=== PATIENT | female | born 1950 | race Caucasian/White ===

== ENCOUNTER 2017-08-05 15:41 | Inpatient (IN) | payer MEDICARE ==
[~2017-08-05] VITALS: Ht 172.7 cm; Wt 85.9 kg
[2017-08-05] VITALS (14 sets, daily range): BP systolic 183–211; BP diastolic 84–102; PULSE 57–102; RESP 14–17; TEMP 95.6–98.7; O2SAT 98–100
[~2017-08-05 15:41] MED LIST: ALEN70TA39 PO; ASPI81TA82 PO; CEFU1TAB42 PO; DEPA500T PO; DITR15TA PO; FISH100020 PO; LEVO75TA3 PO; LUMI0.01 EACH EYE; TOPA100T8 PO; UNIV15TA PO; [UNRECOGNIZED DRUG - CODE] PO
[2017-08-05] MEDS ORDERED: TOPI1TAB36 PO (15:52)
[2017-08-05] MEDS ORDERED: LUMI0.01 EACH EYE (15:52)
[2017-08-05] MEDS ORDERED: ALEN1TAB48 PO (15:52)
[2017-08-05] MEDS ORDERED: DEPA500T3 PO (15:52)
[2017-08-05] MEDS ORDERED: LEVO75TA3 PO (15:52)
[2017-08-05] MEDS ORDERED: ASPI81TA81 PO (15:52)
[2017-08-05] MEDS ORDERED: OXYB15TA PO (15:52)
[2017-08-05] MEDS ORDERED: DITR15TA PO (15:52)
[2017-08-05] MEDS ORDERED: LORazepam 2 MG/ML VIAL ONE (15:53)
[2017-08-05] MEDS ORDERED: MOEX15TA PO (15:59)
[2017-08-05] MEDS ORDERED: LORazepam 2 MG/ML VIAL IV PUSH ONE (16:00)
--- NOTE | 2017-08-05 16:02 | PD ---
HPI Chief Complaint: Altered Mental Status Time Seen by Provider: 15:46 Travel History International Travel<30 days: No Contact w/Intl Traveler<30days: No Traveled to known affect area: No History of Present Illness HPI 67-year-old female that presents to the ED via ambulance for evaluation of altered mental status. Patient apparently has a significant history of seizures. was at bedside on presentation. Per patient had an episode of slurred speech and confusion where she was altered. Per she' s had similar episodes like this whenever she gets a grand mal seizure. Per she seemed to be okay to the point that were he to the dresser and was cannot bring her here but by the time he got her dressed she started having grand mal seizure. She completely became altered. Ambulance showed up and was brought here for evaluation. Per patient did not fell or hit her head. No history of CVA. History significant for seizure disorder taking Depakote and Topamax. Patient apparently is compliant with his medications. No drugs or alcohol per . Patient has a history of hypertension and high cholesterol. Patient follows with Dr. Headley as her neurologist. Has not had a seizure in the past 3 years. She has not been able to give any history or obey commands since episode about less than an hour ago. No history is obtainable from patient. PFSH Past Medical History Arthritis: Yes Asthma: Yes Cancer: No Cardiovascular Problems: Yes High Cholesterol: Yes Congestive Heart Failure: No COPD: No Cerebrovascular Accident: No Diabetes: No Endocrine: Yes Gastrointestinal Disorders: Yes GERD: No Genitourinary: No Hypertension: Yes Immune Disorder: No Implanted Vascular Access Dvce: Yes Musculoskeletal: Yes Neurologic: Yes Psychiatric: No Reproductive: No Respiratory: Yes Migraines: Yes Seizures: Yes (last seizure dec, ) Thyroid Disease: Yes (HYPOTHYROIDISM) Ulcer: Yes Menopausal: Yes Past Surgical History Abdominal Surgery: Yes (hyst and ) Body Medical Devices: bilateral knee replacements Cardiac Surgery: No Ear Surgery: No Endocrine Surgery: No Eye Surgery: Yes (cataract removal) Genitourinary Surgery: No Gynecologic Surgery: Yes (, HYSTERECTOMY) Joint Replacement: Yes (BILATERAL KNEE REPLACEMENT) Neurologic Surgery: Yes (seizures) Oral Surgery: No Thoracic Surgery: Yes Other Surgery: Yes Social History Alcohol Use: No Tobacco Use: No Substance Use: No Allergies-Medications (Allergen,Severity, Reaction): Coded Allergies: fluconazole (Unverified Allergy, Severe, 08/05/17) hydromorphone (Unverified Allergy, Severe, 08/05/17) levetiracetam (Unverified Allergy, Severe, Anaphylaxis, 08/05/17) rifampin (Unverified Allergy, Severe, 08/05/17) phenytoin (Unverified Allergy, Mild, Rash, 08/05/17) Reported Meds & Prescriptions Reported Meds & Active Scripts Active Reported Moexipril (Moexipril HCl) 15 Mg Tab 15 Mg PO DAILY Aspir-81 (Aspirin) 81 Mg Tabdr 81 Mg PO DAILY Depakote ER (Divalproex Sodium) 500 Mg Louann 1,000 Mg PO BID Ditropan XL 24 HR (Oxybutynin Chloride) 15 Mg Tab 15 Mg PO DAILY Levothyroxine (Levothyroxine Sodium) 75 Mcg Tab 75 Mcg PO DAILY Oxybutynin ER 24 HR (Oxybutynin Chloride) 15 Mg Tab 15 Mg PO DAILY Alendronate (Alendronate Sodium) 70 Mg Tab 70 Mg PO Q7D Lumigan Opth Drops (Bimatoprost) 0.01% Soln 1 Drop EACH EYE HS Topiramate 50 Mg Tab 100 Mg PO BID Review of Systems ROS Limitations: Altered Mental Status Except as stated in HPI: all other systems reviewed are Neg Physical Exam Exam Limitations: Altered Mental Status Narrative GENERAL: SKIN: Warm and dry. HEAD: Atraumatic. Normocephalic. EYES: Pupils equal and round 4 mm reactive and accommodation. No scleral icterus. No injection or drainage. Vision and gaze moves to the right side with horizontal nystagmus noted ENT: No nasal bleeding or discharge. Mucous membranes pink and moist. Tongue is midline. No uvula deviation. NECK: Trachea midline. No JVD. CARDIOVASCULAR: Regular rate and rhythm. No murmurs, S3, S4. RESPIRATORY: No accessory muscle use. Clear to auscultation. Breath sounds equal bilaterally. GASTROINTESTINAL: Abdomen soft, non-tender, nondistended. Hepatic and splenic margins not palpable. MUSCULOSKELETAL: Extremities without clubbing, cyanosis, or edema. No obvious deformities. Cannot assess strength. Patient does appear to have full strength on the left hand which is the only one that she seems to be able to hold but unclear this is done by command or secondary to possible seizure. NEUROLOGICAL: Altered. No obvious cranial nerve deficits. Motor grossly within normal limits. Cannot assess strength secondary to patient's status. No speech can be obtained from patient. PSYCHIATRIC: Altered mood and affect; insight and judgment cannot assess. Data Data Last Documented VS Vital Signs Date Time Temp Pulse Resp B/P (MAP) Pulse Ox O2 Delivery O2 Flow Rate FiO2 08/05/17 17:22 57 14 203/90 (127) 100 Ventilator 60 08/05/17 16:43 95.6 Orders Orders Electrocardiogram (08/05/17 15:51) Complete Blood Count With Diff (08/05/17 15:51) Comprehensive Metabolic Panel (08/05/17 15:51) Ckmb (Isoenzyme) Profile (08/05/17 15:51) Troponin I (08/05/17 15:51) Prothrombin Time / Inr (Pt) (08/05/17 15:51) Act Partial Throm Time (Ptt) (08/05/17 15:51) Blood Culture (08/05/17 15:51) Urinalysis - C+S If Indicated (08/05/17 15:51) Cath For Specimen (08/05/17 15:51) Magnesium (Mg) (08/05/17 15:51) Thyroid Stimulating Hormone (08/05/17 15:51) Chest, Single Ap (08/05/17 15:51) Ct Brain W/O Iv Contrast(Rout) (08/05/17 15:51) Iv Access Insert/Monitor (08/05/17 15:51) Ecg Monitoring (08/05/17 15:51) Oxygen Administration (08/05/17 15:51) Oximetry (08/05/17 15:51) Blood Glucose (08/05/17 15:51) Drug Screen, Random Urine (08/05/17 15:51) Alcohol (Ethanol) (08/05/17 15:51) Salicylates (Aspirin) (08/05/17 15:51) Tylenol (Acetaminophen) (08/05/17 15:51) Lorazepam Inj (Ativan Inj) (08/05/17 16:00) Valproic Acid (Depakene) (08/05/17 15:51) Topiramate (Topamax) (08/05/17 15:51) Lactic Acid (08/05/17 15:51) Lorazepam Inj (Ativan Inj) (08/05/17 15:53) Etomidate Inj (Amidate Inj) (08/05/17 16:20) Succinylcholine Inj (Quelicin Inj) (08/05/17 16:20) Propofol 1000 Mg/100 Ml Inj (Diprivan 10 (08/05/17 16:30) Chest, Single Ap (08/05/17 ) Urinary Catheter Insert/Apply (08/05/17 16:30) Restraints Non-Violent SUKHWINDER.Q3H (08/05/17 17:15) Sodium Chlor 0.9% 1000 Ml Inj (Ns 1000 M (08/05/17 17:19) Arterial Blood Gas (Abg) (08/05/17 ) Admit Order (Ed Use Only) (08/05/17 17:26) Labs Laboratory Tests Test 08/05/17 15:50 08/05/17 16:38 08/05/17 16:52 08/05/17 17:20 White Blood Count 11.0 TH/MM3 Red Blood Count 3.99 MIL/MM3 Hemoglobin 13.6 GM/DL Hematocrit 41.3 % Mean Corpuscular Volume 103.5 FL Mean Corpuscular Hemoglobin 34.2 PG Mean Corpuscular Hemoglobin Concent 33.0 % Red Cell Distribution Width 13.9 % Platelet Count 158 TH/MM3 Mean Platelet Volume 8.8 FL Neutrophils (%) (Auto) 41.0 % Lymphocytes (%) (Auto) 46.4 % Monocytes (%) (Auto) 9.3 % Eosinophils (%) (Auto) 2.8 % Basophils (%) (Auto) 0.5 % Neutrophils # (Auto) 4.5 TH/MM3 Lymphocytes # (Auto) 5.1 TH/MM3 Monocytes # (Auto) 1.0 TH/MM3 Eosinophils # (Auto) 0.3 TH/MM3 Basophils # (Auto) 0.1 TH/MM3 CBC Comment DIFF FINAL Differential Comment Prothrombin Time 10.6 SEC Prothromb Time International Ratio 1.0 RATIO Activated Partial Thromboplast Time 24.0 SEC Blood Urea Nitrogen 27 MG/DL Creatinine 1.16 MG/DL Random Glucose 123 MG/DL Total Protein 7.6 GM/DL Albumin 3.9 GM/DL Calcium Level 9.0 MG/DL Magnesium Level 2.1 MG/DL Alkaline Phosphatase 44 U/L Aspartate Amino Transf (AST/SGOT) 31 U/L Alanine Aminotransferase (ALT/SGPT) 19 U/L Total Bilirubin 0.3 MG/DL Sodium Level 140 MEQ/L Potassium Level 4.1 MEQ/L Chloride Level 105 MEQ/L Carbon Dioxide Level 28.4 MEQ/L Anion Gap 7 MEQ/L Estimat Glomerular Filtration Rate 46 ML/MIN Total Creatine Kinase 66 U/L Troponin I 0.02 NG/ML Thyroid Stimulating Hormone 3rd Gen 3.440 uIU/ML Salicylates Level 3.5 MG/DL Acetaminophen Level LESS THAN 2.0 MCG/ML Valproic Acid (Depakene) Level 132 MCG/ML Ethyl Alcohol Level LESS THAN 3 MG/DL Lactic Acid Level 0.8 mmol/L Urine Color YELLOW Urine Turbidity CLEAR Urine pH 6.0 Urine Specific [place] 1.021 Urine Protein 100 mg/dL Urine Glucose (UA) NEG mg/dL Urine Ketones NEG mg/dL Urine Occult Blood LARGE Urine Nitrite NEG Urine Bilirubin NEG Urine Urobilinogen LESS THAN 2.0 MG/DL Urine Leukocyte Esterase NEG Urine RBC 40 /hpf Urine WBC 6 /hpf Microscopic Urinalysis Comment CATH-CULT NOT IND Urine Opiates Screen NEG Urine Barbiturates Screen NEG Urine Amphetamines Screen NEG Urine Benzodiazepines Screen NEG Urine Cocaine Screen NEG Urine Cannabinoids Screen NEG Blood Gas Puncture Site RT RADIAL Blood Gas Patient Temperature 98.6 Blood Gas HCO3 22 mmol/L Blood Gas Base Excess -2.1 mmol/L Blood Gas Oxygen Saturation 98 % Arterial Blood pH 7.37 Arterial Blood Partial Pressure CO2 40 mmHg Arterial Blood Partial Pressure O2 179 mmHG Arterial Blood Oxygen Content 16.9 Vol % Arterial Blood Carboxyhemoglobin 0.9 % Arterial Blood Methemoglobin 0.8 % Blood Gas Hemoglobin 12.0 G/DL Oxygen Delivery Device VENTILATOR Blood Gas Ventilator Setting [facility]//500/R14/P5/1 Blood Gas Inspired Oxygen 60 % [facility] Medical Decision Making Medical Screen Exam Complete: Yes Emergency Medical Condition: Yes Medical Record Reviewed: Yes Interpretation(s) CBC & BMP Diagram 08/05/17 15:50 Total Protein 7.6, Albumin 3.9, Calcium Level 9.0, Magnesium Level 2.1, Alkaline Phosphatase 44 L, Aspartate Amino Transf (AST/SGOT) 31, Alanine Aminotransferase (ALT/SGPT) 19, Total Bilirubin 0.3 depakoet elevated in the 130s tox negative Last Impressions Head CT 08/05/17 1551 Signed Impressions: Service Date/Time: Saturday, August 05, 2017 15:55 - CONCLUSION: Negative noncontrast CT. Mustapha Grossman MD Chest X-Ray 08/05/17 1551 Signed Impressions: Service Date/Time: Saturday, August 05, 2017 16:08 - CONCLUSION: The study is more Midinspiratory with patchy opacity now present in both lungs with no focal consolidation. This could represent a viral pneumonitis. Mustapha Grossman MD Chest X-Ray 08/05/17 0000 Signed Impressions: Service Date/Time: Saturday, August 05, 2017 16:41 - CONCLUSION: 1. Middle intubation and placement of nasogastric tube. 2. The lungs are now clear. Mustapha Grossman MD EKG shows sinus rhythm with no sign of acute ischemia or arrhythmia noted by me and attending. Differential Diagnosis Seizure versus altered mental status versus CVA versus status epilepticus versus respiratory failure versus medication side effect Narrative Course 67-year-old female that presents to the ED for evaluation of altered mental status. Patient was properly examined and was found to have signs and symptoms of unclear etiology but definitely consistent with upper mental status possible seizure versus CVA. I had my attending Dr. Taylor immediately evaluated the patient after I evaluated the patient. She recommends stat CT and also believes that this likely might be more seizure related secondary to her gaze and her nystagmus. Patient was given Ativan IV. CT was negative for CVA. Patient is started having difficulty with her breathing having more labored breathing. Because of this the decision was made to intubate the patient. Please refer to my attendings note on the procedure. Labs were essentially unremarkable other than for elevated Depakote level. My attending spoke with Dr. Gill who admitted the patient to the ICU. This was discussed with the family who agrees with plan. Procedures EKG Prior to Arrival: No Diagnosis Primary Impression: Status epilepticus Additional Impressions: Valproic acid toxicity Qualified Codes: T42.6X1A - Poisoning by other antiepileptic and sedative- hypnotic drugs, accidental (unintentional), initial encounter Acute respiratory failure Qualified Codes: J96.00 - Acute respiratory failure, unspecified whether with hypoxia or hypercapnia Hypertension Qualified Codes: I10 - Essential (primary) hypertension Altered mental status Qualified Codes: R41.82 - Altered mental status, unspecified Admitting Information Admitting Physician Requests: Admit Paul Banks Aug 05, 2017 16:02
[2017-08-05] MEDS ORDERED: SUCCINYLCHOLINE CHLORIDE 200 MG/10 ML VIAL ONE (16:20)
[2017-08-05] MEDS ORDERED: ETOMIDATE 40 MG/20 ML VIAL ONE (16:20)
--- NOTE | 2017-08-05 16:20 | RADRPT ---
EXAM DATE/TIME: 08/05/2017 15:55 [facility] COMPARISON: CT BRAIN W/O CONTRAST, December 24, 2014, 22:34. INDICATIONS : Altered mental status. RADIATION DOSE: 56.35 CTDIvol (mGy) MEDICAL HISTORY : Seizures. Hypertension. SURGICAL HISTORY : Hysterectomy. ENCOUNTER: Initial ACUITY: 1 day PAIN SCALE: Non-responsive LOCATION: cranial TECHNIQUE: Multiple contiguous axial images were obtained of the head. Using automated exposure control and adj ustment of the mA and/or kV according to patient size, radiation dose was kept as low as reasonably a chievable to obtain optimal diagnostic quality images. DICOM format image data is available electro nically for review and comparison. FINDINGS: CEREBRUM: The ventricles are normal for age with moderate atrophic change. No evidence of midline shift, mass l esion, hemorrhage or acute infarction. No extra-axial fluid collections are seen. POSTERIOR FOSSA: The cerebellum and brainstem are intact. The 4th ventricle is midline. The cerebellopontine angle i s unremarkable. EXTRACRANIAL: The visualized portion of the orbits is intact. SKULL: The calvaria is intact. No evidence of skull fracture. CONCLUSION: Negative noncontrast CT. Mustapha Grossman MD on August 05, 2017 at 16:18 Board Certified Radiologist. This report was verified electronically.
[2017-08-05 16:21] LABS: AUTOMATED NEUTROPHIL # 4.5 TH/MM3 (1.8-7.7); BASOPHIL # 0.1 TH/MM3 (0-0.2); BASOPHIL % 0.5 % (0.0-2.0); EOSINOPHIL # 0.3 TH/MM3 (0-0.4); EOSINOPHIL % 2.8 % (0.0-4.0); HEMATOCRIT 41.3 % (35.0-46.0); HEMO FLAGS DIFF FINAL; LYMPH % 46.4 % (9.0-44.0); LYMPHOCYTE # 5.1 TH/MM3 (1.0-4.8); MEAN CELL VOLUME 103.5 FL (80.0-100.0); MEAN CORPUSCULAR HEMOGLOBIN 34.2 PG (27.0-34.0); MONO % 9.3 % (0.0-8.0); PLATELET COUNT 158 TH/MM3 (150-450); RED BLOOD COUNT 3.99 MIL/MM3 (4.00-5.30); RED CELL DISTRIBUTION WIDTH 13.9 % (11.6-17.2)
--- NOTE | 2017-08-05 16:29 | RADRPT ---
EXAM DATE/TIME: 08/05/2017 16:08 [facility] COMPARISON: CHEST SINGLE AP, July 15, 2015, 4:19. INDICATIONS : Short of Breath MEDICAL HISTORY : Hypertension. Seizures SURGICAL HISTORY : Hysterectomy. ENCOUNTER: Initial ACUITY: 1 day PAIN SCORE: Non-responsive. LOCATION: Bilateral chest FINDINGS: A single AP erect portable view of the chest was obtained and demonstrates new patchy opacity in both perihilar regions at lung bases with no focal consolidation or effusion. The heart size is at the up per limits of normal. Postsurgical changes again noted in the spine with posterior fixation rods. The bony thorax is otherwise unremarkable. There are overlying electrocardiogram leads. CONCLUSION: The study is more Midinspiratory with patchy opacity now present in both lungs with no focal consolid ation. This could represent a viral pneumonitis. Mustapha Grossman MD on August 05, 2017 at 16:26 Board Certified Radiologist. This report was verified electronically.
[2017-08-05 16:37] LABS: PROTHROMBIN TIME - PATIENT 10.6 SEC (9.8-11.6)
[2017-08-05] MEDS: PROPOFOL 1000 MG/100 ML INJ 100 ML IV PRN ×2 (16:42→21:49)
[2017-08-05 17:06] LABS: ACETAMINOPHEN LESS THAN 2.0 MCG/ML (10.0-30.0); ALKALINE PHOSPHATASE 44 U/L (45-117); ALT (GPT) 19 U/L (10-53); ANION GAP 7 MEQ/L (5-15); AST (GOT) 31 U/L (15-37); BICARBONATE 28.4 MEQ/L (21.0-32.0); BLOOD UREA NITROGEN 27 MG/DL (7-18); CHLORIDE 105 MEQ/L (98-107); GLOMERULAR FILTRATION RATE 46 ML/MIN (>89); MAGNESIUM 2.1 MG/DL (1.5-2.5); POTASSIUM 4.1 MEQ/L (3.5-5.1); SODIUM (NA) 140 MEQ/L (136-145); TOTAL BILIRUBIN ADULT 0.3 MG/DL (0.2-1.0)
--- NOTE | 2017-08-05 17:06 | RADRPT ---
EXAM DATE/TIME: 08/05/2017 16:41 [facility] COMPARISON: CHEST SINGLE AP, August 05, 2017, 16:08. INDICATIONS : Post intubation. MEDICAL HISTORY : Hypertension. Seizures. SURGICAL HISTORY : Hysterectomy. ENCOUNTER: Initial ACUITY: 1 day PAIN SCORE: Non-responsive. LOCATION: Bilateral chest FINDINGS: A single view of the chest demonstrates the lungs to be symmetrically aerated without evidence of mas s, infiltrate or effusion. The cardiomediastinal contours are unremarkable. Osseous structures are stable in appearance with postoperative changes. The patient is status post intubation with the endot rayray tube tip approximately 2 cm above the alfreda. Nasogastric tube has been placed and is seen co ursing through the esophagus to the stomach. CONCLUSION: 1. Middle intubation and placement of nasogastric tube. 2. The lungs are now clear. Mustapha Grossman MD on August 05, 2017 at 17:04 Board Certified Radiologist. This report was verified electronically.
[2017-08-05 17:07] LABS: ALCOHOL LESS THAN 3 MG/DL (0-5); CREATINE KINASE 66 U/L (26-192)
[2017-08-05] MEDS ORDERED: SODIUM CHLOR 0.9% 1000 ML INJ 1,000 ML IV SCH (17:19)
[2017-08-05 17:32] LABS: BLOOD GAS BASE EXCESS -2.1 mmol/L (-2-2); BLOOD GAS CARBOXYHEMOGLOBIN 0.9 % (0-4); BLOOD GAS HCO3 22 mmol/L (22-26); BLOOD GAS METHEMOGLOBIN 0.8 % (0-2); BLOOD GAS O2 HGB SATURATION 98 % (90-100); BLOOD GAS OXYGEN CONTENT 16.9 Vol % (12.0-20.0); BLOOD GAS PCO2 40 mmHg (38-42); BLOOD GAS PO2 179 mmHG (61-120); TEMP CORR TO 98.6
[2017-08-05 17:33] LABS: CRITICAL VALUE NO; DRAW SITE RT RADIAL; FIO2 60 %; NUMBER OF ARTERIAL PUNCTURES 1; OXYGEN DEVICE VENTILATOR; STAT YES; ULNAR PULSE Y; VENT SETTINGS PRVC/AC/500/R14/P5/1
[2017-08-05] MEDS ORDERED: MAGNESIUM HYDROXIDE SUSP 30 ML CUP PO PRN (17:45)
[2017-08-05] MEDS ORDERED: LACTULOSE SYRUP 20 GM/30 ML CUP PO PRN (17:45)
[2017-08-05] MEDS ORDERED: SODIUM CHLORIDE 0.9% FLUSH 10 ML FLUSH IV FLUSH PRN (17:45)
[2017-08-05] MEDS ORDERED: LORazepam 2 MG/ML VIAL IV PUSH PRN (17:45)
[2017-08-05] MEDS ORDERED: ONDANSETRON HCL 4 MG/2 ML VIAL IV PUSH PRN (17:45)
[2017-08-05] MEDS ORDERED: MISCELLANEOUS NURSING INFORMATION XX SCH (17:45)
[2017-08-05] MEDS ORDERED: RESP: ALBUTEROL 2.5 MG/3 ML NEB (PRN) INH (17:45)
[2017-08-05] MEDS ORDERED: MIDAZOLAM 100 MG/100 ML INJ 100 ML IV PRN (17:45)
[2017-08-05] MEDS ORDERED: BISACODYL 10 MG SUPP RECTAL PRN (17:45)
[2017-08-05] MEDS ORDERED: CHLORHEXIDINE GLUCONATE 2 % 1 PACK (2 CLOTHS) TOP PRN (17:45)
[2017-08-05] MEDS ORDERED: SENNOSIDES 8.6 MG TAB PO PRN (17:45)
[2017-08-05 17:52] LABS: BLOOD, URINE LARGE (NEG); GLUCOSE,URINE NEG (NEG); KETONE, URINE NEG (NEG); NITRITE,URINE NEG (NEG); URINE COLOR YELLOW (YELLW/STRAW)
--- NOTE | 2017-08-05 17:52 | HHI.HP ---
[facility] Service Critical Care Medicine Primary Care Physician Tye Wing MD Admission Diagnosis Seizure, VDRF Diagnosis: (1) Acute respiratory failure Diagnosis: Principal (2) Hypothyroidism Diagnosis: Secondary (3) Dyslipidemia Diagnosis: Secondary (4) Aspiration into airway Diagnosis: Principal (5) Status epilepticus Diagnosis: Principal (6) Low back pain Diagnosis: Principal (7) Hypertension Diagnosis: Principal (8) Elevated IOP Diagnosis: Secondary (9) Gastroesophageal reflux disease Diagnosis: Principal (10) Overactive bladder Diagnosis: Secondary Chief Complaint: Patient found at home actively seizing and unresponsive Travel History International Travel<30 Days: No Contact w/Intl Traveler <30 Da: No Traveled to Known Affected Are: No History of Present Illness 67-year-old female. Date of admission 08/05/2017. Past medical history includes known seizure disorder on divalproex sodium and recently discontinued topiramate who presents to the [facility] ED via ambulance for evaluation of altered mental status. According to the Fatuma, this patient had an episode of nonsensical speech and confusion where she was a little bit altered after eating out at a local restaurant around 2 PM. According to her she has had similar episodes like this whenever she gets a grand mal seizure. She was driven home and was given 1000 mg of divalproex sodium as he thought she might not have taken her medication today. At that point, completely became altered. EMS arrived and was brought here for evaluation. Per patient did not fell or hit her head. No history of CVA. Patient apparently is compliant with his medications. No drugs or alcohol per . Patient follows with Dr. Headley as her neurologist and was recently told to discontinue her topiramate secondary to tremors. She has not had a seizure since 2014. At this facility, patient was altered the point were Dr. Taylor/ED physician and her clinical judgment assessed she needed oral airway protection and was intubated using 40 mg etomidate and 200 mg succinylcholine. Follow-up laboratories revealed normal CBC with slight acute kidney injury. Head CT showed no acute intracranial findings. Valproic acid was 132. Topiramate level pending. Patient is currently on Diprivan at 30 mu./kg per minute in the ED and spontaneous movement involving bilateral upper and lower extremities. She is quite hypertensive. We are asked to admit. Review of Systems ROS Limitations: Intubated Past Family Social History Allergies: Coded Allergies: fluconazole (Unverified Allergy, Severe, 08/05/17) hydromorphone (Unverified Allergy, Severe, 08/05/17) levetiracetam (Unverified Allergy, Severe, Anaphylaxis, 08/05/17) rifampin (Unverified Allergy, Severe, 08/05/17) phenytoin (Unverified Allergy, Mild, Rash, 08/05/17) Past Medical History Seizure disorder Osteoarthritis Elevated IOC Overactive bladder Hypothyroidism Gastroesophageal reflux disease Back low back pain Hypertension Dyslipidemia Past Surgical History Rotator cuff repair Hysterectomy Bilateral knees 12 Low back surgery/lumbar 5 with bilateral Wells rods placed Reported Medications Moexipril (Moexipril HCl) 15 Mg Tab 15 Mg PO DAILY Aspir-81 (Aspirin) 81 Mg Tabdr 81 Mg PO DAILY Depakote ER (Divalproex Sodium) 500 Mg Louann 1,000 Mg PO BID Ditropan XL 24 HR (Oxybutynin Chloride) 15 Mg Tab 15 Mg PO DAILY Levothyroxine (Levothyroxine Sodium) 75 Mcg Tab 75 Mcg PO DAILY Oxybutynin ER 24 HR (Oxybutynin Chloride) 15 Mg Tab 15 Mg PO DAILY Alendronate (Alendronate Sodium) 70 Mg Tab 70 Mg PO Q7D Lumigan Opth Drops (Bimatoprost) 0.01% Soln 1 Drop EACH EYE HS Topiramate 50 Mg Tab 100 Mg PO BID Active Ordered Medications Reviewed in EMR Family History Mother with decompensated CHF. Father not known to . No other documentation in reviewing prior records. Social History Quit EtOH and tobacco 30 years ago. No current usage present. No IV drug use. Physical Exam Vital Signs Vital Signs Date Time Temp Pulse Resp B/P (MAP) Pulse Ox O2 Delivery O2 Flow Rate FiO2 08/05/17 17:30 60 14 189/84 (119) 100 Ventilator 60 08/05/17 17:22 57 14 203/90 (127) 100 Ventilator 60 08/05/17 17:20 60 08/05/17 17:12 61 14 199/91 (127) 100 Ventilator 60 08/05/17 17:08 Ventilator 60 08/05/17 17:08 100 Ventilator 60 08/05/17 16:43 95.6 08/05/17 16:22 98 100 08/05/17 15:42 102 16 183/102 (129) 98 Physical Exam GENERAL: 67-year-old female, critically ill currently orotracheally intubated SKIN: Warm and dry. No rash. HEAD: Atraumatic. Normocephalic. EYES: Pupils equal and round around 3-4 mm bilaterally and brisk. No scleral icterus. No injection or drainage. ENT: No nasal bleeding or discharge. Mucous membranes pink and moist. Orotracheally intubated NECK: Trachea midline. No JVD. Supple. CARDIOVASCULAR: Regular rate and rhythm. 2/6 systolic murmur left lower sternal border RESPIRATORY: Few fine crackles appreciated anteriorly and posteriorly to bases. No wheezing.. Breath sounds equal bilaterally. GASTROINTESTINAL: Abdomen soft, non-tender, nondistended. Hypoactive bowel sounds are appreciated MUSCULOSKELETAL: Extremities without significant peripheral edema. No obvious deformities. Band-Aids over right third and fifth toes NEUROLOGICAL: Laboratory Laboratory Tests Test 08/05/17 15:50 08/05/17 16:38 08/05/17 16:52 08/05/17 17:20 White Blood Count 11.0 Red Blood Count 3.99 Hemoglobin 13.6 Hematocrit 41.3 Mean Corpuscular Volume 103.5 Mean Corpuscular Hemoglobin 34.2 Mean Corpuscular Hemoglobin Concent 33.0 Red Cell Distribution Width 13.9 Platelet Count 158 Mean Platelet Volume 8.8 Neutrophils (%) (Auto) 41.0 Lymphocytes (%) (Auto) 46.4 Monocytes (%) (Auto) 9.3 Eosinophils (%) (Auto) 2.8 Basophils (%) (Auto) 0.5 Neutrophils # (Auto) 4.5 Lymphocytes # (Auto) 5.1 Monocytes # (Auto) 1.0 Eosinophils # (Auto) 0.3 Basophils # (Auto) 0.1 CBC Comment DIFF FINAL Differential Comment Prothrombin Time 10.6 Prothromb Time International Ratio 1.0 Activated Partial Thromboplast Time 24.0 Blood Urea Nitrogen 27 Creatinine 1.16 Random Glucose 123 Total Protein 7.6 Albumin 3.9 Calcium Level 9.0 Magnesium Level 2.1 Alkaline Phosphatase 44 Aspartate Amino Transf (AST/SGOT) 31 Alanine Aminotransferase (ALT/SGPT) 19 Total Bilirubin 0.3 Sodium Level 140 Potassium Level 4.1 Chloride Level 105 Carbon Dioxide Level 28.4 Anion Gap 7 Estimat Glomerular Filtration Rate 46 Total Creatine Kinase 66 Troponin I 0.02 Thyroid Stimulating Hormone 3rd Gen 3.440 Salicylates Level 3.5 Acetaminophen Level LESS THAN 2.0 Valproic Acid (Depakene) Level 132 Ethyl Alcohol Level LESS THAN 3 Lactic Acid Level 0.8 Blood Gas Puncture Site RT RADIAL Blood Gas Patient Temperature 98.6 Blood Gas HCO3 22 Blood Gas Base Excess -2.1 Blood Gas Oxygen Saturation 98 Arterial Blood pH 7.37 Arterial Blood Partial Pressure CO2 40 Arterial Blood Partial Pressure O2 179 Arterial Blood Oxygen Content 16.9 Arterial Blood Carboxyhemoglobin 0.9 Arterial Blood Methemoglobin 0.8 Blood Gas Hemoglobin 12.0 Oxygen Delivery Device VENTILATOR Blood Gas Ventilator Setting [facility]/AC/500/R14/P5/1 Blood Gas Inspired Oxygen 60 Test 08/05/17 17:30 Date/Time Source Procedure Growth Status 08/05/17 16:38 Blood Peripheral Aerobic Blood Culture Pending Received 08/05/17 16:38 Blood Peripheral Anaerobic Blood Culture Pending Received Result Diagram: 08/05/17 1550 08/05/17 1550 Imaging Last Impressions Head CT 08/05/17 1551 Signed Impressions: Service Date/Time: Saturday, August 05, 2017 15:55 - CONCLUSION: Negative noncontrast CT. Mustapha Grossman MD Chest X-Ray 08/05/17 1551 Signed Impressions: Service Date/Time: Saturday, August 05, 2017 16:08 - CONCLUSION: The study is more Midinspiratory with patchy opacity now present in both lungs with no focal consolidation. This could represent a viral pneumonitis. MD Nory Motai VTE Risk Assessment Caprini VTE Risk Assessment: Mod/High Risk (score >= 2) Caprini Risk Assessment Model Point Value = 1 Point Value = 2 Point Value = 3 Point Value = 5 Age 41-60 Minor surgery BMI > 25 kg/m2 Swollen legs Varicose veins or History of unexplained or recurrent spontaneous Oral contraceptives or hormone replacement Sepsis (< 1 month) Serious lung disease, including pneumonia (< 1 month) Abnormal pulmonary function Acute myocardial infarction Congestive heart failure (< 1 month) History of inflammatory bowel disease Medical patient at bed rest Age 61-74 Arthroscopic surgery Major open surgery (> 45 min) Laparoscopic surgery (> 45 min) Malignancy Confined to bed (> 72 hours) Immobilizing plaster cast Central venous access Age >= 75 History of VTE Family history of VTE Factor V Leiden Prothrombin [id number] Lupus anticoagulant Anticardiolipin antibodies Elevated serum homocysteine Heparin-induced thrombocytopenia Other congenital or acquired thrombophilia Stroke (< 1 month) Elective arthroplasty Hip, pelvis, or leg fracture Acute spinal cord injury (< 1 month) Prophylaxis Regimen Total Risk Factor Score Risk Level Prophylaxis Regimen 0-1 Low Early ambulation 2 Moderate Order ONE of the following: *Sequential Compression Device (SCD) *Heparin 5000 units SQ BID 3-4 Higher Order ONE of the following medications: *Heparin 5000 units SQ TID *Enoxaparin/Lovenox 40 mg SQ daily (WT < 150 kg, CrCl > 30 mL/min) *Enoxaparin/Lovenox 30 mg SQ daily (WT < 150 kg, CrCl > 10-29 mL/min) *Enoxaparin/Lovenox 30 mg SQ BID (WT < 150 kg, CrCl > 30 mL/min) AND/OR *Sequential Compression Device (SCD) 5 or more Highest Order ONE of the following medications: *Heparin 5000 units SQ TID (Preferred with Epidurals) *Enoxaparin/Lovenox 40 mg SQ daily (WT < 150 kg, CrCl > 30 mL/min) *Enoxaparin/Lovenox 30 mg SQ daily (WT < 150 kg, CrCl > 10-29 mL/min) *Enoxaparin/Lovenox 30 mg SQ BID (WT < 150 kg, CrCl > 30 mL/min) AND *Sequential Compression Device (SCD) Assessment and Plan Assessment and Plan Neuro/Psych: Seizure disorder NOS Elevated IOC Patient is currently on propofol drip in the ED at 30 mics grams per kilogram per minute. Transition to Midazolam drip light of seizure activity Depakote level 132 in ED recheck in a.m. Start on divalproex 500 mg IV 3 times a day in a.m. after recheck Depakote level restart topiramate 100 mg by mouth twice a day MRI brain/EEG ordered neurology consultation Home medications on divalproex sodium 1000 mg twice a day recently discontinued topiramate 100 mg by mouth twice a day Seizure precautions Urine toxicology screen pending Continue bimatoprost 0.01% 1 drop each eye at night CV: Hypertension Dyslipidemia Continue moexipril 15 mill grams by mouth daily. As needed hydralazine, labetalol and Nitropaste keep systolic blood pressure less than 170 Currently not on any lipid-lowering agents at home Continue normal saline at 84 cc an hour Resp: Acute respiratory failure secondary to altered mental status/seizure [facility] 16/500/11/17/39 Ventilator bundle Albuterol/hypertrophy results every 6 hours with albuterol aerosols every 2 hours. Dyspnea Spontaneous breathing trials daily Echocardiogram 2014 revealed EF 60-65%. Grade 1 diastolic dysfunction. Mild MR. TWILA 39 mmHg GI: Gastroesophageal reflux disease Patient is currently nothing by mouth OGT to LIWS Lansoprazole for GI prophylaxis Docusate sodium/senna 1 tablet twice a day for bowel regimen : Ardon catheter for accurate I's and O's in a critically ill patient Endo: Hypothyroidism Continue levothyroxine 75 g daily recheck TSH in a.m. Sliding-scale insulin if indicated to maintain euglycemia Renal: Acute kidney injury? Creatinine currently slightly elevated. Recheck creatinine in a.m. Monitor urine output Accurate I's and O's Heme: Macrocytosis Monitor CBC daily. Follow trends ID: Start empirically on piperacillin/tazobactam and azithromycin Blood cultures 2, sputum and urine all pending MSK: Arthritis Chronic low back pain PT evaluate and treat FEN: Replace electrolytes as clinically indicated Access - Utilize peripheral IV. Central line if indicated Prophylaxis - GI - lansoprazole - DVT - heparin/SCDs Critical Care: The total critical care time was 35 minutes. Time to perform other separately billable procedures was not included in the critical care time. Code Status Full code Discussed Condition With Dr. Chan. Burris/. Care plan discussed questions answered. Problem Qualifiers (1) Acute respiratory failure: Qualified Codes: J96.00 - Acute respiratory failure, unspecified whether with hypoxia or hypercapnia (2) Hypothyroidism: Qualified Codes: E03.9 - Hypothyroidism, unspecified (3) Aspiration into airway: Qualified Codes: T17.908A - Unspecified foreign body in respiratory tract, part unspecified causing other injury, initial encounter (4) Low back pain: Qualified Codes: M54.5 - Low back pain; G89.29 - Other chronic pain (5) Hypertension: Qualified Codes: I10 - Essential (primary) hypertension (6) Elevated IOP: Qualified Codes: H40.053 - Ocular hypertension, bilateral (7) Gastroesophageal reflux disease: Qualified Codes: K21.9 - Gastro-esophageal reflux disease without esophagitis Tonny Lomeli MD Aug 05, 2017 17:52
[2017-08-05 17:53] LABS: COMMENT (UR) CATH-CULT NOT IND; CULTURE IF INDICATED CATH CULTURE NOT IND
[2017-08-05] MEDS ORDERED: CLEVIDIPINE INJ 50 ML IV PRN (18:00)
[2017-08-05] MEDS ORDERED: NITROGLYCERIN 2% OINT 1 GM PACKET TOPICAL PRN (18:00)
[2017-08-05] MEDS: RESP: ALBUTEROL 2.5 MG/IPRATROPIUM 0.5 MG NEB (SCH) INH (20:18)
[2017-08-05] MEDS: LATANOPROST 0.005% OPHT SOLN 2.5 ML BTL EACH EYE SCH (21:00)
[2017-08-05] MEDS ORDERED: TOPIRAMATE 25 MG TAB PO SCH (21:00)
[2017-08-05] MEDS: SODIUM CHLOR 0.9% 1000 ML INJ 1,000 ML IV SCH (21:41)
[2017-08-05] MEDS: AZITHROMYCIN INJ 500 MG in SODIUM CHLOR 0.9% 250 ML INJ 250 ML IV SCH (21:42)
[2017-08-05] MEDS: TOPIRAMATE 100 MG TAB PO SCH (21:43)
[2017-08-05] MEDS: DOCUSATE SODIUM 50 MG/SENNA 8.6 MG TAB PO SCH (21:43)
[2017-08-05] MEDS: SODIUM CHLORIDE 0.9% FLUSH 10 ML FLUSH IV FLUSH SCH (21:43)
[2017-08-05] MEDS: HEPARIN SODIUM - SQ 10,000 UNITS/ML VIAL SQ SCH (21:43)
[2017-08-05] MEDS: PIPERACIL-TAZO 4.5 GM PREMIX 100 ML IV SCH (21:43)
[2017-08-05] MEDS: hydrALAZINE HCL 20 MG/ML VIAL IV PUSH PRN (21:48)
[2017-08-05] MEDS: CHLORHEXIDINE 0.12% (ORAL KIT) 15 ML CUP MT SCH (21:50)
[2017-08-06] VITALS (26 sets, daily range): BP systolic 87–223; BP diastolic 51–95; PULSE 66–92; RESP 16–19; TEMP 98–100.2; O2SAT 100
[2017-08-06] MEDS: hydrALAZINE HCL 20 MG/ML VIAL IV PUSH PRN (01:59)
[2017-08-06] MEDS: PIPERACIL-TAZO 4.5 GM PREMIX 100 ML IV SCH ×4 (01:59→21:12)
[2017-08-06] MEDS: RESP: ALBUTEROL 2.5 MG/IPRATROPIUM 0.5 MG NEB (SCH) INH ×4 (02:51→21:29)
[2017-08-06] MEDS: CHLORHEXIDINE GLUCONATE 2 % 1 PACK (2 CLOTHS) TOP SCH (03:07)
[2017-08-06] MEDS: PROPOFOL 1000 MG/100 ML INJ 100 ML IV PRN ×5 (03:07→21:15)
[2017-08-06] MEDS: HEPARIN SODIUM - SQ 10,000 UNITS/ML VIAL SQ SCH ×3 (03:07→21:12)
[2017-08-06 03:55] LABS: AUTOMATED NEUTROPHIL # 7.7 TH/MM3 (1.8-7.7); BASOPHIL # 0.1 TH/MM3 (0-0.2); BASOPHIL % 0.5 % (0.0-2.0); EOSINOPHIL # 0.1 TH/MM3 (0-0.4); EOSINOPHIL % 1.1 % (0.0-4.0); HEMATOCRIT 41.4 % (35.0-46.0); HEMO FLAGS DIFF FINAL; LYMPH % 20.1 % (9.0-44.0); LYMPHOCYTE # 2.2 TH/MM3 (1.0-4.8); MEAN CELL VOLUME 103.7 FL (80.0-100.0); MEAN CORPUSCULAR HEMOGLOBIN 34.5 PG (27.0-34.0); MEAN CORPUSCULAR HGB CONC 33.3 % (32.0-36.0); MONO % 9.8 % (0.0-8.0); NEUT % 68.5 % (16.0-70.0); PLATELET COUNT 102 TH/MM3 (150-450); RED BLOOD COUNT 3.99 MIL/MM3 (4.00-5.30); RED CELL DISTRIBUTION WIDTH 14.1 % (11.6-17.2); WHITE BLOOD COUNT 11.2 TH/MM3 (4.0-11.0)
[2017-08-06 04:09] LABS: ALT (GPT) 25 U/L (10-53); ANION GAP 10 MEQ/L (5-15); AST (GOT) 28 U/L (15-37); BICARBONATE 23.7 MEQ/L (21.0-32.0); BLOOD UREA NITROGEN 19 MG/DL (7-18); CHLORIDE 107 MEQ/L (98-107); GLOMERULAR FILTRATION RATE 63 ML/MIN (>89); MAGNESIUM 1.9 MG/DL (1.5-2.5); POTASSIUM 3.2 MEQ/L (3.5-5.1); SODIUM (NA) 141 MEQ/L (136-145)
[2017-08-06 04:10] LABS: ALKALINE PHOSPHATASE 39 U/L (45-117); TOTAL BILIRUBIN ADULT 0.5 MG/DL (0.2-1.0)
[2017-08-06] MEDS: LEVOTHYROXINE SODIUM 75 MCG TAB PO SCH (05:35)
[2017-08-06] MEDS: SODIUM CHLOR 0.9% 1000 ML INJ 1,000 ML IV SCH ×3 (05:39→17:34)
[2017-08-06] MEDS ORDERED: VALPROATE INJ 500 MG in SODIUM CHLORIDE 0.9% INJ 100 ML IV SCH (08:00)
--- NOTE | 2017-08-06 08:22 | HHI.CCPN ---
Subjective Remarks/Hospital Course 67-year-old female. Date of admission 08/05/2017. Past medical history includes known seizure disorder on divalproex sodium and recently discontinued topiramate who presents to the [place] ED via ambulance for evaluation of altered mental status. According to the Fatuma, this patient had an episode of nonsensical speech and confusion where she was a little bit altered after eating out at a local restaurant around 2 PM. According to her she has had similar episodes like this whenever she gets a grand mal seizure. She was driven home and was given 1000 mg of divalproex sodium as he thought she might not have taken her medication today. At that point, completely became altered. EMS arrived and was brought here for evaluation. Per patient did not fell or hit her head. No history of CVA. Patient apparently is compliant with his medications. No drugs or alcohol per . Patient follows with Dr. Headley as her neurologist and was recently told to discontinue her topiramate secondary to tremors. She has not had a seizure since 2014. At this facility, patient was altered the point were Dr. Taylor/ED physician and her clinical judgment assessed she needed oral airway protection and was intubated using 40 mg etomidate and 200 mg succinylcholine. Follow-up laboratories revealed normal CBC with slight acute kidney injury. Head CT showed no acute intracranial findings. Valproic acid was 132. Topiramate level pending. Patient is currently on Diprivan at 30 mu./kg per minute in the ED and spontaneous movement involving bilateral upper and lower extremities. She is quite hypertensive. We are asked to admit. Subjective 08/06: Afebrile. No active seizing. Awake and will follow commands. Plan for MRI brain prior to extubation. Right side appears somewhat weaker. Objective Vital Signs Date Time Temp Pulse Resp B/P (MAP) Pulse Ox O2 Delivery O2 Flow Rate FiO2 08/06/17 07:20 100 40 08/06/17 06:00 83 08/06/17 04:00 98.5 16 156/72 (100) 08/05/17 18:11 Ventilator Intake and Output 08/06/17 08/06/17 08/07/17 08:00 16:00 00:00 Intake Total 2099 ml Output Total 2001 ml Balance 98 ml Result Diagram: 08/06/17 0345 08/06/17 0345 Other Results Microbiology Date/Time Source Procedure Growth Status 08/05/17 16:38 Blood Peripheral Aerobic Blood Culture Pending Received 08/05/17 16:38 Blood Peripheral Anaerobic Blood Culture Pending Received Imaging Last Impressions Head CT 08/05/17 1551 Signed Impressions: Service Date/Time: Saturday, August 05, 2017 15:55 - CONCLUSION: Negative noncontrast CT. Mustapha Grossman MD Chest X-Ray 08/05/17 1551 Signed Impressions: Service Date/Time: Saturday, August 05, 2017 16:08 - CONCLUSION: The study is more Midinspiratory with patchy opacity now present in both lungs with no focal consolidation. This could represent a viral pneumonitis. Mustapha Grossman MD Objective Remarks GENERAL: 67-year-old female, critically ill currently orotracheally intubated SKIN: Warm and dry. No rash. HEAD: Atraumatic. Normocephalic. EYES: Pupils equal and round around 3-4 mm bilaterally and brisk. No scleral icterus. No injection or drainage. ENT: No nasal bleeding or discharge. Mucous membranes pink and moist. Orotracheally intubated NECK: Trachea midline. No JVD. Supple. CARDIOVASCULAR: Regular rate and rhythm. 2/6 systolic murmur left lower sternal border RESPIRATORY: Few fine crackles appreciated anteriorly and posteriorly to bases. No wheezing.. Breath sounds equal bilaterally. GASTROINTESTINAL: Abdomen soft, non-tender, nondistended. Hypoactive bowel sounds are appreciated MUSCULOSKELETAL: Extremities without significant peripheral edema. No obvious deformities. Band-Aids over right third and fifth toes NEUROLOGICAL: Cranial nerves II-12 grossly intact. No facial droop. Moving all 4 extremities spontaneous however right upper and lower extremity slightly weaker than left. Urinary Catheter: Yes Assessment to: Continue Vascular Central Line Catheter: No Assessment to: Continue A/P Assessment and Plan Neuro/Psych: Seizure disorder NOS Elevated IOC Patient is currently on propofol drip in the ED at 20 mics grams per kilogram per minute. Transition to Midazolam drip light of seizure activity not complete patient currently not actively seizing Depakote level 132 in ED recheck in a.m. was 101 Start on divalproex 500 mg IV 3 times a day in a.m. after discussion with Dr. Jiang/neurology restart topiramate 100 mg by mouth twice a day MRI brain/EEG ordered to be completed this AM 08/06 neurology consultation appreciated Home medications on divalproex sodium 1000 mg twice a day recently discontinued topiramate 100 mg by mouth twice a day Seizure precautions Urine toxicology screen negative Continue bimatoprost 0.01% 1 drop each eye at night are elevated IO CV: Hypertension Dyslipidemia Continue moexipril 15 mill grams by mouth daily. As needed hydralazine, labetalol and Nitropaste keep systolic blood pressure less than 170 Currently not on any lipid-lowering agents at home Continue normal saline at 84 cc an hour Resp: Acute respiratory failure secondary to altered mental status/seizure [facility] 16/500/11/17/39 Ventilator bundle Albuterol/hypertrophy results every 6 hours with albuterol aerosols every 2 hours. Dyspnea Spontaneous breathing trials daily Echocardiogram 2014 revealed EF 60-65%. Grade 1 diastolic dysfunction. Mild MR. TWILA 39 mmHg GI: Gastroesophageal reflux disease Patient is currently nothing by mouth OGT to LIWS Lansoprazole for GI prophylaxis Docusate sodium/senna 1 tablet twice a day for bowel regimen : Ardon catheter for accurate I's and O's in a critically ill patient Endo: Hypothyroidism Continue levothyroxine 75 g daily recheck TSH in a.m. Sliding-scale insulin if indicated to maintain euglycemia Renal: Acute kidney injury? Creatinine currently slightly elevated. Recheck creatinine in a.m. Monitor urine output Accurate I's and O's Heme: Macrocytosis Leukocytosis Thrombocytopenia Monitor CBC daily. Follow trends ID: Start empirically on piperacillin/tazobactam and azithromycin Blood cultures 2, sputum and urine all pending MSK: Arthritis Chronic low back pain PT evaluate and treat FEN: Hypokalemia 40 mEq KCl by tube, 30 mEq IV 1 now. Recheck in a.m. Replace electrolytes as clinically indicated Access - Utilize peripheral IV. Central line if indicated Prophylaxis - GI - lansoprazole - DVT - heparin/SCDs Critical Care: The total critical care time was 35 minutes. Time to perform other separately billable procedures was not included in the critical care time. Tonny Lomeli MD Aug 06, 2017 08:22
[2017-08-06] MEDS: DOCUSATE SODIUM 50 MG/SENNA 8.6 MG TAB PO SCH ×2 (08:26→21:14)
[2017-08-06] MEDS: SODIUM CHLORIDE 0.9% FLUSH 10 ML FLUSH IV FLUSH SCH ×2 (08:26→21:14)
[2017-08-06] MEDS: LANSOPRAZOLE SOLUTAB 30 MG TAB G-TUBE SCH (08:26)
[2017-08-06] MEDS: CHLORHEXIDINE 0.12% (ORAL KIT) 15 ML CUP MT SCH ×3 (08:26→21:26)
[2017-08-06] MEDS: LISINOPRIL 20 MG TAB PO SCH (08:27)
[2017-08-06] MEDS: TOPIRAMATE 100 MG TAB PO SCH ×2 (08:27→21:13)
[2017-08-06] MEDS: ASPIRIN EC 81 MG TABEC PO SCH (08:45)
[2017-08-06] MEDS: ARTIFICIAL TEARS OPTH SOLN 15 ML BTL EACH EYE SCH ×3 (08:46→18:00)
[2017-08-06] MEDS ORDERED: POTASSIUM CHLORIDE 20 MEQ PWD PACKET OG-TUBE ONE (09:00)
--- NOTE | 2017-08-06 09:29 | MB ---
cc: FRED SINGH M.D. DATE OF CONSULTATION: 08/06/2017 HISTORY OF PRESENT ILLNESS She is unable to provide history. The EMR records were reviewed. She is 67 and has a history of seizure disorder, apparently taking valproic acid 1000 mg twice a day. Recently her topiramate was discontinued because of tremors. Yesterday she had some confusion, nonsensical speech and her gave her 1000 mg of Depakote thinking she might not have taken her medication regularly. She was brought to the hospital. There was some respiratory change and she was intubated. There had been no seizure recurrence. She has been given midazolam and propofol. The subsequent valproic acid level was 132 yesterday and this morning is 101. She was restarted on the topiramate 100 mg twice a day and as discussed with Dr. Lomeli, we will restart valproic acid 500 mg three times a day. She is to have an EEG. She follows with Dr. Headley for neurological care. NEUROLOGIC EXAMINATION The exam showed that the patient is awakened to stimulation and actually she was following simple commands, moving the lower extremities and gripping. The head butler on request of the right upper extremity is equivocal. The pupils were about same size, reactive. Reflexes were 1+, plantar responses probably flexor bilaterally. LABORATORY DATA Laboratory data noted. Today WBC 11.2, hemoglobin 13.8, platelets 102 and platelets yesterday were 158. Chemistry with BUN 19, creatinine 0.89 and these numbers are a little bit better than yesterday. Glucose today 126. ASSESSMENT Presumed seizure recurrence. Recent discontinuation of topiramate may have been the precipitating factor. The valproic acid level was elevated yesterday, possibly reflecting the fact that the patient may have taken extra valproic acid yesterday. Resume valproic as discussed above and topiramate as well. Obtain an EEG and monitor her neurological course. Thank you for asking us to assist in her care. Fred Singh MD OFC/TLL /8:23 AM /9:10 AM
[2017-08-06] MEDS: POTASSIUM CHLOR 10 MEQ PREMIX 100 ML IV SCH ×2 (09:31→09:32)
--- NOTE | 2017-08-06 13:07 | RADRPT ---
EXAM DATE/TIME: 08/06/2017 11:27 [facility] COMPARISON: CT BRAIN W/O CONTRAST, August 05, 2017, 15:55. INDICATIONS : Seizures. MEDICAL HISTORY : Hypertension. Seizures. Arthritis. SURGICAL HISTORY : section. Fusion, lumbar. Orthopaedic. ENCOUNTER: Initial ACUITY: 1 day PAIN SCORE: 0/10 LOCATION: cranial TECHNIQUE: Multiplanar, multisequence MRI of the brain was performed without contrast. FINDINGS: There is severe motion artifact CEREBRUM: There is general atrophy. Ventricles are within normal limits given the degree of atrophy present. No evidence of midline shift, mass lesion, hemorrhage or acute infarction. No extraaxial fluid collect ions are seen. The pituitary gland and suprasellar cistern are normal in configuration. WHITE MATTER: There is mild periventricular white matter signal change. POSTERIOR FOSSA: The cerebellum and brainstem are intact. The 4th ventricle is midline. The cerebellopontine angle is unremarkable. The cerebellar tonsils are normal in position. DIFFUSION IMAGING: No focal areas of restricted diffusion are seen. No evidence of acute infarction. EXTRACRANIAL: The visualized portions of the orbits and paranasal sinuses are unremarkable. CONCLUSION: 1. Examination quality is significantly degraded by motion artifact. However, no acute finding is edwin ntified. 2. Chronic changes include generalized atrophy and mild white matter changes characteristic of chroni c microvascular ischemia. Bautista Mendez MD on August 06, 2017 at 13:01 Board Certified Radiologist. This report was verified electronically.
[2017-08-06] MEDS: VALPROATE INJ 500 MG in SODIUM CHLORIDE 0.9% INJ 100 ML IV SCH ×2 (13:33→21:13)
--- NOTE | 2017-08-06 13:44 | EKG ---
Date Performed: 08/05/2017 Time Performed: 15:50:23 PTAGE: 67 years EKG: SINUS TACHYCARDIA MODERATE ST DEPRESSION Compared to previous tracing, HR is faster and ST- T change is slightly more prominent ABNORMAL ECG PREVIOUS TRACING : 12/24/2014 21.45 DOCTOR: Anthony Flores Interpretating Date/Time 08/06/2017 13:43:18
[2017-08-06] MEDS ORDERED: MIDAZOLAM 100 MG/100 ML INJ 100 ML IV PRN (18:15)
[2017-08-06] MEDS: LATANOPROST 0.005% OPHT SOLN 2.5 ML BTL EACH EYE SCH (21:00)
[2017-08-06] MEDS: AZITHROMYCIN INJ 500 MG in SODIUM CHLOR 0.9% 250 ML INJ 250 ML IV SCH (21:12)
--- NOTE | 2017-08-06 21:12 | MG ---
cc: FRED SINGH M.D. Lab No: Date: 08/06/2017 Age: Sex: F Race: REQUESTING PHYSICIAN Dr. Lomeli. INTRODUCTION An EEG was obtained on this 67-year-old patient intubated, sedated on Diprivan. Diprivan was not turned off. There is a history of slurred speech, seizure, confusion. MEDICATIONS 1. Synthroid. 2. Apresoline. 3. Propofol. DESCRIPTION The EEG shows a mixture of rhythms. There are some alpha rhythms posteriorly, but there is also theta and delta activity bilaterally. There are beta rhythms centrally and frontally. The patient seems to be mostly asleep but there is some awakening and the tracing overall is fairly symmetrical. Photic stimulation was unremarkable. INTERPRETATION Abnormal EEG because of mild to moderate intermittent slowing bilaterally suggesting a diffuse disturbance of cerebral function. No epileptiform features present. MD TAO Ortiz/ALBINA /8:58 PM /9:04 PM MTDDonell
[2017-08-07] VITALS (20 sets, daily range): BP systolic 133–173; BP diastolic 63–78; PULSE 82–110; RESP 16–30; TEMP 98.4–100.2; O2SAT 98–100
[2017-08-07] MEDS: PIPERACIL-TAZO 4.5 GM PREMIX 100 ML IV SCH ×4 (02:23→20:00)
[2017-08-07] MEDS: CHLORHEXIDINE GLUCONATE 2 % 1 PACK (2 CLOTHS) TOP SCH (04:00)
[2017-08-07] MEDS: PROPOFOL 1000 MG/100 ML INJ 100 ML IV PRN (04:02)
[2017-08-07] MEDS: HEPARIN SODIUM - SQ 10,000 UNITS/ML VIAL SQ SCH ×3 (04:05→20:00)
[2017-08-07] MEDS: RESP: ALBUTEROL 2.5 MG/IPRATROPIUM 0.5 MG NEB (SCH) INH ×4 (04:39→21:20)
[2017-08-07] MEDS: SODIUM CHLOR 0.9% 1000 ML INJ 1,000 ML IV SCH ×2 (05:32→12:55)
[2017-08-07] MEDS: LEVOTHYROXINE SODIUM 75 MCG TAB PO SCH (05:32)
[2017-08-07] MEDS: VALPROATE INJ 500 MG in SODIUM CHLORIDE 0.9% INJ 100 ML IV SCH ×3 (05:32→22:09)
--- NOTE | 2017-08-07 07:35 | HHI.CCPN ---
Subjective Remarks/Hospital Course 67-year-old female. Date of admission 08/05/2017. Past medical history includes known seizure disorder on divalproex sodium and recently discontinued topiramate who presents to the [facility] ED via ambulance for evaluation of altered mental status. According to the Fatuma, this patient had an episode of nonsensical speech and confusion where she was a little bit altered after eating out at a local restaurant around 2 PM. According to her she has had similar episodes like this whenever she gets a grand mal seizure. She was driven home and was given 1000 mg of divalproex sodium as he thought she might not have taken her medication today. At that point, completely became altered. EMS arrived and was brought here for evaluation. Per patient did not fell or hit her head. No history of CVA. Patient apparently is compliant with his medications. No drugs or alcohol per . Patient follows with Dr. Headley as her neurologist and was recently told to discontinue her topiramate secondary to tremors. She has not had a seizure since 2014. At this facility, patient was altered the point were Dr. Taylor/ED physician and her clinical judgment assessed she needed oral airway protection and was intubated using 40 mg etomidate and 200 mg succinylcholine. Follow-up laboratories revealed normal CBC with slight acute kidney injury. Head CT showed no acute intracranial findings. Valproic acid was 132. Topiramate level pending. Patient is currently on Diprivan at 30 mu./kg per minute in the ED and spontaneous movement involving bilateral upper and lower extremities. She is quite hypertensive. We are asked to admit. Subjective 08/06: Afebrile. No active seizing. Awake and will follow commands. Plan for MRI brain prior to extubation. Right side appears somewhat weaker. 08/07 No events overnight. Sedated with Diprivan and intubated. Afebrile. Objective Vital Signs Date Time Temp Pulse Resp B/P (MAP) Pulse Ox O2 Delivery O2 Flow Rate FiO2 08/07/17 06:00 82 08/07/17 04:39 100 40 08/07/17 04:00 100.2 16 163/72 (102) 08/05/17 18:11 Ventilator Intake and Output 08/07/17 08/07/17 08/08/17 08:00 16:00 00:00 Intake Total 1582 ml Output Total 550 ml Balance 1032 ml Result Diagram: 08/06/17 0345 08/06/17 0345 Other Results Laboratory Tests Test 08/07/17 04:18 Imaging Last Impressions Brain MRI 08/06/17 0600 Signed Impressions: Service Date/Time: Sunday, August 06, 2017 11:27 - CONCLUSION: 1. Examination quality is significantly degraded by motion artifact. However, no acute finding is identified. 2. Chronic changes include generalized atrophy and mild white matter changes characteristic of chronic microvascular ischemia. Bautista Mendez MD Head CT 08/05/17 1551 Signed Impressions: Service Date/Time: Saturday, August 05, 2017 15:55 - CONCLUSION: Negative noncontrast CT. Mustapha Grossman MD Chest X-Ray 08/05/17 155 Signed Impressions: Service Date/Time: Saturday, August 05, 2017 16:08 - CONCLUSION: The study is more Midinspiratory with patchy opacity now present in both lungs with no focal consolidation. This could represent a viral pneumonitis. Mustapha Grossman MD Objective Remarks GENERAL: 67-year-old female, critically ill currently orotracheally intubated SKIN: Warm and dry. No rash. HEAD: Atraumatic. Normocephalic. EYES: Pupils equal and round around 3-4 mm bilaterally and brisk. No scleral icterus. No injection or drainage. ENT: No nasal bleeding or discharge. Mucous membranes pink and moist. Orotracheally intubated NECK: Trachea midline. No JVD. Supple. CARDIOVASCULAR: Regular rate and rhythm. 2/6 systolic murmur left lower sternal border RESPIRATORY: Few fine crackles appreciated anteriorly and posteriorly to bases. No wheezing.. Breath sounds equal bilaterally. GASTROINTESTINAL: Abdomen soft, non-tender, nondistended. Hypoactive bowel sounds are appreciated MUSCULOSKELETAL: Extremities without significant peripheral edema. No obvious deformities. Band-Aids over right third and fifth toes NEUROLOGICAL: Cranial nerves II-12 grossly intact. No facial droop. Moving all 4 extremities spontaneous however right upper and lower extremity slightly weaker than left. A/P Assessment and Plan Neuro/Psych: Seizure disorder NOS Elevated IOC On Diprivan infusion for sedation. Daily sedation vacation. Depakote level 132 in ED then 101, follow up on level today Topiramate 100 mg by mouth twice a day 9/24 MRI brain: no acute finding is identified. Chronic changes include generalized atrophy and mild white matter changes characteristic of chronic microvascular ischemia. neurology is following- Dr. Jiang Seizure precautions Urine toxicology screen negative Continue bimatoprost 0.01% 1 drop each eye at night for elevated IOC CV: Hypertension Dyslipidemia On Lisinopril 20mg daily, ASA 81mg daily As needed hydralazine, labetalol and Nitropaste keep systolic blood pressure less than 170 Continue normal saline at 84 cc an hour Resp: Acute respiratory failure secondary to altered mental status/seizure [facility] /11/17/39 Ventilator bundle Albuterol/hypertrophy results every 6 hours with albuterol aerosols every 2 hours. Dyspnea Spontaneous breathing trials daily Echocardiogram 2014 revealed EF 60-65%. Grade 1 diastolic dysfunction. Mild MR. PAP 39 mmHg GI: Gastroesophageal reflux disease Continue tube feeds- Vital 1.5@30ml/hr Lansoprazole for GI prophylaxis Docusate sodium/senna 1 tablet twice a day for bowel regimen : Monitor renal function, I/O's, electrolytes replacement per protocol. d/c IVF Endo: Hypothyroidism Continue levothyroxine 75 g daily, TSH:3.44 Sliding-scale insulin if indicated to maintain euglycemia Heme: Macrocytosis Leukocytosis Thrombocytopenia Monitor CBC daily. Follow trends ID: Continue with empiric abx( Zosyn and azithromycin)monitor for signs of infections ( Fever, WBC) Blood cultures 08/05: NGTD, check sputum cx. MSK: Arthritis Chronic low back pain PT evaluate and treat Access - Utilize peripheral IV. Central line if indicated Prophylaxis - GI - lansoprazole - DVT - heparin/SCDs Critical Care: The total critical care time was 30 minutes. Time to perform other separately billable procedures was not included in the critical care time. Frankie Mark MD Aug 07, 2017 07:35
[2017-08-07] MEDS: CHLORHEXIDINE 0.12% (ORAL KIT) 15 ML CUP MT SCH ×4 (08:00→20:00)
[2017-08-07] MEDS: ASPIRIN EC 81 MG TABEC PO SCH (08:10)
[2017-08-07] MEDS: LANSOPRAZOLE SOLUTAB 30 MG TAB G-TUBE SCH (08:10)
[2017-08-07] MEDS: DOCUSATE SODIUM 50 MG/SENNA 8.6 MG TAB PO SCH ×2 (08:10→20:46)
[2017-08-07] MEDS: LISINOPRIL 20 MG TAB PO SCH (08:10)
[2017-08-07] MEDS: TOPIRAMATE 100 MG TAB PO SCH ×2 (08:10→20:46)
[2017-08-07] MEDS: SODIUM CHLORIDE 0.9% FLUSH 10 ML FLUSH IV FLUSH SCH ×2 (08:11→20:47)
[2017-08-07] MEDS: ARTIFICIAL TEARS OPTH SOLN 15 ML BTL EACH EYE SCH ×3 (09:00→17:49)
[2017-08-07 09:06] LABS: AUTOMATED NEUTROPHIL # 9.7 TH/MM3 (1.8-7.7); BASOPHIL # 0.1 TH/MM3 (0-0.2); BASOPHIL % 0.5 % (0.0-2.0); EOSINOPHIL # 0.1 TH/MM3 (0-0.4); EOSINOPHIL % 0.6 % (0.0-4.0); HEMATOCRIT 38.5 % (35.0-46.0); HEMO FLAGS DIFF FINAL; LYMPH % 13.7 % (9.0-44.0); LYMPHOCYTE # 1.9 TH/MM3 (1.0-4.8); MEAN CELL VOLUME 104.8 FL (80.0-100.0); MEAN CORPUSCULAR HEMOGLOBIN 33.8 PG (27.0-34.0); MEAN CORPUSCULAR HGB CONC 32.2 % (32.0-36.0); MONO % 14.6 % (0.0-8.0); NEUT % 70.6 % (16.0-70.0); PLATELET COUNT 108 TH/MM3 (150-450); RED BLOOD COUNT 3.67 MIL/MM3 (4.00-5.30); RED CELL DISTRIBUTION WIDTH 14.9 % (11.6-17.2); WHITE BLOOD COUNT 13.7 TH/MM3 (4.0-11.0)
[2017-08-07 10:33] LABS: BICARBONATE 20.8 MEQ/L (21.0-32.0); MAGNESIUM 2.1 MG/DL (1.5-2.5); POTASSIUM 3.8 MEQ/L (3.5-5.1)
[2017-08-07] MEDS: hydrALAZINE HCL 20 MG/ML VIAL IV PUSH PRN (12:04)
[2017-08-07 13:40] LABS: BLOOD GAS BASE EXCESS -3.8 mmol/L (-2-2); BLOOD GAS CARBOXYHEMOGLOBIN 1.2 % (0-4); BLOOD GAS HCO3 21 mmol/L (22-26); BLOOD GAS METHEMOGLOBIN 1.3 % (0-2); BLOOD GAS O2 HGB SATURATION 96 % (90-100); BLOOD GAS OXYGEN CONTENT 24.9 Vol % (12.0-20.0); BLOOD GAS PCO2 36 mmHg (38-42); BLOOD GAS PO2 121 mmHg (61-120); BLOOD GAS TOTAL HGB 18.3 G/DL (12.0-16.0); CRITICAL VALUE NO; DRAW SITE RT RADIAL; FIO2 40 %; NUMBER OF ARTERIAL PUNCTURES 1; STAT NO; TEMP CORR TO 98.6; ULNAR PULSE PRESENT; VENT SETTINGS CPAP5/PS5
[2017-08-07 13:42] LABS: OXYGEN DEVICE VENTILATOR
[2017-08-07] MEDS: LATANOPROST 0.005% OPHT SOLN 2.5 ML BTL EACH EYE SCH (20:01)
[2017-08-07] MEDS: AZITHROMYCIN INJ 500 MG in SODIUM CHLOR 0.9% 250 ML INJ 250 ML IV SCH (20:47)
[2017-08-08] VITALS (14 sets, daily range): BP systolic 127–154; BP diastolic 58–68; PULSE 71–93; RESP 14–23; TEMP 97.7–99.5; O2SAT 96–100
[2017-08-08] MEDS: PIPERACIL-TAZO 4.5 GM PREMIX 100 ML IV SCH ×4 (02:48→20:21)
[2017-08-08] MEDS: RESP: ALBUTEROL 2.5 MG/IPRATROPIUM 0.5 MG NEB (SCH) INH ×4 (03:34→22:36)
[2017-08-08] MEDS: CHLORHEXIDINE GLUCONATE 2 % 1 PACK (2 CLOTHS) TOP SCH (04:00)
[2017-08-08] MEDS: LEVOTHYROXINE SODIUM 75 MCG TAB PO SCH (05:44)
[2017-08-08] MEDS: HEPARIN SODIUM - SQ 10,000 UNITS/ML VIAL SQ SCH ×3 (05:44→20:21)
[2017-08-08] MEDS: VALPROATE INJ 500 MG in SODIUM CHLORIDE 0.9% INJ 100 ML IV SCH ×3 (05:46→22:28)
[2017-08-08 06:03] LABS: AUTOMATED NEUTROPHIL # 8.3 TH/MM3 (1.8-7.7); BASOPHIL % 0.3 % (0.0-2.0); EOSINOPHIL # 0.3 TH/MM3 (0-0.4); HEMATOCRIT 37.2 % (35.0-46.0); HEMO FLAGS DIFF FINAL; LYMPH % 14.9 % (9.0-44.0); LYMPHOCYTE # 1.7 TH/MM3 (1.0-4.8); MEAN CELL VOLUME 104.5 FL (80.0-100.0); MEAN CORPUSCULAR HEMOGLOBIN 34.8 PG (27.0-34.0); MEAN CORPUSCULAR HGB CONC 33.3 % (32.0-36.0); MONO % 9.1 % (0.0-8.0); NEUT % 72.7 % (16.0-70.0); PLATELET COUNT 114 TH/MM3 (150-450); RED BLOOD COUNT 3.56 MIL/MM3 (4.00-5.30); RED CELL DISTRIBUTION WIDTH 14.5 % (11.6-17.2); WHITE BLOOD COUNT 11.4 TH/MM3 (4.0-11.0)
[2017-08-08 06:24] LABS: BICARBONATE 21.4 MEQ/L (21.0-32.0); POTASSIUM 3.7 MEQ/L (3.5-5.1)
--- NOTE | 2017-08-08 07:29 | HHI.CCPN ---
Subjective Remarks/Hospital Course 67-year-old female. Date of admission 08/05/2017. Past medical history includes known seizure disorder on divalproex sodium and recently discontinued topiramate who presents to the [place] ED via ambulance for evaluation of altered mental status. According to the Fatuma, this patient had an episode of nonsensical speech and confusion where she was a little bit altered after eating out at a local restaurant around 2 PM. According to her she has had similar episodes like this whenever she gets a grand mal seizure. She was driven home and was given 1000 mg of divalproex sodium as he thought she might not have taken her medication today. At that point, completely became altered. EMS arrived and was brought here for evaluation. Per patient did not fell or hit her head. No history of CVA. Patient apparently is compliant with his medications. No drugs or alcohol per . Patient follows with Dr. Headley as her neurologist and was recently told to discontinue her topiramate secondary to tremors. She has not had a seizure since 2014. At this facility, patient was altered the point were Dr. Taylor/ED physician and her clinical judgment assessed she needed oral airway protection and was intubated using 40 mg etomidate and 200 mg succinylcholine. Follow-up laboratories revealed normal CBC with slight acute kidney injury. Head CT showed no acute intracranial findings. Valproic acid was 132. Topiramate level pending. Patient is currently on Diprivan at 30 mu./kg per minute in the ED and spontaneous movement involving bilateral upper and lower extremities. She is quite hypertensive. We are asked to admit. Subjective 08/06: Afebrile. No active seizing. Awake and will follow commands. Plan for MRI brain prior to extubation. Right side appears somewhat weaker. 08/07 No events overnight. Sedated with Diprivan and intubated. Afebrile. 08/08: Patient s/p extubation yesterday on 2L oxygen with good sats. Awake and alert. Objective Vital Signs Date Time Temp Pulse Resp B/P (MAP) Pulse Ox O2 Delivery O2 Flow Rate FiO2 08/08/17 06:00 81 08/08/17 04:00 99.1 23 134/61 (85) 98 08/07/17 21:21 Nasal Cannula 2.00 08/07/17 12:17 40 Intake and Output 08/08/17 08/08/17 08/09/17 08:00 16:00 00:00 Intake Total 100 ml Output Total 0 ml Balance 100 ml Result Diagram: 08/08/17 0545 08/08/17 0545 Other Results Laboratory Tests Test 08/07/17 08:16 08/07/17 13:20 08/08/17 05:45 White Blood Count 13.7 TH/MM3 11.4 TH/MM3 Red Blood Count 3.67 MIL/MM3 3.56 MIL/MM3 Hemoglobin 12.4 GM/DL 12.4 GM/DL Hematocrit 38.5 % 37.2 % Mean Corpuscular Volume 104.8 FL 104.5 FL Mean Corpuscular Hemoglobin 33.8 PG 34.8 PG Mean Corpuscular Hemoglobin Concent 32.2 % 33.3 % Red Cell Distribution Width 14.9 % 14.5 % Platelet Count 108 TH/MM3 114 TH/MM3 Mean Platelet Volume 9.0 FL 9.2 FL Neutrophils (%) (Auto) 70.6 % 72.7 % Lymphocytes (%) (Auto) 13.7 % 14.9 % Monocytes (%) (Auto) 14.6 % 9.1 % Eosinophils (%) (Auto) 0.6 % 3.0 % Basophils (%) (Auto) 0.5 % 0.3 % Neutrophils # (Auto) 9.7 TH/MM3 8.3 TH/MM3 Lymphocytes # (Auto) 1.9 TH/MM3 1.7 TH/MM3 Monocytes # (Auto) 2.0 TH/MM3 1.0 TH/MM3 Eosinophils # (Auto) 0.1 TH/MM3 0.3 TH/MM3 Basophils # (Auto) 0.1 TH/MM3 0.0 TH/MM3 CBC Comment DIFF FINAL DIFF FINAL Differential Comment Blood Urea Nitrogen 12 MG/DL 14 MG/DL Creatinine 0.84 MG/DL 0.71 MG/DL Random Glucose 133 MG/DL 94 MG/DL Calcium Level 8.9 MG/DL 8.5 MG/DL Phosphorus Level 2.4 MG/DL Magnesium Level 2.1 MG/DL 2.0 MG/DL Sodium Level 145 MEQ/L 147 MEQ/L Potassium Level 3.8 MEQ/L 3.7 MEQ/L Chloride Level 113 MEQ/L 116 MEQ/L Carbon Dioxide Level 20.8 MEQ/L 21.4 MEQ/L Anion Gap 11 MEQ/L 10 MEQ/L Estimat Glomerular Filtration Rate 67 ML/MIN 82 ML/MIN Valproic Acid (Depakene) Level 92 MCG/ML 71 MCG/ML Blood Gas Puncture Site RT RADIAL Blood Gas Patient Temperature 98.6 Blood Gas HCO3 21 mmol/L Blood Gas Base Excess -3.8 mmol/L Blood Gas Oxygen Saturation 96 % Arterial Blood pH 7.37 Arterial Blood Partial Pressure CO2 36 mmHg Arterial Blood Partial Pressure O2 121 mmHg Arterial Blood Oxygen Content 24.9 Vol % Arterial Blood Carboxyhemoglobin 1.2 % Arterial Blood Methemoglobin 1.3 % Blood Gas Hemoglobin 18.3 G/DL Oxygen Delivery Device VENTILATOR Blood Gas Ventilator Setting CPAP5/PS5 Blood Gas Inspired Oxygen 40 % Imaging Last Impressions Brain MRI 08/06/17 0600 Signed Impressions: Service Date/Time: Sunday, August 06, 2017 11:27 - CONCLUSION: 1. Examination quality is significantly degraded by motion artifact. However, no acute finding is identified. 2. Chronic changes include generalized atrophy and mild white matter changes characteristic of chronic microvascular ischemia. Bautista Mendez MD Head CT 08/05/17 1551 Signed Impressions: Service Date/Time: Saturday, August 05, 2017 15:55 - CONCLUSION: Negative noncontrast CT. Mustapha Grossman MD Chest X-Ray 08/05/17 1551 Signed Impressions: Service Date/Time: Saturday, August 05, 2017 16:08 - CONCLUSION: The study is more Midinspiratory with patchy opacity now present in both lungs with no focal consolidation. This could represent a viral pneumonitis. Mustapha Grossman MD Objective Remarks GENERAL: 67-year-old female, critically ill currently orotracheally intubated SKIN: Warm and dry. No rash. HEAD: Atraumatic. Normocephalic. EYES: Pupils equal and round around 3-4 mm bilaterally and brisk. No scleral icterus. No injection or drainage. ENT: No nasal bleeding or discharge. Mucous membranes pink and moist. Orotracheally intubated NECK: Trachea midline. No JVD. Supple. CARDIOVASCULAR: Regular rate and rhythm. 2/6 systolic murmur left lower sternal border RESPIRATORY: Few fine crackles appreciated anteriorly and posteriorly to bases. No wheezing.. Breath sounds equal bilaterally. GASTROINTESTINAL: Abdomen soft, non-tender, nondistended. Hypoactive bowel sounds are appreciated MUSCULOSKELETAL: Extremities without significant peripheral edema. No obvious deformities. Band-Aids over right third and fifth toes NEUROLOGICAL: Cranial nerves II-12 grossly intact. No facial droop. Moving all 4 extremities spontaneous however right upper and lower extremity slightly weaker than left. A/P Assessment and Plan Neuro/Psych: Seizure disorder NOS Elevated IOC On Diprivan infusion for sedation. Daily sedation vacation. Depakote level 132 in ED trending down 71 this morning Topiramate 100 mg by mouth twice a day 08/06 MRI brain: no acute finding is identified. Chronic changes include generalized atrophy and mild white matter changes characteristic of chronic microvascular ischemia. neurology is following- Dr. Jiang Seizure precautions Urine toxicology screen negative Continue bimatoprost 0.01% 1 drop each eye at night for elevated IOC CV: Hypertension Dyslipidemia On Lisinopril 20mg daily, ASA 81mg daily As needed hydralazine, labetalol and Nitropaste keep systolic blood pressure less than 170 Continue normal saline at 84 cc an hour Resp: Acute respiratory failure secondary to altered mental status/seizure Continue with oxygen keep sat >92% Albuterol/hypertrophy results every 6 hours with albuterol aerosols every 2 hours. Dyspnea Echocardiogram 2014 revealed EF 60-65%. Grade 1 diastolic dysfunction. Mild MR. PAP 39 mmHg GI: Gastroesophageal reflux disease Speech eval, diet per speech Lansoprazole for GI prophylaxis Docusate sodium/senna 1 tablet twice a day for bowel regimen : Monitor renal function, I/O's, electrolytes replacement per protocol. Endo: Hypothyroidism Continue levothyroxine 75 g daily, TSH:3.44 Sliding-scale insulin if indicated to maintain euglycemia Heme: Macrocytosis Leukocytosis Thrombocytopenia Monitor CBC daily. Follow trends ID: Continue with empiric abx( Zosyn and azithromycin)monitor for signs of infections ( Fever, WBC) Blood cultures 08/05: NGTD, check sputum cx. MSK: Arthritis Chronic low back pain PT evaluate and treat Access - Utilize peripheral IV. Prophylaxis - GI - lansoprazole - DVT - heparin/SCDs Level 3 Frankie Mark MD Aug 08, 2017 07:29
[2017-08-08] MEDS: CHLORHEXIDINE 0.12% (ORAL KIT) 15 ML CUP MT SCH ×4 (08:00→20:00)
--- NOTE | 2017-08-08 08:47 | HHI.PR ---
Review/Management Daily Summary 08/08 discussed withrn and inyensivist no seizure obtunded post extubation but starts to follow commands moves 4 limbs continue anticonvulsants and general medical care Subjective Subjective Comments extubated and starting to converse Active Medications Current Medications Medications (Trade) Dose Ordered Sig/Tiera Route Start Time Stop Time Status Last Admin (NS Flush) 2 ml UNSCH PRN IV FLUSH 08/05/17 17:45 08/05/17 21:48 (NS Flush) 2 ml BID IV FLUSH 08/05/17 21:00 08/07/17 20:47 (Prevacid Odt) 30 mg DAILY G-TUBE 08/06/17 09:00 08/07/17 08:10 (Ativan Inj) 1 mg Q1H PRN IV PUSH 08/05/17 17:45 (Tears Naturale Opth Soln) 1 drop TID EACH EYE 08/05/17 18:00 08/07/17 17:49 (Zofran Inj) 4 mg Q6H PRN IV PUSH 08/05/17 17:45 (Duoneb Neb) 1 ampule Q6HR NEB INH 08/05/17 22:00 08/08/17 03:34 (Albuterol Neb) 2.5 mg Q2HR NEB PRN INH 08/05/17 17:45 (Heparin Inj) 5,000 units Q8H SQ 08/05/17 20:00 08/08/17 05:44 Miscellaneous Information 1 Q361D XX 08/05/17 17:45 (Chlorhexidine 2% Cloth) 3 pack Taper DAILY@04 TOP 08/06/17 04:00 08/02/18 03:59 08/08/17 04:00 (Chlorhexidine 2% Cloth) 3 pack UNSCH PRN TOP 08/05/17 17:45 (Anahi-Colace) 1 tab BID PO 08/05/17 21:00 08/07/17 20:46 (Milk Of Magnesia Liq) 30 ml Q12H PRN PO 08/05/17 17:45 (Senokot) 17.2 mg Q12H PRN PO 08/05/17 17:45 (Dulcolax Supp) 10 mg DAILY PRN RECTAL 08/05/17 17:45 (Lactulose Liq) 30 ml DAILY PRN PO 08/05/17 17:45 (Peridex 0.12% Liq) 15 ml BID@08,20 MT 08/05/17 20:00 08/07/17 08:11 (Topamax) 100 mg Q12HR PO 08/05/17 21:00 08/07/17 20:46 Clevidipine 50 ml @ 2 mls/hr TITRATE PRN IV 08/05/17 18:00 (Trandate Inj) 10 mg Q1HR PRN IV PUSH 08/05/17 18:00 (Apresoline Inj) 10 mg Q1HR PRN IV PUSH 08/05/17 18:00 08/07/17 12:04 (Nitroglycerin 2% Oint) 2 inch Q6HR PRN TOPICAL 08/05/17 18:00 Piperacillin Sod/ Tazobactam Sod 100 ml @ 200 mls/hr Q6H IV 08/05/17 20:00 08/08/17 02:48 Azithromycin 500 mg/Sodium Chloride 250 ml @ 250 mls/hr Q24H IV 08/05/17 21:00 08/07/17 20:47 (Ecotrin Ec) 81 mg DAILY PO 08/06/17 09:00 08/07/17 08:10 (Synthroid) 75 mcg DAILY@0600 PO 08/06/17 06:00 08/08/17 05:44 (Xalatan 0.005% Opth Soln) 1 drop HS EACH EYE 08/05/17 21:00 (Prinivil) 20 mg DAILY PO 08/06/17 09:00 08/07/17 08:10 Valproate Sodium 500 mg/Sodium Chloride 105 ml @ 105 mls/hr Q8HR IV 08/06/17 14:00 08/08/17 05:46 (Tylenol) 500 mg Q4H PRN PO 08/06/17 18:15 (Peridex 0.12% Liq) 15 ml BID@08,20 MT 08/06/17 20:00 Allergies Allergies Coded Allergies fluconazole (Unverified Allergy, Severe, 08/05/17) hydromorphone (Unverified Allergy, Severe, 08/05/17) levetiracetam (Unverified Allergy, Severe, Anaphylaxis, 08/05/17) rifampin (Unverified Allergy, Severe, 08/05/17) phenytoin (Unverified Allergy, Mild, Rash, 08/05/17) Exam I&O / VS 08/08/17 08/08/17 08/09/17 15:00 23:00 07:00 Bladder Scan Volume Amount 466 ml Vital Signs Date Time Temp Pulse Resp B/P (MAP) Pulse Ox O2 Delivery O2 Flow Rate FiO2 08/08/17 06:00 81 08/08/17 04:00 84 08/08/17 04:00 99.1 84 23 134/61 (85) 98 08/08/17 02:00 76 08/08/17 00:00 93 08/08/17 00:00 98.9 93 22 128/60 (82) 100 08/07/17 22:00 99 08/07/17 21:21 100 Nasal Cannula 2.00 08/07/17 20:00 102 08/07/17 20:00 99.7 102 30 142/66 (91) 99 08/07/17 19:40 99 Nasal Cannula 2.00 08/07/17 18:00 106 08/07/17 16:27 100 Nasal Cannula 2.00 08/07/17 16:00 108 08/07/17 16:00 98.7 108 20 133/63 (86) 98 08/07/17 15:23 98 Nasal Cannula 2 08/07/17 14:00 109 08/07/17 12:17 100 40 08/07/17 12:00 40 08/07/17 12:00 98.4 88 22 173/78 (109) 100 08/07/17 12:00 88 08/07/17 10:00 110 08/07/17 08:50 40 08/07/17 08:50 40 Objective Micro and Labs Laboratory Tests Test 08/07/17 13:20 08/08/17 05:45 Blood Gas Puncture Site RT RADIAL Blood Gas Patient Temperature 98.6 Blood Gas HCO3 21 Blood Gas Base Excess -3.8 Blood Gas Oxygen Saturation 96 Arterial Blood pH 7.37 Arterial Blood Partial Pressure CO2 36 Arterial Blood Partial Pressure O2 121 Arterial Blood Oxygen Content 24.9 Arterial Blood Carboxyhemoglobin 1.2 Arterial Blood Methemoglobin 1.3 Blood Gas Hemoglobin 18.3 Oxygen Delivery Device VENTILATOR Blood Gas Ventilator Setting CPAP5/PS5 Blood Gas Inspired Oxygen 40 White Blood Count 11.4 Red Blood Count 3.56 Hemoglobin 12.4 Hematocrit 37.2 Mean Corpuscular Volume 104.5 Mean Corpuscular Hemoglobin 34.8 Mean Corpuscular Hemoglobin Concent 33.3 Red Cell Distribution Width 14.5 Platelet Count 114 Mean Platelet Volume 9.2 Neutrophils (%) (Auto) 72.7 Lymphocytes (%) (Auto) 14.9 Monocytes (%) (Auto) 9.1 Eosinophils (%) (Auto) 3.0 Basophils (%) (Auto) 0.3 Neutrophils # (Auto) 8.3 Lymphocytes # (Auto) 1.7 Monocytes # (Auto) 1.0 Eosinophils # (Auto) 0.3 Basophils # (Auto) 0.0 CBC Comment DIFF FINAL Differential Comment Blood Urea Nitrogen 14 Creatinine 0.71 Random Glucose 94 Calcium Level 8.5 Magnesium Level 2.0 Sodium Level 147 Potassium Level 3.7 Chloride Level 116 Carbon Dioxide Level 21.4 Anion Gap 10 Estimat Glomerular Filtration Rate 82 Valproic Acid (Depakene) Level 71 Date/Time Source Procedure Growth Status 08/05/17 16:38 Blood Peripheral Aerobic Blood Culture - Preliminary NO GROWTH IN 2 DAYS Resulted 08/05/17 16:38 Blood Peripheral Anaerobic Blood Culture - Preliminary NO GROWTH IN 2 DAYS Resulted 08/07/17 12:35 Sputum Endotracheal Gram Stain Pending Received 08/07/17 12:35 Sputum Endotracheal Sputum Culture Pending Received Mari Jiang MD Aug 08, 2017 08:47
[2017-08-08] MEDS: DOCUSATE SODIUM 50 MG/SENNA 8.6 MG TAB PO SCH ×2 (08:52→20:22)
[2017-08-08] MEDS: TOPIRAMATE 100 MG TAB PO SCH ×2 (08:52→20:22)
[2017-08-08] MEDS: LISINOPRIL 20 MG TAB PO SCH (08:52)
[2017-08-08] MEDS: ARTIFICIAL TEARS OPTH SOLN 15 ML BTL EACH EYE SCH ×3 (08:52→18:00)
[2017-08-08] MEDS: ASPIRIN EC 81 MG TABEC PO SCH (08:52)
[2017-08-08] MEDS: LANSOPRAZOLE SOLUTAB 30 MG TAB G-TUBE SCH (08:52)
[2017-08-08] MEDS: SODIUM CHLORIDE 0.9% FLUSH 10 ML FLUSH IV FLUSH SCH ×2 (08:52→20:22)
[2017-08-08] MEDS: AZITHROMYCIN INJ 500 MG in SODIUM CHLOR 0.9% 250 ML INJ 250 ML IV SCH (20:22)
[2017-08-08] MEDS: LATANOPROST 0.005% OPHT SOLN 2.5 ML BTL EACH EYE SCH (20:22)
[2017-08-09] VITALS (13 sets, daily range): BP systolic 136–173; BP diastolic 63–72; PULSE 73–98; RESP 15–21; TEMP 98.5–99; O2SAT 96–99
[2017-08-09] MEDS: PIPERACIL-TAZO 4.5 GM PREMIX 100 ML IV SCH ×4 (02:18→20:24)
[2017-08-09] MEDS: RESP: ALBUTEROL 2.5 MG/IPRATROPIUM 0.5 MG NEB (SCH) INH ×4 (03:50→21:13)
[2017-08-09] MEDS: CHLORHEXIDINE GLUCONATE 2 % 1 PACK (2 CLOTHS) TOP SCH (04:00)
[2017-08-09] MEDS: HEPARIN SODIUM - SQ 10,000 UNITS/ML VIAL SQ SCH ×3 (05:02→20:24)
[2017-08-09] MEDS: LEVOTHYROXINE SODIUM 75 MCG TAB PO SCH (05:03)
[2017-08-09] MEDS: VALPROATE INJ 500 MG in SODIUM CHLORIDE 0.9% INJ 100 ML IV SCH ×3 (05:03→22:39)
[2017-08-09 06:20] LABS: BICARBONATE 19.6 MEQ/L (21.0-32.0); MAGNESIUM 2.2 MG/DL (1.5-2.5); POTASSIUM 4.8 MEQ/L (3.5-5.1)
[2017-08-09 06:33] LABS: HEMATOCRIT 36.4 % (35.0-46.0); MEAN CELL VOLUME 105.3 FL (80.0-100.0); MEAN CORPUSCULAR HEMOGLOBIN 34.4 PG (27.0-34.0); MEAN CORPUSCULAR HGB CONC 32.7 % (32.0-36.0); PLATELET COUNT 79 TH/MM3 (150-450); RED BLOOD COUNT 3.46 MIL/MM3 (4.00-5.30); RED CELL DISTRIBUTION WIDTH 14.5 % (11.6-17.2); WHITE BLOOD COUNT 11.2 TH/MM3 (4.0-11.0)
[2017-08-09 06:35] LABS: HEMO FLAGS AUTO DIFF
[2017-08-09 07:41] LABS: EOSINOPHILS 7 % (0-4); NEUTROPHIL # MANUAL DIFF 5.7 TH/MM3 (1.8-7.7); PLATELET ESTIMATE SMEAR LOW (NORMAL); PLATELET MORPHOLOGY NORMAL (NORMAL); POLYS (SEG NEUTROPHILS) 51 % (16-70); SCAN/DIFF FINAL DIFF MANUAL; WBC DIFF SAMPLE 100
[2017-08-09] MEDS: CHLORHEXIDINE 0.12% (ORAL KIT) 15 ML CUP MT SCH ×4 (08:00→20:00)
[2017-08-09] MEDS: LISINOPRIL 20 MG TAB PO SCH (08:12)
[2017-08-09] MEDS: TOPIRAMATE 100 MG TAB PO SCH ×2 (08:12→20:24)
[2017-08-09] MEDS: DOCUSATE SODIUM 50 MG/SENNA 8.6 MG TAB PO SCH ×2 (08:12→20:24)
[2017-08-09] MEDS: ASPIRIN EC 81 MG TABEC PO SCH (08:12)
[2017-08-09] MEDS: ARTIFICIAL TEARS OPTH SOLN 15 ML BTL EACH EYE SCH ×4 (08:59→20:25)
[2017-08-09] MEDS: hydrALAZINE HCL 20 MG/ML VIAL IV PUSH PRN (09:16)
[2017-08-09] MEDS: SODIUM CHLORIDE 0.9% FLUSH 10 ML FLUSH IV FLUSH SCH ×2 (09:16→20:24)
--- NOTE | 2017-08-09 09:30 | HHI.PR ---
Review/Management Daily Summary 08/08 discussed withrn and inyensivist no seizure obtunded post extubation but starts to follow commands moves 4 limbs continue anticonvulsants and general medical care 08/09 slowly recovering neuro functions still partially oriented but following commands more promptly and moves 4 limbs when able to swallow change to po depakote 1000 bid oob with pt soon Subjective Subjective Comments No acute events reported No headache No seizures Active Medications Current Medications Medications (Trade) Dose Ordered Sig/Tiera Route Start Time Stop Time Status Last Admin (NS Flush) 2 ml UNSCH PRN IV FLUSH 08/05/17 17:45 08/05/17 21:48 (NS Flush) 2 ml BID IV FLUSH 08/05/17 21:00 08/09/17 09:16 (Prevacid Odt) 30 mg DAILY G-TUBE 08/06/17 09:00 08/08/17 08:52 (Ativan Inj) 1 mg Q1H PRN IV PUSH 08/05/17 17:45 (Tears Naturale Opth Soln) 1 drop TID EACH EYE 08/05/17 18:00 08/08/17 18:00 (Zofran Inj) 4 mg Q6H PRN IV PUSH 08/05/17 17:45 (Duoneb Neb) 1 ampule Q6HR NEB INH 08/05/17 22:00 08/09/17 03:50 (Albuterol Neb) 2.5 mg Q2HR NEB PRN INH 08/05/17 17:45 (Heparin Inj) 5,000 units Q8H SQ 08/05/17 20:00 08/09/17 05:02 Miscellaneous Information 1 Q361D XX 08/05/17 17:45 (Chlorhexidine 2% Cloth) 3 pack Taper DAILY@04 TOP 08/06/17 04:00 08/02/18 03:59 08/09/17 04:00 (Chlorhexidine 2% Cloth) 3 pack UNSCH PRN TOP 08/05/17 17:45 (Anahi-Colace) 1 tab BID PO 08/05/17 21:00 08/09/17 08:12 (Milk Of Magnesia Liq) 30 ml Q12H PRN PO 08/05/17 17:45 (Senokot) 17.2 mg Q12H PRN PO 08/05/17 17:45 (Dulcolax Supp) 10 mg DAILY PRN RECTAL 08/05/17 17:45 (Lactulose Liq) 30 ml DAILY PRN PO 08/05/17 17:45 (Peridex 0.12% Liq) 15 ml BID@08,20 MT 08/05/17 20:00 08/07/17 08:11 (Topamax) 100 mg Q12HR PO 08/05/17 21:00 08/09/17 08:12 Clevidipine 50 ml @ 2 mls/hr TITRATE PRN IV 08/05/17 18:00 (Trandate Inj) 10 mg Q1HR PRN IV PUSH 08/05/17 18:00 (Apresoline Inj) 10 mg Q1HR PRN IV PUSH 08/05/17 18:00 08/09/17 09:16 (Nitroglycerin 2% Oint) 2 inch Q6HR PRN TOPICAL 08/05/17 18:00 Piperacillin Sod/ Tazobactam Sod 100 ml @ 200 mls/hr Q6H IV 08/05/17 20:00 08/09/17 08:12 Azithromycin 500 mg/Sodium Chloride 250 ml @ 250 mls/hr Q24H IV 08/05/17 21:00 08/08/17 20:22 (Ecotrin Ec) 81 mg DAILY PO 08/06/17 09:00 08/09/17 08:12 (Synthroid) 75 mcg DAILY@0600 PO 08/06/17 06:00 08/09/17 05:03 (Xalatan 0.005% Opth Soln) 1 drop HS EACH EYE 08/05/17 21:00 (Prinivil) 20 mg DAILY PO 08/06/17 09:00 08/09/17 08:12 Valproate Sodium 500 mg/Sodium Chloride 105 ml @ 105 mls/hr Q8HR IV 08/06/17 14:00 08/09/17 05:03 (Tylenol) 500 mg Q4H PRN PO 08/06/17 18:15 (Peridex 0.12% Liq) 15 ml BID@08,20 MT 08/06/17 20:00 Allergies Allergies Coded Allergies fluconazole (Unverified Allergy, Severe, 08/05/17) hydromorphone (Unverified Allergy, Severe, 08/05/17) levetiracetam (Unverified Allergy, Severe, Anaphylaxis, 08/05/17) rifampin (Unverified Allergy, Severe, 08/05/17) phenytoin (Unverified Allergy, Mild, Rash, 08/05/17) Exam I&O / VS Vital Signs Date Time Temp Pulse Resp B/P (MAP) Pulse Ox O2 Delivery O2 Flow Rate FiO2 08/09/17 08:00 87 08/09/17 06:00 79 08/09/17 04:00 73 08/09/17 04:00 98.9 73 16 157/68 (97) 98 08/09/17 02:00 73 08/09/17 00:00 77 08/09/17 00:00 99.0 77 17 139/63 (88) 97 08/08/17 22:36 96 Nasal Cannula 1.00 08/08/17 22:00 82 08/08/17 20:00 99.5 77 17 141/64 (89) 97 08/08/17 20:00 77 08/08/17 18:00 83 08/08/17 16:00 77 08/08/17 16:00 98.7 76 19 134/62 (86) 97 08/08/17 14:00 71 08/08/17 12:00 73 08/08/17 12:00 97.7 75 14 127/58 (81) 100 08/08/17 10:00 81 Objective Micro and Labs Laboratory Tests Test 08/09/17 03:41 White Blood Count 11.2 Red Blood Count 3.46 Hemoglobin 11.9 Hematocrit 36.4 Mean Corpuscular Volume 105.3 Mean Corpuscular Hemoglobin 34.4 Mean Corpuscular Hemoglobin Concent 32.7 Red Cell Distribution Width 14.5 Platelet Count 79 Mean Platelet Volume 9.8 CBC Comment AUTO DIFF Differential Total Cells Counted 100 Neutrophils % (Manual) 51 Lymphocytes % 25 Monocytes % 17 Eosinophils % 7 Neutrophils # (Manual) 5.7 Differential Comment FINAL DIFF MANUAL Platelet Estimate LOW Platelet Morphology Comment NORMAL Hematology Comments Blood Urea Nitrogen 21 Creatinine 0.71 Random Glucose 72 Calcium Level 8.7 Phosphorus Level 2.8 Magnesium Level 2.2 Sodium Level 145 Potassium Level 4.8 Chloride Level 114 Carbon Dioxide Level 19.6 Anion Gap 11 Estimat Glomerular Filtration Rate 82 Date/Time Source Procedure Growth Status 08/05/17 16:38 Blood Peripheral Aerobic Blood Culture - Preliminary NO GROWTH IN 3 DAYS Resulted 08/05/17 16:38 Blood Peripheral Anaerobic Blood Culture - Preliminary NO GROWTH IN 3 DAYS Resulted 08/07/17 12:35 Sputum Endotracheal Gram Stain - Final Resulted 08/07/17 12:35 Sputum Endotracheal Sputum Culture - Preliminary NO GROWTH IN 24 HOURS. Resulted Mari Jiang MD Aug 09, 2017 09:30
[2017-08-09] MEDS: LANSOPRAZOLE SOLUTAB 30 MG TAB G-TUBE SCH (10:20)
--- NOTE | 2017-08-09 12:48 | HHI.CCPN ---
Subjective Remarks/Hospital Course 67-year-old female. Date of admission 08/05/2017. Past medical history includes known seizure disorder on divalproex sodium and recently discontinued topiramate who presents to the [facility] via ambulance for evaluation of altered mental status. According to the Fat[facility], this patient had an episode of nonsensical speech and confusion where she was a little bit altered after eating out at a local restaurant around 2 PM. According to her she has had similar episodes like this whenever she gets a grand mal seizure. She was driven home and was given 1000 mg of divalproex sodium as he thought she might not have taken her medication today. At that point, completely became altered. EMS arrived and was brought here for evaluation. Per patient did not fell or hit her head. No history of CVA. Patient apparently is compliant with his medications. No drugs or alcohol per . Patient follows with Dr. Headley as her neurologist and was recently told to discontinue her topiramate secondary to tremors. She has not had a seizure since 2014. At this facility, patient was altered the point were Dr. Taylor/ED physician and her clinical judgment assessed she needed oral airway protection and was intubated using 40 mg etomidate and 200 mg succinylcholine. Follow-up laboratories revealed normal CBC with slight acute kidney injury. Head CT showed no acute intracranial findings. Valproic acid was 132. Topiramate level pending. Patient is currently on Diprivan at 30 mu./kg per minute in the ED and spontaneous movement involving bilateral upper and lower extremities. She is quite hypertensive. We are asked to admit. 08/06: Afebrile. No active seizing. Awake and will follow commands. Plan for MRI brain prior to extubation. Right side appears somewhat weaker. 08/07 No events overnight. Sedated with Diprivan and intubated. Afebrile. 08/08: Patient s/p extubation yesterday on 2L oxygen with good sats. Awake and alert. Subjective 08/09: Resting comfortably in bed in no acute distress. Awake and oriented to person and place but not time/year. Week upper and lower extremities. Objective Vital Signs Date Time Temp Pulse Resp B/P (MAP) Pulse Ox O2 Delivery O2 Flow Rate FiO2 08/09/17 12:00 98.5 95 17 149/70 (96) 96 08/09/17 09:52 Nasal Cannula 1.00 08/07/17 12:17 40 Intake and Output 08/09/17 08/09/17 08/10/17 08:00 16:00 00:00 Intake Total 1362 ml Balance 1362 ml Result Diagram: 08/09/17 0341 08/09/17 0341 Other Results Microbiology Date/Time Source Procedure Growth Status 08/05/17 16:38 Blood Peripheral Aerobic Blood Culture - Preliminary NO GROWTH IN 4 DAYS Resulted 08/05/17 16:38 Blood Peripheral Anaerobic Blood Culture - Preliminary NO GROWTH IN 4 DAYS Resulted 08/07/17 12:35 Sputum Endotracheal Gram Stain - Final Complete 08/07/17 12:35 Sputum Endotracheal Sputum Culture - Final NO GROWTH IN 48 HOURS. Complete Imaging Last Impressions Brain MRI 08/06/17 0600 Signed Impressions: Service Date/Time: Sunday, August 06, 2017 11:27 - CONCLUSION: 1. Examination quality is significantly degraded by motion artifact. However, no acute finding is identified. 2. Chronic changes include generalized atrophy and mild white matter changes characteristic of chronic microvascular ischemia. Bautista Mendez MD Head CT 08/05/17 1551 Signed Impressions: Service Date/Time: Saturday, August 05, 2017 15:55 - CONCLUSION: Negative noncontrast CT. Mustapha Grossman MD Chest X-Ray 08/05/17 155 Signed Impressions: Service Date/Time: Saturday, August 05, 2017 16:08 - CONCLUSION: The study is more Midinspiratory with patchy opacity now present in both lungs with no focal consolidation. This could represent a viral pneumonitis. Mustapha Grossman MD Objective Remarks GENERAL: 67-year-old female, resting in bed in no acute distress SKIN: Warm and dry. No rash. HEAD: Atraumatic. Normocephalic. EYES: Pupils equal and round around 3-4 mm bilaterally and brisk. No scleral icterus. No injection or drainage. ENT: No nasal bleeding or discharge. Mucous membranes pink and moist. Orotracheally intubated NECK: Trachea midline. No JVD. Supple. CARDIOVASCULAR: Regular rate and rhythm. 2/6 systolic murmur left lower sternal border RESPIRATORY: Few fine crackles appreciated anteriorly and posteriorly to bases. No wheezing.. Breath sounds equal bilaterally. GASTROINTESTINAL: Abdomen soft, non-tender, nondistended. Hypoactive bowel sounds are appreciated MUSCULOSKELETAL: Extremities without significant peripheral edema. No obvious deformities. Band-Aids over right third and fifth toes NEUROLOGICAL: Cranial nerves II-12 grossly intact. No facial droop. Moving all 4 extremities spontaneous with bilateral upper and lower extremity strength around a 4-5. Normal sensation Urinary Catheter: No Assessment to: Continue Vascular Central Line Catheter: No Assessment to: Continue A/P Assessment and Plan Neuro/Psych: Seizure disorder NOS Elevated IOC On Diprivan infusion for sedation. Daily sedation vacation. Divalproex sodiumlevel 71 08/08. Recheck in a.m. 08/09 Topiramate 100 mg by mouth twice a day along with divalproex sodium 500 mg IV 3 times a day. On divalproex sodium 1 g twice a day at home 08/06 MRI brain: no acute finding is identified. Chronic changes include generalized atrophy and mild white matter changes characteristic of chronic microvascular ischemia. neurology is following- Dr. Jiang Seizure precautions Urine toxicology screen negative Continue bimatoprost 0.05% 1 drop each eye at night for elevated IOC EEG complete 08/06. Results pending. EKG check is currently looking for Lantus 27 CV: Hypertension Dyslipidemia On Lisinopril 20mg daily, ASA 81mg daily On moexipril 15 mg daily at home As needed hydralazine, labetalol and Nitropaste keep systolic blood pressure less than 170 Okay to discontinue normal saline at 84 cc an hour Resp: Acute respiratory failure secondary to altered mental status/seizure Continue with oxygen keep sat >92% Albuterol/hypertrophy results every 6 hours with albuterol aerosols every 2 hours. Dyspnea Echocardiogram 2014 revealed EF 60-65%. Grade 1 diastolic dysfunction. Mild MR. PAP 39 mmHg GI: Gastroesophageal reflux disease Advance diet as tolerated Pantoprazole for GI prophylaxis Docusate sodium/senna 1 tablet twice a day for bowel regimen : Overactive bladder Monitor renal function, I/O's, electrolytes replacement per protocol. Resume oxybutynin 15 mg daily Endo: Hypothyroidism Continue levothyroxine 75 g daily, TSH:3.44 Sliding-scale insulin if indicated to maintain euglycemia Heme: Macrocytosis Leukocytosis Thrombocytopenia Monitor CBC daily. Follow trends Check B12, folate, TSH and MMA. All peripheral smear ID: Continue with empiric abx(piperacillin/tazobactam and azithromycin)monitor for signs of infections ( Fever, WBC) Blood cultures 08/05: NGTD, check sputum cx. MSK: Arthritis Chronic low back pain PT/OT evaluate and treat Access - Utilize peripheral IV. Prophylaxis - GI -pantoprazole - DVT - heparin/SCDs Level 2 Patient is stable from a critical care medicine standpoint. We'll assign care to hospitalist in a.m. 08/10. Tonny Lomeli MD Aug 09, 2017 12:48
[2017-08-09] MEDS: LATANOPROST 0.005% OPHT SOLN 2.5 ML BTL EACH EYE SCH (20:26)
[2017-08-09] MEDS: AZITHROMYCIN INJ 500 MG in SODIUM CHLOR 0.9% 250 ML INJ 250 ML IV SCH (21:31)
[2017-08-10] VITALS (35 sets, daily range): BP systolic 150–175; BP diastolic 65–77; PULSE 67–89; RESP 16–21; TEMP 97.8–99; O2SAT 97–99
[2017-08-10] MEDS: PIPERACIL-TAZO 4.5 GM PREMIX 100 ML IV SCH ×2 (01:53→08:54)
[2017-08-10] MEDS: CHLORHEXIDINE GLUCONATE 2 % 1 PACK (2 CLOTHS) TOP SCH ×2 (03:18→21:58)
[2017-08-10] MEDS: HEPARIN SODIUM - SQ 10,000 UNITS/ML VIAL SQ SCH ×3 (03:22→19:44)
[2017-08-10] MEDS: RESP: ALBUTEROL 2.5 MG/IPRATROPIUM 0.5 MG NEB (SCH) INH ×4 (03:34→22:00)
[2017-08-10 03:56] LABS: MEAN CELL VOLUME 104.4 FL (80.0-100.0); MEAN CORPUSCULAR HEMOGLOBIN 34.3 PG (27.0-34.0); MEAN CORPUSCULAR HGB CONC 32.9 % (32.0-36.0); PLATELET COUNT 111 TH/MM3 (150-450); RED BLOOD COUNT 3.16 MIL/MM3 (4.00-5.30); RED CELL DISTRIBUTION WIDTH 13.8 % (11.6-17.2); REVIEW FLAG FINAL; WHITE BLOOD COUNT 6.3 TH/MM3 (4.0-11.0)
[2017-08-10 04:43] LABS: MAGNESIUM 2.1 MG/DL (1.5-2.5); POTASSIUM 3.4 MEQ/L (3.5-5.1)
[2017-08-10] MEDS: LEVOTHYROXINE SODIUM 75 MCG TAB PO SCH (05:02)
[2017-08-10] MEDS: VALPROATE INJ 500 MG in SODIUM CHLORIDE 0.9% INJ 100 ML IV SCH ×3 (05:02→19:52)
[2017-08-10] MEDS: CHLORHEXIDINE 0.12% (ORAL KIT) 15 ML CUP MT SCH ×4 (08:00→19:29)
[2017-08-10] MEDS: PANTOPRAZOLE SOD 20 MG DELAYED RELEASE TAB PO SCH (08:53)
[2017-08-10] MEDS: DOCUSATE SODIUM 50 MG/SENNA 8.6 MG TAB PO SCH (08:53)
[2017-08-10] MEDS: TOPIRAMATE 100 MG TAB PO SCH ×2 (08:53→19:51)
[2017-08-10] MEDS: LISINOPRIL 20 MG TAB PO SCH (08:53)
[2017-08-10] MEDS: TOLTERODINE TARTRATE 4 MG CAP LA PO SCH (08:53)
[2017-08-10] MEDS: ASPIRIN EC 81 MG TABEC PO SCH (08:53)
[2017-08-10] MEDS: SODIUM CHLORIDE 0.9% FLUSH 10 ML FLUSH IV FLUSH SCH ×2 (08:56→19:50)
--- NOTE | 2017-08-10 09:36 | HHI.PR ---
Subjective Remarks Follow-up seizure disorder 08/10/17-patient seen and examined, generalized weakness to bilateral upper extremities. Afebrile. Oriented to self and place but not date or time. Working with PT during my assessment Objective Vitals Vital Signs Date Time Temp Pulse Resp B/P (MAP) Pulse Ox O2 Delivery O2 Flow Rate FiO2 08/10/17 04:00 98.4 75 16 175/65 (101) 99 08/10/17 04:00 85 08/10/17 00:00 99.0 89 18 171/77 (108) 98 08/10/17 00:00 89 08/09/17 21:13 98 Nasal Cannula 2.00 08/09/17 20:00 98.7 85 21 150/72 (98) 99 08/09/17 20:00 85 08/09/17 18:00 98 08/09/17 16:00 98 08/09/17 16:00 98.5 93 17 136/65 (88) 98 08/09/17 14:00 90 08/09/17 12:00 98.5 95 17 149/70 (96) 96 08/09/17 12:00 95 08/09/17 10:00 95 08/09/17 09:52 97 Nasal Cannula 1.00 I/O 08/09/17 08/09/17 08/09/17 08/10/17 08/10/17 08/10/17 07:00 15:00 23:00 07:00 15:00 23:00 Intake Total 1362 ml 205 ml 950 ml 550 ml Balance 1362 ml 205 ml 950 ml 550 ml Intake Oral 240 ml 600 ml 240 ml IV Total 1122 ml 205 ml 350 ml 310 ml # Voids 1 2 3 # Bowel Movements 1 2 1 Result Diagram: 08/10/17 0345 08/10/17 0345 Imaging Last Impressions Brain MRI 08/06/17 0600 Signed Impressions: Service Date/Time: Sunday, August 06, 2017 11:27 - CONCLUSION: 1. Examination quality is significantly degraded by motion artifact. However, no acute finding is identified. 2. Chronic changes include generalized atrophy and mild white matter changes characteristic of chronic microvascular ischemia. Bautista Mendez MD Head CT 08/05/17 1551 Signed Impressions: Service Date/Time: Saturday, August 05, 2017 15:55 - CONCLUSION: Negative noncontrast CT. Mustapha Grossman MD Chest X-Ray 08/05/17 1551 Signed Impressions: Service Date/Time: Saturday, August 05, 2017 16:08 - CONCLUSION: The study is more Midinspiratory with patchy opacity now present in both lungs with no focal consolidation. This could represent a viral pneumonitis. Mustapha Grossman MD Objective Remarks GENERAL: NAD SKIN: Warm and dry. HEAD: Normocephalic. EYES: No scleral icterus. No injection or drainage. NECK: Supple, trachea midline. No JVD or lymphadenopathy. CARDIOVASCULAR: Regular rate and rhythm with II/ LAUREN RESPIRATORY: Breath sounds equal bilaterally. No accessory muscle use. GASTROINTESTINAL: Abdomen soft, non-tender, nondistended. MUSCULOSKELETAL: No cyanosis, or edema. BACK: Nontender without obvious deformity. No CVA tenderness. Procedures None A/P Problem List: (1) Acute respiratory failure ICD Code: J96.00 - Acute respiratory failure Status: Resolved (2) Hypothyroidism ICD Code: E03.9 - Hypothyroidism Status: Chronic (3) Dyslipidemia ICD Code: E78.5 - Dyslipidemia Status: Chronic (4) Aspiration into airway ICD Code: T17.998A - Aspiration into airway Status: Resolved (5) Status epilepticus ICD Code: G40.301 - Status epilepticus Status: Acute (6) Low back pain ICD Code: M54.5 - Low back pain (7) Hypertension ICD Code: I10 - Essential (primary) hypertension (8) Elevated IOP ICD Code: H40.059 - Ocular hypertension, unspecified eye (9) Gastroesophageal reflux disease ICD Code: K21.9 - Gastro-esophageal reflux disease without esophagitis (10) Overactive bladder ICD Code: N32.81 - Overactive bladder Assessment and Plan 67-year-old female with Seizure disorder NOS Elevated IOC Topiramate 100 mg by mouth twice a day along with divalproex sodium 500 mg IV 3 times a day. On divalproex sodium 1 g twice a day at home neurology is following- Dr. Jiang Seizure precautions Continue bimatoprost 0.05% 1 drop each eye at night for elevated IOC Hypertension Dyslipidemia On Lisinopril 20mg daily, ASA 81mg daily On moexipril 15 mg daily at home As needed hydralazine, labetalol Acute respiratory failure secondary to altered mental status/seizure-Resolved Continue with oxygen keep sat >92% Albuterol/hypertrophy results every 6 hours with albuterol aerosols every 2 hours. Dyspnea Echocardiogram 2014 revealed EF 60-65%. Grade 1 diastolic dysfunction. Mild MR. PAP 39 mmHg Gastroesophageal reflux disease Pantoprazole for GI prophylaxis Overactive bladder On oxybutynin 15 mg daily Hypothyroidism Continue levothyroxine 75 g daily, TSH:3.44 Macrocytosis Leukocytosis Thrombocytopenia Monitor CBC daily. Follow trends Discontinue empiric abx(piperacillin/tazobactam and azithromycin) Blood cultures and sputum cx NTD Arthritis Chronic low back pain PT/OT evaluate and treat Problem Qualifiers (1) Acute respiratory failure: Qualified Codes: J96.00 - Acute respiratory failure, unspecified whether with hypoxia or hypercapnia (2) Hypothyroidism: Qualified Codes: E03.9 - Hypothyroidism, unspecified (3) Aspiration into airway: Qualified Codes: T17.908A - Unspecified foreign body in respiratory tract, part unspecified causing other injury, initial encounter (4) Low back pain: Qualified Codes: M54.5 - Low back pain; G89.29 - Other chronic pain (5) Hypertension: Qualified Codes: I10 - Essential (primary) hypertension (6) Elevated IOP: Qualified Codes: H40.053 - Ocular hypertension, bilateral (7) Gastroesophageal reflux disease: Qualified Codes: K21.9 - Gastro-esophageal reflux disease without esophagitis Kashif Muller MD Aug 10, 2017 09:36
[2017-08-10] MEDS: ARTIFICIAL TEARS OPTH SOLN 15 ML BTL EACH EYE SCH ×2 (13:00→18:00)
[2017-08-10] MEDS: LABETALOL HCL 100 MG/20 ML VIAL IV PUSH PRN (18:53)
[2017-08-10] MEDS: LATANOPROST 0.005% OPHT SOLN 2.5 ML BTL EACH EYE SCH (19:45)
[2017-08-11] VITALS (17 sets, daily range): BP systolic 146–198; BP diastolic 68–89; PULSE 58–71; RESP 12–23; TEMP 98–98.3; O2SAT 85–99
[2017-08-11] MEDS: LABETALOL HCL 100 MG/20 ML VIAL IV PUSH PRN ×2 (01:06→21:06)
[2017-08-11] MEDS: RESP: ALBUTEROL 2.5 MG/IPRATROPIUM 0.5 MG NEB (SCH) INH ×4 (03:15→20:55)
[2017-08-11] MEDS: HEPARIN SODIUM - SQ 10,000 UNITS/ML VIAL SQ SCH ×3 (04:34→21:06)
[2017-08-11] MEDS: VALPROATE INJ 500 MG in SODIUM CHLORIDE 0.9% INJ 100 ML IV SCH ×3 (04:35→21:09)
[2017-08-11] MEDS: LEVOTHYROXINE SODIUM 75 MCG TAB PO SCH (04:35)
[2017-08-11] MEDS: CHLORHEXIDINE 0.12% (ORAL KIT) 15 ML CUP MT SCH ×3 (06:33→20:00)
--- NOTE | 2017-08-11 08:40 | HHI.PR ---
Review/Management Daily Summary 08/08 discussed withrn and inyensivist no seizure obtunded post extubation but starts to follow commands moves 4 limbs continue anticonvulsants and general medical care 08/09 slowly recovering neuro functions still partially oriented but following commands more promptly and moves 4 limbs when able to swallow change to po depakote 1000 bid oob with pt soon 08/11 no seizures but slow to recover functions overall urinating on herself and seems to not care at all oriented to place and date moves 4 limbs with gen weakness will assk for f/u mri brain, keep meds as is has pt but declines to participate Subjective Subjective Comments no seizures Active Medications Current Medications Medications (Trade) Dose Ordered Sig/Tiera Route Start Time Stop Time Status Last Admin (NS Flush) 2 ml UNSCH PRN IV FLUSH 08/05/17 17:45 08/05/17 21:48 (NS Flush) 2 ml BID IV FLUSH 08/05/17 21:00 08/10/17 19:50 (Ativan Inj) 1 mg Q1H PRN IV PUSH 08/05/17 17:45 (Tears Naturale Opth Soln) 1 drop TID EACH EYE 08/05/17 18:00 08/09/17 20:25 (Zofran Inj) 4 mg Q6H PRN IV PUSH 08/05/17 17:45 (Albuterol Neb) 2.5 mg Q2HR NEB PRN INH 08/05/17 17:45 (Heparin Inj) 5,000 units Q8H SQ 08/05/17 20:00 08/11/17 04:34 Miscellaneous Information 1 Q361D XX 08/05/17 17:45 (Chlorhexidine 2% Cloth) Taper DAILY@04 TOP 08/06/17 04:00 08/02/18 03:59 08/10/17 21:58 (Chlorhexidine 2% Cloth) 3 pack UNSCH PRN TOP 08/05/17 17:45 (Milk Of Magnesia Liq) 30 ml Q12H PRN PO 08/05/17 17:45 (Peridex 0.12% Liq) 15 ml BID@08,20 MT 08/05/17 20:00 08/07/17 08:11 (Topamax) 100 mg Q12HR PO 08/05/17 21:00 08/10/17 19:51 Clevidipine 50 ml @ 2 mls/hr TITRATE PRN IV 08/05/17 18:00 (Trandate Inj) 10 mg Q1HR PRN IV PUSH 08/05/17 18:00 08/11/17 01:06 (Apresoline Inj) 10 mg Q1HR PRN IV PUSH 08/05/17 18:00 08/09/17 09:16 (Nitroglycerin 2% Oint) 2 inch Q6HR PRN TOPICAL 08/05/17 18:00 (Ecotrin Ec) 81 mg DAILY PO 08/06/17 09:00 08/10/17 08:53 (Synthroid) 75 mcg DAILY@0600 PO 08/06/17 06:00 08/11/17 04:35 (Xalatan 0.005% Opth Soln) 1 drop HS EACH EYE 08/05/17 21:00 (Prinivil) 20 mg DAILY PO 08/06/17 09:00 08/10/17 08:53 Valproate Sodium 500 mg/Sodium Chloride 105 ml @ 105 mls/hr Q8HR IV 08/06/17 14:00 08/11/17 04:35 (Tylenol) 500 mg Q4H PRN PO 08/06/17 18:15 (Peridex 0.12% Liq) 15 ml BID@08,20 MT 08/06/17 20:00 (Duoneb Neb) 1 ampule Q6HR NEB INH 08/09/17 16:00 08/10/17 15:35 (Detrol La) 4 mg DAILY PO 08/10/17 09:00 08/10/17 08:53 (Protonix) 20 mg DAILY PO 08/10/17 09:00 08/10/17 08:53 Allergies Allergies Coded Allergies fluconazole (Unverified Allergy, Severe, 08/05/17) hydromorphone (Unverified Allergy, Severe, 08/05/17) levetiracetam (Unverified Allergy, Severe, Anaphylaxis, 08/05/17) rifampin (Unverified Allergy, Severe, 08/05/17) phenytoin (Unverified Allergy, Mild, Rash, 08/05/17) Exam I&O / VS Vital Signs Date Time Temp Pulse Resp B/P (MAP) Pulse Ox O2 Delivery O2 Flow Rate FiO2 08/11/17 06:00 60 08/11/17 04:00 98.0 58 18 146/68 (94) 94 08/11/17 04:00 58 08/11/17 02:00 63 08/11/17 00:00 66 08/11/17 00:00 98.1 66 12 198/89 (125) 96 08/10/17 20:36 98 21 08/10/17 20:00 76 08/10/17 20:00 97.8 76 21 150/67 (94) 97 08/10/17 18:00 72 20 97 08/10/17 18:00 72 08/10/17 16:59 68 08/10/17 16:57 68 08/10/17 16:45 68 08/10/17 16:30 67 08/10/17 16:19 67 08/10/17 16:17 71 08/10/17 16:14 80 08/10/17 16:13 81 08/10/17 16:00 79 08/10/17 14:15 81 08/10/17 14:00 80 08/10/17 13:45 78 08/10/17 13:30 79 08/10/17 13:15 80 08/10/17 13:00 85 08/10/17 12:45 82 08/10/17 12:30 79 08/10/17 12:15 78 08/10/17 12:00 78 08/10/17 12:00 78 19 163/75 (104) 99 08/10/17 11:45 79 08/10/17 11:30 80 08/10/17 11:15 79 08/10/17 11:00 75 08/10/17 10:45 78 08/10/17 10:30 78 08/10/17 10:15 78 08/10/17 10:00 76 08/10/17 09:45 71 08/10/17 09:35 97 21 Objective Micro and Labs Laboratory Tests Test 08/10/17 10:48 Date/Time Source Procedure Growth Status 08/05/17 16:38 Blood Peripheral Aerobic Blood Culture - Final NO GROWTH IN 5 DAYS Complete 08/05/17 16:38 Blood Peripheral Anaerobic Blood Culture - Final NO GROWTH IN 5 DAYS Complete 08/07/17 12:35 Sputum Endotracheal Gram Stain - Final Complete 08/07/17 12:35 Sputum Endotracheal Sputum Culture - Final NO GROWTH IN 48 HOURS. Complete Mari Jiang MD Aug 11, 2017 08:40
[2017-08-11] MEDS: ASPIRIN EC 81 MG TABEC PO SCH (08:57)
[2017-08-11] MEDS: PANTOPRAZOLE SOD 20 MG DELAYED RELEASE TAB PO SCH (08:57)
[2017-08-11] MEDS: TOLTERODINE TARTRATE 4 MG CAP LA PO SCH (08:57)
[2017-08-11] MEDS: SODIUM CHLORIDE 0.9% FLUSH 10 ML FLUSH IV FLUSH SCH ×2 (08:57→21:06)
[2017-08-11] MEDS: TOPIRAMATE 100 MG TAB PO SCH ×2 (08:57→21:06)
[2017-08-11] MEDS: LISINOPRIL 20 MG TAB PO SCH (08:59)
[2017-08-11] MEDS: ARTIFICIAL TEARS OPTH SOLN 15 ML BTL EACH EYE SCH ×3 (09:00→18:00)
--- NOTE | 2017-08-11 09:57 | HHI.PR ---
Subjective Remarks Follow-up seizure disorder 08/10/17-patient seen and examined, generalized weakness to bilateral upper extremities. Afebrile. Oriented to self and place but not date or time. Working with PT during my assessment 08/11/17-patient seen and examined, alert and oriented 3. Getting stronger in all extremities. BP up Objective Vitals Vital Signs Date Time Temp Pulse Resp B/P (MAP) Pulse Ox O2 Delivery O2 Flow Rate FiO2 08/11/17 06:00 60 08/11/17 04:00 98.0 58 18 146/68 (94) 94 08/11/17 04:00 58 08/11/17 02:00 63 08/11/17 00:00 66 08/11/17 00:00 98.1 66 12 198/89 (125) 96 08/10/17 20:36 98 21 08/10/17 20:00 76 08/10/17 20:00 97.8 76 21 150/67 (94) 97 08/10/17 18:00 72 20 97 08/10/17 18:00 72 08/10/17 16:59 68 08/10/17 16:57 68 08/10/17 16:45 68 08/10/17 16:30 67 08/10/17 16:19 67 08/10/17 16:17 71 08/10/17 16:14 80 08/10/17 16:13 81 08/10/17 16:00 79 08/10/17 14:15 81 08/10/17 14:00 80 08/10/17 13:45 78 08/10/17 13:30 79 08/10/17 13:15 80 08/10/17 13:00 85 08/10/17 12:45 82 08/10/17 12:30 79 08/10/17 12:15 78 08/10/17 12:00 78 08/10/17 12:00 78 19 163/75 (104) 99 08/10/17 11:45 79 08/10/17 11:30 80 08/10/17 11:15 79 08/10/17 11:00 75 08/10/17 10:45 78 08/10/17 10:30 78 08/10/17 10:15 78 08/10/17 10:00 76 I/O 9/28/17 08/10/17 08/10/17 08/11/17 08/11/17 08/11/17 07:00 15:00 23:00 07:00 15:00 23:00 Intake Total 550 ml 100 ml 740 ml 210 ml Output Total 900 ml Balance 550 ml 100 ml -160 ml 210 ml Intake Oral 240 ml 740 ml IV Total 310 ml 100 ml 210 ml Output Urine Total 900 ml # Voids 3 4 4 # Bowel Movements 1 1 0 Result Diagram: 08/10/1734408/10/17344 Objective Remarks GENERAL: NAD SKIN: Warm and dry. HEAD: Normocephalic. EYES: No scleral icterus. No injection or drainage. NECK: Supple, trachea midline. No JVD or lymphadenopathy. CARDIOVASCULAR: Regular rate and rhythm with II/ LAUREN RESPIRATORY: Breath sounds equal bilaterally. No accessory muscle use. GASTROINTESTINAL: Abdomen soft, non-tender, nondistended. MUSCULOSKELETAL: No cyanosis, or edema. BACK: Nontender without obvious deformity. No CVA tenderness. Procedures None A/P Problem List: (1) Acute respiratory failure ICD Code: J96.00 - Acute respiratory failure Status: Resolved (2) Hypothyroidism ICD Code: E03.9 - Hypothyroidism Status: Chronic (3) Dyslipidemia ICD Code: E78.5 - Dyslipidemia Status: Chronic (4) Aspiration into airway ICD Code: T17.998A - Aspiration into airway Status: Resolved (5) Status epilepticus ICD Code: G40.301 - Status epilepticus Status: Acute (6) Low back pain ICD Code: M54.5 - Low back pain (7) Hypertension ICD Code: I10 - Essential (primary) hypertension (8) Elevated IOP ICD Code: H40.059 - Ocular hypertension, unspecified eye (9) Gastroesophageal reflux disease ICD Code: K21.9 - Gastro-esophageal reflux disease without esophagitis (10) Overactive bladder ICD Code: N32.81 - Overactive bladder Assessment and Plan 67-year-old female with Seizure disorder NOS Elevated IOC Topiramate 100 mg by mouth twice a day along with divalproex sodium 500 mg IV 3 times a day. On divalproex sodium 1 g twice a day at home neurology is following- Dr. Jiang Seizure precautions Continue bimatoprost 0.05% 1 drop each eye at night for elevated IOC Will need follow-up brain MRI Hypertension-labile Dyslipidemia On Lisinopril 20mg daily, ASA 81mg daily Start Norvasc 5 mg daily 08/11/17 On moexipril 15 mg daily at home As needed hydralazine, labetalol Acute respiratory failure secondary to altered mental status/seizure-Resolved Continue with oxygen keep sat >92% Albuterol/hypertrophy results every 6 hours with albuterol aerosols every 2 hours. Dyspnea Echocardiogram 2014 revealed EF 60-65%. Grade 1 diastolic dysfunction. Gastroesophageal reflux disease Pantoprazole for GI prophylaxis Overactive bladder On oxybutynin 15 mg daily Hypothyroidism Continue levothyroxine 75 g daily, TSH:3.44 Macrocytosis Leukocytosis Thrombocytopenia Monitor CBC daily. Follow trends Discontinue empiric abx(piperacillin/tazobactam and azithromycin) Blood cultures and sputum cx NTD Arthritis Chronic low back pain PT/OT evaluate and treat Problem Qualifiers (1) Acute respiratory failure: Qualified Codes: J96.00 - Acute respiratory failure, unspecified whether with hypoxia or hypercapnia (2) Hypothyroidism: Qualified Codes: E03.9 - Hypothyroidism, unspecified (3) Aspiration into airway: Qualified Codes: T17.908A - Unspecified foreign body in respiratory tract, part unspecified causing other injury, initial encounter (4) Low back pain: Qualified Codes: M54.5 - Low back pain; G89.29 - Other chronic pain (5) Hypertension: Qualified Codes: I10 - Essential (primary) hypertension (6) Elevated IOP: Qualified Codes: H40.053 - Ocular hypertension, bilateral (7) Gastroesophageal reflux disease: Qualified Codes: K21.9 - Gastro-esophageal reflux disease without esophagitis Kashif Muller MD Aug 11, 2017 09:57
[2017-08-11] MEDS: amLODIPine BESYLATE 5 MG TAB PO SCH (12:55)
[2017-08-11] MEDS: LATANOPROST 0.005% OPHT SOLN 2.5 ML BTL EACH EYE SCH (20:25)
[2017-08-11] MEDS: hydrALAZINE HCL 20 MG/ML VIAL IV PUSH PRN (22:11)
[2017-08-11] MEDS ORDERED: cloNIDine HCL 0.1 MG TAB PO PRN (22:45)
[2017-08-12] VITALS (7 sets, daily range): BP systolic 146–180; BP diastolic 65–98; PULSE 63–82; RESP 16–20; TEMP 97.2–98.5; O2SAT 94–97
[2017-08-12] MEDS: CHLORHEXIDINE GLUCONATE 2 % 1 PACK (2 CLOTHS) TOP SCH (04:00)
[2017-08-12] MEDS: RESP: ALBUTEROL 2.5 MG/IPRATROPIUM 0.5 MG NEB (SCH) INH ×4 (04:25→21:02)
[2017-08-12] MEDS: HEPARIN SODIUM - SQ 10,000 UNITS/ML VIAL SQ SCH ×3 (05:07→20:33)
[2017-08-12] MEDS: LEVOTHYROXINE SODIUM 75 MCG TAB PO SCH (06:21)
[2017-08-12] MEDS: VALPROATE INJ 500 MG in SODIUM CHLORIDE 0.9% INJ 100 ML IV SCH ×3 (06:22→23:02)
[2017-08-12] MEDS: CHLORHEXIDINE 0.12% (ORAL KIT) 15 ML CUP MT SCH (08:00)
--- NOTE | 2017-08-12 10:26 | HHI.PR ---
Subjective Remarks Follow-up seizure disorder 08/10/17-patient seen and examined, generalized weakness to bilateral upper extremities. Afebrile. Oriented to self and place but not date or time. Working with PT during my assessment 08/11/17-patient seen and examined, alert and oriented 3. Getting stronger in all extremities. BP up 08/12/17-patient seen and examined, she is much more alert and oriented 3. Denies any acute event overnight. No seizure episodes Objective Vitals Vital Signs Date Time Temp Pulse Resp B/P (MAP) Pulse Ox O2 Delivery O2 Flow Rate FiO2 08/12/17 08:00 98.5 75 18 174/74 (107) 94 180/98 (125) 08/12/17 04:00 97.2 63 18 155/70 (98) 95 08/12/17 00:00 97.4 69 20 157/70 (99) 97 08/11/17 22:34 154/71 (98) 08/11/17 22:00 67 08/11/17 20:57 99 21 08/11/17 20:01 68 20 183/78 (113) 97 08/11/17 20:00 98.3 69 23 93 08/11/17 20:00 70 21 97 08/11/17 20:00 67 08/11/17 19:01 69 20 172/77 (108) 85 08/11/17 19:00 68 21 97 08/11/17 18:00 67 08/11/17 16:00 69 08/11/17 16:00 98.0 69 23 168/75 (106) 93 08/11/17 14:00 69 08/11/17 12:00 98.1 71 21 179/76 (110) 98 08/11/17 12:00 71 I/O 08/11/17 08/11/17 08/11/17 08/12/17 08/12/17 08/12/17 07:00 15:00 23:00 07:00 15:00 23:00 Intake Total 210 ml 700 ml Output Total 850 ml Balance 210 ml -150 ml Intake Oral 550 ml IV Total 210 ml 150 ml Output Urine Total 850 ml # Voids 4 5 5 # Bowel Movements 0 2 Result Diagram: 08/10/17 0345 08/10/17344 Imaging Last Impressions Brain MRI 08/06/17 0600 Signed Impressions: Service Date/Time: Sunday, August 06, 2017 11:27 - CONCLUSION: 1. Examination quality is significantly degraded by motion artifact. However, no acute finding is identified. 2. Chronic changes include generalized atrophy and mild white matter changes characteristic of chronic microvascular ischemia. Bautista Mendez MD Head CT 08/05/17 1551 Signed Impressions: Service Date/Time: Saturday, August 05, 2017 15:55 - CONCLUSION: Negative noncontrast CT. Mustapha Grossman MD Chest X-Ray 08/05/17 1551 Signed Impressions: Service Date/Time: Saturday, August 05, 2017 16:08 - CONCLUSION: The study is more Midinspiratory with patchy opacity now present in both lungs with no focal consolidation. This could represent a viral pneumonitis. Mustapha Grossman MD Objective Remarks GENERAL: NAD SKIN: Warm and dry. HEAD: Normocephalic. EYES: No scleral icterus. No injection or drainage. NECK: Supple, trachea midline. No JVD or lymphadenopathy. CARDIOVASCULAR: Regular rate and rhythm with II/ LAUREN RESPIRATORY: Breath sounds equal bilaterally. No accessory muscle use. GASTROINTESTINAL: Abdomen soft, non-tender, nondistended. MUSCULOSKELETAL: No cyanosis, or edema. BACK: Nontender without obvious deformity. No CVA tenderness. Procedures None A/P Problem List: (1) Acute respiratory failure ICD Code: J96.00 - Acute respiratory failure Status: Resolved (2) Hypothyroidism ICD Code: E03.9 - Hypothyroidism Status: Chronic (3) Dyslipidemia ICD Code: E78.5 - Dyslipidemia Status: Chronic (4) Aspiration into airway ICD Code: T17.998A - Aspiration into airway Status: Resolved (5) Status epilepticus ICD Code: G40.301 - Status epilepticus Status: Acute (6) Low back pain ICD Code: M54.5 - Low back pain (7) Hypertension ICD Code: I10 - Essential (primary) hypertension (8) Elevated IOP ICD Code: H40.059 - Ocular hypertension, unspecified eye (9) Gastroesophageal reflux disease ICD Code: K21.9 - Gastro-esophageal reflux disease without esophagitis (10) Overactive bladder ICD Code: N32.81 - Overactive bladder Assessment and Plan 67-year-old female with Seizure disorder NOS Status epilepticus Elevated IOC Topiramate 100 mg by mouth twice a day along with divalproex sodium 500 mg IV 3 times a day. On divalproex sodium 1 g twice a day at home neurology is following- Dr. Jiang Seizure precautions Continue bimatoprost 0.05% 1 drop each eye at night for elevated IOC Will need follow-up brain MRI Hypertension-labile Dyslipidemia On Lisinopril 20mg daily, ASA 81mg daily Continue Norvasc 5 mg daily 08/11/17 On moexipril 15 mg daily at home As needed hydralazine, labetalol Acute respiratory failure secondary to altered mental status/seizure-Resolved Continue with oxygen keep sat >92% Albuterol/hypertrophy results every 6 hours with albuterol aerosols every 2 hours. Echocardiogram 2014 revealed EF 60-65%. Grade 1 diastolic dysfunction. Gastroesophageal reflux disease Pantoprazole for GI prophylaxis Overactive bladder On oxybutynin 15 mg daily Hypothyroidism Continue levothyroxine 75 g daily, TSH:3.44 Macrocytosis Leukocytosis-Resolved Thrombocytopenia Monitor CBC daily. s/p empiric abx(piperacillin/tazobactam and azithromycin) Blood cultures and sputum cx NTD Arthritis Chronic low back pain PT/OT evaluate and treat Problem Qualifiers (1) Acute respiratory failure: Qualified Codes: J96.00 - Acute respiratory failure, unspecified whether with hypoxia or hypercapnia (2) Hypothyroidism: Qualified Codes: E03.9 - Hypothyroidism, unspecified (3) Aspiration into airway: Qualified Codes: T17.908A - Unspecified foreign body in respiratory tract, part unspecified causing other injury, initial encounter (4) Low back pain: Qualified Codes: M54.5 - Low back pain; G89.29 - Other chronic pain (5) Hypertension: Qualified Codes: I10 - Essential (primary) hypertension (6) Elevated IOP: Qualified Codes: H40.053 - Ocular hypertension, bilateral (7) Gastroesophageal reflux disease: Qualified Codes: K21.9 - Gastro-esophageal reflux disease without esophagitis Kashif Muller MD Aug 12, 2017 10:26
[2017-08-12] MEDS: ASPIRIN EC 81 MG TABEC PO SCH (10:32)
[2017-08-12] MEDS: ARTIFICIAL TEARS OPTH SOLN 15 ML BTL EACH EYE SCH ×3 (10:32→18:00)
[2017-08-12] MEDS: TOLTERODINE TARTRATE 4 MG CAP LA PO SCH (10:33)
[2017-08-12] MEDS: TOPIRAMATE 100 MG TAB PO SCH ×2 (10:33→20:32)
[2017-08-12] MEDS: PANTOPRAZOLE SOD 20 MG DELAYED RELEASE TAB PO SCH (10:34)
[2017-08-12] MEDS: LISINOPRIL 20 MG TAB PO SCH (10:34)
[2017-08-12] MEDS: amLODIPine BESYLATE 5 MG TAB PO SCH (10:34)
[2017-08-12] MEDS: SODIUM CHLORIDE 0.9% FLUSH 10 ML FLUSH IV FLUSH SCH ×2 (10:34→20:33)
--- NOTE | 2017-08-12 12:30 | RADRPT ---
EXAM DATE/TIME: 08/12/2017 12:04 [facility] COMPARISON: MRI BRAIN W/O CONTRAST, August 06, 2017, 11:27. INDICATIONS : Seizures. MEDICAL HISTORY : Hypertension. Hypothyroidism. Gastroesophageal reflux disease. SURGICAL HISTORY : Hysterectomy. Total knee replacement, left. Total knee replacement, right. Wells rods, csection. ENCOUNTER: Subsequent ACUITY: 1 week PAIN SCORE: 0/10 LOCATION: cranial TECHNIQUE: Multiplanar, multisequence MRI of the brain was performed without contrast. FINDINGS: CEREBRUM: Mild diffuse cerebral atrophy. The ventricles are normal for age. No evidence of midline shift, mass lesion, hemorrhage or acute infarction. No extraaxial fluid collections are seen. The pituitary gl and and suprasellar cistern are normal in configuration. WHITE MATTER: Minimal periventricular and deep white matter focal T2 prolongation consistent ischemic white matter demyelination. POSTERIOR FOSSA: The cerebellum and brainstem are intact. The 4th ventricle is midline. The cerebellopontine angle is unremarkable. The cerebellar tonsils are normal in position. DIFFUSION IMAGING: No focal areas of restricted diffusion are seen. No evidence of acute infarction. EXTRACRANIAL: The visualized portions of the orbits and paranasal sinuses are unremarkable. CONCLUSION: 1. Senescent changes and minimal periventricular small vessel ischemic white matter demyelination. 2. Otherwise, unremarkable MRI examination of the brain. Adin Sanchez MD on August 12, 2017 at 12:26 Board Certified Radiologist. This report was verified electronically.
[2017-08-12] MEDS: LATANOPROST 0.005% OPHT SOLN 2.5 ML BTL EACH EYE SCH (21:00)
[2017-08-13 00:06] VITALS: BP 141/67; PULSE 82; RESP 18; TEMP 98.2; O2SAT 95
[2017-08-13] MEDS: ACETAMINOPHEN 500 MG CPLT PO PRN (03:16)
[2017-08-13] MEDS: RESP: ALBUTEROL 2.5 MG/IPRATROPIUM 0.5 MG NEB (SCH) INH ×4 (04:00→21:01)
[2017-08-13] MEDS: CHLORHEXIDINE GLUCONATE 2 % 1 PACK (2 CLOTHS) TOP SCH (04:00)
[2017-08-13 05:00] VITALS: BP 156/77; PULSE 75; RESP 18; TEMP 97.8; O2SAT 97
[2017-08-13] MEDS: VALPROATE INJ 500 MG in SODIUM CHLORIDE 0.9% INJ 100 ML IV SCH ×3 (05:08→21:24)
[2017-08-13] MEDS: HEPARIN SODIUM - SQ 10,000 UNITS/ML VIAL SQ SCH ×3 (05:11→21:23)
[2017-08-13] MEDS: LEVOTHYROXINE SODIUM 75 MCG TAB PO SCH (05:11)
[2017-08-13] MEDS: CHLORHEXIDINE 0.12% (ORAL KIT) 15 ML CUP MT SCH ×2 (08:00→20:00)
[2017-08-13 08:45] VITALS: BP 143/63; PULSE 63; RESP 18; TEMP 98.1; O2SAT 99
[2017-08-13] MEDS: ARTIFICIAL TEARS OPTH SOLN 15 ML BTL EACH EYE SCH ×3 (08:47→18:00)
[2017-08-13] MEDS: TOPIRAMATE 100 MG TAB PO SCH ×2 (08:49→21:24)
[2017-08-13] MEDS: amLODIPine BESYLATE 5 MG TAB PO SCH (08:50)
[2017-08-13] MEDS: PANTOPRAZOLE SOD 20 MG DELAYED RELEASE TAB PO SCH (08:50)
[2017-08-13] MEDS: ASPIRIN EC 81 MG TABEC PO SCH (08:50)
[2017-08-13] MEDS: LISINOPRIL 20 MG TAB PO SCH (08:50)
[2017-08-13] MEDS: TOLTERODINE TARTRATE 4 MG CAP LA PO SCH (08:51)
[2017-08-13] MEDS: SODIUM CHLORIDE 0.9% FLUSH 10 ML FLUSH IV FLUSH SCH ×2 (08:51→21:24)
--- NOTE | 2017-08-13 09:56 | HHI.PR ---
Review/Management Diagnosis sz--stable on vpa and topamax. Diagnosis/Plan: Daily Summary 08/08 discussed withrn and inyensivist no seizure obtunded post extubation but starts to follow commands moves 4 limbs continue anticonvulsants and general medical care 08/09 slowly recovering neuro functions still partially oriented but following commands more promptly and moves 4 limbs when able to swallow change to po depakote 1000 bid oob with pt soon 08/11 no seizures but slow to recover functions overall urinating on herself and seems to not care at all oriented to place and date moves 4 limbs with gen weakness will assk for f/u mri brain, keep meds as is has pt but declines to participate Subjective Subjective Comments No acute events reported No headache No seizures Active Medications Current Medications Medications (Trade) Dose Ordered Sig/Tiera Route Start Time Stop Time Status Last Admin (NS Flush) 2 ml UNSCH PRN IV FLUSH 08/05/17 17:45 08/05/17 21:48 (NS Flush) 2 ml BID IV FLUSH 08/05/17 21:00 08/13/17 08:51 (Ativan Inj) 1 mg Q1H PRN IV PUSH 08/05/17 17:45 (Tears Naturale Opth Soln) 1 drop TID EACH EYE 08/05/17 18:00 08/13/17 08:47 (Zofran Inj) 4 mg Q6H PRN IV PUSH 08/05/17 17:45 (Albuterol Neb) 2.5 mg Q2HR NEB PRN INH 08/05/17 17:45 (Heparin Inj) 5,000 units Q8H SQ 08/05/17 20:00 08/13/17 05:11 Miscellaneous Information 1 Q361D XX 08/05/17 17:45 (Chlorhexidine 2% Cloth) Taper DAILY@04 TOP 08/06/17 04:00 08/02/18 03:59 08/12/17 04:00 (Chlorhexidine 2% Cloth) 3 pack UNSCH PRN TOP 08/05/17 17:45 (Milk Of Magnesia Liq) 30 ml Q12H PRN PO 08/05/17 17:45 (Topamax) 100 mg Q12HR PO 08/05/17 21:00 08/13/17 08:49 Clevidipine 50 ml @ 2 mls/hr TITRATE PRN IV 08/05/17 18:00 (Nitroglycerin 2% Oint) 2 inch Q6HR PRN TOPICAL 08/05/17 18:00 (Ecotrin Ec) 81 mg DAILY PO 08/06/17 09:00 08/13/17 08:50 (Synthroid) 75 mcg DAILY@0600 PO 08/06/17 06:00 08/13/17 05:11 (Xalatan 0.005% Opth Soln) 1 drop HS EACH EYE 08/05/17 21:00 (Prinivil) 20 mg DAILY PO 08/06/17 09:00 08/13/17 08:50 Valproate Sodium 500 mg/Sodium Chloride 105 ml @ 105 mls/hr Q8HR IV 08/06/17 14:00 08/13/17 05:08 (Tylenol) 500 mg Q4H PRN PO 08/06/17 18:15 08/13/17 03:16 (Peridex 0.12% Liq) 15 ml BID@08,20 MT 08/06/17 20:00 08/11/17 20:00 (Duoneb Neb) 1 ampule Q6HR NEB INH 08/09/17 16:00 08/12/17 10:56 (Detrol La) 4 mg DAILY PO 08/10/17 09:00 08/13/17 08:51 (Protonix) 20 mg DAILY PO 08/10/17 09:00 08/13/17 08:50 (Norvasc) 5 mg DAILY PO 08/11/17 11:00 08/13/17 08:50 (Catapres) 0.1 mg Q6H PRN PO 08/11/17 22:45 Allergies Allergies Coded Allergies fluconazole (Unverified Allergy, Severe, 08/05/17) hydromorphone (Unverified Allergy, Severe, 08/05/17) levetiracetam (Unverified Allergy, Severe, Anaphylaxis, 08/05/17) rifampin (Unverified Allergy, Severe, 08/05/17) phenytoin (Unverified Allergy, Mild, Rash, 08/05/17) Exam I&O / VS 08/13/17 08/13/17 08/14/17 15:00 23:00 07:00 # Voids 1 # Bowel Movements 1 Vital Signs Date Time Temp Pulse Resp B/P (MAP) Pulse Ox O2 Delivery O2 Flow Rate FiO2 08/13/17 08:45 98.1 63 18 143/63 (89) 99 08/13/17 05:00 97.8 75 18 156/77 (103) 97 08/13/17 00:06 98.2 82 18 141/67 (91) 95 08/12/17 20:00 98.3 82 18 146/65 (92) 95 08/12/17 16:00 97.6 75 18 147/70 (95) 95 08/12/17 12:00 97.5 78 16 154/68 (96) 94 08/12/17 10:54 97 21 Exam Comments alert, oriented, follows commands, speech is fluent CN 2-12 normal MOTOR 5/5 BUE Objective Radiology Results MRI brain---normal for age Micro and Labs Date/Time Source Procedure Growth Status 08/05/17 16:38 Blood Peripheral Aerobic Blood Culture - Final NO GROWTH IN 5 DAYS Complete 08/05/17 16:38 Blood Peripheral Anaerobic Blood Culture - Final NO GROWTH IN 5 DAYS Complete 08/07/17 12:35 Sputum Endotracheal Gram Stain - Final Complete 08/07/17 12:35 Sputum Endotracheal Sputum Culture - Final NO GROWTH IN 48 HOURS. Complete Loy Headley PhD Aug 13, 2017 09:56
--- NOTE | 2017-08-13 11:19 | HHI.PR ---
Subjective Remarks Follow-up seizure disorder 08/10/17-patient seen and examined, generalized weakness to bilateral upper extremities. Afebrile. Oriented to self and place but not date or time. Working with PT during my assessment 08/11/17-patient seen and examined, alert and oriented 3. Getting stronger in all extremities. BP up 08/12/17-patient seen and examined, she is much more alert and oriented 3. Denies any acute event overnight. No seizure episodes 08/13/17-patient seen and examined, stable and no seizure activity. States she' s getting stronger. Only complains of buttocks soreness second 2 blisters Objective Vitals Vital Signs Date Time Temp Pulse Resp B/P (MAP) Pulse Ox O2 Delivery O2 Flow Rate FiO2 08/13/17 10:22 21 08/13/17 08:45 98.1 63 18 143/63 (89) 99 08/13/17 05:00 97.8 75 18 156/77 (103) 97 08/13/17 00:06 98.2 82 18 141/67 (91) 95 08/12/17 20:00 98.3 82 18 146/65 (92) 95 08/12/17 16:00 97.6 75 18 147/70 (95) 95 08/12/17 12:00 97.5 78 16 154/68 (96) 94 I/O 08/12/17 08/12/17 08/12/17 08/13/17 08/13/17 08/13/17 07:00 15:00 23:00 07:00 15:00 23:00 Intake Total 1065 ml Balance 1065 ml Intake Oral 960 ml IV Total 105 ml # Voids 5 3 6 1 # Bowel Movements 1 3 1 Result Diagram: 08/10/17 0345 08/10/17 0345 Objective Remarks GENERAL: NAD SKIN: Warm and dry. HEAD: Normocephalic. EYES: No scleral icterus. No injection or drainage. NECK: Supple, trachea midline. No JVD or lymphadenopathy. CARDIOVASCULAR: Regular rate and rhythm with II/ LAUREN RESPIRATORY: Breath sounds equal bilaterally. No accessory muscle use. GASTROINTESTINAL: Abdomen soft, non-tender, nondistended. MUSCULOSKELETAL: No cyanosis, or edema. BACK: Nontender without obvious deformity. No CVA tenderness. Procedures None A/P Problem List: (1) Acute respiratory failure ICD Code: J96.00 - Acute respiratory failure Status: Resolved (2) Hypothyroidism ICD Code: E03.9 - Hypothyroidism Status: Chronic (3) Dyslipidemia ICD Code: E78.5 - Dyslipidemia Status: Chronic (4) Aspiration into airway ICD Code: T17.998A - Aspiration into airway Status: Resolved (5) Status epilepticus ICD Code: G40.301 - Status epilepticus Status: Acute (6) Low back pain ICD Code: M54.5 - Low back pain (7) Hypertension ICD Code: I10 - Essential (primary) hypertension (8) Elevated IOP ICD Code: H40.059 - Ocular hypertension, unspecified eye (9) Gastroesophageal reflux disease ICD Code: K21.9 - Gastro-esophageal reflux disease without esophagitis (10) Overactive bladder ICD Code: N32.81 - Overactive bladder Assessment and Plan 67-year-old female with Seizure disorder NOS Status epilepticus Elevated IOC Topiramate 100 mg by mouth twice a day along with divalproex sodium 500 mg IV 3 times a day. On divalproex sodium 1 g twice a day at home neurology is following- Dr. Jiang Seizure precautions Continue bimatoprost 0.05% 1 drop each eye at night for elevated IOC Will need follow-up brain MRI Hypertension labile-resolved Dyslipidemia On Lisinopril 20mg daily, Norvasc 5 mg daily, ASA 81mg daily On moexipril 15 mg daily at home As needed hydralazine, labetalol Acute respiratory failure secondary to altered mental status/seizure-Resolved Continue with oxygen keep sat >92% Albuterol/hypertrophy results every 6 hours with albuterol aerosols every 2 hours. Echocardiogram 2014 revealed EF 60-65%. Grade 1 diastolic dysfunction. Gastroesophageal reflux disease Pantoprazole for GI prophylaxis Overactive bladder On oxybutynin 15 mg daily Hypothyroidism Continue levothyroxine 75 g daily, TSH:3.44 Macrocytosis Leukocytosis-Resolved Thrombocytopenia Monitor CBC daily. s/p empiric abx(piperacillin/tazobactam and azithromycin) Blood cultures and sputum cx NTD Arthritis Chronic low back pain PT/OT evaluate and treat Problem Qualifiers (1) Acute respiratory failure: Qualified Codes: J96.00 - Acute respiratory failure, unspecified whether with hypoxia or hypercapnia (2) Hypothyroidism: Qualified Codes: E03.9 - Hypothyroidism, unspecified (3) Aspiration into airway: Qualified Codes: T17.908A - Unspecified foreign body in respiratory tract, part unspecified causing other injury, initial encounter (4) Low back pain: Qualified Codes: M54.5 - Low back pain; G89.29 - Other chronic pain (5) Hypertension: Qualified Codes: I10 - Essential (primary) hypertension (6) Elevated IOP: Qualified Codes: H40.053 - Ocular hypertension, bilateral (7) Gastroesophageal reflux disease: Qualified Codes: K21.9 - Gastro-esophageal reflux disease without esophagitis Kashif Muller MD Aug 13, 2017 11:19
[2017-08-13 12:11] VITALS: BP 137/63; PULSE 75; RESP 18; TEMP 98.4; O2SAT 96
[2017-08-13 16:28] VITALS: BP 156/70; PULSE 78; RESP 18; TEMP 98.3; O2SAT 95
[2017-08-13 20:00] VITALS: BP 157/72; PULSE 72; RESP 18; TEMP 98.1; O2SAT 95
[2017-08-13] MEDS: LATANOPROST 0.005% OPHT SOLN 2.5 ML BTL EACH EYE SCH (21:00)
[2017-08-14] VITALS: BP 135/64; PULSE 69; RESP 18; TEMP 97.9; O2SAT 95
[2017-08-14] MEDS: CHLORHEXIDINE GLUCONATE 2 % 1 PACK (2 CLOTHS) TOP SCH (04:00)
[2017-08-14] MEDS: LEVOTHYROXINE SODIUM 75 MCG TAB PO SCH (05:43)
[2017-08-14] MEDS: HEPARIN SODIUM - SQ 10,000 UNITS/ML VIAL SQ SCH ×3 (05:44→22:25)
[2017-08-14] MEDS: VALPROATE INJ 500 MG in SODIUM CHLORIDE 0.9% INJ 100 ML IV SCH ×3 (05:44→22:27)
[2017-08-14 06:00] VITALS: BP 145/67; PULSE 63; RESP 18; TEMP 97.4; O2SAT 97
[2017-08-14] MEDS: CHLORHEXIDINE 0.12% (ORAL KIT) 15 ML CUP MT SCH ×2 (08:00→20:00)
[2017-08-14] MEDS: ARTIFICIAL TEARS OPTH SOLN 15 ML BTL EACH EYE SCH ×3 (08:31→17:12)
[2017-08-14] MEDS: amLODIPine BESYLATE 5 MG TAB PO SCH (08:31)
[2017-08-14] MEDS: SODIUM CHLORIDE 0.9% FLUSH 10 ML FLUSH IV FLUSH SCH ×2 (08:31→22:26)
[2017-08-14] MEDS: TOLTERODINE TARTRATE 4 MG CAP LA PO SCH (08:31)
[2017-08-14] MEDS: LISINOPRIL 20 MG TAB PO SCH (08:31)
[2017-08-14] MEDS: PANTOPRAZOLE SOD 20 MG DELAYED RELEASE TAB PO SCH (08:31)
[2017-08-14] MEDS: TOPIRAMATE 100 MG TAB PO SCH ×2 (08:31→22:26)
[2017-08-14] MEDS: ASPIRIN EC 81 MG TABEC PO SCH (08:31)
[2017-08-14 08:48] VITALS: BP 162/72; PULSE 66; RESP 18; TEMP 97.8; O2SAT 99
[2017-08-14] MEDS: RESP: ALBUTEROL 2.5 MG/IPRATROPIUM 0.5 MG NEB (SCH) INH ×2 (10:00→16:00)
--- NOTE | 2017-08-14 11:20 | HHI.PR ---
Subjective Remarks Follow-up seizure disorder 08/10/17-patient seen and examined, generalized weakness to bilateral upper extremities. Afebrile. Oriented to self and place but not date or time. Working with PT during my assessment 08/11/17-patient seen and examined, alert and oriented 3. Getting stronger in all extremities. BP up 08/12/17-patient seen and examined, she is much more alert and oriented 3. Denies any acute event overnight. No seizure episodes 08/13/17-patient seen and examined, stable and no seizure activity. States she' s getting stronger. Only complains of buttocks soreness second 2 blisters 08/14/17-patient seen and examined, complains of abdominal pain mostly muscle pain. Denies any diarrhea or constipation. Tolerating by mouth without any competition nausea and vomiting. No seizure activity. Objective Vitals Vital Signs Date Time Temp Pulse Resp B/P (MAP) Pulse Ox O2 Delivery O2 Flow Rate FiO2 08/14/17 08:48 97.8 66 18 162/72 (102) 99 08/14/17 06:00 97.4 63 18 145/67 (93) 97 08/14/17 00:00 97.9 69 18 135/64 (87) 95 08/13/17 20:00 98.1 72 18 157/72 (100) 95 08/13/17 16:28 98.3 78 18 156/70 (98) 95 08/13/17 12:11 98.4 75 18 137/63 (87) 96 I/O 08/13/17 08/13/17 08/13/17 08/14/17 08/14/17 08/14/17 07:00 15:00 23:00 07:00 15:00 23:00 Intake Total 105 ml Output Total 120 ml Balance -120 ml 105 ml IV Total 105 ml Output Urine Total 120 ml # Voids 6 30 5 # Bowel Movements 3 4 0 Result Diagram: 08/10/17 0345 08/10/17 0345 Imaging Last Impressions Brain MRI 08/12/17 0000 Signed Impressions: Service Date/Time: Saturday, August 12, 2017 12:04 - CONCLUSION: 1. Senescent changes and minimal periventricular small vessel ischemic white matter demyelination. 2. Otherwise, unremarkable MRI examination of the brain. Adin Sanchez MD Head CT 08/05/17 1551 Signed Impressions: Service Date/Time: Saturday, August 05, 2017 15:55 - CONCLUSION: Negative noncontrast CT. Mustapha Grossman MD Chest X-Ray 08/05/17 1551 Signed Impressions: Service Date/Time: Saturday, August 05, 2017 16:08 - CONCLUSION: The study is more Midinspiratory with patchy opacity now present in both lungs with no focal consolidation. This could represent a viral pneumonitis. Mustapha Grossman MD Objective Remarks GENERAL: NAD SKIN: Warm and dry. HEAD: Normocephalic. EYES: No scleral icterus. No injection or drainage. NECK: Supple, trachea midline. No JVD or lymphadenopathy. CARDIOVASCULAR: Regular rate and rhythm with II/ LAUREN RESPIRATORY: Breath sounds equal bilaterally. No accessory muscle use. GASTROINTESTINAL: Abdomen soft, non-tender, nondistended. MUSCULOSKELETAL: No cyanosis, or edema. BACK: Nontender without obvious deformity. No CVA tenderness. Procedures None A/P Problem List: (1) Acute respiratory failure ICD Code: J96.00 - Acute respiratory failure Status: Resolved (2) Hypothyroidism ICD Code: E03.9 - Hypothyroidism Status: Chronic (3) Dyslipidemia ICD Code: E78.5 - Dyslipidemia Status: Chronic (4) Aspiration into airway ICD Code: T17.998A - Aspiration into airway Status: Resolved (5) Status epilepticus ICD Code: G40.301 - Status epilepticus Status: Acute (6) Low back pain ICD Code: M54.5 - Low back pain (7) Hypertension ICD Code: I10 - Essential (primary) hypertension (8) Elevated IOP ICD Code: H40.059 - Ocular hypertension, unspecified eye (9) Gastroesophageal reflux disease ICD Code: K21.9 - Gastro-esophageal reflux disease without esophagitis (10) Overactive bladder ICD Code: N32.81 - Overactive bladder Assessment and Plan 67-year-old female with Seizure disorder NOS Status epilepticus Elevated IOC Topiramate 100 mg by mouth twice a day along with divalproex sodium 500 mg IV 3 times a day. On divalproex sodium 1 g twice a day at home neurology is following- Dr. Jiang Seizure precautions Continue bimatoprost 0.05% 1 drop each eye at night for elevated IOC Repeat brain MRI 08/12/17 unremarkable Hypertension labile-resolved Dyslipidemia On Lisinopril 20mg daily, Norvasc 5 mg daily, ASA 81mg daily On moexipril 15 mg daily at home As needed hydralazine, labetalol Acute respiratory failure secondary to altered mental status/seizure-Resolved Continue with oxygen keep sat >92% Albuterol/hypertrophy results every 6 hours with albuterol aerosols every 2 hours. Echocardiogram 2014 revealed EF 60-65%. Grade 1 diastolic dysfunction. Gastroesophageal reflux disease Pantoprazole for GI prophylaxis Overactive bladder On oxybutynin 15 mg daily Hypothyroidism Continue levothyroxine 75 g daily, TSH:3.44 Macrocytosis Leukocytosis-Resolved Thrombocytopenia Monitor CBC daily. s/p empiric abx(piperacillin/tazobactam and azithromycin) Blood cultures and sputum cx NTD Arthritis Chronic low back pain PT/OT evaluate and treat Problem Qualifiers (1) Acute respiratory failure: Qualified Codes: J96.00 - Acute respiratory failure, unspecified whether with hypoxia or hypercapnia (2) Hypothyroidism: Qualified Codes: E03.9 - Hypothyroidism, unspecified (3) Aspiration into airway: Qualified Codes: T17.908A - Unspecified foreign body in respiratory tract, part unspecified causing other injury, initial encounter (4) Low back pain: Qualified Codes: M54.5 - Low back pain; G89.29 - Other chronic pain (5) Hypertension: Qualified Codes: I10 - Essential (primary) hypertension (6) Elevated IOP: Qualified Codes: H40.053 - Ocular hypertension, bilateral (7) Gastroesophageal reflux disease: Qualified Codes: K21.9 - Gastro-esophageal reflux disease without esophagitis Kashif Muller MD Aug 14, 2017 11:20
[2017-08-14] MEDS: ACETAMINOPHEN 500 MG CPLT PO PRN (11:40)
[2017-08-14 13:08] VITALS: BP 138/60; PULSE 70; RESP 18; TEMP 98.1; O2SAT 95
[2017-08-14 16:34] VITALS: BP 133/63; PULSE 74; RESP 18; TEMP 97.8; O2SAT 95
[2017-08-14] MEDS: LATANOPROST 0.005% OPHT SOLN 2.5 ML BTL EACH EYE SCH (21:00)
[2017-08-15 01:25] VITALS: BP 146/67; PULSE 66; RESP 20; TEMP 98.1; O2SAT 94
[2017-08-15] MEDS: CHLORHEXIDINE GLUCONATE 2 % 1 PACK (2 CLOTHS) TOP SCH (04:00)
[2017-08-15] MEDS: HEPARIN SODIUM - SQ 10,000 UNITS/ML VIAL SQ SCH ×2 (04:00→12:00)
[2017-08-15] MEDS: RESP: ALBUTEROL 2.5 MG/IPRATROPIUM 0.5 MG NEB (SCH) INH ×3 (04:05→15:10)
[2017-08-15 05:49] VITALS: BP 132/60; PULSE 63; RESP 20; TEMP 98.1; O2SAT 95
[2017-08-15] MEDS: VALPROATE INJ 500 MG in SODIUM CHLORIDE 0.9% INJ 100 ML IV SCH ×2 (05:52→13:13)
[2017-08-15] MEDS: LEVOTHYROXINE SODIUM 75 MCG TAB PO SCH (05:52)
[2017-08-15 08:00] VITALS: BP 160/75; PULSE 62; RESP 20; TEMP 97.7; O2SAT 96
[2017-08-15] MEDS: CHLORHEXIDINE 0.12% (ORAL KIT) 15 ML CUP MT SCH (08:00)
[2017-08-15] MEDS: ARTIFICIAL TEARS OPTH SOLN 15 ML BTL EACH EYE SCH ×2 (08:55→12:09)
[2017-08-15] MEDS: TOLTERODINE TARTRATE 4 MG CAP LA PO SCH (08:56)
[2017-08-15] MEDS: PANTOPRAZOLE SOD 20 MG DELAYED RELEASE TAB PO SCH (08:57)
[2017-08-15] MEDS: TOPIRAMATE 100 MG TAB PO SCH (08:58)
[2017-08-15] MEDS: ASPIRIN EC 81 MG TABEC PO SCH (08:58)
[2017-08-15] MEDS: LISINOPRIL 20 MG TAB PO SCH (08:58)
[2017-08-15] MEDS: SODIUM CHLORIDE 0.9% FLUSH 10 ML FLUSH IV FLUSH SCH (08:59)
[2017-08-15] MEDS: amLODIPine BESYLATE 5 MG TAB PO SCH (08:59)
--- NOTE | 2017-08-15 10:25 | HHI.PR ---
Subjective Remarks in no acute distress. denies pain. no new complaints. d/w the RN and no acute issues over night. Objective Vitals Vital Signs Date Time Temp Pulse Resp B/P (MAP) Pulse Ox O2 Delivery O2 Flow Rate FiO2 08/15/17 08:00 97.7 62 20 160/75 (103) 96 08/15/17 05:49 98.1 63 20 132/60 (84) 95 08/15/17 01:25 98.1 66 20 146/67 (93) 94 08/14/17 16:34 97.8 74 18 133/63 (86) 95 08/14/17 13:08 98.1 70 18 138/60 (86) 95 I/O 08/14/17 08/14/17 08/14/17 08/15/17 08/15/17 08/15/17 07:00 15:00 23:00 07:00 15:00 23:00 Intake Total 200 ml Balance 200 ml IV Total 200 ml # Voids 5 3 3 1 # Bowel Movements 0 1 Imaging Last Impressions Brain MRI 08/12/17 0000 Signed Impressions: Service Date/Time: Saturday, August 12, 2017 12:04 - CONCLUSION: 1. Senescent changes and minimal periventricular small vessel ischemic white matter demyelination. 2. Otherwise, unremarkable MRI examination of the brain. Adin Sanchez MD Head CT 08/05/17 1551 Signed Impressions: Service Date/Time: Saturday, August 05, 2017 15:55 - CONCLUSION: Negative noncontrast CT. Mustapha Grossman MD Chest X-Ray 08/05/17 1551 Signed Impressions: Service Date/Time: Saturday, August 05, 2017 16:08 - CONCLUSION: The study is more Midinspiratory with patchy opacity now present in both lungs with no focal consolidation. This could represent a viral pneumonitis. Mustapha Grossman MD Objective Remarks GENERAL: This is a well-nourished, well-developed patient, in no apparent distress. CARDIOVASCULAR: Regular rate and regular rhythm without murmurs, gallops, or rubs. RESPIRATORY: Clear to auscultation. Breath sounds equal bilaterally. No wheezes , rales, or rhonchi. GASTROINTESTINAL: Abdomen soft, non-tender, nondistended. Normal, active bowel sounds MUSCULOSKELETAL: Extremities without clubbing, cyanosis, or edema. NEURO: Alert & Oriented x4 to person, place, time, situation. Moves all ext x4 Procedures None Medications and IVs Current Medications Lorazepam (Ativan Inj) 2 mg STK-MED ONCE .ROUTE ; Start 08/05/17 at 15:53; Stop 08/05/17 at 15:54; Status DC Lorazepam (Ativan Inj) 2 mg ONCE ONCE IV PUSH Last administered on 08/05/17 15:57; Start 08/05/17 at 16:00; Stop 08/05/17 at 16:01; Status DC Etomidate (Amidate Inj) 40 mg STK-MED ONCE .ROUTE Last administered on 16:23; Start 08/05/17 at 16:20; Stop 08/05/17 at 16:21; Status DC Succinylcholine Chloride (Quelicin Inj) 200 mg STK-MED ONCE .ROUTE Last administered on 08/05/17 16:25; Start 08/05/17 at 16:20; Stop 08/05/17 at 16:21 ; Status DC Propofol 100 ml @ 2.46 mls/hr TITRATE PRN IV SEDATION Last administered on 05:36; Start 08/05/17 at 16:30; Stop 08/06/17 at 08:25; Status DC Sodium Chloride 1,000 ml @ 1,000 mls/hr Q1H IV Last administered on 08/05/17 17:34; Start 08/05/17 at 17:19; Stop 08/05/17 at 18:18; Status DC Sodium Chloride 1,000 ml @ 84 mls/hr [id number] IV Last administered on 12:55; Start 08/05/17 at 17:44; Stop 08/07/17 at 07:35; Status DC Sodium Chloride (NS Flush) 2 ml UNSCH PRN IV FLUSH FLUSH AFTER USING IV ACCESS Last administered on 08/05/17 21:48; Start 08/05/17 at 17:45 Sodium Chloride (NS Flush) 2 ml BID IV FLUSH Last administered on 08/15/17 08: 59; Start 08/05/17 at 21:00 Lansoprazole (Prevacid Odt) 30 mg DAILY G-TUBE Last administered on 08/09/17 10:20; Start 08/06/17 at 09:00; Stop 08/09/17 at 12:52; Status DC Lorazepam (Ativan Inj) 1 mg Q1H PRN IV PUSH Agitation/Sedation; Start 08/05/17 at 17:45 Artificial Tears (Tears Naturale Opth Soln) 1 drop TID EACH EYE Last administered on 08/15/17 08:55; Start 08/05/17 at 18:00 Ondansetron HCl (Zofran Inj) 4 mg Q6H PRN IV PUSH NAUSEA OR VOMITING; Start at 17:45 Albuterol/ Ipratropium (Duoneb Neb) 1 ampule Q6HR NEB INH Last administered on 08/09/17 09:50; Start 08/05/17 at 22:00; Stop 08/09/17 at 12:27; Status DC Albuterol Sulfate (Albuterol Neb) 2.5 mg Q2HR NEB PRN INH SOB/WHEEZING; Start 08/05/17 at 17:45 Heparin Sodium (Porcine) (Heparin Inj) 5,000 units Q8H SQ Last administered on 08/14/17 22:25; Start 08/05/17 at 20:00 Miscellaneous Information 1 [id number] ; Start 08/05/17 at 17:45 Chlorhexidine Gluconate (Chlorhexidine 2% Cloth) Taper DAILY@04 TOP Last administered on 08/12/17 04:00; Start 08/06/17 at 04:00; Stop 08/02/18 at 03:59 Chlorhexidine Gluconate (Chlorhexidine 2% Cloth) 3 pack UNSCH PRN TOP HYGIENIC CARE; Start 08/05/17 at 17:45 Senna/Docusate Sodium (Anahi-Colace) 1 tab BID PO Last administered on 08:53; Start 08/05/17 at 21:00; Stop 08/10/17 at 09:32; Status DC Magnesium Hydroxide (Milk Of Magnesia Liq) 30 ml Q12H PRN PO MILD - MODERATE CONSTIPATION; Start 08/05/17 at 17:45 Sennosides (Senokot) 17.2 mg Q12H PRN PO MODERATE - SEVERE CONSTIPATION; Start 08/05/17 at 17:45; Stop 08/10/17 at 09:32; Status DC Bisacodyl (Dulcolax Supp) 10 mg DAILY PRN RECTAL SEVERE CONSITIPATION; Start at 17:45; Stop 08/10/17 at 09:32; Status DC Lactulose (Lactulose Liq) 30 ml DAILY PRN PO SEVERE CONSITIPATION; Start at 17:45; Stop 08/10/17 at 09:32; Status DC Chlorhexidine Gluconate (Peridex 0.12% Liq) 15 ml BID@08,20 MT Last administered on 08/07/17 08:11; Start 08/05/17 at 20:00; Stop 08/11/17 at 10:12 ; Status DC Midazolam HCl 100 ml @ 2 mls/hr TITRATE PRN IV SEDATION; Start 08/05/17 at 17: 45; Stop 08/06/17 at 18:05; Status DC Topiramate (Topamax) 100 mg Q12HR PO Last administered on 08/15/17 08:58; Start 08/05/17 at 21:00 Valproate Sodium 500 mg/Sodium Chloride 105 ml @ 105 mls/hr Q8HR IV ; Start at 08:00; Stop 08/06/17 at 08:25; Status DC Propofol 100 ml @ 2.46 mls/hr TITRATE PRN IV SEDATION Last administered on 13:38; Start 08/05/17 at 18:00; Stop 08/06/17 at 18:05; Status DC Clevidipine 50 ml @ 2 mls/hr TITRATE PRN IV Blood Pressure Management; Start at 18:00 Labetalol HCl (Trandate Inj) 10 mg Q1HR PRN IV PUSH SBP>170, DBP>90, HR>65 Last administered on 08/11/17 21:06; Start 08/05/17 at 18:00; Stop 08/11/17 at 22:42; Status DC Hydralazine HCl (Apresoline Inj) 10 mg Q1HR PRN IV PUSH SBP> OR = 170, DBP> OR = 90 Last administered on 08/11/17 22:11; Start 08/05/17 at 18:00; Stop at 22:42; Status DC Nitroglycerin (Nitroglycerin 2% Oint) 2 inch Q6HR PRN TOPICAL SBP>170, DBP>90; Start 08/05/17 at 18:00 Piperacillin Sod/ Tazobactam Sod 100 ml @ 200 mls/hr Q6H IV Last administered on 08/10/17 08:54; Start 08/05/17 at 20:00; Stop 08/10/17 at 09:39; Status DC Azithromycin 500 mg/Sodium Chloride 250 ml @ 250 mls/hr Q24H IV Last administered on 08/09/17 21:31; Start 08/05/17 at 21:00; Stop 08/10/17 at 09:39 ; Status DC Aspirin (Ecotrin Ec) 81 mg DAILY PO Last administered on 08/15/17 08:58; Start 08/06/17 at 09:00 Levothyroxine Sodium (Synthroid) 75 mcg DAILY@0600 PO Last administered on 08/15 05:52; Start 08/06/17 at 06:00 Topiramate (Topamax) 100 mg BID PO Last administered on 08/05/17 21:44; Start 08/05/17 at 21:00; Stop 08/06/17 at 08:25; Status DC Latanoprost (Xalatan 0.005% Opt Soln) 1 drop HS EACH EYE Last administered on 08/14/17 21:00; Start 08/05/17 at 21:00 Lisinopril (Prinivil) 20 mg DAILY PO Last administered on 08/15/17 08:58; Start 08/06/17 at 09:00 Valproate Sodium 500 mg/Sodium Chloride 105 ml @ 105 mls/hr Q8HR IV Last administered on 08/15/17 05:52; Start 08/06/17 at 14:00 Potassium Chloride (KCl Powder) 40 meq ONCE ONCE OG-TUBE Last administered on 08/06/17 08:45; Start 08/06/17 at 09:00; Stop 08/06/17 at 09:01; Status DC Potassium Chloride 100 ml @ 100 mls/hr Q1H IV Last administered on 08/06/17 09:32; Start 08/06/17 at 09:00; Stop 08/06/17 at 11:59; Status DC Acetaminophen (Tylenol) 500 mg Q4H PRN PO fever, pain 1-10 Last administered on 08/14/17 11:40; Start 08/06/17 at 18:15 Chlorhexidine Gluconate (Peridex 0.12% Liq) 15 ml BID@08,20 MT Last administered on 08/11/17 20:00; Start 08/06/17 at 20:00 Propofol 100 ml @ 2.64 mls/hr TITRATE PRN IV SEDATION Last administered on 04:02; Start 08/06/17 at 18:15; Stop 08/07/17 at 14:00; Status DC Midazolam HCl 100 ml @ 2 mls/hr TITRATE PRN IV SEDATION; Start 08/06/17 at 18: 15; Stop 08/07/17 at 14:00; Status DC Albuterol/ Ipratropium (Duoneb Neb) 1 ampule Q6HR NEB INH Last administered on 08/12/17 10:56; Start 08/09/17 at 16:00; Stop 08/13/17 at 11:18; Status DC Tolterodine Tartrate (Detrol La) 4 mg DAILY PO Last administered on 08/15/17 08:56; Start 08/10/17 at 09:00 Pantoprazole Sodium (Protonix) 20 mg DAILY PO Last administered on 08/15/17 08 :57; Start 08/10/17 at 09:00 Amlodipine Besylate (Norvasc) 5 mg DAILY PO Last administered on 08/15/17 08: 59; Start 08/11/17 at 11:00 Clonidine (Catapres) 0.1 mg Q6H PRN PO SBP>160, DBP>90; Start 08/11/17 at 22:45 Albuterol/ Ipratropium (Duoneb Neb) 1 ampule Q6HR NEB INH ; Start 08/13/17 at 16:00 A/P Assessment and Plan A/P Seizure disorder NOS Status epilepticus Elevated IOC continue Topiramate and divalproex sodium On divalproex sodium 1 g twice a day at home neurology follow-up appreciated and cleared for discharge. Seizure precautions Continue bimatoprost 0.05% 1 drop each eye at night for elevated IOC Repeat brain MRI 08/12/17 unremarkable Hypertension labile-resolved Dyslipidemia On Lisinopril 20mg daily, Norvasc 5 mg daily, ASA 81mg daily On moexipril 15 mg daily at home Acute respiratory failure secondary to altered mental status/seizure-Resolved Continue with oxygen keep sat >92% Albuterol/hypertrophy results every 6 hours with albuterol aerosols every 2 hours. Echocardiogram 2014 revealed EF 60-65%. Grade 1 diastolic dysfunction. Gastroesophageal reflux disease Pantoprazole for GI prophylaxis Overactive bladder On oxybutynin 15 mg daily Hypothyroidism Continue levothyroxine 75 g daily, TSH:3.44 Macrocytosis Leukocytosis-Resolved Thrombocytopenia Monitor CBC daily. s/p empiric abx(piperacillin/tazobactam and azithromycin) Blood cultures and sputum cx NTD Arthritis Chronic low back pain PT/OT evaluate and treat Discharge Planning dc to SNF today. see med list. f/u; pcp and neurology. d/w the patient and RN. d/w . time spent 35 min. Zoie Noland MD Aug 15, 2017 10:25
[2017-08-15] MEDS ORDERED: LISI-515 PO (10:30)
[2017-08-15] MEDS ORDERED: AMLO5 PO (10:30)
[2017-08-15] MEDS ORDERED: VALP250C PO (10:30)
--- NOTE | 2017-08-15 10:31 | HHI.DS ---
Discharge Summary Admission Date Aug 05, 2017 at 17:28 Discharge Date: Aug 15, 2017 Admitting Diagnosis Seizure, VDRF (1) Acute respiratory failure ICD Code: J96.00 - Acute respiratory failure Diagnosis: Principal Status: Resolved (2) Hypothyroidism ICD Code: E03.9 - Hypothyroidism Diagnosis: Secondary Status: Chronic (3) Dyslipidemia ICD Code: E78.5 - Dyslipidemia Diagnosis: Secondary Status: Chronic (4) Aspiration into airway ICD Code: T17.998A - Aspiration into airway Diagnosis: Principal Status: Resolved (5) Status epilepticus ICD Code: G40.301 - Status epilepticus Diagnosis: Principal Status: Acute (6) Low back pain ICD Code: M54.5 - Low back pain Diagnosis: Principal (7) Hypertension ICD Code: I10 - Essential (primary) hypertension Diagnosis: Principal (8) Elevated IOP ICD Code: H40.059 - Ocular hypertension, unspecified eye Diagnosis: Secondary (9) Gastroesophageal reflux disease ICD Code: K21.9 - Gastro-esophageal reflux disease without esophagitis Diagnosis: Principal (10) Overactive bladder ICD Code: N32.81 - Overactive bladder Diagnosis: Secondary Procedures None Brief History - From Admission 67-year-old female. Date of admission 08/05/2017. Past medical history includes known seizure disorder on divalproex sodium and recently discontinued topiramate who presents to the [facility] ED via ambulance for evaluation of altered mental status. According to the Fatuma, this patient had an episode of nonsensical speech and confusion where she was a little bit altered after eating out at a local restaurant around 2 PM. According to her she has had similar episodes like this whenever she gets a grand mal seizure. She was driven home and was given 1000 mg of divalproex sodium as he thought she might not have taken her medication today. At that point, completely became altered. EMS arrived and was brought here for evaluation. Per patient did not fell or hit her head. No history of CVA. Patient apparently is compliant with his medications. No drugs or alcohol per . Patient follows with Dr. Headley as her neurologist and was recently told to discontinue her topiramate secondary to tremors. She has not had a seizure since 2014. At this facility, patient was altered the point were Dr. Taylor/ED physician and her clinical judgment assessed she needed oral airway protection and was intubated using 40 mg etomidate and 200 mg succinylcholine. Follow-up laboratories revealed normal CBC with slight acute kidney injury. Head CT showed no acute intracranial findings. Valproic acid was 132. Topiramate level pending. Patient is currently on Diprivan at 30 mu./kg per minute in the ED and spontaneous movement involving bilateral upper and lower extremities. She is quite hypertensive. We are asked to admit. Imaging Last Impressions Brain MRI 08/12/17 0000 Signed Impressions: Service Date/Time: Saturday, August 12, 2017 12:04 - CONCLUSION: 1. Senescent changes and minimal periventricular small vessel ischemic white matter demyelination. 2. Otherwise, unremarkable MRI examination of the brain. Adin Sanchez MD Head CT 08/05/17 1551 Signed Impressions: Service Date/Time: Saturday, August 05, 2017 15:55 - CONCLUSION: Negative noncontrast CT. Mustapha Grossman MD Chest X-Ray 08/05/17 1551 Signed Impressions: Service Date/Time: Saturday, August 05, 2017 16:08 - CONCLUSION: The study is more Midinspiratory with patchy opacity now present in both lungs with no focal consolidation. This could represent a viral pneumonitis. Mustapha Grossman MD PE at Discharge GENERAL: This is a well-nourished, well-developed patient, in no apparent distress. CARDIOVASCULAR: Regular rate and regular rhythm without murmurs, gallops, or rubs. RESPIRATORY: Clear to auscultation. Breath sounds equal bilaterally. No wheezes , rales, or rhonchi. GASTROINTESTINAL: Abdomen soft, non-tender, nondistended. Normal, active bowel sounds MUSCULOSKELETAL: Extremities without clubbing, cyanosis, or edema. NEURO: Alert & Oriented x4 to person, place, time, situation. Moves all ext x4 Hospital Course Seizure disorder NOS Status epilepticus Elevated IOC continue Topiramate and divalproex sodium On divalproex sodium 1 g twice a day at home neurology follow-up appreciated and cleared for discharge. Seizure precautions Continue bimatoprost 0.05% 1 drop each eye at night for elevated IOC Repeat brain MRI 08/12/17 unremarkable Hypertension labile-resolved Dyslipidemia On Lisinopril 20mg daily, Norvasc 5 mg daily, ASA 81mg daily On moexipril 15 mg daily at home Acute respiratory failure secondary to altered mental status/seizure-Resolved Continue with oxygen keep sat >92% Albuterol/hypertrophy results every 6 hours with albuterol aerosols every 2 hours. Echocardiogram 2014 revealed EF 60-65%. Grade 1 diastolic dysfunction. Gastroesophageal reflux disease Pantoprazole for GI prophylaxis Overactive bladder On oxybutynin 15 mg daily Hypothyroidism Continue levothyroxine 75 g daily, TSH:3.44 Macrocytosis Leukocytosis-Resolved Thrombocytopenia Monitor CBC daily. s/p empiric abx(piperacillin/tazobactam and azithromycin) Blood cultures and sputum cx NTD Arthritis Chronic low back pain PT/OT evaluate and treat Pt Condition on Discharge: Stable Discharge Disposition: Discharge to SNF Discharge Time: > 30 minutes Discharge Instructions DIET: Follow Instructions for: Heart Healthy Diet Activities you can perform: Regular-No Restrictions Activities to Avoid: Driving Follow up Referrals: Neurology PCP Follow-up New Medications: Valproic Acid (Valproic Acid) 250 Mg Cap 500 MG PO TID for seizure for 30 Days, #90 CAP 0 Refills Amlodipine (Norvasc) 5 Mg Tab 5 MG PO DAILY for hypertension for 30 Days, #30 TAB 0 Refills Lisinopril (Lisinopril) 20 Mg Tab 20 MG PO DAILY for hypertension for 30 Days, #30 TAB 0 Refills Continued Medications: Alendronate (Alendronate) 70 Mg Tab 70 MG PO Q7D for Osteporosis Treatment, #4 TAB [address] (Aspir-81) 81 Mg Tabdr 81 MG PO DAILY Bimatoprost Opth Drops (Lumigan Opth Drops) 0.01% Soln 1 DROP EACH EYE HS for Intraocular Pressure, #1 BOTTLE 0 Refills Levothyroxine (Levothyroxine) 75 Mcg Tab 75 MCG PO DAILY for Thyroid, #30 TAB 0 Refills Oxybutynin ER 24 HR (Oxybutynin ER 24 HR) 15 Mg Tab 15 MG PO DAILY for Overactive Bladder, TAB 0 Refills Oxybutynin ER 24 HR (Ditropan XL 24 HR) 15 Mg Tab 15 MG PO DAILY for Urinary Symptom Managemen, #30 TAB 0 Refills Topiramate (Topiramate) 50 Mg Tab 100 MG PO BID for Control Seizures, #60 TAB 0 Refills Discontinued Medications: Divalproex ER (Depakote ER) 500 Mg Louann 1000 MG PO BID for Control Seizures, #60 TAB 0 Refills Moexipril (Moexipril) 15 Mg Tab 15 MG PO DAILY for Blood Pressure Management, #30 TAB 0 Refills Zoie Noland MD Aug 15, 2017 10:31
[2017-08-15 12:00] VITALS: BP 150/67; PULSE 67; RESP 20; TEMP 97.9; O2SAT 96
[2017-08-15 16:00] VITALS: BP 133/62; PULSE 72; RESP 20; TEMP 99.9; O2SAT 98
== END 2017-08-15 17:53 | DRG 208 ==
LOC: NEPE 15:41 → NEDA 17:28 → HIMW 19:20 → N05A 08-11 23:23
PROVIDERS: ADMIT Internal Medicine; ATTEND Internal Medicine
PROC: 5A1945Z Respiratory Ventilation, 24-96 Consecutive Hours (ICD-10-PCS; principal; 2017-08-05)
PROC: 0BH17EZ Insertion of Endotracheal Airway into Trachea, Via Natural or Artificial Opening (ICD-10-PCS; 2017-08-05)
DX: J96.00 Acute respiratory failure, unspecified whether with hypoxia or hypercapnia (principal); N17.9 Acute kidney failure, unspecified; D69.6 Thrombocytopenia, unspecified; I11.9 Hypertensive heart disease without heart failure; G40.401 Other generalized epilepsy and epileptic syndromes, not intractable, with status epilepticus; T42.6X5A Adverse effect of other antiepileptic and sedative-hypnotic drugs, initial encounter; M19.90 Unspecified osteoarthritis, unspecified site; E03.9 Hypothyroidism, unspecified; E78.5 Hyperlipidemia, unspecified; K21.9 Gastro-esophageal reflux disease without esophagitis; N32.81 Overactive bladder; S30.820A Blister (nonthermal) of lower back and pelvis, initial encounter; D75.89 Other specified diseases of blood and blood-forming organs; G89.29 Other chronic pain; M54.5 Low back pain; H40.053 Ocular hypertension, bilateral; D72.829 Elevated white blood cell count, unspecified; E87.6 Hypokalemia; Z88.1 Allergy status to other antibiotic agents; Z96.653 Presence of artificial knee joint, bilateral
CPT/HCPCS: 31500; 36600; 43753; 51702; 70450; 70551; 71010; 76937; 80048; 80053; 80164; 80201; 80307; 81001; 82140; 82550; 82607; 82746; 82805; 83605; 83735; 83921; 84100; 84443; 84484; 85007; 85025; 85027; 85060; 85610; 85730; 86140; 87040; 87070; 87205; 87641; 93005; 94002; 94003; 94150; 94640; 94664; 95819; 96374; 96375; J0330; J0360; J0456; J1644; J2060; J2543; J3480; J7030; J7050

== ENCOUNTER 2017-11-08 16:32 | Inpatient (IN) | payer MEDICARE ==
[2017-11-08] VITALS (12 sets, daily range): BP systolic 158–203; BP diastolic 84–98; PULSE 61–85; RESP 14–16; TEMP 97.8; O2SAT 99–100
[~2017-11-08] VITALS: Ht 165.1 cm; Wt 87.0 kg
[~2017-11-08 16:32] MED LIST changes: +ALEN1TAB48 PO; -ALEN70TA39 PO; +AMLO5 PO; +ASPI81TA81 PO; -ASPI81TA82 PO; -CEFU1TAB42 PO; -DEPA500T PO; -FISH100020 PO; +LISI-515 PO; +OXYB15TA PO; -TOPA100T8 PO; +TOPI50TA7 PO; -UNIV15TA PO; +VALP250C PO; -[UNRECOGNIZED DRUG - CODE] PO
--- NOTE | 2017-11-08 16:54 | PD ---
HPI Chief Complaint: Seizure Time Seen by Provider: 16:39 Travel History International Travel<30 days: No Contact w/Intl Traveler<30days: No Traveled to known affect area: No History of Present Illness HPI This is a 67-year-old female history seizure disorder, hypertension, who presents here via EMS intubated after having a 15 minute seizure at home. Paramedics report they were called to the home after the patient had a 15 minute seizure. When they arrived she was with decreased mental status with a GCS of reported 3. They report that she had had an emesis and aspiration. They report that her O2 sats were in the high 80s. They put on 100% nonrebreather and were unable to get it higher. The patient had another tonic- clonic generalized seizure. They gave 2 mg of Ativan. State at that time her respiratory drive dropped even further and they made the decision to intubate. The patient presents intubated. They give history that the who was at home stated that she had a viral syndrome over the last couple days. Other than that she was doing fine. Paramedics report that the told them that they were trying to adjust her seizure medication as she was having some breakthrough seizures. There is no other information available at the time of this dictation. PFSH Past Medical History Arthritis: Yes Asthma: Yes Cancer: No Cardiovascular Problems: Yes High Cholesterol: Yes Congestive Heart Failure: No COPD: No Cerebrovascular Accident: No Diabetes: No Endocrine: Yes Gastrointestinal Disorders: Yes GERD: No Genitourinary: No Hypertension: Yes Immune Disorder: No Implanted Vascular Access Dvce: Yes Musculoskeletal: Yes Neurologic: Yes Psychiatric: No Reproductive: No Respiratory: Yes Migraines: Yes Seizures: Yes (last seizure dec, ) Thyroid Disease: Yes (HYPOTHYROIDISM) Ulcer: Yes ?: Not Menopausal: Yes Past Surgical History Abdominal Surgery: Yes (hyst and ) Body Medical Devices: bilateral knee replacements Cardiac Surgery: No Ear Surgery: No Endocrine Surgery: No Eye Surgery: Yes (cataract removal) Genitourinary Surgery: No Gynecologic Surgery: Yes (, HYSTERECTOMY) Joint Replacement: Yes (BILATERAL KNEE REPLACEMENT) Neurologic Surgery: Yes (seizures) Oral Surgery: No Thoracic Surgery: Yes Other Surgery: Yes Social History Alcohol Use: No Tobacco Use: No Substance Use: No Allergies-Medications (Allergen,Severity, Reaction): Coded Allergies: fluconazole (Unverified Allergy, Severe, 9/23/17) hydromorphone (Unverified Allergy, Severe, 08/05/17) levetiracetam (Unverified Allergy, Severe, Anaphylaxis, 08/05/17) rifampin (Unverified Allergy, Severe, 08/05/17) phenytoin (Unverified Allergy, Mild, Rash, 08/05/17) Reported Meds & Prescriptions Reported Meds & Active Scripts Active Valproic Acid 250 Mg Cap 500 Mg PO TID 30 Days Lisinopril 20 Mg Tab 20 Mg PO DAILY 30 Days Norvasc (Amlodipine Besylate) 5 Mg Tab 5 Mg PO DAILY 30 Days Reported Ezetimibe 10 Mg Tab 10 Mg PO DAILY Ditropan (Oxybutynin Chloride) 5 Mg Tab 5 Mg PO DAILY Ditropan (Oxybutynin Chloride) 5 Mg Tab 10 Mg PO DAILY Montelukast (Montelukast Sodium) 10 Mg Tab 10 Mg PO HS Aspir-81 (Aspirin) 81 Mg Tabdr 81 Mg PO DAILY Levothyroxine (Levothyroxine Sodium) 75 Mcg Tab 75 Mcg PO DAILY Alendronate (Alendronate Sodium) 70 Mg Tab 70 Mg PO Q7D [place] Opth Drops (Bimatoprost) 0.01% Soln 1 Drop EACH EYE HS Topiramate 50 Mg Tab 100 Mg PO BID Review of Systems ROS Limitations: Clinical Condition (patient is intubated and unable to give any history.), Intubated Except as stated in HPI: all other systems reviewed are Neg Physical Exam Narrative GENERAL: Well developed well-nourished female who is intubated and being ventilated through the ET tube by paramedics. The patient is nonresponsive. SKIN: Focused skin assessment warm/dry. HEAD: Atraumatic. Normocephalic. EYES: Pupils equal and round and reactive at 4 mm. No scleral icterus. No injection or drainage. ENT: No nasal bleeding or discharge. Mucous membranes pink and moist. There was some dried vomitus on her chin. NECK: Trachea midline. No JVD. CARDIOVASCULAR: Regular rate and rhythm. No murmur appreciated. RESPIRATORY: Coarse rhonchi in the lower lung barbosa. The patient was being bag ventilated through the ET tube. GASTROINTESTINAL: Abdomen soft, nondistended. MUSCULOSKELETAL: No obvious deformities. No clubbing. No cyanosis. No edema. NEUROLOGICAL: Intubated and sedated. The patient had a GCS of 3. She did not respond to painful stimuli or sternal rub. No clonus. Downward Babinski was noted. Data Data Last Documented VS Vital Signs Date Time Temp Pulse Resp B/P (MAP) Pulse Ox O2 Delivery O2 Flow Rate FiO2 11/08/17 19:00 65 14 183/98 (126) 100 Ventilator 100 11/08/17 16:35 97.8 Orders Orders Complete Blood Count With Diff (11/08/17 16:46) Valproic Acid (Depakene) (11/08/17 16:46) Ct Brain W/O Iv Contrast(Rout) (11/08/17 ) Blood Glucose (11/08/17 16:46) Ecg Monitoring (11/08/17 16:46) Iv Access Insert/Monitor (11/08/17 16:46) Oximetry (11/08/17 16:46) Comprehensive Metabolic Panel (11/08/17 16:46) Sodium Chloride 0.9% Flush (Ns Flush) (11/08/17 17:00) Ua Includes Microscopic (11/08/17 16:46) Midazolam 100 Mg/100 Ml Inj (Versed Inj) (11/08/17 17:00) Neurological Rass Scale Q30MX2,Q2HX4,Q4H (11/08/17 16:46) Prothrombin Time / Inr (Pt) (11/08/17 16:46) Act Partial Throm Time (Ptt) (11/08/17 16:46) Electrocardiogram (11/08/17 16:35) Admit Order (Ed Use Only) (11/08/17 19:04) Chest, Single Ap (11/08/17 19:04) Labs Laboratory Tests Test 11/08/17 16:40 White Blood Count 7.7 TH/MM3 Red Blood Count 4.06 MIL/MM3 Hemoglobin 14.0 GM/DL Hematocrit 42.2 % Mean Corpuscular Volume 104.0 FL Mean Corpuscular Hemoglobin 34.4 PG Mean Corpuscular Hemoglobin Concent 33.1 % Red Cell Distribution Width 14.2 % Platelet Count 217 TH/MM3 Mean Platelet Volume 8.6 FL Neutrophils (%) (Auto) 46.9 % Lymphocytes (%) (Auto) 43.7 % Monocytes (%) (Auto) 6.1 % Eosinophils (%) (Auto) 2.7 % Basophils (%) (Auto) 0.6 % Neutrophils # (Auto) 3.6 TH/MM3 Lymphocytes # (Auto) 3.4 TH/MM3 Monocytes # (Auto) 0.5 TH/MM3 Eosinophils # (Auto) 0.2 TH/MM3 Basophils # (Auto) 0.0 TH/MM3 CBC Comment DIFF FINAL Differential Comment Prothrombin Time 9.8 SEC Prothromb Time International Ratio 1.0 RATIO Activated Partial Thromboplast Time 22.2 SEC Urine Color YELLOW Urine Turbidity CLEAR Urine pH 7.0 Urine Specific [place] 1.017 Urine Protein 30 mg/dL Urine Glucose (UA) NEG mg/dL Urine Ketones NEG mg/dL Urine Occult Blood SMALL Urine Nitrite NEG Urine Bilirubin NEG Urine Urobilinogen LESS THAN 2.0 MG/DL Urine Leukocyte Esterase TRACE Urine RBC 10 /hpf Urine WBC 3 /hpf Urine Squamous Epithelial Cells <1 /hpf Urine Renal Epithelial Cells <1 /hpf Urine Hyaline Casts 4 /lpf Blood Urea Nitrogen 23 MG/DL Creatinine 0.94 MG/DL Random Glucose 146 MG/DL Total Protein 8.0 GM/DL Albumin 4.0 GM/DL Calcium Level 9.0 MG/DL Alkaline Phosphatase 54 U/L Aspartate Amino Transf (AST/SGOT) 27 U/L Alanine Aminotransferase (ALT/SGPT) 19 U/L Total Bilirubin 0.2 MG/DL Sodium Level 137 MEQ/L Potassium Level 4.3 MEQ/L Chloride Level 102 MEQ/L Carbon Dioxide Level 28.8 MEQ/L Anion Gap 6 MEQ/L Estimat Glomerular Filtration Rate 59 ML/MIN Valproic Acid (Depakene) Level 80 MCG/ML MDM Medical Decision Making Medical Screen Exam Complete: Yes Emergency Medical Condition: Yes Differential Diagnosis Status epilepticus versus intracranial hemorrhage versus metabolic derangement Narrative Course 67-year-old female history of seizure disorder, presents after having a prolonged reported 15 minute seizure. The patient has a a likely aspiration pneumonia. She was intubated in the field by paramedics. She had a second seizure with the paramedics and they administered Ativan right before intubating. She had vomitus noted on her face and mouth when she arrived. Labs show prerenal azotemia. Valproic acid is level is [address] brain showed no obvious intracranial injury. She is currently sedated with a Versed drip. She'll be admitted to the intensive care unit. The case discussed with Dr. Mita Guerra, who agreed to admit the patient to her service. Critical Care Narrative Aggregate critical care time was 45 minutes. Time to perform other separately billable procedures was not included in the critical care time. My time did not include minutes spent treating any other patients simultaneously or on activities that did not directly contribute to the patient's treatment. The services I provided to this patient were to treat and/or prevent clinically significant deterioration that could result in: I provided critical care services requiring my management, as noted below: Chart data review, documentation time, medication orders and management, vital sign assessments/reviewing monitor data, ordering and reviewing lab tests, ordering and interpreting/reviewing x-rays and diagnostic studies, care of the patient and discussion of the patient with the admitting physicians. Diagnosis Primary Impression: Status epilepticus Additional Impressions: Prerenal azotemia recent viral syndrome probable aspiration pneumonia Topher Eason MD Nov 08, 2017 16:54
[2017-11-08] MEDS: MIDAZOLAM 100 MG/100 ML INJ 100 ML IV PRN (16:57)
[2017-11-08] MEDS ORDERED: SODIUM CHLORIDE 0.9% FLUSH 10 ML FLUSH IVF PRN (17:00)
[2017-11-08 17:38] LABS: AUTOMATED NEUTROPHIL # 3.6 TH/MM3 (1.8-7.7); BASOPHIL % 0.6 % (0.0-2.0); EOSINOPHIL # 0.2 TH/MM3 (0-0.4); EOSINOPHIL % 2.7 % (0.0-4.0); HEMATOCRIT 42.2 % (35.0-46.0); LYMPH % 43.7 % (9.0-44.0); LYMPHOCYTE # 3.4 TH/MM3 (1.0-4.8); MEAN CORPUSCULAR HEMOGLOBIN 34.4 PG (27.0-34.0); MEAN CORPUSCULAR HGB CONC 33.1 % (32.0-36.0); MEAN PLATELET VOLUME 8.6 FL (7.0-11.0); MONO % 6.1 % (0.0-8.0); MONOCYTE # 0.5 TH/MM3 (0-0.9); NEUT % 46.9 % (16.0-70.0); PLATELET COUNT 217 TH/MM3 (150-450); RED BLOOD COUNT 4.06 MIL/MM3 (4.00-5.30); RED CELL DISTRIBUTION WIDTH 14.2 % (11.6-17.2); WHITE BLOOD COUNT 7.7 TH/MM3 (4.0-11.0)
[2017-11-08 17:39] LABS: BILIRUBIN, URINE NEG (NEG); BLOOD, URINE SMALL (NEG); GLUCOSE,URINE NEG (NEG); HYALINE CAST, URINE 4 /lpf (RARE); KETONE, URINE NEG (NEG); NITRITE,URINE NEG (NEG); RENAL EPITHELIAL CELLS <1 /hpf; SQUAMOUS EPITHELIAL CELL URINE <1 /hpf (0-5); URINE COLOR YELLOW (YELLW/STRAW); URINE LEUKOCYTE ESTERASE TRACE (NEG)
[2017-11-08 17:47] LABS: PROTHROMBIN TIME - PATIENT 9.8 SEC (9.8-11.6)
[2017-11-08 17:56] LABS: ALKALINE PHOSPHATASE 54 U/L (45-117); TOTAL BILIRUBIN ADULT 0.2 MG/DL (0.2-1.0)
[2017-11-08 18:00] LABS: ALT (GPT) 19 U/L (10-53); AST (GOT) 27 U/L (15-37); BICARBONATE 28.8 MEQ/L (21.0-32.0); BLOOD UREA NITROGEN 23 MG/DL (7-18); CHLORIDE 102 MEQ/L (98-107); CREATININE 0.94 MG/DL (0.50-1.00); GLOMERULAR FILTRATION RATE 59 ML/MIN (>89); GLUCOSE,RANDOM 146 MG/DL (74-106); SODIUM (NA) 137 MEQ/L (136-145)
[2017-11-08] MEDS ORDERED: MONT10TA4 PO (19:11)
[2017-11-08] MEDS ORDERED: EZET1TAB8 PO (19:11)
[2017-11-08] MEDS ORDERED: OXYB5TAB8 PO (19:11)
--- NOTE | 2017-11-08 19:13 | RADRPT ---
EXAM DATE/TIME: 11/08/2017 18:30 [facility] COMPARISON: CT BRAIN W/O CONTRAST, August 05, 2017, 15:55. INDICATIONS : Head pain due to seizure, status epilepticus. RADIATION DOSE: 36.62 CTDIvol (mGy) MEDICAL HISTORY : Seizures. Hypertension. SURGICAL HISTORY : Hysterectomy. Vented. ENCOUNTER: Initial ACUITY: 1 day PAIN SCALE: Non-responsive LOCATION: Bilateral cranial TECHNIQUE: Multiple contiguous axial images were obtained of the head. Using automated exposure control and adj ustment of the mA and/or kV according to patient size, radiation dose was kept as low as reasonably a chievable to obtain optimal diagnostic quality images. DICOM format image data is available electro nically for review and comparison. FINDINGS: CEREBRUM: Moderate diffuse cerebral volume loss. The ventricles are normal for degree of atrophy. No evidence of midline shift, mass lesion, hemorrhage or acute infarction. No extra-axial fluid collections are seen. POSTERIOR FOSSA: The cerebellum and brainstem are intact. The 4th ventricle is midline. The cerebellopontine angle i s unremarkable. EXTRACRANIAL: The visualized portion of the orbits is intact. SKULL: The calvaria is intact. No evidence of skull fracture. CONCLUSION: 1. No acute intracranial abnormality. Adin Sanchez MD on November 08, 2017 at 19:10 Board Certified Radiologist. This report was verified electronically.
[2017-11-08] MEDS ORDERED: LORazepam 2 MG/ML VIAL IV PUSH PRN (19:45)
[2017-11-08] MEDS ORDERED: LABETALOL HCL 100 MG/20 ML VIAL IV PUSH PRN (19:45)
[2017-11-08] MEDS ORDERED: ONDANSETRON HCL 4 MG/2 ML VIAL IV PUSH PRN (19:45)
[2017-11-08] MEDS ORDERED: ACETAMINOPHEN 325 MG TAB PO PRN (19:45)
[2017-11-08] MEDS ORDERED: RESP: ALBUTEROL 2.5 MG/3 ML NEB (PRN) INH (19:45)
[2017-11-08] MEDS ORDERED: CHLORHEXIDINE GLUCONATE 2 % 1 PACK (2 CLOTHS) TOP PRN (19:45)
[2017-11-08] MEDS ORDERED: MISCELLANEOUS NURSING INFORMATION XX SCH (19:45)
[2017-11-08] MEDS ORDERED: MAGNESIUM HYDROXIDE SUSP 30 ML CUP PO PRN (19:45)
[2017-11-08] MEDS ORDERED: LACTULOSE SYRUP 20 GM/30 ML CUP PO PRN (19:45)
[2017-11-08] MEDS ORDERED: SODIUM CHLORIDE 0.9% FLUSH 10 ML FLUSH IV FLUSH PRN (19:45)
[2017-11-08] MEDS ORDERED: SENNOSIDES 8.6 MG TAB PO PRN (19:45)
[2017-11-08] MEDS ORDERED: BISACODYL 10 MG SUPP RECTAL PRN (19:45)
[2017-11-08] MEDS: MONTELUKAST SODIUM 10 MG TAB PO SCH (19:47)
--- NOTE | 2017-11-08 19:48 | HHI.HP ---
HPI Service Critical Care Medicine Primary Care Physician Tye Wing MD Admission Diagnosis status epelipticus, dehydration Diagnosis: Travel History International Travel<30 Days: No Contact w/Intl Traveler <30 Da: No Traveled to Known Affected Are: No History of Present Illness 67 yo WF with PMH of seizure disorder, HTN, Hyperlipidemia, hypothyroidism, seasonal allergies, depression, GERD who presents to [facility] emergency department following a seizure. Her states that they laid down to take a nap and he was awoken when he felt her shaking in bed with tonic clonic activity. She vomited and he rolled her onto her left side. He estimates that seizure activity lasted for 15 minutes. When E GEOVANNI arrived reportedly her GCS was 3. Her sats were in the high 80s on room air. She was intubated in the field for airway protection following administration of Ativan and etomidate. Versed drip was initiated in the ED. CT brain showed no acute abnormality. Her states she was diagnosed with seizures "many years ago " and he states she was controlled for years. She was admitted after she was intubated for seizure on 08/05/17 which occurred while she was on depakote and had recently stopped topamax. Topamax was restarted during that admission and she was discharged on Topamax by her states it was later discontinued. She has been following up with Dr. Headley every few weeks for adjustment of her Depakote based on laboratory monitoring. He states she has been taking alternating doses of 1000 mg one morning and 500 mg the next morning with 500 mg nightly. He states he saw Dr. Headley earlier today and level was supratherapeutic (he states 132). She has been feeling well overall without complaints of headache or fever. She has had allergy symptoms and was started on an unknown antibiotic for "her sinuses" 2 days ago. Review of Systems ROS Limitations: Intubated, Altered Mental Status Past Family Social History Allergies: Coded Allergies: fluconazole (Unverified Allergy, Severe, 08/05/17) hydromorphone (Unverified Allergy, Severe, 08/05/17) levetiracetam (Unverified Allergy, Severe, Anaphylaxis, 08/05/17) rifampin (Unverified Allergy, Severe, 08/05/17) phenytoin (Unverified Allergy, Mild, Rash, 08/05/17) Past Medical History Hypertension Hyperlipidemia Hypothyroidism Seizure disorder Allergic rhinitis Glaucoma GERD Depression Overactive bladder Osteoporosis Past Surgical History Multiple knee surgeries (total of 12) Multiple back surgeries, bilateral Wells rods in place Right rotator cuff repair Reported Medications Ezetimibe 10 mg by mouth daily Singulair 10 mg by mouth daily Fluticasone 50 g 2 sprays each nostril daily Oxybutynin 10 mg by mouth every morning and 5 mg by mouth daily at bedtime Lisinopril 20 mill grams by mouth daily Aspirin 81 mg by mouth daily Depakote 1000 mg every other morning. 500 mg every other morning. 500 mg by mouth daily at bedtime. Pantoprazole 40 mill grams by mouth daily Venlafaxine 37.5 mg by mouth daily at bedtime Ambien 2.5 mg by mouth daily at bedtime Latanoprost 0.005% one drop each eye daily at bedtime Synthroid 75 g by mouth daily Family History Mother in her 90s. She had CHF. Father in his 80s Social History Smoked a pack of cigarettes per day for 10 years and quit 30 years ago Used to drink alcohol "fairly heavily" but was not drinking daily. She quit over 40 years ago. No illicit drug use Physical Exam Vital Signs Vital Signs Date Time Temp Pulse Resp B/P (MAP) Pulse Ox O2 Delivery O2 Flow Rate FiO2 11/08/17 19:00 65 14 183/98 (126) 100 Ventilator 100 11/08/17 18:20 100 100 11/08/17 16:50 14 100 Ventilator 100 11/08/17 16:45 14 100 Ventilator 11/08/17 16:35 97.8 85 14 158/89 (112) 100 Physical Exam Drips: Versed 5 mill grams per hour Pulse 60, normal sinus rhythm on the monitor blood pressure 183/98 sats 100% on mechanical ventilation GENERAL: Elderly female who is laying in ED stretcher. She has been on sedation with Versed. SKIN: Warm and dry, well perfused HEAD: Atraumatic. Normocephalic. EYES: Pupils equal and round, 2 mm reactive bilaterally. No scleral icterus. ENT: No nasal bleeding or discharge. Mucous membranes pink and moist. Neck is supple with no meningismus. NECK: Trachea midline. No JVD. CARDIOVASCULAR: Regular rate and rhythm, sinus rhythm on monitor. No murmurs rubs or gallops. RESPIRATORY: Synchronous with ventilator with no accessory muscle use. Occasional rhonchi on the left otherwise clear. No wheeze or Rales. GASTROINTESTINAL: Abdomen soft, nondistended. No apparent tenderness. Bowel sounds present. : Ardon in place with light yellow urine output MUSCULOSKELETAL: Extremities without clubbing, cyanosis, or edema. Scar overlying right shoulder is well-healed. NEUROLOGICAL: In ED eyes flutter open when stimulated and moves all extremities. Reexamined later in ICU and she opened eyes and followed commands with hand squeeze and moving feet bilaterally. Lifts both arms up off of bed. No apparent focal deficit. Laboratory Laboratory Tests Test 11/08/17 16:40 White Blood Count 7.7 Red Blood Count 4.06 Hemoglobin 14.0 Hematocrit 42.2 Mean Corpuscular Volume 104.0 Mean Corpuscular Hemoglobin 34.4 Mean Corpuscular Hemoglobin Concent 33.1 Red Cell Distribution Width 14.2 Platelet Count 217 Mean Platelet Volume 8.6 Neutrophils (%) (Auto) 46.9 Lymphocytes (%) (Auto) 43.7 Monocytes (%) (Auto) 6.1 Eosinophils (%) (Auto) 2.7 Basophils (%) (Auto) 0.6 Neutrophils # (Auto) 3.6 Lymphocytes # (Auto) 3.4 Monocytes # (Auto) 0.5 Eosinophils # (Auto) 0.2 Basophils # (Auto) 0.0 CBC Comment DIFF FINAL Differential Comment Prothrombin Time 9.8 Prothromb Time International Ratio 1.0 Activated Partial Thromboplast Time 22.2 Urine Color YELLOW Urine Turbidity CLEAR Urine pH 7.0 Urine Specific [place] 1.017 Urine Protein 30 Urine Glucose (UA) NEG Urine Ketones NEG Urine Occult Blood SMALL Urine Nitrite NEG Urine Bilirubin NEG Urine Urobilinogen LESS THAN 2.0 Urine Leukocyte Esterase TRACE Urine RBC 10 Urine WBC 3 Urine Squamous Epithelial Cells <1 Urine Renal Epithelial Cells <1 Urine Hyaline Casts 4 Blood Urea Nitrogen 23 Creatinine 0.94 Random Glucose 146 Total Protein 8.0 Albumin 4.0 Calcium Level 9.0 Alkaline Phosphatase 54 Aspartate Amino Transf (AST/SGOT) 27 Alanine Aminotransferase (ALT/SGPT) 19 Total Bilirubin 0.2 Sodium Level 137 Potassium Level 4.3 Chloride Level 102 Carbon Dioxide Level 28.8 Anion Gap 6 Estimat Glomerular Filtration Rate 59 Valproic Acid (Depakene) Level 80 Result Diagram: 11/08/17 1640 11/08/17 1640 Lionelrini VTE Risk Assessment Caprini VTE Risk Assessment: Mod/High Risk (score >= 2) Caprini Risk Assessment Model Point Value = 1 Point Value = 2 Point Value = 3 Point Value = 5 Age 41-60 Minor surgery BMI > 25 kg/m2 Swollen legs Varicose veins or History of unexplained or recurrent spontaneous Oral contraceptives or hormone replacement Sepsis (< 1 month) Serious lung disease, including pneumonia (< 1 month) Abnormal pulmonary function Acute myocardial infarction Congestive heart failure (< 1 month) History of inflammatory bowel disease Medical patient at bed rest Age 61-74 Arthroscopic surgery Major open surgery (> 45 min) Laparoscopic surgery (> 45 min) Malignancy Confined to bed (> 72 hours) Immobilizing plaster cast Central venous access Age >= 75 History of VTE Family history of VTE Factor V Leiden Prothrombin [id number] Lupus anticoagulant Anticardiolipin antibodies Elevated serum homocysteine Heparin-induced thrombocytopenia Other congenital or acquired thrombophilia Stroke (< 1 month) Elective arthroplasty Hip, pelvis, or leg fracture Acute spinal cord injury (< 1 month) Prophylaxis Regimen Total Risk Factor Score Risk Level Prophylaxis Regimen 0-1 Low Early ambulation 2 Moderate Order ONE of the following: *Sequential Compression Device (SCD) *Heparin 5000 units SQ BID 3-4 Higher Order ONE of the following medications: *Heparin 5000 units SQ TID *Enoxaparin/Lovenox 40 mg SQ daily (WT < 150 kg, CrCl > 30 mL/min) *Enoxaparin/Lovenox 30 mg SQ daily (WT < 150 kg, CrCl > 10-29 mL/min) *Enoxaparin/Lovenox 30 mg SQ BID (WT < 150 kg, CrCl > 30 mL/min) AND/OR *Sequential Compression Device (SCD) 5 or more Highest Order ONE of the following medications: *Heparin 5000 units SQ TID (Preferred with Epidurals) *Enoxaparin/Lovenox 40 mg SQ daily (WT < 150 kg, CrCl > 30 mL/min) *Enoxaparin/Lovenox 30 mg SQ daily (WT < 150 kg, CrCl > 10-29 mL/min) *Enoxaparin/Lovenox 30 mg SQ BID (WT < 150 kg, CrCl > 30 mL/min) AND *Sequential Compression Device (SCD) Assessment and Plan Assessment and Plan NEURO: Status epilepticus Seizure disorder Depression Was on Versed drip alone in the emergency department but she still had some agitation and hypertension so used propofol for sedation while also using some versed to ensure seizure suppression. Versed drip lowered dose to 2mg /hr and she is following commands without clinical seizure activity. Depakote level is 80. Will continue Depakote 500 mg IV every 12. She has reported allergy (anaphylaxis) to keppra and rash from dilantin. Will follow-up neurology recommendations regarding anticonvulsant Hold venlafaxine which can lower seizure threshold. CT brain 11/08no acute abnormality Follow-up EEG and MRI. Check ammonia level Neurology consult OPHTHO: Glaucoma Latanoprost 0.005% one drop each eye daily at bedtime RESP: Acute respiratory failure Aspiration Remote history of tobacco abuse Intubated in field for airway protection and had emesis in airway upon intubation. Ventilator bundle Chest x-ray shows satisfactory endotracheal tube position. Small left basilar infiltrate. Albuterol neb as needed CV: Hypertension Hyperlipidemia Continue lisinopril 20 mg by mouth daily Continue Zetia 10 mg by mouth daily GI: GERD Elevated lipase of unclear significance Will recheck lipase and reassess clinically once alert. Protonix 40 month grams IV daily for stress ulcer prophylaxis and history of GERD. Bowel regimen FEN/RENAL: Ardon in place. Monitor intake and output. Monitor electrolytes. Replace electrolytes per ICU electrolyte replacement protocol. ID: Aspiration pneumonitis She is afebrile with no leukocytosis. Likely chemical pneumonitis due to aspiration, hold off on addition of antibiotics at this time. She reportedly was started on an outpatient antibiotic 2 days ago for her sinuses. She took her antibiotic already today. This antibiotic course could be continued when goes home and determines what abx she was on. Allergic rhinitis Hold home Flonase. On singulair 10 mg by mouth daily at bedtime HEME: Erythrocyte macrocytosis. Check B 12/folate ENDO: Hypothyroidism TSH levels not clinically useful following acute seizure. She has been asymptomatic so will continue her home dose of Synthroid 75 g by mouth daily. MSK: Osteoporosis On Fosamax at home. Hold. PROPH: Lovenox 40 mg subcutaneous daily for DVT prophylaxis. Protonix 40 mg IV daily for stress ulcer prophylaxis and history of GERD on PPI at home. ACCESS: Peripheral IV providing adequate access at this time. and son updated at bedside. Discussed with Dr. Eason. Full code Level III H&P Mita Guerra MD Nov 08, 2017 19:48
[2017-11-08] MEDS ORDERED: hydrALAZINE HCL 20 MG/ML VIAL IV PUSH ONE (20:00)
[2017-11-08] MEDS: PROPOFOL 1000 MG/100 ML INJ 100 ML IV PRN ×2 (20:11→21:01)
[2017-11-08] MEDS: SODIUM CHLOR 0.9% 1000 ML INJ 1,000 ML IV SCH (20:16)
--- NOTE | 2017-11-08 20:28 | RADRPT ---
EXAM DATE/TIME: 11/08/2017 19:43 [facility] COMPARISON: CHEST SINGLE AP, August 05, 2017, 16:41. INDICATIONS : Post intubation. Aspiration. MEDICAL HISTORY : Seizures. Hypertension. SURGICAL HISTORY : Hysterectomy. ENCOUNTER: Initial ACUITY: 1 day PAIN SCORE: Non-responsive. LOCATION: Bilateral chest FINDINGS: ETT at the level of the clavicles. NGT coiled in the stomach. Mild diffuse interstitial prominence. A irspace consolidation in the lower lobes, more prominently at the left lung base. Cardiomediastinal c ontours are within normal limits. Bony thorax is intact. CONCLUSION: 1. ETT in good position. NGT in the stomach. 2. Bilateral lower lung zone airspace disease, more prominently at the left lung base. Findings are c onsistent with clinically suspected aspiration. Adin Sanchez MD on November 08, 2017 at 20:25 Board Certified Radiologist. This report was verified electronically.
[2017-11-08] MEDS: RESP: ALBUTEROL 2.5 MG/IPRATROPIUM 0.5 MG NEB (SCH) INH (20:41)
[2017-11-08] MEDS ORDERED: FAMOTIDINE 20 MG/2 ML VIAL IV PUSH SCH (21:00)
[2017-11-09] VITALS (21 sets, daily range): BP systolic 135–174; BP diastolic 64–75; PULSE 67–100; RESP 14–20; TEMP 97.8–100.7; O2SAT 96–100
[2017-11-09] MEDS: FAMOTIDINE 20 MG TAB PO SCH ×2 (00:12→11:21)
[2017-11-09] MEDS: MONTELUKAST SODIUM 10 MG TAB PO SCH ×2 (00:12→21:06)
[2017-11-09] MEDS: SODIUM CHLORIDE 0.9% FLUSH 10 ML FLUSH IV FLUSH SCH ×3 (00:12→21:15)
[2017-11-09] MEDS: DOCUSATE SODIUM 50 MG/SENNA 8.6 MG TAB PO SCH ×3 (00:12→21:06)
[2017-11-09] MEDS ORDERED: POTASSIUM CHLORIDE 25 MEQ EFFERVESCENT TAB PO PRN (02:30)
[2017-11-09] MEDS ORDERED: DEXTROSE 50% IN WATER 50 ML VIAL(D50) IV PUSH PRN (02:30)
[2017-11-09] MEDS ORDERED: MAGNESIUM SULFATE INJ 2 GM in SODIUM CHLORIDE 0.9% INJ 96 ML IV PRN (02:30)
[2017-11-09] MEDS ORDERED: MAGNESIUM SULFATE INJ 4 GM in SODIUM CHLORIDE 0.9% INJ 92 ML IV PRN (02:30)
[2017-11-09] MEDS ORDERED: POTASSIUM CHLOR 40 MEQ PREMIX 100 ML IV PRN ×2 (02:30)
[2017-11-09] MEDS ORDERED: POTASSIUM PHOSPHATE MONOBASIC 500 MG TAB PO PRN (02:30)
[2017-11-09] MEDS ORDERED: GLUCAGON 1 MG/ML VIAL OTHER PRN (02:30)
[2017-11-09] MEDS ORDERED: SODIUM PHOSPHATE INJ 30 MMOL in SODIUM CHLOR 0.9% 250 ML INJ 240 ML IV PRN (02:30)
[2017-11-09] MEDS ORDERED: POTASSIUM PHOSPHATE INJ 30 MMOL in SODIUM CHLOR 0.9% 250 ML INJ 250 ML IV PRN (02:30)
[2017-11-09] MEDS ORDERED: POTASSIUM CHLOR 20 MEQ PREMIX 100 ML IV PRN ×2 (02:30)
[2017-11-09] MEDS ORDERED: POTASSIUM PHOSPHATE MONOBASIC 500 MG TAB PO/TUBE PRN (02:30)
[2017-11-09] MEDS ORDERED: MAGNESIUM OXIDE 400 MG TAB PO PRN (02:30)
[2017-11-09] MEDS ORDERED: fentaNYL DRIP 250 ML IV PRN (02:45)
[2017-11-09] MEDS: INSULIN ASPART SUPPLEMENTAL SCALE SQ SCH ×4 (03:00→21:00)
[2017-11-09] MEDS ORDERED: RESP: ALBUTEROL 2.5 MG/3 ML NEB (PRN) NEB (03:45)
[2017-11-09] MEDS: CHLORHEXIDINE GLUCONATE 2 % 1 PACK (2 CLOTHS) TOP SCH (04:00)
[2017-11-09] MEDS: RESP: ALBUTEROL 2.5 MG/IPRATROPIUM 0.5 MG NEB (SCH) INH ×3 (04:27→15:22)
[2017-11-09 04:46] LABS: AUTOMATED NEUTROPHIL # 8.3 TH/MM3 (1.8-7.7); BASOPHIL % 0.4 % (0.0-2.0); EOSINOPHIL # 0.1 TH/MM3 (0-0.4); EOSINOPHIL % 0.7 % (0.0-4.0); HEMATOCRIT 39.3 % (35.0-46.0); HEMOGLOBIN 12.9 GM/DL (11.6-15.3); LYMPH % 15.9 % (9.0-44.0); LYMPHOCYTE # 1.8 TH/MM3 (1.0-4.8); MEAN CELL VOLUME 102.7 FL (80.0-100.0); MEAN CORPUSCULAR HEMOGLOBIN 33.8 PG (27.0-34.0); MEAN CORPUSCULAR HGB CONC 32.9 % (32.0-36.0); MONOCYTE # 0.9 TH/MM3 (0-0.9); PLATELET COUNT 152 TH/MM3 (150-450); RED BLOOD COUNT 3.83 MIL/MM3 (4.00-5.30); RED CELL DISTRIBUTION WIDTH 14.3 % (11.6-17.2); WHITE BLOOD COUNT 11.1 TH/MM3 (4.0-11.0)
[2017-11-09 05:03] LABS: BICARBONATE 27.2 MEQ/L (21.0-32.0); BLOOD UREA NITROGEN 19 MG/DL (7-18); CALCIUM 8.4 MG/DL (8.5-10.1); CHLORIDE 103 MEQ/L (98-107); CREATININE 0.69 MG/DL (0.50-1.00); GLOMERULAR FILTRATION RATE 85 ML/MIN (>89); GLUCOSE,RANDOM 124 MG/DL (74-106); SODIUM (NA) 138 MEQ/L (136-145)
[2017-11-09 05:35] LABS: FOLATE GREATER THAN 20.0 NG/ML (3.1-17.5)
--- NOTE | 2017-11-09 05:41 | HHI.CCPN ---
Subjective Remarks/Hospital Course 67 yo WF with PMH of seizure disorder, HTN, Hyperlipidemia, hypothyroidism, seasonal allergies, depression, GERD who presents to [facility] emergency department following a seizure. Her states that they laid down to take a nap and he was awoken when he felt her shaking in bed with tonic clonic activity. She vomited and he rolled her onto her left side. He estimates that seizure activity lasted for 15 minutes. When E GEOVANNI arrived reportedly her GCS was 3. Her sats were in the high 80s on room air. She was intubated in the field for airway protection following administration of Ativan and etomidate. Versed drip was initiated in the ED. CT brain showed no acute abnormality. Her states she was diagnosed with seizures "many years ago " and he states she was controlled for years. She was admitted after she was intubated for seizure on 08/05/17 which occurred while she was on depakote and had recently stopped topamax. Topamax was restarted during that admission and she was discharged on Topamax by her states it was later discontinued. She has been following up with Dr. Headley every few weeks for adjustment of her Depakote based on laboratory monitoring. He states she has been taking alternating doses of 1000 mg one morning and 500 mg the next morning with 500 mg nightly. He states he saw Dr. Headley earlier today and level was supratherapeutic (he states 132). She has been feeling well overall without complaints of headache or fever. She has had allergy symptoms and was started on an unknown antibiotic for "her sinuses" 2 days ago. Subjective 11/09: Blood pressure remained low overnight. Plan for comparison withdrawal per RN. Objective Vital Signs Date Time Temp Pulse Resp B/P (MAP) Pulse Ox O2 Delivery O2 Flow Rate FiO2 11/09/17 04:27 100 40 11/09/17 00:00 97.8 67 14 174/75 (108) 11/08/17 20:10 Ventilator Result Diagram: 11/09/1741911/09/17419 Imaging Last Impressions Chest X-Ray 11/08/171903 Signed Impressions: Service Date/Time: Monday, November 08, 2017 19:43 - CONCLUSION: 1. ETT in good position. NGT in the stomach. 2. Bilateral lower lung zone airspace disease, more prominently at the left lung base. Findings are consistent with clinically suspected aspiration. Adin Sanchez MD Head CT 11/08/17 0000 Signed Impressions: Service Date/Time: Wednesday, November 08, 2017 18:30 - CONCLUSION: 1. No acute intracranial abnormality. Adin Sanchez MD Objective Remarks GENERAL: 67-year-old female, resting in bed responsive SKIN: Warm and dry, well perfused HEAD: Atraumatic. Normocephalic. EYES: Pupils equal and round, 2 mm reactive bilaterally. No scleral icterus. ENT: No nasal bleeding or discharge. Mucous membranes pink and moist. Neck is supple with no meningismus. NECK: Trachea midline. No JVD. CARDIOVASCULAR: RRR. S1, S2. No S4. RESPIRATORY: Few coarse crackles appreciated bilaterally anteriorly. No wheezes. GASTROINTESTINAL: Abdomen soft, nondistended. No apparent tenderness. Bowel sounds present. : Ardon in place with light yellow urine output MUSCULOSKELETAL: Extremities without clubbing, cyanosis, or edema. Scar overlying right shoulder is well-healed. NEUROLOGICAL: In illness 2 through 12 grossly intact. Strength is equal and symmetric. A/P Assessment and Plan NEURO: Status epilepticus Seizure disorder Depression Was on Versed drip alone in the emergency department but she still had some agitation and hypertension so used propofol for sedation while also using some versed to ensure seizure suppression. Versed drip lowered dose to 2mg /hr and she is following commands without clinical seizure activity. Depakote level is 80. Will continue Depakote 500 mg IV every 12. She has reported allergy (anaphylaxis) to keppra and rash from dilantin. Will follow-up neurology recommendations regarding anticonvulsant Hold venlafaxine which can lower seizure threshold. CT brain 11/08no acute abnormality Follow-up EEG and MRI. Check ammonia level Neurology consult OPHTHO: Glaucoma Latanoprost 0.005% one drop each eye daily at bedtime RESP: Acute respiratory failure Aspiration Remote history of tobacco abuse Intubated in field for airway protection and had emesis in airway upon intubation. Ventilator bundle Chest x-ray shows satisfactory endotracheal tube position. Small left basilar infiltrate. Albuterol neb as needed CV: Hypertension Hyperlipidemia Continue lisinopril 20 mg by mouth daily Continue Zetia 10 mg by mouth daily GI: GERD Elevated lipase of unclear significance Will recheck lipase and reassess clinically once alert. Protonix 40 month grams IV daily for stress ulcer prophylaxis and history of GERD. Bowel regimen FEN/RENAL: Ardon in place. Monitor intake and output. Monitor electrolytes. Replace electrolytes per ICU electrolyte replacement protocol. ID: Aspiration pneumonitis She is afebrile with no leukocytosis. Likely chemical pneumonitis due to aspiration, hold off on addition of antibiotics at this time. She reportedly was started on an outpatient antibiotic 2 days ago for her sinuses. She took her antibiotic already today. This antibiotic course could be continued when goes home and determines what abx she was on. Allergic rhinitis Hold home Flonase. On singulair 10 mg by mouth daily at bedtime HEME: Erythrocyte macrocytosis. Check B 12/folate ENDO: Hypothyroidism TSH levels not clinically useful following acute seizure. She has been asymptomatic so will continue her home dose of Synthroid 75 g by mouth daily. MSK: Osteoporosis On Fosamax at home. Hold. PROPH: Lovenox 40 mg subcutaneous daily for DVT prophylaxis. Protonix 40 mg IV daily for stress ulcer prophylaxis and history of GERD on PPI at home. ACCESS: Peripheral IV providing adequate access at this time. Full code Level II follow-up Tonny Lomeli MD Nov 09, 2017 05:41
[2017-11-09] MEDS ORDERED: VALPROATE INJ 500 MG in SODIUM CHLORIDE 0.9% INJ 100 ML IV SCH (06:00)
[2017-11-09] MEDS: LEVOTHYROXINE SODIUM 75 MCG TAB PO SCH (06:46)
[2017-11-09] MEDS: CHLORHEXIDINE 0.12% (ORAL KIT) 15 ML CUP MT SCH ×2 (08:00→21:08)
[2017-11-09] MEDS ORDERED: PANTOPRAZOLE SODIUM 40 MG VIAL IV PUSH SCH (09:00)
[2017-11-09] MEDS: ASPIRIN EC 81 MG TABEC PO SCH (09:00)
--- NOTE | 2017-11-09 09:57 | MB ---
cc: EMILY SKY M.D. DATE OF CONSULTATION 11/09/2017 REASON FOR CONSULTATION Seizure. HISTORY OF PRESENT ILLNESS Ms. Márquez is a pleasant 67-year-old woman with a long history of generalized seizure disorder. She is on Depakote. In the past she was on a dose of 1000 mg in the morning, 500 mg in the evening. Her level was high at 132. She was decreased with her dose to 1000 mg in the morning alternating with 500 mg the next morning and alternate days with 500 mg every night. Her last level about a week ago was therapeutic at about 85. I saw her in my office yesterday. The patient was stable, has had no recurrent seizures on the current dose of Depakote. The last seizure was in July. Yesterday while laying down to take a nap, she developed a generalized tonic-clonic seizure. EVAC was called. Initial GCS was 3. She is now intubated. She has had no recurrent seizures, and her valproic acid level was therapeutic at 80 yesterday. She was on Topamax in the past which was discontinued. PAST MEDICAL HISTORY 1. History of seizure disorder. 2. Hypertension. 3. Hypothyroidism. 4. Glaucoma. 5. GERD. 6. Depression. 7. Overactive bladder. 8. Knee surgeries. 9. Lumbar surgery. 10. Right rotator cuff repair. ALLERGIES KEPPRA. RIFAMPIN. PHENYTOIN. FLUCONAZOLE. HYDROMORPHONE. MEDICATIONS AT HOME 1. Ezetimibe 10 mg daily. 2. Singulair 10 mg daily. 3. Fluticasone 50 mcg nasal spray. 4. Oxybutynin 10 mg in the morning, 5 mg at night. 5. Lisinopril 20 mg daily. 6. Aspirin 81 mg daily. 7. Depakote 1000 mg alternating with 500 mg every other morning and 500 mg every night. 8. Pantoprazole 40 mg daily. 9. Venlafaxine 3.75 mg daily. 10. Ambien 2.5 mg at night. 11. Latanoprost eye drops. 12. Synthroid 75 mcg daily. SOCIAL HISTORY She quit alcohol 40 years ago. She quit smoking 30 years ago. NEUROLOGICAL EXAMINATION VITAL SIGNS: Blood pressure is 174/75, pulse is 99, respirations are 16, temperature is 100 degrees. HIGHER CORTICAL FUNCTION: She is sedated, unresponsive. CRANIAL NERVES: Pupils 2 mm, symmetric and reactive to light. The extraocular movements are intact. MOTOR EXAM: She has no spontaneous limb movement. She does withdrawn the lower extremities to tactile stimulation. REFLEXES: Symmetric. IMAGING STUDIES CT of the brain unremarkable. LABORATORY DATA The valproic acid level yesterday was 80. White count 11,100, hemoglobin 12.9, hematocrit 39%, platelet count 152,000. PT 9.1, INR 1, APTT 22.2. Sodium is 138, potassium 4.2, chloride 103, CO2 27. BUN is 19, creatinine 0.69, GFR is 85, glucose 124. B12 437. Urinalysis - the pH is 7, specific gravity 1.017, protein is 30, RBC is 10. WBCs 3. IMPRESSION Recurrent seizure. RECOMMENDATIONS 1. Continue Depakote at the current dose. 2. We will also resume Topamax, 50 mg t.i.d. We 3. will also check EEG. MD FERMIN Yadav/ANGELICA /9:18 AM /9:24 AM
[2017-11-09] MEDS: EZETIMIBE 10 MG TAB PO SCH (11:21)
[2017-11-09] MEDS: LISINOPRIL 20 MG TAB PO SCH (11:21)
[2017-11-09] MEDS: SODIUM CHLOR 0.9% 1000 ML INJ 1,000 ML IV SCH (11:22)
[2017-11-09] MEDS: TOPIRAMATE 25 MG TAB PO SCH ×3 (11:34→21:06)
--- NOTE | 2017-11-09 13:21 | RADRPT ---
EXAM DATE/TIME: 11/09/2017 12:08 [facility] COMPARISON: MRI BRAIN W/O CONTRAST, August 12, 2017, 12:04. INDICATIONS : Seizures. MEDICAL HISTORY : Hypertension. Hypothyroidism. Gastroesophageal reflux disease. SURGICAL HISTORY : Rotator cuff, right. Hysterectomy. Wells rods, knee repair ENCOUNTER: Subsequent ACUITY: 2 day PAIN SCORE: Nonresponsive. LOCATION: cranial TECHNIQUE: Multiplanar, multisequence MRI of the brain was performed without contrast. FINDINGS: The brain is stable in appearance. Enlargement of the CSF spaces especially the lateral ventricles is stable. There is no evidence of restricted diffusion, acute hemorrhage, mass effect or edema. CONCLUSION: Stable MRI of the brain demonstrating generalized volume loss with enlargement of the ventricles but no evidence of acute infarct, hemorrhage, mass or edema. Ken Avila MD on November 09, 2017 at 13:17 Board Certified Radiologist. This report was verified electronically.
--- NOTE | 2017-11-09 13:49 | MG ---
cc: ROSSY SEGURA M.D. Lab No: [id number] Date: 11/08/2017 Age: 67 Sex: F Race: ___ DATE OF [address] Guerra TECHNIQUE In room 510 with photic stimulation on 2 mg Versed, 10 micrograms of propofol that were apparently stopped at 08:48 four minutes after the study had started. INDICATIONS The patient is intubated, CT had no acute findings. The patient apparently had a 15 minute seizure at home with a history of seizures, hypertension, hyperlipidemia, asthma, snoring, head trauma. MEDICATIONS 1. Synthroid 2. Depakote 3. Protonix 4. Albuterol DESCRIPTION OF RECORD The patient has an overall background of faster frequency sometimes beta frequency to the lower frequencies of theta. It is noted that she is intubated, but overall there is at times a normal alpha rhythm. Faster frequency can be seen with medication effects. There is no epileptic activity. Some artifact is seen. Photic stimulation is initiated at the end of the study with a positive posterior driving response. Stimulation of her extremities with more movement. She was asked to squeeze and she did mildly squeeze the civil engineering technician's hands. IMPRESSION Some faster frequency waves such as beta are seen at times with normal alpha and may be due to medicine effect, benzos etc., but no gross epileptiform features. Clinical correlation. MD MAURY Ballard/HAILY /1:04 PM /1:15 PM
[2017-11-09] MEDS: VALPROATE INJ 500 MG in SODIUM CHLORIDE 0.9% INJ 100 ML IV SCH (15:04)
[2017-11-09] MEDS: PROPOFOL 1000 MG/100 ML INJ 100 ML IV PRN (15:04)
[2017-11-09] MEDS: MIDAZOLAM 100 MG/100 ML INJ 100 ML IV PRN (15:05)
[2017-11-09] MEDS ORDERED: LABETALOL HCL 100 MG/20 ML VIAL IV PUSH PRN (16:30)
[2017-11-09] MEDS ORDERED: ACETAMINOPHEN 650 MG/20.3 ML UDC PO PRN (16:30)
[2017-11-09] MEDS ORDERED: hydrALAZINE HCL 20 MG/ML VIAL IV PUSH PRN (16:30)
--- NOTE | 2017-11-09 16:40 | HHI.CCPN ---
Subjective Remarks/Hospital Course 67 yo WF with PMH of seizure disorder, HTN, Hyperlipidemia, hypothyroidism, seasonal allergies, depression, GERD who presents to [facility] emergency department following a seizure. Her states that they laid down to take a nap and he was awoken when he felt her shaking in bed with tonic clonic activity. She vomited and he rolled her onto her left side. He estimates that seizure activity lasted for 15 minutes. When E GEOVANNI arrived reportedly her GCS was 3. Her sats were in the high 80s on room air. She was intubated in the field for airway protection following administration of Ativan and etomidate. Versed drip was initiated in the ED. CT brain showed no acute abnormality. Her states she was diagnosed with seizures "many years ago " and he states she was controlled for years. She was admitted after she was intubated for seizure on 08/05/17 which occurred while she was on depakote and had recently stopped topamax. Topamax was restarted during that admission and she was discharged on Topamax by her states it was later discontinued. She has been following up with Dr. Headley every few weeks for adjustment of her Depakote based on laboratory monitoring. He states she has been taking alternating doses of 1000 mg one morning and 500 mg the next morning with 500 mg nightly. He states he saw Dr. Headley earlier today and level was supratherapeutic (he states 132). She has been feeling well overall without complaints of headache or fever. She has had allergy symptoms and was started on an unknown antibiotic for "her sinuses" 2 days ago. Subjective 11/09: Tmax 100.7. Currently 100. Currently sedated on midazolam drip at 2 mg now on propofol drip at 10 mics grams per kilogram per minute. MRI brain showed no acute intrarenal findings/EEG showed no epileptiform activity. Hemodynamically stable. Objective Vital Signs Date Time Temp Pulse Resp B/P (MAP) Pulse Ox O2 Delivery O2 Flow Rate FiO2 11/09/17 15:24 100 40 11/09/17 14:00 100 11/09/17 12:00 100.0 20 136/67 (90) 11/08/17 20:10 Ventilator Intake and Output 11/09/17 11/09/17 11/10/17 08:00 16:00 00:00 Intake Total 894 ml 1100 ml Output Total 850 ml Balance 44 ml 1100 ml Result Diagram: 11/09/17 0420 11/09/17 0420 Imaging Last Impressions Brain MRI 11/09/17 0000 Signed Impressions: Service Date/Time: October 12:08 - CONCLUSION: Stable MRI of the brain demonstrating generalized volume loss with enlargement of the ventricles but no evidence of acute infarct, hemorrhage, mass or edema. Ken Avila MD Chest X-Ray 11/08/17 190 Signed Impressions: Service Date/Time: Wednesday, November 08, 2017 19:43 - CONCLUSION: 1. ETT in good position. NGT in the stomach. 2. Bilateral lower lung zone airspace disease, more prominently at the left lung base. Findings are consistent with clinically suspected aspiration. Adin Sanchez MD Head CT 11/08/17 0000 Signed Impressions: Service Date/Time: Wednesday, November 08, 2017 18:30 - CONCLUSION: 1. No acute intracranial abnormality. Adin Sanchez MD Objective Remarks GENERAL: 67-year-old female, resting in bed in no acute distress orotracheally intubated SKIN: Warm and dry, well perfused HEAD: Atraumatic. Normocephalic. EYES: Pupils equal and round, 2 mm reactive bilaterally. No scleral icterus. ENT: No nasal bleeding or discharge. Mucous membranes pink and moist. Neck is supple with no meningismus. NECK: Trachea midline. No JVD. CARDIOVASCULAR: RRR. S1, S2. No S4. RESPIRATORY: Few coarse crackles appreciated bilaterally anteriorly. No wheezes. GASTROINTESTINAL: Abdomen soft, nondistended. No apparent tenderness. Bowel sounds present. : Ardon in place with light yellow urine output MUSCULOSKELETAL: Extremities without clubbing, cyanosis, or edema. Scar overlying right shoulder is well-healed. NEUROLOGICAL: Cranial nerves 2 through 12 grossly intact. Positive gag. Withdraws to pain in all 4 extremity's. Currently sedated on midazolam and propofol Urinary Catheter: Yes Assessment to: Continue Ardon insert reason: Prolonged Immobilization Vascular Central Line Catheter: No Assessment to: Continue A/P Assessment and Plan NEURO/PSYCH: Status epilepticus Seizure disorder NOS Depression NOS Glaucoma Allergic rhinitis Patient is currently on midazolam at 2 mg an hour and propofol drip at 10 mics grams per kilogram per minute per sedation/analgesia while intubated Goal of RASS 0 Daily sedation vacation Valproic acid level is [address]. [address] Headley /neurology Currently on valproic acid 500 mg IV every 8 hours and topiramate 50 mg by tube every 8 hours Recheck valproic acid in a.m. 11/10 Hold venlafaxine 37.5 mg daily which can lower seizure threshold. CT brain 11/08 - no acute abnormality MRI brain 11/09 revealed dilated ventricles otherwise no acute intracranial findings EEG 11/09 revealed no epileptiform activity Check ammonia level - 39 Artificial tears 1 gtt OU 3 times a day Continue latanoprost 0.005% 1 drop each eye at night for glaucoma Holding bimatoprost 0.01% Currently holding fluticasone spray 50 mcg and montelukast 10 mg daily for allergic rhinitis RESP: Acute respiratory failure - aspiration Remote history of tobacco abuse [facility] /11/17/39 Ventilator bundle Albuterol/ipratropium aerosols every 6 hours with albuterol aerosols every 2 hours as needed dyspnea Spontaneous breathing trials when clinically indicated Chest x-ray shows satisfactory endotracheal tube position. Small left basilar infiltrate. CV: Hypertension Hyperlipidemia Currently on normal saline at 84 cc an hour Continue aspirin 81 mg by mouth daily Continue lisinopril 20 mg by mouth daily for hypertension Continue Ezetimibe 10 mg by mouth daily for dyslipidemia As needed labetalol/hydralazine for hypertension GI: GERD Elevated lipase of unclear significance Elevated ammonia Will recheck lipase and reassess clinically once alert. Lansoprazole 30 mg by tube daily for GI prophylaxis Docusate sodium/senna 1 tablet twice a day for bowel regimen Added lactulose 30 cc daily for elevated ammonia Initiate trickle feeds with Vital 1.5 goal 20 cc a day FEN/RENAL/: Urinary incontinence Currently holding oxybutynin 10 mg daily Maintain Ardon in place. Monitor intake and output. Monitor electrolytes. Replace electrolytes per ICU electrolyte replacement protocol. ID: Aspiration pneumonitis She is afebrile with no leukocytosis. Likely chemical pneumonitis due to aspiration, hold off on addition of antibiotics at this time. She reportedly was started on an outpatient antibiotic 2 days ago for her sinuses. She took her antibiotic already 11/08 - CEFDINIR [address] brain/head revealed no signs of sinusitis. Since patient is currently febrile I will pancultured including blood cultures x2 sputum and urine and influenza currently Start empirically on piperacillin/tazobactam HEME: Erythrocyte macrocytosis. Check B 12/folate - WNL Check TSH with erythrocytosis and peripheral smear No indication for transfusion of blood products at this time ENDO: Hypothyroidism Hyperglycemia Continue levothyroxine 75 g by mouth daily. Check TSH Sliding-scale insulin with Novulog with Accu-Cheks every 6 hours to maintain euglycemia/low regimen MSK: Osteoporosis Elevated BMI Alendronate unknown dosage at home. Hold. PT evaluate and treat Weight loss will be encouraged PROPH: Enoxaparin 40 mg subcutaneous daily for DVT prophylaxis. Lansoprazole 30 mg daily for stress ulcer prophylaxis and history of GERD on PPI at home. ACCESS: Peripheral IV providing adequate access at this time. Level II follow-up Tonny Lomeli MD Nov 09, 2017 16:40
[2017-11-09] MEDS ORDERED: VANCOMYCIN INJ 1,000 MG in SODIUM CHLOR 0.9% 250 ML INJ 250 ML IV ONE (18:00)
[2017-11-09] MEDS: PIPERACIL-TAZO 4.5 GM PREMIX 100 ML IV SCH (18:02)
[2017-11-09] MEDS: RESP: ALBUTEROL 2.5 MG/IPRATROPIUM 0.5 MG NEB (SCH) NEB (20:12)
[2017-11-09] MEDS: ENOXAPARIN SODIUM 40 MG/0.4 ML SYRINGE SQ SCH (21:06)
[2017-11-09] MEDS: LATANOPROST 0.005% OPHT SOLN 2.5 ML BTL EACH EYE SCH (21:15)
--- NOTE | 2017-11-09 23:04 | EKG ---
Date Performed: 11/08/2017 Time Performed: 19:52:27 PTAGE: 67 years EKG: Sinus rhythm LEFT VENTRICULAR HYPERTROPHY AND ST-T CHANGE ABNORMAL ECG PREVIOUS TRACING : 11/08/2017 16.35 Compared to prior tracing no significant change DOCTOR: Rene Johnson Interpretating Date/Time 11/09/2017 23:02:53
--- NOTE | 2017-11-09 23:15 | EKG ---
Date Performed: 11/08/2017 Time Performed: 16:35:52 PTAGE: 67 years EKG: Sinus rhythm NONSPECIFIC ST & T-WAVE ABNORMALITY ABNORMAL ECG PREVIOUS TRACING : 08/05/2017 15.50 Compared to the previous tracing sinus tachycardia is no lo nger present DOCTOR: Rene Johnson Interpretating Date/Time 11/09/2017 23:13:05
[2017-11-10] VITALS (18 sets, daily range): BP systolic 127–159; BP diastolic 61–78; PULSE 80–98; RESP 14–16; TEMP 99.2–100; O2SAT 95–100
[2017-11-10] MEDS: INSULIN ASPART SUPPLEMENTAL SCALE SQ SCH ×4 (03:00→20:31)
[2017-11-10] MEDS: CHLORHEXIDINE GLUCONATE 2 % 1 PACK (2 CLOTHS) TOP SCH (04:00)
[2017-11-10] MEDS: RESP: ALBUTEROL 2.5 MG/IPRATROPIUM 0.5 MG NEB (SCH) NEB ×4 (04:15→21:29)
[2017-11-10 05:09] LABS: AUTOMATED NEUTROPHIL # 8.7 TH/MM3 (1.8-7.7); BASOPHIL % 0.3 % (0.0-2.0); EOSINOPHIL # 0.1 TH/MM3 (0-0.4); EOSINOPHIL % 0.8 % (0.0-4.0); HEMATOCRIT 37.4 % (35.0-46.0); HEMOGLOBIN 12.3 GM/DL (11.6-15.3); LYMPH % 12.1 % (9.0-44.0); LYMPHOCYTE # 1.3 TH/MM3 (1.0-4.8); MEAN CELL VOLUME 103.3 FL (80.0-100.0); MEAN CORPUSCULAR HEMOGLOBIN 33.8 PG (27.0-34.0); MEAN CORPUSCULAR HGB CONC 32.8 % (32.0-36.0); MEAN PLATELET VOLUME 8.4 FL (7.0-11.0); MONO % 8.6 % (0.0-8.0); NEUT % 78.2 % (16.0-70.0); PLATELET COUNT 139 TH/MM3 (150-450); RED BLOOD COUNT 3.62 MIL/MM3 (4.00-5.30); WHITE BLOOD COUNT 11.2 TH/MM3 (4.0-11.0)
[2017-11-10 05:35] LABS: ALBUMIN 2.6 GM/DL (3.4-5.0); AMYLASE 35 U/L (25-115); AST (GOT) 9 U/L (15-37); BICARBONATE 24.3 MEQ/L (21.0-32.0); BLOOD UREA NITROGEN 12 MG/DL (7-18); CHLORIDE 109 MEQ/L (98-107); CHOLESTEROL 152 MG/DL (120-200); CREATININE 0.65 MG/DL (0.50-1.00); GLOMERULAR FILTRATION RATE 91 ML/MIN (>89); GLUCOSE,RANDOM 137 MG/DL (74-106); LIPASE 114 U/L (73-393); PHOSPHORUS 1.9 MG/DL (2.5-4.9); SODIUM (NA) 142 MEQ/L (136-145); TRIGLYCERIDES 221 MG/DL (42-150)
[2017-11-10 05:48] LABS: ALKALINE PHOSPHATASE 37 U/L (45-117); ALT (GPT) 10 U/L (10-53); CHOLESTEROL/ HDL RATIO 4.16 RATIO; HDL CHOLESTEROL 36.5 MG/DL (40.0-60.0); LDL CHOLESTEROL 71 MG/DL (0-99); TOTAL BILIRUBIN ADULT 0.4 MG/DL (0.2-1.0); TROPONIN I 0.06 NG/ML (0.02-0.05)
--- NOTE | 2017-11-10 05:50 | RADRPT ---
EXAM DATE/TIME: 11/10/2017 04:35 [facility] COMPARISON: CHEST SINGLE AP, November 08, 2017, 19:43. INDICATIONS : Evaluate for pneumonia post Respiratory failure MEDICAL HISTORY : Seizures. Hypertension. SURGICAL HISTORY : Hysterectomy. ENCOUNTER: Subsequent ACUITY: 2 days PAIN SCORE: Non-responsive. LOCATION: Bilateral chest FINDINGS: Single AP view of the chest. Endotracheal tube and nasogastric tube remain in place. Bilateral pulmon lauren opacity most prominent at the left lung base unchanged. No evidence of pleural effusion or pneumo thorax. CONCLUSION: No significant interval change. Jaiden Magaña MD on November 10, 2017 at 5:48 Board Certified Radiologist. This report was verified electronically.
[2017-11-10] MEDS: LEVOTHYROXINE SODIUM 75 MCG TAB PO SCH (06:25)
[2017-11-10] MEDS: TOPIRAMATE 25 MG TAB PO SCH ×3 (06:25→22:14)
[2017-11-10] MEDS: PIPERACIL-TAZO 4.5 GM PREMIX 100 ML IV SCH ×4 (06:26→18:42)
[2017-11-10] MEDS: VALPROATE INJ 500 MG in SODIUM CHLORIDE 0.9% INJ 100 ML IV SCH ×3 (06:27→15:00)
[2017-11-10] MEDS: LISINOPRIL 20 MG TAB PO SCH (08:06)
[2017-11-10] MEDS: LACTULOSE SYRUP 20 GM/30 ML CUP PO SCH (08:06)
[2017-11-10] MEDS: ASPIRIN EC 81 MG TABEC PO SCH (08:06)
[2017-11-10] MEDS: EZETIMIBE 10 MG TAB PO SCH (08:06)
[2017-11-10] MEDS: LANSOPRAZOLE SOLUTAB 30 MG TAB NG SCH (08:06)
[2017-11-10] MEDS: DOCUSATE SODIUM 50 MG/SENNA 8.6 MG TAB PO SCH ×2 (08:06→20:13)
[2017-11-10] MEDS: CHLORHEXIDINE 0.12% (ORAL KIT) 15 ML CUP MT SCH ×2 (08:07→20:13)
[2017-11-10] MEDS: SODIUM CHLOR 0.9% 1000 ML INJ 1,000 ML IV SCH ×2 (10:25→20:14)
[2017-11-10] MEDS: PROPOFOL 1000 MG/100 ML INJ 100 ML IV PRN (10:26)
[2017-11-10] MEDS: SODIUM CHLORIDE 0.9% FLUSH 10 ML FLUSH IV FLUSH SCH ×2 (10:29→20:13)
[2017-11-10] MEDS: ARTIFICIAL TEARS OPTH SOLN 15 ML BTL EACH EYE SCH ×2 (14:00→22:14)
--- NOTE | 2017-11-10 15:37 | HHI.CCPN ---
Subjective Remarks/Hospital Course 67 yo WF with PMH of seizure disorder, HTN, Hyperlipidemia, hypothyroidism, seasonal allergies, depression, GERD who presents to [facility] emergency department following a seizure. Her states that they laid down to take a nap and he was awoken when he felt her shaking in bed with tonic clonic activity. She vomited and he rolled her onto her left side. He estimates that seizure activity lasted for 15 minutes. When E GEOVANNI arrived reportedly her GCS was 3. Her sats were in the high 80s on room air. She was intubated in the field for airway protection following administration of Ativan and etomidate. Versed drip was initiated in the ED. CT brain showed no acute abnormality. Her states she was diagnosed with seizures "many years ago " and he states she was controlled for years. She was admitted after she was intubated for seizure on 08/05/17 which occurred while she was on depakote and had recently stopped topamax. Topamax was restarted during that admission and she was discharged on Topamax by her states it was later discontinued. She has been following up with Dr. Headley every few weeks for adjustment of her Depakote based on laboratory monitoring. He states she has been taking alternating doses of 1000 mg one morning and 500 mg the next morning with 500 mg nightly. He states he saw Dr. Headley earlier today and level was supratherapeutic (he states 132). She has been feeling well overall without complaints of headache or fever. She has had allergy symptoms and was started on an unknown antibiotic for "her sinuses" 2 days ago. 11/09: Tmax 100.7. Currently 100. Currently sedated on midazolam drip at 2 mg now on propofol drip at 10 mics grams per kilogram per minute. MRI brain showed no acute intrarenal findings/EEG showed no epileptiform activity. Hemodynamically stable. Subjective 11/10: Tmax 100.7. Currently 100. Being weaned off all sedation and off 1 hours. Slightly weak on the right upper externa. However following commands on the left upper extremity. Results from spontaneous breathing trials pending. Tolerating tube feeding. No bowel movement Objective Vital Signs Date Time Temp Pulse Resp B/P (MAP) Pulse Ox O2 Delivery O2 Flow Rate FiO2 11/10/17 12:00 40 11/10/17 11:49 100 11/10/17 06:00 98 12/29/17 04:00 99.2 14 127/61 (83) 11/08/17 20:10 Ventilator Intake and Output 11/10/17 11/10/17 11/11/17 08:00 16:00 00:00 Intake Total 1480 ml 990 ml Output Total 1300 ml Balance 180 ml 990 ml Result Diagram: 11/10/17 0433 11/10/17 0433 Other Results Date/Time Source Procedure Growth Status 11/09/17 16:50 Blood Peripheral Aerobic Blood Culture - Preliminary NO GROWTH IN 1 DAY Resulted 11/09/17 16:50 Blood Peripheral Anaerobic Blood Culture - Preliminary NO GROWTH IN 1 DAY Resulted 11/09/17 16:46 Blood Peripheral Aerobic Blood Culture - Preliminary NO GROWTH IN 1 DAY Resulted 11/09/17 16:46 Blood Peripheral Anaerobic Blood Culture - Preliminary NO GROWTH IN 1 DAY Resulted 11/09/17 17:00 Sputum Endotracheal Gram Stain - Final Resulted 11/09/17 17:00 Sputum Endotracheal Sputum Culture - Preliminary IMMATURE GROWTH - REINCUBATE Resulted 11/09/17 17:00 Nasal Washing Influenza Types A,B Antigen (MARTHA) - Final NEGATIVE FOR FLU A AND B ANTIGEN.... Complete Imaging Last Impressions Chest X-Ray 11/10/17 0600 Signed Impressions: Service Date/Time: Friday, November 10, 2017 04:35 - CONCLUSION: No significant interval change. Jaiden Magaña MD Brain MRI 11/09/17 0000 Signed Impressions: Service Date/Time: October 12:08 - CONCLUSION: Stable MRI of the brain demonstrating generalized volume loss with enlargement of the ventricles but no evidence of acute infarct, hemorrhage, mass or edema. Ken Avila MD Head CT 11/08/17 0000 Signed Impressions: Service Date/Time: Wednesday, November 08, 2017 18:30 - CONCLUSION: 1. No acute intracranial abnormality. Adin Sanchez MD Objective Remarks GENERAL: 67-year-old female, resting in bed in no acute distress orotracheally intubated SKIN: Warm and dry, well perfused HEAD: Atraumatic. Normocephalic. EYES: Pupils equal and round, 2 mm reactive bilaterally. No scleral icterus. ENT: No nasal bleeding or discharge. Mucous membranes pink and moist. Neck is supple with no meningismus. NECK: Trachea midline. No JVD. CARDIOVASCULAR: RRR. S1, S2. No S4. RESPIRATORY: Few coarse crackles appreciated bilaterally anteriorly. No wheezes. GASTROINTESTINAL: Abdomen soft, nondistended. No apparent tenderness. Bowel sounds present. : Ardon in place with light yellow urine output MUSCULOSKELETAL: Extremities without clubbing, cyanosis, or edema. Scar overlying right shoulder is well-healed. NEUROLOGICAL: Cranial nerves 2 through 12 grossly intact. Positive gag. Withdraws to pain in all 4 extremity's. Right upper extremity slightly weaker command. Will reassess. Left upper extremity strength 5 out of 5. Moving bilateral lower extremities to command. Sensation appears intact Urinary Catheter: Yes Assessment to: Continue Ardon insert reason: Prolonged Immobilization Vascular Central Line Catheter: No Assessment to: Continue A/P Assessment and Plan NEURO/PSYCH: Status epilepticus Seizure disorder NOS Depression NOS Glaucoma Allergic rhinitis Patient is currently on midazolam at 2 mg an hour and propofol drip at 10 mics grams per kilogram per minute per sedation/analgesia while intubated Goal of RASS 0 Daily sedation vacation Valproic acid level is [address] Headley /neurology Currently on valproic acid 500 mg IV every 8 hours and topiramate 50 mg by tube every 8 hours Recheck valproic acid in a.m. 11/11 Hold venlafaxine 37.5 mg daily - can lower seizure threshold. CT brain 11/08 - no acute abnormality MRI brain 11/09 revealed enlargement of the CSF spaces especially the lateral ventricles is stable. There is no evidence of restricted diffusion, acute hemorrhage, mass effect or edema. EEG 11/09 revealed no epileptiform activity Artificial tears 1 gtt OU 3 times a day Continue latanoprost 0.005% 1 drop each eye at night for glaucoma Holding bimatoprost 0.01% Currently holding fluticasone spray 50 mcg and montelukast 10 mg daily for allergic rhinitis RESP: Acute respiratory failure - aspiration Remote history of tobacco abuse [facility] 14500/11/17/39 Ventilator bundle Albuterol/ipratropium aerosols every 6 hours with albuterol aerosols every 2 hours as needed dyspnea Spontaneous breathing trials today results pending Chest x-ray shows satisfactory endotracheal tube position. Small left basilar infiltrate. Recheck in a.m. 11/11 CV: Hypertension Hyperlipidemia - elevated triglycerides and low HDL Currently on normal saline at 84 cc an hour Continue aspirin 81 mg by mouth daily Continue lisinopril 20 mg by mouth daily for hypertension Continue Ezetimibe 10 mg by mouth daily for dyslipidemia As needed labetalol/hydralazine for hypertension GI: GERD Elevated lipase of unclear significance Elevated ammonia Will recheck lipase and reassess clinically once alert. Lansoprazole 30 mg by tube daily for GI prophylaxis Docusate sodium/senna 1 tablet twice a day for bowel regimen Added lactulose 30 cc daily for elevated ammonia. Level 4512/29. Repeat in a.m. Initiate trickle feeds with Vital 1.5 currently at 20 cc an hour goal 50 cc a day per nutrition's recommendations FEN/RENAL/: Urinary incontinence Hypophosphatemia Currently holding oxybutynin 10 mg daily Maintain Ardon in place. Monitor intake and output. Monitor electrolytes. Replace electrolytes per ICU electrolyte replacement protocol. 30 mmol K-Phos IV 1 now. Recheck in a.m. ID: Aspiration pneumonitis With low-grade fevers currently on piperacillin/tazobactam She reportedly was started on an outpatient antibiotic 2 days ago for her sinuses. She took her antibiotic already 11/08 - CEFDINIR [address] brain/head revealed no signs of sinusitis. Pertinent cultures 11/09 - blood cultures 2 - no growth 11/09 - sputum - pending Influenza negative UA culture ordered 11/10 HEME: Erythrocyte macrocytosis. Leukocytosis - neutrophil predominant Check B - WNL Check TSH with erythrocytosis and peripheral smear No indication for transfusion of blood products at this time ENDO: Hypothyroidism Hyperglycemia Continue levothyroxine 75 g by mouth daily. TSH 0.54 Sliding-scale insulin with Novulog with Accu-Cheks every 6 hours to maintain euglycemia/low regimen MSK: Osteoporosis Elevated BMI Alendronate unknown dosage at home. Hold. PT evaluate and treat Weight loss will be encouraged PROPH: Enoxaparin 40 mg subcutaneous daily for DVT prophylaxis. Lansoprazole 30 mg daily for stress ulcer prophylaxis and history of GERD on PPI at home. ACCESS: Peripheral IV providing adequate access at this time. Level II follow-up Tonny Lomeli MD Nov 10, 2017 15:37
[2017-11-10] MEDS ORDERED: POTASSIUM PHOSPHATE INJ 30 MMOL in SODIUM CHLOR 0.9% 250 ML INJ 250 ML IV ONE (16:00)
[2017-11-10] MEDS: ENOXAPARIN SODIUM 40 MG/0.4 ML SYRINGE SQ SCH (20:13)
[2017-11-10] MEDS: LATANOPROST 0.005% OPHT SOLN 2.5 ML BTL EACH EYE SCH (20:13)
--- NOTE | 2017-11-10 20:46 | HHI.PR ---
Review/Management Diagnosis recurrent SZ Plan increase valproic acid continue topamax when extubated and able to take po change depakote to 500 mg po qid Diagnosis/Plan: Subjective Subjective Comments No acute events reported No recurrent sz. Active Medications Current Medications Medications (Trade) Dose Ordered Sig/Tiera Route Start Time Stop Time Status Last Admin (NS Flush) 2 ml UNSCH PRN IVF 11/08/17 17:00 Midazolam HCl 100 ml @ 2 mls/hr TITRATE PRN IV 11/08/17 17:00 11/09/17 15:05 Propofol 100 ml @ 2.7 mls/hr TITRATE PRN IV 11/08/17 19:15 11/10/17 10:26 (Ecotrin Ec) 81 mg DAILY PO 11/09/17 09:00 (Zetia) 10 mg DAILY PO 11/09/17 09:00 11/10/17 08:06 (Synthroid) 75 mcg DAILY@0600 PO 11/09/17 06:00 11/10/17 06:25 (Prinivil) 20 mg DAILY PO 11/09/17 09:00 11/10/17 08:06 (Singulair) 10 mg HS PO 11/08/17 21:00 11/09/17 21:06 Sodium Chloride 1,000 ml @ 84 mls/hr [id number] IV 11/08/17 19:35 11/10/17 20:14 (NS Flush) 2 ml UNSCH PRN IV FLUSH 11/08/17 19:45 (NS Flush) 2 ml BID IV FLUSH 11/08/17 21:00 11/10/17 20:13 (Ativan Inj) 2 mg Q5M PRN IV PUSH 11/08/17 19:45 (Zofran Inj) 4 mg Q6H PRN IV PUSH 11/08/17 19:45 (Lovenox Inj) 40 mg Q24H SQ 11/08/17 20:00 11/10/17 20:13 Miscellaneous Information 1 [id number] XX 11/08/17 19:45 (Chlorhexidine 2% Cloth) 3 pack Taper DAILY@04 TOP 11/09/17 04:00 11/05/18 03:59 11/09/17 04:00 (Chlorhexidine 2% Cloth) 3 pack UNSCH PRN TOP 11/08/17 19:45 (Anahi-Colace) 1 tab BID PO 11/08/17 21:00 11/10/17 20:13 (Milk Of Magnesia Liq) 30 ml Q12H PRN PO 11/08/17 19:45 (Senokot) 17.2 mg Q12H PRN PO 11/08/17 19:45 (Dulcolax Supp) 10 mg DAILY PRN RECTAL 11/08/17 19:45 (Lactulose Liq) 30 ml DAILY PRN PO 11/08/17 19:45 (Peridex 0.12% Liq) 15 ml BID@08,20 MT 11/09/17 08:00 11/10/17 20:13 Potassium Chloride 100 ml @ 50 mls/hr Q2H PRN IV 11/09/17 02:30 Potassium Chloride 100 ml @ 50 mls/hr Q2H PRN IV 11/09/17 02:30 (K-Lyte Cl Eff) 50 meq UNSCH PRN PO 11/09/17 02:30 Potassium Chloride 100 ml @ 25 mls/hr UNSCH PRN IV 11/09/17 02:30 Potassium Chloride 100 ml @ 50 mls/hr Q2H PRN IV 11/09/17 02:30 Magnesium Sulfate 4 gm/Sodium Chloride 100 ml @ 50 mls/hr UNSCH PRN IV 11/09/17 02:30 (Mag-Ox) 800 mg UNSCH PRN PO 11/09/17 02:30 Magnesium Sulfate 2 gm/Sodium Chloride 100 ml @ 50 mls/hr UNSCH PRN IV 11/09/17 02:30 (K-Phos) 2,000 mg Q4H PRN PO 11/09/17 02:30 Sodium Phosphate 30 mmol/Sodium Chloride 250 ml @ 42 mls/hr UNSCH PRN IV 11/09/17 02:30 (K-Phos) 2,000 mg UNSCH PRN PO/TUBE 11/09/17 02:30 Potassium Phosphate 30 mmol/ Sodium Chloride 260 ml @ 42 mls/hr UNSCH PRN IV 11/09/17 02:30 (D50w (Vial) Inj) 50 ml UNSCH PRN IV PUSH 11/09/17 02:30 (Glucagon Inj) 1 mg UNSCH PRN OTHER 11/09/17 02:30 (NovoLOG SUPPLEMENTAL SCALE) 1 Q6H SQ 11/09/17 03:00 Fentanyl Citrate 250 ml @ 5 mls/hr TITRATE PRN IV 11/09/17 02:45 (Xalatan 0.005% Opth Soln) 1 drop HS EACH EYE 11/09/17 21:00 11/10/17 20:13 (Albuterol Neb) 2.5 mg Q2HR NEB PRN NEB 11/09/17 03:45 Valproate Sodium 500 mg/Sodium Chloride 105 ml @ 105 mls/hr Q8HR IV 11/09/17 14:00 11/10/17 15:00 (Topamax) 50 mg Q8HR PO 11/09/17 09:45 11/10/17 15:00 (Tylenol 650 Mg/ 20 ml Liq) 650 mg Q6H PRN PO 11/09/17 16:30 11/09/17 16:47 (Tears Naturale Opth Soln) 1 drop Q8HR EACH EYE 11/09/17 22:00 11/10/17 14:00 (Prevacid Odt) 30 mg DAILY NG 11/10/17 09:00 11/10/17 08:06 (Duoneb Neb) 1 ampule Q6HR NEB NEB 11/09/17 22:00 11/10/17 16:25 (Lactulose Liq) 30 ml DAILY PO 11/10/17 09:00 11/10/17 08:06 (Apresoline Inj) 10 mg Q1HR PRN IV PUSH 11/09/17 16:30 (Trandate Inj) 5 mg Q1HR PRN IV PUSH 11/09/17 16:30 Piperacillin Sod/ Tazobactam Sod 100 ml @ 200 mls/hr Q6H IV 11/09/17 18:00 11/10/17 18:42 Potassium Phosphate 30 mmol/ Sodium Chloride 260 ml @ 43.333 mls/ hr ONCE ONCE IV 11/10/17 16:00 11/10/17 21:59 11/10/17 16:48 Allergies Allergies Coded Allergies fluconazole (Unverified Allergy, Severe, 08/05/17) hydromorphone (Unverified Allergy, Severe, 08/05/17) levetiracetam (Unverified Allergy, Severe, Anaphylaxis, 08/05/17) rifampin (Unverified Allergy, Severe, 08/05/17) phenytoin (Unverified Allergy, Mild, Rash, 08/05/17) Exam I&O / VS 11/10/17 11/10/17 11/11/17 15:00 23:00 07:00 Intake Total 1090 ml 350 ml Output Total 625 ml Balance 1090 ml -275 ml Intake IV Total 1090 ml 200 ml Tube Feeding 60 ml Tube Irrigant 90 ml Output Urine Total 625 ml # Bowel Movements 0 Vital Signs Date Time Temp Pulse Resp B/P (MAP) Pulse Ox O2 Delivery O2 Flow Rate FiO2 11/10/17 20:36 100 35 11/10/17 20:00 99.6 90 16 159/72 (101) 100 11/10/17 20:00 90 11/10/17 18:00 89 11/10/17 16:26 99 35 11/10/17 16:26 35 11/10/17 16:00 86 11/10/17 16:00 40 11/10/17 16:00 99.3 86 14 152/70 (97) 100 11/10/17 14:00 89 11/10/17 12:00 40 11/10/17 12:00 99.3 89 156/78 (104) 100 11/10/17 12:00 89 11/10/17 11:49 100 40 11/10/17 10:00 86 11/10/17 08:25 100 40 11/10/17 08:00 40 11/10/17 08:00 80 11/10/17 08:00 99.2 80 143/66 (91) 100 11/10/17 06:00 98 11/10/17 04:15 100 40 11/10/17 04:00 98 11/10/17 04:00 99.2 82 14 127/61 (83) 95 11/10/17 02:00 96 11/10/17 00:00 40 11/10/17 00:00 96 11/10/17 00:00 100.0 90 14 142/65 (90) 98 11/09/17 22:02 99 40 11/09/17 22:00 96 Exam Comments alert, follow ing commands CN perrl, eom intact MOTOR no focal deficit Objective Micro and Labs Laboratory Tests Test 11/10/17 04:33 White Blood Count 11.2 Red Blood Count 3.62 Hemoglobin 12.3 Hematocrit 37.4 Mean Corpuscular Volume 103.3 Mean Corpuscular Hemoglobin 33.8 Mean Corpuscular Hemoglobin Concent 32.8 Red Cell Distribution Width 14.0 Platelet Count 139 Mean Platelet Volume 8.4 Neutrophils (%) (Auto) 78.2 Lymphocytes (%) (Auto) 12.1 Monocytes (%) (Auto) 8.6 Eosinophils (%) (Auto) 0.8 Basophils (%) (Auto) 0.3 Neutrophils # (Auto) 8.7 Lymphocytes # (Auto) 1.3 Monocytes # (Auto) 1.0 Eosinophils # (Auto) 0.1 Basophils # (Auto) 0.0 CBC Comment DIFF FINAL Differential Comment Blood Urea Nitrogen 12 Creatinine 0.65 Random Glucose 137 Total Protein 6.0 Albumin 2.6 Calcium Level 8.0 Phosphorus Level 1.9 Magnesium Level 2.0 Alkaline Phosphatase 37 Aspartate Amino Transf (AST/SGOT) 9 Alanine Aminotransferase (ALT/SGPT) 10 Total Bilirubin 0.4 Sodium Level 142 Potassium Level 3.5 Chloride Level 109 Carbon Dioxide Level 24.3 Anion Gap 9 Estimat Glomerular Filtration Rate 91 Lactic Acid Level 1.6 Ammonia 45 Troponin I 0.06 Triglycerides Level 221 Cholesterol Level 152 LDL Cholesterol 71 HDL Cholesterol 36.5 Cholesterol/HDL Ratio 4.16 Amylase Level 35 Lipase 114 Thyroid Stimulating Hormone 3rd Gen 0.542 Valproic Acid (Depakene) Level 68 Date/Time Source Procedure Growth Status 11/09/17 16:50 Blood Peripheral Aerobic Blood Culture - Preliminary NO GROWTH IN 1 DAY Resulted 11/09/17 16:50 Blood Peripheral Anaerobic Blood Culture - Preliminary NO GROWTH IN 1 DAY Resulted 11/09/17 17:00 Sputum Endotracheal Gram Stain - Final Resulted 11/09/17 17:00 Sputum Endotracheal Sputum Culture - Preliminary IMMATURE GROWTH - REINCUBATE Resulted 11/10/17 18:40 Urine Catheterized Urine Urine Culture Pending Received Diagnostic Tests EEG---beta activity due to medication effect with no epileptiform features Loy Headley MD PhD Nov 10, 2017 20:46
[2017-11-11] VITALS (22 sets, daily range): BP systolic 112–162; BP diastolic 56–82; PULSE 81–100; RESP 16; TEMP 98.5–100.2; O2SAT 93–100
[2017-11-11] MEDS: PIPERACIL-TAZO 4.5 GM PREMIX 100 ML IV SCH ×5 (01:46→23:33)
[2017-11-11] MEDS: INSULIN ASPART SUPPLEMENTAL SCALE SQ SCH ×4 (03:00→20:45)
[2017-11-11 03:31] LABS: AUTOMATED NEUTROPHIL # 8.5 TH/MM3 (1.8-7.7); BASOPHIL # 0.1 TH/MM3 (0-0.2); BASOPHIL % 0.6 % (0.0-2.0); EOSINOPHIL # 0.3 TH/MM3 (0-0.4); EOSINOPHIL % 2.3 % (0.0-4.0); HEMATOCRIT 32.9 % (35.0-46.0); HEMOGLOBIN 10.8 GM/DL (11.6-15.3); LYMPH % 12.8 % (9.0-44.0); LYMPHOCYTE # 1.4 TH/MM3 (1.0-4.8); MEAN CELL VOLUME 103.5 FL (80.0-100.0); MEAN CORPUSCULAR HGB CONC 32.9 % (32.0-36.0); MEAN PLATELET VOLUME 8.1 FL (7.0-11.0); MONOCYTE # 0.9 TH/MM3 (0-0.9); NEUT % 76.3 % (16.0-70.0); PLATELET COUNT 150 TH/MM3 (150-450); RED BLOOD COUNT 3.18 MIL/MM3 (4.00-5.30); WHITE BLOOD COUNT 11.1 TH/MM3 (4.0-11.0)
[2017-11-11 03:57] LABS: ALBUMIN 2.4 GM/DL (3.4-5.0); ALT (GPT) 10 U/L (10-53); AST (GOT) 8 U/L (15-37); BICARBONATE 24.7 MEQ/L (21.0-32.0); BLOOD UREA NITROGEN 13 MG/DL (7-18); CALCIUM 8.2 MG/DL (8.5-10.1); CHLORIDE 112 MEQ/L (98-107); CREATININE 0.53 MG/DL (0.50-1.00); GLOMERULAR FILTRATION RATE 115 ML/MIN (>89); GLUCOSE,RANDOM 125 MG/DL (74-106); MAGNESIUM 1.9 MG/DL (1.5-2.5); PHOSPHORUS 2.2 MG/DL (2.5-4.9); SODIUM (NA) 144 MEQ/L (136-145)
[2017-11-11 03:59] LABS: ALKALINE PHOSPHATASE 35 U/L (45-117); TOTAL BILIRUBIN ADULT 0.3 MG/DL (0.2-1.0); TOTAL PROTEIN 5.8 GM/DL (6.4-8.2)
[2017-11-11] MEDS: CHLORHEXIDINE GLUCONATE 2 % 1 PACK (2 CLOTHS) TOP SCH (04:00)
[2017-11-11] MEDS: RESP: ALBUTEROL 2.5 MG/IPRATROPIUM 0.5 MG NEB (SCH) NEB ×4 (04:31→21:33)
--- NOTE | 2017-11-11 05:19 | RADRPT ---
EXAM DATE/TIME: 11/11/2017 03:41 [place] COMPARISON: CHEST SINGLE AP, November 10, 2017, 4:35. INDICATIONS : Shortness of breath, possible pulmonary disease. MEDICAL HISTORY : Hypertension. Seizures SURGICAL HISTORY : Hysterectomy. ENCOUNTER: Subsequent ACUITY: 3 days PAIN SCORE: Non-responsive. LOCATION: Bilateral chest FINDINGS: Mild bibasilar consolidation and small effusions are again noted, not significantly changed. No pneum othorax. Heart size stable, within normal limits. Endotracheal tube tip is approximately 4 cm above the alfreda. There is a nasogastric tube coiled in t he stomach. CONCLUSION: No significant change. Bautista Wynne MD on November 11, 2017 at 5:17 Board Certified Radiologist. This report was verified electronically.
[2017-11-11] MEDS: VALPROATE INJ 500 MG in SODIUM CHLORIDE 0.9% INJ 100 ML IV SCH ×6 (06:35→23:33)
[2017-11-11] MEDS: LEVOTHYROXINE SODIUM 75 MCG TAB PO SCH (06:36)
[2017-11-11] MEDS: ARTIFICIAL TEARS OPTH SOLN 15 ML BTL EACH EYE SCH ×3 (06:36→23:34)
[2017-11-11] MEDS: TOPIRAMATE 25 MG TAB PO SCH ×3 (06:36→23:33)
--- NOTE | 2017-11-11 07:33 | HHI.CCPN ---
Subjective Remarks/Hospital Course 67 yo WF with PMH of seizure disorder, HTN, Hyperlipidemia, hypothyroidism, seasonal allergies, depression, GERD who presents to [facility] emergency department following a seizure. Her states that they laid down to take a nap and he was awoken when he felt her shaking in bed with tonic clonic activity. She vomited and he rolled her onto her left side. He estimates that seizure activity lasted for 15 minutes. When E GEOVANNI arrived reportedly her GCS was 3. Her sats were in the high 80s on room air. She was intubated in the field for airway protection following administration of Ativan and etomidate. Versed drip was initiated in the ED. CT brain showed no acute abnormality. Her states she was diagnosed with seizures "many years ago " and he states she was controlled for years. She was admitted after she was intubated for seizure on 08/05/17 which occurred while she was on depakote and had recently stopped topamax. Topamax was restarted during that admission and she was discharged on Topamax by her states it was later discontinued. She has been following up with Dr. Headley every few weeks for adjustment of her Depakote based on laboratory monitoring. He states she has been taking alternating doses of 1000 mg one morning and 500 mg the next morning with 500 mg nightly. He states he saw Dr. Headley earlier today and level was supratherapeutic (he states 132). She has been feeling well overall without complaints of headache or fever. She has had allergy symptoms and was started on an unknown antibiotic for "her sinuses" 2 days ago. 11/09: Tmax 100.7. Currently 100. Currently sedated on midazolam drip at 2 mg now on propofol drip at 10 mics grams per kilogram per minute. MRI brain showed no acute intrarenal findings/EEG showed no epileptiform activity. Hemodynamically stable. 11/10: Tmax 100.7. Currently 100. Being weaned off all sedation and off 1 hours. Slightly weak on the right upper externa. However following commands on the left upper extremity. Results from spontaneous breathing trials pending. Tolerating tube feeding. No bowel movement Subjective 11/11 Following commands all extremities on vent. Tolerated CPAP 10 over 5 all night. Does have moderate respiratory secretions, but good cough. CXR stable. WBC stable 11. RSBI in 30s. Coarse breath sounds are now better after response to Lasix. Objective Vital Signs Date Time Temp Pulse Resp B/P (MAP) Pulse Ox O2 Delivery O2 Flow Rate FiO2 11/11/17 06:00 82 11/11/17 04:33 100 Ventilator 11/11/17 04:33 35 11/11/17 04:00 150/66 (94) 11/11/17 00:00 100.2 11/10/17 20:00 16 Intake and Output 11/11/17 11/11/17 11/12/17 08:00 16:00 00:00 Intake Total 450 ml Output Total 550 ml Balance -100 ml Result Diagram: 11/11/17 0316 11/11/17 0316 Other Results Microbiology Date/Time Source Procedure Growth Status 11/09/17 17:00 Nasal Washing Influenza Types A,B Antigen (MARTHA) - Final NEGATIVE FOR FLU A AND B ANTIGEN.... Complete Imaging Last Impressions Chest X-Ray 11/10/17 0600 Signed Impressions: Service Date/Time: Friday, November 10, 2017 04:35 - CONCLUSION: No significant interval change. Jaiden Magaña MD Brain MRI 11/09/17 0000 Signed Impressions: Service Date/Time: October 12:08 - CONCLUSION: Stable MRI of the brain demonstrating generalized volume loss with enlargement of the ventricles but no evidence of acute infarct, hemorrhage, mass or edema. Ken Avila MD Head CT 11/08/17 0000 Signed Impressions: Service Date/Time: Wednesday, November 08, 2017 18:30 - CONCLUSION: 1. No acute intracranial abnormality. Adin Sanchez MD Objective Remarks GENERAL: 67-year-old female, resting in bed on CPAP. SKIN: Warm and dry, well perfused HEAD: Atraumatic. Normocephalic. EYES: Pupils equal and round, 2 mm reactive bilaterally. No scleral icterus. ENT: No nasal bleeding or discharge. Mucous membranes pink and moist. Neck is supple with no meningismus. NECK: Trachea midline. No JVD. CARDIOVASCULAR: RRR. S1, S2. No S4. RESPIRATORY: Few coarse crackles appreciated bilaterally anteriorly. No wheezes. GASTROINTESTINAL: Abdomen soft, nondistended. No apparent tenderness. Bowel sounds present. : Pure wick in place, wetting bed. MUSCULOSKELETAL: Extremities without clubbing, cyanosis, or edema. Scar overlying right shoulder is well-healed. NEUROLOGICAL: Alert with eyes open and nods and shakes head in answer to questions. Cranial nerves 2 through 12 grossly intact. Follows commands with all extremities. A/P Assessment and Plan NEURO/PSYCH: Status epilepticus Seizure disorder NOS Depression NOS Glaucoma Allergic rhinitis Sedation vacation, off sedative Evaluated by Dr. Headley /neurology Currently on valproic acid 500 mg IV every 8 hours and topiramate 50 mg by tube every 8 hours Recheck valproic acid . 11/11 is 80. Held venlafaxine 37.5 mg daily - can lower seizure threshold. CT brain 11/08 - no acute abnormality MRI brain 11/09 revealed enlargement of the CSF spaces especially the lateral ventricles is stable. There is no evidence of restricted diffusion, acute hemorrhage, mass effect or edema. EEG 11/09 revealed no epileptiform activity Artificial tears 1 gtt OU 3 times a day Continue latanoprost 0.005% 1 drop each eye at night for glaucoma Holding bimatoprost 0.01% Currently holding fluticasone spray 50 mcg. Continue singulair 10 mg daily for allergic rhinitis RESP: Acute respiratory failure - aspiration Remote history of tobacco abuse [facility] 14/500// Ventilator bundle Albuterol/ipratropium aerosols every 6 hours with albuterol aerosols every 2 hours as needed dyspnea Tolerating CPAP. Gave Lasix 20 mg IV. Extubate 11/01. Chest x-ray shows satisfactory endotracheal tube position. Small left basilar infiltrate. Recheck in a.m. 11/11 CV: Hypertension Hyperlipidemia - elevated triglycerides and low HDL normal saline at 84 cc an hour -- > KVO. Continue aspirin 81 mg by mouth daily Continue lisinopril 20 mg by mouth daily for hypertension Continue Ezetimibe 10 mg by mouth daily for dyslipidemia As needed labetalol/hydralazine for hypertension GI: GERD Elevated lipase of unclear significance Elevated ammonia Lipase normalized and she is asymptomatic. Lansoprazole 30 mg by tube daily for GI prophylaxis Docusate sodium/senna 1 tablet twice a day for bowel regimen On lactulose 30 cc daily for elevated ammonia. Level is 61 11/11 ? depakote. D/c tube feeds. Swallow eval and advanced diet as appropriate. FEN/RENAL/: Urinary incontinence Hypophosphatemia Resume oxybutynin 10 mg daily D/c purewick which is not working. Monitor intake and output. Monitor electrolytes. Replace electrolytes per ICU electrolyte replacement protocol. 30 mmol K-Phos IV 1 now. Recheck in a.m. ID: Aspiration pneumonitis With low-grade fevers currently on piperacillin/tazobactam 11/09 #3. She reportedly was started on an outpatient antibiotic 2 days ago for her sinuses. She took her antibiotic already 11/08 - CEFDINIR [address] brain/head revealed no signs of sinusitis. Pertinent cultures 11/09 - blood cultures 2 - no growth 11/09 - sputum -immature growth. Influenza negative UA culture ordered 11/10 HEME: Erythrocyte macrocytosis. Leukocytosis - neutrophil predominant Check B - WNL TSH normal. Peripheral smear 11/09- mild macrocytosis and minimal leukocytosis with reactive features. No indication for transfusion of blood products at this time ENDO: Hypothyroidism Hyperglycemia Continue levothyroxine 75 g by mouth daily. TSH 0.54 Sliding-scale insulin with Novulog with Accu-Cheks every 6 hours to maintain euglycemia/low regimen MSK: Osteoporosis Elevated BMI Alendronate unknown dosage at home. Hold. PT evaluate and treat Weight loss will be encouraged PROPH: Enoxaparin 40 mg subcutaneous daily for DVT prophylaxis. Lansoprazole 30 mg daily for stress ulcer prophylaxis and history of GERD on PPI at home. ACCESS: Peripheral IV providing adequate access at this time. Level III follow-up Discussed with patient and her at bedside. Mita Guerra MD Nov 11, 2017 07:33
[2017-11-11] MEDS: LACTULOSE SYRUP 20 GM/30 ML CUP PO SCH ×2 (07:42→20:43)
[2017-11-11] MEDS: DOCUSATE SODIUM 50 MG/SENNA 8.6 MG TAB PO SCH ×2 (07:42→20:43)
[2017-11-11] MEDS: EZETIMIBE 10 MG TAB PO SCH (07:42)
[2017-11-11] MEDS: LANSOPRAZOLE SOLUTAB 30 MG TAB NG SCH (07:42)
[2017-11-11] MEDS: SODIUM CHLORIDE 0.9% FLUSH 10 ML FLUSH IV FLUSH SCH ×2 (07:43→20:45)
[2017-11-11] MEDS: ASPIRIN EC 81 MG TABEC PO SCH (07:43)
[2017-11-11] MEDS: LISINOPRIL 20 MG TAB PO SCH (07:43)
[2017-11-11] MEDS: CHLORHEXIDINE 0.12% (ORAL KIT) 15 ML CUP MT SCH ×2 (07:43→20:00)
[2017-11-11] MEDS ORDERED: FUROSEMIDE 20 MG/2 ML VIAL IV PUSH ONE (08:00)
[2017-11-11] MEDS ORDERED: LABETALOL HCL 100 MG/20 ML VIAL IV PUSH PRN (09:45)
[2017-11-11] MEDS ORDERED: OXYBUTYNIN CHLORIDE 5 MG TAB PO ONE (10:45)
[2017-11-11] MEDS ORDERED: MAGNESIUM SULFATE 1 GM PREMIX 100 ML IV ONE (18:00)
[2017-11-11] MEDS: MONTELUKAST SODIUM 10 MG TAB PO SCH (20:43)
[2017-11-11] MEDS: LATANOPROST 0.005% OPHT SOLN 2.5 ML BTL EACH EYE SCH (20:44)
[2017-11-11] MEDS: ENOXAPARIN SODIUM 40 MG/0.4 ML SYRINGE SQ SCH (20:44)
[2017-11-12] VITALS (13 sets, daily range): BP systolic 120–176; BP diastolic 56–99; PULSE 66–79; RESP 14–17; TEMP 98.2–98.9; O2SAT 94–98
[2017-11-12] MEDS: INSULIN ASPART SUPPLEMENTAL SCALE SQ SCH ×4 (03:00→21:00)
[2017-11-12 03:50] LABS: AUTOMATED NEUTROPHIL # 5.4 TH/MM3 (1.8-7.7); BASOPHIL % 0.6 % (0.0-2.0); EOSINOPHIL # 0.4 TH/MM3 (0-0.4); HEMATOCRIT 31.8 % (35.0-46.0); HEMOGLOBIN 10.2 GM/DL (11.6-15.3); LYMPH % 18.5 % (9.0-44.0); LYMPHOCYTE # 1.5 TH/MM3 (1.0-4.8); MEAN CELL VOLUME 105.5 FL (80.0-100.0); MEAN CORPUSCULAR HEMOGLOBIN 33.8 PG (27.0-34.0); MEAN CORPUSCULAR HGB CONC 32.1 % (32.0-36.0); MEAN PLATELET VOLUME 8.5 FL (7.0-11.0); MONO % 8.7 % (0.0-8.0); MONOCYTE # 0.7 TH/MM3 (0-0.9); NEUT % 67.2 % (16.0-70.0); PLATELET COUNT 143 TH/MM3 (150-450); RED BLOOD COUNT 3.01 MIL/MM3 (4.00-5.30); RED CELL DISTRIBUTION WIDTH 13.6 % (11.6-17.2); WHITE BLOOD COUNT 8.1 TH/MM3 (4.0-11.0)
[2017-11-12] MEDS: CHLORHEXIDINE GLUCONATE 2 % 1 PACK (2 CLOTHS) TOP SCH (04:00)
[2017-11-12 04:05] LABS: BICARBONATE 25.2 MEQ/L (21.0-32.0); CALCIUM 8.6 MG/DL (8.5-10.1); CREATININE 0.52 MG/DL (0.50-1.00); MAGNESIUM 2.1 MG/DL (1.5-2.5); PHOSPHORUS 2.9 MG/DL (2.5-4.9)
[2017-11-12] MEDS: RESP: ALBUTEROL 2.5 MG/IPRATROPIUM 0.5 MG NEB (SCH) NEB ×4 (04:56→21:45)
[2017-11-12] MEDS: TOPIRAMATE 25 MG TAB PO SCH ×3 (06:57→23:01)
[2017-11-12] MEDS: ARTIFICIAL TEARS OPTH SOLN 15 ML BTL EACH EYE SCH ×3 (06:57→23:01)
[2017-11-12] MEDS: PIPERACIL-TAZO 4.5 GM PREMIX 100 ML IV SCH ×4 (06:57→23:16)
[2017-11-12] MEDS: VALPROATE INJ 500 MG in SODIUM CHLORIDE 0.9% INJ 100 ML IV SCH ×2 (06:57→11:49)
[2017-11-12] MEDS: LEVOTHYROXINE SODIUM 75 MCG TAB PO SCH (06:57)
[2017-11-12] MEDS: CHLORHEXIDINE 0.12% (ORAL KIT) 15 ML CUP MT SCH ×2 (08:00→20:00)
[2017-11-12] MEDS: DOCUSATE SODIUM 50 MG/SENNA 8.6 MG TAB PO SCH ×2 (08:13→23:01)
[2017-11-12] MEDS: ASPIRIN EC 81 MG TABEC PO SCH (08:13)
[2017-11-12] MEDS: EZETIMIBE 10 MG TAB PO SCH (08:13)
[2017-11-12] MEDS: LACTULOSE SYRUP 20 GM/30 ML CUP PO SCH ×2 (08:13→23:01)
[2017-11-12] MEDS: LISINOPRIL 20 MG TAB PO SCH (08:13)
[2017-11-12] MEDS: OXYBUTYNIN CHLORIDE 5 MG TAB PO SCH (08:14)
[2017-11-12] MEDS: LANSOPRAZOLE SOLUTAB 30 MG TAB NG SCH (09:00)
[2017-11-12] MEDS: SODIUM CHLORIDE 0.9% FLUSH 10 ML FLUSH IV FLUSH SCH ×2 (11:49→23:02)
[2017-11-12] MEDS: VALPROIC ACID 250 MG CAP PO SCH ×2 (13:00→17:06)
[2017-11-12] MEDS: METOPROLOL TARTRATE 25 MG TAB PO SCH ×2 (15:50→23:01)
--- NOTE | 2017-11-12 17:05 | PD.TRANSFR ---
Transfer Summary Admission Date Nov 08, 2017 at 19:06 Transfer Date: Nov 12, 2017 Admitting Diagnosis status epelipticus, dehydration Diagnoses: Transfer Summary/Subjective 67 yo WF with PMH of seizure disorder, HTN, Hyperlipidemia, hypothyroidism, seasonal allergies, depression, GERD who presents to [facility] emergency department following a seizure. Her states that they laid down to take a nap and he was awoken when he felt her shaking in bed with tonic clonic activity. She vomited and he rolled her onto her left side. He estimates that seizure activity lasted for 15 minutes. When E GEOVANNI arrived reportedly her GCS was 3. Her sats were in the high 80s on room air. She was intubated in the field for airway protection following administration of Ativan and etomidate. Versed drip was initiated in the ED. CT brain showed no acute abnormality. Her states she was diagnosed with seizures "many years ago " and he states she was controlled for years. She was admitted after she was intubated for seizure on 08/05/17 which occurred while she was on depakote and had recently stopped topamax. Topamax was restarted during that admission and she was discharged on Topamax by her states it was later discontinued. She has been following up with Dr. Headley every few weeks for adjustment of her Depakote based on laboratory monitoring. He states she has been taking alternating doses of 1000 mg one morning and 500 mg the next morning with 500 mg nightly. He states he saw Dr. Headley earlier today and level was supratherapeutic (he states 132). She has been feeling well overall without complaints of headache or fever. She has had allergy symptoms and was started on an unknown antibiotic for "her sinuses" 2 days ago. 11/09: Tmax 100.7. Currently 100. Currently sedated on midazolam drip at 2 mg now on propofol drip at 10 mics grams per kilogram per minute. MRI brain showed no acute intrarenal findings/EEG showed no epileptiform activity. Hemodynamically stable. 11/10: Tmax 100.7. Currently 100. Being weaned off all sedation and off 1 hours. Slightly weak on the right upper externa. However following commands on the left upper extremity. Results from spontaneous breathing trials pending. Tolerating tube feeding. No bowel movement 11/11 Following commands all extremities on vent. Tolerated CPAP 10 over 5 all night. Does have moderate respiratory secretions, but good cough. CXR stable. WBC stable 11. RSBI in 30s. Coarse breath sounds are now better after response to Lasix. Subjective: 11/12 Tolerated extubation on 11/11. No further seizures. WBC normalize. Afebrile. Sat up at edge of bed yesterday with PT. PT didnt come today, has not been out of bed. Objective Vital Signs Date Time Temp Pulse Resp B/P (MAP) Pulse Ox O2 Delivery O2 Flow Rate FiO2 11/12/17 16:00 72 11/12/17 16:00 98.9 15 96 11/12/17 15:54 176/75 (108) 11/11/17 23:42 Nasal Cannula 2.00 11/11/17 08:46 35 Intake and Output 11/12/17 11/12/17 11/13/17 08:00 16:00 00:00 Intake Total 105 ml Balance 105 ml Result Diagram: 11/12/17 0335 11/12/17 0335 Imaging Last Impressions Chest X-Ray 11/10/17 0600 Signed Impressions: Service Date/Time: Friday, November 10, 2017 04:35 - CONCLUSION: No significant interval change. Jaiden Magaña MD Brain MRI 11/09/17 0000 Signed Impressions: Service Date/Time: October 12:08 - CONCLUSION: Stable MRI of the brain demonstrating generalized volume loss with enlargement of the ventricles but no evidence of acute infarct, hemorrhage, mass or edema. Ken Avila MD Head CT 11/08/17 0000 Signed Impressions: Service Date/Time: Wednesday, November 08, 2017 18:30 - CONCLUSION: 1. No acute intracranial abnormality. Adin Sanchez MD Objective Remarks GENERAL: 67-year-old female, sitting up in bed. SKIN: Warm and dry, well perfused HEAD: Atraumatic. Normocephalic. EYES: Pupils equal and round, 2 mm reactive bilaterally. No scleral icterus. ENT: No nasal bleeding or discharge. Mucous membranes pink and moist. Neck is supple with no meningismus. NECK: Trachea midline. No JVD. CARDIOVASCULAR: RRR. No mrg. RESPIRATORY: CTAB . No wheeze. on RA. GASTROINTESTINAL: Abdomen soft, nondistended. Nontender. Bowel sounds present. : Voiding MUSCULOSKELETAL: Extremities without clubbing, cyanosis, or edema. Scar overlying right shoulder is well-healed. NEUROLOGICAL: Alert , oriented and able to recall medical history. Cranial nerves 2 through 12 grossly intact. Follows commands with all extremities. Procedures Intubated by E VAC 11/08/17 Vascular Central Line Catheter: No A/P Problem List: (1) Acute respiratory failure ICD Code: J96.00 - Acute respiratory failure Status: Resolved (2) Hypothyroidism ICD Code: E03.9 - Hypothyroidism Status: Chronic (3) Aspiration into airway ICD Code: T17.998A - Aspiration into airway Status: Acute (4) Status epilepticus ICD Code: G40.301 - Status epilepticus Status: Resolved (5) Dyslipidemia ICD Code: E78.5 - Dyslipidemia Status: Chronic (6) Hypertension ICD Code: I10 - Essential (primary) hypertension Status: Chronic (7) Obesity (BMI 30-39.9) ICD Code: E66.9 - Obesity, unspecified Status: Chronic (8) GERD (gastroesophageal reflux disease) ICD Code: K21.9 - Gastro-esophageal reflux disease without esophagitis Status: Chronic (9) Hyperammonemia ICD Code: E72.20 - Disorder of urea cycle metabolism, unspecified Status: Chronic Assessment and Plan NEURO/PSYCH: Status epilepticus Seizure disorder NOS Depression NOS Glaucoma Allergic rhinitis Hyperammonemia Evaluated by Dr. Headley /neurology Transition depakote 500q6 from IV to po. Continue topiramate 50 mg by tube every 8 hours valproic acid level was 80 11/11 Ammonia level increasing -suspect secondary to depakote as there does not seem to be alternative explanation. Given that she has been on depakote for many years with relatively good sz control (except when off topamax) and has intolerance to other anticonvulsants, may want to continue depakote and monitor since she does not seem to be having encephalopathy associated with the hyperammonemia. Discussed with Dr. Ha who is the covering neurologist, she would defer to Dr. Headley who has followed patient fpc as outpatient. Held venlafaxine 37.5 mg daily - can lower seizure threshold. CT brain 11/08 - no acute abnormality MRI brain 11/09 revealed enlargement of the CSF spaces especially the lateral ventricles is stable. There is no evidence of restricted diffusion, acute hemorrhage, mass effect or edema. EEG 11/09 revealed no epileptiform activity Artificial tears 1 gtt OU 3 times a day Continue latanoprost 0.005% 1 drop each eye at night for glaucoma Holding bimatoprost 0.01% Currently holding fluticasone spray 50 mcg. Continue singulair 10 mg daily for allergic rhinitis RESP: Acute respiratory failure - aspiration, resolved Remote history of tobacco abuse Extubated 11/12. On room air. Albuterol/ipratropium aerosols every 6 hours with albuterol aerosols every 2 hours as needed dyspnea CV: Hypertension Hyperlipidemia - elevated triglycerides and low HDL Chronic diastolic heart failure Continue aspirin 81 mg by mouth daily Continue lisinopril 20 mg by mouth daily for hypertension. Remains hypertensive. Add metoprolol 25 mg by mouth twice a day Continue Ezetimibe 10 mg by mouth daily for dyslipidemia As needed labetalol/hydralazine for hypertension Echo 12/25/14EF 60-65%, grade 1 diastolic dysfunction GI: Obese GERD Elevated lipase of unclear significance Elevated ammonia Lipase normalized and she is asymptomatic. Lansoprazole 30 mg by tube daily for GI prophylaxis Docusate sodium/senna 1 tablet twice a day for bowel regimen On lactulose 30 cc bid for elevated ammonia, having BMs Level with slight uptrend that may be secondary to depakote Will check liver u/s to eval for cirrhosis. She was never a daily drinker...is obese and could have JASON FEN/RENAL/: Urinary incontinence Hypophosphatemia Resume oxybutynin 10 mg daily Voiding ID: Aspiration pneumonitis Asymptomatic Candiduria - catheter out. Placed on piperacillin/tazobactam 11/09 due to aspiration with low grade fevers. #4. Had previously been on 2 days of cefdinir started 11/07. Clinically improved. Transition to po antibiotic at discharge for 7-8 day course. Avoid fluoroquinolone because can lower seizure threshold. She has cefdinir at home already so could complete couple more days of that and stop. She reportedly was started on an outpatient antibiotic 2 days [employer] for her sinuses. She took her antibiotic already 11/08 - CEFDINIR [address] brain/head revealed no signs of sinusitis. Pertinent cultures 11/09 - blood cultures 2 - no growth 11/09 - sputum -ineg Influenza negative UA culture ordered 11/10 - yeast HEME: Erythrocyte macrocytosis. Leukocytosis - neutrophil predominant Check B - WNL TSH normal. Peripheral smear 11/09- mild macrocytosis and minimal leukocytosis with reactive features. No indication for transfusion of blood products at this time ENDO: Hypothyroidism Hyperglycemia Continue levothyroxine 75 g by mouth daily. TSH 0.54 Sliding-scale insulin with Novulog with Accu-Cheks every 6 hours to maintain euglycemia/low regimen MSK: Osteoporosis Elevated BMI Alendronate unknown dosage at home. Hold. PT evaluate and treat Weight loss will be encouraged PROPH: Enoxaparin 40 mg subcutaneous daily for DVT prophylaxis. Lansoprazole 30 mg daily for stress ulcer prophylaxis and history of GERD on PPI at home. ACCESS: Peripheral IV providing adequate access at this time. Discussed with patient at bedside. Out of bed, PT, anticonvulsant and followup plan with Dr. Headley, hopefully home tomorrow. Level II follow-up Problem Qualifiers (1) Hypertension: Qualified Codes: I10 - Essential (primary) hypertension Mita Guerra MD Nov 12, 2017 17:05
--- NOTE | 2017-11-12 20:15 | RADRPT ---
EXAM DATE/TIME: 11/12/2017 18:34 [place] COMPARISON: No previous studies available for comparison. INDICATIONS : Elevated lab values. MEDICAL HISTORY : Hypothyroidism. Hypercholesterolemia. Hypertension. Seizures. Asthma. Ulcer. Arthritis. Osteoporosis. SURGICAL HISTORY : Hysterectomy. section. Cataract removal. Bilateral knee replacement. ENCOUNTER: Initial ACUITY: 1 day PAIN SCORE: 0/10 LOCATION: Bilateral upper quadrant MEASUREMENTS: LIVER: 17.7 cm length COMMON DUCT: 5 mm RIGHT KIDNEY: 12.6 x 4.8 x 5.2 cm SPLEEN: 12.5 cm length FINDINGS: The gallbladder is intact without any evidence for gallstones, gallbladder wall thickening, or perich olecystic fluid. The visualized liver, head of the pancreas, and right kidney appear grossly intact for technique. Right pleural effusion is seen. CONCLUSION: Unremarkable study except for right pleural effusion. Subha Berman MD on November 12, 2017 at 20:12 Board Certified Radiologist. This report was verified electronically.
[2017-11-12] MEDS: MONTELUKAST SODIUM 10 MG TAB PO SCH (23:02)
[2017-11-12] MEDS: LATANOPROST 0.005% OPHT SOLN 2.5 ML BTL EACH EYE SCH (23:03)
[2017-11-12] MEDS: ENOXAPARIN SODIUM 40 MG/0.4 ML SYRINGE SQ SCH (23:16)
[2017-11-13] VITALS (7 sets, daily range): BP systolic 168–193; BP diastolic 73–81; PULSE 60–68; RESP 17–20; TEMP 97.9–98.4; O2SAT 92–96
[2017-11-13] MEDS: VALPROIC ACID 250 MG CAP PO SCH ×4 (02:08→18:00)
[2017-11-13] MEDS: INSULIN ASPART SUPPLEMENTAL SCALE SQ SCH ×4 (02:08→21:00)
[2017-11-13] MEDS: RESP: ALBUTEROL 2.5 MG/IPRATROPIUM 0.5 MG NEB (SCH) NEB ×4 (02:51→21:17)
[2017-11-13] MEDS: CHLORHEXIDINE GLUCONATE 2 % 1 PACK (2 CLOTHS) TOP SCH (03:40)
[2017-11-13 04:18] LABS: ALBUMIN 2.5 GM/DL (3.4-5.0); AST (GOT) 15 U/L (15-37); BICARBONATE 24.5 MEQ/L (21.0-32.0); BLOOD UREA NITROGEN 15 MG/DL (7-18); CALCIUM 9.1 MG/DL (8.5-10.1); CHLORIDE 110 MEQ/L (98-107); CREATININE 0.52 MG/DL (0.50-1.00); GLOMERULAR FILTRATION RATE 117 ML/MIN (>89); GLUCOSE,RANDOM 82 MG/DL (74-106); SODIUM (NA) 143 MEQ/L (136-145)
[2017-11-13 04:19] LABS: ALT (GPT) 11 U/L (10-53)
[2017-11-13 04:21] LABS: ALKALINE PHOSPHATASE 37 U/L (45-117); TOTAL BILIRUBIN ADULT 0.4 MG/DL (0.2-1.0); TOTAL PROTEIN 6.2 GM/DL (6.4-8.2)
[2017-11-13] MEDS ORDERED: METOPROLOL TARTRATE 25 MG TAB PO PRN (05:00)
[2017-11-13] MEDS: ARTIFICIAL TEARS OPTH SOLN 15 ML BTL EACH EYE SCH ×3 (05:43→22:00)
[2017-11-13] MEDS: LEVOTHYROXINE SODIUM 75 MCG TAB PO SCH (05:43)
[2017-11-13] MEDS: PIPERACIL-TAZO 4.5 GM PREMIX 100 ML IV SCH ×3 (05:43→17:41)
[2017-11-13] MEDS: TOPIRAMATE 25 MG TAB PO SCH ×3 (05:43→22:24)
[2017-11-13] MEDS: CHLORHEXIDINE 0.12% (ORAL KIT) 15 ML CUP MT SCH ×2 (08:00→20:00)
--- NOTE | 2017-11-13 08:33 | HHI.PR ---
Subjective Remarks No seizures overnight. Feels much better today. Wants to go home however physical therapy recommends rehabilitation. No fever or chills no nausea or vomiting no diarrhea or constipation. Objective Vitals Vital Signs Date Time Temp Pulse Resp B/P (MAP) Pulse Ox O2 Delivery O2 Flow Rate FiO2 11/13/17 07:50 98.4 68 18 179/79 (112) 94 11/13/17 04:30 98.2 63 17 181/80 (113) 96 11/13/17 01:20 97.9 65 20 182/81 (114) 92 11/12/17 21:45 96 11/12/17 20:30 98.2 66 17 175/79 (111) 96 11/12/17 16:00 72 11/12/17 16:00 98.9 74 15 96 11/12/17 15:54 75 176/75 (108) 11/12/17 14:00 79 11/12/17 12:00 98.7 70 15 153/67 (95) 96 11/12/17 12:00 70 11/12/17 10:00 77 11/12/17 09:55 96 I/O 11/12/17 11/12/17 11/12/17 11/13/17 11/13/17 11/13/17 07:00 15:00 23:00 07:00 15:00 23:00 Intake Total 105 ml 240 ml Balance 105 ml 240 ml Intake Oral 240 ml IV Total 105 ml # Voids 2 4 3 # Bowel Movements 2 Result Diagram: 11/12/17 0335 11/13/17 0339 Imaging Last Impressions Liver Ultrasound 11/12/17 0000 Signed Impressions: Service Date/Time: Sunday, November 12, 2017 18:34 - CONCLUSION: Unremarkable study except for right pleural effusion. Subha Berman MD Chest X-Ray 11/11/17 0600 Signed Impressions: Service Date/Time: Saturday, November 11, 2017 03:41 - CONCLUSION: No significant change. Bautista Wynne MD Brain MRI 11/09/17 0000 Signed Impressions: Service Date/Time: October 12:08 - CONCLUSION: Stable MRI of the brain demonstrating generalized volume loss with enlargement of the ventricles but no evidence of acute infarct, hemorrhage, mass or edema. Ken Avila MD Head CT 11/08/17 0000 Signed Impressions: Service Date/Time: Wednesday, November 08, 2017 18:30 - CONCLUSION: 1. No acute intracranial abnormality. Adin Sanchez MD Objective Remarks GENERAL: 67-year-old female, resting in bed on CPAP. CARDIOVASCULAR: RRR. S1, S2. No S4. RESPIRATORY: Few coarse crackles appreciated bilaterally anteriorly. No wheezes. GASTROINTESTINAL: Abdomen soft, nondistended. No apparent tenderness. Bowel sounds present. : Pure wick in place, wetting bed. MUSCULOSKELETAL: Extremities without clubbing, cyanosis, or edema. Scar overlying right shoulder is well-healed. NEUROLOGICAL: Alert with eyes open and nods and shakes head in answer to questions. Cranial nerves 2 through 12 grossly intact. Follows commands with all extremities. Procedures Intubated by E VAC 11/08/17 A/P Assessment and Plan Status epilepticus Seizure disorder NOS Depression NOS Glaucoma Allergic rhinitis Dr. Headley /neurology ff Currently on valproic acid 500 mg IV every 8 hours and topiramate 50 mg by tube every 8 hours Recheck valproic acid . 11/11 is 80. Held venlafaxine 37.5 mg daily - can lower seizure threshold. CT brain 11/08 - no acute abnormality MRI brain 11/09 revealed enlargement of the CSF spaces especially the lateral ventricles is stable. There is no evidence of restricted diffusion, acute hemorrhage, mass effect or edema. EEG 11/09 revealed no epileptiform activity Artificial tears 1 gtt OU 3 times a day Continue latanoprost 0.005% 1 drop each eye at night for glaucoma Holding bimatoprost 0.01% Currently holding fluticasone spray 50 mcg. Continue singulair 10 mg daily for allergic rhinitis Depakote level is high. His increase valproic acid to 500 3 times a day and to have 250 at night. Continue Topamax. Cleared By neurology for discharge. Acute respiratory failure - aspiration. Was intubated/extubated Remote history of tobacco abuse [facility] 14/500/11/17/39 Ventilator bundle Albuterol/ipratropium aerosols every 6 hours with albuterol aerosols every 2 hours as needed dyspnea Tolerating CPAP. Gave Lasix 20 mg IV. Extubate 11/01. Chest x-ray shows satisfactory endotracheal tube position. Small left basilar infiltrate. Recheck in a.m. 12/30 CV: Hypertension Hyperlipidemia - elevated triglycerides and low HDL normal saline at 84 cc an hour -- > KVO. Continue aspirin 81 mg by mouth daily Continue lisinopril 20 mg by mouth daily for hypertension Continue Ezetimibe 10 mg by mouth daily for dyslipidemia As needed labetalol/hydralazine for hypertension GI: GERD Elevated lipase of unclear significance Elevated ammonia Lipase normalized and she is asymptomatic. Lansoprazole 30 mg by tube daily for GI prophylaxis Docusate sodium/senna 1 tablet twice a day for bowel regimen On lactulose 30 cc daily for elevated ammonia. Level is 61 11/11 ? depakote. D/c tube feeds. Swallow eval and advanced diet as appropriate. Urinary incontinence Hypophosphatemia Resume oxybutynin 10 mg daily D/c purewick which is not working. Monitor intake and output. Monitor electrolytes. Replace electrolytes per ICU electrolyte replacement protocol. 30 mmol K-Phos IV 1 now. Recheck in a.m. Aspiration pneumonitis With low-grade fevers currently on piperacillin/tazobactam 11/09 #3. She reportedly was started on an outpatient antibiotic 2 days ago for her sinuses. She took her antibiotic already 11/08 - CEFDINIR [address] brain/head revealed no signs of sinusitis. Pertinent cultures 11/09 - blood cultures 2 - no growth 11/09 - sputum -immature growth. Influenza negative UA culture ordered 11/10 Erythrocyte macrocytosis. Leukocytosis - neutrophil predominant Check B - WNL TSH normal. Peripheral smear 11/09- mild macrocytosis and minimal leukocytosis with reactive features. No indication for transfusion of blood products at this time Hypothyroidism Hyperglycemia Continue levothyroxine 75 g by mouth daily. TSH 0.54 Sliding-scale insulin with Novulog with Accu-Cheks every 6 hours to maintain euglycemia/low regimen Osteoporosis Elevated BMI Alendronate unknown dosage at home. Hold. PT evaluate and treat Weight loss will be encouraged PROPH: Enoxaparin 40 mg subcutaneous daily for DVT prophylaxis. Lansoprazole 30 mg daily for stress ulcer prophylaxis and history of GERD on PPI at home. DC plan: Plan to discharge to rehabilitation today. Discussed with Dr. Headley neurology cleared the patient for discharge. Rae King MD Nov 13, 2017 08:33
[2017-11-13] MEDS: SODIUM CHLORIDE 0.9% FLUSH 10 ML FLUSH IV FLUSH SCH ×2 (09:00→21:00)
[2017-11-13] MEDS: OXYBUTYNIN CHLORIDE 5 MG TAB PO SCH (09:00)
--- NOTE | 2017-11-13 10:08 | HHI.PR ---
Review/Management Diagnosis recurrent SZ Plan reduce dose of valproic acid due to elevated level today--reduce to 500mg tid and 250mg Hs continue topamax ok from neuro standpoint to discharge today and follow up with me in office next week. Diagnosis/Plan: Subjective Subjective Comments No acute events reported No seizures. Tolerating anticonvulsants Active Medications Current Medications Medications (Trade) Dose Ordered Sig/Tiera Route Start Time Stop Time Status Last Admin (Ecotrin Ec) 81 mg DAILY PO 11/09/17 09:00 11/12/17 08:13 (Zetia) 10 mg DAILY PO 11/09/17 09:00 11/12/17 08:13 (Synthroid) 75 mcg DAILY@0600 PO 11/09/17 06:00 11/13/17 05:43 (Prinivil) 20 mg DAILY PO 11/09/17 09:00 11/12/17 08:13 (Singulair) 10 mg HS PO 11/08/17 21:00 11/12/17 23:02 (NS Flush) 2 ml UNSCH PRN IV FLUSH 11/08/17 19:45 11/12/17 11:49 (NS Flush) 2 ml BID IV FLUSH 11/08/17 21:00 11/12/17 23:02 (Ativan Inj) 2 mg Q5M PRN IV PUSH 11/08/17 19:45 (Zofran Inj) 4 mg Q6H PRN IV PUSH 11/08/17 19:45 (Lovenox Inj) 40 mg Q24H SQ 11/08/17 20:00 11/12/17 23:16 Miscellaneous Information 1 Q361D XX 11/08/17 19:45 (Chlorhexidine 2% Cloth) 3 pack Taper DAILY@04 TOP 11/09/17 04:00 11/05/18 03:59 11/12/17 04:00 (Chlorhexidine 2% Cloth) 3 pack UNSCH PRN TOP 11/08/17 19:45 (Anahi-Colace) 1 tab BID PO 11/08/17 21:00 11/12/17 23:01 (Milk Of Magnesia Liq) 30 ml Q12H PRN PO 11/08/17 19:45 (Senokot) 17.2 mg Q12H PRN PO 11/08/17 19:45 (Dulcolax Supp) 10 mg DAILY PRN RECTAL 11/08/17 19:45 (Lactulose Liq) 30 ml DAILY PRN PO 11/08/17 19:45 (Peridex 0.12% Liq) 15 ml BID@08,20 MT 11/09/17 08:00 11/11/17 07:43 (D50w (Vial) Inj) 50 ml UNSCH PRN IV PUSH 11/09/17 02:30 (Glucagon Inj) 1 mg UNSCH PRN OTHER 11/09/17 02:30 (NovoLOG SUPPLEMENTAL SCALE) 1 Q6H SQ 11/09/17 03:00 (Xalatan 0.005% Opth Soln) 1 drop HS EACH EYE 11/09/17 21:00 11/12/17 23:03 (Albuterol Neb) 2.5 mg Q2HR NEB PRN NEB 11/09/17 03:45 (Topamax) 50 mg Q8HR PO 11/09/17 09:45 11/13/17 05:43 (Tylenol 650 Mg/ 20 ml Liq) 650 mg Q6H PRN PO 11/09/17 16:30 11/09/17 16:47 (Tears Naturale Opth Soln) 1 drop Q8HR EACH EYE 11/09/17 22:00 11/13/17 05:43 (Prevacid Odt) 30 mg DAILY NG 11/10/17 09:00 11/12/17 09:00 (Duoneb Neb) 1 ampule Q6HR NEB NEB 11/09/17 22:00 11/11/17 21:33 Piperacillin Sod/ Tazobactam Sod 100 ml @ 200 mls/hr Q6H IV 11/09/17 18:00 11/13/17 05:43 (Lactulose Liq) 30 ml BID PO 11/11/17 21:00 11/12/17 23:01 (Ditropan) 10 mg DAILY PO 11/12/17 09:00 11/12/17 08:14 (Lopressor) 25 mg Q12HR PO 11/12/17 13:00 11/12/17 23:01 (Depakene) 500 mg Q6H PO 11/12/17 13:00 11/13/17 02:08 (Lopressor) 25 mg UNSCH X1 PRN PO 11/13/17 05:00 11/13/17 12:00 Allergies Allergies Coded Allergies fluconazole (Unverified Allergy, Severe, 08/05/17) hydromorphone (Unverified Allergy, Severe, 08/05/17) levetiracetam (Unverified Allergy, Severe, Anaphylaxis, 08/05/17) rifampin (Unverified Allergy, Severe, 08/05/17) phenytoin (Unverified Allergy, Mild, Rash, 08/05/17) Exam I&O / VS 11/13/17 11/13/17 11/14/17 15:00 23:00 07:00 # Voids 1 Vital Signs Date Time Temp Pulse Resp B/P (MAP) Pulse Ox O2 Delivery O2 Flow Rate FiO2 11/13/17 07:50 98.4 68 18 179/79 (112) 94 11/13/17 04:30 98.2 63 17 181/80 (113) 96 11/13/17 01:20 97.9 65 20 182/81 (114) 92 11/12/17 21:45 96 11/12/17 20:30 98.2 66 17 175/79 (111) 96 11/12/17 16:00 72 11/12/17 16:00 98.9 74 15 96 11/12/17 15:54 75 176/75 (108) 11/12/17 14:00 79 11/12/17 12:00 98.7 70 15 153/67 (95) 96 11/12/17 12:00 70 Exam Comments alert, follow ing commands, speech normal CN perrl, eom intact MOTOR no focal deficit Objective Micro and Labs Laboratory Tests Test 11/13/17 03:39 Blood Urea Nitrogen 15 Creatinine 0.52 Random Glucose 82 Total Protein 6.2 Albumin 2.5 Calcium Level 9.1 Alkaline Phosphatase 37 Aspartate Amino Transf (AST/SGOT) 15 Alanine Aminotransferase (ALT/SGPT) 11 Total Bilirubin 0.4 Sodium Level 143 Potassium Level 3.5 Chloride Level 110 Carbon Dioxide Level 24.5 Anion Gap 9 Estimat Glomerular Filtration Rate 117 Ammonia 59 Valproic Acid (Depakene) Level 109 Date/Time Source Procedure Growth Status 11/09/17 16:50 Blood Peripheral Aerobic Blood Culture - Preliminary NO GROWTH IN 3 DAYS Resulted 11/09/17 16:50 Blood Peripheral Anaerobic Blood Culture - Preliminary NO GROWTH IN 3 DAYS Resulted 11/09/17 17:00 Sputum Endotracheal Gram Stain - Final Complete 11/09/17 17:00 Sputum Endotracheal Sputum Culture - Final HEAVY GROWTH NORMAL RESPIRATORY EZEKIEL Complete 11/10/17 18:40 Urine Catheterized Urine Urine Culture - Preliminary Yeast Species Resulted Loy Headley MD PhD Nov 13, 2017 10:08
[2017-11-13] MEDS ORDERED: VALP250 PO (10:14)
[2017-11-13] MEDS ORDERED: METO25TA3 PO (10:14)
--- NOTE | 2017-11-13 10:14 | HHI.DS ---
Discharge Summary Admission Date Nov 08, 2017 at 19:06 Discharge Date: Nov 13, 2017 Admitting Diagnosis status epelipticus, dehydration (1) Obesity (BMI 30-39.9) ICD Code: E66.9 - Obesity, unspecified Status: Chronic (2) Altered mental status ICD Code: R41.82 - Altered mental status, unspecified Status: Acute (3) Seizure ICD Code: R56.9 - Unspecified convulsions (4) Aspiration into airway ICD Code: T17.998A - Aspiration into airway Status: Acute (5) Dyslipidemia ICD Code: E78.5 - Dyslipidemia Status: Chronic (6) Hypothyroidism ICD Code: E03.9 - Hypothyroidism Status: Chronic Procedures Intubated by E VAC 11/08/17 Brief History - From Admission 67 yo WF with PMH of seizure disorder, HTN, Hyperlipidemia, hypothyroidism, seasonal allergies, depression, GERD who presents to [facility] emergency department following a seizure. Her states that they laid down to take a nap and he was awoken when he felt her shaking in bed with tonic clonic activity. She vomited and he rolled her onto her left side. He estimates that seizure activity lasted for 15 minutes. When E VAC arrived reportedly her GCS was 3. Her sats were in the high 80s on room air. She was intubated in the field for airway protection following administration of Ativan and etomidate. Versed drip was initiated in the ED. CT brain showed no acute abnormality. Her states she was diagnosed with seizures "many years ago " and he states she was controlled for years. She was admitted after she was intubated for seizure on 08/05/17 which occurred while she was on depakote and had recently stopped topamax. Topamax was restarted during that admission and she was discharged on Topamax by her states it was later discontinued. She has been following up with Dr. Headley every few weeks for adjustment of her Depakote based on laboratory monitoring. He states she has been taking alternating doses of 1000 mg one morning and 500 mg the next morning with 500 mg nightly. He states he saw Dr. Headley earlier today and level was supratherapeutic (he states 132). She has been feeling well overall without complaints of headache or fever. She has had allergy symptoms and was started on an unknown antibiotic for "her sinuses" 2 days ago. CBC/BMP: 11/12/17 0335 11/13/17 0339 Significant Findings Laboratory Tests Test 11/11/17 03:16 11/12/17 03:35 11/13/17 03:39 White Blood Count 11.1 TH/MM3 (4.0-11.0) Red Blood Count 3.18 MIL/MM3 (4.00-5.30) 3.01 MIL/MM3 (4.00-5.30) Hemoglobin 10.8 GM/DL (11.6-15.3) 10.2 GM/DL (11.6-15.3) Hematocrit 32.9 % (35.0-46.0) 31.8 % (35.0-46.0) Mean Corpuscular Volume 103.5 FL (80.0-100.0) 105.5 FL (80.0-100.0) Neutrophils (%) (Auto) 76.3 % (16.0-70.0) Neutrophils # (Auto) 8.5 TH/MM3 (1.8-7.7) Random Glucose 125 MG/DL (74-106) Total Protein 5.8 GM/DL (6.4-8.2) 6.2 GM/DL (6.4-8.2) Albumin 2.4 GM/DL (3.4-5.0) 2.5 GM/DL (3.4-5.0) Calcium Level 8.2 MG/DL (8.5-10.1) Phosphorus Level 2.2 MG/DL (2.5-4.9) Alkaline Phosphatase 35 U/L (45-117) 37 U/L (45-117) Aspartate Amino Transf (AST/SGOT) 8 U/L (15-37) Chloride Level 112 MEQ/L (98-107) 113 MEQ/L (98-107) 110 MEQ/L (98-107) Ammonia 61 MCMOL/L (11-32) 69 MCMOL/L (11-32) 59 MCMOL/L (11-32) Platelet Count 143 TH/MM3 (150-450) Monocytes (%) (Auto) 8.7 % (0.0-8.0) Eosinophils (%) (Auto) 5.0 % (0.0-4.0) Valproic Acid (Depakene) Level 109 MCG/ML (50-100) Imaging Last Impressions Liver Ultrasound 11/12/17 0000 Signed Impressions: Service Date/Time: Sunday, November 12, 2017 18:34 - CONCLUSION: Unremarkable study except for right pleural effusion. Subha Berman MD Chest X-Ray 11/11/17 0600 Signed Impressions: Service Date/Time: Saturday, November 11, 2017 03:41 - CONCLUSION: No significant change. Bautista Wynne MD Brain MRI 11/09/17 0000 Signed Impressions: Service Date/Time: October 12:08 - CONCLUSION: Stable MRI of the brain demonstrating generalized volume loss with enlargement of the ventricles but no evidence of acute infarct, hemorrhage, mass or edema. Ken Avila MD Head CT 11/08/17 0000 Signed Impressions: Service Date/Time: Wednesday, November 08, 2017 18:30 - CONCLUSION: 1. No acute intracranial abnormality. Adin Sanchez MD PE at Discharge GENERAL: 67-year-old female, resting in bed on CPAP. CARDIOVASCULAR: RRR. S1, S2. No S4. RESPIRATORY: Few coarse crackles appreciated bilaterally anteriorly. No wheezes. GASTROINTESTINAL: Abdomen soft, nondistended. No apparent tenderness. Bowel sounds present. : Pure wick in place, wetting bed. MUSCULOSKELETAL: Extremities without clubbing, cyanosis, or edema. Scar overlying right shoulder is well-healed. NEUROLOGICAL: Alert with eyes open and nods and shakes head in answer to questions. Cranial nerves 2 through 12 grossly intact. Follows commands with all extremities. Transfer Summary 67 yo WF with PMH of seizure disorder, HTN, Hyperlipidemia, hypothyroidism, seasonal allergies, depression, GERD who presents to [facility] emergency department following a seizure. Her states that they laid down to take a nap and he was awoken when he felt her shaking in bed with tonic clonic activity. She vomited and he rolled her onto her left side. He estimates that seizure activity lasted for 15 minutes. When E GEOVANNI arrived reportedly her GCS was 3. Her sats were in the high 80s on room air. She was intubated in the field for airway protection following administration of Ativan and etomidate. Versed drip was initiated in the ED. CT brain showed no acute abnormality. Her states she was diagnosed with seizures "many years ago " and he states she was controlled for years. She was admitted after she was intubated for seizure on 08/05/17 which occurred while she was on depakote and had recently stopped topamax. Topamax was restarted during that admission and she was discharged on Topamax by her states it was later discontinued. She has been following up with Dr. Headley every few weeks for adjustment of her Depakote based on laboratory monitoring. He states she has been taking alternating doses of 1000 mg one morning and 500 mg the next morning with 500 mg nightly. He states he saw Dr. Headley earlier today and level was supratherapeutic (he states 132). She has been feeling well overall without complaints of headache or fever. She has had allergy symptoms and was started on an unknown antibiotic for "her sinuses" 2 days ago. 11/09: Tmax 100.7. Currently 100. Currently sedated on midazolam drip at 2 mg now on propofol drip at 10 mics grams per kilogram per minute. MRI brain showed no acute intrarenal findings/EEG showed no epileptiform activity. Hemodynamically stable. 11/10: Tmax 100.7. Currently 100. Being weaned off all sedation and off 1 hours. Slightly weak on the right upper externa. However following commands on the left upper extremity. Results from spontaneous breathing trials pending. Tolerating tube feeding. No bowel movement 11/11 Following commands all extremities on vent. Tolerated CPAP 10 over 5 all night. Does have moderate respiratory secretions, but good cough. CXR stable. WBC stable 11. RSBI in 30s. Coarse breath sounds are now better after response to Lasix. Subjective: 11/12 Tolerated extubation on 11/11. No further seizures. WBC normalize. Afebrile. Sat up at edge of bed yesterday with PT. PT didnt come today, has not been out of bed. Hospital Course Status epilepticus Seizure disorder NOS Depression NOS Glaucoma Allergic rhinitis Dr. Headley /neurology ff Currently on valproic acid 500 mg IV every 8 hours and topiramate 50 mg by tube every 8 hours Recheck valproic acid . 11/11 is 80. Held venlafaxine 37.5 mg daily - can lower seizure threshold. CT brain 11/08 - no acute abnormality MRI brain 11/09 revealed enlargement of the CSF spaces especially the lateral ventricles is stable. There is no evidence of restricted diffusion, acute hemorrhage, mass effect or edema. EEG 11/09 revealed no epileptiform activity Artificial tears 1 gtt OU 3 times a day Continue latanoprost 0.005% 1 drop each eye at night for glaucoma Holding bimatoprost 0.01% Currently holding fluticasone spray 50 mcg. Continue singulair 10 mg daily for allergic rhinitis Depakote level is high. His increase valproic acid to 500 3 times a day and to have 250 at night. Continue Topamax. Cleared By neurology for discharge. Acute respiratory failure - aspiration. Was intubated/extubated Remote history of tobacco abuse [facility] 14/11/17/39 Ventilator bundle Albuterol/ipratropium aerosols every 6 hours with albuterol aerosols every 2 hours as needed dyspnea Tolerating CPAP. Gave Lasix 20 mg IV. Extubate 11/01. Chest x-ray shows satisfactory endotracheal tube position. Small left basilar infiltrate. Recheck in a.m. 11/11 CV: Hypertension Hyperlipidemia - elevated triglycerides and low HDL normal saline at 84 cc an hour -- > KVO. Continue aspirin 81 mg by mouth daily Continue lisinopril 20 mg by mouth daily for hypertension Continue Ezetimibe 10 mg by mouth daily for dyslipidemia As needed labetalol/hydralazine for hypertension GI: GERD Elevated lipase of unclear significance Elevated ammonia Lipase normalized and she is asymptomatic. Lansoprazole 30 mg by tube daily for GI prophylaxis Docusate sodium/senna 1 tablet twice a day for bowel regimen On lactulose 30 cc daily for elevated ammonia. Level is 61 11/11 ? depakote. D/c tube feeds. Swallow eval and advanced diet as appropriate. Urinary incontinence Hypophosphatemia Resume oxybutynin 10 mg daily D/c purewick which is not working. Monitor intake and output. Monitor electrolytes. Replace electrolytes per ICU electrolyte replacement protocol. 30 mmol K-Phos IV 1 now. Recheck in a.m. Aspiration pneumonitis With low-grade fevers currently on piperacillin/tazobactam 11/09 #3. She reportedly was started on an outpatient antibiotic 2 days ago for her sinuses. She took her antibiotic already 11/08 - CEFDINIR [address] brain/head revealed no signs of sinusitis. Pertinent cultures 11/09 - blood cultures 2 - no growth 11/09 - sputum -immature growth. Influenza negative UA culture ordered 11/10 Erythrocyte macrocytosis. Leukocytosis - neutrophil predominant Check B - WNL TSH normal. Peripheral smear 11/09- mild macrocytosis and minimal leukocytosis with reactive features. No indication for transfusion of blood products at this time Hypothyroidism Hyperglycemia Continue levothyroxine 75 g by mouth daily. TSH 0.54 Sliding-scale insulin with Novulog with Accu-Cheks every 6 hours to maintain euglycemia/low regimen Osteoporosis Elevated BMI Alendronate unknown dosage at home. Hold. PT evaluate and treat Weight loss will be encouraged PROPH: Enoxaparin 40 mg subcutaneous daily for DVT prophylaxis. Lansoprazole 30 mg daily for stress ulcer prophylaxis and history of GERD on PPI at home. DC plan: Discharge to rehabilitation today. Discussed with Dr. Headley neurology cleared the patient for discharge. To follow up as OP in 1 week with Gal[facility]. To follow up as OP with PCP and consultants as OP. Pt Condition on Discharge: Stable Discharge Disposition: Discharge to SNF Discharge Time: > 30 minutes Discharge Instructions DIET: Follow Instructions for: Heart Healthy Diet Activities you can perform: Regular-No Restrictions Follow up Referrals: Neurology - 1 Week with Loy Headley MD PhD PCP Follow-up - 2-3 Days New Medications: Metoprolol Tartrate (Metoprolol Tartrate) 25 Mg Tab 25 MG PO Q12HR for Blood Pressure Management, #60 TAB Topiramate (Topamax) 25 Mg Tab 50 MG PO Q8HR for seizure , #60 TAB Valproic Acid (Depakene) 250 Mg Cap 250 MG PO HS for seizures, #30 CAP Continued Medications: Alendronate (Alendronate) 70 Mg Tab 70 MG PO Q7D for Osteporosis Treatment, #4 TAB [address] (Aspir-81) 81 Mg Tabdr 81 MG PO DAILY Bimatoprost Opth Drops (Lumigan Opth Drops) 0.01% Soln 1 DROP EACH EYE HS for Intraocular Pressure, #1 BOTTLE 0 Refills Ezetimibe (Ezetimibe) 10 Mg Tab 10 MG PO DAILY, #30 TAB 0 Refills Levothyroxine (Levothyroxine) 75 Mcg Tab 75 MCG PO DAILY for Thyroid, #30 TAB 0 Refills Lisinopril (Lisinopril) 20 Mg Tab 20 MG PO DAILY for hypertension for 30 Days, #30 TAB 0 Refills Montelukast (Montelukast) 10 Mg Tab 10 MG PO HS, #30 TAB 0 Refills Oxybutynin (Ditropan) 5 Mg Tab 10 MG PO DAILY for Urinary Symptom Managemen, #60 TAB 0 Refills Oxybutynin (Ditropan) 5 Mg Tab 5 MG PO DAILY for Urinary Symptom Managemen, #60 TAB 0 Refills Valproic Acid (Valproic Acid) 250 Mg Cap 500 MG PO TID for seizure for 30 Days, #90 CAP 0 Refills Rae King MD Nov 13, 2017 10:14
[2017-11-13] MEDS ORDERED: ENALAPRILAT 2.5 MG/2 ML VIAL IV PUSH PRN (10:15)
[2017-11-13] MEDS ORDERED: TOPI25 PO (10:17)
[2017-11-13] MEDS: LANSOPRAZOLE SOLUTAB 30 MG TAB NG SCH (10:26)
[2017-11-13] MEDS: EZETIMIBE 10 MG TAB PO SCH (10:26)
[2017-11-13] MEDS: METOPROLOL TARTRATE 25 MG TAB PO SCH ×2 (10:26→21:00)
[2017-11-13] MEDS: LACTULOSE SYRUP 20 GM/30 ML CUP PO SCH ×2 (10:26→22:24)
[2017-11-13] MEDS: DOCUSATE SODIUM 50 MG/SENNA 8.6 MG TAB PO SCH ×2 (10:27→22:24)
[2017-11-13] MEDS: ASPIRIN EC 81 MG TABEC PO SCH (10:27)
[2017-11-13] MEDS: LISINOPRIL 20 MG TAB PO SCH (10:27)
[2017-11-13] MEDS ORDERED: AUGM875T3 PO (12:40)
[2017-11-13] MEDS ORDERED: LACTCHW3 CHEW (12:40)
[2017-11-13] MEDS ORDERED: DIVALPROEX SODIUM E.R. 250 MG TAB PO SCH (21:00)
[2017-11-13] MEDS: LATANOPROST 0.005% OPHT SOLN 2.5 ML BTL EACH EYE SCH (21:00)
[2017-11-13] MEDS: ENOXAPARIN SODIUM 40 MG/0.4 ML SYRINGE SQ SCH (22:24)
[2017-11-13] MEDS: MONTELUKAST SODIUM 10 MG TAB PO SCH (22:24)
[2017-11-14] VITALS: BP 190/86; PULSE 57; RESP 18; TEMP 98.1; O2SAT 94
[2017-11-14] MEDS: INSULIN ASPART SUPPLEMENTAL SCALE SQ SCH ×2 (03:00→08:33)
[2017-11-14 04:00] VITALS: BP 171/76; PULSE 61; RESP 18; TEMP 98; O2SAT 92
[2017-11-14] MEDS: CHLORHEXIDINE GLUCONATE 2 % 1 PACK (2 CLOTHS) TOP SCH (04:00)
[2017-11-14] MEDS: ARTIFICIAL TEARS OPTH SOLN 15 ML BTL EACH EYE SCH (06:00)
[2017-11-14] MEDS: PIPERACIL-TAZO 4.5 GM PREMIX 100 ML IV SCH ×3 (06:02→12:54)
[2017-11-14] MEDS: TOPIRAMATE 25 MG TAB PO SCH ×2 (06:03→12:54)
[2017-11-14] MEDS: LEVOTHYROXINE SODIUM 75 MCG TAB PO SCH (06:03)
[2017-11-14 08:23] VITALS: BP 177/78; PULSE 61; RESP 18; TEMP 97.7; O2SAT 94
[2017-11-14] MEDS: LISINOPRIL 20 MG TAB PO SCH (08:30)
[2017-11-14] MEDS: LACTULOSE SYRUP 20 GM/30 ML CUP PO SCH (08:30)
[2017-11-14] MEDS: EZETIMIBE 10 MG TAB PO SCH (08:31)
[2017-11-14] MEDS: METOPROLOL TARTRATE 25 MG TAB PO SCH (08:31)
[2017-11-14] MEDS: LANSOPRAZOLE SOLUTAB 30 MG TAB NG SCH (08:31)
[2017-11-14] MEDS: ASPIRIN EC 81 MG TABEC PO SCH (08:31)
[2017-11-14] MEDS: DOCUSATE SODIUM 50 MG/SENNA 8.6 MG TAB PO SCH (08:31)
[2017-11-14] MEDS: VALPROIC ACID 250 MG CAP PO SCH ×2 (08:32→12:53)
[2017-11-14] MEDS: OXYBUTYNIN CHLORIDE 5 MG TAB PO SCH (08:32)
[2017-11-14] MEDS: SODIUM CHLORIDE 0.9% FLUSH 10 ML FLUSH IV FLUSH SCH (08:33)
--- NOTE | 2017-11-14 08:38 | HHI.PR ---
Subjective Remarks Feels better. no seizures overnight. No n/v/d/c. Denies chest forrest or sob Objective Vitals Vital Signs Date Time Temp Pulse Resp B/P (MAP) Pulse Ox O2 Delivery O2 Flow Rate FiO2 11/14/17 08:23 97.7 61 18 177/78 (111) 94 11/14/17 04:00 98.0 61 18 171/76 (107) 92 11/14/17 00:00 98.1 57 18 190/86 (120) 94 11/13/17 20:00 98.3 64 18 193/78 (116) 93 11/13/17 17:04 98.2 60 18 168/73 (104) 93 11/13/17 16:00 62 11/13/17 11:47 98.3 66 18 169/77 (107) 94 I/O 11/13/17 11/13/17 11/13/17 11/14/17 11/14/17 11/14/17 07:00 15:00 23:00 07:00 15:00 23:00 Intake Total 240 ml Balance 240 ml Intake Oral 240 ml # Voids 3 2 3 3 # Bowel Movements 1 0 Result Diagram: 11/12/17 0335 11/13/17 0339 Imaging Last Impressions Liver Ultrasound 11/12/17 0000 Signed Impressions: Service Date/Time: Sunday, November 12, 2017 18:34 - CONCLUSION: Unremarkable study except for right pleural effusion. Subha Berman MD Chest X-Ray 11/11/17 0600 Signed Impressions: Service Date/Time: Saturday, November 11, 2017 03:41 - CONCLUSION: No significant change. Bautista Wynne MD Brain MRI 11/09/17 0000 Signed Impressions: Service Date/Time: October 12:08 - CONCLUSION: Stable MRI of the brain demonstrating generalized volume loss with enlargement of the ventricles but no evidence of acute infarct, hemorrhage, mass or edema. Ken Avila MD Head CT 11/08/17 0000 Signed Impressions: Service Date/Time: Wednesday, November 08, 2017 18:30 - CONCLUSION: 1. No acute intracranial abnormality. Adin Sanchez MD Objective Remarks GENERAL: 67-year-old female, resting in bed on CPAP. CARDIOVASCULAR: RRR. S1, S2. No S4. RESPIRATORY: Few coarse crackles appreciated bilaterally anteriorly. No wheezes. GASTROINTESTINAL: Abdomen soft, nondistended. No apparent tenderness. Bowel sounds present. : Pure wick in place, wetting bed. MUSCULOSKELETAL: Extremities without clubbing, cyanosis, or edema. Scar overlying right shoulder is well-healed. NEUROLOGICAL: Alert with eyes open and nods and shakes head in answer to questions. Cranial nerves 2 through 12 grossly intact. Follows commands with all extremities. Procedures Intubated by E VAC 11/08/17 A/P Problem List: (1) Obesity (BMI 30-39.9) ICD Code: E66.9 - Obesity, unspecified Status: Chronic (2) Altered mental status ICD Code: R41.82 - Altered mental status, unspecified Status: Acute (3) Seizure ICD Code: R56.9 - Unspecified convulsions (4) Aspiration into airway ICD Code: T17.998A - Aspiration into airway Status: Acute (5) Dyslipidemia ICD Code: E78.5 - Dyslipidemia Status: Chronic (6) Hypothyroidism ICD Code: E03.9 - Hypothyroidism Status: Chronic Assessment and Plan Status epilepticus Seizure disorder NOS Depression NOS Glaucoma Allergic rhinitis Dr. Headley /neurology ff Currently on valproic acid 500 mg IV every 8 hours and topiramate 50 mg by tube every 8 hours Recheck valproic acid . 11/11 is 80. Held venlafaxine 37.5 mg daily - can lower seizure threshold. CT brain 11/08 - no acute abnormality MRI brain 11/09 revealed enlargement of the CSF spaces especially the lateral ventricles is stable. There is no evidence of restricted diffusion, acute hemorrhage, mass effect or edema. EEG 11/09 revealed no epileptiform activity Artificial tears 1 gtt OU 3 times a day Continue latanoprost 0.005% 1 drop each eye at night for glaucoma Holding bimatoprost 0.01% Currently holding fluticasone spray 50 mcg. Continue singulair 10 mg daily for allergic rhinitis Depakote level is high. His increase valproic acid to 500 3 times a day and to have 250 at night. Continue Topamax. Cleared By neurology for discharge. Acute respiratory failure - aspiration. Was intubated/extubated Remote history of tobacco abuse [facility] 14/500//40 Ventilator bundle Albuterol/ipratropium aerosols every 6 hours with albuterol aerosols every 2 hours as needed dyspnea Tolerating CPAP. Gave Lasix 20 mg IV. Extubate 11/01. Chest x-ray shows satisfactory endotracheal tube position. Small left basilar infiltrate. Recheck in a.m. 11/11 CV: Hypertension Hyperlipidemia - elevated triglycerides and low HDL normal saline at 84 cc an hour -- > KVO. Continue aspirin 81 mg by mouth daily Continue lisinopril 20 mg by mouth daily for hypertension Continue Ezetimibe 10 mg by mouth daily for dyslipidemia As needed labetalol/hydralazine for hypertension GI: GERD Elevated lipase of unclear significance Elevated ammonia Lipase normalized and she is asymptomatic. Lansoprazole 30 mg by tube daily for GI prophylaxis Docusate sodium/senna 1 tablet twice a day for bowel regimen On lactulose 30 cc daily for elevated ammonia. Level is 61 11/11 ? depakote. D/c tube feeds. Swallow eval and advanced diet as appropriate. Urinary incontinence Hypophosphatemia Resume oxybutynin 10 mg daily D/c purewick which is not working. Monitor intake and output. Monitor electrolytes. Replace electrolytes per ICU electrolyte replacement protocol. 30 mmol K-Phos IV 1 now. Recheck in a.m. Aspiration pneumonitis With low-grade fevers currently on piperacillin/tazobactam 11/09 #3. She reportedly was started on an outpatient antibiotic 2 days ago for her sinuses. She took her antibiotic already 11/08 - CEFDINIR [address] brain/head revealed no signs of sinusitis. Pertinent cultures 11/09 - blood cultures 2 - no growth 11/09 - sputum -immature growth. Influenza negative UA culture ordered 11/10 Erythrocyte macrocytosis. Leukocytosis - neutrophil predominant Check B - WNL TSH normal. Peripheral smear 11/09- mild macrocytosis and minimal leukocytosis with reactive features. No indication for transfusion of blood products at this time Hypothyroidism Hyperglycemia Continue levothyroxine 75 g by mouth daily. TSH 0.54 Sliding-scale insulin with Novulog with Accu-Cheks every 6 hours to maintain euglycemia/low regimen Osteoporosis Elevated BMI Alendronate unknown dosage at home. Hold. PT evaluate and treat Weight loss will be encouraged PROPH: Enoxaparin 40 mg subcutaneous daily for DVT prophylaxis. Lansoprazole 30 mg daily for stress ulcer prophylaxis and history of GERD on PPI at home. DC plan: Plan to discharge to rehabilitation. Discussed with Dr. Headley neurology cleared the patient for discharge. Case management following for DC plan Rae King MD Nov 14, 2017 08:38
[2017-11-14 12:40] VITALS: BP 152/69; PULSE 56; RESP 18; TEMP 98.1; O2SAT 95
== END 2017-11-14 15:17 | DRG 208 ==
LOC: NEPC 16:32 → NEDA 19:06 → HIME 20:20 → N05B 11-12 18:10
PROVIDERS: ADMIT Hospitalist; ATTEND Hospitalist
PROC: 5A1945Z Respiratory Ventilation, 24-96 Consecutive Hours (ICD-10-PCS; principal; 2017-11-08)
DX: J96.00 Acute respiratory failure, unspecified whether with hypoxia or hypercapnia (principal); J69.0 Pneumonitis due to inhalation of food and vomit; I50.32 Chronic diastolic (congestive) heart failure; I11.0 Hypertensive heart disease with heart failure; E86.0 Dehydration; E72.20 Disorder of urea cycle metabolism, unspecified; B37.49 Other urogenital candidiasis; G40.401 Other generalized epilepsy and epileptic syndromes, not intractable, with status epilepticus; D75.89 Other specified diseases of blood and blood-forming organs; E78.5 Hyperlipidemia, unspecified; R40.2430 Glasgow coma scale score 3-8, unspecified time; E03.9 Hypothyroidism, unspecified; K21.9 Gastro-esophageal reflux disease without esophagitis; R74.8 Abnormal levels of other serum enzymes; E66.9 Obesity, unspecified; R32 Unspecified urinary incontinence; E83.39 Other disorders of phosphorus metabolism; R73.9 Hyperglycemia, unspecified; M19.90 Unspecified osteoarthritis, unspecified site; M81.0 Age-related osteoporosis without current pathological fracture; N32.81 Overactive bladder; H40.9 Unspecified glaucoma; F32.9 Major depressive disorder, single episode, unspecified; Z68.31 Body mass index [BMI] 31.0-31.9, adult; Z87.891 Personal history of nicotine dependence; Z88.1 Allergy status to other antibiotic agents; Z88.5 Allergy status to narcotic agent; Z96.653 Presence of artificial knee joint, bilateral
CPT/HCPCS: 36600; 51702; 70450; 70551; 71010; 76705; 80048; 80053; 80061; 80164; 81001; 82140; 82150; 82550; 82607; 82746; 82805; 82948; 83605; 83690; 83735; 83921; 84100; 84443; 84484; 85025; 85060; 85610; 85730; 87040; 87070; 87086; 87205; 87641; 87804; 93005; 94002; 94003; 94640; 94664; 95819; 96365; 96366; C9113; J1650; J1940; J2250; J2543; J3370; J3475; J7030; J7050

== ENCOUNTER 2017-12-14 14:24 | Inpatient (IN) | payer MEDICARE ==
[2017-12-14] VITALS (10 sets, daily range): BP systolic 141–226; BP diastolic 67–93; PULSE 68–74; RESP 10–20; TEMP 99.6–102.4; O2SAT 94–100
[~2017-12-14] VITALS: Ht 170.2 cm; Wt 93.0 kg
[~2017-12-14 14:24] MED LIST changes: -AMLO5 PO; +AUGM875T3 PO; -DITR15TA PO; +EZET1TAB8 PO; +LABETALOL HCL 100 MG/20 ML VIAL IV ONE; +LACTATED RINGER'S 1000 ML INJ 1,000 ML IV ONE; +LACTCHW3 CHEW; +LIDOCAINE HCL 1% PF 5 ML SYRINGE OTHER ONE; +METO25TA3 PO; +MONT10TA4 PO; +ONDANSETRON HCL 4 MG/2 ML VIAL IV ONE; -OXYB15TA PO; +OXYB5TAB8 PO; +PROPOFOL 200 MG/20 ML AMP IV ONE; +SUCCINYLCHOLINE CHLORIDE 200 MG/10 ML VIAL IV ONE; +TOPI25 PO; -TOPI50TA7 PO; +VALP250 PO; +ePHEDrine/NS 25 MG/5 ML SYRINGE IV ONE
--- NOTE | 2017-12-14 15:16 | RADRPT ---
EXAM DATE/TIME: 12/14/2017 14:39 [facility] COMPARISON: CHEST SINGLE AP, November 11, 2017, 3:41. INDICATIONS : Fever. MEDICAL HISTORY : Hypothyroidism. Hypertension Hypercholesterolemia. seizures, asthma osteoporosis SURGICAL HISTORY : Hysterectomy. ENCOUNTER: Initial ACUITY: 1 day PAIN SCORE: Non-responsive. LOCATION: Bilateral chest FINDINGS: A single view of the chest demonstrates the lungs to be symmetrically aerated without evidence of mas s, infiltrate or effusion. The cardiomediastinal contours are unremarkable. Osseous structures are intact. Spinal hardware remains. The previously noted nasogastric tube and endotracheal tube have bee n removed. CONCLUSION: 1. Interval extubation and removal of nasogastric tube. 2. The lungs are now clear. Mustapha Grossman MD on December 14, 2017 at 15:12 Board Certified Radiologist. This report was verified electronically.
[2017-12-14] MEDS ORDERED: ACETAMINOPHEN 650 MG SUPP RECTAL ONE (15:30)
[2017-12-14 16:06] LABS: AUTOMATED NEUTROPHIL # 6.7 TH/MM3 (1.8-7.7); BASOPHIL % 0.2 % (0.0-2.0); EOSINOPHIL % 0.4 % (0.0-4.0); HEMATOCRIT 41.8 % (35.0-46.0); HEMOGLOBIN 14.1 GM/DL (11.6-15.3); LYMPH % 6.6 % (9.0-44.0); LYMPHOCYTE # 0.5 TH/MM3 (1.0-4.8); MEAN CELL VOLUME 100.9 FL (80.0-100.0); MEAN CORPUSCULAR HEMOGLOBIN 34.1 PG (27.0-34.0); MEAN CORPUSCULAR HGB CONC 33.8 % (32.0-36.0); MEAN PLATELET VOLUME 8.4 FL (7.0-11.0); MONOCYTE # 0.9 TH/MM3 (0-0.9); NEUT % 81.8 % (16.0-70.0); PLATELET COUNT 115 TH/MM3 (150-450); RED BLOOD COUNT 4.14 MIL/MM3 (4.00-5.30); RED CELL DISTRIBUTION WIDTH 14.2 % (11.6-17.2); WHITE BLOOD COUNT 8.2 TH/MM3 (4.0-11.0)
[2017-12-14 16:25] LABS: ALBUMIN 3.5 GM/DL (3.4-5.0); ALT (GPT) 7 U/L (10-53); AST (GOT) 11 U/L (15-37); BICARBONATE 24.4 MEQ/L (21.0-32.0); BLOOD UREA NITROGEN 18 MG/DL (7-18); CALCIUM 8.8 MG/DL (8.5-10.1); CHLORIDE 112 MEQ/L (98-107); CREATININE 0.68 MG/DL (0.50-1.00); GLOMERULAR FILTRATION RATE 86 ML/MIN (>89); GLUCOSE,RANDOM 100 MG/DL (74-106); SODIUM (NA) 144 MEQ/L (136-145)
[2017-12-14 16:27] LABS: ALKALINE PHOSPHATASE 41 U/L (45-117); TOTAL BILIRUBIN ADULT 0.4 MG/DL (0.2-1.0); TOTAL PROTEIN 7.3 GM/DL (6.4-8.2)
--- NOTE | 2017-12-14 17:23 | PD ---
HPI Chief Complaint: Fever Time Seen by Provider: 15:08 Travel History International Travel<30 days: No Contact w/Intl Traveler<30days: No Traveled to known affect area: No History of Present Illness HPI 67-year-old female presents to the emergency room for evaluation of lethargy and fever. Patient has been states she has been lethargic since discharge from the hospital. States he believes it is because of the Topamax. He followed up with his neurologist Dr. Headley one week ago and had outpatient labs performed but has not heard the results of the labs at this time. Patient has been states she spends most of her time in bed. She will walk to the bathroom on her own. She has had no known fevers at home. No cough, congestion, sore throat. He states this morning she did not want to get out of bed so he called 911. Just prior to the ambulance getting there, he reports she was talking nonsense, something about getting the baby. Patient is a poor historian and does not answer questions. She follows commands but does not want to speak. She was observed speaking to her family but will not speak to me. PFSH Past Medical History Arthritis: Yes Asthma: Yes Cancer: No Cardiovascular Problems: Yes High Cholesterol: Yes Congestive Heart Failure: No COPD: No Cerebrovascular Accident: No Diabetes: No Endocrine: Yes Gastrointestinal Disorders: Yes GERD: No Genitourinary: No Hypertension: Yes Immune Disorder: No Implanted Vascular Access Dvce: Yes Musculoskeletal: Yes Neurologic: Yes Psychiatric: No Reproductive: No Respiratory: Yes Migraines: Yes Seizures: Yes Thyroid Disease: Yes (HYPOTHYROIDISM) Ulcer: Yes Tetanus Vaccination: Unknown Menopausal: Yes Past Surgical History Abdominal Surgery: Yes (hyst and ) Body Medical Devices: bilateral knee replacements Cardiac Surgery: No Section: Yes Ear Surgery: No Endocrine Surgery: No Eye Surgery: Yes (cataract removal) Genitourinary Surgery: No Gynecologic Surgery: Yes (, HYSTERECTOMY) Hysterectomy: Yes Joint Replacement: Yes (BILATERAL KNEE REPLACEMENT) Neurologic Surgery: Yes Oral Surgery: No Thoracic Surgery: Yes Other Surgery: Yes Social History Alcohol Use: No Tobacco Use: No Substance Use: No Allergies-Medications (Allergen,Severity, Reaction): Coded Allergies: fluconazole (Unverified Allergy, Severe, 12/14/17) hydromorphone (Unverified Allergy, Severe, 12/14/17) levetiracetam (Unverified Allergy, Severe, Anaphylaxis, 12/14/17) rifampin (Unverified Allergy, Severe, 12/14/17) phenytoin (Unverified Allergy, Mild, Rash, 12/14/17) Reported Meds & Prescriptions Reported Meds & Active Scripts Active Lactinex (Lactobacillus Acidophilus) 1 Chew 1 Tab CHEW BID Augmentin (Amoxicillin-Clavulanate) 875-125 Mg Tab 1 Tab PO BID Topamax (Topiramate) 25 Mg Tab 50 Mg PO Q8HR Metoprolol Tartrate 25 Mg Tab 25 Mg PO Q12HR Depakene (Valproic Acid) 250 Mg Cap 250 Mg PO HS Valproic Acid 250 Mg Cap 500 Mg PO TID 30 Days Lisinopril 20 Mg Tab 20 Mg PO DAILY 30 Days Reported Ezetimibe 10 Mg Tab 10 Mg PO DAILY Ditropan (Oxybutynin Chloride) 5 Mg Tab 5 Mg PO DAILY Ditropan (Oxybutynin Chloride) 5 Mg Tab 10 Mg PO DAILY Montelukast (Montelukast Sodium) 10 Mg Tab 10 Mg PO HS Aspir-81 (Aspirin) 81 Mg Tabdr 81 Mg PO DAILY Levothyroxine (Levothyroxine Sodium) 75 Mcg Tab 75 Mcg PO DAILY Alendronate (Alendronate Sodium) 70 Mg Tab 70 Mg PO Q7D [place] Opth Drops (Bimatoprost) 0.01% Soln 1 Drop EACH EYE HS Review of Systems Except as stated in HPI: all other systems reviewed are Neg Physical Exam Narrative GENERAL: Well-nourished, well-developed female in no acute distress. Mildly febrile. SKIN: Focused skin assessment warm/dry. HEAD: Normocephalic. EYES: No scleral icterus. No injection or drainage. NECK: Supple, trachea midline. No JVD or lymphadenopathy. CARDIOVASCULAR: Regular rate and rhythm without murmurs, gallops, or rubs. RESPIRATORY: Breath sounds equal bilaterally. No accessory muscle use. GASTROINTESTINAL: Abdomen soft, nondistended. Moderate tenderness to palpation of the mid abdomen and right lower quadrant. NEUROLOGICAL: Awake and alert. Cranial nerves II through XII intact. Motor and sensory grossly within normal limits. Five out of 5 muscle strength in all muscle groups. No pronator drift in upper extremities. Data Data Last Documented VS Vital Signs Date Time Temp Pulse Resp B/P (MAP) Pulse Ox O2 Delivery O2 Flow Rate FiO2 12/14/17 18:21 68 18 151/67 (95) 99 Room Air 12/14/17 16:30 100.0 2.00 Orders Orders Sepsis Workup Initiated (12/14/17 ) Complete Blood Count With Diff (12/14/17 14:30) Comprehensive Metabolic Panel (12/14/17 14:30) Urinalysis - C+S If Indicated (12/14/17 14:30) Lactic Acid Sepsis Protocol (12/14/17 14:30) Blood Culture (12/14/17 14:30) Iv Access Insert/Monitor (12/14/17 14:30) Oxygen Administration (12/14/17 14:30) Oximetry (12/14/17 14:30) Blood Glucose (12/14/17 14:30) Chest, Single Ap (12/14/17 ) Influenzae A/B Antigen (12/14/17 15:17) Acetaminophen Supp (Tylenol Supp) (12/14/17 15:30) Ct Abd/Pel W Iv Contrast(Rout) (12/14/17 ) Urine Culture (12/14/17 17:00) Iohexol 350 Inj (Omnipaque 350 Inj) (12/14/17 17:46) Piperacil-Tazo 4.5 Gm Premix (Zosyn 4.5 (12/14/17 18:00) Consult Urology (12/14/17 ) (Hub Use Only)Inp Phy Cons/Ref (12/14/17 ) Diet Npo (12/14/17 Dinner) Vital Signs (Adult) SUKHWINDER.Q4H (12/14/17 18:26) Piperacil-Tazo 3.375 Gm Premix (Zosyn 3. (12/15/17 00:00) Sodium Chlor 0.9% 1000 Ml Inj (Ns 1000 M (12/14/17 18:30) Admit Order (Ed Use Only) (12/14/17 18:27) Labs Laboratory Tests Test 12/14/17 15:30 12/14/17 17:00 White Blood Count 8.2 TH/MM3 Red Blood Count 4.14 MIL/MM3 Hemoglobin 14.1 GM/DL Hematocrit 41.8 % Mean Corpuscular Volume 100.9 FL Mean Corpuscular Hemoglobin 34.1 PG Mean Corpuscular Hemoglobin Concent 33.8 % Red Cell Distribution Width 14.2 % Platelet Count 115 TH/MM3 Mean Platelet Volume 8.4 FL Neutrophils (%) (Auto) 81.8 % Lymphocytes (%) (Auto) 6.6 % Monocytes (%) (Auto) 11.0 % Eosinophils (%) (Auto) 0.4 % Basophils (%) (Auto) 0.2 % Neutrophils # (Auto) 6.7 TH/MM3 Lymphocytes # (Auto) 0.5 TH/MM3 Monocytes # (Auto) 0.9 TH/MM3 Eosinophils # (Auto) 0.0 TH/MM3 Basophils # (Auto) 0.0 TH/MM3 CBC Comment DIFF FINAL Differential Comment Blood Urea Nitrogen 18 MG/DL Creatinine 0.68 MG/DL Random Glucose 100 MG/DL Total Protein 7.3 GM/DL Albumin 3.5 GM/DL Calcium Level 8.8 MG/DL Alkaline Phosphatase 41 U/L Aspartate Amino Transf (AST/SGOT) 11 U/L Alanine Aminotransferase (ALT/SGPT) 7 U/L Total Bilirubin 0.4 MG/DL Sodium Level 144 MEQ/L Potassium Level 3.5 MEQ/L Chloride Level 112 MEQ/L Carbon Dioxide Level 24.4 MEQ/L Anion Gap 8 MEQ/L Estimat Glomerular Filtration Rate 86 ML/MIN Lactic Acid Level 1.2 mmol/L Urine Color YELLOW Urine Turbidity HAZY Urine pH 7.0 Urine Specific [place] 1.012 Urine Protein 100 mg/dL Urine Glucose (UA) NEG mg/dL Urine Ketones NEG mg/dL Urine Occult Blood MOD Urine Nitrite POS Urine Bilirubin NEG Urine Urobilinogen LESS THAN 2.0 MG/DL Urine Leukocyte Esterase MOD Urine RBC 40 /hpf Urine WBC 57 /hpf Urine Squamous Epithelial Cells 2 /hpf Urine Bacteria RARE /hpf Urine Mucus FEW /lpf Microscopic Urinalysis Comment CULTURE INDICATED MDM Medical Decision Making Medical Screen Exam Complete: Yes Emergency Medical Condition: Yes Medical Record Reviewed: Yes Differential Diagnosis AMS, UTI, medication side effect Narrative Course 67-year-old female presents to the emergency room for evaluation of fever and altered mental status. Patient's presents with her and states that she has been fatigued since being discharged from the hospital. Patient's believes it is a side effect of the Topamax that she was just started on during her last hospital visit. On initial presentation, patient refuses to speak to me because she feels too weak. She was given Tylenol, fluids. Her mentation cleared and she is joking around. CBC and CMP are unremarkable. Lactic acid is 1.2. Blood cultures ordered and pending. UA shows evidence of infection. Patient was tender on her abdomen so a CT abdomen and pelvis was ordered. She is a 7 mm stone on the left with hydronephrosis and hydroureter. Patient was started on Zosyn. I spoke to Dr. West who will take the patient to the OR for stent. Patient will be admitted to hospitalist. Diagnosis Primary Impression: Kidney stone Additional Impression: Pyelonephritis Admitting Information Admitting Physician Requests: Admit Condition: Stable Venessa Long Dec 14, 2017 17:23
[2017-12-14 17:44] LABS: BACTERIA, URINE RARE /hpf; BILIRUBIN, URINE NEG (NEG); BLOOD, URINE MOD (NEG); GLUCOSE,URINE NEG (NEG); KETONE, URINE NEG (NEG); MUCUS URINE FEW /lpf (OCC); NITRITE,URINE POS (NEG); SQUAMOUS EPITHELIAL CELL URINE 2 /hpf (0-5); URINE COLOR YELLOW (YELLW/STRAW); URINE LEUKOCYTE ESTERASE MOD (NEG)
[2017-12-14] MEDS ORDERED: IOHEXOL 350 MG/ML 10 ML VIAL (for RAD DIAG) IVCONTRAST ONE (17:46)
--- NOTE | 2017-12-14 17:52 | RADRPT ---
EXAM DATE/TIME: 12/14/2017 17:31 [facility] COMPARISON: CT ABDOMEN & PELVIS W CONTRAST, July 15, 2015, 17:24. INDICATIONS : Patient complains of abdominal pain. IV CONTRAST: 85 cc Omnipaque 350 (iohexol) IV ORAL CONTRAST: No oral contrast ingested. RADIATION DOSE: 16.16 CTDIvol (mGy) MEDICAL HISTORY : Cardiovascular disease. Hypertension. Ulcers.seizures SURGICAL HISTORY : Hysterectomy. back surgery, rotator cuff surgery ENCOUNTER: Initial ACUITY: 1 day PAIN SCALE: 3/10 LOCATION: abdomen TECHNIQUE: Volumetric scanning of the abdomen and pelvis was performed. Using automated exposure control and ad justment of the mA and/or kV according to patient size, radiation dose was kept as low as reasonably achievable to obtain optimal diagnostic quality images. DICOM format image data is available electro nically for review and comparison. FINDINGS: LOWER LUNGS: The visualized lower lungs are clear. LIVER: Homogeneous density without lesion. There is no dilation of the biliary tree. No calcified gallston es. SPLEEN: Normal size without lesion. There is a small amount of ascitic fluid one posterior spleen. PANCREAS: Within normal limits. KIDNEYS: The right kidney remains normal in size and shape with several tiny 1 mm nonobstructing renal calculi in the lower pole. The left kidney is more prominent with a delayed nephrogram and surrounding infla mmatory change. There is moderate hydronephrosis with dilatation of the left ureter down to a distal left ureteral calculus at the level of mid pelvis approximately 3 cm above the ureterovesicular junct ion. This measures up to 7 mm in greatest diameter. ADRENAL GLANDS: Within normal limits. VASCULAR: There is no aortic aneurysm. An inferior vena caval filter is again noted. BOWEL/MESENTERY: The stomach, small bowel, and colon demonstrate no acute abnormality. There is no free intraperitone al air or fluid. ABDOMINAL WALL: Within normal limits. RETROPERITONEUM: There is no lymphadenopathy. BLADDER: No wall thickening or mass. REPRODUCTIVE: Within normal limits. INGUINAL: There is no lymphadenopathy or hernia. MUSCULOSKELETAL: Stable in appearance with osteopenia, degenerative change and mild scoliosis. There are stable postop erative changes in the lumbar and lower thoracic spine.. CONCLUSION: 1. 7 mm distal left ureteral calculus with moderate hydroureter and hydronephrosis. 2. 2 tiny right renal calculi. 3. Small amount of ascitic fluid along the posterior spleen. Mustapha Grossman MD on December 14, 2017 at 17:44 Board Certified Radiologist. This report was verified electronically.
[2017-12-14] MEDS ORDERED: PIPERACIL-TAZO 4.5 GM PREMIX 100 ML IV ONE (18:00)
--- NOTE | 2017-12-14 18:20 | PD ---
Physical Exam Narrative GENERAL: Well-nourished, well-developed patient. SKIN: Warm and dry. HEAD: Normocephalic and atraumatic. EYES: No injection or drainage. ENT: No nasal drainage noted. NECK: Supple, trachea midline. CARDIOVASCULAR: Regular rate and rhythm RESPIRATORY: no increased effort. No accessory muscle use. NEUROLOGICAL: Awake and alert. moves extremities and sensory grossly within normal limits. Normal speech. Data Data Last Documented VS Vital Signs Date Time Temp Pulse Resp B/P (MAP) Pulse Ox O2 Delivery O2 Flow Rate FiO2 12/14/17 16:30 100.0 71 17 161/72 (101) 97 Nasal Cannula 2.00 Orders Orders Sepsis Workup Initiated (12/14/17 ) Complete Blood Count With Diff (12/14/17 14:30) Comprehensive Metabolic Panel (12/14/17 14:30) Urinalysis - C+S If Indicated (12/14/17 14:30) Lactic Acid Sepsis Protocol (12/14/17 14:30) Blood Culture (12/14/17 14:30) Iv Access Insert/Monitor (12/14/17 14:30) Oxygen Administration (12/14/17 14:30) Oximetry (12/14/17 14:30) Blood Glucose (12/14/17 14:30) Chest, Single Ap (12/14/17 ) Influenzae A/B Antigen (12/14/17 15:17) Acetaminophen Supp (Tylenol Supp) (12/14/17 15:30) Ct Abd/Pel W Iv Contrast(Rout) (12/14/17 ) Urine Culture (12/14/17 17:00) Iohexol 350 Inj (Omnipaque 350 Inj) (12/14/17 17:46) Piperacil-Tazo 4.5 Gm Premix (Zosyn 4.5 (12/14/17 18:00) Consult Urology (12/14/17 ) Labs Laboratory Tests Test 12/14/17 15:30 12/14/17 17:00 White Blood Count 8.2 TH/MM3 Red Blood Count 4.14 MIL/MM3 Hemoglobin 14.1 GM/DL Hematocrit 41.8 % Mean Corpuscular Volume 100.9 FL Mean Corpuscular Hemoglobin 34.1 PG Mean Corpuscular Hemoglobin Concent 33.8 % Red Cell Distribution Width 14.2 % Platelet Count 115 TH/MM3 Mean Platelet Volume 8.4 FL Neutrophils (%) (Auto) 81.8 % Lymphocytes (%) (Auto) 6.6 % Monocytes (%) (Auto) 11.0 % Eosinophils (%) (Auto) 0.4 % Basophils (%) (Auto) 0.2 % Neutrophils # (Auto) 6.7 TH/MM3 Lymphocytes # (Auto) 0.5 TH/MM3 Monocytes # (Auto) 0.9 TH/MM3 Eosinophils # (Auto) 0.0 TH/MM3 Basophils # (Auto) 0.0 TH/MM3 CBC Comment DIFF FINAL Differential Comment Blood Urea Nitrogen 18 MG/DL Creatinine 0.68 MG/DL Random Glucose 100 MG/DL Total Protein 7.3 GM/DL Albumin 3.5 GM/DL Calcium Level 8.8 MG/DL Alkaline Phosphatase 41 U/L Aspartate Amino Transf (AST/SGOT) 11 U/L Alanine Aminotransferase (ALT/SGPT) 7 U/L Total Bilirubin 0.4 MG/DL Sodium Level 144 MEQ/L Potassium Level 3.5 MEQ/L Chloride Level 112 MEQ/L Carbon Dioxide Level 24.4 MEQ/L Anion Gap 8 MEQ/L Estimat Glomerular Filtration Rate 86 ML/MIN Lactic Acid Level 1.2 mmol/L Urine Color YELLOW Urine Turbidity HAZY Urine pH 7.0 Urine Specific [place] 1.012 Urine Protein 100 mg/dL Urine Glucose (UA) NEG mg/dL Urine Ketones NEG mg/dL Urine Occult Blood MOD Urine Nitrite POS Urine Bilirubin NEG Urine Urobilinogen LESS THAN 2.0 MG/DL Urine Leukocyte Esterase MOD Urine RBC 40 /hpf Urine WBC 57 /hpf Urine Squamous Epithelial Cells 2 /hpf Urine Bacteria RARE /hpf Urine Mucus FEW /lpf Microscopic Urinalysis Comment CULTURE INDICATED MDM Supervised Visit with ROBI: Yes Interpretation(s) CBC & BMP Diagram 12/14/17 15:30 Total Protein 7.3, Albumin 3.5, Calcium Level 8.8, Alkaline Phosphatase 41 L, Aspartate Amino Transf (AST/SGOT) 11 L, Alanine Aminotransferase (ALT/SGPT) 7 L , Total Bilirubin 0.4 Last 24 hours Impressions Chest X-Ray 12/14/17 0000 Signed Impressions: Service Date/Time: December 14:39 - CONCLUSION: 1. Interval extubation and removal of nasogastric tube. 2. The lungs are now clear. Mustapha Grossman MD Abdomen/Pelvis CT 2/1/18 0000 Signed Impressions: Service Date/Time: December 17:31 - CONCLUSION: 1. 7 mm distal left ureteral calculus with moderate hydroureter and hydronephrosis. 2. 2 tiny right renal calculi. 3. Small amount of ascitic fluid along the posterior spleen. Mustapha Grossman MD Narrative Course I, Dr. carranza, have reviewed the advance practice practitioner's documentation and am in agreement, met with the patient face to face, made the diagnosis, and the medical decision making was done by me. *My assessment and Findings: 67-year-old female presents with fever. Workup reveals UTI with kidney stone. She was given antibiotics and stat call to urology for intervention. She'll be admitted to the hospital for further care Diagnosis Primary Impression: Kidney stone Additional Impressions: Fever Qualified Codes: R50.9 - Fever, unspecified UTI (urinary tract infection) Qualified Codes: N39.0 - Urinary tract infection, site not specified Admitting Information Admitting Physician Requests: Admit Condition: Stable Sameera Carranza MD Dec 14, 2017 18:20
[2017-12-14] MEDS ORDERED: SODIUM CHLOR 0.9% 1000 ML INJ 1,000 ML IV SCH (18:30)
--- NOTE | 2017-12-14 18:30 | PD.CONS ---
HPI Service Urology Consult Requested By Reason for Consult Septic obstructing stone Primary Care Physician Unknown Diagnosis: History of Present Illness 67yo female with obstructing left distal ureteral stone admitted with signs of sepsis with a fever of 102.4 and elevated HR and left flank pain. Patient was found to have a left distal obstructing ureteral stone approx 7mm with left hydronephrosis. Patient reports she has had mild left flank pain and discomfort for over 1 day now and subjective fevers. She has never had this pain prior. No N/V. Neurologically intact. She has evidence of UTI. Given her clinical picture it was decided to place a left ureteral stent. This was discussed with the patient who understands and agrees. Review of Systems ROS Limitations: Clinical Condition, Poor Historian Constitutional: COMPLAINS OF: Fever Endocrine: DENIES: Polydipsia Eyes: DENIES: Blurred vision Ears, nose, mouth, throat: DENIES: Hearing loss Respiratory: DENIES: Cough Cardiovascular: DENIES: Chest pain Gastrointestinal: COMPLAINS OF: Abdominal pain, Nausea, DENIES: Vomiting Genitourinary: COMPLAINS OF: Urinary frequency, Urinary incontinence, Urgency Musculoskeletal: COMPLAINS OF: Back pain Integumentary: DENIES: Rash Hematologic/lymphatic: DENIES: Bruising Neurologic: DENIES: Headache Psychiatric: DENIES: Anxiety Except as stated in HPI: all other systems reviewed are Neg Past Family Social History Past Medical History Hypothyrodism GERD Hyperlipidemia Seizure disorder Hypertension Urinary incontinence Past Surgical History 12 surgeries on the right knee 4 surgeries on the left knee 4 back surgeries 2 shoulder surgeries Hysterectomy Reported Medications Reported Meds & Active Scripts Active Lactinex (Lactobacillus Acidophilus) 1 Chew 1 Tab CHEW BID Augmentin (Amoxicillin-Clavulanate) 875-125 Mg Tab 1 Tab PO BID Topamax (Topiramate) 25 Mg Tab 50 Mg PO Q8HR Metoprolol Tartrate 25 Mg Tab 25 Mg PO Q12HR Depakene (Valproic Acid) 250 Mg Cap 250 Mg PO HS Valproic Acid 250 Mg Cap 500 Mg PO TID 30 Days Lisinopril 20 Mg Tab 20 Mg PO DAILY 30 Days Reported Ezetimibe 10 Mg Tab 10 Mg PO DAILY Ditropan (Oxybutynin Chloride) 5 Mg Tab 5 Mg PO DAILY Ditropan (Oxybutynin Chloride) 5 Mg Tab 10 Mg PO DAILY Montelukast (Montelukast Sodium) 10 Mg Tab 10 Mg PO HS Aspir-81 (Aspirin) 81 Mg Tabdr 81 Mg PO DAILY Levothyroxine (Levothyroxine Sodium) 75 Mcg Tab 75 Mcg PO DAILY Alendronate (Alendronate Sodium) 70 Mg Tab 70 Mg PO Q7D Lumigan Opth Drops (Bimatoprost) 0.01% Soln 1 Drop EACH EYE HS Allergies: Coded Allergies: fluconazole (Unverified Allergy, Severe, 12/14/17) hydromorphone (Unverified Allergy, Severe, 12/14/17) levetiracetam (Unverified Allergy, Severe, Anaphylaxis, 12/14/17) rifampin (Unverified Allergy, Severe, 12/14/17) phenytoin (Unverified Allergy, Mild, Rash, 12/14/17) Active Ordered Medications Current Medications Medications (Trade) Dose Ordered Sig/Tiera Route Start Time Stop Time Status Last Admin Piperacillin Sod/ Tazobactam Sod 50 ml @ 100 mls/hr Q6H IV 12/15/17 00:00 Sodium Chloride 1,000 ml @ 84 mls/hr [id number] IV 12/14/17 20:00 (NS Flush) 2 ml UNSCH PRN IV FLUSH 12/14/17 19:45 (NS Flush) 2 ml BID IV FLUSH 12/14/17 21:00 (Tylenol) 650 mg Q4H PRN PO 12/14/17 19:45 (Zofran Inj) 4 mg Q6H PRN IVP 12/14/17 19:45 (Narcan Inj) 0.4 mg UNSCH PRN IV PUSH 12/14/17 19:45 (Milk Of Magnesia Liq) 30 ml Q12H PRN PO 12/14/17 19:45 (Senokot) 17.2 mg Q12H PRN PO 12/14/17 19:45 (Dulcolax Supp) 10 mg DAILY PRN RECTAL 12/14/17 19:45 (Lactulose Liq) 30 ml DAILY PRN PO 12/14/17 19:45 (Zetia) 10 mg DAILY PO 12/15/17 09:00 (Synthroid) 75 mcg DAILY@0600 PO 12/15/17 06:00 (Prinivil) 20 mg DAILY PO 12/15/17 09:00 (Lopressor) 25 mg Q12HR PO 12/14/17 21:00 (Ditropan) 10 mg DAILY PO 12/15/17 09:00 (Topamax) 50 mg Q8HR PO 12/14/17 22:00 (Depakene) 500 mg TID PO 12/15/17 09:00 (Xalatan 0.005% Opth Soln) 1 drop HS EACH EYE 12/14/17 21:00 Family History Both parents with coronary artery disease Social History No smoking or ETOH Physical Exam Vital Signs Date Time Temp Pulse Resp B/P (MAP) Pulse Ox O2 Delivery O2 Flow Rate FiO2 12/14/17 18:21 68 18 151/67 (95) 99 Room Air 12/14/17 16:30 100.0 71 17 161/72 (101) 97 Nasal Cannula 2.00 12/14/17 15:16 102.4 69 16 172/79 (110) 96 Nasal Cannula 2.00 12/14/17 15:16 96 Nasal Cannula 2.00 12/14/17 14:37 100.1 74 20 226/93 (137) 94 Physical Exam GENERAL: This is a well-nourished, well-developed patient, in no apparent distress. SKIN: No rashes, ecchymoses or lesions HEAD: Atraumatic. Normocephalic. EYES: Extraocular motions intact. No scleral icterus. No injection or drainage. ENT: Nose without bleeding, purulent drainage. Airway patent. NECK: Trachea midline. No JVD or lymphadenopathy. CARDIOVASCULAR: Normal pulse RESPIRATORY: Nonlabored GASTROINTESTINAL: Abdomen soft, non-tender, nondistended MUSCULOSKELETAL: Extremities without clubbing, cyanosis, or edema. NEUROLOGICAL: Awake and alert, however somewhat lethargic. Motor and sensory grossly within normal limits. Normal speech. Lab results reviewed: Yes Laboratory Tests Test 12/14/17 15:30 12/14/17 17:00 White Blood Count 8.2 Red Blood Count 4.14 Hemoglobin 14.1 Hematocrit 41.8 Mean Corpuscular Volume 100.9 Mean Corpuscular Hemoglobin 34.1 Mean Corpuscular Hemoglobin Concent 33.8 Red Cell Distribution Width 14.2 Platelet Count 115 Mean Platelet Volume 8.4 Neutrophils (%) (Auto) 81.8 Lymphocytes (%) (Auto) 6.6 Monocytes (%) (Auto) 11.0 Eosinophils (%) (Auto) 0.4 Basophils (%) (Auto) 0.2 Neutrophils # (Auto) 6.7 Lymphocytes # (Auto) 0.5 Monocytes # (Auto) 0.9 Eosinophils # (Auto) 0.0 Basophils # (Auto) 0.0 CBC Comment DIFF FINAL Differential Comment Blood Urea Nitrogen 18 Creatinine 0.68 Random Glucose 100 Total Protein 7.3 Albumin 3.5 Calcium Level 8.8 Alkaline Phosphatase 41 Aspartate Amino Transf (AST/SGOT) 11 Alanine Aminotransferase (ALT/SGPT) 7 Total Bilirubin 0.4 Sodium Level 144 Potassium Level 3.5 Chloride Level 112 Carbon Dioxide Level 24.4 Anion Gap 8 Estimat Glomerular Filtration Rate 86 Lactic Acid Level 1.2 Urine Color YELLOW Urine Turbidity HAZY Urine pH 7.0 Urine Specific [place] 1.012 Urine Protein 100 Urine Glucose (UA) NEG Urine Ketones NEG Urine Occult Blood MOD Urine Nitrite POS Urine Bilirubin NEG Urine Urobilinogen LESS THAN 2.0 Urine Leukocyte Esterase MOD Urine RBC 40 Urine WBC 57 Urine Squamous Epithelial Cells 2 Urine Bacteria RARE Urine Mucus FEW Microscopic Urinalysis Comment CULTURE INDICATED Date/Time Source Procedure Growth Status 12/14/17 15:30 Blood Peripheral Aerobic Blood Culture Pending Received 12/14/17 15:30 Blood Peripheral Anaerobic Blood Culture Pending Received 12/14/17 15:30 Nasal Aspirate Influenza Types A,B Antigen (MARTHA) - Final NEGATIVE FOR FLU A AND B ANTIGEN.... Complete 12/14/17 17:00 Urine Clean Catch Urine Culture Pending Received Result Diagram: 12/14/17 1530 12/14/17 1530 Personally reviewed images: Yes Imaging Last Impressions Chest X-Ray 12/14/17 0000 Signed Impressions: Service Date/Time: December 14:39 - CONCLUSION: 1. Interval extubation and removal of nasogastric tube. 2. The lungs are now clear. Mustapha Grossman MD Abdomen/Pelvis CT 12/14/17 0000 Signed Impressions: Service Date/Time: December 17:31 - CONCLUSION: 1. 7 mm distal left ureteral calculus with moderate hydroureter and hydronephrosis. 2. 2 tiny right renal calculi. 3. Small amount of ascitic fluid along the posterior spleen. Mustapha Grossman MD Assessment and Plan Problem List: (1) Fever ICD Code: R50.9 - Fever, unspecified Status: Acute (2) UTI (urinary tract infection) ICD Code: N39.0 - Urinary tract infection, site not specified Status: Acute (3) Kidney stone ICD Code: N20.0 - Calculus of kidney Status: Acute (4) Pyelonephritis ICD Code: N12 - Tubulo-interstitial nephritis, not specified as acute or chronic Status: Acute Assessment and Plan 67yo female with septic obstructive left ureteral stone Patient with evidence of sepsis. As this is high risk case, it was decided to proceed to the OR emergently for Cysto Left stent placement Discussed risks and benefits of the stent and the importance of follow-up to remove stone and stent Continue IV abx Will follow Problem Qualifiers (1) Fever: Qualified Codes: R50.9 - Fever, unspecified (2) UTI (urinary tract infection): Qualified Codes: N39.0 - Urinary tract infection, site not specified Kwasi West MD Dec 14, 2017 18:30
[2017-12-14] MEDS ORDERED: ONDANSETRON HCL 4 MG/2 ML VIAL IVP PRN (19:45)
[2017-12-14] MEDS ORDERED: ACETAMINOPHEN 325 MG TAB PO PRN (19:45)
[2017-12-14] MEDS ORDERED: LACTULOSE SYRUP 20 GM/30 ML CUP PO PRN (19:45)
[2017-12-14] MEDS ORDERED: MAGNESIUM HYDROXIDE SUSP 30 ML CUP PO PRN (19:45)
[2017-12-14] MEDS ORDERED: SENNOSIDES 8.6 MG TAB PO PRN (19:45)
[2017-12-14] MEDS ORDERED: NALOXONE HCL 0.4 MG/ML AMP IV PUSH PRN (19:45)
[2017-12-14] MEDS ORDERED: SODIUM CHLORIDE 0.9% FLUSH 10 ML FLUSH IV FLUSH PRN (19:45)
[2017-12-14] MEDS ORDERED: BISACODYL 10 MG SUPP RECTAL PRN (19:45)
--- NOTE | 2017-12-14 20:12 | HHI.HP ---
[facility] Unknown Admission Diagnosis infected kidney stone Diagnoses: Travel History International Travel<30 Days: No Contact w/Intl Traveler <30 Da: No Traveled to Known Affected Are: No History of Present Illness 67-year-old female with a past medical history significant for seizure disorder , hypertension, hyperlipidemia and urinary incontinence presents to the emergency department for evaluation of altered mental status. The patient's reports that she has been fatigued and tired since her discharge from the hospital on 11/14/17 and he believes this is related to the Topamax that she was started on during the hospitalization. Today, the patient was more tired and fatigued than usual and was unable to get out of bed on her own secondary to weakness. Her reports he carried her to the restroom and upon returning her to bed she started talking nonsense. He also states that she had severe chills. Patient currently complains of left flank pain. Denies any fever/chills. Denies shortness of breath, chest pain, nausea/vomiting/diarrhea. Review of Systems Except as stated in HPI: all other systems reviewed are Neg Past Family Social History Past Medical History Seizure disorder Hypertension Hyperlipidemia Urinary incontinence Past Surgical History 12 surgeries on the right knee 4 surgeries on the left knee 4 back surgeries 2 shoulder surgeries Hysterectomy Reported Medications Reported Meds & Active Scripts Active Lactinex (Lactobacillus Acidophilus) 1 Chew 1 Tab CHEW BID Augmentin (Amoxicillin-Clavulanate) 875-125 Mg Tab 1 Tab PO BID Topamax (Topiramate) 25 Mg Tab 50 Mg PO Q8HR Metoprolol Tartrate 25 Mg Tab 25 Mg PO Q12HR Depakene (Valproic Acid) 250 Mg Cap 250 Mg PO HS Valproic Acid 250 Mg Cap 500 Mg PO TID 30 Days Lisinopril 20 Mg Tab 20 Mg PO DAILY 30 Days Reported Ezetimibe 10 Mg Tab 10 Mg PO DAILY Ditropan (Oxybutynin Chloride) 5 Mg Tab 5 Mg PO DAILY Ditropan (Oxybutynin Chloride) 5 Mg Tab 10 Mg PO DAILY Montelukast (Montelukast Sodium) 10 Mg Tab 10 Mg PO HS Aspir-81 (Aspirin) 81 Mg Tabdr 81 Mg PO DAILY Levothyroxine (Levothyroxine Sodium) 75 Mcg Tab 75 Mcg PO DAILY Alendronate (Alendronate Sodium) 70 Mg Tab 70 Mg PO Q7D Lumigan Opth Drops (Bimatoprost) 0.01% Soln 1 Drop EACH EYE HS Allergies: Coded Allergies: fluconazole (Unverified Allergy, Severe, 12/14/17) hydromorphone (Unverified Allergy, Severe, 12/14/17) levetiracetam (Unverified Allergy, Severe, Anaphylaxis, 12/14/17) rifampin (Unverified Allergy, Severe, 12/14/17) phenytoin (Unverified Allergy, Mild, Rash, 12/14/17) Family History Both parents with coronary artery disease Social History Negative for CAD/DM Physical Exam Vital Signs Vital Signs Date Time Temp Pulse Resp B/P (MAP) Pulse Ox O2 Delivery O2 Flow Rate FiO2 12/14/17 18:21 68 18 151/67 (95) 99 Room Air 12/14/17 16:30 100.0 71 17 161/72 (101) 97 Nasal Cannula 2.00 12/14/17 15:16 102.4 69 16 172/79 (110) 96 Nasal Cannula 2.00 12/14/17 15:16 96 Nasal Cannula 2.00 12/14/17 14:37 100.1 74 20 226/93 (137) 94 Physical Exam GENERAL: female lying in bed SKIN: No rashes, ecchymoses or lesions. Cool and dry. HEAD: Atraumatic. Normocephalic. No temporal or scalp tenderness. EYES: Pupils equal round and reactive. Extraocular motions intact. No scleral icterus. No injection or drainage. ENT: Nose without bleeding, purulent drainage or septal hematoma. Throat without erythema, tonsillar hypertrophy or exudate. Uvula midline. Airway patent. NECK: Trachea midline. No JVD or lymphadenopathy. Supple, nontender, no meningeal signs. CARDIOVASCULAR: Regular rate and rhythm with 2/6 LAUREN RESPIRATORY: Clear to auscultation. Breath sounds equal bilaterally. No wheezes , rales, or rhonchi. GASTROINTESTINAL: Abdomen soft, non-tender, nondistended. No hepato-splenomegaly , or palpable masses. No guarding. : Severe left-sided CVA tenderness MUSCULOSKELETAL: Extremities without clubbing, cyanosis, or edema. No joint tenderness, effusion, or edema noted. No calf tenderness. NEUROLOGICAL: Awake and alert. Cranial nerves II through XII intact. Motor and sensory grossly within normal limits. Normal speech. Laboratory Laboratory Tests Test 12/14/17 15:30 12/14/17 17:00 White Blood Count 8.2 Red Blood Count 4.14 Hemoglobin 14.1 Hematocrit 41.8 Mean Corpuscular Volume 100.9 Mean Corpuscular Hemoglobin 34.1 Mean Corpuscular Hemoglobin Concent 33.8 Red Cell Distribution Width 14.2 Platelet Count 115 Mean Platelet Volume 8.4 Neutrophils (%) (Auto) 81.8 Lymphocytes (%) (Auto) 6.6 Monocytes (%) (Auto) 11.0 Eosinophils (%) (Auto) 0.4 Basophils (%) (Auto) 0.2 Neutrophils # (Auto) 6.7 Lymphocytes # (Auto) 0.5 Monocytes # (Auto) 0.9 Eosinophils # (Auto) 0.0 Basophils # (Auto) 0.0 CBC Comment DIFF FINAL Differential Comment Blood Urea Nitrogen 18 Creatinine 0.68 Random Glucose 100 Total Protein 7.3 Albumin 3.5 Calcium Level 8.8 Alkaline Phosphatase 41 Aspartate Amino Transf (AST/SGOT) 11 Alanine Aminotransferase (ALT/SGPT) 7 Total Bilirubin 0.4 Sodium Level 144 Potassium Level 3.5 Chloride Level 112 Carbon Dioxide Level 24.4 Anion Gap 8 Estimat Glomerular Filtration Rate 86 Lactic Acid Level 1.2 Urine Color YELLOW Urine Turbidity HAZY Urine pH 7.0 Urine Specific [place] 1.012 Urine Protein 100 Urine Glucose (UA) NEG Urine Ketones NEG Urine Occult Blood MOD Urine Nitrite POS Urine Bilirubin NEG Urine Urobilinogen LESS THAN 2.0 Urine Leukocyte Esterase MOD Urine RBC 40 Urine WBC 57 Urine Squamous Epithelial Cells 2 Urine Bacteria RARE Urine Mucus FEW Microscopic Urinalysis Comment CULTURE INDICATED Date/Time Source Procedure Growth Status 12/14/17 15:30 Blood Peripheral Aerobic Blood Culture Pending Received 12/14/17 15:30 Blood Peripheral Anaerobic Blood Culture Pending Received 12/14/17 15:30 Nasal Aspirate Influenza Types A,B Antigen (MARTHA) - Final NEGATIVE FOR FLU A AND B ANTIGEN.... Complete 12/14/17 17:00 Urine Clean Catch Urine Culture Pending Received Result Diagram: 12/14/17 1530 12/14/17 1530 Caprini VTE Risk Assessment Caprini VTE Risk Assessment: Mod/High Risk (score >= 2) Caprini Risk Assessment Model Point Value = 1 Point Value = 2 Point Value = 3 Point Value = 5 Age 41-60 Minor surgery BMI > 25 kg/m2 Swollen legs Varicose veins or History of unexplained or recurrent spontaneous Oral contraceptives or hormone replacement Sepsis (< 1 month) Serious lung disease, including pneumonia (< 1 month) Abnormal pulmonary function Acute myocardial infarction Congestive heart failure (< 1 month) History of inflammatory bowel disease Medical patient at bed rest Age 61-74 Arthroscopic surgery Major open surgery (> 45 min) Laparoscopic surgery (> 45 min) Malignancy Confined to bed (> 72 hours) Immobilizing plaster cast Central venous access Age >= 75 History of VTE Family history of VTE Factor V Leiden Prothrombin [id number] Lupus anticoagulant Anticardiolipin antibodies Elevated serum homocysteine Heparin-induced thrombocytopenia Other congenital or acquired thrombophilia Stroke (< 1 month) Elective arthroplasty Hip, pelvis, or leg fracture Acute spinal cord injury (< 1 month) Prophylaxis Regimen Total Risk Factor Score Risk Level Prophylaxis Regimen 0-1 Low Early ambulation 2 Moderate Order ONE of the following: *Sequential Compression Device (SCD) *Heparin 5000 units SQ BID 3-4 Higher Order ONE of the following medications: *Heparin 5000 units SQ TID *Enoxaparin/Lovenox 40 mg SQ daily (WT < 150 kg, CrCl > 30 mL/min) *Enoxaparin/Lovenox 30 mg SQ daily (WT < 150 kg, CrCl > 10-29 mL/min) *Enoxaparin/Lovenox 30 mg SQ BID (WT < 150 kg, CrCl > 30 mL/min) AND/OR *Sequential Compression Device (SCD) 5 or more Highest Order ONE of the following medications: *Heparin 5000 units SQ TID (Preferred with Epidurals) *Enoxaparin/Lovenox 40 mg SQ daily (WT < 150 kg, CrCl > 30 mL/min) *Enoxaparin/Lovenox 30 mg SQ daily (WT < 150 kg, CrCl > 10-29 mL/min) *Enoxaparin/Lovenox 30 mg SQ BID (WT < 150 kg, CrCl > 30 mL/min) AND *Sequential Compression Device (SCD) Assessment and Plan Assessment and Plan Assessment/plan: 1. Nephrolithiasis with hydroureter and hydronephrosis CT of the abdomen/pelvis significant for 7 mm distal left ureter calculus with moderate hydroureter and hydronephrosis Urology consulted, plan for cystoscopy with left stent placement 2. Urinary tract infection UA significant for rare bacteria, moderate leukocyte esterase, positive nitrates Urine culture pending Zosyn Monitor for signs of sepsis 3. Altered mental status Likely secondary to urinary tract infection Resolved 4. Seizure disorder Continue home medications Follow-up with Dr. Headley as an outpatient regarding fatigue with Topamax 5. Hypertension/hyperlipidemia/hypothyroidism Continue home medications FEN NPO NS at 100 cc/hr Electrolytes: monitor and replete prn Holding pharmacologic anticoagulation in anticipation of OR tomorrow Physician Certification 2 Midnight Certification Type: Admission for Inpatient Services Order for Inpatient Services The services are ordered in accordance with Medicare regulations or non- Medicare payer requirements, as applicable. In the case of services not specified as inpatient-only, they are appropriately provided as inpatient services in accordance with the 2-midnight benchmark. Estimated LOS (days): 2 2 days is the estimated time the patient will need to remain in the hospital, assuming treatment plan goals are met and no additional complications. Post-Hospital Plan: Not yet determined Tereza Murdock MD Dec 14, 2017 20:12
[2017-12-14] MEDS: METOPROLOL TARTRATE 25 MG TAB PO SCH (21:00)
[2017-12-14] MEDS: SODIUM CHLORIDE 0.9% FLUSH 10 ML FLUSH IV FLUSH SCH (21:00)
[2017-12-14] MEDS: LATANOPROST 0.005% OPHT SOLN 2.5 ML BTL EACH EYE SCH (21:00)
[2017-12-14] MEDS: SODIUM CHLOR 0.9% 1000 ML INJ 1,000 ML IV SCH (21:15)
--- NOTE | 2017-12-14 21:19 | HHI.PR ---
Subjective Patient symptoms today Successful left 4x24 JJ ureteral stent. Almost complete obliteration of the left distal ureter, difficult to pass wire Objective Vital Signs Vital Signs Date Time Temp Pulse Resp B/P (MAP) Pulse Ox O2 Delivery O2 Flow Rate FiO2 12/14/17 18:21 68 18 151/67 (95) 99 Room Air 12/14/17 16:30 100.0 71 17 161/72 (101) 97 Nasal Cannula 2.00 12/14/17 15:16 102.4 69 16 172/79 (110) 96 Nasal Cannula 2.00 12/14/17 15:16 96 Nasal Cannula 2.00 12/14/17 14:37 100.1 74 20 226/93 (137) 94 Result Diagram: 12/14/17 1530 12/14/17 1530 Imaging Last 24 hours Impressions Chest X-Ray 12/14/17 0000 Signed Impressions: Service Date/Time: December 14:39 - CONCLUSION: 1. Interval extubation and removal of nasogastric tube. 2. The lungs are now clear. Mustapha Grossman MD Abdomen/Pelvis CT 12/14/17 0000 Signed Impressions: Service Date/Time: December 17:31 - CONCLUSION: 1. 7 mm distal left ureteral calculus with moderate hydroureter and hydronephrosis. 2. 2 tiny right renal calculi. 3. Small amount of ascitic fluid along the posterior spleen. Mustapha Grossman MD Medications and IVs Current Medications Medications (Trade) Dose Ordered Sig/Tiera Route Start Time Stop Time Status Last Admin Piperacillin Sod/ Tazobactam Sod 50 ml @ 100 mls/hr Q6H IV 12/15/17 00:00 Sodium Chloride 1,000 ml @ 84 mls/hr [id number] IV 12/14/17 20:00 (NS Flush) 2 ml UNSCH PRN IV FLUSH 12/14/17 19:45 (NS Flush) 2 ml BID IV FLUSH 12/14/17 21:00 (Tylenol) 650 mg Q4H PRN PO 12/14/17 19:45 (Zofran Inj) 4 mg Q6H PRN IVP 12/14/17 19:45 (Narcan Inj) 0.4 mg UNSCH PRN IV PUSH 12/14/17 19:45 (Milk Of Magnesia Liq) 30 ml Q12H PRN PO 12/14/17 19:45 (Senokot) 17.2 mg Q12H PRN PO 12/14/17 19:45 (Dulcolax Supp) 10 mg DAILY PRN RECTAL 12/14/17 19:45 (Lactulose Liq) 30 ml DAILY PRN PO 12/14/17 19:45 (Zetia) 10 mg DAILY PO 12/15/17 09:00 (Synthroid) 75 mcg DAILY@0600 PO 12/15/17 06:00 (Prinivil) 20 mg DAILY PO 12/15/17 09:00 (Lopressor) 25 mg Q12HR PO 12/14/17 21:00 (Ditropan) 10 mg DAILY PO 12/15/17 09:00 (Topamax) 50 mg Q8HR PO 12/14/17 22:00 (Depakene) 500 mg TID PO 12/15/17 09:00 (Xalatan 0.005% Opth Soln) 1 drop HS EACH EYE 12/14/17 21:00 Assessment and Plan Problem List: (1) Fever ICD Code: R50.9 - Fever, unspecified Status: Acute (2) UTI (urinary tract infection) ICD Code: N39.0 - Urinary tract infection, site not specified Status: Acute (3) Kidney stone ICD Code: N20.0 - Calculus of kidney Status: Acute (4) Pyelonephritis ICD Code: N12 - Tubulo-interstitial nephritis, not specified as acute or chronic Status: Acute Assessment and Plan Successful left ureteral stent Continue IV abx Follow culture Will follow Problem Qualifiers (1) Fever: Qualified Codes: R50.9 - Fever, unspecified (2) UTI (urinary tract infection): Qualified Codes: N39.0 - Urinary tract infection, site not specified Kwasi West MD Dec 14, 2017 21:18
[2017-12-14] MEDS ORDERED: DO NOT ADM ANY ANTICOAGULANT DRUGS PRN (22:00)
[2017-12-14] MEDS: TOPIRAMATE 25 MG TAB PO SCH (22:00)
--- NOTE | 2017-12-14 22:46 | PD.CONS ---
[facility] Service Critical Care Medicine Consult Requested By Dr. West Reason for Consult Respiratory failure Sepsis Acute pyelonephritis Left distal obstructing ureteral stone with left hydronephrosis. Primary Care Physician Unknown History of Present Illness Patient is a 67-year-old female with past medical history significant for seizure disorder, hypertension, hyperlipidemia and urinary incontinence who presented to the emergency department for evaluation of altered mental status and severe chills and left flank pain. UA showed evidence of UTI. Patient had a fever up to 102.4. Admitted to hospitalist service for acute pyelonephritis and was started on Zosyn after cultures were drawn. CT of the abdomen pelvis showed 7 mm distal left ureteral calculus with moderate hydroureter and hydronephrosis. Urology Dr. West was consulted. Underwent left 4x24 JJ ureteral stent. According to the post op notes there was almost complete obliteration of the left distal ureter, and it was difficult to pass wire. Patient was left intubated post procedure and critical care was consulted I evaluated the patient in ICU. Hemodynamically stable. Awake on no sedation tolerating CPAP. We'll proceed with extubation after SBT Review of Systems ROS Limitations: Intubated Past Family Social History Allergies: Coded Allergies: fluconazole (Unverified Allergy, Severe, 12/14/17) hydromorphone (Unverified Allergy, Severe, 12/14/17) levetiracetam (Unverified Allergy, Severe, Anaphylaxis, 12/14/17) rifampin (Unverified Allergy, Severe, 12/14/17) phenytoin (Unverified Allergy, Mild, Rash, 12/14/17) Past Medical History Seizure disorder Hypertension Hyperlipidemia Urinary incontinence Past Surgical History Multiple bilateral knee surgeries Back surgeries 2 shoulder surgeries Hysterectomy Reported Medications Lactinex (Lactobacillus Acidophilus) 1 Chew 1 Tab CHEW BID Augmentin (Amoxicillin-Clavulanate) 875-125 Mg Tab 1 Tab PO BID Topamax (Topiramate) 25 Mg Tab 50 Mg PO Q8HR Metoprolol Tartrate 25 Mg Tab 25 Mg PO Q12HR Depakene (Valproic Acid) 250 Mg Cap 250 Mg PO HS Valproic Acid 250 Mg Cap 500 Mg PO TID 30 Days Lisinopril 20 Mg Tab 20 Mg PO DAILY 30 Days Ezetimibe 10 Mg Tab 10 Mg PO DAILY Ditropan (Oxybutynin Chloride) 5 Mg Tab 5 Mg PO DAILY Ditropan (Oxybutynin Chloride) 5 Mg Tab 10 Mg PO DAILY Montelukast (Montelukast Sodium) 10 Mg Tab 10 Mg PO HS Aspir-81 (Aspirin) 81 Mg Tabdr 81 Mg PO DAILY Levothyroxine (Levothyroxine Sodium) 75 Mcg Tab 75 Mcg PO DAILY Alendronate (Alendronate Sodium) 70 Mg Tab 70 Mg PO Q7D Lumigan Opth Drops (Bimatoprost) 0.01% Soln 1 Drop EACH EYE HS Active Ordered Medications Reviewed Family History Unable to obtain as patient is intubated Social History Unable to obtain as the patient is intubated Physical Exam Vital Signs Vital Signs Date Time Temp Pulse Resp B/P (MAP) Pulse Ox O2 Delivery O2 Flow Rate FiO2 12/14/17 22:00 40 12/14/17 22:00 99.1 79 16 100 Mechanical Ventilator 40 12/14/17 21:45 76 19 173/72 (105) 100 Mechanical Ventilator 40 12/14/17 21:30 78 15 182/79 (113) 100 Mechanical Ventilator 40 12/14/17 21:15 98.3 84 14 183/79 (113) 100 Mechanical Ventilator 40 12/14/17 21:15 40 12/14/17 18:21 68 18 151/67 (95) 99 Room Air 12/14/17 16:30 100.0 71 17 161/72 (101) 97 Nasal Cannula 2.00 12/14/17 15:16 102.4 69 16 172/79 (110) 96 Nasal Cannula 2.00 12/14/17 15:16 96 Nasal Cannula 2.00 12/14/17 14:37 100.1 74 20 226/93 (137) 94 Physical Exam GENERAL: 67-year-old female intubated not on sedation SKIN: No rashes, ecchymoses or lesions. Cool and dry. HEAD: Atraumatic. Normocephalic. N EYES: Pupils equal round and reactive. ENT: Orotracheally intubated. Oral cavity moist NECK: Trachea midline. No JVD or lymphadenopathy. CARDIOVASCULAR: Regular rate and rhythm with systolic murmur at the apex RESPIRATORY: Clear to auscultation. Breath sounds equal bilaterally. GASTROINTESTINAL: Abdomen soft, nondistended. No hepato-splenomegaly. There is evidence of left CVA tenderness MUSCULOSKELETAL: Extremities without clubbing, cyanosis, or edema. Extremities well perfused NEUROLOGICAL: Awake and alert. Motor and sensory grossly within normal limits. Laboratory Laboratory Tests Test 12/14/17 15:30 12/14/17 17:00 White Blood Count 8.2 Red Blood Count 4.14 Hemoglobin 14.1 Hematocrit 41.8 Mean Corpuscular Volume 100.9 Mean Corpuscular Hemoglobin 34.1 Mean Corpuscular Hemoglobin Concent 33.8 Red Cell Distribution Width 14.2 Platelet Count 115 Mean Platelet Volume 8.4 Neutrophils (%) (Auto) 81.8 Lymphocytes (%) (Auto) 6.6 Monocytes (%) (Auto) 11.0 Eosinophils (%) (Auto) 0.4 Basophils (%) (Auto) 0.2 Neutrophils # (Auto) 6.7 Lymphocytes # (Auto) 0.5 Monocytes # (Auto) 0.9 Eosinophils # (Auto) 0.0 Basophils # (Auto) 0.0 CBC Comment DIFF FINAL Differential Comment Blood Urea Nitrogen 18 Creatinine 0.68 Random Glucose 100 Total Protein 7.3 Albumin 3.5 Calcium Level 8.8 Alkaline Phosphatase 41 Aspartate Amino Transf (AST/SGOT) 11 Alanine Aminotransferase (ALT/SGPT) 7 Total Bilirubin 0.4 Sodium Level 144 Potassium Level 3.5 Chloride Level 112 Carbon Dioxide Level 24.4 Anion Gap 8 Estimat Glomerular Filtration Rate 86 Lactic Acid Level 1.2 Urine Color YELLOW Urine Turbidity HAZY Urine pH 7.0 Urine Specific [place] 1.012 Urine Protein 100 Urine Glucose (UA) NEG Urine Ketones NEG Urine Occult Blood MOD Urine Nitrite POS Urine Bilirubin NEG Urine Urobilinogen LESS THAN 2.0 Urine Leukocyte Esterase MOD Urine RBC 40 Urine WBC 57 Urine Squamous Epithelial Cells 2 Urine Bacteria RARE Urine Mucus FEW Microscopic Urinalysis Comment CULTURE INDICATED Date/Time Source Procedure Growth Status 12/14/17 15:30 Blood Peripheral Aerobic Blood Culture Pending Received 12/14/17 15:30 Blood Peripheral Anaerobic Blood Culture Pending Received 12/14/17 15:30 Nasal Aspirate Influenza Types A,B Antigen (MARTHA) - Final NEGATIVE FOR FLU A AND B ANTIGEN.... Complete 12/14/17 17:00 Urine Clean Catch Urine Culture Pending Received Result Diagram: 12/14/17 1530 12/14/[address] of the abdomen pelvis shows left ureteral stone with left hydro-ureter and hydronephrosis Septic Shock Reassessment Septic shock perfusion: reassessment completed Assessment and Plan Assessment and Plan ASSESSMENT: Respiratory failure Sepsis Acute pyelonephritis Left distal obstructing ureteral stone with left hydronephrosis. Seizure disorder Hypertension Hyperlipidemia Urinary incontinence PLAN: NEURO: - Minimize sedation. Use Toradol for pain - Continue topiramate and valproic acid RESP: - Spontaneous breathing trial with possible extubation - DuoNeb every 6 hours when necessary - Start incentive spirometry every hour while awake after extubation - Use BiPAP if needed CV: - Normal saline IV fluids 100 ml per hour - Continue metoprolol, continue lisinopril - Lactic acid was normal previously GI: - NPO, start diet in am - Placed on famotidine for GI prophylaxis : - Underwent left 4x24 JJ ureteral stent - Monitor renal function closely. Maintain Ardon catheter. ID: - Continue Zosyn, follow-up on blood and urine cultures HEME: - Monitor CBC, CMP ENDO: - Continue Synthroid, continue Zetia - Electrolyte replacement per protocol PROPH: - Bilateral lower extremity SCDs. Avoid chemical prophylaxis until cleared by urology. IV Famotidine for GI prophylaxis LINES: - Utilize peripheral IVs, central line if needed Level 3 new consult Code Status Full Discussed Condition With RN and RT Murali Baum MD Dec 14, 2017 22:46
--- NOTE | 2017-12-14 23:09 | RADRPT ---
EXAM DATE/TIME: 12/14/2017 22:53 [facility] COMPARISON: CHEST SINGLE AP, December 14, 2017, 14:39. INDICATIONS : Respiratory disease. MEDICAL HISTORY : Cardiovascular disease. Hypertension. Ulcers.seizures SURGICAL HISTORY : Hysterectomy. back surgery, rotator cuff surgery ENCOUNTER: Initial ACUITY: 1 day PAIN SCORE: 0/10 LOCATION: Bilateral chest FINDINGS: Wells rods overlie the thoracolumbar spine. EKG leads overlie the chest. Cardiomegaly. No consol idation or effusion. CONCLUSION: No acute disease. Bryan Hernandez MD on December 14, 2017 at 23:07 Board Certified Radiologist. This report was verified electronically.
[2017-12-14] MEDS ORDERED: KETOROLAC TROMETHAMINE 30 MG/ML (IVP) VIAL IV PUSH PRN (23:15)
[2017-12-14] MEDS ORDERED: RESP: ALBUTEROL 2.5 MG/IPRATROPIUM 0.5 MG NEB (PRN) NEB (23:15)
[2017-12-14] MEDS ORDERED: SODIUM PHOSPHATE INJ 30 MMOL in SODIUM CHLOR 0.9% 250 ML INJ 240 ML IV PRN (23:30)
[2017-12-14] MEDS ORDERED: MAGNESIUM SULFATE INJ 2 GM in SODIUM CHLORIDE 0.9% INJ 96 ML IV PRN (23:30)
[2017-12-14] MEDS ORDERED: POTASSIUM CHLORIDE 25 MEQ EFFERVESCENT TAB PO PRN (23:30)
[2017-12-14] MEDS ORDERED: POTASSIUM PHOSPHATE MONOBASIC 500 MG TAB PO/TUBE PRN (23:30)
[2017-12-14] MEDS ORDERED: POTASSIUM PHOSPHATE MONOBASIC 500 MG TAB PO PRN (23:30)
[2017-12-14] MEDS ORDERED: MAGNESIUM OXIDE 400 MG TAB PO PRN (23:30)
[2017-12-14] MEDS ORDERED: POTASSIUM CHLOR 40 MEQ PREMIX 100 ML IV PRN ×2 (23:30)
[2017-12-14] MEDS ORDERED: POTASSIUM PHOSPHATE INJ 30 MMOL in SODIUM CHLOR 0.9% 250 ML INJ 250 ML IV PRN (23:30)
[2017-12-14] MEDS ORDERED: MAGNESIUM SULFATE INJ 4 GM in SODIUM CHLORIDE 0.9% INJ 92 ML IV PRN (23:30)
[2017-12-14] MEDS ORDERED: POTASSIUM CHLOR 20 MEQ PREMIX 100 ML IV PRN ×2 (23:30)
[2017-12-15] VITALS (11 sets, daily range): BP systolic 109–138; BP diastolic 55–89; PULSE 56–72; RESP 16–20; TEMP 98–98.5; O2SAT 98–100
[2017-12-15] MEDS: PIPERACIL-TAZO 3.375 GM PREMIX 50 ML IV SCH ×3 (00:22→12:33)
[2017-12-15] MEDS: FAMOTIDINE 20 MG/2 ML VIAL IV PUSH SCH ×3 (00:22→23:33)
[2017-12-15] MEDS: LEVOTHYROXINE SODIUM 75 MCG TAB PO SCH (05:08)
[2017-12-15] MEDS: TOPIRAMATE 25 MG TAB PO SCH ×4 (05:09→20:12)
[2017-12-15 06:17] LABS: AUTOMATED NEUTROPHIL # 9.4 TH/MM3 (1.8-7.7); BASOPHIL # 0.2 TH/MM3 (0-0.2); BASOPHIL % 1.8 % (0.0-2.0); EOSINOPHIL % 0.1 % (0.0-4.0); HEMATOCRIT 35.3 % (35.0-46.0); HEMOGLOBIN 11.8 GM/DL (11.6-15.3); LYMPH % 9.7 % (9.0-44.0); LYMPHOCYTE # 1.2 TH/MM3 (1.0-4.8); MEAN CELL VOLUME 102.5 FL (80.0-100.0); MEAN CORPUSCULAR HEMOGLOBIN 34.1 PG (27.0-34.0); MEAN CORPUSCULAR HGB CONC 33.3 % (32.0-36.0); MEAN PLATELET VOLUME 8.5 FL (7.0-11.0); MONO % 10.4 % (0.0-8.0); MONOCYTE # 1.3 TH/MM3 (0-0.9); PLATELET COUNT 107 TH/MM3 (150-450); RED BLOOD COUNT 3.45 MIL/MM3 (4.00-5.30); RED CELL DISTRIBUTION WIDTH 14.5 % (11.6-17.2)
[2017-12-15 06:25] LABS: BICARBONATE 26.1 MEQ/L (21.0-32.0); CALCIUM 8.9 MG/DL (8.5-10.1); CREATININE 0.88 MG/DL (0.50-1.00); MAGNESIUM 1.8 MG/DL (1.5-2.5); PHOSPHORUS 3.4 MG/DL (2.5-4.9)
[2017-12-15] MEDS: SODIUM CHLOR 0.9% 1000 ML INJ 1,000 ML IV SCH ×2 (07:13→19:50)
[2017-12-15] MEDS: METOPROLOL TARTRATE 25 MG TAB PO SCH ×2 (09:00→20:07)
[2017-12-15] MEDS: LISINOPRIL 20 MG TAB PO SCH (09:00)
[2017-12-15] MEDS: SODIUM CHLORIDE 0.9% FLUSH 10 ML FLUSH IV FLUSH SCH ×2 (09:00→20:11)
[2017-12-15] MEDS: VALPROIC ACID 250 MG CAP PO SCH ×3 (10:27→18:00)
[2017-12-15] MEDS: EZETIMIBE 10 MG TAB PO SCH (10:27)
[2017-12-15] MEDS: OXYBUTYNIN CHLORIDE 5 MG TAB PO SCH (10:27)
--- NOTE | 2017-12-15 15:19 | MP ---
cc: MAYLIN ALCAZAR MD DATE OF SURGERY 12/14/2017 PREOPERATIVE DIAGNOSIS Infected obstructing left ureteral stone with evidence of sepsis. POSTOPERATIVE DIAGNOSIS Infected obstructing left ureteral stone with evidence of sepsis. SURGEON Maylin Alcazar M.D. PROCEDURE PERFORMED 1. Cystoscopy. 2. Left retrograde pyelogram. 3. Left ureteroscopy. 4. Left ureteral stent placement, 4 x 24 double-J ureteral stent. 5. Interpretation of radiographic findings. PERTINENT FINDINGS 1. Significant obstruction and difficulty in passing the wire past the left distal stone which was noted on CT scan. 2. Uteroscopy identified an area of significant narrowing stricture and tissue without any obvious stone in the left distal ureter with inability to pass the wire on multiple attempts. 3. Eventual successful placement of a 4 x 24 double-J ureteral stent on the left. INTERPRETATION OF RADIOGRAPHIC FINDINGS 1. Initial retrograde pyelogram identified what appeared to be some evidence of extravasation at the left distal ureter. 2. Minimal contrast entering the proximal ureter from the retrograde pyelogram with area of significant obliteration of the distal ureter. 3. Hydronephrosis noted with what appears to be retained contrast from a prior study. 4. Eventual successful placement of a wire and a 4 x 24 double-J ureteral stent on the left. INDICATION FOR PROCEDURE Lena Márquez is a 67-year-old female who comes in with an obstructed left stone with evidence of sepsis with a fever of 102.4 and left-sided flank pain. She presents for emergent left ureteral stent placement for decompression. CT scan identified a 7 mm left distal ureteral stone with hydronephrosis noted. PROCEDURE IN DETAIL After proper informed consent was obtained, the patient was brought to the operating room and laid supine on the operating table. Bilateral lower extremity SCDs were then placed. The patient was placed under general anesthesia. The patient was placed in the lithotomy position, prepped and draped in the standard surgical fashion. After a proper timeout was completed, a rigid cystoscope was inserted through the urethra into the bladder. The urethral mucosal was within normal limits. The bladder anatomy showed no lesions. Upon entering the bladder the bilateral ureteral orifices were identified. There was evidence of cystitis on cystoscopic evaluation. Attention was then turned to the left ureteral orifice. This was then cannulated using a guidewire and there was significant resistance met into the left distal ureter. Multiple attempts of passing the wire were unsuccessful, therefore, an open-ended 5 Welsh ureteral catheter was passed through the scope over the wire into the left distal ureter. A retrograde pyelogram was completed which identified minimal to no contrast entering the proximal ureter; however, there was some evidence of extravasation of contrast in the distal ureter. There was a filling defect at the distal ureter as well. At this point a Glidewire was passed through the scope through the 5 Welsh open-ended ureteral catheter and attempted to be passed into the proximal ureter; however, this was again unsuccessful with multiple attempts. At this point it was decided to further investigate with a semi-rigid ureteroscope as the patient was currently stable. Therefore, the semi-rigid ureteroscope was advanced to the left distal ureter and advanced up to the level of the stricture. At this point there was frondular tissue that did not appear malignant; however, there was significant narrowing and stenosis of the left distal ureter. An obvious stone was not encountered. There was no obvious lumen encountered. Using direct visualization in combination with fluoroscopy a wire was eventually able to be passed into the proximal ureter. An open-ended ureteral catheter was advanced over the wire into the proximal left ureter. A retrograde pyelogram confirmed the position of this wire with significant left-sided hydronephrosis noted. At this point the wire was replaced and a 4 x 24 double-J ureteral stent was successfully placed in the left collecting system with good curl in the renal pelvis as well as in the bladder. It was felt that a 6 Welsh stent was unlikely able to be passed into this collecting system. At this point the patient's bladder was emptied and the scope was removed. It was decided to leave a catheter at the end of the procedure to maximally drain the patient. The patient was then awoken from anesthesia and taken to the PACU in stable condition. DISPOSITION The patient is to be admitted for overnight observation. Her Ardon catheter may be removed tomorrow morning. Continue IV antibiotics. Maylin Alcazar M.D. SHENA /9:00 PM /2:52 PM MARTHA
--- NOTE | 2017-12-15 15:28 | HHI.PR ---
Subjective Remarks Patient states that there is no pain. She is eating better. She does feel weak. She will try to do more physical therapy. Objective Vitals Vital Signs Date Time Temp Pulse Resp B/P (MAP) Pulse Ox O2 Delivery O2 Flow Rate FiO2 12/15/17 14:00 62 12/15/17 12:00 58 12/15/17 12:00 98.3 58 16 137/64 (88) 100 12/15/17 10:00 58 12/15/17 08:00 56 12/15/17 08:00 98.3 57 17 123/59 (80) 100 12/15/17 07:50 100 Nasal Cannula 2.00 12/15/17 07:00 100 3.00 12/15/17 06:00 60 12/15/17 04:00 60 12/15/17 04:00 98.0 60 16 109/55 (73) 100 12/15/17 02:00 60 12/15/17 00:00 98.4 70 17 132/60 (84) 100 12/15/17 00:00 70 12/14/17 23:20 100 Nasal Cannula 3.00 12/14/17 23:17 100 Nasal Cannula 3 12/14/17 22:40 100 40 12/14/17 22:15 99.6 69 10 141/82 (101) 100 12/14/17 22:00 69 12/14/17 22:00 40 12/14/17 22:00 99.1 79 16 100 Mechanical Ventilator 40 12/14/17 22:00 100 100 12/14/17 21:45 76 19 173/72 (105) 100 Mechanical Ventilator 40 12/14/17 21:30 78 15 182/79 (113) 100 Mechanical Ventilator 40 12/14/17 21:15 98.3 84 14 183/79 (113) 100 Mechanical Ventilator 40 12/14/17 21:15 100 40 12/14/17 21:15 40 12/14/17 18:21 68 18 151/67 (95) 99 Room Air 12/14/17 16:30 100.0 71 17 161/72 (101) 97 Nasal Cannula 2.00 I/O 12/14/17 12/14/17 12/14/17 12/15/17 12/15/17 12/15/17 07:00 15:00 23:00 07:00 15:00 23:00 Intake Total 1000 ml Output Total 2 ml 650 ml Balance 998 ml -650 ml Intake IV Total 1000 ml Output Urine Total 650 ml Estimated Blood Loss 2 ml # Bowel Movements 0 Result Diagram: 12/15/17 0540 12/15/17 0540 Objective Remarks GENERAL: This is a well-nourished, well-developed patient, in no apparent distress. CARDIOVASCULAR: Regular rate and rhythm RESPIRATORY: Clear to auscultation. Breath sounds equal bilaterally. No wheezes , rales, or rhonchi. GASTROINTESTINAL: Abdomen soft, obese, non-tender, nondistended. Normal active bowel sounds MUSCULOSKELETAL: Extremities without clubbing, cyanosis, or edema. NEURO: Alert & Oriented x4 to person, place, time, situation. Moves all ext x4 A/P Assessment and Plan 1. Nephrolithiasis with left hydroureter and hydronephrosis status post op day #1 cystoscope with left stent placement with urology- Ardon removal, continue postoperative care, pain control, will require physical therapy Postoperatively was intubated and tolerated extubation trial overnight. 2. Urinary tract infection with gram-negative rods with final cultures pending - at this time will de-escalate from Zosyn to Rocephin. Follow-up with final cultures. 3. Presenting encephalopathy Likely secondary to urinary tract infection This is improved and resolved 4. Seizure disorder Continue home medications Follow-up with Dr. Headley as an outpatient regarding fatigue with Topamax, will decrease to twice a day dosing until follow-up with neurology. Patient has been taking it only twice a day versus 3 times a day as prescribed by Dr. Headley. Place on seizure precautions. 5. Hypertension/hyperlipidemia/hypothyroidism Continue home medications, lisinopril, Zetia, Synthroid. 6. DVT prophylaxis bilateral SCDs. Lovenox. Transfer out of the intensive care unit Discharge Planning Discharge to home with home health care versus rehabilitation in 1-2 days. Daphney Lopez MD Dec 15, 2017 15:28
[2017-12-15] MEDS: ENOXAPARIN SODIUM 40 MG/0.4 ML SYRINGE SQ SCH (15:54)
[2017-12-15] MEDS: cefTRIAXone INJ 1,000 MG in SODIUM CHLORIDE 0.9% INJ 100 ML IV SCH (15:55)
[2017-12-15] MEDS ORDERED: LORazepam 2 MG/ML VIAL IV PUSH PRN (17:00)
--- NOTE | 2017-12-15 19:57 | HHI.PR ---
Subjective Patient symptoms today Doing well, overall improved. Ardon in place, clear yellow urine. Objective Vital Signs Vital Signs Date Time Temp Pulse Resp B/P (MAP) Pulse Ox O2 Delivery O2 Flow Rate FiO2 12/15/17 16:00 66 12/15/17 16:00 98.5 66 20 127/60 (82) 100 12/15/17 14:00 62 12/15/17 12:00 58 12/15/17 12:00 98.3 58 16 137/64 (88) 100 12/15/17 10:00 58 12/15/17 08:00 56 12/15/17 08:00 98.3 57 17 123/59 (80) 100 12/15/17 07:50 100 Nasal Cannula 2.00 12/15/17 07:00 100 3.00 12/15/17 06:00 60 12/15/17 04:00 60 12/15/17 04:00 98.0 60 16 109/55 (73) 100 12/15/17 02:00 60 12/15/17 00:00 98.4 70 17 132/60 (84) 100 12/15/17 00:00 70 12/14/17 23:20 100 Nasal Cannula 3.00 12/14/17 23:17 100 Nasal Cannula 3 12/14/17 22:40 100 40 12/14/17 22:15 99.6 69 10 141/82 (101) 100 12/14/17 22:00 69 12/14/17 22:00 40 12/14/17 22:00 99.1 79 16 100 Mechanical Ventilator 40 12/14/17 22:00 100 100 12/14/17 21:45 76 19 173/72 (105) 100 Mechanical Ventilator 40 12/14/17 21:30 78 15 182/79 (113) 100 Mechanical Ventilator 40 12/14/17 21:15 98.3 84 14 183/79 (113) 100 Mechanical Ventilator 40 12/14/17 21:15 100 40 12/14/17 21:15 40 Result Diagram: 12/15/17 0540 12/15/17 0540 Objective Remarks NAD Resp NL Ardon clear yellow urine Ext no edema Medications and IVs Current Medications Medications (Trade) Dose Ordered Sig/Tiera Route Start Time Stop Time Status Last Admin Sodium Chloride 1,000 ml @ 84 mls/hr [id number] IV 12/14/17 20:00 12/15/17 07:13 (NS Flush) 2 ml UNSCH PRN IV FLUSH 12/14/17 19:45 (NS Flush) 2 ml BID IV FLUSH 12/14/17 21:00 12/14/17 21:00 (Tylenol) 650 mg Q4H PRN PO 12/14/17 19:45 (Zofran Inj) 4 mg Q6H PRN IVP 12/14/17 19:45 (Narcan Inj) 0.4 mg UNSCH PRN IV PUSH 12/14/17 19:45 (Milk Of Magnesia Liq) 30 ml Q12H PRN PO 12/14/17 19:45 (Senokot) 17.2 mg Q12H PRN PO 12/14/17 19:45 (Dulcolax Supp) 10 mg DAILY PRN RECTAL 12/14/17 19:45 (Lactulose Liq) 30 ml DAILY PRN PO 12/14/17 19:45 (Zetia) 10 mg DAILY PO 12/15/17 09:00 12/15/17 10:27 (Synthroid) 75 mcg DAILY@0600 PO 12/15/17 06:00 (Prinivil) 20 mg DAILY PO 12/15/17 09:00 (Lopressor) 25 mg Q12HR PO 12/14/17 21:00 (Ditropan) 10 mg DAILY PO 12/15/17 09:00 12/15/17 10:27 (Depakene) 500 mg TID PO 12/15/17 09:00 12/15/17 12:33 (Xalatan 0.005% Opth Soln) 1 drop HS EACH EYE 12/14/17 21:00 Miscellaneous Information ALL NURSING DEPARTME... UNSCH PRN .XX 12/14/17 22:00 12/15/17 21:59 (Duoneb Neb) 1 ampule Q6HR NEB PRN NEB 12/14/17 23:15 (Toradol Inj) 15 mg Q6H PRN IV PUSH 12/14/17 23:15 (Pepcid Inj) 20 mg Q12H IV PUSH 12/14/17 23:00 12/15/17 10:27 (Topamax) 50 mg BID PO 12/15/17 21:00 (Lovenox Inj) 40 mg Q24H SQ 12/15/17 16:00 12/15/17 15:54 Ceftriaxone Sodium 1000 mg/ Sodium Chloride 100 ml @ 200 mls/hr Q24H IV 12/15/17 16:00 12/15/17 15:55 (Ativan Inj) 2 mg UNSCH PRN IV PUSH 12/15/17 17:00 Assessment and Plan Problem List: (1) Fever ICD Code: R50.9 - Fever, unspecified Status: Acute (2) UTI (urinary tract infection) ICD Code: N39.0 - Urinary tract infection, site not specified Status: Acute (3) Kidney stone ICD Code: N20.0 - Calculus of kidney Status: Acute (4) Pyelonephritis ICD Code: N12 - Tubulo-interstitial nephritis, not specified as acute or chronic Status: Acute Assessment and Plan -Ardon catheter may be removed at any time per primary team -Patient is clear for discharge from Urology standpoint with follow-up in clinic after discharge -Please call with questions Problem Qualifiers (1) Fever: Qualified Codes: R50.9 - Fever, unspecified (2) UTI (urinary tract infection): Qualified Codes: N39.0 - Urinary tract infection, site not specified Kwasi West MD Dec 15, 2017 19:57
[2017-12-15] MEDS: LATANOPROST 0.005% OPHT SOLN 2.5 ML BTL EACH EYE SCH (20:12)
[2017-12-16] VITALS: BP 138/87; PULSE 92; RESP 18; TEMP 97.5; O2SAT 99
[2017-12-16 04:00] VITALS: BP 169/78; PULSE 68; RESP 18; TEMP 98.1; O2SAT 94
[2017-12-16] MEDS: LEVOTHYROXINE SODIUM 75 MCG TAB PO SCH (06:38)
[2017-12-16] MEDS: SODIUM CHLOR 0.9% 1000 ML INJ 1,000 ML IV SCH (07:39)
[2017-12-16 08:42] VITALS: BP 185/81; PULSE 68; RESP 18; TEMP 98.4; O2SAT 92
[2017-12-16] MEDS: METOPROLOL TARTRATE 25 MG TAB PO SCH (08:47)
[2017-12-16] MEDS: OXYBUTYNIN CHLORIDE 5 MG TAB PO SCH (08:47)
[2017-12-16] MEDS: SODIUM CHLORIDE 0.9% FLUSH 10 ML FLUSH IV FLUSH SCH (08:47)
[2017-12-16] MEDS: LISINOPRIL 20 MG TAB PO SCH (08:50)
[2017-12-16] MEDS: EZETIMIBE 10 MG TAB PO SCH (08:50)
[2017-12-16] MEDS: VALPROIC ACID 250 MG CAP PO SCH ×2 (08:51→12:27)
[2017-12-16] MEDS: TOPIRAMATE 25 MG TAB PO SCH (08:51)
[2017-12-16 09:55] VITALS: O2SAT 92
[2017-12-16] MEDS: FAMOTIDINE 20 MG/2 ML VIAL IV PUSH SCH (11:00)
[2017-12-16 12:19] VITALS: BP 132/75; PULSE 53; RESP 18; TEMP 98.5; O2SAT 94
[2017-12-16] MEDS ORDERED: CEFU1TAB18 PO (15:10)
[2017-12-16] MEDS ORDERED: TOPI25 PO (15:10)
[2017-12-16] MEDS: ENOXAPARIN SODIUM 40 MG/0.4 ML SYRINGE SQ SCH (16:00)
[2017-12-16] MEDS: cefTRIAXone INJ 1,000 MG in SODIUM CHLORIDE 0.9% INJ 100 ML IV SCH (16:00)
[2017-12-16 16:14] VITALS: BP 157/67; PULSE 51; RESP 18; TEMP 98.5; O2SAT 94
--- NOTE | 2017-12-16 19:18 | HHI.PR ---
Subjective Remarks Resting comfortably in bed No event overnight Denied chest and or short of breath No fever or chills Objective Vitals Vital Signs Date Time Temp Pulse Resp B/P (MAP) Pulse Ox O2 Delivery O2 Flow Rate FiO2 12/16/17 16:14 98.5 51 18 157/67 (97) 94 12/16/17 12:19 98.5 53 18 132/75 (94) 94 12/16/17 09:55 92 Nasal Cannula 2.00 12/16/17 08:42 98.4 68 18 185/81 (115) 92 12/16/17 04:00 98.1 68 18 169/78 (108) 94 12/16/17 00:00 97.5 92 18 138/87 (104) 99 12/15/17 20:00 98.0 72 20 138/89 (105) 98 I/O 12/15/17 12/15/17 12/15/17 12/16/17 12/16/17 12/16/17 07:00 15:00 23:00 07:00 15:00 23:00 Intake Total 1089 ml Output Total 650 ml Balance -650 ml 1089 ml Intake Oral 240 ml IV Total 849 ml Output Urine Total 650 ml # Voids 8 2 # Bowel Movements 0 Result Diagram: 12/15/17 0540 12/15/17 0540 Objective Remarks GENERAL: This is a well-nourished, well-developed patient, in no apparent distress. CARDIOVASCULAR: Regular rate and rhythm without murmurs, gallops, or rubs. RESPIRATORY: Clear to auscultation. Breath sounds equal bilaterally. No wheezes , rales, or rhonchi. GASTROINTESTINAL: Abdomen soft, non-tender, nondistended. Normal active bowel sounds MUSCULOSKELETAL: Extremities without clubbing, cyanosis, or edema. NEURO: Alert & Oriented x4 to person, place, time, situation. Moves all ext x4 A/P Assessment and Plan 1. Nephrolithiasis with left hydroureter and hydronephrosis status post op day #1 cystoscope with left stent placement with urology- Ardon removal, continue postoperative care, pain control, will require physical therapy Postoperatively was intubated and tolerated extubation trial overnight. 2. Urinary tract infection with gram-negative rods with status post Zosyn to Rocephin. Final culture positive for Escherichia coli sensitive to Rocephin and Ceftin 3. Presenting encephalopathy Likely secondary to urinary tract infection This is improved and resolved 4. Seizure disorder Continue home medications Follow-up with Dr. Headley as an outpatient regarding fatigue with Topamax, will decrease to twice a day dosing until follow-up with neurology. Patient has been taking it only twice a day versus 3 times a day as prescribed by Dr. Headley. Place on seizure precautions. 5. Hypertension/hyperlipidemia/hypothyroidism Continue home medications, lisinopril, Zetia, Synthroid. 6. DVT prophylaxis bilateral SCDs. Lovenox. /: I discussed with the patient and her in length they asked about Topamax I told patient she can decrease the dose to once a day until she follow with Dr. Headley, otherwise she is stable to go on Ceftin and follow up with urology Discharge Planning Discharge patient to home Condition on discharge: Improved Healthy heart Diet as tolerated Ad Toshia activity Rx written: Ceftin for 10 days Follow-up with primary care physician, urology and neurology in one week Priya Valentin MD Dec 16, 2017 19:18
== END 2017-12-16 17:38 | disposition home or self-care (01) | DRG 871 ==
LOC: NEPE 14:24 → NEDH 18:29 → N03A 22:04 → N05A 12-15 17:14
PROVIDERS: ADMIT Hospitalist; ATTEND Hospitalist
PROC: BT1F1ZZ Fluoroscopy of Left Kidney, Ureter and Bladder using Low Osmolar Contrast (ICD-10-PCS; 2017-12-14)
PROC: 0T778DZ Dilation of Left Ureter with Intraluminal Device, Via Natural or Artificial Opening Endoscopic (ICD-10-PCS; principal; 2017-12-14 19:59)
DX: A41.9 Sepsis, unspecified organism (principal); J96.90 Respiratory failure, unspecified, unspecified whether with hypoxia or hypercapnia; G93.40 Encephalopathy, unspecified; N13.6 Pyonephrosis; N20.2 Calculus of kidney with calculus of ureter; I10 Essential (primary) hypertension; M19.90 Unspecified osteoarthritis, unspecified site; J45.909 Unspecified asthma, uncomplicated; E78.5 Hyperlipidemia, unspecified; E03.9 Hypothyroidism, unspecified; Z96.653 Presence of artificial knee joint, bilateral; K21.9 Gastro-esophageal reflux disease without esophagitis; G40.909 Epilepsy, unspecified, not intractable, without status epilepticus; B96.20 Unspecified Escherichia coli [E. coli] as the cause of diseases classified elsewhere; R53.1 Weakness
CPT/HCPCS: 36600; 71045; 74177; 74420; 80048; 80053; 81001; 82805; 83605; 83735; 84100; 85025; 87040; 87077; 87086; 87186; 87641; 87804; 94002; 94150; 96374; C1769; J0330; J0696; J1650; J2405; J2543; J3010; J7030; J7120; Q9967

== ENCOUNTER 2018-02-10 11:08 | Inpatient (IN) | payer MEDICARE ==
[2018-02-10] VITALS (15 sets, daily range): BP systolic 114–196; BP diastolic 57–86; PULSE 87–126; RESP 14–18; TEMP 99.1–103.2; O2SAT 98–100
[~2018-02-10 11:08] MED LIST changes: +CEFU1TAB18 PO; -LABETALOL HCL 100 MG/20 ML VIAL IV ONE; -LACTATED RINGER'S 1000 ML INJ 1,000 ML IV ONE; -LIDOCAINE HCL 1% PF 5 ML SYRINGE OTHER ONE; -ONDANSETRON HCL 4 MG/2 ML VIAL IV ONE; -PROPOFOL 200 MG/20 ML AMP IV ONE; -SUCCINYLCHOLINE CHLORIDE 200 MG/10 ML VIAL IV ONE; -ePHEDrine/NS 25 MG/5 ML SYRINGE IV ONE
[2018-02-10] MEDS ORDERED: LORazepam 2 MG/ML VIAL ONE (11:11)
[2018-02-10] MEDS ORDERED: ETOMIDATE 20 MG/10 ML VIAL IV PUSH ONE (11:15)
[2018-02-10] MEDS ORDERED: SODIUM CHLORIDE 0.9% FLUSH 10 ML FLUSH IV FLUSH PRN (11:15)
[2018-02-10] MEDS ORDERED: LORazepam 2 MG/ML VIAL IV PUSH ONE (11:15)
[2018-02-10] MEDS ORDERED: SUCCINYLCHOLINE CHLORIDE 100 MG/5 ML SYRINGE IV PUSH ONE (11:15)
[2018-02-10] MEDS ORDERED: ETOMIDATE 40 MG/20 ML VIAL ONE (11:20)
[2018-02-10] MEDS ORDERED: SUCCINYLCHOLINE CHLORIDE 200 MG/10 ML VIAL ONE (11:21)
[2018-02-10] MEDS ORDERED: PROPOFOL 500 MG/50 ML INJ 50 ML ONE (11:21)
[2018-02-10 11:53] LABS: AUTOMATED NEUTROPHIL # 16.9 TH/MM3 (1.8-7.7); BASOPHIL # 0.2 TH/MM3 (0-0.2); BASOPHIL % 0.8 % (0.0-2.0); HEMATOCRIT 43.4 % (35.0-46.0); HEMOGLOBIN 14.3 GM/DL (11.6-15.3); LYMPH % 10.7 % (9.0-44.0); LYMPHOCYTE # 2.4 TH/MM3 (1.0-4.8); MEAN CELL VOLUME 101.7 FL (80.0-100.0); MEAN CORPUSCULAR HEMOGLOBIN 33.5 PG (27.0-34.0); MEAN CORPUSCULAR HGB CONC 32.9 % (32.0-36.0); MEAN PLATELET VOLUME 8.8 FL (7.0-11.0); MONO % 12.5 % (0.0-8.0); MONOCYTE # 2.8 TH/MM3 (0-0.9); PLATELET COUNT 185 TH/MM3 (150-450); RED BLOOD COUNT 4.27 MIL/MM3 (4.00-5.30); RED CELL DISTRIBUTION WIDTH 15.9 % (11.6-17.2); WHITE BLOOD COUNT 22.2 TH/MM3 (4.0-11.0)
--- NOTE | 2018-02-10 11:59 | RADRPT ---
EXAM DATE/TIME: 02/10/2018 11:34 [facility] COMPARISON: CHEST SINGLE AP, December 14, 2017, 22:53. INDICATIONS : Post intubation. Seizures. MEDICAL HISTORY : Cardiovascular disease. Hypertension. Ulcers. seizures. SURGICAL HISTORY : Hysterectomy. back surgery, rotator cuff surgery ENCOUNTER: Initial ACUITY: 1 day PAIN SCORE: Non-responsive. LOCATION: Bilateral chest FINDINGS: A single AP supine portable view of the chest was obtained and demonstrates the endotracheal tube in place with tip 3 cm above the alfreda. There has been placement of a nasogastric tube which is seen co ursing through the esophagus into the stomach. No confluent infiltrates or effusions are present. The heart size is within normal limits. Postoperative changes are noted in the thoracic and lumbar spine with pedicle screws and posterior fixation rods. CONCLUSION: 1. Endotracheal tube in place. 2. Interval placement of nasogastric tube. 3. No acute cardiac pulmonary disease. Mustapha Grossman MD on February 10, 2018 at 11:56 Board Certified Radiologist. This report was verified electronically.
[2018-02-10 12:08] LABS: BACTERIA, URINE FEW /hpf; BILIRUBIN, URINE NEG (NEG); BLOOD, URINE LARGE (NEG); GLUCOSE,URINE NEG (NEG); KETONE, URINE NEG (NEG); MUCUS URINE FEW /lpf (OCC); NITRITE,URINE NEG (NEG); URINE COLOR YELLOW (YELLW/STRAW); URINE LEUKOCYTE ESTERASE LARGE (NEG); WHITE BLOOD CELL CLUMPS MANY
[2018-02-10 12:17] LABS: ALT (GPT) 13 U/L (10-53)
[2018-02-10 12:33] LABS: BANDS 24 % (0-6); LYMPHOCYTES 5 % (9-44); MONOCYTES 9 % (0-8); NEUTROPHIL # MANUAL DIFF 19.1 TH/MM3 (1.8-7.7); POLYS (SEG NEUTROPHILS) 62 % (16-70)
[2018-02-10] MEDS ORDERED: PROPOFOL 1000 MG/100 ML INJ 100 ML IV PRN ×2 (12:45→15:00)
[2018-02-10 12:48] LABS: ALBUMIN 3.4 GM/DL (3.4-5.0); ALKALINE PHOSPHATASE 104 U/L (45-117); AST (GOT) 36 U/L (15-37); BICARBONATE 23.4 MEQ/L (21.0-32.0); BLOOD UREA NITROGEN 19 MG/DL (7-18); CALCIUM 8.9 MG/DL (8.5-10.1); CHLORIDE 107 MEQ/L (98-107); CREATININE 0.83 MG/DL (0.50-1.00); GLOMERULAR FILTRATION RATE 68 ML/MIN (>89); GLUCOSE,RANDOM 160 MG/DL (74-106); SODIUM (NA) 139 MEQ/L (136-145); TOTAL BILIRUBIN ADULT 0.5 MG/DL (0.2-1.0); TOTAL PROTEIN 7.8 GM/DL (6.4-8.2); TROPONIN I LESS THAN 0.02 NG/ML (0.02-0.05)
--- NOTE | 2018-02-10 12:48 | RADRPT ---
EXAM DATE/TIME: 02/10/2018 12:19 [place] COMPARISON: CT BRAIN W/O CONTRAST, November 08, 2017, 18:30. INDICATIONS : Altered mental status, possible seizure. RADIATION DOSE: 40.59 CTDIvol (mGy) MEDICAL HISTORY : Seizures. Hypothyroidism. Hypertension. SURGICAL HISTORY : None. ENCOUNTER: Initial ACUITY: 1 day PAIN SCALE: Non-responsive LOCATION: cranial TECHNIQUE: Multiple contiguous axial images were obtained of the head. Using automated exposure control and adj ustment of the mA and/or kV according to patient size, radiation dose was kept as low as reasonably a chievable to obtain optimal diagnostic quality images. DICOM format image data is available electro nically for review and comparison. FINDINGS: CEREBRUM: The ventricles are normal for age. No evidence of midline shift, mass lesion, hemorrhage or acute in farction. No extra-axial fluid collections are seen. POSTERIOR FOSSA: The cerebellum and brainstem are intact. The 4th ventricle is midline. The cerebellopontine angle i s unremarkable. EXTRACRANIAL: The visualized portion of the orbits is intact. SKULL: The calvaria is intact. No evidence of skull fracture. CONCLUSION: Stable negative noncontrast CT. Mustapha Grossman MD on February 10, 2018 at 12:45 Board Certified Radiologist. This report was verified electronically.
[2018-02-10] MEDS ORDERED: cefTRIAXone INJ 1,000 MG in SODIUM CHLORIDE 0.9% INJ 100 ML IV ONE (13:00)
[2018-02-10 13:08] LABS: LACTIC ACID SEPSIS PROTOCOL 2.8 mmol/L (0.4-2.0)
--- NOTE | 2018-02-10 13:09 | PD ---
HPI . Stroke alert Chief Complaint: Altered Mental Status Time Seen by Provider: 11:12 Travel History International Travel<30 days: No Contact w/Intl Traveler<30days: No Traveled to known affect area: No History of Present Illness HPI This patient is brought to us by [facility] as a stroke alert. History was obtained from [facility]. The patient was last seen normal at 3 AM. Her tried to awaken her at 10:30 AM but was unable to arouse her. [facility] was called. On their evaluation, they found her to be flaccid on the right. Stroke alert was called and she was brought to the hospital. This patient presents to us 8 hours after she was last seen normal. The patient is unable to give any history. Medical history per her old records includes hypertension, seizure disorder with previous status epilepticus, dyslipidemia and hypothyroidism. PFSH Past Medical History Arthritis: Yes Asthma: Yes Cancer: No Cardiovascular Problems: Yes High Cholesterol: Yes Congestive Heart Failure: No COPD: No Cerebrovascular Accident: No Diabetes: No Endocrine: Yes Gastrointestinal Disorders: Yes GERD: No Genitourinary: No Hypertension: Yes Immune Disorder: No Implanted Vascular Access Dvce: Yes Musculoskeletal: Yes Neurologic: Yes Psychiatric: No Reproductive: No Respiratory: Yes Migraines: Yes Seizures: Yes Thyroid Disease: Yes (HYPOTHYROIDISM) Ulcer: Yes ?: Not Menopausal: Yes Past Surgical History Abdominal Surgery: Yes (hyst and ) Body Medical Devices: bilateral knee replacements Cardiac Surgery: No Section: Yes Ear Surgery: No Endocrine Surgery: No Eye Surgery: Yes (cataract removal) Genitourinary Surgery: No Gynecologic Surgery: Yes (, HYSTERECTOMY) Hysterectomy: Yes Joint Replacement: Yes (BILATERAL KNEE REPLACEMENT) Neurologic Surgery: Yes Oral Surgery: No Thoracic Surgery: Yes Other Surgery: Yes Social History Alcohol Use: No Tobacco Use: No Substance Use: No Allergies-Medications (Allergen,Severity, Reaction): Coded Allergies: fluconazole (Unverified Allergy, Severe, 02/10/18) hydromorphone (Unverified Allergy, Severe, 02/10/18) levetiracetam (Unverified Allergy, Severe, Anaphylaxis, 02/10/18) rifampin (Unverified Allergy, Severe, 02/10/18) phenytoin (Unverified Allergy, Mild, Rash, 02/10/18) Reported Meds & Prescriptions Reported Meds & Active Scripts Active Depakene (Valproic Acid) 250 Mg Cap 250 Mg PO HS Valproic Acid 250 Mg Cap 500 Mg PO TID 30 Days Lisinopril 20 Mg Tab 20 Mg PO DAILY 30 Days Reported Ezetimibe 10 Mg Tab 10 Mg PO DAILY Ditropan (Oxybutynin Chloride) 5 Mg Tab 5 Mg PO DAILY Montelukast (Montelukast Sodium) 10 Mg Tab 10 Mg PO HS Aspir-81 (Aspirin) 81 Mg Tabdr 81 Mg PO DAILY Levothyroxine (Levothyroxine Sodium) 75 Mcg Tab 75 Mcg PO DAILY Alendronate (Alendronate Sodium) 70 Mg Tab 70 Mg PO Q7D Lumigan Opth Drops (Bimatoprost) 0.01% Soln 1 Drop EACH EYE HS Review of Systems ROS Limitations: Altered Mental Status Physical Exam Narrative GENERAL: The patient is gazing to the left she had sonorous respirations. SKIN: warm/dry. HEAD: Normocephalic. Atraumatic. EYES: Left gaze. ENT: No nasal bleeding or discharge. Mucous membranes pink and moist. NECK: Trachea midline. Full range of motion without pain.. CARDIOVASCULAR: Regular rate and rhythm. Sinus tachycardia. RESPIRATORY: No accessory muscle use. Clear to auscultation. Breath sounds equal bilaterally. MUSCULOSKELETAL: No obvious deformities. NEUROLOGICAL: Eyes are open and she is gazing to the left. No verbal response. Right side is flaccid. PSYCHIATRIC: Unable to assess. Data Data Last Documented VS Vital Signs Date Time Temp Pulse Resp B/P (MAP) Pulse Ox O2 Delivery O2 Flow Rate FiO2 02/10/18 12:46 100 100 02/10/18 11:35 99.1 92 18 155/74 (101) Ventilator Orders Orders Lorazepam Inj (Ativan Inj) (02/10/18 11:11) Electrocardiogram (02/10/18 11:15) Complete Blood Count With Diff (02/10/18 11:15) Comprehensive Metabolic Panel (02/10/18 11:15) Creatine Kinase (Cpk) (02/10/18 11:15) Prothrombin Time / Inr (Pt) (02/10/18 11:15) Act Partial Throm Time (Ptt) (02/10/18 11:15) Troponin I (02/10/18 11:15) Thyroid Stimulating Hormone (02/10/18 11:15) Urinalysis - C+S If Indicated (02/10/18 11:15) Lactic Acid Sepsis Protocol (02/10/18 11:15) Chest, Single Ap (02/10/18 11:15) Ct Brain W/O Iv Contrast(Rout) (02/10/18 11:15) Ecg Monitoring (02/10/18 11:15) Iv Access Insert/Monitor (02/10/18 11:15) Cath For Specimen (02/10/18 11:15) Oximetry (02/10/18 11:15) Oxygen Administration (02/10/18 11:15) Urinary Catheter Insert/Apply (02/10/18 11:15) Sodium Chloride 0.9% Flush (Ns Flush) (02/10/18 11:15) Lorazepam Inj (Ativan Inj) (02/10/18 11:15) Valproic Acid (Depakene) (02/10/18 11:15) Etomidate Inj (Amidate Inj) (02/10/18 11:15) Succinylcholine Inj (Quelicin Inj) (02/10/18 11:15) Etomidate Inj (Amidate Inj) (02/10/18 11:20) Propofol 500 Mg/50 Ml Inj (Diprivan 500 (02/10/18 11:21) Succinylcholine Inj (Quelicin Inj) (02/10/18 11:21) Insert Ng Tube (02/10/18 11:26) Urine Culture (02/10/18 11:41) Propofol 1000 Mg/100 Ml Inj (Diprivan 10 (02/10/18 12:45) Ceftriaxone Inj (Rocephin Inj) (02/10/18 13:00) Labs Laboratory Tests Test 02/10/18 11:41 02/10/18 12:30 White Blood Count 22.2 TH/MM3 Red Blood Count 4.27 MIL/MM3 Hemoglobin 14.3 GM/DL Hematocrit 43.4 % Mean Corpuscular Volume 101.7 FL Mean Corpuscular Hemoglobin 33.5 PG Mean Corpuscular Hemoglobin Concent 32.9 % Red Cell Distribution Width 15.9 % Platelet Count 185 TH/MM3 Mean Platelet Volume 8.8 FL Neutrophils (%) (Auto) 76.0 % Lymphocytes (%) (Auto) 10.7 % Monocytes (%) (Auto) 12.5 % Eosinophils (%) (Auto) 0.0 % Basophils (%) (Auto) 0.8 % Neutrophils # (Auto) 16.9 TH/MM3 Lymphocytes # (Auto) 2.4 TH/MM3 Monocytes # (Auto) 2.8 TH/MM3 Eosinophils # (Auto) 0.0 TH/MM3 Basophils # (Auto) 0.2 TH/MM3 CBC Comment AUTO DIFF Differential Total Cells Counted 100 Neutrophils % (Manual) 62 % Band Neutrophils % 24 % Lymphocytes % 5 % Monocytes % 9 % Neutrophils # (Manual) 19.1 TH/MM3 Differential Comment FINAL DIFF MANUAL Platelet Estimate NORMAL Platelet Morphology Comment NORMAL Prothrombin Time 10.0 SEC Prothromb Time International Ratio 1.0 RATIO Activated Partial Thromboplast Time 21.5 SEC Urine Color YELLOW Urine Turbidity CLOUDY Urine pH 6.0 Urine Specific [place] 1.017 Urine Protein 300 mg/dL Urine Glucose (UA) NEG mg/dL Urine Ketones NEG mg/dL Urine Occult Blood LARGE Urine Nitrite NEG Urine Bilirubin NEG Urine Urobilinogen LESS THAN 2.0 MG/DL Urine Leukocyte Esterase LARGE Urine RBC /hpf Urine WBC /hpf Urine WBC Clumps MANY Urine Bacteria FEW /hpf Urine Mucus FEW /lpf Microscopic Urinalysis Comment CATH-CULTURE IND Blood Urea Nitrogen 19 MG/DL Creatinine 0.83 MG/DL Random Glucose 160 MG/DL Total Protein 7.8 GM/DL Albumin 3.4 GM/DL Calcium Level 8.9 MG/DL Alkaline Phosphatase 104 U/L Aspartate Amino Transf (AST/SGOT) 36 U/L Alanine Aminotransferase (ALT/SGPT) 13 U/L Total Bilirubin 0.5 MG/DL Sodium Level 139 MEQ/L Potassium Level 4.4 MEQ/L Chloride Level 107 MEQ/L Carbon Dioxide Level 23.4 MEQ/L Anion Gap 9 MEQ/L Estimat Glomerular Filtration Rate 68 ML/MIN Total Creatine Kinase 44 U/L Troponin I LESS THAN 0.02 NG/ML Thyroid Stimulating Hormone 3rd Gen 1.270 uIU/ML Valproic Acid (Depakene) Level 77 MCG/ML MDM Medical Screen Exam Complete: Yes Emergency Medical Condition: Yes Medical Record Reviewed: Yes (Please see her HPI for review of records.) EKG Prior to Arrival: No Differential Diagnosis Differential diagnosis includes but is not limited to TIA, CVA, brain tumor, migraine, anxiety Narrative Course This patient presented to us as a stroke alert. She had a seizure as [facility] was moving her from [facility] to our stretcher. This was treated with Ativan. Patient has sonorous respirations and was intubated. An IV was started. The patient was sent for CT. She is also had a chest x-ray , EKG, routine labs. Her urine does show UTI. She was treated with Rocephin. Last Impressions Head CT 02/10/18 1115 Signed Impressions: Service Date/Time: Saturday, February 10, 2018 12:19 - CONCLUSION: Stable negative noncontrast CT. Mustapha Grossman MD Chest X-Ray 02/10/18 1115 Signed Impressions: Service Date/Time: Saturday, February 10, 2018 11:34 - CONCLUSION: 1. Endotracheal tube in place. 2. Interval placement of nasogastric tube. 3. No acute cardiac pulmonary disease. Mustapha Grossman MD CBC & BMP Diagram 02/10/18 11:41 Total Protein 7.8, Albumin 3.4, Calcium Level 8.9, Alkaline Phosphatase 104, Aspartate Amino Transf (AST/SGOT) 36, Alanine Aminotransferase (ALT/SGPT) 13, Total Bilirubin 0.5 trop < 0.02 Valproic acid level 77 UA shows large leukocyte esterase, many white blood cell clumps, too numerous to count white cells, few bacteria. This patient will be admitted to the intensive care unit. Critical Care Narrative Aggregate critical care time was 45 minutes. Time to perform other separately billable procedures was not included in the critical care time. My time did not include minutes spent treating any other patients simultaneously or on activities that did not directly contribute to the patient's treatment. The services I provided to this patient were to treat and/or prevent clinically significant deterioration due to acutely altered mental status, rule out stroke , rule out status epilepticus I provided critical care services requiring my management, as noted below: Chart data review, documentation time, medication orders and management, vital sign assessments/reviewing monitor data, ordering and reviewing lab tests, ordering and interpreting/reviewing x-rays and diagnostic studies, care of the patient and discussion of the patient with the admitting physicians Stroke Alert NIHSS NIH Stroke Scale Result: 12 NIHSS Time Completed: 11:10 Procedures Procedure Narrative After the risks and benefits were discussed the following procedure was performed: INTUBATION: The patient was put in optimal position for the procedure. Rapid sequence intubation was initiated by using 20 milligrams of etomidate IV and 100 milligrams of succinylcholine IV. The patient was intubated with a 7.5 cuffed endotracheal tube. Tube placement was confirmed by visualization of the tube and balloon passing through the cords, capnometry and subsequent chest x-ray. Breath sounds were equal and well aerated bilaterally postintubation. No breath sounds over stomach. Patient tolerated procedure well. Interpretation(s) EKG shows a sinus rhythm with rate of 117. Diagnosis Diagnosis: Primary Impression: Altered mental status Qualified Codes: R40.2432 - Jonny coma scale score 3-8, at arrival to emergency department Admitting Physician Requests: Admit Condition: Serious Antoinette Tariq MD Feb 10, 2018 13:09
[2018-02-10] MEDS ORDERED: POTASSIUM PHOSPHATE MONOBASIC 500 MG TAB PO PRN (13:15)
[2018-02-10] MEDS ORDERED: CHLORHEXIDINE GLUCONATE 2 % 1 PACK (2 CLOTHS) TOP PRN (13:15)
[2018-02-10] MEDS ORDERED: POTASSIUM CHLOR 40 MEQ PREMIX 100 ML IV PRN ×2 (13:15)
[2018-02-10] MEDS ORDERED: MAGNESIUM SULFATE INJ 2 GM in SODIUM CHLORIDE 0.9% INJ 96 ML IV PRN (13:15)
[2018-02-10] MEDS ORDERED: DEXTROSE 50% IN WATER 50 ML VIAL(D50) IV PUSH PRN (13:15)
[2018-02-10] MEDS ORDERED: ONDANSETRON HCL 4 MG/2 ML VIAL IV PUSH PRN (13:15)
[2018-02-10] MEDS ORDERED: MAGNESIUM OXIDE 400 MG TAB PO PRN (13:15)
[2018-02-10] MEDS ORDERED: MAGNESIUM HYDROXIDE SUSP 30 ML CUP PO PRN (13:15)
[2018-02-10] MEDS ORDERED: MAGNESIUM SULFATE INJ 4 GM in SODIUM CHLORIDE 0.9% INJ 92 ML IV PRN (13:15)
[2018-02-10] MEDS ORDERED: BISACODYL 10 MG SUPP RECTAL PRN (13:15)
[2018-02-10] MEDS ORDERED: MISCELLANEOUS NURSING INFORMATION XX SCH (13:15)
[2018-02-10] MEDS ORDERED: POTASSIUM PHOSPHATE INJ 30 MMOL in SODIUM CHLOR 0.9% 250 ML INJ 250 ML IV PRN (13:15)
[2018-02-10] MEDS ORDERED: POTASSIUM CHLOR 20 MEQ PREMIX 100 ML IV PRN (13:15)
[2018-02-10] MEDS ORDERED: SODIUM PHOSPHATE INJ 30 MMOL in SODIUM CHLOR 0.9% 250 ML INJ 240 ML IV PRN (13:15)
[2018-02-10] MEDS ORDERED: LACTULOSE SYRUP 20 GM/30 ML CUP PO PRN (13:15)
[2018-02-10] MEDS ORDERED: RESP: ALBUTEROL 2.5 MG/IPRATROPIUM 0.5 MG NEB (PRN) INH (13:15)
[2018-02-10] MEDS ORDERED: SENNOSIDES 8.6 MG TAB PO PRN (13:15)
[2018-02-10] MEDS ORDERED: POTASSIUM PHOSPHATE MONOBASIC 500 MG TAB PO/TUBE PRN (13:15)
[2018-02-10] MEDS ORDERED: levETIRAcetam INJ 100 ML IV ONE ×2 (14:00→14:15)
[2018-02-10] MEDS ORDERED: MIDAZOLAM HCL 5 MG/ML VIAL (1 ML) ONE ×2 (14:09→14:15)
[2018-02-10] MEDS ORDERED: MIDAZOLAM HCL 2 MG/2 ML VIAL IV PUSH ONE (14:13)
[2018-02-10] MEDS ORDERED: TOPIRAMATE 200 MG TAB PO ONE (14:15)
[2018-02-10] MEDS ORDERED: MIDAZOLAM 100 MG/100 ML INJ 100 ML ONE (14:18)
[2018-02-10] MEDS: MIDAZOLAM 100 MG/100 ML INJ 100 ML IV PRN ×2 (14:27→21:18)
[2018-02-10] MEDS ORDERED: VALPROATE INJ 500 MG in SODIUM CHLORIDE 0.9% INJ 100 ML IV SCH (15:00)
[2018-02-10] MEDS ORDERED: RASS Change Order XX ONE (15:00)
--- NOTE | 2018-02-10 15:18 | MB ---
cc: Loy Headley MD, PhD DATE: 02/10/2018 REASON FOR CONSULTATION: Status epilepticus. HISTORY OF PRESENT ILLNESS: Ms. Márquez is a 67-year-old woman who has a history of seizure disorder. She was on Depakote and Topamax. Her last seizure was in October. She was stable on this regimen; however, her stopped it about 3 or 4 weeks ago because she was very lethargic. He states that she was like a "zombie." She also has been taking tramadol intermittently for pain, today began staring blankly into space, having right gaze deviation of her eyes. She had some twitching of the right arm and weakness of the right arm. Her could not arouse her, therefore called [facility]. She was flaccid on the right side. She had an EEG performed stat which revealed continuous epileptiform activity in the left temporal lobe area. She has since been given Versed a 10 mg bolus and now on a Versed drip, which has been titrated up to 10 mg per hour. Her seizure activity has stopped on the EEG with occasional sharp activity in the left temporal area, but no ongoing seizures. There is no tonic-clonic activity. PAST MEDICAL HISTORY: She has history of seizure disorder, arthritis, asthma, gastrointestinal disorder, hypothyroidism, history of , bilateral knee surgery. She has a history of glaucoma, GERD, and lumbar surgery. ALLERGIES: KEPPRA, RIFAMPIN, DILANTIN, FLUCONAZOLE AND HYDROMORPHONE. MEDICATIONS: 1. Depakene 250 mg at bedtime, 500 mg t.i.d. 2. Lisinopril 20 mg daily. 3. Levothyroxine. 4. Lumigan ophthalmic drops. 5. Alendronate. 6. Ditropan. 7. Ezetimibe. NEUROLOGIC EXAMINATION: VITAL SIGNS: Blood pressure 116/57, pulse is 90, respiratory rate is 14, temperature 99 degrees. HIGHER CORTICAL FUNCTION: She is sedated at this time and unresponsive. She is intubated on a Versed drip as noted above. Pupils are equal and reactive. There is no longer any gaze preference. MOTOR EXAM: She has generalized weakness. No focal deficits. No tonic-clonic activity is identified. REFLEXES: 2+, symmetric. IMAGING STUDIES: CT of the brain is normal. LABORATORY DATA: The white count is 22,000; hemoglobin 14.3; hematocrit 43%; platelet count 185,000. Sodium is 139, potassium 4.4, chloride 107, CO2 of 23.4, BUN is 19, creatinine 0.83, GFR 68, glucose is 160, AST 36, ALT is 13. TSH 1.27. Tox screen, Depakote level is 77. UA: pH is 6, specific gravity of 1.017, protein is 300. Many WBCs are identified. PT 10, INR 1, APTT 21.5. IMPRESSION: Status epilepticus with left temporal lobe focus. There is no evidence of stroke. RECOMMENDATION: Continue the Versed drip. We will continue the current level of Depakene but will raise the level slightly. We will also add Vimpat 100 mg IV q.8 hours. I spoke with her . He does not her resumed on Topamax as he states she had severe side effects. I also recommend avoiding Ultram in the future. We will also obtain a brain MRI, repeat EEG as well in the a.m. Loy Headley MD, PhD FERMIN/ADILIA , 02:49 PM , 03:17 PM
[2018-02-10] MEDS: RESP: ALBUTEROL 2.5 MG/IPRATROPIUM 0.5 MG NEB (SCH) INH ×2 (15:49→21:43)
--- NOTE | 2018-02-10 16:13 | MG ---
cc: Loy Headley MD, PhD DATE OF STUDY: 02/10/2018 TEST NUMBER: [id number] TECHNIQUE: A 17-channel EEG. DESCRIPTION: The EEG reveals an abnormality in the left hemisphere, mainly involving the left temporal lobe, but also somewhat the frontal lobe where there is nearly continuous sharp activity. Initially, the tracing is slow in the theta range, but then the sharp activity with phase reversal occurs, mostly in the temporal lobe in a continuous fashion, consistent with seizure activity. The patient was given 10 mg of IV Versed during the tracing, and then the activity subsides with only occasional sharp waves in that distribution. She has also been started on a Versed drip 10 mg per hour and the epileptiform activity has completely resolved. There is generalized slowing, a little bit more over the left hemisphere than the right, in the theta and delta frequencies. INTERPRETATION: Abnormal study, consistent with initial status epilepticus in the left temporal region, which resolved after IV Versed. There is postictal slowing in the left hemisphere. Loy Headley MD, PhD FERMIN/ADILIA , 03:46 PM , 04:12 PM
[2018-02-10] MEDS: ENOXAPARIN SODIUM 40 MG/0.4 ML SYRINGE SQ SCH (16:16)
[2018-02-10] MEDS: SODIUM CHLOR 0.9% 1000 ML INJ 1,000 ML IV SCH ×2 (16:17→20:00)
--- NOTE | 2018-02-10 16:21 | HHI.HP ---
[facility] Service Critical Care Medicine Primary Care Physician yTe Wing MD Admission Diagnosis acute altered mental status Diagnosis: Chief Complaint: altered mental status Travel History International Travel<30 Days: No Contact w/Intl Traveler <30 Da: No Traveled to Known Affected Are: No History of Present Illness This is a 67-year-old female with a history of poorly controlled seizures who presents with acute altered mental status. She was last seen normal at 3 AM this morning. Initially she was considered to be a stroke alert, however CT noncontrasted brain was negative and her nonfocal appearance was much more suggestive of seizures and stroke, along with the fact that her last seen normal time was significantly delayed. Stat EEG was ordered and she was found to be in status epilepticus. She was emergently intubated due to her poor mental status. I was called immediately down to the bedside for the EEG demonstrating status. At the bedside, I pushed 10 mg of Versed IV 1 and started her on a Versed drip at 10 mg an hour. No information is available from the patient due to her mental status. ROS is unobtainable. The majority of the information I have is obtained from medical record, and in specifically the H&P documented by Dr. Guerra back in October 2017, which is very helpful. In reading through her chart, it appears that when she comes off her Topamax, she goes into status. It appears that she has recently come off Topamax again due to side effects. She is anaphylactically allergic to Keppra and phenytoin, so these are not available to us to use. Versed drip was used successfully in her last admission October 2017, so that is what we have chosen. I have spoken with Dr. Headley who is not only an on-call neurologist but her personal neurologist who sees her frequently, and he agrees with this plan. He also thinks that Vimpat is a good option for seizure control, which I agree with. We will plan to load her with that. We will leave her on EEG until we can get control of her seizures. Review of Systems ROS Limitations: Clinical Condition, Intubated, Altered Mental Status Past Family Social History Allergies: Coded Allergies: fluconazole (Unverified Allergy, Severe, 02/10/18) hydromorphone (Unverified Allergy, Severe, 02/10/18) levetiracetam (Unverified Allergy, Severe, Anaphylaxis, 02/10/18) rifampin (Unverified Allergy, Severe, 02/10/18) phenytoin (Unverified Allergy, Mild, Rash, 02/10/18) Past Medical History Seizure disorder Hypertension Hyperlipidemia Urinary incontinence Past Surgical History Multiple bilateral knee surgeries Back surgeries 2 shoulder surgeries Hysterectomy Reported Medications Depakene (Valproic Acid) 250 Mg Cap 250 Mg PO HS Valproic Acid 250 Mg Cap 500 Mg PO TID 30 Days Lisinopril 20 Mg Tab 20 Mg PO DAILY 30 Days Ezetimibe 10 Mg Tab 10 Mg PO DAILY Ditropan (Oxybutynin Chloride) 5 Mg Tab 5 Mg PO DAILY Montelukast (Montelukast Sodium) 10 Mg Tab 10 Mg PO HS Aspir-81 (Aspirin) 81 Mg Tabdr 81 Mg PO DAILY Levothyroxine (Levothyroxine Sodium) 75 Mcg Tab 75 Mcg PO DAILY Alendronate (Alendronate Sodium) 70 Mg Tab 70 Mg PO Q7D Lumigan Opth Drops (Bimatoprost) 0.01% Soln 1 Drop EACH EYE HS Active Ordered Medications See MAR Family History Unknown unobtainable secondary clinical condition the patient. Unlikely to be contributory to her acute illness Social History Unknown due to the clinical condition the patient. Physical Exam Vital Signs Vital Signs Date Time Temp Pulse Resp B/P (MAP) Pulse Ox O2 Delivery O2 Flow Rate FiO2 02/10/18 15:50 99 50 02/10/18 14:30 90 14 116/57 (76) 100 Ventilator 50 02/10/18 13:20 87 14 119/74 (89) 100 Ventilator 50 02/10/18 13:20 98 Ventilator 50 02/10/18 13:18 88 14 119/74 (89) 100 Ventilator 50 02/10/18 12:46 100 100 02/10/18 12:05 50 02/10/18 11:35 99.1 92 18 155/74 (101) 100 Ventilator 50 02/10/18 11:30 100 100 02/10/18 11:10 110 16 196/86 (122) 98 Physical Exam GENERAL: middle-aged female, lying in bed, obtunded, intubated HEENT: Normocephalic. Atraumatic. Pupils equal, round, reactive, conjugate. Mucous membranes are moist NECK: Trachea is midline. There is no JVD. CHEST: PRVC. intubated. equal chest rise. clear to auscultation CARDIOVASCULAR: normal rate, regular rhythm. sinus by tele. ABDOMEN: Soft, nontender, nondistended. No guarding. MUSCULOSKELETAL: Pulses 2+. No peripheral edema. NEUROLOGICAL: RASS -5. intermittent rhythmic quivering of the jaw. recently intubated, deeply sedated. Laboratory Laboratory Tests Test 02/10/18 11:41 02/10/18 12:30 02/10/18 14:00 White Blood Count 22.2 Red Blood Count 4.27 Hemoglobin 14.3 Hematocrit 43.4 Mean Corpuscular Volume 101.7 Mean Corpuscular Hemoglobin 33.5 Mean Corpuscular Hemoglobin Concent 32.9 Red Cell Distribution Width 15.9 Platelet Count 185 Mean Platelet Volume 8.8 Neutrophils (%) (Auto) 76.0 Lymphocytes (%) (Auto) 10.7 Monocytes (%) (Auto) 12.5 Eosinophils (%) (Auto) 0.0 Basophils (%) (Auto) 0.8 Neutrophils # (Auto) 16.9 Lymphocytes # (Auto) 2.4 Monocytes # (Auto) 2.8 Eosinophils # (Auto) 0.0 Basophils # (Auto) 0.2 CBC Comment AUTO DIFF Differential Total Cells Counted 100 Neutrophils % (Manual) 62 Band Neutrophils % 24 Lymphocytes % 5 Monocytes % 9 Neutrophils # (Manual) 19.1 Differential Comment FINAL DIFF MANUAL Platelet Estimate NORMAL Platelet Morphology Comment NORMAL Prothrombin Time 10.0 Prothromb Time International Ratio 1.0 Activated Partial Thromboplast Time 21.5 Urine Color YELLOW Urine Turbidity CLOUDY Urine pH 6.0 Urine Specific [place] 1.017 Urine Protein 300 Urine Glucose (UA) NEG Urine Ketones NEG Urine Occult Blood LARGE Urine Nitrite NEG Urine Bilirubin NEG Urine Urobilinogen LESS THAN 2.0 Urine Leukocyte Esterase LARGE Urine RBC Urine WBC Urine WBC Clumps MANY Urine Bacteria FEW Urine Mucus FEW Microscopic Urinalysis Comment CATH-CULTURE IND Blood Urea Nitrogen 19 Creatinine 0.83 Random Glucose 160 Total Protein 7.8 Albumin 3.4 Calcium Level 8.9 Alkaline Phosphatase 104 Aspartate Amino Transf (AST/SGOT) 36 Alanine Aminotransferase (ALT/SGPT) 13 Total Bilirubin 0.5 Sodium Level 139 Potassium Level 4.4 Chloride Level 107 Carbon Dioxide Level 23.4 Anion Gap 9 Estimat Glomerular Filtration Rate 68 Total Creatine Kinase 44 Troponin I LESS THAN 0.02 Thyroid Stimulating Hormone 3rd Gen 1.270 Valproic Acid (Depakene) Level 77 Lactic Acid Level 2.8 Blood Gas Puncture Site LT RADIAL Blood Gas Patient Temperature 98.6 Blood Gas HCO3 24 Blood Gas Base Excess 0.0 Blood Gas Oxygen Saturation 99 Arterial Blood pH 7.41 Arterial Blood Partial Pressure CO2 39 Arterial Blood Partial Pressure O2 395 Arterial Blood Oxygen Content 19.1 Arterial Blood Carboxyhemoglobin 0.8 Arterial Blood Methemoglobin 0.8 Blood Gas Hemoglobin 13.1 Oxygen Delivery Device VENTILATOR Blood Gas Ventilator Setting A/C 500/14/5PEEP Blood Gas Inspired Oxygen 100 Date/Time Source Procedure Growth Status 02/10/18 11:41 Urine Catheterized Urine Urine Culture Pending Received Result Diagram: 02/10/18 1141 02/10/18 1141 Imaging Last Impressions Head CT 02/10/18 1115 Signed Impressions: Service Date/Time: Saturday, February 10, 2018 12:19 - CONCLUSION: Stable negative noncontrast CT. Mustapha Grossman MD Chest X-Ray 02/10/181114 Signed Impressions: Service Date/Time: Saturday, February 10, 2018 11:34 - CONCLUSION: 1. Endotracheal tube in place. 2. Interval placement of nasogastric tube. 3. No acute cardiac pulmonary disease. MD Nory Motai VTE Risk Assessment Caprini VTE Risk Assessment: Mod/High Risk (score >= 2) Caprini Risk Assessment Model Point Value = 1 Point Value = 2 Point Value = 3 Point Value = 5 Age 41-60 Minor surgery BMI > 25 kg/m2 Swollen legs Varicose veins or History of unexplained or recurrent spontaneous Oral contraceptives or hormone replacement Sepsis (< 1 month) Serious lung disease, including pneumonia (< 1 month) Abnormal pulmonary function Acute myocardial infarction Congestive heart failure (< 1 month) History of inflammatory bowel disease Medical patient at bed rest Age 61-74 Arthroscopic surgery Major open surgery (> 45 min) Laparoscopic surgery (> 45 min) Malignancy Confined to bed (> 72 hours) Immobilizing plaster cast Central venous access Age >= 75 History of VTE Family history of VTE Factor V Leiden Prothrombin [id number] Lupus anticoagulant Anticardiolipin antibodies Elevated serum homocysteine Heparin-induced thrombocytopenia Other congenital or acquired thrombophilia Stroke (< 1 month) Elective arthroplasty Hip, pelvis, or leg fracture Acute spinal cord injury (< 1 month) Prophylaxis Regimen Total Risk Factor Score Risk Level Prophylaxis Regimen 0-1 Low Early ambulation 2 Moderate Order ONE of the following: *Sequential Compression Device (SCD) *Heparin 5000 units SQ BID 3-4 Higher Order ONE of the following medications: *Heparin 5000 units SQ TID *Enoxaparin/Lovenox 40 mg SQ daily (WT < 150 kg, CrCl > 30 mL/min) *Enoxaparin/Lovenox 30 mg SQ daily (WT < 150 kg, CrCl > 10-29 mL/min) *Enoxaparin/Lovenox 30 mg SQ BID (WT < 150 kg, CrCl > 30 mL/min) AND/OR *Sequential Compression Device (SCD) 5 or more Highest Order ONE of the following medications: *Heparin 5000 units SQ TID (Preferred with Epidurals) *Enoxaparin/Lovenox 40 mg SQ daily (WT < 150 kg, CrCl > 30 mL/min) *Enoxaparin/Lovenox 30 mg SQ daily (WT < 150 kg, CrCl > 10-29 mL/min) *Enoxaparin/Lovenox 30 mg SQ BID (WT < 150 kg, CrCl > 30 mL/min) AND *Sequential Compression Device (SCD) Assessment and Plan Assessment and Plan Assessment: 67yF with poorly controlled seizure disorder who presents in status epilepticus. remains critically ill. At Dr. Headley's request, will keep deeply sedated on versed drip and monitor EEG. add Vimpat to Valproic acid. frequent neuro checks. Active Problems: Acute encephalopathy Status Epilepticus Lactic acidosis- secondary to status Acute hypoxic and hypercarbic respiratory failure Plan: admit to ICU frequent neuro checks versed drip EEG neuro consult: Dr. Headley valproic acid vimpat nebs no weaning of mechanical ventilation until status improves wean fio2 for goal spo2 > 90% hob elevated vent bundle telemetry place sc[facility] OG tube and start tube feeds daily BMP ICU electrolyte protocol Lovenox SCDs pepcid piv's This patient remains critically ill with one or more organ systems which are or may become a threat to life. I have spent in excess of 44 minutes discontinuously in the care and management of this patient. This time is exclusive of procedures, and includes, but is not limited to, evaluation of the patient, review of the medical record, discussions with family, consultants, nursing staff, or respiratory therapy, and documentation in the medical record. Joseph Mei MD Feb 10, 2018 16:20
[2018-02-10] MEDS ORDERED: GADODIAMIDE PF 287 MG/ML 20 ML VIAL (for RAD MRI) IVCONTRAST ONE (16:41)
[2018-02-10] MEDS: INSULIN NovoLIN REGULAR SUPPLEMENTAL SCALE SQ SCH ×2 (18:00→23:20)
[2018-02-10] MEDS: LACOSAMIDE INJ 100 MG in SODIUM CHLORIDE 0.9% INJ 100 ML IV SCH (19:26)
[2018-02-10] MEDS: VALPROATE INJ 500 MG in SODIUM CHLORIDE 0.9% INJ 100 ML IV SCH (19:30)
[2018-02-10] MEDS: CHLORHEXIDINE 0.12% (ORAL KIT) 15 ML CUP MT SCH (21:05)
[2018-02-10] MEDS: DOCUSATE SODIUM 50 MG/SENNA 8.6 MG TAB PO SCH (21:05)
[2018-02-10] MEDS: FAMOTIDINE 20 MG TAB PO SCH (21:05)
[2018-02-10] MEDS: ACETAMINOPHEN 325 MG TAB PO PRN (21:06)
[2018-02-11] VITALS (17 sets, daily range): BP systolic 91–155; BP diastolic 51–67; PULSE 101–124; RESP 15–19; TEMP 97.2–101.4; O2SAT 98–100
[2018-02-11] MEDS: LACOSAMIDE INJ 100 MG in SODIUM CHLORIDE 0.9% INJ 100 ML IV SCH ×4 (01:39→23:46)
[2018-02-11] MEDS: VALPROATE INJ 500 MG in SODIUM CHLORIDE 0.9% INJ 100 ML IV SCH ×4 (02:36→20:52)
[2018-02-11] MEDS: RESP: ALBUTEROL 2.5 MG/IPRATROPIUM 0.5 MG NEB (SCH) INH ×4 (03:45→20:39)
[2018-02-11] MEDS: CHLORHEXIDINE GLUCONATE 2 % 1 PACK (2 CLOTHS) TOP SCH (03:51)
[2018-02-11] MEDS: INSULIN NovoLIN REGULAR SUPPLEMENTAL SCALE SQ SCH ×4 (05:17→23:47)
[2018-02-11] MEDS: CHLORHEXIDINE 0.12% (ORAL KIT) 15 ML CUP MT SCH ×2 (07:42→20:52)
[2018-02-11] MEDS: DOCUSATE SODIUM 50 MG/SENNA 8.6 MG TAB PO SCH ×2 (07:42→20:52)
[2018-02-11] MEDS: FAMOTIDINE 20 MG TAB PO SCH ×2 (07:42→20:52)
[2018-02-11] MEDS: SODIUM CHLOR 0.9% 1000 ML INJ 1,000 ML IV SCH ×2 (08:16→20:53)
--- NOTE | 2018-02-11 09:42 | RADRPT ---
EXAM DATE/TIME: 02/10/2018 16:30 [place] COMPARISON: MRI BRAIN W/O CONTRAST, November 09, 2017, 12:08. CT BRAIN W/O CONTRAST, February 10, 2018, 12:19. INDICATIONS : Right facial droop. Alternative mental status and possible seizure. CONTRAST: 16 cc Omniscan (gadodiamide) IV MEDICAL HISTORY : Seizures. Hypertension. Arthritis. SURGICAL HISTORY : Hysterectomy. section. Wells rods. Bilateral knee replacements. ENCOUNTER: Initial ACUITY: 1 day PAIN SCORE: 0/10 LOCATION: cranial TECHNIQUE: Multiplanar, multisequence MRI of the brain was performed both prior to and following the administrat ion of paramagnetic contrast. FINDINGS: CEREBRUM: There's moderate atrophic change with sulcal prominence. The ventricular system remains stable but di ffusely prominent. No evidence of midline shift, mass lesion, hemorrhage or acute infarction. No ext raaxial fluid collections are seen. The pituitary gland and suprasellar cistern are normal in config uration. WHITE MATTER: No significant signal abnormalities are seen in the white matter. POSTERIOR FOSSA: The cerebellum and brainstem are intact. The 4th ventricle is midline. The cerebellopontine angle is unremarkable. The cerebellar tonsils are normal in position. DIFFUSION IMAGING: No focal areas of restricted diffusion are seen. No evidence of acute infarction. EXTRACRANIAL: The visualized portions of the orbits and paranasal sinuses are unremarkable. POST-CONTRAST: No abnormal areas of parenchymal or dural enhancement. No evidence of blood-brain barrier breakdown. CONCLUSION: 1. Stable appearance with no acute hemorrhage, mass or infarction. 2. Moderate atrophic change and stable mild ventricular prominence. Mustapha Grossman MD on February 11, 2018 at 9:37 Board Certified Radiologist. This report was verified electronically.
--- NOTE | 2018-02-11 09:50 | HHI.CCPN ---
Subjective Remarks/Hospital Course This is a 67-year-old female with a history of poorly controlled seizures who presents with acute altered mental status. She was last seen normal at 3 AM this morning. Initially she was considered to be a stroke alert, however CT noncontrasted brain was negative and her nonfocal appearance was much more suggestive of seizures and stroke, along with the fact that her last seen normal time was significantly delayed. Stat EEG was ordered and she was found to be in status epilepticus. She was emergently intubated due to her poor mental status. I was called immediately down to the bedside for the EEG demonstrating status. At the bedside, I pushed 10 mg of Versed IV 1 and started her on a Versed drip at 10 mg an hour. No information is available from the patient due to her mental status. ROS is unobtainable. The majority of the information I have is obtained from medical record, and in specifically the H&P documented by Dr. Guerra back in October 2017, which is very helpful. In reading through her chart, it appears that when she comes off her Topamax, she goes into status. It appears that she has recently come off Topamax again due to side effects. She is anaphylactically allergic to Keppra and phenytoin, so these are not available to us to use. Versed drip was used successfully in her last admission October 2017, so that is what we have chosen. I have spoken with Dr. Headley who is not only an on-call neurologist but her personal neurologist who sees her frequently, and he agrees with this plan. He also thinks that Vimpat is a good option for seizure control, which I agree with. We will plan to load her with that. 02/11/18: Remains encephalopathy on the vent. No spontaneous movement noted when Versed is held. Will get a repeat EEG today. Wean sedation only if seizure controlled Objective Vital Signs Date Time Temp Pulse Resp B/P (MAP) Pulse Ox O2 Delivery O2 Flow Rate FiO2 02/11/18 09:13 99 40 02/11/18 06:00 102 02/11/18 04:00 97.2 18 109/67 (81) 02/10/18 16:06 Ventilator Intake and Output 02/11/18 02/11/18 02/12/18 08:00 16:00 00:00 Intake Total 262 ml 1000 ml Output Total 425 ml Balance -163 ml 1000 ml Result Diagram: 02/10/18 1141 02/10/18 1141 Other Results Laboratory Tests Test 02/10/18 14:00 Blood Gas Puncture Site LT RADIAL Blood Gas Patient Temperature 98.6 Blood Gas HCO3 24 mmol/L (22-26) Blood Gas Base Excess 0.0 mmol/L (-2-2) Blood Gas Oxygen Saturation 99 % (90-100) Arterial Blood pH 7.41 (7.380-7.420) Arterial Blood Partial Pressure CO2 39 mmHg (38-42) Arterial Blood Partial Pressure O2 395 mmHG (61-120) Arterial Blood Oxygen Content 19.1 Vol % (12.0-20.0) Arterial Blood Carboxyhemoglobin 0.8 % (0-4) Arterial Blood Methemoglobin 0.8 % (0-2) Blood Gas Hemoglobin 13.1 G/DL (12.0-16.0) Oxygen Delivery Device VENTILATOR Blood Gas Ventilator Setting A/C 500/14/5PEEP Blood Gas Inspired Oxygen 100 % Imaging Last Impressions Head CT 02/10/18 1115 Signed Impressions: Service Date/Time: Saturday, February 10, 2018 12:19 - CONCLUSION: Stable negative noncontrast CT. Mustapha Grossman MD Chest X-Ray 02/10/18 1115 Signed Impressions: Service Date/Time: Saturday, February 10, 2018 11:34 - CONCLUSION: 1. Endotracheal tube in place. 2. Interval placement of nasogastric tube. 3. No acute cardiac pulmonary disease. Mustapha Grossman MD Objective Remarks GENERAL: middle-aged female, lying in bed, obtunded, intubated HEENT: Normocephalic. Atraumatic. Pupils equal, round, reactive, conjugate. Mucous membranes are moist NECK: Trachea is midline. There is no JVD. CHEST: PRVC. intubated. equal chest rise. clear to auscultation CARDIOVASCULAR: normal rate, regular rhythm. sinus by tele. ABDOMEN: Soft, nontender, nondistended. No guarding. MUSCULOSKELETAL: Pulses 2+. No peripheral edema. NEUROLOGICAL: Intubated sedated with Versed. JAIR. Withdrawals upper and lower extremities to painful stimuli. No spontaneous eye opening or movements of extremities noted A/P Assessment and Plan Assessment: 67yF with poorly controlled seizure disorder who presents in status epilepticus. remains critically ill. At Dr. Headley's request, keep deeply sedated on versed drip and monitor EEG. Continue Vimpat and Valproic acid. frequent neuro checks. Repeat EEG today Active Problems: Acute encephalopathy Status Epilepticus Lactic acidosis- secondary to status Acute hypoxic and hypercarbic respiratory failure Plan: Continue ICU care frequent neuro checks versed drip, no weaning until EEG shows resolution of seizures, and okd by Dr. Headley EEG repeat today Continue valproic acid, Vimpat nebs no weaning of mechanical ventilation until status improves wean fio2 for goal spo2 > 90% hob elevated vent bundle telemetry Continue [place] OG tube and tube feeds daily BMP ICU electrolyte protocol. Keep Mag>2 Lovenox SCDs Pepcid piv's This patient remains critically ill with one or more organ systems which are or may become a threat to life. I have spent in excess of 32 minutes discontinuously in the care and management of this patient. This time is exclusive of procedures, and includes, but is not limited to, evaluation of the patient, review of the medical record, discussions with family, consultants, nursing staff, or respiratory therapy, and documentation in the medical record. Murali Baum MD Feb 11, 2018 09:50
[2018-02-11 10:48] LABS: BICARBONATE 22.6 MEQ/L (21.0-32.0); CALCIUM 8.5 MG/DL (8.5-10.1); CREATININE 1.54 MG/DL (0.50-1.00)
--- NOTE | 2018-02-11 12:21 | EKG ---
Date Performed: 02/10/2018 Time Performed: 11:14:40 PTAGE: 67 years EKG: SINUS TACHYCARDIA POSSIBLE LEFT ATRIAL ENLARGEMENT NONSPECIFIC ST & T-WAVE ABNORMALITY ABNO RMAL RHYTHM ECG PREVIOUS TRACING 11/08/2017 19:52.27Since the previous tracing, no significant change noted DOCTOR: Inder Workman Interpretating Date/Time 02/11/2018 12:16:49
[2018-02-11] MEDS: cefTRIAXone INJ 1,000 MG in SODIUM CHLORIDE 0.9% INJ 100 ML IV SCH (13:04)
[2018-02-11 14:45] LABS: HEMATOCRIT 34.9 % (35.0-46.0); HEMOGLOBIN 11.7 GM/DL (11.6-15.3); MEAN CORPUSCULAR HEMOGLOBIN 34.2 PG (27.0-34.0); MEAN CORPUSCULAR HGB CONC 33.6 % (32.0-36.0); MEAN PLATELET VOLUME 10.3 FL (7.0-11.0); PLATELET COUNT 137 TH/MM3 (150-450); RED BLOOD COUNT 3.42 MIL/MM3 (4.00-5.30); RED CELL DISTRIBUTION WIDTH 16.5 % (11.6-17.2); WHITE BLOOD COUNT 15.7 TH/MM3 (4.0-11.0)
[2018-02-11] MEDS: MIDAZOLAM 100 MG/100 ML INJ 100 ML IV PRN (14:47)
[2018-02-11] MEDS: ENOXAPARIN SODIUM 40 MG/0.4 ML SYRINGE SQ SCH (14:48)
[2018-02-11] MEDS ORDERED: LORazepam 2 MG/ML VIAL ONE (14:51)
[2018-02-11] MEDS ORDERED: PROPOFOL 500 MG/50 ML INJ 50 ML ONE (14:52)
[2018-02-11] MEDS ORDERED: RASS Change Order XX ONE (15:00)
--- NOTE | 2018-02-11 15:20 | HHI.PR ---
Review/Management Diagnosis status epilepticus--resolved on versed and propofol Plan continue current anticonvulsants. attempt to wean sedation tomorrow. Consider phenobarbital if unable to wean Diagnosis/Plan: Subjective Subjective Comments patient developed recurrent epileptiform discharges on continuous EEG when versed was decreased. Now on versed 10 mg/hr and propofol with resolution of the epileptiform activity Active Medications Current Medications Medications (Trade) Dose Ordered Sig/Tiera Route Start Time Stop Time Status Last Admin (NS Flush) 2 ml UNSCH PRN IV FLUSH 02/10/18 11:15 Ceftriaxone Sodium 1000 mg/ Sodium Chloride 100 ml @ 200 mls/hr Q24H IV 02/11/18 12:00 02/11/18 13:04 Potassium Chloride 100 ml @ 25 mls/hr Q2H PRN IV 02/10/18 13:15 Potassium Chloride 100 ml @ 50 mls/hr Q2H PRN IV 02/10/18 13:15 (K-Lyte Cl Eff) 50 meq UNSCH PRN PO 02/10/18 13:15 Potassium Chloride 100 ml @ 25 mls/hr UNSCH PRN IV 02/10/18 13:15 Potassium Chloride 100 ml @ 50 mls/hr Q2H PRN IV 02/10/18 13:15 Magnesium Sulfate 4 gm/Sodium Chloride 100 ml @ 50 mls/hr UNSCH PRN IV 02/10/18 13:15 (Mag-Ox) 800 mg UNSCH PRN PO 02/10/18 13:15 Magnesium Sulfate 2 gm/Sodium Chloride 100 ml @ 50 mls/hr UNSCH PRN IV 02/10/18 13:15 (K-Phos) 2,000 mg Q4H PRN PO 02/10/18 13:15 Sodium Phosphate 30 mmol/Sodium Chloride 250 ml @ 42 mls/hr UNSCH PRN IV 02/10/18 13:15 (K-Phos) 2,000 mg UNSCH PRN PO/TUBE 02/10/18 13:15 Potassium Phosphate 30 mmol/ Sodium Chloride 260 ml @ 42 mls/hr UNSCH PRN IV 02/10/18 13:15 (Peridex 0.12% Liq) 15 ml BID@08,20 MT 02/10/18 20:00 02/11/18 07:42 (D50w (Vial) Inj) 25 ml UNSCH PRN IV PUSH 02/10/18 13:15 (NovoLIN R SUPPLEMENTAL SCALE) 1 Q6HR SQ 02/10/18 18:00 02/11/18 12:00 (Duoneb Neb) 1 ampule Q6HR NEB INH 02/10/18 16:00 02/11/18 14:26 (Duoneb Neb) 1 ampule Q2HR NEB PRN INH 02/10/18 13:15 Sodium Chloride 1,000 ml @ 84 mls/hr [id number] IV 02/10/18 14:15 02/11/18 08:16 (Pepcid) 20 mg Q12HR PO 02/10/18 21:00 02/11/18 07:42 (Zofran Inj) 4 mg Q6H PRN IV PUSH 02/10/18 13:15 (Lovenox Inj) 40 mg Q24H SQ 02/10/18 14:00 02/11/18 14:48 Miscellaneous Information 1 [id number] XX 02/10/18 13:15 02/10/18 13:15 (Chlorhexidine 2% Cloth) 3 pack Taper DAILY@04 TOP 02/11/18 04:00 02/07/19 03:59 02/11/18 03:51 (Chlorhexidine 2% Cloth) 3 pack UNSCH PRN TOP 02/10/18 13:15 (Anahi-Colace) 1 tab BID PO 02/10/18 21:00 02/11/18 07:42 (Milk Of Magnesia Liq) 30 ml Q12H PRN PO 02/10/18 13:15 (Senokot) 17.2 mg Q12H PRN PO 02/10/18 13:15 (Dulcolax Supp) 10 mg DAILY PRN RECTAL 02/10/18 13:15 (Lactulose Liq) 30 ml DAILY PRN PO 02/10/18 13:15 Midazolam HCl 100 ml @ 2 mls/hr TITRATE PRN IV 02/10/18 14:15 02/11/18 14:47 Lacosamide 100 mg/ Sodium Chloride 110 ml @ 110 mls/hr Q8H IV 02/10/18 16:00 02/11/18 07:42 Valproate Sodium 500 mg/Sodium Chloride 105 ml @ 105 mls/hr Q6H IV 02/10/18 19:30 02/11/18 13:47 (Tylenol) 650 mg Q4H PRN PO 02/10/18 21:00 02/10/18 21:06 (Ativan Inj) 2 mg Q1H PRN IV PUSH 02/11/18 15:00 Propofol 100 ml @ 2.535 mls/ hr TITRATE PRN IV 02/11/18 15:00 Allergies Allergies Coded Allergies fluconazole (Unverified Allergy, Severe, 02/10/18) hydromorphone (Unverified Allergy, Severe, 02/10/18) levetiracetam (Unverified Allergy, Severe, Anaphylaxis, 02/10/18) rifampin (Unverified Allergy, Severe, 02/10/18) phenytoin (Unverified Allergy, Mild, Rash, 02/10/18) Exam I&O / VS 02/11/18 02/11/18 02/12/18 15:00 23:00 07:00 Intake Total 1000 ml Balance 1000 ml IV Total 1000 ml Vital Signs Date Time Temp Pulse Resp B/P (MAP) Pulse Ox O2 Delivery O2 Flow Rate FiO2 02/11/18 12:09 98 40 02/11/18 12:00 104 02/11/18 12:00 40 02/11/18 12:00 98.1 104 19 155/67 (96) 100 02/11/18 10:00 102 02/11/18 09:13 99 40 02/11/18 08:00 40 02/11/18 08:00 98.0 101 15 119/58 (78) 98 02/11/18 08:00 101 02/11/18 06:00 102 02/11/18 04:00 40 02/11/18 04:00 106 02/11/18 04:00 97.2 106 18 109/67 (81) 100 02/11/18 03:45 100 40 02/11/18 02:00 101 02/11/18 00:00 108 02/11/18 00:00 99.9 108 17 91/51 (64) 98 02/11/18 00:00 40 02/10/18 23:48 99 40 02/10/18 22:00 117 02/10/18 20:08 100 40 02/10/18 20:00 121 02/10/18 20:00 40 02/10/18 20:00 103.2 121 15 141/61 (87) 100 02/10/18 17:17 99 50 02/10/18 17:00 102.1 126 18 157/65 (95) 99 02/10/18 16:06 90 18 114/74 (87) 100 Ventilator 50 02/10/18 15:50 99 50 Exam Comments sedated, nonresponseve No tonic clonic activity No focal deficit Objective Micro and Labs Laboratory Tests Test 02/10/18 16:00 02/10/18 17:08 02/11/18 10:10 02/11/18 14:20 Lactic Acid Level 3.4 Nasal Screen MRSA (PCR) MRSA NOT DETECTED Blood Urea Nitrogen 29 Creatinine 1.54 Random Glucose 134 Calcium Level 8.5 Sodium Level 140 Potassium Level 3.7 Chloride Level 108 Carbon Dioxide Level 22.6 Anion Gap 9 Estimat Glomerular Filtration Rate 34 Magnesium Level 1.9 Valproic Acid (Depakene) Level 84 White Blood Count 15.7 Red Blood Count 3.42 Hemoglobin 11.7 Hematocrit 34.9 Mean Corpuscular Volume 102.0 Mean Corpuscular Hemoglobin 34.2 Mean Corpuscular Hemoglobin Concent 33.6 Red Cell Distribution Width 16.5 Platelet Count 137 Mean Platelet Volume 10.3 Date/Time Source Procedure Growth Status 02/10/18 11:41 Urine Catheterized Urine Urine Culture - Preliminary Gram Negative Vu Resulted Loy Headley MD PhD Feb 11, 2018 15:20
[2018-02-11] MEDS: PROPOFOL 1000 MG/100 ML INJ 100 ML IV PRN ×3 (15:35→20:53)
[2018-02-11] MEDS: ACETAMINOPHEN 325 MG TAB PO PRN ×2 (16:32→23:46)
--- NOTE | 2018-02-11 19:29 | MG ---
cc: Loy Headley MD, PhD TEST NUMBER: [id number] TECHNIQUE: A 17-channel EEG. DESCRIPTION: The background rhythm reveals a generalized theta rhythm at roughly 6 Hz. At times, there is a delta rhythm as well. Sleep spindles are present also. I do not see any epileptiform discharges or lateralizing features. INTERPRETATION: Overall, appears to be normal sleep electroencephalogram. No epileptiform discharges are seen. There is no evidence for any ongoing seizure activity. Loy Headley MD, PhD FERMIN/ANAMARIA , 07:19 PM , 07:28 PM
[2018-02-12] VITALS (20 sets, daily range): BP systolic 98–199; BP diastolic 47–78; PULSE 84–135; RESP 16–24; TEMP 97.3–101.8; O2SAT 97–100
[2018-02-12] MEDS ORDERED: LABETALOL HCL 100 MG/20 ML VIAL IV PUSH ONE (00:15)
[2018-02-12] MEDS: VALPROATE INJ 500 MG in SODIUM CHLORIDE 0.9% INJ 100 ML IV SCH ×4 (02:16→19:00)
[2018-02-12] MEDS: PROPOFOL 1000 MG/100 ML INJ 100 ML IV PRN ×3 (02:17→19:00)
[2018-02-12] MEDS: MIDAZOLAM 100 MG/100 ML INJ 100 ML IV PRN ×2 (02:17→11:47)
[2018-02-12] MEDS: RESP: ALBUTEROL 2.5 MG/IPRATROPIUM 0.5 MG NEB (SCH) INH ×4 (03:14→20:00)
[2018-02-12] MEDS: CHLORHEXIDINE GLUCONATE 2 % 1 PACK (2 CLOTHS) TOP SCH (04:00)
[2018-02-12] MEDS: INSULIN NovoLIN REGULAR SUPPLEMENTAL SCALE SQ SCH ×4 (05:50→23:23)
[2018-02-12 06:50] LABS: HEMATOCRIT 32.2 % (35.0-46.0); HEMOGLOBIN 10.5 GM/DL (11.6-15.3); MEAN CELL VOLUME 103.3 FL (80.0-100.0); MEAN CORPUSCULAR HEMOGLOBIN 33.7 PG (27.0-34.0); MEAN CORPUSCULAR HGB CONC 32.6 % (32.0-36.0); MEAN PLATELET VOLUME 9.1 FL (7.0-11.0); PLATELET COUNT 94 TH/MM3 (150-450); RED BLOOD COUNT 3.12 MIL/MM3 (4.00-5.30); RED CELL DISTRIBUTION WIDTH 16.3 % (11.6-17.2); WHITE BLOOD COUNT 6.2 TH/MM3 (4.0-11.0)
[2018-02-12 07:12] LABS: BICARBONATE 24.1 MEQ/L (21.0-32.0); CALCIUM 8.8 MG/DL (8.5-10.1); CREATININE 1.39 MG/DL (0.50-1.00)
[2018-02-12] MEDS: SODIUM CHLOR 0.9% 1000 ML INJ 1,000 ML IV SCH ×2 (08:44→19:31)
[2018-02-12] MEDS: DOCUSATE SODIUM 50 MG/SENNA 8.6 MG TAB PO SCH ×2 (08:45→20:12)
[2018-02-12] MEDS: LACOSAMIDE INJ 100 MG in SODIUM CHLORIDE 0.9% INJ 100 ML IV SCH ×3 (08:46→23:22)
[2018-02-12] MEDS: CHLORHEXIDINE 0.12% (ORAL KIT) 15 ML CUP MT SCH ×2 (08:47→20:00)
[2018-02-12] MEDS: FAMOTIDINE 20 MG TAB PO SCH ×2 (09:37→20:12)
[2018-02-12] MEDS: POTASSIUM CHLORIDE 25 MEQ EFFERVESCENT TAB PO PRN (09:38)
[2018-02-12] MEDS: cefTRIAXone INJ 1,000 MG in SODIUM CHLORIDE 0.9% INJ 100 ML IV SCH (11:46)
--- NOTE | 2018-02-12 13:30 | HHI.CCPN ---
Subjective Remarks/Hospital Course This is a 67-year-old female with a history of poorly controlled seizures who presents with acute altered mental status. She was last seen normal at 3 AM this morning. Initially she was considered to be a stroke alert, however CT noncontrasted brain was negative and her nonfocal appearance was much more suggestive of seizures and stroke, along with the fact that her last seen normal time was significantly delayed. Stat EEG was ordered and she was found to be in status epilepticus. She was emergently intubated due to her poor mental status. I was called immediately down to the bedside for the EEG demonstrating status. At the bedside, I pushed 10 mg of Versed IV 1 and started her on a Versed drip at 10 mg an hour. No information is available from the patient due to her mental status. ROS is unobtainable. The majority of the information I have is obtained from medical record, and in specifically the H&P documented by Dr. Guerra back in October 2017, which is very helpful. In reading through her chart, it appears that when she comes off her Topamax, she goes into status. It appears that she has recently come off Topamax again due to side effects. She is anaphylactically allergic to Keppra and phenytoin, so these are not available to us to use. Versed drip was used successfully in her last admission October 2017, so that is what we have chosen. I have spoken with Dr. Headley who is not only an on-call neurologist but her personal neurologist who sees her frequently, and he agrees with this plan. He also thinks that Vimpat is a good option for seizure control, which I agree with. We will plan to load her with that. 02/11/18: Remains encephalopathy on the vent. No spontaneous movement noted when Versed is held. Will get a repeat EEG today. Wean sedation only if seizure controlled 02/12: Calm now, no convulsive activity. EEG result pending. Midazolam at 10. Objective Vital Signs Date Time Temp Pulse Resp B/P (MAP) Pulse Ox O2 Delivery O2 Flow Rate FiO2 02/12/18 12:01 99 40 02/12/18 10:00 93 02/12/18 08:00 99.6 17 98/47 (64) 02/10/18 16:06 Ventilator Intake and Output 02/12/18 02/12/18 02/13/18 08:00 16:00 00:00 Intake Total 1090 ml Output Total 650 ml Balance 440 ml Result Diagram: 02/12/18 0513 02/12/18 0513 Other Results Microbiology Date/Time Source Procedure Growth Status 02/10/18 11:41 Urine Catheterized Urine Urine Culture - Final Escherichia Coli Complete Imaging Last Impressions Head CT 02/10/18 1115 Signed Impressions: Service Date/Time: Saturday, February 10, 2018 12:19 - CONCLUSION: Stable negative noncontrast CT. Mustapha Grossman MD Chest X-Ray 02/10/18 1115 Signed Impressions: Service Date/Time: Saturday, February 10, 2018 11:34 - CONCLUSION: 1. Endotracheal tube in place. 2. Interval placement of nasogastric tube. 3. No acute cardiac pulmonary disease. Mustapha Grossman MD Objective Remarks GENERAL: middle-aged female, lying in bed, obtunded, intubated HEENT: Normocephalic. Atraumatic. Pupils 2mm, equal, round, reactive, conjugate. Mucous membranes are moist. NECK: Trachea is midline. Orally intubated. CHEST: PRVC. equal chest rise. clear to auscultation, no wheezes. CARDIOVASCULAR: normal rate, regular rhythm. sinus by tele. ABDOMEN: Soft, nontender, nondistended. No guarding. BS active. MUSCULOSKELETAL: Pulses 2+. No peripheral edema. NEUROLOGICAL: Intubated sedated with Versed. JAIR.No withdrawal while on versed and propofol. No spontaneous eye opening or movements of extremities noted A/P Assessment and Plan Assessment: 67yF with poorly controlled seizure disorder who presents in status epilepticus. remains critically ill. At Dr. Headley's request, keep deeply sedated on versed drip and monitor EEG. Continue Vimpat and Valproic acid. frequent neuro checks. Repeat EEG today Active Problems: Acute encephalopathy Status Epilepticus Lactic acidosis- secondary to status Acute hypoxic and hypercarbic respiratory failure Plan: Continue ICU care frequent neuro checks versed drip, no weaning until EEG shows resolution of seizures, and ok'd by Dr. Headley EEG repeat today Continue valproic acid, Vimpat nebs no weaning of mechanical ventilation until status improves wean fio2 for goal spo2 > 90% hob elevated vent bundle telemetry Continue Ardon OG tube and tube feeds daily BMP ICU electrolyte protocol. Keep Mag>2 Lovenox SCDs Pepcid piv's Lower versed for EEG. This patient remains critically ill with one or more organ systems which are or may become a threat to life. I have spent in excess of 35 minutes discontinuously in the care and management of this patient. This time is exclusive of procedures, and includes, but is not limited to, evaluation of the patient, review of the medical record, discussions with family, consultants, nursing staff, or respiratory therapy, and documentation in the medical record. Topher Truong MD Feb 12, 2018 13:30
[2018-02-12] MEDS: ENOXAPARIN SODIUM 40 MG/0.4 ML SYRINGE SQ SCH (13:57)
--- NOTE | 2018-02-12 18:45 | CE ---
cc: Inder Kathleen MD TEXT NUMBER: [id number] Hyperventilation not performed. EEG from yesterday was negative. Stroke alert, unable to arouse, seizure disorder, Depakote. Recording shows diffuse, what appear to be, spindle-like activity with some theta waves seen. Recording at times looks a little bit not synchronized. Other times, it is quite synchronous and symmetric, but sometimes not synchronized such as at epoch 38. I do not see any major hemisphere asymmetry. Some small sharps are seen but are symmetric in the posterior head regions at epoch 74. They actually seem to phase reverse over the midline head region, could be a sleep variant. No prolonged seizure activity is seen. Photic stimulation is performed without significant posterior driving. IMPRESSION: Some normal sleep activity, just 1 episode of some small sharps seen bioccipitally, could be a sleep variant. No focal abnormality was noted. No seizure activity is seen. At times, some slight dyssynchrony is seen in the background, could be medication effect. Clinical correlation is needed. MD ANA MARIA Cr/ANAMARIA , 05:51 PM , 06:44 PM
--- NOTE | 2018-02-12 20:55 | HHI.PR ---
Review/Management Diagnosis status epilepticus--resolved on versed and propofol Plan continue current anticonvulsants. EEG at this time is stable without epileptiform discharges. May attempt to wean sedation monitoring EEG telemetry. Diagnosis/Plan: Subjective Subjective Comments No acute events reported No clinical sz Active Medications Current Medications Medications (Trade) Dose Ordered Sig/Tiera Route Start Time Stop Time Status Last Admin (NS Flush) 2 ml UNSCH PRN IV FLUSH 02/10/18 11:15 Ceftriaxone Sodium 1000 mg/ Sodium Chloride 100 ml @ 200 mls/hr Q24H IV 02/11/18 12:00 02/12/18 11:46 Potassium Chloride 100 ml @ 25 mls/hr Q2H PRN IV 02/10/18 13:15 Potassium Chloride 100 ml @ 50 mls/hr Q2H PRN IV 02/10/18 13:15 (K-Lyte Cl Eff) 50 meq UNSCH PRN PO 02/10/18 13:15 02/12/18 09:38 Potassium Chloride 100 ml @ 25 mls/hr UNSCH PRN IV 02/10/18 13:15 Potassium Chloride 100 ml @ 50 mls/hr Q2H PRN IV 02/10/18 13:15 Magnesium Sulfate 4 gm/Sodium Chloride 100 ml @ 50 mls/hr UNSCH PRN IV 02/10/18 13:15 (Mag-Ox) 800 mg UNSCH PRN PO 02/10/18 13:15 Magnesium Sulfate 2 gm/Sodium Chloride 100 ml @ 50 mls/hr UNSCH PRN IV 02/10/18 13:15 (K-Phos) 2,000 mg Q4H PRN PO 02/10/18 13:15 Sodium Phosphate 30 mmol/Sodium Chloride 250 ml @ 42 mls/hr UNSCH PRN IV 02/10/18 13:15 (K-Phos) 2,000 mg UNSCH PRN PO/TUBE 02/10/18 13:15 Potassium Phosphate 30 mmol/ Sodium Chloride 260 ml @ 42 mls/hr UNSCH PRN IV 02/10/18 13:15 (Peridex 0.12% Liq) 15 ml BID@08,20 MT 02/10/18 20:00 02/12/18 20:00 (D50w (Vial) Inj) 25 ml UNSCH PRN IV PUSH 02/10/18 13:15 (NovoLIN R SUPPLEMENTAL SCALE) 1 Q6HR SQ 02/10/18 18:00 02/12/18 17:18 (Duoneb Neb) 1 ampule Q6HR NEB INH 02/10/18 16:00 02/12/18 20:00 (Duoneb Neb) 1 ampule Q2HR NEB PRN INH 02/10/18 13:15 Sodium Chloride 1,000 ml @ 100 mls/hr Q10H IV 02/10/18 14:15 02/12/18 19:31 (Pepcid) 20 mg Q12HR PO 02/10/18 21:00 02/12/18 20:12 (Zofran Inj) 4 mg Q6H PRN IV PUSH 02/10/18 13:15 (Lovenox Inj) 40 mg Q24H SQ 02/10/18 14:00 02/12/18 13:57 Miscellaneous Information 1 Q361D XX 02/10/18 13:15 02/10/18 13:15 (Chlorhexidine 2% Cloth) 3 pack Taper DAILY@04 TOP 02/11/18 04:00 02/07/19 03:59 02/12/18 04:00 (Chlorhexidine 2% Cloth) 3 pack UNSCH PRN TOP 02/10/18 13:15 (Anahi-Colace) 1 tab BID PO 02/10/18 21:00 02/12/18 08:45 (Milk Of Magnesia Liq) 30 ml Q12H PRN PO 02/10/18 13:15 (Senokot) 17.2 mg Q12H PRN PO 02/10/18 13:15 (Dulcolax Supp) 10 mg DAILY PRN RECTAL 02/10/18 13:15 (Lactulose Liq) 30 ml DAILY PRN PO 02/10/18 13:15 Midazolam HCl 100 ml @ 2 mls/hr TITRATE PRN IV 02/10/18 14:15 02/12/18 11:47 Lacosamide 100 mg/ Sodium Chloride 110 ml @ 110 mls/hr Q8H IV 02/10/18 16:00 02/12/18 17:02 Valproate Sodium 500 mg/Sodium Chloride 105 ml @ 105 mls/hr Q6H IV 02/10/18 19:30 02/12/18 19:00 (Tylenol) 650 mg Q4H PRN PO 02/10/18 21:00 02/11/18 23:46 (Ativan Inj) 2 mg Q1H PRN IV PUSH 02/11/18 15:00 Propofol 100 ml @ 2.535 mls/ hr TITRATE PRN IV 02/11/18 15:00 02/12/18 19:00 (Trandate Inj) 10 mg Q4H PRN IV PUSH 02/12/18 00:15 Allergies Allergies Coded Allergies fluconazole (Unverified Allergy, Severe, 02/10/18) hydromorphone (Unverified Allergy, Severe, 02/10/18) levetiracetam (Unverified Allergy, Severe, Anaphylaxis, 02/10/18) rifampin (Unverified Allergy, Severe, 02/10/18) phenytoin (Unverified Allergy, Mild, Rash, 02/10/18) Exam I&O / VS 02/12/18 02/12/18 02/13/18 15:00 23:00 07:00 Intake Total 795 ml Output Total 685 ml Balance 110 ml Tube Feeding 675 ml Other 120 ml Output Urine Total 685 ml Vital Signs Date Time Temp Pulse Resp B/P (MAP) Pulse Ox O2 Delivery O2 Flow Rate FiO2 02/12/18 20:00 100 40 02/12/18 19:00 93 02/12/18 18:00 84 02/12/18 17:00 87 02/12/18 16:12 98 40 02/12/18 16:00 40 02/12/18 16:00 98.1 91 18 108/54 (72) 98 02/12/18 16:00 91 02/12/18 15:00 91 02/12/18 14:00 92 02/12/18 12:01 99 40 02/12/18 12:00 92 02/12/18 12:00 40 02/12/18 12:00 99.2 92 18 116/57 (76) 99 02/12/18 10:00 93 02/12/18 08:01 97 40 02/12/18 08:00 90 02/12/18 08:00 99.6 90 17 98/47 (64) 97 02/12/18 08:00 40 02/12/18 06:00 91 02/12/18 04:06 100 40 02/12/18 04:00 97.3 93 24 103/59 (74) 100 02/12/18 04:00 40 02/12/18 04:00 93 02/12/18 02:00 96 02/12/18 01:06 99 40 02/12/18 00:00 135 02/12/18 00:00 101.8 135 20 199/78 (118) 100 02/12/18 00:00 40 02/11/18 22:00 119 Exam Comments sedated, nonresponseve No tonic clonic activity No focal deficit Objective Micro and Labs Laboratory Tests Test 02/12/18 05:13 White Blood Count 6.2 Red Blood Count 3.12 Hemoglobin 10.5 Hematocrit 32.2 Mean Corpuscular Volume 103.3 Mean Corpuscular Hemoglobin 33.7 Mean Corpuscular Hemoglobin Concent 32.6 Red Cell Distribution Width 16.3 Platelet Count 94 Mean Platelet Volume 9.1 Blood Urea Nitrogen 33 Creatinine 1.39 Random Glucose 108 Calcium Level 8.8 Sodium Level 147 Potassium Level 3.3 Chloride Level 114 Carbon Dioxide Level 24.1 Anion Gap 9 Estimat Glomerular Filtration Rate 38 Date/Time Source Procedure Growth Status 02/10/18 11:41 Urine Catheterized Urine Urine Culture - Final Escherichia Coli Complete Diagnostic Tests Continuous EEG telemetry---no epileptiform discharges Loy Headley MD PhD Feb 12, 2018 20:55
[2018-02-13] VITALS (19 sets, daily range): BP systolic 142–182; BP diastolic 62–77; PULSE 95–105; RESP 17–19; TEMP 98–98.6; O2SAT 94–100
[2018-02-13] MEDS: MIDAZOLAM 100 MG/100 ML INJ 100 ML IV PRN (01:35)
[2018-02-13] MEDS: VALPROATE INJ 500 MG in SODIUM CHLORIDE 0.9% INJ 100 ML IV SCH ×4 (01:42→19:47)
[2018-02-13] MEDS: RESP: ALBUTEROL 2.5 MG/IPRATROPIUM 0.5 MG NEB (SCH) INH ×4 (03:05→20:21)
[2018-02-13] MEDS: CHLORHEXIDINE GLUCONATE 2 % 1 PACK (2 CLOTHS) TOP SCH (03:47)
[2018-02-13 04:06] LABS: HEMATOCRIT 31.4 % (35.0-46.0); HEMOGLOBIN 10.3 GM/DL (11.6-15.3); MEAN CELL VOLUME 102.6 FL (80.0-100.0); MEAN CORPUSCULAR HEMOGLOBIN 33.7 PG (27.0-34.0); MEAN CORPUSCULAR HGB CONC 32.8 % (32.0-36.0); MEAN PLATELET VOLUME 9.9 FL (7.0-11.0); PLATELET COUNT 84 TH/MM3 (150-450); RED BLOOD COUNT 3.06 MIL/MM3 (4.00-5.30); RED CELL DISTRIBUTION WIDTH 16.7 % (11.6-17.2)
[2018-02-13 04:32] LABS: BICARBONATE 24.5 MEQ/L (21.0-32.0); CALCIUM 9.5 MG/DL (8.5-10.1); CREATININE 0.89 MG/DL (0.50-1.00); MAGNESIUM 2.3 MG/DL (1.5-2.5); PHOSPHORUS 2.7 MG/DL (2.5-4.9)
[2018-02-13] MEDS: SODIUM CHLOR 0.9% 1000 ML INJ 1,000 ML IV SCH (06:05)
[2018-02-13] MEDS: INSULIN NovoLIN REGULAR SUPPLEMENTAL SCALE SQ SCH ×4 (06:27→23:43)
[2018-02-13] MEDS: LACOSAMIDE INJ 100 MG in SODIUM CHLORIDE 0.9% INJ 100 ML IV SCH ×3 (08:43→23:18)
[2018-02-13] MEDS: FAMOTIDINE 20 MG TAB PO SCH ×2 (08:43→20:15)
[2018-02-13] MEDS: DOCUSATE SODIUM 50 MG/SENNA 8.6 MG TAB PO SCH ×2 (08:44→20:16)
[2018-02-13] MEDS: CHLORHEXIDINE 0.12% (ORAL KIT) 15 ML CUP MT SCH ×2 (08:47→20:00)
[2018-02-13] MEDS: cefTRIAXone INJ 1,000 MG in SODIUM CHLORIDE 0.9% INJ 100 ML IV SCH (12:39)
[2018-02-13] MEDS: ENOXAPARIN SODIUM 40 MG/0.4 ML SYRINGE SQ SCH (12:39)
--- NOTE | 2018-02-13 13:13 | HHI.CCPN ---
Subjective Remarks/Hospital Course This is a 67-year-old female with a history of poorly controlled seizures who presents with acute altered mental status. She was last seen normal at 3 AM this morning. Initially she was considered to be a stroke alert, however CT noncontrasted brain was negative and her nonfocal appearance was much more suggestive of seizures and stroke, along with the fact that her last seen normal time was significantly delayed. Stat EEG was ordered and she was found to be in status epilepticus. She was emergently intubated due to her poor mental status. I was called immediately down to the bedside for the EEG demonstrating status. At the bedside, I pushed 10 mg of Versed IV 1 and started her on a Versed drip at 10 mg an hour. No information is available from the patient due to her mental status. ROS is unobtainable. The majority of the information I have is obtained from medical record, and in specifically the H&P documented by Dr. Guerra back in October 2017, which is very helpful. In reading through her chart, it appears that when she comes off her Topamax, she goes into status. It appears that she has recently come off Topamax again due to side effects. She is anaphylactically allergic to Keppra and phenytoin, so these are not available to us to use. Versed drip was used successfully in her last admission October 2017, so that is what we have chosen. I have spoken with Dr. Headley who is not only an on-call neurologist but her personal neurologist who sees her frequently, and he agrees with this plan. He also thinks that Vimpat is a good option for seizure control, which I agree with. We will plan to load her with that. 02/11/18: Remains encephalopathy on the vent. No spontaneous movement noted when Versed is held. Will get a repeat EEG today. Wean sedation only if seizure controlled 02/12: Calm now, no convulsive activity. EEG result pending. Midazolam at 10. 02/13: On continuous EEG monitoring, no seizures noted. Versed had been weaned down to 5 mg/h, propofol at 20 mcg/kg/min. Patient does not open eyes or moves spontaneously Objective Vital Signs Date Time Temp Pulse Resp B/P (MAP) Pulse Ox O2 Delivery O2 Flow Rate FiO2 02/13/18 11:31 98 50 02/13/18 08:00 98.2 100 18 154/66 (95) 02/10/18 16:06 Ventilator Intake and Output 02/13/18 02/13/18 02/14/18 08:00 16:00 00:00 Intake Total 2037 ml Output Total 1350 ml Balance 687 ml Result Diagram: 02/13/18 0313 02/13/18 0313 Imaging Last Impressions Head CT 02/10/18 1115 Signed Impressions: Service Date/Time: Saturday, February 10, 2018 12:19 - CONCLUSION: Stable negative noncontrast CT. Mustapha Grossman MD Chest X-Ray 02/10/18 1115 Signed Impressions: Service Date/Time: Saturday, February 10, 2018 11:34 - CONCLUSION: 1. Endotracheal tube in place. 2. Interval placement of nasogastric tube. 3. No acute cardiac pulmonary disease. Mustapha Grossman MD Objective Remarks GENERAL: middle-aged female, lying in bed, obtunded, intubated HEENT: Normocephalic. Atraumatic. Pupils 2mm, equal, round, reactive, conjugate. Mucous membranes are moist. NECK: Trachea is midline. Orally intubated. CHEST: PRVC. equal chest rise. clear to auscultation, no wheezes. CARDIOVASCULAR: normal rate, regular rhythm. sinus by tele. ABDOMEN: Soft, nontender, nondistended. No guarding. BS active. MUSCULOSKELETAL: Pulses 2+. No peripheral edema. NEUROLOGICAL: Intubated sedated with Versed. propofol. JAIR.No withdrawal while on versed and propofol. No spontaneous eye opening or movements of extremities noted A/P Assessment and Plan Assessment: 67yF with poorly controlled seizure disorder who presents in status epilepticus. remains critically ill. At Dr. Headley's request, for seizure control , was deeply sedated on versed drip and monitor EEG. Continue Vimpat and Valproic acid. frequent neuro checks. Repeat EEG 02/12 no seizure Active Problems: Status Epilepticus Acute encephalopathy Lactic acidosis- secondary to status Acute hypoxic and hypercarbic respiratory failure Plan: Continue ICU care, frequent neuro checks versed drip, propofol drip, start slow weaning EEG repeat 02/12 no active seizures. Continuous EEG monitoring no active seizures Continue valproic acid, Vimpat no weaning of mechanical ventilation until status improves, patient's neuro status improves with sedation wean wean fio2 for goal spo2 > 90% hob elevated, vent bundle, nebs telemetry Continue Ardon OG tube and tube feeds daily BMP ICU electrolyte protocol. Keep Mag>2 Lovenox SCDs Pepcid piv's This patient remains critically ill with one or more organ systems which are or may become a threat to life. I have spent in excess of 32 minutes discontinuously in the care and management of this patient. This time is exclusive of procedures, and includes, but is not limited to, evaluation of the patient, review of the medical record, discussions with family, consultants, nursing staff, or respiratory therapy, and documentation in the medical record. Murali Baum MD Feb 13, 2018 13:13
[2018-02-13] MEDS: SODIUM CHLOR 0.45% 1000 ML INJ 1,000 ML IV SCH (16:25)
[2018-02-13] MEDS: PROPOFOL 1000 MG/100 ML INJ 100 ML IV PRN ×2 (16:35→20:05)
[2018-02-13] MEDS ORDERED: LISINOPRIL 20 MG TAB PO ONE ×2 (20:00)
[2018-02-14] VITALS (18 sets, daily range): BP systolic 142–197; BP diastolic 63–85; PULSE 91–100; RESP 11–16; TEMP 97.7–98.7; O2SAT 97–100
[2018-02-14] MEDS: LORazepam 2 MG/ML VIAL IV PUSH PRN ×2 (00:33→01:48)
[2018-02-14] MEDS: VALPROATE INJ 500 MG in SODIUM CHLORIDE 0.9% INJ 100 ML IV SCH ×3 (00:41→15:08)
[2018-02-14] MEDS: PROPOFOL 1000 MG/100 ML INJ 100 ML IV PRN ×4 (02:12→22:10)
[2018-02-14] MEDS: MIDAZOLAM 100 MG/100 ML INJ 100 ML IV PRN ×2 (02:12→16:28)
[2018-02-14] MEDS: CHLORHEXIDINE GLUCONATE 2 % 1 PACK (2 CLOTHS) TOP SCH (03:00)
[2018-02-14] MEDS: RESP: ALBUTEROL 2.5 MG/IPRATROPIUM 0.5 MG NEB (SCH) INH ×4 (03:33→21:29)
[2018-02-14] MEDS: INSULIN NovoLIN REGULAR SUPPLEMENTAL SCALE SQ SCH ×3 (05:46→18:06)
[2018-02-14 06:24] LABS: BICARBONATE 26.3 MEQ/L (21.0-32.0); CALCIUM 9.5 MG/DL (8.5-10.1); CREATININE 0.68 MG/DL (0.50-1.00)
[2018-02-14] MEDS: LISINOPRIL 20 MG TAB PO SCH (08:25)
[2018-02-14] MEDS: FAMOTIDINE 20 MG TAB PO SCH ×2 (08:31→23:07)
[2018-02-14] MEDS: DOCUSATE SODIUM 50 MG/SENNA 8.6 MG TAB PO SCH ×2 (08:31→21:00)
[2018-02-14] MEDS: CHLORHEXIDINE 0.12% (ORAL KIT) 15 ML CUP MT SCH ×2 (08:31→20:00)
[2018-02-14] MEDS: LACOSAMIDE INJ 100 MG in SODIUM CHLORIDE 0.9% INJ 100 ML IV SCH ×2 (10:07→16:27)
[2018-02-14 10:43] LABS: HEMATOCRIT 27.3 % (35.0-46.0); HEMOGLOBIN 9.1 GM/DL (11.6-15.3); MEAN CELL VOLUME 100.5 FL (80.0-100.0); MEAN CORPUSCULAR HEMOGLOBIN 33.5 PG (27.0-34.0); MEAN CORPUSCULAR HGB CONC 33.3 % (32.0-36.0); MEAN PLATELET VOLUME 9.6 FL (7.0-11.0); PLATELET COUNT 75 TH/MM3 (150-450); RED BLOOD COUNT 2.71 MIL/MM3 (4.00-5.30); RED CELL DISTRIBUTION WIDTH 16.6 % (11.6-17.2)
--- NOTE | 2018-02-14 11:51 | HHI.CCPN ---
Subjective Remarks/Hospital Course This is a 67-year-old female with a history of poorly controlled seizures who presents with acute altered mental status. She was last seen normal at 3 AM this morning. Initially she was considered to be a stroke alert, however CT noncontrasted brain was negative and her nonfocal appearance was much more suggestive of seizures and stroke, along with the fact that her last seen normal time was significantly delayed. Stat EEG was ordered and she was found to be in status epilepticus. She was emergently intubated due to her poor mental status. I was called immediately down to the bedside for the EEG demonstrating status. At the bedside, I pushed 10 mg of Versed IV 1 and started her on a Versed drip at 10 mg an hour. No information is available from the patient due to her mental status. ROS is unobtainable. The majority of the information I have is obtained from medical record, and in specifically the H&P documented by Dr. Guerra back in October 2017, which is very helpful. In reading through her chart, it appears that when she comes off her Topamax, she goes into status. It appears that she has recently come off Topamax again due to side effects. She is anaphylactically allergic to Keppra and phenytoin, so these are not available to us to use. Versed drip was used successfully in her last admission October 2017, so that is what we have chosen. I have spoken with Dr. Headley who is not only an on-call neurologist but her personal neurologist who sees her frequently, and he agrees with this plan. He also thinks that Vimpat is a good option for seizure control, which I agree with. We will plan to load her with that. 02/11/18: Remains encephalopathy on the vent. No spontaneous movement noted when Versed is held. Will get a repeat EEG today. Wean sedation only if seizure controlled 02/12: Calm now, no convulsive activity. EEG result pending. Midazolam at 10. 02/13: On continuous EEG monitoring, no seizures noted. Versed had been weaned down to 5 mg/h, propofol at 20 mcg/kg/min. Patient does not open eyes or moves spontaneously 02/14: On attempted sedation wean yesterday night patient developed 2 episodes of seizures. Currently no clinical seizures. I discussed with Dr. Headley, will start phenobarbital 90 mg IV every 8 hours. Repeat EEG today. Currently back on 50 mcg/kg/min of propofol, Versed 7 mg per hour Objective Vital Signs Date Time Temp Pulse Resp B/P (MAP) Pulse Ox O2 Delivery O2 Flow Rate FiO2 02/14/18 11:04 97 35 02/14/18 10:00 93 02/14/18 08:00 98.5 16 150/67 (94) 02/10/18 16:06 Ventilator Intake and Output 02/14/18 02/14/18 02/15/18 08:00 16:00 00:00 Intake Total 899 ml Output Total 1000 ml Balance -101 ml Result Diagram: 02/14/18 1010 02/14/18 0405 Imaging Last Impressions Head CT 02/10/18 1115 Signed Impressions: Service Date/Time: Saturday, February 10, 2018 12:19 - CONCLUSION: Stable negative noncontrast CT. Mustapha Grossman MD Chest X-Ray 02/10/18 1115 Signed Impressions: Service Date/Time: Saturday, February 10, 2018 11:34 - CONCLUSION: 1. Endotracheal tube in place. 2. Interval placement of nasogastric tube. 3. No acute cardiac pulmonary disease. Mustapha Grossman MD Objective Remarks GENERAL: middle-aged female, lying in bed, heavily sedated, intubated HEENT: Normocephalic. Atraumatic. Pupils 2mm, equal, round, reactive, conjugate. Mucous membranes are moist. NECK: Trachea is midline. Orally intubated. CHEST: PRVC. equal chest rise. clear to auscultation, no wheezes. CARDIOVASCULAR: normal rate, regular rhythm. sinus by tele. ABDOMEN: Soft, nontender, nondistended. No guarding. BS active. MUSCULOSKELETAL: Pulses 2+. No peripheral edema. NEUROLOGICAL: Intubated sedated with Versed, propofol. JAIR.No withdrawal while on versed and propofol. No spontaneous eye opening or movements of extremities noted A/P Assessment and Plan Assessment: 67yF with poorly controlled seizure disorder who presents in status epilepticus. remains critically ill. At Dr. Headley's request, for seizure control , was deeply sedated on versed drip and monitor EEG. Continue Vimpat and Valproic acid. frequent neuro checks. On attempted sedation wean patient developed seizures again. Started on phenobarbital today. No sedation medication or vent weaning until seizures well-controlled remains critical Active Problems: Status Epilepticus Difficult to control seizures Acute encephalopathy Lactic acidosis- secondary to status Acute hypoxic and hypercarbic respiratory failure UTI Hypernatremia Plan: Continue ICU care, frequent neuro checks versed drip, propofol drip, no weaning due to recurrent seizures Continue valproic acid, Vimpat. Start phenobarbital 90 mg IV every 8 hours. Chek level in am EEG repeat 02/12 no active seizures. Continuous EEG monitoring was DCd. Repeat EEG today No weaning of mechanical ventilation until status improves, wean fio2 for goal spo2 > 90% hob elevated, vent bundle, nebs telemetry, Continue Ardon Rocephin for E. coli UTI Free water replacement with 500 mL D5W bolus, half-normal saline at 100 mL/h OG tube and tube feeds, free water 200 mL every 6 hours daily BMP ICU electrolyte protocol. Keep Mag>2 Lovenox,SCDs,Pepcid piv's This patient remains critically ill with one or more organ systems which are or may become a threat to life. I have spent in excess of 32 minutes discontinuously in the care and management of this patient. This time is exclusive of procedures, and includes, but is not limited to, evaluation of the patient, review of the medical record, discussions with family, consultants, nursing staff, or respiratory therapy, and documentation in the medical record. Murali Baum MD Feb 14, 2018 11:51
[2018-02-14] MEDS ORDERED: DEXTROSE 5% IN WATE 500 ML INJ 500 ML IV ONE (12:00)
[2018-02-14] MEDS: cefTRIAXone INJ 1,000 MG in SODIUM CHLORIDE 0.9% INJ 100 ML IV SCH (12:23)
[2018-02-14] MEDS: SODIUM CHLOR 0.45% 1000 ML INJ 1,000 ML IV SCH ×2 (12:24→23:08)
[2018-02-14 14:00] LABS: HEPARIN INDUCED PLATELET AB NEGATIVE (NEGATIVE)
[2018-02-14] MEDS: PHENobarbital SOD 130 MG/ML VIAL IV SCH ×2 (14:34→23:07)
--- NOTE | 2018-02-14 18:08 | HHI.PR ---
Review/Management Diagnosis status epilepticus--resolved on versed and propofol Plan continue current anticonvulsants. Add phenobarbital repeat EEG in am Diagnosis/Plan: Subjective Subjective Comments Patient developed recurrent sz when sedation held. Now back on sedation with resolution on eeg Active Medications Current Medications Medications (Trade) Dose Ordered Sig/Tiera Route Start Time Stop Time Status Last Admin (NS Flush) 2 ml UNSCH PRN IV FLUSH 02/10/18 11:15 Ceftriaxone Sodium 1000 mg/ Sodium Chloride 100 ml @ 200 mls/hr Q24H IV 02/11/18 12:00 02/14/18 12:23 Potassium Chloride 100 ml @ 25 mls/hr Q2H PRN IV 02/10/18 13:15 Potassium Chloride 100 ml @ 50 mls/hr Q2H PRN IV 02/10/18 13:15 (K-Lyte Cl Eff) 50 meq UNSCH PRN PO 02/10/18 13:15 02/12/18 09:38 Potassium Chloride 100 ml @ 25 mls/hr UNSCH PRN IV 02/10/18 13:15 Potassium Chloride 100 ml @ 50 mls/hr Q2H PRN IV 02/10/18 13:15 Magnesium Sulfate 4 gm/Sodium Chloride 100 ml @ 50 mls/hr UNSCH PRN IV 02/10/18 13:15 (Mag-Ox) 800 mg UNSCH PRN PO 02/10/18 13:15 Magnesium Sulfate 2 gm/Sodium Chloride 100 ml @ 50 mls/hr UNSCH PRN IV 02/10/18 13:15 (K-Phos) 2,000 mg Q4H PRN PO 02/10/18 13:15 Sodium Phosphate 30 mmol/Sodium Chloride 250 ml @ 42 mls/hr UNSCH PRN IV 02/10/18 13:15 (K-Phos) 2,000 mg UNSCH PRN PO/TUBE 02/10/18 13:15 Potassium Phosphate 30 mmol/ Sodium Chloride 260 ml @ 42 mls/hr UNSCH PRN IV 02/10/18 13:15 (Peridex 0.12% Liq) 15 ml BID@08,20 MT 02/10/18 20:00 02/14/18 08:31 (D50w (Vial) Inj) 25 ml UNSCH PRN IV PUSH 02/10/18 13:15 (NovoLIN R SUPPLEMENTAL SCALE) 1 Q6HR SQ 02/10/18 18:00 02/14/18 12:23 (Duoneb Neb) 1 ampule Q2HR NEB PRN INH 02/10/18 13:15 (Pepcid) 20 mg Q12HR PO 02/10/18 21:00 02/14/18 08:31 (Zofran Inj) 4 mg Q6H PRN IV PUSH 02/10/18 13:15 (Lovenox Inj) 40 mg Q24H SQ 02/10/18 14:00 Future Hold 02/13/18 12:39 Miscellaneous Information 1 Q361D XX 02/10/18 13:15 02/10/18 13:15 (Chlorhexidine 2% Cloth) 3 pack Taper DAILY@04 TOP 02/11/18 04:00 02/07/19 03:59 02/14/18 03:00 (Chlorhexidine 2% Cloth) 3 pack UNSCH PRN TOP 02/10/18 13:15 (Anahi-Colace) 1 tab BID PO 02/10/18 21:00 02/12/18 08:45 (Milk Of Magnesia Liq) 30 ml Q12H PRN PO 02/10/18 13:15 (Senokot) 17.2 mg Q12H PRN PO 02/10/18 13:15 (Dulcolax Supp) 10 mg DAILY PRN RECTAL 02/10/18 13:15 (Lactulose Liq) 30 ml DAILY PRN PO 02/10/18 13:15 Midazolam HCl 100 ml @ 2 mls/hr TITRATE PRN IV 02/10/18 14:15 02/14/18 16:28 Lacosamide 100 mg/ Sodium Chloride 110 ml @ 110 mls/hr Q8H IV 02/10/18 16:00 02/14/18 16:27 Valproate Sodium 500 mg/Sodium Chloride 105 ml @ 105 mls/hr Q6H IV 02/10/18 19:30 02/14/18 15:08 (Tylenol) 650 mg Q4H PRN PO 02/10/18 21:00 02/11/18 23:46 (Ativan Inj) 2 mg Q1H PRN IV PUSH 02/11/18 15:00 02/14/18 01:48 Propofol 100 ml @ 2.535 mls/ hr TITRATE PRN IV 02/11/18 15:00 4/4/18 16:02 (Trandate Inj) 10 mg Q4H PRN IV PUSH 02/12/18 00:15 Sodium Chloride 1,000 ml @ 100 mls/hr Q10H IV 02/13/18 14:15 02/14/18 12:24 (Prinivil) 20 mg DAILY PO 02/14/18 09:00 02/14/18 08:25 (Luminal Inj) 90 mg Q8HR IV 02/14/18 14:00 02/14/18 14:34 (Duoneb Neb) 1 ampule Q6HR NEB INH 02/14/18 16:00 02/14/18 14:58 Allergies Allergies Coded Allergies fluconazole (Unverified Allergy, Severe, 02/10/18) hydromorphone (Unverified Allergy, Severe, 02/10/18) levetiracetam (Unverified Allergy, Severe, Anaphylaxis, 02/10/18) rifampin (Unverified Allergy, Severe, 02/10/18) phenytoin (Unverified Allergy, Mild, Rash, 02/10/18) Exam I&O / VS 02/14/18 02/14/18 02/15/18 15:00 23:00 07:00 Intake Total 805 ml Balance 805 ml IV Total 805 ml Vital Signs Date Time Temp Pulse Resp B/P (MAP) Pulse Ox O2 Delivery O2 Flow Rate FiO2 02/14/18 16:00 98.2 92 12 156/68 (97) 98 02/14/18 16:00 92 02/14/18 16:00 40 02/14/18 14:59 98 35 02/14/18 14:00 93 02/14/18 12:00 92 02/14/18 12:00 98.7 92 15 147/65 (92) 97 02/14/18 12:00 40 02/14/18 11:04 97 35 02/14/18 10:00 93 02/14/18 08:00 95 02/14/18 08:00 40 02/14/18 08:00 98.5 95 16 150/67 (94) 97 02/14/18 07:21 97 35 02/14/18 06:00 93 02/14/18 04:29 97 40 02/14/18 04:00 40 02/14/18 04:00 97.7 93 13 142/63 (89) 98 02/14/18 04:00 93 02/14/18 02:00 94 02/14/18 01:10 98 40 02/14/18 00:00 100 02/14/18 00:00 98.5 100 11 197/85 (122) 100 02/14/18 00:00 40 02/13/18 22:20 98 40 02/13/18 22:00 101 02/13/18 20:00 104 02/13/18 20:00 40 02/13/18 20:00 98.6 104 18 182/77 (112) 100 02/13/18 19:20 100 50 Exam Comments sedated, nonresponseve No tonic clonic activity No focal deficit Objective Micro and Labs Laboratory Tests Test 02/14/18 04:05 02/14/18 10:10 Blood Urea Nitrogen 25 Creatinine 0.68 Random Glucose 177 Calcium Level 9.5 Sodium Level 152 Potassium Level 4.4 Chloride Level 120 Carbon Dioxide Level 26.3 Anion Gap 6 Estimat Glomerular Filtration Rate 86 White Blood Count 12.0 Red Blood Count 2.71 Hemoglobin 9.1 Hematocrit 27.3 Mean Corpuscular Volume 100.5 Mean Corpuscular Hemoglobin 33.5 Mean Corpuscular Hemoglobin Concent 33.3 Red Cell Distribution Width 16.6 Platelet Count 75 Mean Platelet Volume 9.6 Date/Time Source Procedure Growth Status 02/10/18 11:41 Urine Catheterized Urine Urine Culture - Final Escherichia Coli Complete Loy Headley MD PhD Feb 14, 2018 18:08
[2018-02-15] VITALS (18 sets, daily range): BP systolic 127–205; BP diastolic 60–86; PULSE 68–97; RESP 15–17; TEMP 98.1–101.3; O2SAT 96–100
[2018-02-15] MEDS: VALPROATE INJ 500 MG in SODIUM CHLORIDE 0.9% INJ 100 ML IV SCH ×5 (01:48→21:28)
[2018-02-15] MEDS: CHLORHEXIDINE GLUCONATE 2 % 1 PACK (2 CLOTHS) TOP SCH (02:39)
[2018-02-15] MEDS: LACOSAMIDE INJ 100 MG in SODIUM CHLORIDE 0.9% INJ 100 ML IV SCH ×3 (04:04→21:30)
[2018-02-15] MEDS: RESP: ALBUTEROL 2.5 MG/IPRATROPIUM 0.5 MG NEB (SCH) INH ×4 (04:31→20:11)
[2018-02-15 04:34] LABS: BASOPHIL # 0.1 TH/MM3 (0-0.2); BASOPHIL % 0.8 % (0.0-2.0); EOSINOPHIL # 0.6 TH/MM3 (0-0.4); EOSINOPHIL % 3.9 % (0.0-4.0); HEMOGLOBIN 9.2 GM/DL (11.6-15.3); LYMPH % 9.2 % (9.0-44.0); LYMPHOCYTE # 1.4 TH/MM3 (1.0-4.8); MEAN CELL VOLUME 101.6 FL (80.0-100.0); MEAN CORPUSCULAR HEMOGLOBIN 33.5 PG (27.0-34.0); MEAN PLATELET VOLUME 9.8 FL (7.0-11.0); MONO % 5.5 % (0.0-8.0); MONOCYTE # 0.8 TH/MM3 (0-0.9); NEUT % 80.6 % (16.0-70.0); PLATELET COUNT 83 TH/MM3 (150-450); RED BLOOD COUNT 2.76 MIL/MM3 (4.00-5.30); RED CELL DISTRIBUTION WIDTH 16.4 % (11.6-17.2); WHITE BLOOD COUNT 14.9 TH/MM3 (4.0-11.0)
[2018-02-15 04:56] LABS: ALBUMIN 1.3 GM/DL (3.4-5.0); ALT (GPT) 8 U/L (10-53); AST (GOT) 14 U/L (15-37); BICARBONATE 29.9 MEQ/L (21.0-32.0); BLOOD UREA NITROGEN 24 MG/DL (7-18); CALCIUM 9.1 MG/DL (8.5-10.1); CHLORIDE 116 MEQ/L (98-107); CREATININE 0.64 MG/DL (0.50-1.00); GLOMERULAR FILTRATION RATE 92 ML/MIN (>89); GLUCOSE,RANDOM 161 MG/DL (74-106); SODIUM (NA) 151 MEQ/L (136-145)
[2018-02-15 05:00] LABS: ALKALINE PHOSPHATASE 80 U/L (45-117); TOTAL BILIRUBIN ADULT 0.2 MG/DL (0.2-1.0); TOTAL PROTEIN 5.1 GM/DL (6.4-8.2)
[2018-02-15] MEDS: INSULIN NovoLIN REGULAR SUPPLEMENTAL SCALE SQ SCH ×4 (06:00→17:09)
--- NOTE | 2018-02-15 06:19 | RADRPT ---
EXAM DATE/TIME: 02/15/2018 03:49 [facility] COMPARISON: CHEST SINGLE AP, February 10, 2018, 11:34. INDICATIONS : Shortness of breath, possible pulmonary disease. MEDICAL HISTORY : Arthritis. Hypertension Seizures SURGICAL HISTORY : Hysterectomy. section. Total knee replacement, left. Total knee replacement, right Spine fus ion ENCOUNTER: Subsequent ACUITY: 4 - 6 days PAIN SCORE: Non-responsive. LOCATION: Bilateral chest FINDINGS: Endotracheal tube and nasogastric tube are stable. Aeration has deteriorated slightly with developmen t of hazy bibasilar pleural-parenchymal opacities. Cardiac contour is grossly unchanged. CONCLUSION: Interval worsening in aeration Bautista Paul MD on February 15, 2018 at 6:16 Board Certified Radiologist. This report was verified electronically.
[2018-02-15] MEDS: PHENobarbital SOD 130 MG/ML VIAL IV SCH ×3 (06:22→23:06)
[2018-02-15] MEDS: PROPOFOL 1000 MG/100 ML INJ 100 ML IV PRN ×4 (06:23→23:06)
--- NOTE | 2018-02-15 08:10 | MG ---
cc: Inder Kathleen MD ELECTROENCEPHALOGRAM NUMBER: [id number]. DESCRIPTION: On Diprivan. MRI negative. Was a Stroke-Alert. Lisinopril, Depakote. The patient is sedated. There is a somewhat at times slight asynchrony to the background, but generally a diffuse 6 Hz slowing is noted. At some times, there is a slight increased slowing on the left central head region compared to the right and it can phase reverse occasionally over C3, such as at epoch 105, but no spikes are noted. Photic stimulation is performed without significant posterior driving. Hyperventilation is not performed. IMPRESSION: At times, some slight asynchrony, some diffuse slowing consistent with a moderate diffuse encephalopathy. A lot of it could be medication effect. Occasional slight phase reversing over the left central head region and abnormality there could be ruled out. No major seizure activity is noted. Again, I note on epoch 64 some slowing over the left central head region, more so than the right, especially on the transverse montage. MD ANA MARIA Cr/MARCIA , 08:42 PM , 09:03 PM
[2018-02-15 08:12] LABS: BANDS 44 % (0-6); LYMPHOCYTES 9 % (9-44); METAMYELOCYTES 3 % (0-1); MONOCYTES 5 % (0-8); MYELOCYTES 4 % (0-0); NEUTROPHIL # MANUAL DIFF 12.5 TH/MM3 (1.8-7.7); POLYS (SEG NEUTROPHILS) 33 % (16-70); TOXIC GRANULATION 2+ (NORMAL)
[2018-02-15] MEDS: FAMOTIDINE 20 MG TAB PO SCH ×2 (08:33→21:29)
[2018-02-15] MEDS: DOCUSATE SODIUM 50 MG/SENNA 8.6 MG TAB PO SCH ×2 (08:33→21:29)
[2018-02-15] MEDS: LISINOPRIL 20 MG TAB PO SCH (08:33)
[2018-02-15] MEDS: CHLORHEXIDINE 0.12% (ORAL KIT) 15 ML CUP MT SCH ×2 (08:34→20:00)
[2018-02-15] MEDS: SODIUM CHLOR 0.45% 1000 ML INJ 1,000 ML IV SCH (08:34)
[2018-02-15] MEDS: MIDAZOLAM 100 MG/100 ML INJ 100 ML IV PRN (09:44)
--- NOTE | 2018-02-15 10:09 | HHI.CCPN ---
Subjective Remarks/Hospital Course This is a 67-year-old female with a history of poorly controlled seizures who presents with acute altered mental status. She was last seen normal at 3 AM this morning. Initially she was considered to be a stroke alert, however CT noncontrasted brain was negative and her nonfocal appearance was much more suggestive of seizures and stroke, along with the fact that her last seen normal time was significantly delayed. Stat EEG was ordered and she was found to be in status epilepticus. She was emergently intubated due to her poor mental status. I was called immediately down to the bedside for the EEG demonstrating status. At the bedside, I pushed 10 mg of Versed IV 1 and started her on a Versed drip at 10 mg an hour. No information is available from the patient due to her mental status. ROS is unobtainable. The majority of the information I have is obtained from medical record, and in specifically the H&P documented by Dr. Guerra back in October 2017, which is very helpful. In reading through her chart, it appears that when she comes off her Topamax, she goes into status. It appears that she has recently come off Topamax again due to side effects. She is anaphylactically allergic to Keppra and phenytoin, so these are not available to us to use. Versed drip was used successfully in her last admission October 2017, so that is what we have chosen. I have spoken with Dr. Headley who is not only an on-call neurologist but her personal neurologist who sees her frequently, and he agrees with this plan. He also thinks that Vimpat is a good option for seizure control, which I agree with. We will plan to load her with that. 02/11/18: Remains encephalopathy on the vent. No spontaneous movement noted when Versed is held. Will get a repeat EEG today. Wean sedation only if seizure controlled 02/12: Calm now, no convulsive activity. EEG result pending. Midazolam at 10. 02/13: On continuous EEG monitoring, no seizures noted. Versed had been weaned down to 5 mg/h, propofol at 20 mcg/kg/min. Patient does not open eyes or moves spontaneously 02/14: On attempted sedation wean yesterday night patient developed 2 episodes of seizures. Currently no clinical seizures. I discussed with Dr. Headley, will start phenobarbital 90 mg IV every 8 hours. Repeat EEG today. Currently back on 50 mcg/kg/min of propofol, Versed 7 mg per hour 02/15: Remains heavily sedated, started on phenobarbital IV yesterday. Level only 2.8. Will increase dose to 120 mg every 8 hours repeat level in a.m. EEG today pending. No sedation weaning without clearance from Dr. Headley. EEG yesterday showed some left-sided phase reversal. Leukocytosis with bandemia noted, will re culture Objective Vital Signs Date Time Temp Pulse Resp B/P (MAP) Pulse Ox O2 Delivery O2 Flow Rate FiO2 02/15/18 07:39 97 35 02/15/18 06:00 97 02/15/18 04:00 98.1 16 177/77 (110) Intake and Output 02/15/18 02/15/18 02/16/18 08:00 16:00 00:00 Intake Total 1106 ml Output Total 1300 ml Balance -194 ml Result Diagram: 02/15/18 0341 02/15/18 0341 Imaging Last Impressions Head CT 02/10/18 1115 Signed Impressions: Service Date/Time: Saturday, February 10, 2018 12:19 - CONCLUSION: Stable negative noncontrast CT. Mustapha Grossman MD Chest X-Ray 02/10/18 1115 Signed Impressions: Service Date/Time: Saturday, February 10, 2018 11:34 - CONCLUSION: 1. Endotracheal tube in place. 2. Interval placement of nasogastric tube. 3. No acute cardiac pulmonary disease. Mustapha Grossman MD Objective Remarks GENERAL: Middle-aged female, lying in bed, heavily sedated, intubated HEENT: Normocephalic. Atraumatic. Pupils 2mm, equal, round, reactive, conjugate. Mucous membranes are moist. NECK: Trachea is midline. Orally intubated. CHEST: PRVC. equal chest rise. clear to auscultation, no wheezes. CARDIOVASCULAR: normal rate, regular rhythm. sinus by tele. ABDOMEN: Soft, nontender, nondistended. No guarding. BS active. MUSCULOSKELETAL: Pulses 2+. No peripheral edema. NEUROLOGICAL: Intubated sedated with Versed, propofol. JAIR.No withdrawal while on versed and propofol. No spontaneous eye opening or movements of extremities noted. (Unable to do sedation vacation) A/P Assessment and Plan Assessment: 67yF with poorly controlled seizure disorder who presents in status epilepticus. remains critically ill. At Dr. Headley's request, for seizure control , was deeply sedated on versed drip and monitor EEG. Continue Vimpat and Valproic acid. frequent neuro checks. On attempted sedation wean patient developed seizures again. Started on phenobarbital yesterday, increase phenobarbital dose today. No sedation medication or vent weaning until seizures well-controlled remains critical Active Problems: Status Epilepticus Difficult to control seizures Acute encephalopathy Lactic acidosis- secondary to status Acute hypoxic and hypercarbic respiratory failure UTI Hypernatremia Plan: Neuro: -Continue versed drip, propofol drip, no weaning due to recurrent seizures -Continue valproic acid, Vimpat. On phenobarbital 90 mg IV every 8 hours. Level 2.8, increase to 120 mg IV q8 -EEG repeat 02/12 no active seizures. 02/14 probable phase reversal noted on left side. Repeat EEG today -Continue ICU care, frequent neuro checks Resp: -No weaning of mechanical ventilation until status improves, wean fio2 for goal spo2 > 90% -Hob elevated, vent bundle, nebs, telemetry, Continue [facility] -OG tube and tube feeds, free water 200 mL every 6 hours : -Free water replacement with 500 mL D5W bolus, half-normal saline at 100 mL/h- change to 1/4 NS at 100 ml per hour -daily BMP -ICU electrolyte protocol. Keep Mag>2 ID: -UTI with E. coli on Rocephin -Now with leukocytosis and bandemia, repeat panculture HEME: -Monitor CBC coags as needed DVT/GI prophylaxis -Lovenox,SCDs,Pepcid -piv's This patient remains critically ill with one or more organ systems which are or may become a threat to life. I have spent in excess of 32 minutes discontinuously in the care and management of this patient. This time is exclusive of procedures, and includes, but is not limited to, evaluation of the patient, review of the medical record, discussions with family, consultants, nursing staff, or respiratory therapy, and documentation in the medical record. Murali Baum MD Feb 15, 2018 10:09
[2018-02-15] MEDS: cefTRIAXone INJ 1,000 MG in SODIUM CHLORIDE 0.9% INJ 100 ML IV SCH (11:18)
[2018-02-15] MEDS: SODIUM CHLORIDE 23.4% INJ 38.5 MEQ in WATER STERILE FOR INJ 1,000 ML IV SCH (11:39)
[2018-02-15] MEDS: ACETAMINOPHEN 325 MG TAB PO PRN (11:39)
[2018-02-15 16:52] LABS: BACTERIA, URINE OCC /hpf; BILIRUBIN, URINE NEG (NEG); BLOOD, URINE SMALL (NEG); GLUCOSE,URINE NEG (NEG); KETONE, URINE NEG (NEG); MUCUS URINE FEW /lpf (OCC); NITRITE,URINE NEG (NEG); TRANSITIONAL EPI CELLS, URINE 1 /hpf; URINE COLOR YELLOW (YELLW/STRAW); URINE LEUKOCYTE ESTERASE MOD (NEG)
--- NOTE | 2018-02-15 19:15 | HHI.PR ---
Review/Management Diagnosis status epilepticus--resolved on versed and propofol Plan continue current anticonvulsants. Add phenobarbital--increase level repeat EEG in am--if stable will wean propofol and versed Diagnosis/Plan: Subjective Subjective Comments Pt had persistent epileptiform activity on eeg today. Now on versed and diprivan Active Medications Current Medications Medications (Trade) Dose Ordered Sig/Tiera Route Start Time Stop Time Status Last Admin (NS Flush) 2 ml UNSCH PRN IV FLUSH 02/10/18 11:15 Ceftriaxone Sodium 1000 mg/ Sodium Chloride 100 ml @ 200 mls/hr Q24H IV 02/11/18 12:00 02/15/18 11:18 Potassium Chloride 100 ml @ 25 mls/hr Q2H PRN IV 02/10/18 13:15 Potassium Chloride 100 ml @ 50 mls/hr Q2H PRN IV 02/10/18 13:15 (K-Lyte Cl Eff) 50 meq UNSCH PRN PO 02/10/18 13:15 02/12/18 09:38 Potassium Chloride 100 ml @ 25 mls/hr UNSCH PRN IV 02/10/18 13:15 Potassium Chloride 100 ml @ 50 mls/hr Q2H PRN IV 02/10/18 13:15 Magnesium Sulfate 4 gm/Sodium Chloride 100 ml @ 50 mls/hr UNSCH PRN IV 02/10/18 13:15 (Mag-Ox) 800 mg UNSCH PRN PO 02/10/18 13:15 Magnesium Sulfate 2 gm/Sodium Chloride 100 ml @ 50 mls/hr UNSCH PRN IV 02/10/18 13:15 (K-Phos) 2,000 mg Q4H PRN PO 02/10/18 13:15 Sodium Phosphate 30 mmol/Sodium Chloride 250 ml @ 42 mls/hr UNSCH PRN IV 02/10/18 13:15 (K-Phos) 2,000 mg UNSCH PRN PO/TUBE 02/10/18 13:15 Potassium Phosphate 30 mmol/ Sodium Chloride 260 ml @ 42 mls/hr UNSCH PRN IV 02/10/18 13:15 (Peridex 0.12% Liq) 15 ml BID@08,20 MT 02/10/18 20:00 02/15/18 08:34 (D50w (Vial) Inj) 25 ml UNSCH PRN IV PUSH 02/10/18 13:15 (NovoLIN R SUPPLEMENTAL SCALE) 1 Q6HR SQ 02/10/18 18:00 02/15/18 17:09 (Duoneb Neb) 1 ampule Q2HR NEB PRN INH 02/10/18 13:15 (Pepcid) 20 mg Q12HR PO 02/10/18 21:00 02/15/18 08:33 (Zofran Inj) 4 mg Q6H PRN IV PUSH 02/10/18 13:15 (Lovenox Inj) 40 mg Q24H SQ 02/10/18 14:00 Future Hold 02/13/18 12:39 Miscellaneous Information 1 Q361D XX 02/10/18 13:15 02/10/18 13:15 (Chlorhexidine 2% Cloth) 3 pack Taper DAILY@04 TOP 02/11/18 04:00 02/07/19 03:59 02/15/18 02:39 (Chlorhexidine 2% Cloth) 3 pack UNSCH PRN TOP 02/10/18 13:15 (Anahi-Colace) 1 tab BID PO 02/10/18 21:00 02/15/18 08:33 (Milk Of Magnesia Liq) 30 ml Q12H PRN PO 02/10/18 13:15 (Senokot) 17.2 mg Q12H PRN PO 02/10/18 13:15 (Dulcolax Supp) 10 mg DAILY PRN RECTAL 02/10/18 13:15 (Lactulose Liq) 30 ml DAILY PRN PO 02/10/18 13:15 Midazolam HCl 100 ml @ 2 mls/hr TITRATE PRN IV 02/10/18 14:15 02/15/18 09:44 Valproate Sodium 500 mg/Sodium Chloride 105 ml @ 105 mls/hr Q6H IV 02/10/18 19:30 02/15/18 13:57 (Tylenol) 650 mg Q4H PRN PO 02/10/18 21:00 02/15/18 11:39 (Ativan Inj) 2 mg Q1H PRN IV PUSH 02/11/18 15:00 02/14/18 01:48 Propofol 100 ml @ 2.535 mls/ hr TITRATE PRN IV 02/11/18 15:00 02/15/18 17:16 (Trandate Inj) 10 mg Q4H PRN IV PUSH 02/12/18 00:15 (Prinivil) 20 mg DAILY PO 02/14/18 09:00 02/15/18 08:33 (Duoneb Neb) 1 ampule Q6HR NEB INH 02/14/18 16:00 02/15/18 16:07 Lacosamide 100 mg/ Sodium Chloride 110 ml @ 110 mls/hr Q8H IV 02/15/18 12:00 02/15/18 11:39 (Luminal Inj) 120 mg Q8HR IV 02/15/18 14:00 02/15/18 13:57 Sodium Chloride 38.5 meq/Sterile Water 1,009.625 ml @ 125 mls/hr Q8H5M IV 02/15/18 11:00 02/15/18 11:39 Allergies Allergies Coded Allergies fluconazole (Unverified Allergy, Severe, 02/10/18) hydromorphone (Unverified Allergy, Severe, 02/10/18) levetiracetam (Unverified Allergy, Severe, Anaphylaxis, 02/10/18) rifampin (Unverified Allergy, Severe, 02/10/18) phenytoin (Unverified Allergy, Mild, Rash, 02/10/18) Exam I&O / VS 02/15/18 02/15/18 02/16/18 14:59 22:59 06:59 Intake Total 707 ml Output Total 900 ml Balance -193 ml Tube Feeding 607 ml Other 100 ml Output Urine Total 900 ml # Bowel Movements 0 Vital Signs Date Time Temp Pulse Resp B/P (MAP) Pulse Ox O2 Delivery O2 Flow Rate FiO2 02/15/18 18:00 68 02/15/18 16:00 99.3 71 15 127/60 (82) 100 02/15/18 16:00 35 02/15/18 16:00 71 02/15/18 16:00 100 35 02/15/18 14:00 75 02/15/18 12:00 35 02/15/18 12:00 90 02/15/18 12:00 101.3 90 15 146/67 (93) 97 02/15/18 10:41 97 35 02/15/18 10:00 93 02/15/18 08:00 96 02/15/18 08:00 35 02/15/18 08:00 98.8 96 17 167/72 (103) 96 02/15/18 07:39 97 35 02/15/18 06:00 97 02/15/18 04:29 97 35 02/15/18 04:00 96 02/15/18 04:00 35 02/15/18 04:00 98.1 96 16 177/77 (110) 97 02/15/18 02:00 96 02/15/18 00:12 96 35 02/15/18 00:00 35 02/15/18 00:00 98.2 93 15 162/70 (100) 96 02/15/18 00:00 93 02/14/18 22:00 93 02/14/18 21:26 97 35 02/14/18 20:00 91 02/14/18 20:00 98.0 91 15 148/65 (92) 97 02/14/18 20:00 35 Exam Comments sedated, nonresponseve No tonic clonic activity No focal deficit Objective Micro and Labs Laboratory Tests Test 02/15/18 03:41 02/15/18 16:00 White Blood Count 14.9 Red Blood Count 2.76 Hemoglobin 9.2 Hematocrit 28.0 Mean Corpuscular Volume 101.6 Mean Corpuscular Hemoglobin 33.5 Mean Corpuscular Hemoglobin Concent 33.0 Red Cell Distribution Width 16.4 Platelet Count 83 Mean Platelet Volume 9.8 Neutrophils (%) (Auto) 80.6 Lymphocytes (%) (Auto) 9.2 Monocytes (%) (Auto) 5.5 Eosinophils (%) (Auto) 3.9 Basophils (%) (Auto) 0.8 Neutrophils # (Auto) 12.0 Lymphocytes # (Auto) 1.4 Monocytes # (Auto) 0.8 Eosinophils # (Auto) 0.6 Basophils # (Auto) 0.1 CBC Comment AUTO DIFF Differential Total Cells Counted 100 Neutrophils % (Manual) 33 Band Neutrophils % 44 Lymphocytes % 9 Monocytes % 5 Eosinophils % 2 Neutrophils # (Manual) 12.5 Metamyelocytes 3 Myelocytes 4 Differential Comment FINAL DIFF MANUAL Toxic Granulation 2+ Platelet Estimate LOW Platelet Morphology Comment NORMAL Blood Urea Nitrogen 24 Creatinine 0.64 Random Glucose 161 Total Protein 5.1 Albumin 1.3 Calcium Level 9.1 Magnesium Level 2.0 Alkaline Phosphatase 80 Aspartate Amino Transf (AST/SGOT) 14 Alanine Aminotransferase (ALT/SGPT) 8 Total Bilirubin 0.2 Sodium Level 151 Potassium Level 3.8 Chloride Level 116 Carbon Dioxide Level 29.9 Anion Gap 5 Estimat Glomerular Filtration Rate 92 Phenobarbital Level 2.8 Urine Color YELLOW Urine Turbidity HAZY Urine pH 6.0 Urine Specific [place] 1.018 Urine Protein TRACE Urine Glucose (UA) NEG Urine Ketones NEG Urine Occult Blood SMALL Urine Nitrite NEG Urine Bilirubin NEG Urine Urobilinogen LESS THAN 2.0 Urine Leukocyte Esterase MOD Urine RBC 32 Urine WBC 14 Urine Transitional Epithelial Cells 1 Urine Bacteria OCC Urine Mucus FEW Microscopic Urinalysis Comment CATH-CULTURE IND Date/Time Source Procedure Growth Status 02/15/18 12:00 Blood Peripheral Aerobic Blood Culture Pending Received 02/15/18 12:00 Blood Peripheral Anaerobic Blood Culture Pending Received 02/15/18 16:00 Urine Catheterized Urine Urine Culture Pending Received Loy Headley MD PhD Feb 15, 2018 19:15
[2018-02-16] VITALS (29 sets, daily range): BP systolic 134–216; BP diastolic 60–94; PULSE 73–86; RESP 15–25; TEMP 97.4–100.1; O2SAT 91–100
[2018-02-16] MEDS: VALPROATE INJ 500 MG in SODIUM CHLORIDE 0.9% INJ 100 ML IV SCH ×4 (01:02→19:38)
[2018-02-16] MEDS: SODIUM CHLORIDE 23.4% INJ 38.5 MEQ in WATER STERILE FOR INJ 1,000 ML IV SCH ×3 (03:03→19:20)
[2018-02-16] MEDS: CHLORHEXIDINE GLUCONATE 2 % 1 PACK (2 CLOTHS) TOP SCH (03:04)
[2018-02-16] MEDS: LACOSAMIDE INJ 100 MG in SODIUM CHLORIDE 0.9% INJ 100 ML IV SCH ×3 (03:04→20:32)
[2018-02-16] MEDS: MIDAZOLAM 100 MG/100 ML INJ 100 ML IV PRN ×2 (03:33→21:12)
[2018-02-16] MEDS: RESP: ALBUTEROL 2.5 MG/IPRATROPIUM 0.5 MG NEB (SCH) INH ×4 (04:11→21:00)
[2018-02-16 05:27] LABS: HEMATOCRIT 25.9 % (35.0-46.0); HEMOGLOBIN 8.4 GM/DL (11.6-15.3); MEAN CELL VOLUME 101.5 FL (80.0-100.0); MEAN CORPUSCULAR HEMOGLOBIN 33.1 PG (27.0-34.0); MEAN CORPUSCULAR HGB CONC 32.6 % (32.0-36.0); MEAN PLATELET VOLUME 10.1 FL (7.0-11.0); PLATELET COUNT 87 TH/MM3 (150-450); RED BLOOD COUNT 2.55 MIL/MM3 (4.00-5.30); RED CELL DISTRIBUTION WIDTH 16.7 % (11.6-17.2); WHITE BLOOD COUNT 14.1 TH/MM3 (4.0-11.0)
[2018-02-16] MEDS: PROPOFOL 1000 MG/100 ML INJ 100 ML IV PRN ×3 (05:38→19:39)
[2018-02-16] MEDS: PHENobarbital SOD 130 MG/ML VIAL IV SCH ×3 (05:38→21:12)
[2018-02-16 05:56] LABS: BICARBONATE 31.2 MEQ/L (21.0-32.0); CALCIUM 8.7 MG/DL (8.5-10.1); CREATININE 0.6 MG/DL (0.50-1.00)
[2018-02-16] MEDS: INSULIN NovoLIN REGULAR SUPPLEMENTAL SCALE SQ SCH ×4 (06:00→17:07)
[2018-02-16] MEDS: LABETALOL HCL 100 MG/20 ML VIAL IV PUSH PRN ×3 (07:28→17:06)
[2018-02-16] MEDS: LISINOPRIL 20 MG TAB PO SCH (07:47)
[2018-02-16] MEDS: FAMOTIDINE 20 MG TAB PO SCH ×2 (07:47→20:32)
[2018-02-16] MEDS: DOCUSATE SODIUM 50 MG/SENNA 8.6 MG TAB PO SCH ×2 (07:47→20:32)
[2018-02-16] MEDS: CHLORHEXIDINE 0.12% (ORAL KIT) 15 ML CUP MT SCH ×2 (07:47→20:32)
--- NOTE | 2018-02-16 09:40 | MG ---
cc: Inder Kathleen MD EEG NUMBER: [id number] INDICATION: Intubated, on Diprivan. Some slowing on the left in past EEGs, on Diprivan, ceftriaxone and Depakote. DESCRIPTION: Diffuse theta slowing is noted down to 5-6 Hz. Recording overall synchronous and symmetric. A phase reversing sharp wave is seen over the left central head region at Epoch 34. The patient is noted to be intubated and sedated. It looks like, however, sleep activity on the transverse montage, like a vertex sharp wave and in fact, looks like normal-appearing sleep. Some sleep spindles are noted. Photic stimulation is performed without significant posterior driving. IMPRESSION: Normal stage 2 sleep in this patient, probably also some medication effect. No definite focal abnormality was noted. No hemisphere asymmetry was seen. No seizure activity was noted. Inder Kathleen MD DJArmand/KD , 09:27 AM , 09:39 AM
--- NOTE | 2018-02-16 10:06 | HHI.CCPN ---
Subjective Remarks/Hospital Course This is a 67-year-old female with a history of poorly controlled seizures who presents with acute altered mental status. She was last seen normal at 3 AM this morning. Initially she was considered to be a stroke alert, however CT noncontrasted brain was negative and her nonfocal appearance was much more suggestive of seizures and stroke, along with the fact that her last seen normal time was significantly delayed. Stat EEG was ordered and she was found to be in status epilepticus. She was emergently intubated due to her poor mental status. I was called immediately down to the bedside for the EEG demonstrating status. At the bedside, I pushed 10 mg of Versed IV 1 and started her on a Versed drip at 10 mg an hour. No information is available from the patient due to her mental status. ROS is unobtainable. The majority of the information I have is obtained from medical record, and in specifically the H&P documented by Dr. Guerra back in October 2017, which is very helpful. In reading through her chart, it appears that when she comes off her Topamax, she goes into status. It appears that she has recently come off Topamax again due to side effects. She is anaphylactically allergic to Keppra and phenytoin, so these are not available to us to use. Versed drip was used successfully in her last admission October 2017, so that is what we have chosen. I have spoken with Dr. Headley who is not only an on-call neurologist but her personal neurologist who sees her frequently, and he agrees with this plan. He also thinks that Vimpat is a good option for seizure control, which I agree with. We will plan to load her with that. 02/11/18: Remains encephalopathy on the vent. No spontaneous movement noted when Versed is held. Will get a repeat EEG today. Wean sedation only if seizure controlled 02/12: Calm now, no convulsive activity. EEG result pending. Midazolam at 10. 02/13: On continuous EEG monitoring, no seizures noted. Versed had been weaned down to 5 mg/h, propofol at 20 mcg/kg/min. Patient does not open eyes or moves spontaneously 02/14: On attempted sedation wean yesterday night patient developed 2 episodes of seizures. Currently no clinical seizures. I discussed with Dr. Headley, will start phenobarbital 90 mg IV every 8 hours. Repeat EEG today. Currently back on 50 mcg/kg/min of propofol, Versed 7 mg per hour 02/15: Remains heavily sedated, started on phenobarbital IV yesterday. Level only 2.8. Will increase dose to 120 mg every 8 hours repeat level in a.m. EEG today pending. No sedation weaning without clearance from Dr. Headley. EEG yesterday showed some left-sided phase reversal. Leukocytosis with bandemia noted, will re culture 02/16: Pt had persistent epileptiform activity on eeg 02/[address] Headley. No sedation vacation until repeat EEG shows resolution. I have updated about this at the bedside. Repeat cultures pending at this time. Check renal ultrasound as the patient had recent hydronephrosis, ureteral stent. Patient remains critically ill in severely encephalopathic due to uncontrolled seizures Objective Vital Signs Date Time Temp Pulse Resp B/P (MAP) Pulse Ox O2 Delivery O2 Flow Rate FiO2 02/16/18 08:39 99 35 02/16/18 06:00 80 02/16/18 04:00 99.8 15 134/60 (84) Intake and Output 02/16/18 02/16/18 02/17/18 08:00 16:00 00:00 Intake Total 1854 ml Output Total 1400 ml Balance 454 ml Result Diagram: 02/16/18 0332 02/16/18 0332 Imaging Last Impressions Head CT 02/10/18 1115 Signed Impressions: Service Date/Time: Saturday, February 10, 2018 12:19 - CONCLUSION: Stable negative noncontrast CT. Mustapha Grossman MD Chest X-Ray 02/10/18 1115 Signed Impressions: Service Date/Time: Saturday, February 10, 2018 11:34 - CONCLUSION: 1. Endotracheal tube in place. 2. Interval placement of nasogastric tube. 3. No acute cardiac pulmonary disease. Mustapha Grossman MD Objective Remarks GENERAL: Middle-aged female, lying in bed, heavily sedated, intubated HEENT: Normocephalic. Atraumatic. Pupils 2mm, equal, round, reactive, conjugate. Mucous membranes are moist. NECK: Trachea is midline. Orally intubated. CHEST: PRVC. equal chest rise. clear to auscultation, no wheezes. CARDIOVASCULAR: normal rate, regular rhythm. sinus by tele. ABDOMEN: Soft, nontender, nondistended. No guarding. BS active. MUSCULOSKELETAL: Pulses 2+. No peripheral edema. NEUROLOGICAL: Intubated sedated with Versed, propofol. JAIR.No withdrawal while on versed and propofol. No spontaneous eye opening or movements. (Unable to wean sedation) A/P Assessment and Plan Assessment: 67yF with poorly controlled seizure disorder who presents in status epilepticus. Remains critically ill. At Dr. Headley's request, for seizure control , was deeply sedated on versed drip and monitor EEG. Continue Vimpat and Valproic acid. frequent neuro checks. On attempted sedation wean patient developed seizures again. Started on phenobarbital yesterday, increase phenobarbital dose today. No sedation medication or vent weaning until seizures well-controlled remains critical Active Problems: Status Epilepticus Uncontrolled seizures Acute encephalopathy Acute hypoxic and hypercarbic respiratory failure UTI Hypernatremia Lactic acidosis- secondary to status Recent ureteral stent for hydronephrosis Plan: Neuro: -Continue versed drip, propofol drip, no weaning due to poorly controlled seizure -EEG 02/15/18 showed persistent seizure activity -Continue valproic acid, Vimpat. On phenobarbital 120 mg IV every 8 hours. Level 7.4, increase to 140 mg IV q8 -EEG repeat 02/12 no active seizures. 4/4 probable phase reversal noted on left side. 4/5 persistent seizures -Repeat EEG pending today. No sedation vacation until cleared by Dr. Headley -Continue ICU care, frequent neuro checks Resp: -No weaning of mechanical ventilation until status improves, wean fio2 for goal spo2 > 90% -Hob elevated, vent bundle, nebs, telemetry, Continue Ardon -Sputum culture GI -OG tube and tube feeds, free water 200 mL every 6 hours : -Free water replacement with 1/4 NS at 100 ml per hour -daily BMP. Sodium slowly improving -ICU electrolyte protocol. Keep Mag>2 ID: -UTI with E. coli on Rocephin -Leukocytosis and bandemia, repeat panculture -DC Rocephin, start cefepime 2 g IV every 8 hours -Renal ultrasound to rule out hydronephrosis HEME: -Monitor CBC coags as needed DVT/GI prophylaxis -Lovenox,SCDs,Pepcid -piv's This patient remains critically ill with one or more organ systems which are or may become a threat to life. I have spent in excess of 30 minutes discontinuously in the care and management of this patient. This time is exclusive of procedures, and includes, but is not limited to, evaluation of the patient, review of the medical record, discussions with family, consultants, nursing staff, or respiratory therapy, and documentation in the medical record. Murali Baum MD Feb 16, 2018 10:06
--- NOTE | 2018-02-16 11:39 | RADRPT ---
EXAM DATE/TIME: 02/16/2018 10:17 [facility] COMPARISON: No previous studies available for comparison. INDICATIONS : Hydronephrosis. MEDICAL HISTORY : HTN. Seizures. SURGICAL HISTORY : . Spinal fusion. Knee replacement. ENCOUNTER: Initial ACUITY: 1 day PAIN SCORE: Nonresponsive. LOCATION: Bilateral flank MEASUREMENTS: RIGHT KIDNEY: 12.7 x 6.8 x 6.9 cm LEFT KIDNEY: 14.0 x 5.8 x 5.5 cm FINDINGS: RIGHT KIDNEY: Renal cortex is normal in thickness and echotexture. No hydronephrosis, stone, or mass. LEFT KIDNEY: Renal cortex is normal in thickness and echotexture. No hydronephrosis, stone, or mass. BLADDER: Bladder is decompressed. CONCLUSION: 1. Unremarkable renal ultrasound examination without evidence for obstructive uropathy. Adin Sanchez MD on February 16, 2018 at 11:36 Board Certified Radiologist. This report was verified electronically.
[2018-02-16] MEDS: CEFEPIME INJ 2,000 MG in SODIUM CHLORIDE 0.9% INJ 100 ML IV SCH ×2 (11:54→20:32)
--- NOTE | 2018-02-16 16:57 | HHI.PR ---
Review/Management Diagnosis status epilepticus--resolved on versed and propofol Plan reduce propofol to 20. Diagnosis/Plan: Subjective Subjective Comments No acute events reported EEG is stable with no sz activity on the continous eeg Active Medications Current Medications Medications (Trade) Dose Ordered Sig/Tiera Route Start Time Stop Time Status Last Admin (NS Flush) 2 ml UNSCH PRN IV FLUSH 02/10/18 11:15 Potassium Chloride 100 ml @ 25 mls/hr Q2H PRN IV 02/10/18 13:15 Potassium Chloride 100 ml @ 50 mls/hr Q2H PRN IV 02/10/18 13:15 (K-Lyte Cl Eff) 50 meq UNSCH PRN PO 02/10/18 13:15 02/12/18 09:38 Potassium Chloride 100 ml @ 25 mls/hr UNSCH PRN IV 02/10/18 13:15 Potassium Chloride 100 ml @ 50 mls/hr Q2H PRN IV 02/10/18 13:15 Magnesium Sulfate 4 gm/Sodium Chloride 100 ml @ 50 mls/hr UNSCH PRN IV 02/10/18 13:15 (Mag-Ox) 800 mg UNSCH PRN PO 02/10/18 13:15 Magnesium Sulfate 2 gm/Sodium Chloride 100 ml @ 50 mls/hr UNSCH PRN IV 02/10/18 13:15 (K-Phos) 2,000 mg Q4H PRN PO 02/10/18 13:15 Sodium Phosphate 30 mmol/Sodium Chloride 250 ml @ 42 mls/hr UNSCH PRN IV 02/10/18 13:15 (K-Phos) 2,000 mg UNSCH PRN PO/TUBE 02/10/18 13:15 Potassium Phosphate 30 mmol/ Sodium Chloride 260 ml @ 42 mls/hr UNSCH PRN IV 02/10/18 13:15 (Peridex 0.12% Liq) 15 ml BID@08,20 MT 02/10/18 20:00 02/16/18 07:47 (D50w (Vial) Inj) 25 ml UNSCH PRN IV PUSH 02/10/18 13:15 (NovoLIN R SUPPLEMENTAL SCALE) 1 Q6HR SQ 02/10/18 18:00 02/16/18 11:55 (Duoneb Neb) 1 ampule Q2HR NEB PRN INH 02/10/18 13:15 (Pepcid) 20 mg Q12HR PO 02/10/18 21:00 02/16/18 07:47 (Zofran Inj) 4 mg Q6H PRN IV PUSH 02/10/18 13:15 (Lovenox Inj) 40 mg Q24H SQ 02/10/18 14:00 Future Hold 02/13/18 12:39 Miscellaneous Information 1 Q361D XX 02/10/18 13:15 02/10/18 13:15 (Chlorhexidine 2% Cloth) Taper DAILY@04 TOP 02/11/18 04:00 02/07/19 03:59 02/16/18 03:04 (Chlorhexidine 2% Cloth) 3 pack UNSCH PRN TOP 02/10/18 13:15 (Anahi-Colace) 1 tab BID PO 02/10/18 21:00 02/16/18 07:47 (Milk Of Magnesia Liq) 30 ml Q12H PRN PO 02/10/18 13:15 (Senokot) 17.2 mg Q12H PRN PO 02/10/18 13:15 (Dulcolax Supp) 10 mg DAILY PRN RECTAL 02/10/18 13:15 (Lactulose Liq) 30 ml DAILY PRN PO 02/10/18 13:15 Midazolam HCl 100 ml @ 2 mls/hr TITRATE PRN IV 02/10/18 14:15 02/16/18 03:33 Valproate Sodium 500 mg/Sodium Chloride 105 ml @ 105 mls/hr Q6H IV 02/10/18 19:30 02/16/18 14:49 (Tylenol) 650 mg Q4H PRN PO 02/10/18 21:00 02/15/18 11:39 (Ativan Inj) 2 mg Q1H PRN IV PUSH 02/11/18 15:00 02/14/18 01:48 Propofol 100 ml @ 2.535 mls/ hr TITRATE PRN IV 02/11/18 15:00 02/16/18 12:02 (Trandate Inj) 10 mg Q4H PRN IV PUSH 02/12/18 00:15 02/16/18 12:02 (Prinivil) 20 mg DAILY PO 02/14/18 09:00 02/16/18 07:47 (Duoneb Neb) 1 ampule Q6HR NEB INH 02/14/18 16:00 02/16/18 16:19 Lacosamide 100 mg/ Sodium Chloride 110 ml @ 110 mls/hr Q8H IV 02/15/18 12:00 02/16/18 11:54 Sodium Chloride 38.5 meq/Sterile Water 1,009.625 ml @ 125 mls/hr Q8H5M IV 02/15/18 11:00 02/16/18 14:50 Cefepime HCl 2000 mg/Sodium Chloride 100 ml @ 200 mls/hr Q8H IV 02/16/18 12:00 02/16/18 11:54 (Luminal Inj) 140 mg Q8HR IV 02/16/18 14:00 02/16/18 15:27 Allergies Allergies Coded Allergies fluconazole (Unverified Allergy, Severe, 02/10/18) hydromorphone (Unverified Allergy, Severe, 02/10/18) levetiracetam (Unverified Allergy, Severe, Anaphylaxis, 02/10/18) rifampin (Unverified Allergy, Severe, 02/10/18) phenytoin (Unverified Allergy, Mild, Rash, 02/10/18) Exam I&O / VS Vital Signs Date Time Temp Pulse Resp B/P (MAP) Pulse Ox O2 Delivery O2 Flow Rate FiO2 02/16/18 16:14 94 35 02/16/18 16:00 79 02/16/18 16:00 35 02/16/18 14:00 74 02/16/18 12:00 97.4 78 17 216/91 (132) 99 02/16/18 12:00 35 02/16/18 12:00 78 02/16/18 11:22 100 35 02/16/18 10:00 73 02/16/18 08:39 99 35 02/16/18 08:00 99.1 77 17 197/86 (123) 99 02/16/18 08:00 35 02/16/18 08:00 77 02/16/18 06:00 80 02/16/18 04:39 98 35 02/16/18 04:00 79 02/16/18 04:00 99.8 79 15 134/60 (84) 95 02/16/18 04:00 35 02/16/18 02:00 77 02/16/18 00:00 35 02/16/18 00:00 100.1 86 19 173/77 (109) 95 02/16/18 00:00 86 02/15/18 23:40 96 35 02/15/18 22:00 78 02/15/18 20:10 100 35 02/15/18 20:00 35 02/15/18 20:00 99.4 74 15 205/86 (125) 96 02/15/18 20:00 74 02/15/18 18:00 67 Exam Comments sedated, nonresponseve No tonic clonic activity No focal deficit Objective Micro and Labs Laboratory Tests Test 02/16/18 03:32 White Blood Count 14.1 Red Blood Count 2.55 Hemoglobin 8.4 Hematocrit 25.9 Mean Corpuscular Volume 101.5 Mean Corpuscular Hemoglobin 33.1 Mean Corpuscular Hemoglobin Concent 32.6 Red Cell Distribution Width 16.7 Platelet Count 87 Mean Platelet Volume 10.1 Blood Urea Nitrogen 22 Creatinine 0.60 Random Glucose 177 Calcium Level 8.7 Sodium Level 147 Potassium Level 4.1 Chloride Level 109 Carbon Dioxide Level 31.2 Anion Gap 7 Estimat Glomerular Filtration Rate 99 Valproic Acid (Depakene) Level 54 Phenobarbital Level 7.7 Date/Time Source Procedure Growth Status 02/15/18 12:00 Blood Peripheral Aerobic Blood Culture - Preliminary NO GROWTH IN 1 DAY Resulted 02/15/18 12:00 Blood Peripheral Anaerobic Blood Culture - Preliminary NO GROWTH IN 1 DAY Resulted 02/15/18 16:00 Urine Catheterized Urine Urine Culture - Preliminary NO GROWTH IN 24 HOURS. Resulted Loy Headley MD PhD Feb 16, 2018 16:57
[2018-02-16] MEDS ORDERED: hydrALAZINE HCL 20 MG/ML VIAL IV PRN (19:00)
--- NOTE | 2018-02-16 20:11 | MG ---
cc: Inder Kathleen MD, David J MD INDICATION: A 67-year-old, intubated, on Diprivan, seizure disorder. MEDICATIONS: Phenobarbital, Diprivan, Depakote, Vimpat. INTERPRETATION: Some diffuse alpha rhythms are noted. Sharp waves seen bifrontally. At times over the C3 region seemed to phase reverse slightly. Other times looks like sleep activity where some vertex sharp waves are noted. No major seizures are noted. Photic stimulation is performed without significant posterior driving. IMPRESSION: Some normal sleep activity. Some left frontocentral focal rhythms are noted. No spikes are seen. MD ANA MARIA Cr//karolina , 07:47 PM , 08:04 PM
[2018-02-17] VITALS (25 sets, daily range): BP systolic 130–169; BP diastolic 59–72; PULSE 79–87; RESP 17–21; TEMP 97.9–100; O2SAT 91–100
[2018-02-17] MEDS: VALPROATE INJ 500 MG in SODIUM CHLORIDE 0.9% INJ 100 ML IV SCH ×4 (00:47→19:41)
[2018-02-17] MEDS: INSULIN NovoLIN REGULAR SUPPLEMENTAL SCALE SQ SCH ×5 (00:47→23:38)
[2018-02-17] MEDS: SODIUM CHLORIDE 23.4% INJ 38.5 MEQ in WATER STERILE FOR INJ 1,000 ML IV SCH ×2 (02:38→11:21)
[2018-02-17] MEDS: LACOSAMIDE INJ 100 MG in SODIUM CHLORIDE 0.9% INJ 100 ML IV SCH ×3 (03:12→21:35)
[2018-02-17] MEDS: CHLORHEXIDINE GLUCONATE 2 % 1 PACK (2 CLOTHS) TOP SCH (03:12)
[2018-02-17] MEDS: CEFEPIME INJ 2,000 MG in SODIUM CHLORIDE 0.9% INJ 100 ML IV SCH ×3 (03:14→20:19)
[2018-02-17] MEDS: RESP: ALBUTEROL 2.5 MG/IPRATROPIUM 0.5 MG NEB (SCH) INH ×4 (03:58→23:03)
[2018-02-17] MEDS: PROPOFOL 1000 MG/100 ML INJ 100 ML IV PRN ×2 (04:40→13:33)
[2018-02-17] MEDS: PHENobarbital SOD 130 MG/ML VIAL IV SCH ×3 (05:16→21:57)
[2018-02-17 06:30] LABS: BICARBONATE 29.7 MEQ/L (21.0-32.0); CALCIUM 8.3 MG/DL (8.5-10.1); CREATININE 0.48 MG/DL (0.50-1.00)
[2018-02-17] MEDS: LISINOPRIL 20 MG TAB PO SCH (08:04)
[2018-02-17] MEDS: FAMOTIDINE 20 MG TAB PO SCH ×2 (08:04→20:18)
[2018-02-17] MEDS: DOCUSATE SODIUM 50 MG/SENNA 8.6 MG TAB PO SCH ×2 (08:05→20:18)
--- NOTE | 2018-02-17 08:35 | HHI.CCPN ---
Subjective Remarks/Hospital Course This is a 67-year-old female with a history of poorly controlled seizures who presents with acute altered mental status. She was last seen normal at 3 AM this morning. Initially she was considered to be a stroke alert, however CT noncontrasted brain was negative and her nonfocal appearance was much more suggestive of seizures and stroke, along with the fact that her last seen normal time was significantly delayed. Stat EEG was ordered and she was found to be in status epilepticus. She was emergently intubated due to her poor mental status. I was called immediately down to the bedside for the EEG demonstrating status. At the bedside, I pushed 10 mg of Versed IV 1 and started her on a Versed drip at 10 mg an hour. No information is available from the patient due to her mental status. ROS is unobtainable. The majority of the information I have is obtained from medical record, and in specifically the H&P documented by Dr. Guerra back in October 2017, which is very helpful. In reading through her chart, it appears that when she comes off her Topamax, she goes into status. It appears that she has recently come off Topamax again due to side effects. She is anaphylactically allergic to Keppra and phenytoin, so these are not available to us to use. Versed drip was used successfully in her last admission October 2017, so that is what we have chosen. I have spoken with Dr. Headley who is not only an on-call neurologist but her personal neurologist who sees her frequently, and he agrees with this plan. He also thinks that Vimpat is a good option for seizure control, which I agree with. We will plan to load her with that. 02/11/18: Remains encephalopathy on the vent. No spontaneous movement noted when Versed is held. Will get a repeat EEG today. Wean sedation only if seizure controlled 02/12: Calm now, no convulsive activity. EEG result pending. Midazolam at 10. 02/13: On continuous EEG monitoring, no seizures noted. Versed had been weaned down to 5 mg/h, propofol at 20 mcg/kg/min. Patient does not open eyes or moves spontaneously 02/14: On attempted sedation wean yesterday night patient developed 2 episodes of seizures. Currently no clinical seizures. I discussed with Dr. Headley, will start phenobarbital 90 mg IV every 8 hours. Repeat EEG today. Currently back on 50 mcg/kg/min of propofol, Versed 7 mg per hour 02/15: Remains heavily sedated, started on phenobarbital IV yesterday. Level only 2.8. Will increase dose to 120 mg every 8 hours repeat level in a.m. EEG today pending. No sedation weaning without clearance from Dr. Headley. EEG yesterday showed some left-sided phase reversal. Leukocytosis with bandemia noted, will re culture 02/16: Pt had persistent epileptiform activity on eeg 02/[address] Headley. No sedation vacation until repeat EEG shows resolution. I have updated about this at the bedside. Repeat cultures pending at this time. Check renal ultrasound as the patient had recent hydronephrosis, ureteral stent. Patient remains critically ill in severely encephalopathic due to uncontrolled seizures 02/17: remains deeply sedated for status epilepticus. phenobarb level 55.[address] Headley managing anti-epileptics: very difficult to control seizures as well as difficult medication titration given multiple anaphylactic allergies to anticonvulsants. Objective Vital Signs Date Time Temp Pulse Resp B/P (MAP) Pulse Ox O2 Delivery O2 Flow Rate FiO2 02/17/18 06:00 80 02/17/18 05:49 97 50 02/17/18 04:00 97.9 21 169/70 (103) Intake and Output 02/17/18 02/17/18 02/18/18 08:00 16:00 00:00 Intake Total 2001.625 ml Output Total 1400 ml Balance 601.625 ml Result Diagram: 02/16/18 0332 02/17/18 0528 Imaging Last Impressions Head CT 02/10/18 1115 Signed Impressions: Service Date/Time: Saturday, February 10, 2018 12:19 - CONCLUSION: Stable negative noncontrast CT. Mustapha Grossman MD Chest X-Ray 02/10/18 1115 Signed Impressions: Service Date/Time: Saturday, February 10, 2018 11:34 - CONCLUSION: 1. Endotracheal tube in place. 2. Interval placement of nasogastric tube. 3. No acute cardiac pulmonary disease. Mustapha Grossman MD Objective Remarks GENERAL: Middle-aged female, lying in bed, heavily sedated, intubated HEENT: Normocephalic. Atraumatic. Pupils 2mm, equal, round, reactive, conjugate. Mucous membranes are moist. NECK: Trachea is midline. Orally intubated. CHEST: PRVC. equal chest rise. prvc fio2 40%. spo2 99%. CARDIOVASCULAR: normal rate, regular rhythm. sinus by tele. ABDOMEN: Soft, nontender, nondistended. No guarding. MUSCULOSKELETAL: Pulses 2+. No peripheral edema. NEUROLOGICAL: Intubated sedated with Versed, propofol. JAIR. No withdrawal while on versed and propofol. No spontaneous eye opening or movements. (Unable to wean sedation) A/P Assessment and Plan Assessment: 67yF with poorly controlled seizure disorder who presents in status epilepticus. Remains critically ill. At Dr. Headley's request, for seizure control , was deeply sedated on versed drip and monitor EEG. Continue Vimpat and Valproic acid. frequent neuro checks. rechecking phenobarb level as it may not be a true trough. No sedation medication or vent weaning until seizures well- controlled remains critical. will f/u with Dr. Headley for ongoing anticonvulsant titration. Active Problems: Status Epilepticus Uncontrolled seizures Acute encephalopathy Acute hypoxic and hypercarbic respiratory failure UTI Hypernatremia- resolving Lactic acidosis- secondary to status Recent ureteral stent for hydronephrosis Plan: Neuro: -Continue versed drip, propofol drip, no weaning due to poorly controlled seizure -EEG 02/15/18 showed persistent seizure activity -Continue valproic acid, Vimpat. On phenobarbital 140 mg IV every 8 hours. Level 7.4-->55 (may not be accurate, redrawing). -EEG repeat 02/12 no active seizures. 4/4 probable phase reversal noted on left side. 4/5 persistent seizures -No sedation vacation until cleared by Dr. Headley -Continue ICU care, frequent neuro checks Resp: -No weaning of mechanical ventilation until status improves, wean fio2 for goal spo2 > 90% -Hob elevated, vent bundle, nebs, telemetry, Continue Ardon -Sputum culture GI -OG tube and tube feeds, free water 200 mL every 6 hours : -d/c free water replacement. -daily BMP. Sodium slowly improving -ICU electrolyte protocol. Keep Mag>2 ID: -UTI with E. coli -Leukocytosis and bandemia, repeat panculture -cefepime 2 g IV every 8 hours -Renal ultrasound to rule out hydronephrosis HEME: -Monitor CBC coags as needed DVT/GI prophylaxis -Lovenox,SCDs,Pepcid -piv's This patient remains critically ill with one or more organ systems which are or may become a threat to life. I have spent in excess of 36 minutes discontinuously in the care and management of this patient. This time is exclusive of procedures, and includes, but is not limited to, evaluation of the patient, review of the medical record, discussions with family, consultants, nursing staff, or respiratory therapy, and documentation in the medical record. Joseph Mei MD Feb 17, 2018 08:35
[2018-02-17] MEDS: CHLORHEXIDINE 0.12% (ORAL KIT) 15 ML CUP MT SCH ×2 (09:13→20:19)
[2018-02-17 09:42] LABS: HEMATOCRIT 27.7 % (35.0-46.0); HEMOGLOBIN 9.2 GM/DL (11.6-15.3); MEAN CELL VOLUME 100.9 FL (80.0-100.0); MEAN CORPUSCULAR HEMOGLOBIN 33.5 PG (27.0-34.0); MEAN CORPUSCULAR HGB CONC 33.3 % (32.0-36.0); MEAN PLATELET VOLUME 9.4 FL (7.0-11.0); PLATELET COUNT 123 TH/MM3 (150-450); RED BLOOD COUNT 2.75 MIL/MM3 (4.00-5.30); RED CELL DISTRIBUTION WIDTH 16.2 % (11.6-17.2)
[2018-02-17] MEDS: MIDAZOLAM 100 MG/100 ML INJ 100 ML IV PRN (13:33)
[2018-02-17] MEDS ORDERED: FUROSEMIDE 20 MG/2 ML VIAL IV PUSH ONE (14:30)
--- NOTE | 2018-02-17 14:57 | HHI.PR ---
Subjective Remarks no twitching reported continuous eeg on some bilat and occ left wavevorms diminished amp t/o vpa 53 obarb 12 vimpat Objective Vital Signs Date Time Temp Pulse Resp B/P (MAP) Pulse Ox O2 Delivery O2 Flow Rate FiO2 02/17/18 11:59 97 50 02/17/18 08:45 95 50 02/17/18 06:00 80 02/17/18 05:49 97 50 02/17/18 04:00 97.9 83 21 169/70 (103) 93 02/17/18 04:00 82 02/17/18 04:00 50 02/17/18 03:58 93 50 02/17/18 03:30 84 17 92 02/17/18 03:00 80 20 156/69 (98) 92 02/17/18 02:30 81 20 91 02/17/18 02:00 84 02/17/18 02:00 80 20 160/69 (99) 92 02/17/18 01:30 80 20 92 02/17/18 01:11 92 35 02/17/18 01:00 80 20 168/72 (104) 92 02/17/18 00:30 81 19 93 02/17/18 00:00 35 02/17/18 00:00 80 02/17/18 00:00 99.0 79 19 167/72 (103) 92 02/16/18 23:30 75 18 93 02/16/18 23:00 78 25 191/94 (126) 92 02/16/18 22:30 78 18 92 02/16/18 22:00 80 20 156/70 (98) 92 02/16/18 22:00 79 02/16/18 21:30 80 18 91 02/16/18 21:00 95 35 02/16/18 21:00 79 18 173/73 (106) 92 02/16/18 20:30 77 18 168/72 (104) 93 02/16/18 20:00 35 02/16/18 20:00 78 02/16/18 20:00 99.9 78 18 181/76 (111) 93 02/16/18 19:30 77 17 160/70 (100) 93 02/16/18 19:00 74 18 159/69 (99) 93 02/16/18 18:30 74 19 168/73 (104) 93 02/16/18 18:00 75 02/16/18 18:00 75 18 168/74 (105) 93 02/16/18 17:41 75 18 166/71 (102) 93 02/16/18 17:30 75 17 171/75 (107) 93 02/16/18 17:00 79 20 173/72 (105) 93 02/16/18 16:30 78 18 170/71 (104) 92 02/16/18 16:14 94 35 02/16/18 16:00 79 02/16/18 16:00 35 02/16/18 16:00 99.9 79 20 160/69 (99) 92 I/O 02/16/18 02/16/18 02/16/18 02/17/18 02/17/18 02/17/18 07:00 15:00 23:00 07:00 15:00 23:00 Intake Total 1959 ml 1580 ml 2001.625 ml 1000 ml Output Total 1400 ml 1200 ml 1400 ml Balance 559 ml 380 ml 601.625 ml 1000 ml Intake Oral 0 ml IV Total 1205 ml 830 ml 1324.625 ml 1000 ml Tube Feeding 694 ml 650 ml 627 ml Other 60 ml 100 ml 50 ml Output Urine Total 1400 ml 1200 ml 1400 ml Tube Feeding Residual Discard 0 ml # Bowel Movements 0 0 Result Diagram: 02/17/18 0909 02/17/18 0528 Objective Remarks fuly sedated bullous areas mult r arm pupil= Assessment and Plan Assessment and Plan imp taper dip will obs for any clinical sz mri read as neg long hx of Inder Salinas MD Feb 17, 2018 14:57
[2018-02-17] MEDS ORDERED: SODIUM CHLORIDE 0.9% FLUSH 10 ML FLUSH IV FLUSH PRN (17:45)
[2018-02-17] MEDS: FREE WATER G-TUBE SCH ×2 (20:04→23:38)
[2018-02-18] VITALS (16 sets, daily range): BP systolic 117–183; BP diastolic 65–76; PULSE 86–127; RESP 15–17; TEMP 98.6–101.3; O2SAT 94–100
[2018-02-18] MEDS: VALPROATE INJ 500 MG in SODIUM CHLORIDE 0.9% INJ 100 ML IV SCH ×4 (00:59→19:17)
[2018-02-18] MEDS: FREE WATER G-TUBE SCH ×2 (03:09→08:00)
[2018-02-18] MEDS: CEFEPIME INJ 2,000 MG in SODIUM CHLORIDE 0.9% INJ 100 ML IV SCH (03:09)
[2018-02-18] MEDS: CHLORHEXIDINE GLUCONATE 2 % 1 PACK (2 CLOTHS) TOP SCH (04:03)
[2018-02-18] MEDS: LACOSAMIDE INJ 100 MG in SODIUM CHLORIDE 0.9% INJ 100 ML IV SCH ×3 (04:03→20:26)
[2018-02-18] MEDS: RESP: ALBUTEROL 2.5 MG/IPRATROPIUM 0.5 MG NEB (SCH) INH ×5 (04:15→20:18)
[2018-02-18] MEDS: INSULIN NovoLIN REGULAR SUPPLEMENTAL SCALE SQ SCH ×3 (05:33→18:00)
[2018-02-18] MEDS: PHENobarbital SOD 130 MG/ML VIAL IV SCH ×3 (05:50→21:32)
[2018-02-18] MEDS: MIDAZOLAM 100 MG/100 ML INJ 100 ML IV PRN (06:45)
--- NOTE | 2018-02-18 08:23 | HHI.PR ---
Subjective Remarks no twitching reported continuous eeg on some bilat and occ left wavevorms diminished amp t/o no change looks pretty good vpa 53 pending today obarb 15 vimpat Objective Vital Signs Date Time Temp Pulse Resp B/P (MAP) Pulse Ox O2 Delivery O2 Flow Rate FiO2 02/18/18 06:00 86 02/18/18 04:15 100 40 02/18/18 04:00 90 02/18/18 04:00 99.4 90 16 153/67 (95) 100 02/18/18 04:00 50 02/18/18 02:00 89 02/18/18 00:00 50 02/18/18 00:00 99.0 87 16 157/70 (99) 100 02/18/18 00:00 87 02/17/18 23:04 100 50 02/17/18 22:00 86 02/17/18 20:00 87 02/17/18 20:00 99.4 87 18 141/63 (89) 100 02/17/18 20:00 50 02/17/18 18:00 86 02/17/18 17:40 97 50 02/17/18 16:00 50 02/17/18 16:00 85 02/17/18 16:00 100.0 85 18 130/59 (82) 99 02/17/18 14:00 86 02/17/18 12:00 85 02/17/18 12:00 50 02/17/18 12:00 99.4 85 17 150/65 (93) 99 02/17/18 11:59 97 50 02/17/18 10:00 86 02/17/18 08:45 95 50 I/O 02/17/18 02/17/18 02/17/18 02/18/18 02/18/18 02/18/18 07:00 15:00 23:00 07:00 15:00 23:00 Intake Total 2001.625 ml 1610 ml 1255 ml 917 ml Output Total 1400 ml 2600 ml 800 ml Balance 601.625 ml 1610 ml -1345 ml 117 ml Intake Oral 0 ml IV Total 1324.625 ml 1610 ml 411 ml 315 ml Tube Feeding 627 ml 744 ml 542 ml Other 50 ml 100 ml 60 ml Output Urine Total 1400 ml 2600 ml 800 ml # Bowel Movements 0 0 Result Diagram: 02/17/18 0909 02/17/18 0528 Objective Remarks fuly sedated bullous areas mult r arm no change Assessment and Plan Assessment and Plan imp taper dip to 5 and if by noon eegok dc it will obs for any clinical sz mri read as neg long hx of sz vpa pend dr bui in am Inder Kathleen MD Feb 18, 2018 08:23
[2018-02-18] MEDS: LISINOPRIL 20 MG TAB PO SCH (08:32)
[2018-02-18] MEDS: FAMOTIDINE 20 MG TAB PO SCH (08:32)
[2018-02-18] MEDS: CHLORHEXIDINE 0.12% (ORAL KIT) 15 ML CUP MT SCH ×2 (08:32→20:27)
[2018-02-18] MEDS: DOCUSATE SODIUM 50 MG/SENNA 8.6 MG TAB PO SCH ×2 (08:32→20:26)
[2018-02-18] MEDS: SODIUM CHLORIDE 0.9% FLUSH 10 ML FLUSH IV FLUSH SCH (09:00)
[2018-02-18] MEDS: PROPOFOL 1000 MG/100 ML INJ 100 ML IV PRN ×2 (09:10→22:57)
--- NOTE | 2018-02-18 09:18 | MG ---
cc: Inder Kathleen MD [facility]: [id number] INDICATION : The patient is intubated. Some focal left rhythms in the past. [place], [place], [place] Jesus. DESCRIPTION: Some bifrontal low-amplitude not particularly sharp alpha and beta rhythms are noted, although they are somewhat regular, occurring about every 2 seconds or so throughout much of the recording. No spikes are noted. Photic stimulation is performed without significant posterior driving. IMPRESSION: Some bifrontal activity, not particularly epileptiform at this time but fairly regular, could indicate some medication suppressed PLEDs. Clinical correlation is needed. Inder Kathleen MD DJM/TL , 08:13 AM , 09:16 AM
[2018-02-18] MEDS ORDERED: hydrALAZINE HCL 20 MG/ML VIAL IV PRN (09:30)
[2018-02-18] MEDS ORDERED: RESP: ALBUTEROL 2.5 MG/3 ML NEB (PRN) NEB (09:30)
--- NOTE | 2018-02-18 09:33 | HHI.CCPN ---
Subjective Remarks/Hospital Course This is a 67-year-old female with a history of poorly controlled seizures who presents with acute altered mental status. She was last seen normal at 3 AM this morning. Initially she was considered to be a stroke alert, however CT noncontrasted brain was negative and her nonfocal appearance was much more suggestive of seizures and stroke, along with the fact that her last seen normal time was significantly delayed. Stat EEG was ordered and she was found to be in status epilepticus. She was emergently intubated due to her poor mental status. I was called immediately down to the bedside for the EEG demonstrating status. At the bedside, I pushed 10 mg of Versed IV 1 and started her on a Versed drip at 10 mg an hour. No information is available from the patient due to her mental status. ROS is unobtainable. The majority of the information I have is obtained from medical record, and in specifically the H&P documented by Dr. Guerra back in October 2017, which is very helpful. In reading through her chart, it appears that when she comes off her Topamax, she goes into status. It appears that she has recently come off Topamax again due to side effects. She is anaphylactically allergic to Keppra and phenytoin, so these are not available to us to use. Versed drip was used successfully in her last admission October 2017, so that is what we have chosen. I have spoken with Dr. Headley who is not only an on-call neurologist but her personal neurologist who sees her frequently, and he agrees with this plan. He also thinks that Vimpat is a good option for seizure control, which I agree with. We will plan to load her with that. 02/11/18: Remains encephalopathy on the vent. No spontaneous movement noted when Versed is held. Will get a repeat EEG today. Wean sedation only if seizure controlled 02/12: Calm now, no convulsive activity. EEG result pending. Midazolam at 10. 02/13: On continuous EEG monitoring, no seizures noted. Versed had been weaned down to 5 mg/h, propofol at 20 mcg/kg/min. Patient does not open eyes or moves spontaneously 02/14: On attempted sedation wean yesterday night patient developed 2 episodes of seizures. Currently no clinical seizures. I discussed with Dr. Headley, will start phenobarbital 90 mg IV every 8 hours. Repeat EEG today. Currently back on 50 mcg/kg/min of propofol, Versed 7 mg per hour 02/15: Remains heavily sedated, started on phenobarbital IV yesterday. Level only 2.8. Will increase dose to 120 mg every 8 hours repeat level in a.m. EEG today pending. No sedation weaning without clearance from Dr. Headley. EEG yesterday showed some left-sided phase reversal. Leukocytosis with bandemia noted, will re culture 02/16: Pt had persistent epileptiform activity on eeg 02/[address] Headley. No sedation vacation until repeat EEG shows resolution. I have updated about this at the bedside. Repeat cultures pending at this time. Check renal ultrasound as the patient had recent hydronephrosis, ureteral stent. Patient remains critically ill in severely encephalopathic due to uncontrolled seizures 02/17: remains deeply sedated for status epilepticus. phenobarb level 55.[address] Headley managing anti-epileptics: very difficult to control seizures as well as difficult medication titration given multiple anaphylactic allergies to anticonvulsants. Subjective 02/18: T-max 100. Currently 99.4. Tolerating tube feeding. No bowel movement. 4 days. Remains sedated on midazolam and propofol drips Objective Vital Signs Date Time Temp Pulse Resp B/P (MAP) Pulse Ox O2 Delivery O2 Flow Rate FiO2 02/18/18 09:05 98 40 02/18/18 06:00 86 02/18/18 04:00 99.4 16 153/67 (95) Intake and Output 02/18/18 02/18/18 02/19/18 08:00 16:00 00:00 Intake Total 917 ml Output Total 800 ml Balance 117 ml Result Diagram: 02/17/18 0909 02/17/18 0528 Other Results Microbiology Date/Time Source Procedure Growth Status 02/15/18 16:00 Urine Catheterized Urine Urine Culture - Final NO GROWTH IN 48 HOURS. Complete Imaging Last Impressions Renal Ultrasound 02/16/18 0000 Signed Impressions: Service Date/Time: Friday, February 16, 2018 10:17 - CONCLUSION: 1. Unremarkable renal ultrasound examination without evidence for obstructive uropathy. Adin Sanchez MD Chest X-Ray 02/15/18 0600 Signed Impressions: Service Date/Time: February 03:49 - CONCLUSION: Interval worsening in aeration Bautista Paul MD Head CT 02/10/18 1115 Signed Impressions: Service Date/Time: Saturday, February 10, 2018 12:19 - CONCLUSION: Stable negative noncontrast CT. Mustapha Grossman MD Brain MRI 02/10/18 0000 Signed Impressions: Service Date/Time: Saturday, February 10, 2018 16:30 - CONCLUSION: 1. Stable appearance with no acute hemorrhage, mass or infarction. 2. Moderate atrophic change and stable mild ventricular prominence. Mustapha Grossman MD Objective Remarks GENERAL: 59-year-old female currently orotracheally intubated HEENT: Normocephalic. Atraumatic. Pupils 2mm, equal, round, reactive, conjugate. Mucous membranes are moist and pink.. NECK: Trachea is midline. Orally intubated. CHEST: Essentially clear to auscultation bilaterally without wheezes rales rhonchi CARDIOVASCULAR: RRR. S1, S2 no strip without murmur ABDOMEN: Soft, nontender, nondistended. No guarding. MUSCULOSKELETAL: Pulses 2+. No peripheral edema. NEUROLOGICAL: . No withdrawal while on midazolam and propofol. No spontaneous eye opening or movements. (Unable to wean sedation) positive gag. Positive cough. Positive corneal reflex. SKIN: Bullous/clear areas bilateral upper extremities right greater than left. Urinary Catheter: Yes Assessment to: Continue Ardon insert reason: Prolonged Immobilization Vascular Central Line Catheter: Yes Assessment to: Continue Date of Insertion: Feb 17, 2018 Line: PICC Side: Left Location: Antecubital A/P Assessment and Plan Neuro/Psych: Status epilepticus Elevated IOP Acute encephalopathy Currently on midazolam drip at 6 mg an hour, propofol drip at 5 mcg/kg/min for sedation while intubated Continue valproate 500 mg IV every 6 hours. A.m. level pending Continue phenobarbital 140 mg IV every 8 hours. Level currently 15 Continue lacosamide 100 mg IV every 8 hours. MRI brain 02/10 revealed mild ventricular enlargement. Atrophy. EEG brain 02/18 revealed suppressed platelets. EEG brain 02/16 revealed left frontal central spiking. -EEG 02/15/18 showed persistent seizure activity 4/4 probable phase reversal noted on left side. 4/5 persistent seizures -EEG repeat 02/12 no active seizures. -No sedation vacation until cleared by Dr. Headley -Continue ICU care, frequent neuro checks At home on valproic acid 5 mg 3 times daily with 250 mg at night Acetaminophen 650 mg every 6 hours as needed fever Continue bimatoprost 0.01% 1 drop each eye at night Resp: Acute respiratory failure/hypoxic and hypercapnic ACV 15/500/5/40 Ventilator bundle Albuterol/ipratropium aerosols every 6 hours with albuterol aerosols every 2 hours as needed dyspnea Continue montelukast 10 mg by tube daily Spontaneous breathing trials when okay with neurology Follow chest x-ray in a.m. 02/19 CV: Hypertension Dyslipidemia Continue lisinopril 20 mg p.o. daily for hypertension As needed hydralazine/labetalol to keep systolic blood pressure less than 170 Continue aspirin 81 mg p.o. daily Continue ezetimibe 10 mg p.o. daily for dyslipidemia GI OG tube and tube feeds with vital high-protein goal 55 cc/h per nutrition's recommendations Lansoprazole for GI prophylaxis Docusate sodium/senna 1 tablet twice daily for bowel regimen Add polyethylene glycol 17 g twice daily lactulose 30 cc 1 today. Continue free water 200 mL every 6 hours : Overactive bladder Recent ureteral stent for hydronephrosis Currently on free water 200 cc every 6 hours -daily BMP. Sodium slowly improving -ICU electrolyte protocol. Keep Mag>2 Renal ultrasound revealed no hydronephrosis 02/16 Currently holding oxybutynin 5 mg daily ID: -UTI with E. coli 02/10 Will discontinue cefepime 2 g IV every 8 hours with status epilepticus. No current signs of infection. Pertinent cultures 02/15 -UA -no growth 02/15 blood cultures 2 -no growth 02/10 -UA -E. coli -Renal ultrasound to rule out hydronephrosis HEME: Leukocytosis Macrocytic anemia Thrombocytopenia -Monitor CBC. Follow trend Endo Mild hyperglycemia Hypothyroidism Sliding scale insulin with NovoLog with Accu-Cheks to maintain euglycemia/low regimen every 6 hours Continue levothyroxine 75 mcg by tube daily recheck TSH Access -Left antecubital PICC line placed 02/17/dual-lumen Prophylaxis -GI -lansoprazole -DVT -SCD/enoxaparin Level 2 follow-up Tonny Lomeli MD Feb 18, 2018 09:33
[2018-02-18] MEDS ORDERED: RESP: ALBUTEROL 2.5 MG/IPRATROPIUM 0.5 MG NEB (SCH) NEB (10:00)
[2018-02-18 10:43] LABS: HEMATOCRIT 27.7 % (35.0-46.0); HEMOGLOBIN 9.1 GM/DL (11.6-15.3); MEAN CELL VOLUME 100.4 FL (80.0-100.0); MEAN CORPUSCULAR HEMOGLOBIN 33.1 PG (27.0-34.0); MEAN PLATELET VOLUME 9.2 FL (7.0-11.0); PLATELET COUNT 167 TH/MM3 (150-450); RED BLOOD COUNT 2.76 MIL/MM3 (4.00-5.30); RED CELL DISTRIBUTION WIDTH 16.2 % (11.6-17.2); WHITE BLOOD COUNT 14.8 TH/MM3 (4.0-11.0)
[2018-02-18] MEDS ORDERED: LACTULOSE SYRUP 20 GM/30 ML CUP PO ONE (11:00)
[2018-02-18 11:09] LABS: BICARBONATE 31.1 MEQ/L (21.0-32.0); CALCIUM 8.6 MG/DL (8.5-10.1); CREATININE 0.5 MG/DL (0.50-1.00); MAGNESIUM 2.2 MG/DL (1.5-2.5)
[2018-02-18] MEDS ORDERED: MINERAL OIL LIQUID 30 ML CUP PO ONE (12:00)
[2018-02-18] MEDS: POLYETHYLENE GLYCOL 17 GM PKG PO SCH ×2 (13:05→20:26)
[2018-02-18] MEDS ORDERED: NITROGLYCERIN 2% OINT 1 GM PACKET TOPICAL PRN (13:15)
[2018-02-18] MEDS ORDERED: VANCOMYCIN INJ 1,000 MG in SODIUM CHLOR 0.9% 250 ML INJ 250 ML IV ONE (13:15)
[2018-02-18] MEDS ORDERED: MINERAL OIL EMULSION 55% PO ONE (13:30)
[2018-02-18] MEDS: ARTIFICIAL TEARS OPTH SOLN 15 ML BTL EACH EYE SCH ×2 (14:00→21:32)
[2018-02-18 15:28] LABS: AMORPHOUS SEDIMENT, URINE FEW; BACTERIA, URINE FEW /hpf; BILIRUBIN, URINE NEG (NEG); BLOOD, URINE TRACE (NEG); GLUCOSE,URINE NEG (NEG); KETONE, URINE NEG (NEG); MUCUS URINE FEW /lpf (OCC); NITRITE,URINE NEG (NEG); URINE COLOR YELLOW (YELLW/STRAW); URINE LEUKOCYTE ESTERASE TRACE (NEG)
[2018-02-18] MEDS ORDERED: PHENYLEPHRINE INJ 160 MG in DEXTROSE 5% IN WATE 500 ML INJ 484 ML IV PRN ×2 (18:45)
[2018-02-18] MEDS ORDERED: TERBUTALINE INJ 1 MG/ML AMP SQ PRN (18:45)
[2018-02-18] MEDS ORDERED: PHENYLEPHRINE INJ 160 MG in SODIUM CHLORID 0.9% 500 ML INJ 484 ML IV PRN (20:00)
[2018-02-18] MEDS: MONTELUKAST SODIUM 10 MG TAB PO SCH (20:26)
[2018-02-18] MEDS: LATANOPROST 0.005% OPHT SOLN 2.5 ML BTL EACH EYE SCH (20:26)
[2018-02-18] MEDS: ACETAMINOPHEN 650 MG/20.3 ML UDC PO PRN (21:32)
[2018-02-19] VITALS (18 sets, daily range): BP systolic 101–155; BP diastolic 50–68; PULSE 73–105; RESP 16–17; TEMP 97.8–102; O2SAT 93–100
[2018-02-19] MEDS: INSULIN NovoLIN REGULAR SUPPLEMENTAL SCALE SQ SCH ×4 (00:03→17:07)
[2018-02-19] MEDS: RESP: ALBUTEROL 2.5 MG/3 ML NEB (PRN) NEB (00:33)
[2018-02-19] MEDS: MIDAZOLAM 100 MG/100 ML INJ 100 ML IV PRN ×2 (00:40→16:40)
[2018-02-19] MEDS: VALPROATE INJ 500 MG in SODIUM CHLORIDE 0.9% INJ 100 ML IV SCH ×5 (00:42→20:50)
[2018-02-19 04:17] LABS: AUTOMATED NEUTROPHIL # 24.8 TH/MM3 (1.8-7.7); BASOPHIL % 0.1 % (0.0-2.0); EOSINOPHIL # 0.1 TH/MM3 (0-0.4); EOSINOPHIL % 0.2 % (0.0-4.0); HEMOGLOBIN 9.1 GM/DL (11.6-15.3); LYMPH % 3.6 % (9.0-44.0); MEAN CELL VOLUME 102.2 FL (80.0-100.0); MEAN CORPUSCULAR HEMOGLOBIN 33.4 PG (27.0-34.0); MEAN CORPUSCULAR HGB CONC 32.7 % (32.0-36.0); MEAN PLATELET VOLUME 9.8 FL (7.0-11.0); MONO % 6.6 % (0.0-8.0); MONOCYTE # 1.8 TH/MM3 (0-0.9); NEUT % 89.5 % (16.0-70.0); PLATELET COUNT 215 TH/MM3 (150-450); RED BLOOD COUNT 2.74 MIL/MM3 (4.00-5.30); RED CELL DISTRIBUTION WIDTH 16.4 % (11.6-17.2); WHITE BLOOD COUNT 27.7 TH/MM3 (4.0-11.0)
[2018-02-19] MEDS: CHLORHEXIDINE GLUCONATE 2 % 1 PACK (2 CLOTHS) TOP SCH (04:20)
[2018-02-19] MEDS: LACOSAMIDE INJ 100 MG in SODIUM CHLORIDE 0.9% INJ 100 ML IV SCH ×3 (04:20→20:51)
[2018-02-19] MEDS: RESP: ALBUTEROL 2.5 MG/IPRATROPIUM 0.5 MG NEB (SCH) INH ×4 (04:40→21:51)
[2018-02-19 04:49] LABS: ALBUMIN 1.2 GM/DL (3.4-5.0); ALKALINE PHOSPHATASE 97 U/L (45-117); ALT (GPT) 19 U/L (10-53); AST (GOT) 55 U/L (15-37); BICARBONATE 29.5 MEQ/L (21.0-32.0); BLOOD UREA NITROGEN 37 MG/DL (7-18); CHLORIDE 104 MEQ/L (98-107); CREATININE 0.86 MG/DL (0.50-1.00); FREE T3 0.51 PG/ML (2.18-3.98); GLOMERULAR FILTRATION RATE 66 ML/MIN (>89); GLUCOSE,RANDOM 182 MG/DL (74-106); MAGNESIUM 2.3 MG/DL (1.5-2.5); PHOSPHORUS 3.3 MG/DL (2.5-4.9); SODIUM (NA) 143 MEQ/L (136-145); TOTAL BILIRUBIN ADULT 0.3 MG/DL (0.2-1.0); TOTAL PROTEIN 4.9 GM/DL (6.4-8.2)
--- NOTE | 2018-02-19 05:27 | RADRPT ---
EXAM DATE/TIME: 02/19/2018 03:03 [place] COMPARISON: CHEST SINGLE AP, February 15, 2018, 3:49. INDICATIONS : Shortness of breath,possible pulmonary disease. MEDICAL HISTORY : Arthritis. Hypertension Seizures SURGICAL HISTORY : Hysterectomy. section. Total knee replacement, left. Total knee replacement, right ENCOUNTER: Subsequent ACUITY: 1 week PAIN SCORE: Non-responsive. LOCATION: Bilateral chest FINDINGS: A single view of the chest demonstrates a small pleural effusions and bibasilar densities. Heart norm al in size. Endotracheal tube, nasogastric tube stable position. A left-sided PICC line with tip in S VC noted. Scoliotic rods are seen. Osseous structures are intact. CONCLUSION: 1. Small pleural effusions and bibasilar densities again noted. Slightly more prominent on current st udy. Kashif Forrest MD on February 19, 2018 at 5:24 Board Certified Radiologist. This report was verified electronically.
[2018-02-19] MEDS: PHENobarbital SOD 130 MG/ML VIAL IV SCH ×3 (05:41→20:52)
[2018-02-19] MEDS: ARTIFICIAL TEARS OPTH SOLN 15 ML BTL EACH EYE SCH ×3 (05:42→20:53)
[2018-02-19] MEDS: ENOXAPARIN SODIUM 40 MG/0.4 ML SYRINGE SQ SCH (05:42)
[2018-02-19] MEDS ORDERED: LEVOTHYROXINE SODIUM 75 MCG TAB PO SCH (06:00)
[2018-02-19 07:16] LABS: BANDS 56 % (0-6); LYMPHOCYTES 3 % (9-44); METAMYELOCYTES 4 % (0-1); MONOCYTES 6 % (0-8); MYELOCYTES 1 % (0-0); NEUTROPHIL # MANUAL DIFF 25.2 TH/MM3 (1.8-7.7); POLYS (SEG NEUTROPHILS) 30 % (16-70)
[2018-02-19 07:17] LABS: TOXIC GRANULATION 2+ (NORMAL); TOXIC VACUOLATION PRESENT (NONE SEEN)
[2018-02-19] MEDS: PROPOFOL 1000 MG/100 ML INJ 100 ML IV PRN ×2 (08:50→17:02)
[2018-02-19] MEDS: LACTULOSE SYRUP 20 GM/30 ML CUP PO SCH (08:52)
[2018-02-19] MEDS: POLYETHYLENE GLYCOL 17 GM PKG PO SCH ×2 (08:52→20:51)
[2018-02-19] MEDS: LANSOPRAZOLE SOLUTAB 30 MG TAB NG SCH (08:54)
[2018-02-19] MEDS: DOCUSATE SODIUM 50 MG/SENNA 8.6 MG TAB PO SCH ×2 (08:54→20:51)
[2018-02-19] MEDS: SODIUM CHLORIDE 0.9% FLUSH 10 ML FLUSH IV FLUSH SCH (08:55)
[2018-02-19] MEDS: CHLORHEXIDINE 0.12% (ORAL KIT) 15 ML CUP MT SCH ×2 (08:56→20:53)
[2018-02-19] MEDS ORDERED: LISINOPRIL 20 MG TAB PO SCH (09:00)
--- NOTE | 2018-02-19 09:50 | HHI.CCPN ---
Subjective Remarks/Hospital Course This is a 67-year-old female with a history of poorly controlled seizures who presents with acute altered mental status. She was last seen normal at 3 AM this morning. Initially she was considered to be a stroke alert, however CT noncontrasted brain was negative and her nonfocal appearance was much more suggestive of seizures and stroke, along with the fact that her last seen normal time was significantly delayed. Stat EEG was ordered and she was found to be in status epilepticus. She was emergently intubated due to her poor mental status. I was called immediately down to the bedside for the EEG demonstrating status. At the bedside, I pushed 10 mg of Versed IV 1 and started her on a Versed drip at 10 mg an hour. No information is available from the patient due to her mental status. ROS is unobtainable. The majority of the information I have is obtained from medical record, and in specifically the H&P documented by Dr. Guerra back in October 2017, which is very helpful. In reading through her chart, it appears that when she comes off her Topamax, she goes into status. It appears that she has recently come off Topamax again due to side effects. She is anaphylactically allergic to Keppra and phenytoin, so these are not available to us to use. Versed drip was used successfully in her last admission October 2017, so that is what we have chosen. I have spoken with Dr. Headley who is not only an on-call neurologist but her personal neurologist who sees her frequently, and he agrees with this plan. He also thinks that Vimpat is a good option for seizure control, which I agree with. We will plan to load her with that. 02/11/18: Remains encephalopathy on the vent. No spontaneous movement noted when Versed is held. Will get a repeat EEG today. Wean sedation only if seizure controlled 02/12: Calm now, no convulsive activity. EEG result pending. Midazolam at 10. 02/13: On continuous EEG monitoring, no seizures noted. Versed had been weaned down to 5 mg/h, propofol at 20 mcg/kg/min. Patient does not open eyes or moves spontaneously 02/14: On attempted sedation wean yesterday night patient developed 2 episodes of seizures. Currently no clinical seizures. I discussed with Dr. Headley, will start phenobarbital 90 mg IV every 8 hours. Repeat EEG today. Currently back on 50 mcg/kg/min of propofol, Versed 7 mg per hour 02/15: Remains heavily sedated, started on phenobarbital IV yesterday. Level only 2.8. Will increase dose to 120 mg every 8 hours repeat level in a.m. EEG today pending. No sedation weaning without clearance from Dr. Headley. EEG yesterday showed some left-sided phase reversal. Leukocytosis with bandemia noted, will re culture 02/16: Pt had persistent epileptiform activity on eeg 02/[address] Headley. No sedation vacation until repeat EEG shows resolution. I have updated about this at the bedside. Repeat cultures pending at this time. Check renal ultrasound as the patient had recent hydronephrosis, ureteral stent. Patient remains critically ill in severely encephalopathic due to uncontrolled seizures 02/17: remains deeply sedated for status epilepticus. phenobarb level 55.[address] Headley managing anti-epileptics: very difficult to control seizures as well as difficult medication titration given multiple anaphylactic allergies to anticonvulsants. 02/18: T-max 100. Currently 99.4. Tolerating tube feeding. No bowel movement. 4 days. Remains sedated on midazolam and propofol drips Subjective 02/19: T-max 101.6. Currently 99.6. Tolerating tube feeds. 2 problems overnight. Remains on midazolam and propofol drips and phenobarbital, valproic acid and lacosamide Objective Vital Signs Date Time Temp Pulse Resp B/P (MAP) Pulse Ox O2 Delivery O2 Flow Rate FiO2 02/19/18 07:52 94 60 02/19/18 06:00 92 02/19/18 04:00 99.6 16 101/50 (67) Intake and Output 02/19/18 02/19/18 02/20/18 08:00 16:00 00:00 Intake Total 971 ml Output Total 550 ml Balance 421 ml Result Diagram: 02/19/18 04002/19/18 0400 Other Results Microbiology Date/Time Source Procedure Growth Status 02/15/18 12:00 Blood Peripheral Aerobic Blood Culture - Preliminary NO GROWTH IN 3 DAYS Resulted 02/15/18 12:00 Blood Peripheral Anaerobic Blood Culture - Preliminary NO GROWTH IN 3 DAYS Resulted 02/18/18 14:00 Urine Catheterized Urine Urine Culture Pending Received Imaging Last Impressions Chest X-Ray 02/19/18 0600 Signed Impressions: Service Date/Time: Monday, February 19, 2018 03:03 - CONCLUSION: 1. Small pleural effusions and bibasilar densities again noted. Slightly more prominent on current study. Kashif Forrest MD Renal Ultrasound 02/16/18 0000 Signed Impressions: Service Date/Time: Friday, February 16, 2018 10:17 - CONCLUSION: 1. Unremarkable renal ultrasound examination without evidence for obstructive uropathy. Adin Sanchez MD Head CT 02/10/18 1115 Signed Impressions: Service Date/Time: Saturday, February 10, 2018 12:19 - CONCLUSION: Stable negative noncontrast CT. Mustapha Grossman MD Brain MRI 02/10/18 0000 Signed Impressions: Service Date/Time: Saturday, February 10, 2018 16:30 - CONCLUSION: 1. Stable appearance with no acute hemorrhage, mass or infarction. 2. Moderate atrophic change and stable mild ventricular prominence. Mustapha Grossman MD Objective Remarks GENERAL: 67-year-old female currently orotracheally intubated HEENT: Normocephalic. Atraumatic. Pupils 2mm, equal, round, reactive, conjugate. Mucous membranes are moist and pink.. NECK: Trachea is midline. Orally intubated. CHEST: Essentially clear to auscultation bilaterally without wheezes rales rhonchi CARDIOVASCULAR: RRR. S1, S2 no strip without murmur ABDOMEN: Soft, nontender, nondistended. No guarding. MUSCULOSKELETAL: Pulses 2+. No peripheral edema. NEUROLOGICAL: . No withdrawal while on midazolam and propofol. No spontaneous eye opening or movements. (Unable to wean sedation) positive gag. Positive cough. Positive corneal reflex. SKIN: Bullous/clear areas bilateral upper extremities right greater than left. Urinary Catheter: Yes Assessment to: Continue Ardon insert reason: Prolonged Immobilization Vascular Central Line Catheter: Yes Assessment to: Continue Date of Insertion: Feb 17, 2018 Line: PICC Side: Left Location: Antecubital A/P Assessment and Plan Neuro/Psych: Status epilepticus Elevated IOP Acute encephalopathy Currently on midazolam drip at 6 mg an hour, propofol drip at 20 mcg/kg/min for sedation while intubated Continue valproate 500 mg IV every 6 hours. Level currently 43. Bolus 500 mg IV 1 now Continue phenobarbital 140 mg IV every 8 hours. Level currently 19.2 Continue lacosamide 100 mg IV every 8 hours. MRI brain 02/10 revealed mild ventricular enlargement. Atrophy. EEG brain 02/18 revealed suppressed platelets. EEG brain 02/16 revealed left frontal central spiking. -EEG 02/15/18 showed persistent seizure activity 02/14 probable phase reversal noted on left side. 02/15 persistent seizures -EEG repeat 02/12 no active seizures. -No sedation vacation until cleared by Dr. Headley -Continue ICU care, frequent neuro checks At home on valproic acid 500 mg 3 times daily with 250 mg at night Acetaminophen 650 mg every 6 hours as needed fever Continue bimatoprost 0.01% 1 drop each eye at night with appropriate hospital substitution Resp: Acute respiratory failure/hypoxic and hypercapnic ACV 15// Ventilator bundle Albuterol/ipratropium aerosols every 6 hours with albuterol aerosols every 2 hours as needed dyspnea Continue montelukast 10 mg by tube daily Spontaneous breathing trials when okay with neurology Follow chest x-ray in a.m. 02/20 CV: Hypertension Dyslipidemia Currently on phenylephrine drip at 50 mcg/min to maintain mean arterial pressure greater than 65 Continue lisinopril 20 mg p.o. daily for hypertension decreased to 5 mg daily. Hold while on vasopressors As needed hydralazine/labetalol to keep systolic blood pressure less than 170 Continue aspirin 81 mg p.o. daily Continue ezetimibe 10 mg p.o. daily for dyslipidemia GI OG tube and tube feeds with vital high-protein goal 55 cc/h per nutrition's recommendations Lansoprazole for GI prophylaxis Docusate sodium/senna 1 tablet twice daily for bowel regimen Continue free water 200 mL every 6 hours : Overactive bladder Recent ureteral stent for hydronephrosis Currently on free water 200 cc every 6 hours -daily BMP. Sodium slowly improving -ICU electrolyte protocol. Keep Mag>2 Renal ultrasound revealed no hydronephrosis 02/16 Currently holding oxybutynin 5 mg daily ID: -UTI with E. coli 02/10 Will discontinue cefepime 2 g IV every 8 hours 02/18 with status epilepticus. Pertinent cultures Ordered blood cultures 2 and sputum 02/19 02/18 -urine culture -pending 02/15 -UA -no growth 4/5 blood cultures 2 -no growth 02/10 -UA -E. coli HEME: Leukocytosis Macrocytic anemia -Monitor CBC. Follow trend Endo Mild hyperglycemia Hypothyroidism Sliding scale insulin with NovoLog with Accu-Cheks to maintain euglycemia/low regimen every 6 hours Continue levothyroxine 75 mcg by tube daily recheck TSH was 10.4. Will increase levothyroxine to 88 mcg daily Access -Left antecubital PICC line placed 02/17/dual-lumen Prophylaxis -GI -lansoprazole -DVT -SCD/enoxaparin Level 2 follow-up Tonny Lomeli MD Feb 19, 2018 09:50
[2018-02-19] MEDS ORDERED: POTASSIUM CHLORIDE 20 MEQ PWD PACKET PO ONE (10:00)
[2018-02-19] MEDS ORDERED: VALPROATE INJ 500 MG in SODIUM CHLORIDE 0.9% INJ 100 ML IV ONE (10:00)
--- NOTE | 2018-02-19 15:22 | MB ---
cc: Irving Rolle MD DATE: 02/19/2018 REQUESTING PHYSICIAN: Dr. Gill. REASON FOR CONSULTATION: The patient with status epilepticus and recurrent urinary tract infection. Assistance with antibiotic management. HISTORY OF PRESENT ILLNESS: This is a 67-year-old white female who presented to the emergency department on 02/10/2018 with acute altered mental status. The patient was found to be with status epilepticus. In the emergency department, the temperature phyllis to 103 degrees on the evening of admission. She was intubated and EEG has been repeatedly performed and shows that she is continuing to have seizure activity. The patient continues to have fever with temperature spike of 102 early today. She received IV antibiotic treatment for urinary tract infection due to Escherichia coli, which was cultured on admission urine culture. Her white blood cell count has increased to 27.7 today, up from 14.8 yesterday. Differential also shows increased bands. Repeated urine culture has immature growth. Blood cultures on 02/15/2018, no growth. The patient is currently sedated on the ventilator. She is also receiving Chris-Synephrine. This consultation was requested for antibiotic management. Information is obtained from the medical record since the patient is unable to give information because she is on the ventilator. The patient has loose stools. She is receiving lactulose. PAST MEDICAL HISTORY: Hypertension, hyperlipidemia, seizure disorder, urinary incontinence, history of back surgery, history of shoulder surgery, hysterectomy, history of knee surgery. ALLERGIES: FLUCONAZOLE, PHENYTOIN, RIFAMPIN, LEVETIRACETAM, HYDROMORPHONE. MEDICATIONS: Prinivil, Synthroid, Prevacid, lactulose, Lovenox, Singulair, DuoNeb, MiraLax, lacosamide, Ativan, potassium, supplemental insulin. SOCIAL HISTORY: Unable to obtain. REVIEW OF SYSTEMS: Unable to obtain. PHYSICAL EXAMINATION: GENERAL: Well-developed female who is on the ventilator. She is sedated and unresponsive. VITAL SIGNS: Temperature 100, BP 98/55, heart rate 73, respirations per the ventilator. Current FiO2 is 60 percent. HEENT: Unable to fully assess. The patient cannot cooperate. No icterus. Oropharynx intubated. NECK: Supple, no adenopathy. LUNGS: Diminished breath sounds throughout. HEART: Regular S1 and S2, without audible murmurs, rubs or gallops. ABDOMEN: Obese, soft, diminished bowel sounds. Nontender. RECTAL: Not performed. EXTREMITIES: Diffuse edema with clear fluid filled blisters on the arms. SKIN: No diffuse rash. NEUROLOGIC: Unable to assess. PSYCHIATRIC: Unable to assess. LABORATORY DATA: WBC 27.7, platelets 215, 89% neutrophils, hemoglobin 9.1, creatinine 0.86, BUN 37, sodium 143, AST 55, ALT 19, alkaline phosphatase 97. Chest x-ray shows small bilateral effusions. IMPRESSION: 1. Fever in a patient with status epilepticus and now having leukocytosis, worsening. 2. Urinary tract infection. Urine culture pending. 3. Acute respiratory failure. 4. Loose stools. The patient receiving lactulose. However, prior history of antibiotic use. 5. Probable sepsis. RECOMMENDATIONS: 1. Begin Zosyn. 2. Monitor urine culture. 3. Monitor white blood cell count. 4. Monitor blood cultures. 5. Monitor clinical status. 6. Obtain stool Clostridium difficile toxin since the patient has been on antibiotics previously. Thank you for this consultation. I will follow the patient's progress with you and make further recommendations upon followup. Irving Rolle MD FFD/TL , 02:40 PM , 03:21 PM
--- NOTE | 2018-02-19 19:43 | HHI.PR ---
Review/Management Diagnosis status epilepticus--resolved on versed and propofol Plan increase vpa and phenobarb doses Diagnosis/Plan: Subjective Subjective Comments No acute events reported developed eeg sz activity when diprivan titrated this am from 30 to 20--now resolved after increasing to 30 Active Medications Current Medications Medications (Trade) Dose Ordered Sig/Tiera Route Start Time Stop Time Status Last Admin (NS Flush) 2 ml UNSCH PRN IV FLUSH 02/10/18 11:15 Potassium Chloride 100 ml @ 25 mls/hr Q2H PRN IV 02/10/18 13:15 Potassium Chloride 100 ml @ 50 mls/hr Q2H PRN IV 02/10/18 13:15 (K-Lyte Cl Eff) 50 meq UNSCH PRN PO 02/10/18 13:15 02/12/18 09:38 Potassium Chloride 100 ml @ 25 mls/hr UNSCH PRN IV 02/10/18 13:15 Potassium Chloride 100 ml @ 50 mls/hr Q2H PRN IV 02/10/18 13:15 Magnesium Sulfate 4 gm/Sodium Chloride 100 ml @ 50 mls/hr UNSCH PRN IV 02/10/18 13:15 (Mag-Ox) 800 mg UNSCH PRN PO 02/10/18 13:15 Magnesium Sulfate 2 gm/Sodium Chloride 100 ml @ 50 mls/hr UNSCH PRN IV 02/10/18 13:15 (K-Phos) 2,000 mg Q4H PRN PO 02/10/18 13:15 Sodium Phosphate 30 mmol/Sodium Chloride 250 ml @ 42 mls/hr UNSCH PRN IV 02/10/18 13:15 (K-Phos) 2,000 mg UNSCH PRN PO/TUBE 02/10/18 13:15 Potassium Phosphate 30 mmol/ Sodium Chloride 260 ml @ 42 mls/hr UNSCH PRN IV 02/10/18 13:15 (Peridex 0.12% Liq) 15 ml BID@08,20 MT 02/10/18 20:00 02/19/18 08:56 (D50w (Vial) Inj) 25 ml UNSCH PRN IV PUSH 02/10/18 13:15 (NovoLIN R SUPPLEMENTAL SCALE) 1 Q6HR SQ 02/10/18 18:00 02/19/18 17:07 (Zofran Inj) 4 mg Q6H PRN IV PUSH 02/10/18 13:15 Miscellaneous Information 1 Q361D XX 02/10/18 13:15 02/10/18 13:15 (Chlorhexidine 2% Cloth) Taper DAILY@04 TOP 02/11/18 04:00 02/07/19 03:59 02/19/18 04:20 (Chlorhexidine 2% Cloth) 3 pack UNSCH PRN TOP 02/10/18 13:15 (Anahi-Colace) 1 tab BID PO 02/10/18 21:00 02/19/18 08:54 (Milk Of Magnesia Liq) 30 ml Q12H PRN PO 02/10/18 13:15 (Senokot) 17.2 mg Q12H PRN PO 02/10/18 13:15 (Dulcolax Supp) 10 mg DAILY PRN RECTAL 02/10/18 13:15 (Lactulose Liq) 30 ml DAILY PRN PO 02/10/18 13:15 Midazolam HCl 100 ml @ 2 mls/hr TITRATE PRN IV 02/10/18 14:15 02/19/18 16:40 Valproate Sodium 500 mg/Sodium Chloride 105 ml @ 105 mls/hr Q6H IV 02/10/18 19:30 02/19/18 12:51 (Ativan Inj) 2 mg Q1H PRN IV PUSH 02/11/18 15:00 02/14/18 01:48 Propofol 100 ml @ 2.535 mls/ hr TITRATE PRN IV 02/11/18 15:00 02/19/18 17:02 Lacosamide 100 mg/ Sodium Chloride 110 ml @ 110 mls/hr Q8H IV 02/15/18 12:00 02/19/18 12:37 (Luminal Inj) 140 mg Q8HR IV 02/16/18 14:00 02/19/18 15:29 (NS Flush) See Protocol DAILY IV FLUSH 02/18/18 09:00 02/18/18 09:00 (NS Flush) See Protocol UNSCH PRN IV FLUSH 02/17/18 17:45 (Heparin Central Flush) See Protocol DAILY IV FLUSH 02/18/18 09:00 (Heparin Central Flush) See Protocol UNSCH PRN IV FLUSH 02/17/18 17:45 (NS Flush) UNSCH PRN IV FLUSH 02/17/18 17:45 (Duoneb Neb) 1 ampule Q6HR NEB INH 02/18/18 11:00 02/19/18 15:52 (Tylenol 650 Mg/ 20 ml Liq) 650 mg Q6H PRN PO 02/18/18 09:30 02/18/18 21:32 (Tears Naturale Opth Soln) 1 drop Q8HR EACH EYE 02/18/18 14:00 02/19/18 15:13 (Albuterol Neb) 2.5 mg Q2HR NEB PRN NEB 02/18/18 09:30 02/19/18 00:33 (Trandate Inj) 10 mg Q1H PRN IV PUSH 02/18/18 09:30 (Apresoline Inj) 10 mg Q1H PRN IV 02/18/18 09:30 (Prevacid Odt) 30 mg DAILY NG 02/19/18 09:00 02/19/18 08:54 (Singulair) 10 mg HS PO 02/18/18 21:00 02/18/18 20:26 (Xalatan 0.005% Opth Soln) 1 drop HS EACH EYE 02/18/18 21:00 02/18/18 20:26 (Miralax) 17 gm BID PO 02/18/18 10:00 02/19/18 08:52 (Lactulose Liq) 30 ml DAILY PO 02/19/18 09:00 02/19/18 08:52 (Lovenox Inj) 40 mg Q24H SQ 02/19/18 06:00 02/19/18 05:42 (Nitroglycerin 2% Oint) 2 inch Q6HR PRN TOPICAL 02/18/18 13:15 (Apresoline Inj) 10 mg Q1HR PRN IV PUSH 02/18/18 13:15 (Brethine Inj) 1 mg UNSCH PRN SQ 02/18/18 18:45 Phenylephrine HCl 160 mg/Sodium Chloride 500 ml @ 1.87 mls/hr TITRATE PRN IV 02/18/18 20:00 02/18/18 22:09 (Synthroid) 88 mcg DAILY@0600 PO 02/20/18 06:00 (Prinivil) 5 mg DAILY PO 02/20/18 09:00 Allergies Allergies Coded Allergies fluconazole (Unverified Allergy, Severe, 02/10/18) hydromorphone (Unverified Allergy, Severe, 02/10/18) levetiracetam (Unverified Allergy, Severe, Anaphylaxis, 02/10/18) rifampin (Unverified Allergy, Severe, 02/10/18) phenytoin (Unverified Allergy, Mild, Rash, 02/10/18) Exam I&O / VS 02/19/18 02/19/18 02/20/18 15:00 23:00 07:00 Intake Total 105 ml 665 ml Output Total 1250 ml Balance 105 ml -585 ml IV Total 105 ml Tube Feeding 605 ml Other 60 ml Output Urine Total 1250 ml # Bowel Movements 3 Vital Signs Date Time Temp Pulse Resp B/P (MAP) Pulse Ox O2 Delivery O2 Flow Rate FiO2 02/19/18 18:00 89 02/19/18 16:55 97 55 02/19/18 16:00 79 02/19/18 16:00 99.5 79 16 155/68 (97) 02/19/18 16:00 60 02/19/18 14:00 73 02/19/18 12:41 87 115/53 02/19/18 12:00 91 02/19/18 12:00 100.0 91 16 112/54 (73) 95 02/19/18 12:00 60 02/19/18 11:48 95 60 02/19/18 10:00 93 02/19/18 08:00 60 02/19/18 08:00 92 02/19/18 08:00 102.0 92 17 110/55 (73) 94 02/19/18 07:52 94 60 02/19/18 06:00 92 02/19/18 04:41 95 60 02/19/18 04:00 90 02/19/18 04:00 99.6 92 16 101/50 (67) 93 02/19/18 04:00 60 02/19/18 02:25 93 86/51 02/19/18 02:00 98 02/19/18 00:17 95 60 02/19/18 00:16 105 85/62 02/19/18 00:00 101.6 105 16 101/52 (68) 93 02/19/18 00:00 105 02/19/18 00:00 60 02/18/18 22:35 109 118/52 02/18/18 22:20 109 97/51 02/18/18 22:09 113 73/50 02/18/18 22:00 109 02/18/18 20:18 97 50 02/18/18 20:00 50 02/18/18 20:00 101.3 127 16 117/68 (84) 94 02/18/18 20:00 120 Exam Comments sedated, nonresponseve No tonic clonic activity No focal deficit Objective Micro and Labs Laboratory Tests Test 02/19/18 04:00 White Blood Count 27.7 Red Blood Count 2.74 Hemoglobin 9.1 Hematocrit 28.0 Mean Corpuscular Volume 102.2 Mean Corpuscular Hemoglobin 33.4 Mean Corpuscular Hemoglobin Concent 32.7 Red Cell Distribution Width 16.4 Platelet Count 215 Mean Platelet Volume 9.8 Neutrophils (%) (Auto) 89.5 Lymphocytes (%) (Auto) 3.6 Monocytes (%) (Auto) 6.6 Eosinophils (%) (Auto) 0.2 Basophils (%) (Auto) 0.1 Neutrophils # (Auto) 24.8 Lymphocytes # (Auto) 1.0 Monocytes # (Auto) 1.8 Eosinophils # (Auto) 0.1 Basophils # (Auto) 0.0 CBC Comment AUTO DIFF Differential Total Cells Counted 100 Neutrophils % (Manual) 30 Band Neutrophils % 56 Lymphocytes % 3 Monocytes % 6 Neutrophils # (Manual) 25.2 Metamyelocytes 4 Myelocytes 1 Differential Comment FINAL DIFF MANUAL Toxic Granulation 2+ Toxic Vacuolation PRESENT Platelet Estimate NORMAL Platelet Morphology Comment CLUMPED Blood Urea Nitrogen 37 Creatinine 0.86 Random Glucose 182 Total Protein 4.9 Albumin 1.2 Calcium Level 8.0 Phosphorus Level 3.3 Magnesium Level 2.3 Alkaline Phosphatase 97 Aspartate Amino Transf (AST/SGOT) 55 Alanine Aminotransferase (ALT/SGPT) 19 Total Bilirubin 0.3 Sodium Level 143 Potassium Level 3.8 Chloride Level 104 Carbon Dioxide Level 29.5 Anion Gap 10 Estimat Glomerular Filtration Rate 66 Free Thyroxine 0.50 Free Triiodothyronine (T3) pg/dL 0.51 Valproic Acid (Depakene) Level 43 Phenobarbital Level 19.1 Date/Time Source Procedure Growth Status 02/19/18 15:13 Blood Line Aerobic Blood Culture Pending Received 02/19/18 15:13 Blood Line Anaerobic Blood Culture Pending Received 02/18/18 14:00 Urine Catheterized Urine Urine Culture - Preliminary IMMATURE GROWTH - REINCUBATE Resulted Loy Headley MD PhD Feb 19, 2018 19:43
[2018-02-19] MEDS: MONTELUKAST SODIUM 10 MG TAB PO SCH (20:51)
[2018-02-19] MEDS: LATANOPROST 0.005% OPHT SOLN 2.5 ML BTL EACH EYE SCH (20:53)
[2018-02-20] VITALS (19 sets, daily range): BP systolic 135–174; BP diastolic 63–76; PULSE 74–101; RESP 0–16; TEMP 98.1–99.8; O2SAT 81–100
[2018-02-20 03:52] LABS: AUTOMATED NEUTROPHIL # 17.5 TH/MM3 (1.8-7.7); BASOPHIL % 0.2 % (0.0-2.0); EOSINOPHIL # 0.4 TH/MM3 (0-0.4); EOSINOPHIL % 1.8 % (0.0-4.0); HEMATOCRIT 23.6 % (35.0-46.0); HEMOGLOBIN 7.8 GM/DL (11.6-15.3); LYMPH % 4.9 % (9.0-44.0); MEAN CELL VOLUME 100.1 FL (80.0-100.0); MEAN CORPUSCULAR HEMOGLOBIN 33.2 PG (27.0-34.0); MEAN CORPUSCULAR HGB CONC 33.2 % (32.0-36.0); MEAN PLATELET VOLUME 9.2 FL (7.0-11.0); MONO % 6.1 % (0.0-8.0); MONOCYTE # 1.2 TH/MM3 (0-0.9); PLATELET COUNT 211 TH/MM3 (150-450); RED BLOOD COUNT 2.35 MIL/MM3 (4.00-5.30); RED CELL DISTRIBUTION WIDTH 15.8 % (11.6-17.2); WHITE BLOOD COUNT 20.1 TH/MM3 (4.0-11.0)
[2018-02-20] MEDS: RESP: ALBUTEROL 2.5 MG/IPRATROPIUM 0.5 MG NEB (SCH) INH ×4 (03:53→20:37)
[2018-02-20 04:15] LABS: ALBUMIN 1.2 GM/DL (3.4-5.0); ALT (GPT) 18 U/L (10-53); AST (GOT) 62 U/L (15-37); BICARBONATE 30.4 MEQ/L (21.0-32.0); BLOOD UREA NITROGEN 27 MG/DL (7-18); CALCIUM 8.2 MG/DL (8.5-10.1); CHLORIDE 108 MEQ/L (98-107); CREATININE 0.49 MG/DL (0.50-1.00); GLOMERULAR FILTRATION RATE 126 ML/MIN (>89); GLUCOSE,RANDOM 162 MG/DL (74-106); MAGNESIUM 2.3 MG/DL (1.5-2.5); SODIUM (NA) 145 MEQ/L (136-145)
--- NOTE | 2018-02-20 04:16 | RADRPT ---
EXAM DATE/TIME: 02/20/2018 02:58 [facility] COMPARISON: CHEST SINGLE AP, February 19, 2018, 3:03. INDICATIONS : Short of breath. MEDICAL HISTORY : Arthritis. Hypertension Seizures SURGICAL HISTORY : Hysterectomy. section. Total knee replacement, left. Total knee replacement, right ENCOUNTER: Subsequent ACUITY: 1 week PAIN SCORE: 0/10 LOCATION: Bilateral chest FINDINGS: A single view of the chest demonstrates bibasilar densities. Heart mildly enlarged. Endotracheal tube , nasogastric tube and left-sided PICC line are stable in position. Scoliotic rods are noted. Osseou s structures are intact. CONCLUSION: Stable exam with bibasilar densities and probable pleural effusions. Kashif Forrest MD on February 20, 2018 at 4:13 Board Certified Radiologist. This report was verified electronically.
[2018-02-20] MEDS: INSULIN NovoLIN REGULAR SUPPLEMENTAL SCALE SQ SCH ×4 (04:20→16:49)
[2018-02-20] MEDS: LACOSAMIDE INJ 100 MG in SODIUM CHLORIDE 0.9% INJ 100 ML IV SCH ×2 (04:21→11:36)
[2018-02-20] MEDS: PROPOFOL 1000 MG/100 ML INJ 100 ML IV PRN ×2 (04:21→13:46)
[2018-02-20] MEDS: PHENobarbital SOD 130 MG/ML VIAL IV SCH ×3 (04:28→16:48)
[2018-02-20 04:31] LABS: ALKALINE PHOSPHATASE 87 U/L (45-117); PHOSPHORUS 1.5 MG/DL (2.5-4.9); TOTAL BILIRUBIN ADULT 0.2 MG/DL (0.2-1.0); TOTAL PROTEIN 5.3 GM/DL (6.4-8.2)
[2018-02-20] MEDS: VALPROATE INJ 500 MG in SODIUM CHLORIDE 0.9% INJ 100 ML IV SCH ×7 (06:38→16:49)
[2018-02-20] MEDS: ENOXAPARIN SODIUM 40 MG/0.4 ML SYRINGE SQ SCH (06:39)
[2018-02-20] MEDS: LEVOTHYROXINE SODIUM 88 MCG TAB PO SCH (06:39)
[2018-02-20] MEDS ORDERED: POTASSIUM CHLORIDE 20 MEQ PWD PACKET PO ONE (07:30)
[2018-02-20] MEDS ORDERED: ALBUMIN 25% INJ 50 ML IV ONE (07:30)
[2018-02-20] MEDS ORDERED: FUROSEMIDE 20 MG/2 ML VIAL IV PUSH ONE (07:30)
[2018-02-20] MEDS ORDERED: VALPROATE INJ 500 MG in SODIUM CHLORIDE 0.9% INJ 100 ML IV ONE (08:00)
[2018-02-20] MEDS ORDERED: POTASSIUM PHOSPHATE INJ 30 MMOL in SODIUM CHLOR 0.9% 250 ML INJ 250 ML IV ONE (08:00)
--- NOTE | 2018-02-20 08:00 | HHI.CCPN ---
Subjective Remarks/Hospital Course This is a 67-year-old female with a history of poorly controlled seizures who presents with acute altered mental status. She was last seen normal at 3 AM this morning. Initially she was considered to be a stroke alert, however CT noncontrasted brain was negative and her nonfocal appearance was much more suggestive of seizures and stroke, along with the fact that her last seen normal time was significantly delayed. Stat EEG was ordered and she was found to be in status epilepticus. She was emergently intubated due to her poor mental status. I was called immediately down to the bedside for the EEG demonstrating status. At the bedside, I pushed 10 mg of Versed IV 1 and started her on a Versed drip at 10 mg an hour. No information is available from the patient due to her mental status. ROS is unobtainable. The majority of the information I have is obtained from medical record, and in specifically the H&P documented by Dr. Guerra back in October 2017, which is very helpful. In reading through her chart, it appears that when she comes off her Topamax, she goes into status. It appears that she has recently come off Topamax again due to side effects. She is anaphylactically allergic to Keppra and phenytoin, so these are not available to us to use. Versed drip was used successfully in her last admission October 2017, so that is what we have chosen. I have spoken with Dr. Headley who is not only an on-call neurologist but her personal neurologist who sees her frequently, and he agrees with this plan. He also thinks that Vimpat is a good option for seizure control, which I agree with. We will plan to load her with that. 02/11/18: Remains encephalopathy on the vent. No spontaneous movement noted when Versed is held. Will get a repeat EEG today. Wean sedation only if seizure controlled 02/12: Calm now, no convulsive activity. EEG result pending. Midazolam at 10. 02/13: On continuous EEG monitoring, no seizures noted. Versed had been weaned down to 5 mg/h, propofol at 20 mcg/kg/min. Patient does not open eyes or moves spontaneously 02/14: On attempted sedation wean yesterday night patient developed 2 episodes of seizures. Currently no clinical seizures. I discussed with Dr. Headley, will start phenobarbital 90 mg IV every 8 hours. Repeat EEG today. Currently back on 50 mcg/kg/min of propofol, Versed 7 mg per hour 02/15: Remains heavily sedated, started on phenobarbital IV yesterday. Level only 2.8. Will increase dose to 120 mg every 8 hours repeat level in a.m. EEG today pending. No sedation weaning without clearance from Dr. Headley. EEG yesterday showed some left-sided phase reversal. Leukocytosis with bandemia noted, will re culture 02/16: Pt had persistent epileptiform activity on eeg 02/[address] Headley. No sedation vacation until repeat EEG shows resolution. I have updated about this at the bedside. Repeat cultures pending at this time. Check renal ultrasound as the patient had recent hydronephrosis, ureteral stent. Patient remains critically ill in severely encephalopathic due to uncontrolled seizures 02/17: remains deeply sedated for status epilepticus. phenobarb level 55.[address] Headley managing anti-epileptics: very difficult to control seizures as well as difficult medication titration given multiple anaphylactic allergies to anticonvulsants. 02/18: T-max 100. Currently 99.4. Tolerating tube feeding. No bowel movement. 4 days. Remains sedated on midazolam and propofol drips 02/19: T-max 101.6. Currently 99.6. Tolerating tube feeds. 2 problems overnight. Remains on midazolam and propofol drips and phenobarbital, valproic acid and lacosamide Subjective 02/20: Afebrile. Propofol increased to 30 mg/kg/min overnight. Suppressing seizures currently. Increasing antiepileptics per neurology. Tolerating tube feeding. Positive BM. Objective Vital Signs Date Time Temp Pulse Resp B/P (MAP) Pulse Ox O2 Delivery O2 Flow Rate FiO2 02/20/18 06:00 82 02/20/18 04:00 99.0 16 152/68 (96) 97 02/20/18 04:00 55 Intake and Output 02/20/18 02/20/18 02/21/18 08:00 16:00 00:00 Intake Total 2312 ml Output Total 900 ml Balance 1412 ml Result Diagram: 02/20/18 0315 02/20/18 0315 Other Results Microbiology Date/Time Source Procedure Growth Status 02/19/18 15:13 Blood Line Aerobic Blood Culture Pending Received 02/19/18 15:13 Blood Line Anaerobic Blood Culture Pending Received 02/19/18 21:30 Sputum Endotracheal Gram Stain Pending Received 02/19/18 21:30 Sputum Endotracheal Sputum Culture Pending Received 02/18/18 14:00 Urine Catheterized Urine Urine Culture - Preliminary IMMATURE GROWTH - REINCUBATE Resulted Imaging Last Impressions Chest X-Ray 02/20/18 0600 Signed Impressions: Service Date/Time: Tuesday, February 20, 2018 02:58 - CONCLUSION: Stable exam with bibasilar densities and probable pleural effusions. Kashif Forrest MD Renal Ultrasound 02/16/18 0000 Signed Impressions: Service Date/Time: Friday, February 16, 2018 10:17 - CONCLUSION: 1. Unremarkable renal ultrasound examination without evidence for obstructive uropathy. Adin Sanchez MD Head CT 02/10/18 1115 Signed Impressions: Service Date/Time: Saturday, February 10, 2018 12:19 - CONCLUSION: Stable negative noncontrast CT. Mustapha Grossman MD Brain MRI 02/10/18 0000 Signed Impressions: Service Date/Time: Saturday, February 10, 2018 16:30 - CONCLUSION: 1. Stable appearance with no acute hemorrhage, mass or infarction. 2. Moderate atrophic change and stable mild ventricular prominence. Mustapha Grossman MD Objective Remarks GENERAL: 67-year-old female currently orotracheally intubated HEENT: Normocephalic. Atraumatic. Pupils 2mm, equal, round, reactive, conjugate. Mucous membranes are moist and pink.. NECK: Trachea is midline. Orally intubated. CHEST: Essentially clear to auscultation bilaterally without wheezes rales rhonchi CARDIOVASCULAR: RRR. S1, S2 no strip without murmur ABDOMEN: Soft, nontender, nondistended. No guarding. MUSCULOSKELETAL: Pulses 2+. No peripheral edema. NEUROLOGICAL: . No withdrawal while on midazolam and propofol. No spontaneous eye opening or movements. (Unable to wean sedation) positive gag. Positive cough. Positive corneal reflex. SKIN: Bullous/clear areas bilateral upper extremities right greater than left. Urinary Catheter: Yes Assessment to: Continue Ardon insert reason: Prolonged Immobilization Vascular Central Line Catheter: Yes Assessment to: Continue Date of Insertion: Feb 17, 2018 Line: PICC Side: Left Location: Antecubital A/P Assessment and Plan Neuro/Psych: Status epilepticus Elevated IOP Acute encephalopathy Currently on midazolam drip at 6 mg an hour, propofol drip at 30 mcg/kg/min for sedation while intubated Continue valproate 500 mg IV every 4 hours. Level currently 48. Bolus 500 mg IV 1 now Continue phenobarbital 140 mg IV every 6 hours. Level currently 26 Continue lacosamide 100 mg IV every 8 hours. MRI brain 02/10 revealed mild ventricular enlargement. Atrophy. EEG brain 02/18 revealed suppressed platelets. EEG brain 02/16 revealed left frontal central spiking. -EEG 02/15/18 showed persistent seizure activity 02/14 probable phase reversal noted on left side. 02/15 persistent seizures -EEG repeat 02/12 no active seizures. -No sedation vacation until cleared by Dr. Headley -Continue ICU care, frequent neuro checks At home on valproic acid 500 mg 3 times daily with 250 mg at night Acetaminophen 650 mg every 6 hours as needed fever Continue bimatoprost 0.01% 1 drop each eye at night with appropriate hospital substitution latanoprost 0.005% 1 drop each eye at night Resp: Acute respiratory failure/hypoxic and hypercapnic ACV 15/500/5/40 Ventilator bundle Albuterol/ipratropium aerosols every 6 hours with albuterol aerosols every 2 hours as needed dyspnea Continue montelukast 10 mg by tube daily Spontaneous breathing trials when okay with neurology Follow chest x-ray in a.m. 02/21 CV: Hypertension Dyslipidemia Currently on phenylephrine drip at 10 mcg/min to maintain mean arterial pressure greater than 65 When appropriate lisinopril 20 mg p.o. daily/home medication for hypertension can be decreased to 5 mg daily. Hold while on vasopressors As needed hydralazine/labetalol to keep systolic blood pressure less than 170 Continue aspirin 81 mg p.o. daily Continue ezetimibe 10 mg p.o. daily for dyslipidemia GI OG tube and tube feeds with vital high-protein goal 65 cc/h per nutrition's recommendations Lansoprazole for GI prophylaxis Docusate sodium/senna 1 tablet twice daily for bowel regimen Continue free water 100 mL every 6 hours : Overactive bladder Recent ureteral stent for hydronephrosis -daily BMP. Sodium slowly improving -ICU electrolyte protocol. Keep Mag>2 Renal ultrasound revealed no hydronephrosis 02/16 Currently holding oxybutynin 5 mg daily ID: -UTI with E. coli 02/10 Will discontinue cefepime 2 g IV every 8 hours 02/18 with status epilepticus. Currently Pipracil/tazobactam day #2 per infectious disease Pertinent cultures No growth to date blood cultures 2 and sputum 02/19 02/18 -urine culture -no growth/intubated 02/15 -UA -no growth 02/15 blood cultures 2 -no growth 02/10 -UA -E. coli HEME: Leukocytosis Macrocytic anemia -Monitor CBC. Follow trend Endo Mild hyperglycemia Hypothyroidism Sliding scale insulin with NovoLog with Accu-Cheks to maintain euglycemia/low regimen every 6 hours Continue levothyroxine 75 mcg by tube daily recheck TSH was 10.4. Will increase levothyroxine to 88 mcg daily Access -Left antecubital PICC line placed 02/17/dual-lumen Prophylaxis -GI -lansoprazole -DVT -SCD/enoxaparin Level 3 follow-up Tonny Lomeli MD Feb 20, 2018 08:00
--- NOTE | 2018-02-20 08:22 | MG ---
cc: Agapito Cunningham MD ELECTROENCEPHALOGRAM RECORD NUMBER: [id number]. DESCRIPTION: 1-3 Hz activity, bursts of low-amplitude 4-5 Hz activity occurring every 1-3 seconds. Mild driving with photic stimulation lower frequencies. Some EEG variability and reactivity. Single lead EKG showing sinus rhythm. INTERPRETATION: Moderate to severe encephalopathy. No active seizures. Clinical correlation. MD HAMMAD Wells/MARCIA , 08:41 PM , 08:59 PM
[2018-02-20] MEDS: MIDAZOLAM 100 MG/100 ML INJ 100 ML IV PRN (08:30)
[2018-02-20] MEDS: LACTULOSE SYRUP 20 GM/30 ML CUP PO SCH (08:31)
[2018-02-20] MEDS: LANSOPRAZOLE SOLUTAB 30 MG TAB NG SCH (08:31)
[2018-02-20] MEDS: POLYETHYLENE GLYCOL 17 GM PKG PO SCH ×2 (08:31→21:00)
[2018-02-20] MEDS: DOCUSATE SODIUM 50 MG/SENNA 8.6 MG TAB PO SCH (08:31)
[2018-02-20] MEDS: CHLORHEXIDINE 0.12% (ORAL KIT) 15 ML CUP MT SCH ×2 (08:33→20:00)
[2018-02-20] MEDS: SODIUM CHLORIDE 0.9% FLUSH 10 ML FLUSH IV FLUSH SCH (08:34)
[2018-02-20] MEDS: ARTIFICIAL TEARS OPTH SOLN 15 ML BTL EACH EYE SCH ×3 (08:46→22:00)
[2018-02-20] MEDS ORDERED: LISINOPRIL 20 MG TAB PO SCH (09:00)
--- NOTE | 2018-02-20 09:06 | HHI.PR ---
Review/Management Diagnosis status epilepticus--resolved on versed and propofol Plan Now with elevated vpa and phenobarb levels , try again to wean diprivan--reduce to 20 ug and further if EEG stable Diagnosis/Plan: Subjective Subjective Comments No acute events reported EEG looks improved--gen slowing with occasional left frontal sharply contoured waves Active Medications Current Medications Medications (Trade) Dose Ordered Sig/Tiera Route Start Time Stop Time Status Last Admin (NS Flush) 2 ml UNSCH PRN IV FLUSH 02/10/18 11:15 Potassium Chloride 100 ml @ 25 mls/hr Q2H PRN IV 02/10/18 13:15 Potassium Chloride 100 ml @ 50 mls/hr Q2H PRN IV 02/10/18 13:15 (K-Lyte Cl Eff) 50 meq UNSCH PRN PO 02/10/18 13:15 02/12/18 09:38 Potassium Chloride 100 ml @ 25 mls/hr UNSCH PRN IV 02/10/18 13:15 Potassium Chloride 100 ml @ 50 mls/hr Q2H PRN IV 02/10/18 13:15 Magnesium Sulfate 4 gm/Sodium Chloride 100 ml @ 50 mls/hr UNSCH PRN IV 02/10/18 13:15 (Mag-Ox) 800 mg UNSCH PRN PO 02/10/18 13:15 Magnesium Sulfate 2 gm/Sodium Chloride 100 ml @ 50 mls/hr UNSCH PRN IV 02/10/18 13:15 (K-Phos) 2,000 mg Q4H PRN PO 02/10/18 13:15 Sodium Phosphate 30 mmol/Sodium Chloride 250 ml @ 42 mls/hr UNSCH PRN IV 02/10/18 13:15 (K-Phos) 2,000 mg UNSCH PRN PO/TUBE 02/10/18 13:15 Potassium Phosphate 30 mmol/ Sodium Chloride 260 ml @ 42 mls/hr UNSCH PRN IV 02/10/18 13:15 (Peridex 0.12% Liq) 15 ml BID@08,20 MT 02/10/18 20:00 02/20/18 08:33 (D50w (Vial) Inj) 25 ml UNSCH PRN IV PUSH 02/10/18 13:15 (NovoLIN R SUPPLEMENTAL SCALE) 1 Q6HR SQ 02/10/18 18:00 02/20/18 06:39 (Zofran Inj) 4 mg Q6H PRN IV PUSH 02/10/18 13:15 Miscellaneous Information 1 Q361D XX 02/10/18 13:15 02/10/18 13:15 (Chlorhexidine 2% Cloth) Taper DAILY@04 TOP 02/11/18 04:00 02/07/19 03:59 02/19/18 04:20 (Chlorhexidine 2% Cloth) 3 pack UNSCH PRN TOP 02/10/18 13:15 (Anahi-Colace) 1 tab BID PO 02/10/18 21:00 02/20/18 08:31 (Milk Of Magnesia Liq) 30 ml Q12H PRN PO 02/10/18 13:15 (Senokot) 17.2 mg Q12H PRN PO 02/10/18 13:15 (Dulcolax Supp) 10 mg DAILY PRN RECTAL 02/10/18 13:15 (Lactulose Liq) 30 ml DAILY PRN PO 02/10/18 13:15 Midazolam HCl 100 ml @ 2 mls/hr TITRATE PRN IV 02/10/18 14:15 02/20/18 08:30 (Ativan Inj) 2 mg Q1H PRN IV PUSH 02/11/18 15:00 02/14/18 01:48 Propofol 100 ml @ 2.535 mls/ hr TITRATE PRN IV 02/11/18 15:00 02/20/18 04:21 Lacosamide 100 mg/ Sodium Chloride 110 ml @ 110 mls/hr Q8H IV 02/15/18 12:00 02/20/18 04:21 (NS Flush) See Protocol DAILY IV FLUSH 02/18/18 09:00 02/18/18 09:00 (NS Flush) See Protocol UNSCH PRN IV FLUSH 02/17/18 17:45 (Heparin Central Flush) See Protocol DAILY IV FLUSH 02/18/18 09:00 (Heparin Central Flush) See Protocol UNSCH PRN IV FLUSH 02/17/18 17:45 (NS Flush) UNSCH PRN IV FLUSH 02/17/18 17:45 (Duoneb Neb) 1 ampule Q6HR NEB INH 02/18/18 11:00 02/20/18 08:59 (Tylenol 650 Mg/ 20 ml Liq) 650 mg Q6H PRN PO 02/18/18 09:30 02/18/18 21:32 (Tears Naturale Opth Soln) 1 drop Q8HR EACH EYE 02/18/18 14:00 02/20/18 08:46 (Albuterol Neb) 2.5 mg Q2HR NEB PRN NEB 02/18/18 09:30 02/19/18 00:33 (Trandate Inj) 10 mg Q1H PRN IV PUSH 02/18/18 09:30 (Apresoline Inj) 10 mg Q1H PRN IV 02/18/18 09:30 (Prevacid Odt) 30 mg DAILY NG 02/19/18 09:00 02/20/18 08:31 (Singulair) 10 mg HS PO 02/18/18 21:00 02/19/18 20:51 (Xalatan 0.005% Opth Soln) 1 drop HS EACH EYE 02/18/18 21:00 02/19/18 20:53 (Miralax) 17 gm BID PO 02/18/18 10:00 02/20/18 08:31 (Lactulose Liq) 30 ml DAILY PO 02/19/18 09:00 02/20/18 08:31 (Lovenox Inj) 40 mg Q24H SQ 02/19/18 06:00 02/20/18 06:39 (Nitroglycerin 2% Oint) 2 inch Q6HR PRN TOPICAL 02/18/18 13:15 (Apresoline Inj) 10 mg Q1HR PRN IV PUSH 02/18/18 13:15 (Brethine Inj) 1 mg UNSCH PRN SQ 02/18/18 18:45 Phenylephrine HCl 160 mg/Sodium Chloride 500 ml @ 1.87 mls/hr TITRATE PRN IV 02/18/18 20:00 02/18/18 22:09 (Synthroid) 88 mcg DAILY@0600 PO 02/20/18 06:00 02/20/18 06:39 (Prinivil) 5 mg DAILY PO 02/20/18 09:00 Valproate Sodium 500 mg/Sodium Chloride 105 ml @ 105 mls/hr Q4HR IV 02/19/18 20:00 02/20/18 08:31 (Luminal Inj) 140 mg Q6H IV 02/19/18 22:00 02/20/18 04:28 Potassium Phosphate 30 mmol/ Sodium Chloride 260 ml @ 43.333 mls/ hr ONCE ONCE IV 02/20/18 08:00 02/20/18 13:59 Allergies Allergies Coded Allergies fluconazole (Unverified Allergy, Severe, 02/10/18) hydromorphone (Unverified Allergy, Severe, 02/10/18) levetiracetam (Unverified Allergy, Severe, Anaphylaxis, 02/10/18) rifampin (Unverified Allergy, Severe, 02/10/18) phenytoin (Unverified Allergy, Mild, Rash, 02/10/18) Exam I&O / VS Vital Signs Date Time Temp Pulse Resp B/P (MAP) Pulse Ox O2 Delivery O2 Flow Rate FiO2 02/20/18 06:00 82 02/20/18 04:00 99.0 82 16 152/68 (96) 97 02/20/18 04:00 55 02/20/18 04:00 82 02/20/18 03:54 93 55 02/20/18 02:00 88 02/20/18 00:35 100 55 02/20/18 00:00 98.5 79 16 135/63 (87) 99 02/20/18 00:00 55 02/20/18 00:00 88 02/19/18 22:00 80 02/19/18 21:51 100 55 02/19/18 20:00 80 02/19/18 20:00 97.8 80 16 142/63 (89) 98 02/19/18 20:00 55 02/19/18 18:00 89 02/19/18 16:55 97 55 02/19/18 16:00 79 02/19/18 16:00 99.5 79 16 155/68 (97) 02/19/18 16:00 60 02/19/18 14:00 73 02/19/18 12:41 87 115/53 02/19/18 12:00 91 02/19/18 12:00 100.0 91 16 112/54 (73) 95 02/19/18 12:00 60 02/19/18 11:48 95 60 02/19/18 10:00 93 Exam Comments sedated, nonresponseve No tonic clonic activity PERRL, EOM intact to dolls maneuver No focal deficit Objective Micro and Labs Laboratory Tests Test 02/20/18 03:15 White Blood Count 20.1 Red Blood Count 2.35 Hemoglobin 7.8 Hematocrit 23.6 Mean Corpuscular Volume 100.1 Mean Corpuscular Hemoglobin 33.2 Mean Corpuscular Hemoglobin Concent 33.2 Red Cell Distribution Width 15.8 Platelet Count 211 Mean Platelet Volume 9.2 Neutrophils (%) (Auto) 87.0 Lymphocytes (%) (Auto) 4.9 Monocytes (%) (Auto) 6.1 Eosinophils (%) (Auto) 1.8 Basophils (%) (Auto) 0.2 Neutrophils # (Auto) 17.5 Lymphocytes # (Auto) 1.0 Monocytes # (Auto) 1.2 Eosinophils # (Auto) 0.4 Basophils # (Auto) 0.0 CBC Comment DIFF FINAL Differential Comment Blood Urea Nitrogen 27 Creatinine 0.49 Random Glucose 162 Total Protein 5.3 Albumin 1.2 Calcium Level 8.2 Phosphorus Level 1.5 Magnesium Level 2.3 Alkaline Phosphatase 87 Aspartate Amino Transf (AST/SGOT) 62 Alanine Aminotransferase (ALT/SGPT) 18 Total Bilirubin 0.2 Sodium Level 145 Potassium Level 3.6 Chloride Level 108 Carbon Dioxide Level 30.4 Anion Gap 7 Estimat Glomerular Filtration Rate 126 Valproic Acid (Depakene) Level 48 Phenobarbital Level 26.4 Date/Time Source Procedure Growth Status 02/19/18 15:13 Blood Line Aerobic Blood Culture Pending Received 02/19/18 15:13 Blood Line Anaerobic Blood Culture Pending Received 02/19/18 21:30 Sputum Endotracheal Gram Stain Pending Received 02/19/18 21:30 Sputum Endotracheal Sputum Culture Pending Received 02/18/18 14:00 Urine Catheterized Urine Urine Culture - Preliminary IMMATURE GROWTH - REINCUBATE Resulted Loy Headley MD PhD Feb 20, 2018 09:06
[2018-02-20] MEDS: LISINOPRIL 5 MG TAB PO SCH (11:42)
--- NOTE | 2018-02-20 13:43 | PD.WCN.NOT ---
Wound Consult Description: Received consult for evaluation of pressure ulcer to coccyx from Doctor Yani Communicated with: ALIZA Benson [facility] [place] [facility] [place] [place] Lomeli Recommendation: 1.Please cleanse buttocks, gluteal cleft, and perianal areas with Remedy barrier incontinence wipes. Cleanse wound to sacral area with normal saline and pat dry. Apply thick layer of Calazime skin protectant paste to buttocks, gluteal cleft,Perianal area, and over wound BID and PRN. 2. Please leave wound open to air. 3. Turn patient every 2 hours and PRN for comfort and offloading of pressure from freddie prominences. 4. Low airloss bed ordered, please do not use thick cotton under pads on bed, use ultra sorbs only. May use turn sheet for positioning purposes. Additional Information: Patient seen on 5th floor C for evaluation of pressure ulcer to coccyx area.Patient is intubated and sedated at the time of assessment, requiring total care Patient was turned to R side with the maximum assistance of [facility] and service writer advisor. Patient noted with loose stool covering ultrasorb pad under patient. Patient is laying on 2 staggered ultra sorb pads with cotton pad underneath ultrasorb pads for repositioning.Patient was cleansed off feces with Remedy barrier wipes. Patient noted with deep tissue injury opened 80% to partial thickness skin loss with 20% of wound presenting non blanchable intact purple discoloration to Sacral area. Wound measures ~2.5cm x ~3cm x ~< 0.1cm.Wound is dry and non draining without odor. Periwound is noted with blanchable erythema. Wound margins are uneven and irregular. Wound presents with mixed etiology of moisture, pressure and friction. Applied thick layer of Calazime skin protectant paste to sacral, bilateral buttock, gluteal cleft and perianal areas. All areas noted were left open to air. Laurence Clayton [facility] Feb 20, 2018 13:43
--- NOTE | 2018-02-20 14:03 | MG ---
cc: Agapito Cunningham MD EEG RECORD NUMBER: [id number] Intubated, on Versed. Diprivan turned off apparently prior to the recording. Generalized 1-3 Hz delta activity with occasional theta bursts occurring. Periodic frontal delta waves occurring off and on. Single lead EKG appeared to show sinus rhythm. INTERPRETATION: Moderate to severe encephalopathy. Clinical correlation. Agapito Cunningham MD MG/SB , 01:42 PM , 02:02 PM
[2018-02-20] MEDS ORDERED: ONDANSETRON HCL 4 MG/2 ML VIAL IV PUSH PRN (18:45)
--- NOTE | 2018-02-20 20:00 | HHI.IDPN ---
Note Infectious Disease Note Patient is on the ventilator. She is unresponsive. Low-grade fever. No acute distress. Sputum cultures immature growth. Presented to the emergency department on 02/10/2018 with acute altered mental status. She was found to be with status epilepticus. In the emergency department, the temperature phyllis to 103 degrees on the evening of admission. She was intubated and EEG has been repeatedly performed and shows that she is continuing to have seizure activity. The patient continues to have fever with temperature spike of 102 early today. She received IV antibiotic treatment for urinary tract infection due to Escherichia coli, which was cultured on admission urine culture. PAST MEDICAL HISTORY: Hypertension, hyperlipidemia, seizure disorder, urinary incontinence, history of back surgery, history of shoulder surgery, hysterectomy, history of knee surgery. ALLERGIES: FLUCONAZOLE, PHENYTOIN, RIFAMPIN, LEVETIRACETAM, HYDROMORPHONE. MEDICATIONS: Current Medications Medications (Trade) Dose Ordered Sig/Tiera Route PRN Reason Start Time Stop Time Status Last Admin Dose Admin Sodium Chloride (NS Flush) 2 ml UNSCH PRN IV FLUSH FLUSH AFTER USING IV ACCESS 02/10/18 11:15 Potassium Chloride 100 ml @ 25 mls/hr Q2H PRN IV For Potassium 2.8 - 3.2 mEq/L 02/10/18 13:15 Potassium Chloride 100 ml @ 50 mls/hr Q2H PRN IV For Potassium 2.8 - 3.2 mEq/L 02/10/18 13:15 Potassium Bicarb/ Potassium Chloride (K-Lyte Cl Eff) 50 meq UNSCH PRN PO For Potassium 3.3 - 3.5 mEq/L 02/10/18 13:15 02/12/18 09:38 Potassium Chloride 100 ml @ 25 mls/hr UNSCH PRN IV For Potassium 3.3 - 3.5 mEq/L 02/10/18 13:15 Potassium Chloride 100 ml @ 50 mls/hr Q2H PRN IV For Potassium 3.3 - 3.5 mEq/L 02/10/18 13:15 Magnesium Sulfate 4 gm/Sodium Chloride 100 ml @ 50 mls/hr UNSCH PRN IV For Magnesium 0.9 - 1.1 mg/dL 02/10/18 13:15 Magnesium Oxide (Mag-Ox) 800 mg UNSCH PRN PO For Magnesium 1.2 - 1.6 mg/dL 02/10/18 13:15 Magnesium Sulfate 2 gm/Sodium Chloride 100 ml @ 50 mls/hr UNSCH PRN IV For Magnesium 1.2 - 1.6 mg/dL 02/10/18 13:15 Potassium Phosphate (K-Phos) 2,000 mg Q4H PRN PO For Phosphorus < 2.5 mg/dL 02/10/18 13:15 Sodium Phosphate 30 mmol/Sodium Chloride 250 ml @ 42 mls/hr UNSCH PRN IV For Phosphorus < 2.5 mg/dL 02/10/18 13:15 Potassium Phosphate (K-Phos) 2,000 mg UNSCH PRN PO/TUBE SEE LABEL COMMENTS 02/10/18 13:15 Potassium Phosphate 30 mmol/ Sodium Chloride 260 ml @ 42 mls/hr UNSCH PRN IV SEE LABEL COMMENTS 02/10/18 13:15 Chlorhexidine Gluconate (Peridex 0.12% Liq) 15 ml BID@08,20 MT 02/10/18 20:00 02/20/18 08:33 Dextrose (D50w (Vial) Inj) 25 ml UNSCH PRN IV PUSH HYPOGLYCEMIA-SEE COMMENTS 02/10/18 13:15 Insulin Human Regular (NovoLIN R SUPPLEMENTAL SCALE) 1 Q6HR SQ 02/10/18 18:00 02/20/18 11:58 Ondansetron HCl (Zofran Inj) 4 mg Q6H PRN IV PUSH NAUSEA OR VOMITING 02/10/18 13:15 Miscellaneous Information 1 Q361D XX 02/10/18 13:15 02/10/18 13:15 Chlorhexidine Gluconate (Chlorhexidine 2% Cloth) Taper DAILY@04 TOP 02/11/18 04:00 02/07/19 03:59 02/19/18 04:20 Chlorhexidine Gluconate (Chlorhexidine 2% Cloth) 3 pack UNSCH PRN TOP HYGIENIC CARE 02/10/18 13:15 Senna/Docusate Sodium (Anahi-Colace) 1 tab BID PO 02/10/18 21:00 02/20/18 08:31 Magnesium Hydroxide (Milk Of Magnesia Liq) 30 ml Q12H PRN PO Mild constipation 02/10/18 13:15 Sennosides (Senokot) 17.2 mg Q12H PRN PO Moderate constipation 02/10/18 13:15 Bisacodyl (Dulcolax Supp) 10 mg DAILY PRN RECTAL SEVERE CONSITIPATION 02/10/18 13:15 Lactulose (Lactulose Liq) 30 ml DAILY PRN PO SEVERE CONSITIPATION 02/10/18 13:15 Midazolam HCl 100 ml @ 2 mls/hr TITRATE PRN IV SEDATION 02/10/18 14:15 02/20/18 08:30 Lorazepam (Ativan Inj) 2 mg Q1H PRN IV PUSH seizures 02/11/18 15:00 02/14/18 01:48 Propofol 100 ml @ 2.535 mls/ hr TITRATE PRN IV SEDATION 02/11/18 15:00 02/20/18 13:46 Lacosamide 100 mg/ Sodium Chloride 110 ml @ 110 mls/hr Q8H IV 02/15/18 12:00 02/20/18 11:36 Sodium Chloride (NS Flush) See Protocol DAILY IV FLUSH 02/18/18 09:00 02/18/18 09:00 Sodium Chloride (NS Flush) See Protocol UNSCH PRN IV FLUSH SEE PROTOCOL TABLE 02/17/18 17:45 Heparin Sodium (Porcine) (Heparin Central Flush) See Protocol DAILY IV FLUSH 02/18/18 09:00 Heparin Sodium (Porcine) (Heparin Central Flush) See Protocol UNSCH PRN IV FLUSH SEE PROTOCOL TABLE 02/17/18 17:45 Sodium Chloride (NS Flush) UNSCH PRN IV FLUSH SEE PROTOCOL TABLE 02/17/18 17:45 Albuterol/ Ipratropium (Duoneb Neb) 1 ampule Q6HR NEB INH 02/18/18 11:00 02/20/18 14:29 Acetaminophen (Tylenol 650 Mg/ 20 ml Liq) 650 mg Q6H PRN PO fever 02/18/18 09:30 02/18/18 21:32 Artificial Tears (Tears Naturale Opth Soln) 1 drop Q8HR EACH EYE 02/18/18 14:00 02/20/18 13:47 Albuterol Sulfate (Albuterol Neb) 2.5 mg Q2HR NEB PRN NEB dyspnea 02/18/18 09:30 02/19/18 00:33 Labetalol HCl (Trandate Inj) 10 mg Q1H PRN IV PUSH SBP>170, DBP>90 02/18/18 09:30 Hydralazine HCl (Apresoline Inj) 10 mg Q1H PRN IV SBP > 170 02/18/18 09:30 Lansoprazole (Prevacid Odt) 30 mg DAILY NG 02/19/18 09:00 02/20/18 08:31 Montelukast Sodium (Singulair) 10 mg HS PO 02/18/18 21:00 02/19/18 20:51 Latanoprost (Xalatan 0.005% Opth Soln) 1 drop HS EACH EYE 02/18/18 21:00 02/19/18 20:53 Polyethylene Glycol (Miralax) 17 gm BID PO 02/18/18 10:00 02/20/18 08:31 Lactulose (Lactulose Liq) 30 ml DAILY PO 02/19/18 09:00 02/20/18 08:31 Enoxaparin Sodium (Lovenox Inj) 40 mg Q24H SQ 02/19/18 06:00 02/20/18 06:39 Nitroglycerin (Nitroglycerin 2% Oint) 2 inch Q6HR PRN TOPICAL SBP>160, DBP>90 02/18/18 13:15 Hydralazine HCl (Apresoline Inj) 10 mg Q1HR PRN IV PUSH SBP>160, DBP>90 02/18/18 13:15 Terbutaline Sulfate (Brethine Inj) 1 mg UNSCH PRN SQ For Extravasation 02/18/18 18:45 Phenylephrine HCl 160 mg/Sodium Chloride 500 ml @ 1.87 mls/hr TITRATE PRN IV Blood pressure management 02/18/18 20:00 02/18/18 22:09 Levothyroxine Sodium (Synthroid) 88 mcg DAILY@0600 PO 02/20/18 06:00 02/20/18 06:39 Valproate Sodium 500 mg/Sodium Chloride 105 ml @ 105 mls/hr Q4HR IV 02/19/18 20:00 02/20/18 16:49 Lisinopril (Prinivil) 5 mg DAILY PO 02/20/18 10:20 02/20/18 11:42 Phenobarbital Sodium (Luminal Inj) 130 mg Q6HR IV 02/20/18 12:00 02/20/18 16:48 OBJECTIVE: Vital Signs Date Time Temp Pulse Resp B/P (MAP) Pulse Ox O2 Delivery O2 Flow Rate FiO2 02/20/18 18:00 86 02/20/18 16:46 97 40 02/20/18 16:00 98.7 90 0 143/63 (89) 100 02/20/18 16:00 90 02/20/18 16:00 40 02/20/18 14:00 90 02/20/18 13:18 97 40 02/20/18 12:00 99.8 101 13 174/76 (108) 81 02/20/18 12:00 101 02/20/18 12:00 40 02/20/18 10:30 97 40 02/20/18 10:00 96 02/20/18 08:00 40 02/20/18 08:00 98.1 74 16 150/65 (93) 92 02/20/18 08:00 74 02/20/18 08:00 96 40 02/20/18 06:00 82 02/20/18 04:00 99.0 82 16 152/68 (96) 97 02/20/18 04:00 55 02/20/18 04:00 82 02/20/18 03:54 93 55 02/20/18 02:00 88 02/20/18 00:35 100 55 02/20/18 00:00 98.5 79 16 135/63 (87) 99 02/20/18 00:00 55 02/20/18 00:00 88 02/19/18 22:00 80 02/19/18 21:51 100 55 02/19/18 20:00 80 02/19/18 20:00 97.8 80 16 142/63 (89) 98 02/19/18 20:00 55 Laboratory Tests Test 02/19/18 04:00 02/20/18 03:15 White Blood Count 27.7 TH/MM3 20.1 TH/MM3 Red Blood Count 2.74 MIL/MM3 2.35 MIL/MM3 Hemoglobin 9.1 GM/DL 7.8 GM/DL Hematocrit 28.0 % 23.6 % Mean Corpuscular Volume 102.2 FL 100.1 FL Mean Corpuscular Hemoglobin 33.4 PG 33.2 PG Mean Corpuscular Hemoglobin Concent 32.7 % 33.2 % Red Cell Distribution Width 16.4 % 15.8 % Platelet Count 215 TH/MM3 211 TH/MM3 Mean Platelet Volume 9.8 FL 9.2 FL Neutrophils (%) (Auto) 89.5 % 87.0 % Lymphocytes (%) (Auto) 3.6 % 4.9 % Monocytes (%) (Auto) 6.6 % 6.1 % Eosinophils (%) (Auto) 0.2 % 1.8 % Basophils (%) (Auto) 0.1 % 0.2 % Neutrophils # (Auto) 24.8 TH/MM3 17.5 TH/MM3 Lymphocytes # (Auto) 1.0 TH/MM3 1.0 TH/MM3 Monocytes # (Auto) 1.8 TH/MM3 1.2 TH/MM3 Eosinophils # (Auto) 0.1 TH/MM3 0.4 TH/MM3 Basophils # (Auto) 0.0 TH/MM3 0.0 TH/MM3 CBC Comment AUTO DIFF DIFF FINAL Differential Total Cells Counted 100 Neutrophils % (Manual) 30 % Band Neutrophils % 56 % Lymphocytes % 3 % Monocytes % 6 % Neutrophils # (Manual) 25.2 TH/MM3 Metamyelocytes 4 % Myelocytes 1 % Differential Comment FINAL DIFF MANUAL Toxic Granulation 2+ Toxic Vacuolation PRESENT Platelet Estimate NORMAL Platelet Morphology Comment CLUMPED Laboratory Tests Test 02/19/18 04:00 02/20/18 03:15 Blood Urea Nitrogen 37 MG/DL 27 MG/DL Creatinine 0.86 MG/DL 0.49 MG/DL Random Glucose 182 MG/DL 162 MG/DL Total Protein 4.9 GM/DL 5.3 GM/DL Albumin 1.2 GM/DL 1.2 GM/DL Calcium Level 8.0 MG/DL 8.2 MG/DL Phosphorus Level 3.3 MG/DL 1.5 MG/DL Magnesium Level 2.3 MG/DL 2.3 MG/DL Alkaline Phosphatase 97 U/L 87 U/L Aspartate Amino Transf (AST/SGOT) 55 U/L 62 U/L Alanine Aminotransferase (ALT/SGPT) 19 U/L 18 U/L Total Bilirubin 0.3 MG/DL 0.2 MG/DL Sodium Level 143 MEQ/L 145 MEQ/L Potassium Level 3.8 MEQ/L 3.6 MEQ/L Chloride Level 104 MEQ/L 108 MEQ/L Carbon Dioxide Level 29.5 MEQ/L 30.4 MEQ/L Anion Gap 10 MEQ/L 7 MEQ/L Estimat Glomerular Filtration Rate 66 ML/MIN 126 ML/MIN Free Thyroxine 0.50 NG/DL Free Triiodothyronine (T3) pg/dL 0.51 PG/ML Microbiology Date/Time Source Procedure Growth Status 02/19/18 15:13 Blood Line Aerobic Blood Culture - Preliminary NO GROWTH IN 1 DAY Resulted 02/19/18 15:13 Blood Line Anaerobic Blood Culture - Preliminary NO GROWTH IN 1 DAY Resulted 02/19/18 11:39 Blood Peripheral Aerobic Blood Culture - Preliminary NO GROWTH IN 1 DAY Resulted 02/19/18 11:39 Blood Peripheral Anaerobic Blood Culture - Preliminary NO GROWTH IN 1 DAY Resulted 02/19/18 21:30 Sputum Endotracheal Gram Stain - Final Resulted 02/19/18 21:30 Sputum Endotracheal Sputum Culture - Preliminary IMMATURE GROWTH - REINCUBATE Resulted 02/18/18 14:00 Urine Catheterized Urine Urine Culture - Final Kathy Glabrata Complete Imaging: Chest X-Ray 02/20/18 0600 Signed Impressions: Service Date/Time: Tuesday, February 20, 2018 02:58 - CONCLUSION: Stable exam with bibasilar densities and probable pleural effusions. Kashif Forrest MD Renal Ultrasound 02/16/18 0000 Signed Impressions: Service Date/Time: Friday, February 16, 2018 10:17 - CONCLUSION: 1. Unremarkable renal ultrasound examination without evidence for obstructive uropathy. Adin Sanchez MD Head CT 02/10/18 1115 Signed Impressions: Service Date/Time: Saturday, February 10, 2018 12:19 - CONCLUSION: Stable negative noncontrast CT. Mustapha Grossman MD Brain MRI 02/10/18 0000 Signed Impressions: Service Date/Time: Saturday, February 10, 2018 16:30 - CONCLUSION: 1. Stable appearance with no acute hemorrhage, mass or infarction. 2. Moderate atrophic change and stable mild ventricular prominence. Mustapha Grossman MD PHYSICAL EXAMINATION: GENERAL: Patient is sedated and unresponsive. HEENT: Unable to fully assess. The patient cannot cooperate. No icterus. Oropharynx intubated. NECK: Supple, no adenopathy. LUNGS: Diminished breath sounds. HEART: Regular S1 and S2, without audible murmurs, rubs or gallops. ABDOMEN: Obese, soft, diminished bowel sounds. No tenderness appreciated. EXTREMITIES: Diffuse edema with clear fluid filled blisters on the arms. SKIN: No diffuse rash. NEUROLOGIC: Unable to assess. PSYCHIATRIC: Unable to assess. IMPRESSION: 1. Fever in patient with status epilepticus 2. Urinary tract infection due to Kathy. 3. Acute respiratory failure. Probable pneumonia. Sputum culture pending. 4. Loose stools. The patient receiving lactulose. However, prior history of antibiotic use. Probable antibiotic associated. 5. Probable sepsis. RECOMMENDATIONS: 1. Begin Zosyn. Inadvertently this was not ordered yesterday. 2. Monitor sputum culture. 3. Monitor white blood cell count. 4. Monitor blood cultures. 5. Monitor clinical status. 6. Obtain stool Clostridium difficile toxin since the patient has been on antibiotics previously. Stool C. difficile toxin PCR has been ordered. Irving Rolle MD Feb 20, 2018 20:00
[2018-02-20] MEDS: LATANOPROST 0.005% OPHT SOLN 2.5 ML BTL EACH EYE SCH (21:00)
[2018-02-20 21:28] LABS: PHOSPHORUS 2.7 MG/DL (2.5-4.9)
[2018-02-21] VITALS (17 sets, daily range): BP systolic 123–172; BP diastolic 58–73; PULSE 76–101; RESP 12–24; TEMP 98.1–100; O2SAT 90–100
[2018-02-21] MEDS: VALPROATE INJ 500 MG in SODIUM CHLORIDE 0.9% INJ 100 ML IV SCH ×8 (01:53→23:38)
[2018-02-21] MEDS: PIPERACIL-TAZO 3.375 GM PREMIX 50 ML IV SCH ×5 (01:53→21:23)
[2018-02-21] MEDS: LACOSAMIDE INJ 100 MG in SODIUM CHLORIDE 0.9% INJ 100 ML IV SCH ×4 (01:53→21:23)
[2018-02-21] MEDS: DOCUSATE SODIUM 50 MG/SENNA 8.6 MG TAB PO SCH ×3 (01:54→20:16)
[2018-02-21] MEDS: MONTELUKAST SODIUM 10 MG TAB PO SCH ×2 (01:54→20:16)
[2018-02-21] MEDS: PROPOFOL 1000 MG/100 ML INJ 100 ML IV PRN (01:55)
[2018-02-21] MEDS: PHENobarbital SOD 130 MG/ML VIAL IV SCH ×5 (01:58→23:38)
[2018-02-21] MEDS: RESP: ALBUTEROL 2.5 MG/IPRATROPIUM 0.5 MG NEB (SCH) INH ×4 (03:58→20:12)
--- NOTE | 2018-02-21 05:13 | RADRPT ---
EXAM DATE/TIME: 02/21/2018 03:25 [place] COMPARISON: CHEST SINGLE AP, February 20, 2018, 2:58. INDICATIONS : Short of breath. MEDICAL HISTORY : Arthritis. Hypertension Seizures SURGICAL HISTORY : Hysterectomy. section. ENCOUNTER: Subsequent ACUITY: 1 week PAIN SCORE: 0/10 LOCATION: Bilateral chest FINDINGS: A single view of the chest demonstrates bibasilar densities greater right lower lobe. Suspect pleural effusions. Cardiomegaly. Endotracheal tube and nasogastric tube unchanged in position. Osseous stru ctures are intact. CONCLUSION: Bibasilar densities and probable pleural effusions. Kashif Forrest MD on February 21, 2018 at 5:10 Board Certified Radiologist. This report was verified electronically.
[2018-02-21] MEDS: INSULIN NovoLIN REGULAR SUPPLEMENTAL SCALE SQ SCH ×4 (06:00→17:27)
[2018-02-21] MEDS: ENOXAPARIN SODIUM 40 MG/0.4 ML SYRINGE SQ SCH (06:00)
[2018-02-21] MEDS: ARTIFICIAL TEARS OPTH SOLN 15 ML BTL EACH EYE SCH ×3 (06:21→22:00)
[2018-02-21] MEDS: LEVOTHYROXINE SODIUM 88 MCG TAB PO SCH (06:24)
[2018-02-21 06:59] LABS: AUTOMATED NEUTROPHIL # 10.9 TH/MM3 (1.8-7.7); BASOPHIL # 0.1 TH/MM3 (0-0.2); BASOPHIL % 0.8 % (0.0-2.0); EOSINOPHIL # 0.4 TH/MM3 (0-0.4); EOSINOPHIL % 2.8 % (0.0-4.0); HEMATOCRIT 23.2 % (35.0-46.0); HEMOGLOBIN 7.7 GM/DL (11.6-15.3); LYMPH % 7.6 % (9.0-44.0); MEAN CELL VOLUME 99.8 FL (80.0-100.0); MEAN CORPUSCULAR HGB CONC 33.1 % (32.0-36.0); MEAN PLATELET VOLUME 9.6 FL (7.0-11.0); MONO % 5.6 % (0.0-8.0); MONOCYTE # 0.7 TH/MM3 (0-0.9); NEUT % 83.2 % (16.0-70.0); PLATELET COUNT 253 TH/MM3 (150-450); RED BLOOD COUNT 2.32 MIL/MM3 (4.00-5.30); WHITE BLOOD COUNT 13.1 TH/MM3 (4.0-11.0)
[2018-02-21 07:14] LABS: ALBUMIN 1.3 GM/DL (3.4-5.0); ALT (GPT) 17 U/L (10-53); AST (GOT) 35 U/L (15-37); BICARBONATE 31.5 MEQ/L (21.0-32.0); BLOOD UREA NITROGEN 22 MG/DL (7-18); CALCIUM 8.4 MG/DL (8.5-10.1); CHLORIDE 109 MEQ/L (98-107); CREATININE 0.44 MG/DL (0.50-1.00); GLOMERULAR FILTRATION RATE 142 ML/MIN (>89); GLUCOSE,RANDOM 163 MG/DL (74-106); MAGNESIUM 2.3 MG/DL (1.5-2.5); SODIUM (NA) 147 MEQ/L (136-145)
[2018-02-21 07:18] LABS: ALKALINE PHOSPHATASE 84 U/L (45-117); PHOSPHORUS 2.6 MG/DL (2.5-4.9); TOTAL BILIRUBIN ADULT 0.1 MG/DL (0.2-1.0); TOTAL PROTEIN 5.6 GM/DL (6.4-8.2)
[2018-02-21 08:04] LABS: BANDS 15 % (0-6); LYMPHOCYTES 5 % (9-44); METAMYELOCYTES 4 % (0-1); MONOCYTES 10 % (0-8); NEUTROPHIL # MANUAL DIFF 10.9 TH/MM3 (1.8-7.7); POLYS (SEG NEUTROPHILS) 64 % (16-70)
[2018-02-21] MEDS: LISINOPRIL 5 MG TAB PO SCH (09:51)
[2018-02-21] MEDS: SODIUM CHLORIDE 0.9% FLUSH 10 ML FLUSH IV FLUSH SCH (09:51)
[2018-02-21] MEDS: LACTULOSE SYRUP 20 GM/30 ML CUP PO SCH (09:52)
[2018-02-21] MEDS: LANSOPRAZOLE SOLUTAB 30 MG TAB NG SCH (09:52)
[2018-02-21] MEDS: POLYETHYLENE GLYCOL 17 GM PKG PO SCH ×2 (09:52→20:16)
[2018-02-21] MEDS: CHLORHEXIDINE 0.12% (ORAL KIT) 15 ML CUP MT SCH ×2 (10:30→20:00)
--- NOTE | 2018-02-21 11:58 | HHI.CCPN ---
Subjective Remarks/Hospital Course This is a 67-year-old female with a history of poorly controlled seizures who presents with acute altered mental status. She was last seen normal at 3 AM this morning. Initially she was considered to be a stroke alert, however CT noncontrasted brain was negative and her nonfocal appearance was much more suggestive of seizures and stroke, along with the fact that her last seen normal time was significantly delayed. Stat EEG was ordered and she was found to be in status epilepticus. She was emergently intubated due to her poor mental status. I was called immediately down to the bedside for the EEG demonstrating status. At the bedside, I pushed 10 mg of Versed IV 1 and started her on a Versed drip at 10 mg an hour. No information is available from the patient due to her mental status. ROS is unobtainable. The majority of the information I have is obtained from medical record, and in specifically the H&P documented by Dr. Guerra back in October 2017, which is very helpful. In reading through her chart, it appears that when she comes off her Topamax, she goes into status. It appears that she has recently come off Topamax again due to side effects. She is anaphylactically allergic to Keppra and phenytoin, so these are not available to us to use. Versed drip was used successfully in her last admission October 2017, so that is what we have chosen. I have spoken with Dr. Headley who is not only an on-call neurologist but her personal neurologist who sees her frequently, and he agrees with this plan. He also thinks that Vimpat is a good option for seizure control, which I agree with. We will plan to load her with that. 02/11/18: Remains encephalopathy on the vent. No spontaneous movement noted when Versed is held. Will get a repeat EEG today. Wean sedation only if seizure controlled 02/12: Calm now, no convulsive activity. EEG result pending. Midazolam at 10. 02/13: On continuous EEG monitoring, no seizures noted. Versed had been weaned down to 5 mg/h, propofol at 20 mcg/kg/min. Patient does not open eyes or moves spontaneously 02/14: On attempted sedation wean yesterday night patient developed 2 episodes of seizures. Currently no clinical seizures. I discussed with Dr. Headley, will start phenobarbital 90 mg IV every 8 hours. Repeat EEG today. Currently back on 50 mcg/kg/min of propofol, Versed 7 mg per hour 02/15: Remains heavily sedated, started on phenobarbital IV yesterday. Level only 2.8. Will increase dose to 120 mg every 8 hours repeat level in a.m. EEG today pending. No sedation weaning without clearance from Dr. Headley. EEG yesterday showed some left-sided phase reversal. Leukocytosis with bandemia noted, will re culture 02/16: Pt had persistent epileptiform activity on eeg 02/[address] Headley. No sedation vacation until repeat EEG shows resolution. I have updated about this at the bedside. Repeat cultures pending at this time. Check renal ultrasound as the patient had recent hydronephrosis, ureteral stent. Patient remains critically ill in severely encephalopathic due to uncontrolled seizures 02/17: remains deeply sedated for status epilepticus. phenobarb level 55.[address] Headley managing anti-epileptics: very difficult to control seizures as well as difficult medication titration given multiple anaphylactic allergies to anticonvulsants. 02/18: T-max 100. Currently 99.4. Tolerating tube feeding. No bowel movement. 4 days. Remains sedated on midazolam and propofol drips 02/19: T-max 101.6. Currently 99.6. Tolerating tube feeds. 2 problems overnight. Remains on midazolam and propofol drips and phenobarbital, valproic acid and lacosamide 02/20: Afebrile. Propofol increased to 30 mg/kg/min overnight. Suppressing seizures currently. Increasing antiepileptics per neurology. Tolerating tube feeding. Positive BM. Subjective 02/21: Afebrile. Off propofol drip. Midazolam drip at 1 mg an hour. No signs of seizure activity on the last 2 EEGs. Tolerating tube feeding. Positive BM. Objective Vital Signs Date Time Temp Pulse Resp B/P (MAP) Pulse Ox O2 Delivery O2 Flow Rate FiO2 02/21/18 07:41 94 40 02/21/18 06:00 94 02/21/18 04:00 98.6 17 172/73 (106) Intake and Output 02/21/18 02/21/18 02/22/18 08:00 16:00 00:00 Intake Total 889 ml Output Total 1150 ml Balance -261 ml Result Diagram: 02/21/18 0500 02/21/18 0500 Other Results Microbiology Date/Time Source Procedure Growth Status 02/19/18 15:13 Blood Line Aerobic Blood Culture - Preliminary NO GROWTH IN 2 DAYS Resulted 02/19/18 15:13 Blood Line Anaerobic Blood Culture - Preliminary NO GROWTH IN 2 DAYS Resulted 02/19/18 21:30 Sputum Endotracheal Gram Stain - Final Complete 02/19/18 21:30 Sputum Endotracheal Sputum Culture - Final HEAVY GROWTH NORMAL RESPIRATORY EZEKIEL Complete 02/18/18 14:00 Urine Catheterized Urine Urine Culture - Final Kathy Glabrata Complete Imaging Last Impressions Chest X-Ray 02/21/18 0600 Signed Impressions: Service Date/Time: Wednesday, February 21, 2018 03:25 - CONCLUSION: Bibasilar densities and probable pleural effusions. Kashif Forrest MD Renal Ultrasound 02/16/18 0000 Signed Impressions: Service Date/Time: Friday, February 16, 2018 10:17 - CONCLUSION: 1. Unremarkable renal ultrasound examination without evidence for obstructive uropathy. Adin Sanchez MD Head CT 02/10/18 1115 Signed Impressions: Service Date/Time: Saturday, February 10, 2018 12:19 - CONCLUSION: Stable negative noncontrast CT. Mustapha Grossman MD Brain MRI 02/10/18 0000 Signed Impressions: Service Date/Time: Saturday, February 10, 2018 16:30 - CONCLUSION: 1. Stable appearance with no acute hemorrhage, mass or infarction. 2. Moderate atrophic change and stable mild ventricular prominence. Mustapha Grossman MD Objective Remarks GENERAL: 67-year-old female currently orotracheally intubated HEENT: Normocephalic. Atraumatic. Pupils 2mm, equal, round, reactive, conjugate. Mucous membranes are moist and pink.. NECK: Trachea is midline. Orally intubated. CHEST: Essentially clear to auscultation bilaterally without wheezes rales rhonchi CARDIOVASCULAR: RRR. S1, S2 no strip without murmur ABDOMEN: Soft, nontender, nondistended. No guarding. MUSCULOSKELETAL: Pulses 2+. No peripheral edema. NEUROLOGICAL: . No withdrawal while on midazolam and propofol. No spontaneous eye opening or movements. (Unable to wean sedation) positive gag. Positive cough. Positive corneal reflex. SKIN: Bullous/clear areas bilateral upper extremities right greater than left. Vascular Central Line Catheter: Yes Assessment to: Continue Date of Insertion: Feb 17, 2018 Line: PICC Side: Left Location: Antecubital A/P Assessment and Plan Neuro/Psych: Status epilepticus Elevated IOP Acute encephalopathy Currently on midazolam drip at 1 mg an hour, and off propofol drip for sedation while intubated Continue valproate 500 mg IV every 4 hours. Level currently 48. Bolus 500 mg IV 1 now Continue phenobarbital 130 mg IV every 6 hours. Level currently 30 Continue lacosamide 100 mg IV every 8 hours. MRI brain 02/10 revealed mild ventricular enlargement. Atrophy. EEG 02/20 revealed moderate to severe encephalopathy. No epileptiform activity EEG brain 02/18 revealed suppressed platelets. EEG brain 02/16 revealed left frontal central spiking. -EEG 02/15/18 showed persistent seizure activity 02/14 probable phase reversal noted on left side. 02/15 persistent seizures -EEG repeat 02/12 no active seizures. -No sedation vacation until cleared by Dr. Headley -Continue ICU care, frequent neuro checks At home on valproic acid 500 mg 3 times daily with 250 mg at night Acetaminophen 650 mg every 6 hours as needed fever Continue bimatoprost 0.01% 1 drop each eye at night with appropriate hospital substitution latanoprost 0.005% 1 drop each eye at night Resp: Acute respiratory failure/hypoxic and hypercapnic ACV 15/500/5/40 Ventilator bundle Albuterol/ipratropium aerosols every 6 hours with albuterol aerosols every 2 hours as needed dyspnea Continue montelukast 10 mg by tube daily Spontaneous breathing trials when okay with neurology Follow chest x-ray in a.m. 02/21 revealed bilateral pleural effusion/infiltrates CV: Hypertension Dyslipidemia Currently on phenylephrine drip at 10 mcg/min to maintain mean arterial pressure greater than 65 When appropriate lisinopril 20 mg p.o. daily/home medication for hypertension can be decreased to 5 mg daily. Hold while on vasopressors As needed hydralazine/labetalol to keep systolic blood pressure less than 170 Continue aspirin 81 mg p.o. daily Continue ezetimibe 10 mg p.o. daily for dyslipidemia GI OG tube and tube feeds with vital high-protein goal 65 cc/h per nutrition's recommendations Lansoprazole for GI prophylaxis Docusate sodium/senna 1 tablet twice daily for bowel regimen Continue free water 100 mL every 6 hours : Overactive bladder Recent ureteral stent for hydronephrosis -daily BMP. Sodium slowly improving -ICU electrolyte protocol. Keep Mag>2 Renal ultrasound revealed no hydronephrosis 02/16 Currently holding oxybutynin 5 mg daily ID: -UTI with E. coli 02/10 Funguria Will discontinue cefepime 2 g IV every 8 hours 02/18 with status epilepticus. Currently piperacillin/tazobactam day #3 per infectious disease Pertinent cultures No growth to date blood cultures 2 and sputum 02/19 02/18 -urine culture -C glabrata 02/15 -UA -no growth 02/15 blood cultures 2 -no growth 02/10 -UA -E. coli HEME: Leukocytosis Macrocytic anemia -Monitor CBC. Follow trend Endo Mild hyperglycemia Hypothyroidism Sliding scale insulin with NovoLog with Accu-Cheks to maintain euglycemia/low regimen every 6 hours Continue levothyroxine 75 mcg by tube daily recheck TSH was 10.4. Will increase levothyroxine to 88 mcg daily Access -Left antecubital PICC line placed 02/17/dual-lumen Prophylaxis -GI -lansoprazole -DVT -SCD/enoxaparin Level 3 follow-up. Discussed with at bedside. Care plan discussed and all questions answered. Tonny Lomeli MD Feb 21, 2018 11:58
[2018-02-21] MEDS ORDERED: VALPROATE INJ 500 MG in SODIUM CHLORIDE 0.9% INJ 100 ML IV ONE (12:00)
[2018-02-21] MEDS: hydrALAZINE HCL 20 MG/ML VIAL IV PUSH PRN (13:14)
--- NOTE | 2018-02-21 16:07 | HHI.IDPN ---
Note Infectious Disease Note Patient is on the ventilator. Reported to have some grimacing. Sedation has been lifted. No new seizure activity noted. Low-grade fever. No acute distress. Sputum cultures has normal beka. Presented to the emergency department on 02/10/2018 with acute altered mental status. She was found to be with status epilepticus. In the emergency department, the temperature phyllis to 103 degrees on the evening of admission. She was intubated and EEG has been repeatedly performed and shows that she is continuing to have seizure activity. The patient continues to have fever with temperature spike of 102 early today. She received IV antibiotic treatment for urinary tract infection due to Escherichia coli, which was cultured on admission urine culture. PAST MEDICAL HISTORY: Hypertension, hyperlipidemia, seizure disorder, urinary incontinence, history of back surgery, history of shoulder surgery, hysterectomy, history of knee surgery. ALLERGIES: FLUCONAZOLE, PHENYTOIN, RIFAMPIN, LEVETIRACETAM, HYDROMORPHONE. MEDICATIONS: Current Medications Medications (Trade) Dose Ordered Sig/Tiera Route PRN Reason Start Time Stop Time Status Last Admin Dose Admin Sodium Chloride (NS Flush) 2 ml UNSCH PRN IV FLUSH FLUSH AFTER USING IV ACCESS 02/10/18 11:15 Potassium Chloride 100 ml @ 25 mls/hr Q2H PRN IV For Potassium 2.8 - 3.2 mEq/L 02/10/18 13:15 Potassium Chloride 100 ml @ 50 mls/hr Q2H PRN IV For Potassium 2.8 - 3.2 mEq/L 02/10/18 13:15 Potassium Bicarb/ Potassium Chloride (K-Lyte Cl Eff) 50 meq UNSCH PRN PO For Potassium 3.3 - 3.5 mEq/L 02/10/18 13:15 02/12/18 09:38 Potassium Chloride 100 ml @ 25 mls/hr UNSCH PRN IV For Potassium 3.3 - 3.5 mEq/L 02/10/18 13:15 Potassium Chloride 100 ml @ 50 mls/hr Q2H PRN IV For Potassium 3.3 - 3.5 mEq/L 02/10/18 13:15 Magnesium Sulfate 4 gm/Sodium Chloride 100 ml @ 50 mls/hr UNSCH PRN IV For Magnesium 0.9 - 1.1 mg/dL 02/10/18 13:15 Magnesium Oxide (Mag-Ox) 800 mg UNSCH PRN PO For Magnesium 1.2 - 1.6 mg/dL 02/10/18 13:15 Magnesium Sulfate 2 gm/Sodium Chloride 100 ml @ 50 mls/hr UNSCH PRN IV For Magnesium 1.2 - 1.6 mg/dL 02/10/18 13:15 Potassium Phosphate (K-Phos) 2,000 mg Q4H PRN PO For Phosphorus < 2.5 mg/dL 02/10/18 13:15 Sodium Phosphate 30 mmol/Sodium Chloride 250 ml @ 42 mls/hr UNSCH PRN IV For Phosphorus < 2.5 mg/dL 02/10/18 13:15 Potassium Phosphate (K-Phos) 2,000 mg UNSCH PRN PO/TUBE SEE LABEL COMMENTS 02/10/18 13:15 Potassium Phosphate 30 mmol/ Sodium Chloride 260 ml @ 42 mls/hr UNSCH PRN IV SEE LABEL COMMENTS 02/10/18 13:15 Chlorhexidine Gluconate (Peridex 0.12% Liq) 15 ml BID@08,20 MT 02/10/18 20:00 02/21/18 10:30 Dextrose (D50w (Vial) Inj) 25 ml UNSCH PRN IV PUSH HYPOGLYCEMIA-SEE COMMENTS 02/10/18 13:15 Insulin Human Regular (NovoLIN R SUPPLEMENTAL SCALE) 1 Q6HR SQ 02/10/18 18:00 02/21/18 06:28 Ondansetron HCl (Zofran Inj) 4 mg Q6H PRN IV PUSH NAUSEA OR VOMITING 02/10/18 13:15 Miscellaneous Information 1 Q361D XX 02/10/18 13:15 02/10/18 13:15 Chlorhexidine Gluconate (Chlorhexidine 2% Cloth) Taper DAILY@04 TOP 02/11/18 04:00 02/07/19 03:59 02/19/18 04:20 Chlorhexidine Gluconate (Chlorhexidine 2% Cloth) 3 pack UNSCH PRN TOP HYGIENIC CARE 02/10/18 13:15 Senna/Docusate Sodium (Anahi-Colace) 1 tab BID PO 02/10/18 21:00 02/21/18 09:52 Magnesium Hydroxide (Milk Of Magnesia Liq) 30 ml Q12H PRN PO Mild constipation 02/10/18 13:15 Sennosides (Senokot) 17.2 mg Q12H PRN PO Moderate constipation 02/10/18 13:15 Bisacodyl (Dulcolax Supp) 10 mg DAILY PRN RECTAL SEVERE CONSITIPATION 02/10/18 13:15 Lactulose (Lactulose Liq) 30 ml DAILY PRN PO SEVERE CONSITIPATION 02/10/18 13:15 Midazolam HCl 100 ml @ 2 mls/hr TITRATE PRN IV SEDATION 02/10/18 14:15 02/20/18 08:30 Lorazepam (Ativan Inj) 2 mg Q1H PRN IV PUSH seizures 02/11/18 15:00 02/14/18 01:48 Propofol 100 ml @ 2.535 mls/ hr TITRATE PRN IV SEDATION 02/11/18 15:00 02/21/18 01:55 Lacosamide 100 mg/ Sodium Chloride 110 ml @ 110 mls/hr Q8H IV 02/15/18 12:00 02/21/18 13:56 Sodium Chloride (NS Flush) See Protocol DAILY IV FLUSH 02/18/18 09:00 02/21/18 09:51 Sodium Chloride (NS Flush) See Protocol UNSCH PRN IV FLUSH SEE PROTOCOL TABLE 02/17/18 17:45 Heparin Sodium (Porcine) (Heparin Central Flush) See Protocol DAILY IV FLUSH 02/18/18 09:00 02/21/18 09:52 Heparin Sodium (Porcine) (Heparin Central Flush) See Protocol UNSCH PRN IV FLUSH SEE PROTOCOL TABLE 02/17/18 17:45 Sodium Chloride (NS Flush) UNSCH PRN IV FLUSH SEE PROTOCOL TABLE 02/17/18 17:45 02/21/18 09:51 Acetaminophen (Tylenol 650 Mg/ 20 ml Liq) 650 mg Q6H PRN PO fever 02/18/18 09:30 02/18/18 21:32 Artificial Tears (Tears Naturale Opth Soln) 1 drop Q8HR EACH EYE 02/18/18 14:00 02/21/18 13:58 Albuterol Sulfate (Albuterol Neb) 2.5 mg Q2HR NEB PRN NEB dyspnea 02/18/18 09:30 02/19/18 00:33 Labetalol HCl (Trandate Inj) 10 mg Q1H PRN IV PUSH SBP>170, DBP>90 02/18/18 09:30 Lansoprazole (Prevacid Odt) 30 mg DAILY NG 02/19/18 09:00 02/21/18 09:52 Montelukast Sodium (Singulair) 10 mg HS PO 02/18/18 21:00 02/21/18 01:54 Latanoprost (Xalatan 0.005% Opth Soln) 1 drop HS EACH EYE 02/18/18 21:00 02/20/18 21:00 Polyethylene Glycol (Miralax) 17 gm BID PO 02/18/18 10:00 02/21/18 09:52 Lactulose (Lactulose Liq) 30 ml DAILY PO 02/19/18 09:00 02/21/18 09:52 Enoxaparin Sodium (Lovenox Inj) 40 mg Q24H SQ 02/19/18 06:00 02/21/18 06:00 Nitroglycerin (Nitroglycerin 2% Oint) 2 inch Q6HR PRN TOPICAL SBP>160, DBP>90 02/18/18 13:15 Hydralazine HCl (Apresoline Inj) 10 mg Q1HR PRN IV PUSH SBP>160, DBP>90 02/18/18 13:15 02/21/18 13:14 Terbutaline Sulfate (Brethine Inj) 1 mg UNSCH PRN SQ For Extravasation 02/18/18 18:45 Phenylephrine HCl 160 mg/Sodium Chloride 500 ml @ 1.87 mls/hr TITRATE PRN IV Blood pressure management 02/18/18 20:00 02/18/18 22:09 Levothyroxine Sodium (Synthroid) 88 mcg DAILY@0600 PO 02/20/18 06:00 02/21/18 06:24 Valproate Sodium 500 mg/Sodium Chloride 105 ml @ 105 mls/hr Q4HR IV 02/19/18 20:00 02/21/18 13:59 Lisinopril (Prinivil) 5 mg DAILY PO 02/20/18 10:20 02/21/18 09:51 Phenobarbital Sodium (Luminal Inj) 130 mg Q6HR IV 02/20/18 12:00 02/21/18 13:57 Piperacillin Sod/ Tazobactam Sod 50 ml @ 100 mls/hr Q6H IV 02/20/18 20:15 02/21/18 13:57 Albuterol/ Ipratropium (Duoneb Neb) 1 ampule Q6HR NEB INH 02/21/18 16:00 02/21/18 15:35 OBJECTIVE: Vital Signs Date Time Temp Pulse Resp B/P (MAP) Pulse Ox O2 Delivery O2 Flow Rate FiO2 02/21/18 15:34 95 40 02/21/18 12:02 94 40 02/21/18 07:41 94 40 02/21/18 06:00 94 02/21/18 04:00 40 02/21/18 04:00 94 02/21/18 04:00 98.6 94 17 172/73 (106) 96 02/21/18 04:00 96 40 02/21/18 02:00 79 02/21/18 00:00 79 02/21/18 00:00 40 02/21/18 00:00 98.1 76 24 123/64 (83) 93 02/20/18 23:07 99 40 02/20/18 22:00 92 02/20/18 20:00 92 02/20/18 20:00 40 02/20/18 20:00 99.5 92 16 146/63 (90) 98 02/20/18 19:57 97 40 02/20/18 18:00 86 02/20/18 16:46 97 40 Laboratory Tests Test 02/20/18 03:15 02/21/18 05:00 White Blood Count 20.1 TH/MM3 13.1 TH/MM3 Red Blood Count 2.35 MIL/MM3 2.32 MIL/MM3 Hemoglobin 7.8 GM/DL 7.7 GM/DL Hematocrit 23.6 % 23.2 % Mean Corpuscular Volume 100.1 FL 99.8 FL Mean Corpuscular Hemoglobin 33.2 PG 33.0 PG Mean Corpuscular Hemoglobin Concent 33.2 % 33.1 % Red Cell Distribution Width 15.8 % 16.0 % Platelet Count 211 TH/MM3 253 TH/MM3 Mean Platelet Volume 9.2 FL 9.6 FL Neutrophils (%) (Auto) 87.0 % 83.2 % Lymphocytes (%) (Auto) 4.9 % 7.6 % Monocytes (%) (Auto) 6.1 % 5.6 % Eosinophils (%) (Auto) 1.8 % 2.8 % Basophils (%) (Auto) 0.2 % 0.8 % Neutrophils # (Auto) 17.5 TH/MM3 10.9 TH/MM3 Lymphocytes # (Auto) 1.0 TH/MM3 1.0 TH/MM3 Monocytes # (Auto) 1.2 TH/MM3 0.7 TH/MM3 Eosinophils # (Auto) 0.4 TH/MM3 0.4 TH/MM3 Basophils # (Auto) 0.0 TH/MM3 0.1 TH/MM3 CBC Comment DIFF FINAL AUTO DIFF Differential Comment FINAL DIFF MANUAL Differential Total Cells Counted 100 Neutrophils % (Manual) 64 % Band Neutrophils % 15 % Lymphocytes % 5 % Monocytes % 10 % Eosinophils % 2 % Neutrophils # (Manual) 10.9 TH/MM3 Metamyelocytes 4 % Platelet Estimate NORMAL Platelet Morphology Comment NORMAL Laboratory Tests Test 02/20/18 03:15 02/20/18 20:22 02/21/18 05:00 Blood Urea Nitrogen 27 MG/DL 22 MG/DL Creatinine 0.49 MG/DL 0.44 MG/DL Random Glucose 162 MG/DL 163 MG/DL Total Protein 5.3 GM/DL 5.6 GM/DL Albumin 1.2 GM/DL 1.3 GM/DL Calcium Level 8.2 MG/DL 8.4 MG/DL Phosphorus Level 1.5 MG/DL 2.7 MG/DL 2.6 MG/DL Magnesium Level 2.3 MG/DL 2.3 MG/DL Alkaline Phosphatase 87 U/L 84 U/L Aspartate Amino Transf (AST/SGOT) 62 U/L 35 U/L Alanine Aminotransferase (ALT/SGPT) 18 U/L 17 U/L Total Bilirubin 0.2 MG/DL 0.1 MG/DL Sodium Level 145 MEQ/L 147 MEQ/L Potassium Level 3.6 MEQ/L 4.3 MEQ/L 4.0 MEQ/L Chloride Level 108 MEQ/L 109 MEQ/L Carbon Dioxide Level 30.4 MEQ/L 31.5 MEQ/L Anion Gap 7 MEQ/L 7 MEQ/L Estimat Glomerular Filtration Rate 126 ML/MIN 142 ML/MIN Microbiology Date/Time Source Procedure Growth Status 02/19/18 15:13 Blood Line Aerobic Blood Culture - Preliminary NO GROWTH IN 2 DAYS Resulted 02/19/18 15:13 Blood Line Anaerobic Blood Culture - Preliminary NO GROWTH IN 2 DAYS Resulted 02/19/18 11:39 Blood Peripheral Aerobic Blood Culture - Preliminary NO GROWTH IN 2 DAYS Resulted 02/19/18 11:39 Blood Peripheral Anaerobic Blood Culture - Preliminary NO GROWTH IN 2 DAYS Resulted 02/19/18 21:30 Sputum Endotracheal Gram Stain - Final Complete 02/19/18 21:30 Sputum Endotracheal Sputum Culture - Final HEAVY GROWTH NORMAL RESPIRATORY BEKA Complete Imaging: Chest X-Ray 02/21/18 0600 Signed Impressions: Service Date/Time: Wednesday, February 21, 2018 03:25 - CONCLUSION: Bibasilar densities and probable pleural effusions. Kashif Forrest MD Chest X-Ray 02/20/18 0600 Signed Impressions: Service Date/Time: Tuesday, February 20, 2018 02:58 - CONCLUSION: Stable exam with bibasilar densities and probable pleural effusions. Kashif Forrest MD Renal Ultrasound 02/16/18 0000 Signed Impressions: Service Date/Time: Friday, February 16, 2018 10:17 - CONCLUSION: 1. Unremarkable renal ultrasound examination without evidence for obstructive uropathy. Adin Sanchez MD Head CT 02/10/18 1115 Signed Impressions: Service Date/Time: Saturday, February 10, 2018 12:19 - CONCLUSION: Stable negative noncontrast CT. Mustapha Grossman MD Brain MRI 02/10/18 0000 Signed Impressions: Service Date/Time: Saturday, February 10, 2018 16:30 - CONCLUSION: 1. Stable appearance with no acute hemorrhage, mass or infarction. 2. Moderate atrophic change and stable mild ventricular prominence. Mustapha Grossman MD PHYSICAL EXAMINATION: GENERAL: Patient is sedated. HEENT: Unable to fully assess. The patient cannot cooperate. No icterus. Oropharynx intubated. NECK: Supple, no adenopathy. LUNGS: Diminished breath sounds. HEART: Regular S1 and S2, without audible murmurs, rubs or gallops. ABDOMEN: Obese, soft, diminished bowel sounds. No tenderness appreciated. EXTREMITIES: Diffuse edema with clear fluid filled blisters on the arms. SKIN: No diffuse rash. NEUROLOGIC: Unable to assess. PSYCHIATRIC: Unable to assess. IMPRESSION: 1. Fever in patient with status epilepticus 2. Urinary tract infection due to Kathy. 3. Acute respiratory failure. Probable pneumonia. Sputum culture has normal beka. WBC decreased. 4. Loose stools. The patient receiving lactulose. However, prior history of antibiotic use. Probable antibiotic associated. C. difficile negative. 5. Probable sepsis. RECOMMENDATIONS: 1. Continue Zosyn. 2. Monitor sputum culture. 3. Monitor white blood cell count. 4. Monitor blood cultures. 5. Monitor clinical status. Irving Rolle MD Feb 21, 2018 16:07
--- NOTE | 2018-02-21 17:34 | PD.WCN.NOT ---
Wound Consult Description: Received consult for evaluation of pressure ulcer to coccyx from Doctor Yani Communicated with: Doctor Yani and Rn Polly Recommendation: Plase apply ultra sorb pads under patient's arms for weeping and change as needed. Leave All roofed and unroofed bullae open to air Additional Information: Late entry from 02/20/2018:Patient seen on 5 th floor [facility] [place]20/2018 for coccyx , also assessed bilateral arms with diffuse roofed and unroofed bullae to RUE and Roofed bulla to LUE. BUE noted with moderate serous weeping. Ultra sorb pads in place for drainage. Do not recommend covering open bullae at this time due to roofed bullae and moderate weeping. Please continue to place ultra sorb pads under BUE for drainage management. Laurence Clayton [facility] Feb 21, 2018 17:34
[2018-02-21] MEDS: BACITRACIN TOP OINT 15 GM TUBE TOPICAL SCH (20:16)
[2018-02-21] MEDS: LATANOPROST 0.005% OPHT SOLN 2.5 ML BTL EACH EYE SCH (20:18)
--- NOTE | 2018-02-21 21:53 | MG ---
cc: Agapito Cunningham MD EEG RECORD #[id number] DATE OF : 1950 2-3 Hz delta activity with intermixed theta 20-50 microvolts. No driving with photic stimulation. Mild EEG variability, limited reactivity. Single lead EKG showing sinus rhythm. INTERPRETATION: Moderate encephalopathy. Clinical correlation. Agapito Cunningham MD MG/rt , 09:33 PM , 09:52 PM
[2018-02-22] VITALS (23 sets, daily range): BP systolic 121–209; BP diastolic 58–87; PULSE 75–96; RESP 0–30; TEMP 98.6–100.7; O2SAT 95–100
[2018-02-22] MEDS: CHLORHEXIDINE GLUCONATE 2 % 1 PACK (2 CLOTHS) TOP SCH (01:47)
[2018-02-22] MEDS: PIPERACIL-TAZO 3.375 GM PREMIX 50 ML IV SCH ×2 (01:48→08:14)
[2018-02-22] MEDS: RESP: ALBUTEROL 2.5 MG/IPRATROPIUM 0.5 MG NEB (SCH) INH ×4 (03:03→20:46)
[2018-02-22] MEDS: VALPROATE INJ 500 MG in SODIUM CHLORIDE 0.9% INJ 100 ML IV SCH ×5 (04:18→19:56)
[2018-02-22] MEDS: LACOSAMIDE INJ 100 MG in SODIUM CHLORIDE 0.9% INJ 100 ML IV SCH ×3 (04:18→20:21)
[2018-02-22 05:17] LABS: AUTOMATED NEUTROPHIL # 9.7 TH/MM3 (1.8-7.7); BASOPHIL # 0.1 TH/MM3 (0-0.2); BASOPHIL % 0.8 % (0.0-2.0); EOSINOPHIL # 0.4 TH/MM3 (0-0.4); EOSINOPHIL % 3.6 % (0.0-4.0); HEMATOCRIT 25.5 % (35.0-46.0); HEMOGLOBIN 8.7 GM/DL (11.6-15.3); LYMPH % 10.2 % (9.0-44.0); LYMPHOCYTE # 1.2 TH/MM3 (1.0-4.8); MEAN CELL VOLUME 99.3 FL (80.0-100.0); MEAN CORPUSCULAR HEMOGLOBIN 33.8 PG (27.0-34.0); MEAN PLATELET VOLUME 9.2 FL (7.0-11.0); MONO % 5.8 % (0.0-8.0); MONOCYTE # 0.7 TH/MM3 (0-0.9); NEUT % 79.6 % (16.0-70.0); PLATELET COUNT 299 TH/MM3 (150-450); RED BLOOD COUNT 2.57 MIL/MM3 (4.00-5.30); RED CELL DISTRIBUTION WIDTH 16.3 % (11.6-17.2); WHITE BLOOD COUNT 12.2 TH/MM3 (4.0-11.0)
[2018-02-22 05:44] LABS: ALBUMIN 1.4 GM/DL (3.4-5.0); ALT (GPT) 17 U/L (10-53); AST (GOT) 26 U/L (15-37); BICARBONATE 30.5 MEQ/L (21.0-32.0); BLOOD UREA NITROGEN 21 MG/DL (7-18); CALCIUM 8.4 MG/DL (8.5-10.1); CHLORIDE 111 MEQ/L (98-107); CREATININE 0.44 MG/DL (0.50-1.00); GLOMERULAR FILTRATION RATE 142 ML/MIN (>89); GLUCOSE,RANDOM 162 MG/DL (74-106); MAGNESIUM 2.1 MG/DL (1.5-2.5); PHOSPHORUS 2.5 MG/DL (2.5-4.9); SODIUM (NA) 148 MEQ/L (136-145)
[2018-02-22 05:47] LABS: ALKALINE PHOSPHATASE 154 U/L (45-117); TOTAL BILIRUBIN ADULT 0.2 MG/DL (0.2-1.0); TOTAL PROTEIN 5.8 GM/DL (6.4-8.2)
[2018-02-22] MEDS: PHENobarbital SOD 130 MG/ML VIAL IV SCH ×3 (05:57→17:36)
[2018-02-22] MEDS: LEVOTHYROXINE SODIUM 88 MCG TAB PO SCH (05:57)
[2018-02-22] MEDS: ARTIFICIAL TEARS OPTH SOLN 15 ML BTL EACH EYE SCH ×3 (05:57→20:22)
[2018-02-22] MEDS: hydrALAZINE HCL 20 MG/ML VIAL IV PUSH PRN (05:58)
[2018-02-22] MEDS: INSULIN NovoLIN REGULAR SUPPLEMENTAL SCALE SQ SCH ×4 (05:58→17:36)
[2018-02-22] MEDS: ENOXAPARIN SODIUM 40 MG/0.4 ML SYRINGE SQ SCH (05:58)
[2018-02-22] MEDS: CHLORHEXIDINE 0.12% (ORAL KIT) 15 ML CUP MT SCH ×2 (08:07→19:40)
[2018-02-22 08:11] LABS: BANDS 16 % (0-6); LYMPHOCYTES 9 % (9-44); METAMYELOCYTES 4 % (0-1); MONOCYTES 5 % (0-8); NEUTROPHIL # MANUAL DIFF 10.2 TH/MM3 (1.8-7.7); POLYS (SEG NEUTROPHILS) 64 % (16-70)
[2018-02-22] MEDS: LANSOPRAZOLE SOLUTAB 30 MG TAB NG SCH (08:15)
[2018-02-22] MEDS: SODIUM CHLORIDE 0.9% FLUSH 10 ML FLUSH IV FLUSH SCH (08:15)
[2018-02-22] MEDS: LISINOPRIL 5 MG TAB PO SCH ×2 (08:15→19:57)
[2018-02-22] MEDS: DOCUSATE SODIUM 50 MG/SENNA 8.6 MG TAB PO SCH ×2 (08:15→19:56)
[2018-02-22] MEDS: POLYETHYLENE GLYCOL 17 GM PKG PO SCH (08:16)
[2018-02-22] MEDS: LACTULOSE SYRUP 20 GM/30 ML CUP PO SCH (08:16)
[2018-02-22] MEDS: BACITRACIN TOP OINT 15 GM TUBE TOPICAL SCH ×2 (08:19→20:22)
--- NOTE | 2018-02-22 10:34 | HHI.CCPN ---
Subjective Remarks/Hospital Course This is a 67-year-old female with a history of poorly controlled seizures who presents with acute altered mental status. She was last seen normal at 3 AM this morning. Initially she was considered to be a stroke alert, however CT noncontrasted brain was negative and her nonfocal appearance was much more suggestive of seizures and stroke, along with the fact that her last seen normal time was significantly delayed. Stat EEG was ordered and she was found to be in status epilepticus. She was emergently intubated due to her poor mental status. I was called immediately down to the bedside for the EEG demonstrating status. At the bedside, I pushed 10 mg of Versed IV 1 and started her on a Versed drip at 10 mg an hour. No information is available from the patient due to her mental status. ROS is unobtainable. The majority of the information I have is obtained from medical record, and in specifically the H&P documented by Dr. Guerra back in October 2017, which is very helpful. In reading through her chart, it appears that when she comes off her Topamax, she goes into status. It appears that she has recently come off Topamax again due to side effects. She is anaphylactically allergic to Keppra and phenytoin, so these are not available to us to use. Versed drip was used successfully in her last admission October 2017, so that is what we have chosen. I have spoken with Dr. Headley who is not only an on-call neurologist but her personal neurologist who sees her frequently, and he agrees with this plan. He also thinks that Vimpat is a good option for seizure control, which I agree with. We will plan to load her with that. 02/11/18: Remains encephalopathy on the vent. No spontaneous movement noted when Versed is held. Will get a repeat EEG today. Wean sedation only if seizure controlled 02/12: Calm now, no convulsive activity. EEG result pending. Midazolam at 10. 02/13: On continuous EEG monitoring, no seizures noted. Versed had been weaned down to 5 mg/h, propofol at 20 mcg/kg/min. Patient does not open eyes or moves spontaneously 02/14: On attempted sedation wean yesterday night patient developed 2 episodes of seizures. Currently no clinical seizures. I discussed with Dr. Headley, will start phenobarbital 90 mg IV every 8 hours. Repeat EEG today. Currently back on 50 mcg/kg/min of propofol, Versed 7 mg per hour 02/15: Remains heavily sedated, started on phenobarbital IV yesterday. Level only 2.8. Will increase dose to 120 mg every 8 hours repeat level in a.m. EEG today pending. No sedation weaning without clearance from Dr. Headley. EEG yesterday showed some left-sided phase reversal. Leukocytosis with bandemia noted, will re culture 02/16: Pt had persistent epileptiform activity on eeg 02/[address] Headley. No sedation vacation until repeat EEG shows resolution. I have updated about this at the bedside. Repeat cultures pending at this time. Check renal ultrasound as the patient had recent hydronephrosis, ureteral stent. Patient remains critically ill in severely encephalopathic due to uncontrolled seizures 02/17: remains deeply sedated for status epilepticus. phenobarb level 55.[address] Headley managing anti-epileptics: very difficult to control seizures as well as difficult medication titration given multiple anaphylactic allergies to anticonvulsants. 02/18: T-max 100. Currently 99.4. Tolerating tube feeding. No bowel movement. 4 days. Remains sedated on midazolam and propofol drips 02/19: T-max 101.6. Currently 99.6. Tolerating tube feeds. 2 problems overnight. Remains on midazolam and propofol drips and phenobarbital, valproic acid and lacosamide 02/20: Afebrile. Propofol increased to 30 mg/kg/min overnight. Suppressing seizures currently. Increasing antiepileptics per neurology. Tolerating tube feeding. Positive BM. 02/21: Afebrile. Off propofol drip. Midazolam drip at 1 mg an hour. No signs of seizure activity on the last 2 EEGs. Tolerating tube feeding. Positive BM. Subjective 02/22: Off all sedation. EEG reveals moderate to severe encephalopathy. No epileptiform activity. Blinks eyes. Withdraws to pain in all 4 extremities. Objective Vital Signs Date Time Temp Pulse Resp B/P (MAP) Pulse Ox O2 Delivery O2 Flow Rate FiO2 02/22/18 07:52 97 40 02/22/18 06:00 93 02/22/18 04:00 99.0 16 162/72 (102) Intake and Output 02/22/18 02/22/18 02/23/18 08:00 16:00 00:00 Intake Total 1115 ml Output Total 1550 ml Balance -435 ml Result Diagram: 02/22/18 0420 02/22/18 0420 Other Results Microbiology Date/Time Source Procedure Growth Status 02/19/18 15:13 Blood Line Aerobic Blood Culture - Preliminary NO GROWTH IN 2 DAYS Resulted 02/19/18 15:13 Blood Line Anaerobic Blood Culture - Preliminary NO GROWTH IN 2 DAYS Resulted 02/19/18 21:30 Sputum Endotracheal Gram Stain - Final Complete 02/19/18 21:30 Sputum Endotracheal Sputum Culture - Final HEAVY GROWTH NORMAL RESPIRATORY EZEKIEL Complete 02/18/18 14:00 Urine Catheterized Urine Urine Culture - Final Kathy Glabrata Complete Imaging Last Impressions Chest X-Ray 02/21/18 0600 Signed Impressions: Service Date/Time: Wednesday, February 21, 2018 03:25 - CONCLUSION: Bibasilar densities and probable pleural effusions. Kashif Forrest MD Renal Ultrasound 02/16/18 0000 Signed Impressions: Service Date/Time: Friday, February 16, 2018 10:17 - CONCLUSION: 1. Unremarkable renal ultrasound examination without evidence for obstructive uropathy. Adin Sanchez MD Head CT 02/10/18 1115 Signed Impressions: Service Date/Time: Saturday, February 10, 2018 12:19 - CONCLUSION: Stable negative noncontrast CT. Mustapha Grossman MD Brain MRI 02/10/18 0000 Signed Impressions: Service Date/Time: Saturday, February 10, 2018 16:30 - CONCLUSION: 1. Stable appearance with no acute hemorrhage, mass or infarction. 2. Moderate atrophic change and stable mild ventricular prominence. Mustapha Grossman MD Objective Remarks GENERAL: 67-year-old female currently orotracheally intubated HEENT: Normocephalic. Atraumatic. Pupils 2mm, equal, round, reactive, conjugate. Mucous membranes are moist and pink.. NECK: Trachea is midline. Orally intubated. CHEST: Essentially clear to auscultation bilaterally without wheezes rales rhonchi CARDIOVASCULAR: RRR. S1, S2 no strip without murmur ABDOMEN: Soft, nontender, nondistended. No guarding. MUSCULOSKELETAL: Pulses 2+. No peripheral edema. NEUROLOGICAL: . No withdrawal while on midazolam and propofol. No spontaneous eye opening or movements. (Unable to wean sedation) positive gag. Positive cough. Positive corneal reflex. SKIN: Bullous/clear areas bilateral upper extremities right greater than left. Urinary Catheter: Yes Assessment to: Continue Ardon insert reason: Prolonged Immobilization Date of Insertion: Feb 17, 2018 Line: PICC Side: Left Location: Antecubital A/P Assessment and Plan Neuro/Psych: Status epilepticus Elevated IOP Acute encephalopathy Off midazolam and propofol drips was 12 hours Continue valproate 500 mg IV every 4 hours. Level currently 53. Continue phenobarbital 130 mg IV every 6 hours. Level currently 36 Continue lacosamide 100 mg IV every 8 hours. MRI brain 02/10 revealed mild ventricular enlargement. Atrophy. EEG 02/21 revealed moderate encephalopathy. No epileptic activity EEG 02/20 revealed moderate to severe encephalopathy. No epileptiform activity EEG brain 02/18 revealed suppressed platelets. EEG brain 02/16 revealed left frontal central spiking. -EEG 02/15/18 showed persistent seizure activity 02/14 probable phase reversal noted on left side. 02/15 persistent seizures -EEG repeat 02/12 no active seizures. -No sedation vacation until cleared by Dr. Headley -Continue ICU care, frequent neuro checks At home on valproic acid 500 mg 3 times daily with 250 mg at night Acetaminophen 650 mg every 6 hours as needed fever Continue bimatoprost 0.01% 1 drop each eye at night with appropriate hospital substitution latanoprost 0.005% 1 drop each eye at night Resp: Acute respiratory failure/hypoxic and hypercapnic ACV 15/500/5/40 PSV trial 15/5 and 40% Ventilator bundle Albuterol/ipratropium aerosols every 6 hours with albuterol aerosols every 2 hours as needed dyspnea Continue montelukast 10 mg by tube daily Spontaneous breathing trials when okay with neurology Follow chest x-ray in a.m. 02/21 revealed bilateral pleural effusion/infiltrates CV: Hypertension Dyslipidemia Off phenylephrine drip at 10 mcg/min to maintain mean arterial pressure greater than 65 When appropriate lisinopril 20 mg p.o. daily/home medication for hypertension can be decreased to 5 mg daily.. Today will increase to 5 mg twice daily As needed hydralazine/labetalol and Nitropaste to keep systolic blood pressure less than 170 Continue aspirin 81 mg p.o. daily Continue ezetimibe 10 mg p.o. daily for dyslipidemia GI Hypoalbuminemia OG tube and tube feeds with vital high-protein goal 65 cc/h per nutrition's recommendations Lansoprazole for GI prophylaxis Docusate sodium/senna 1 tablet twice daily for bowel regimen Continue free water 100 mL every 6 hours : Overactive bladder Recent ureteral stent for hydronephrosis -daily BMP. Sodium slowly improving -ICU electrolyte protocol. Keep Mag>2 Renal ultrasound revealed no hydronephrosis 02/16 Currently holding oxybutynin 5 mg daily ID: -UTI with E. coli 02/10 Funguria C. difficile Will discontinue cefepime 2 g IV every 8 hours 02/18 with status epilepticus. Currently piperacillin/tazobactam day #4 per infectious disease Metronidazole 500 mg by tube 3 times daily for C. difficile Pertinent cultures No growth to date blood cultures 2 and sputum 02/19 02/18 -urine culture -C glabrata 02/15 -UA -no growth 02/15 blood cultures 2 -no growth 02/10 -UA -E. coli HEME: Leukocytosis Macrocytic anemia -Monitor CBC. Follow trend Endo Mild hyperglycemia Hypothyroidism Sliding scale insulin with NovoLog with Accu-Cheks to maintain euglycemia/low regimen every 6 hours Continue levothyroxine 75 mcg by tube daily recheck TSH was 10.4. Will increase levothyroxine to 88 mcg daily Access -Left antecubital PICC line placed 02/17/dual-lumen Prophylaxis -GI -lansoprazole -DVT -SCD/enoxaparin Level 3 follow-up. Discussed with at bedside. Care plan discussed and all questions answered. Tonny Lomeli MD Feb 22, 2018 10:34
--- NOTE | 2018-02-22 12:18 | HHI.IDPN ---
Note Infectious Disease Note Patient is on the ventilator. Currently on CPAP. Afebrile No new seizure activity noted. Patient has lots of loose stools via rectal bag. Stool C. difficile toxin PCR is positive. Urine culture as Kathy glabrata. Presented to the emergency department on 02/10/2018 with acute altered mental status. She was found to be with status epilepticus. In the emergency department, the temperature phyllis to 103 degrees on the evening of admission. She was intubated and EEG has been repeatedly performed and shows that she is continuing to have seizure activity. The patient continues to have fever with temperature spike of 102 early today. She received IV antibiotic treatment for urinary tract infection due to Escherichia coli, which was cultured on admission urine culture. PAST MEDICAL HISTORY: Hypertension, hyperlipidemia, seizure disorder, urinary incontinence, history of back surgery, history of shoulder surgery, hysterectomy, history of knee surgery. ALLERGIES: FLUCONAZOLE, PHENYTOIN, RIFAMPIN, LEVETIRACETAM, HYDROMORPHONE. MEDICATIONS: Current Medications Medications (Trade) Dose Ordered Sig/Tiera Route PRN Reason Start Time Stop Time Status Last Admin Dose Admin Sodium Chloride (NS Flush) 2 ml UNSCH PRN IV FLUSH FLUSH AFTER USING IV ACCESS 02/10/18 11:15 Potassium Chloride 100 ml @ 25 mls/hr Q2H PRN IV For Potassium 2.8 - 3.2 mEq/L 02/10/18 13:15 Potassium Chloride 100 ml @ 50 mls/hr Q2H PRN IV For Potassium 2.8 - 3.2 mEq/L 02/10/18 13:15 Potassium Bicarb/ Potassium Chloride (K-Lyte Cl Eff) 50 meq UNSCH PRN PO For Potassium 3.3 - 3.5 mEq/L 02/10/18 13:15 02/12/18 09:38 Potassium Chloride 100 ml @ 25 mls/hr UNSCH PRN IV For Potassium 3.3 - 3.5 mEq/L 02/10/18 13:15 Potassium Chloride 100 ml @ 50 mls/hr Q2H PRN IV For Potassium 3.3 - 3.5 mEq/L 02/10/18 13:15 Magnesium Sulfate 4 gm/Sodium Chloride 100 ml @ 50 mls/hr UNSCH PRN IV For Magnesium 0.9 - 1.1 mg/dL 02/10/18 13:15 Magnesium Oxide (Mag-Ox) 800 mg UNSCH PRN PO For Magnesium 1.2 - 1.6 mg/dL 02/10/18 13:15 Magnesium Sulfate 2 gm/Sodium Chloride 100 ml @ 50 mls/hr UNSCH PRN IV For Magnesium 1.2 - 1.6 mg/dL 02/10/18 13:15 Potassium Phosphate (K-Phos) 2,000 mg Q4H PRN PO For Phosphorus < 2.5 mg/dL 02/10/18 13:15 Sodium Phosphate 30 mmol/Sodium Chloride 250 ml @ 42 mls/hr UNSCH PRN IV For Phosphorus < 2.5 mg/dL 02/10/18 13:15 Potassium Phosphate (K-Phos) 2,000 mg UNSCH PRN PO/TUBE SEE LABEL COMMENTS 02/10/18 13:15 Potassium Phosphate 30 mmol/ Sodium Chloride 260 ml @ 42 mls/hr UNSCH PRN IV SEE LABEL COMMENTS 02/10/18 13:15 Chlorhexidine Gluconate (Peridex 0.12% Liq) 15 ml BID@08,20 MT 02/10/18 20:00 02/22/18 08:07 Dextrose (D50w (Vial) Inj) 25 ml UNSCH PRN IV PUSH HYPOGLYCEMIA-SEE COMMENTS 02/10/18 13:15 Insulin Human Regular (NovoLIN R SUPPLEMENTAL SCALE) 1 Q6HR SQ 02/10/18 18:00 02/21/18 06:28 Ondansetron HCl (Zofran Inj) 4 mg Q6H PRN IV PUSH NAUSEA OR VOMITING 02/10/18 13:15 Miscellaneous Information 1 Q361D XX 02/10/18 13:15 02/10/18 13:15 Chlorhexidine Gluconate (Chlorhexidine 2% Cloth) Taper DAILY@04 TOP 02/11/18 04:00 02/07/19 03:59 02/19/18 04:20 Chlorhexidine Gluconate (Chlorhexidine 2% Cloth) 3 pack UNSCH PRN TOP HYGIENIC CARE 02/10/18 13:15 Senna/Docusate Sodium (Anahi-Colace) 1 tab BID PO 02/10/18 21:00 02/22/18 08:15 Magnesium Hydroxide (Milk Of Magnesia Liq) 30 ml Q12H PRN PO Mild constipation 02/10/18 13:15 Sennosides (Senokot) 17.2 mg Q12H PRN PO Moderate constipation 02/10/18 13:15 Bisacodyl (Dulcolax Supp) 10 mg DAILY PRN RECTAL SEVERE CONSITIPATION 02/10/18 13:15 Lactulose (Lactulose Liq) 30 ml DAILY PRN PO SEVERE CONSITIPATION 02/10/18 13:15 Midazolam HCl 100 ml @ 2 mls/hr TITRATE PRN IV SEDATION 02/10/18 14:15 02/20/18 08:30 Lorazepam (Ativan Inj) 2 mg Q1H PRN IV PUSH seizures 02/11/18 15:00 02/14/18 01:48 Propofol 100 ml @ 2.535 mls/ hr TITRATE PRN IV SEDATION 02/11/18 15:00 02/21/18 01:55 Lacosamide 100 mg/ Sodium Chloride 110 ml @ 110 mls/hr Q8H IV 02/15/18 12:00 02/22/18 04:18 Sodium Chloride (NS Flush) See Protocol DAILY IV FLUSH 02/18/18 09:00 02/22/18 08:15 Sodium Chloride (NS Flush) See Protocol UNSCH PRN IV FLUSH SEE PROTOCOL TABLE 02/17/18 17:45 Heparin Sodium (Porcine) (Heparin Central Flush) See Protocol DAILY IV FLUSH 02/18/18 09:00 02/22/18 08:15 Heparin Sodium (Porcine) (Heparin Central Flush) See Protocol UNSCH PRN IV FLUSH SEE PROTOCOL TABLE 02/17/18 17:45 Sodium Chloride (NS Flush) UNSCH PRN IV FLUSH SEE PROTOCOL TABLE 02/17/18 17:45 02/21/18 09:51 Acetaminophen (Tylenol 650 Mg/ 20 ml Liq) 650 mg Q6H PRN PO fever 02/18/18 09:30 02/18/18 21:32 Artificial Tears (Tears Naturale Opth Soln) 1 drop Q8HR EACH EYE 02/18/18 14:00 02/22/18 05:57 Albuterol Sulfate (Albuterol Neb) 2.5 mg Q2HR NEB PRN NEB dyspnea 02/18/18 09:30 02/19/18 00:33 Labetalol HCl (Trandate Inj) 10 mg Q1H PRN IV PUSH SBP>170, DBP>90 02/18/18 09:30 Lansoprazole (Prevacid Odt) 30 mg DAILY NG 02/19/18 09:00 02/22/18 08:15 Montelukast Sodium (Singulair) 10 mg HS PO 02/18/18 21:00 02/21/18 20:16 Latanoprost (Xalatan 0.005% Opth Soln) 1 drop HS EACH EYE 02/18/18 21:00 02/21/18 20:18 Enoxaparin Sodium (Lovenox Inj) 40 mg Q24H SQ 02/19/18 06:00 02/22/18 05:58 Nitroglycerin (Nitroglycerin 2% Oint) 2 inch Q6HR PRN TOPICAL SBP>160, DBP>90 02/18/18 13:15 Hydralazine HCl (Apresoline Inj) 10 mg Q1HR PRN IV PUSH SBP>160, DBP>90 02/18/18 13:15 02/22/18 05:58 Terbutaline Sulfate (Brethine Inj) 1 mg UNSCH PRN SQ For Extravasation 02/18/18 18:45 Phenylephrine HCl 160 mg/Sodium Chloride 500 ml @ 1.87 mls/hr TITRATE PRN IV Blood pressure management 02/18/18 20:00 02/18/18 22:09 Levothyroxine Sodium (Synthroid) 88 mcg DAILY@0600 PO 02/20/18 06:00 02/22/18 05:57 Valproate Sodium 500 mg/Sodium Chloride 105 ml @ 105 mls/hr Q4HR IV 02/19/18 20:00 02/22/18 08:04 Phenobarbital Sodium (Luminal Inj) 130 mg Q6HR IV 02/20/18 12:00 02/22/18 05:57 Piperacillin Sod/ Tazobactam Sod 50 ml @ 100 mls/hr Q6H IV 02/20/18 20:15 02/22/18 08:14 Albuterol/ Ipratropium (Duoneb Neb) 1 ampule Q6HR NEB INH 02/21/18 16:00 02/22/18 07:52 Bacitracin (Baciguent Oint) 1 applic Q12HR TOPICAL 02/21/18 21:00 02/22/18 08:19 Metronidazole (Flagyl) 500 mg Q8HR PO 02/22/18 14:00 Lisinopril (Prinivil) 5 mg BID PO 02/22/18 21:00 Vital Signs Date Time Temp Pulse Resp B/P (MAP) Pulse Ox O2 Delivery O2 Flow Rate FiO2 02/22/18 11:10 100 40 02/22/18 08:00 40 02/22/18 07:52 97 40 02/22/18 06:00 93 02/22/18 04:05 99 40 02/22/18 04:00 40 02/22/18 04:00 93 02/22/18 04:00 99.0 93 16 162/72 (102) 98 02/22/18 02:00 93 02/22/18 01:40 98 40 02/22/18 01:20 100 100 02/22/18 00:00 85 02/22/18 00:00 98.8 85 15 132/67 (88) 99 02/22/18 00:00 40 02/21/18 22:25 100 40 02/21/18 22:00 97 02/21/18 20:00 99.8 97 12 132/67 (88) 97 02/21/18 20:00 40 02/21/18 20:00 97 02/21/18 19:20 99 40 02/21/18 18:00 98 02/21/18 16:00 100 02/21/18 16:00 40 02/21/18 16:00 100.0 100 20 131/58 (82) 95 02/21/18 15:34 95 40 02/21/18 14:00 101 Laboratory Tests Test 02/21/18 05:00 02/22/18 04:20 White Blood Count 13.1 TH/MM3 12.2 TH/MM3 Red Blood Count 2.32 MIL/MM3 2.57 MIL/MM3 Hemoglobin 7.7 GM/DL 8.7 GM/DL Hematocrit 23.2 % 25.5 % Mean Corpuscular Volume 99.8 FL 99.3 FL Mean Corpuscular Hemoglobin 33.0 PG 33.8 PG Mean Corpuscular Hemoglobin Concent 33.1 % 34.0 % Red Cell Distribution Width 16.0 % 16.3 % Platelet Count 253 TH/MM3 299 TH/MM3 Mean Platelet Volume 9.6 FL 9.2 FL Neutrophils (%) (Auto) 83.2 % 79.6 % Lymphocytes (%) (Auto) 7.6 % 10.2 % Monocytes (%) (Auto) 5.6 % 5.8 % Eosinophils (%) (Auto) 2.8 % 3.6 % Basophils (%) (Auto) 0.8 % 0.8 % Neutrophils # (Auto) 10.9 TH/MM3 9.7 TH/MM3 Lymphocytes # (Auto) 1.0 TH/MM3 1.2 TH/MM3 Monocytes # (Auto) 0.7 TH/MM3 0.7 TH/MM3 Eosinophils # (Auto) 0.4 TH/MM3 0.4 TH/MM3 Basophils # (Auto) 0.1 TH/MM3 0.1 TH/MM3 CBC Comment AUTO DIFF AUTO DIFF Differential Total Cells Counted 100 100 Neutrophils % (Manual) 64 % 64 % Band Neutrophils % 15 % 16 % Lymphocytes % 5 % 9 % Monocytes % 10 % 5 % Eosinophils % 2 % 2 % Neutrophils # (Manual) 10.9 TH/MM3 10.2 TH/MM3 Metamyelocytes 4 % 4 % Differential Comment FINAL DIFF MANUAL FINAL DIFF MANUAL Platelet Estimate NORMAL NORMAL Platelet Morphology Comment NORMAL NORMAL Red Cell Morphology Comment NORMAL Laboratory Tests Test 02/20/18 20:22 02/21/18 05:00 02/22/18 04:20 Potassium Level 4.3 MEQ/L 4.0 MEQ/L 3.9 MEQ/L Phosphorus Level 2.7 MG/DL 2.6 MG/DL 2.5 MG/DL Blood Urea Nitrogen 22 MG/DL 21 MG/DL Creatinine 0.44 MG/DL 0.44 MG/DL Random Glucose 163 MG/DL 162 MG/DL Total Protein 5.6 GM/DL 5.8 GM/DL Albumin 1.3 GM/DL 1.4 GM/DL Calcium Level 8.4 MG/DL 8.4 MG/DL Magnesium Level 2.3 MG/DL 2.1 MG/DL Alkaline Phosphatase 84 U/L 154 U/L Aspartate Amino Transf (AST/SGOT) 35 U/L 26 U/L Alanine Aminotransferase (ALT/SGPT) 17 U/L 17 U/L Total Bilirubin 0.1 MG/DL 0.2 MG/DL Sodium Level 147 MEQ/L 148 MEQ/L Chloride Level 109 MEQ/L 111 MEQ/L Carbon Dioxide Level 31.5 MEQ/L 30.5 MEQ/L Anion Gap 7 MEQ/L 7 MEQ/L Estimat Glomerular Filtration Rate 142 ML/MIN 142 ML/MIN Microbiology Date/Time Source Procedure Growth Status 02/19/18 15:13 Blood Line Aerobic Blood Culture - Preliminary NO GROWTH IN 3 DAYS Resulted 02/19/18 15:13 Blood Line Anaerobic Blood Culture - Preliminary NO GROWTH IN 3 DAYS Resulted 02/19/18 21:30 Sputum Endotracheal Gram Stain - Final Complete 02/19/18 21:30 Sputum Endotracheal Sputum Culture - Final HEAVY GROWTH NORMAL RESPIRATORY BEKA Complete Imaging: Chest X-Ray 02/21/18 0600 Signed Impressions: Service Date/Time: Wednesday, February 21, 2018 03:25 - CONCLUSION: Bibasilar densities and probable pleural effusions. Kashif Forrest MD Chest X-Ray 02/20/18 0600 Signed Impressions: Service Date/Time: Tuesday, February 20, 2018 02:58 - CONCLUSION: Stable exam with bibasilar densities and probable pleural effusions. Kashif Forrest MD Renal Ultrasound 02/16/18 0000 Signed Impressions: Service Date/Time: Friday, February 16, 2018 10:17 - CONCLUSION: 1. Unremarkable renal ultrasound examination without evidence for obstructive uropathy. Adin Sanchez MD Head CT 02/10/18 1115 Signed Impressions: Service Date/Time: Saturday, February 10, 2018 12:19 - CONCLUSION: Stable negative noncontrast CT. Mustapha Grossman MD Brain MRI 02/10/18 0000 Signed Impressions: Service Date/Time: Saturday, February 10, 2018 16:30 - CONCLUSION: 1. Stable appearance with no acute hemorrhage, mass or infarction. 2. Moderate atrophic change and stable mild ventricular prominence. Mustapha Grossman MD PHYSICAL EXAMINATION: GENERAL: Patient is sedated. HEENT: Unable to fully assess. The patient cannot cooperate. No icterus. Oropharynx intubated. NECK: Supple, no adenopathy. LUNGS: Diminished breath sounds. No rhonchi HEART: Regular S1 and S2, without audible murmurs, rubs or gallops. ABDOMEN: Obese, soft, diminished bowel sounds. No tenderness appreciated. EXTREMITIES: Diffuse edema with clear fluid filled blisters on the arms. SKIN: No diffuse rash. NEUROLOGIC: Unable to assess. PSYCHIATRIC: Unable to assess. IMPRESSION: 1. Fever in patient with status epilepticus. Temperature improved. 2. Urinary tract infection due to Kathy. We will hold off on additional treatment for now. The urine culture can be repeated if the white blood cell count increases. 3. C. difficile colitis. It may be contributing to the elevated white blood cell count. 4. Acute respiratory failure. Probable pneumonia. Sputum culture has normal beka. Chest x-ray without acute infiltrate. 5. Probable sepsis. Blood cultures no growth. RECOMMENDATIONS: 1. Continue Metronidazole. 2. Stop Zosyn because the chest x-ray is unremarkable and sputum culture has normal beka. 3. Monitor white blood cell count. 4. Monitor clinical status. Discussed with RN and patient's . Irving Rolle MD Feb 22, 2018 12:18
[2018-02-22] MEDS: metroNIDAZOLE 500 MG TAB PO SCH ×2 (13:56→22:28)
[2018-02-22] MEDS: LABETALOL HCL 100 MG/20 ML VIAL IV PUSH PRN ×2 (14:05→17:36)
[2018-02-22] MEDS: LATANOPROST 0.005% OPHT SOLN 2.5 ML BTL EACH EYE SCH (19:40)
[2018-02-22] MEDS: MONTELUKAST SODIUM 10 MG TAB PO SCH (19:56)
[2018-02-22] MEDS: ACETAMINOPHEN 650 MG/20.3 ML UDC PO PRN (19:57)
--- NOTE | 2018-02-22 20:01 | HHI.PR ---
Review/Management Diagnosis status epilepticus--resolved now off of versed and propofol Plan reduce phenobarbita dose EEG in am Diagnosis/Plan: Subjective Subjective Comments No acute events reported eeg --no sz Active Medications Current Medications Medications (Trade) Dose Ordered Sig/Tiera Route Start Time Stop Time Status Last Admin (NS Flush) 2 ml UNSCH PRN IV FLUSH 02/10/18 11:15 Potassium Chloride 100 ml @ 25 mls/hr Q2H PRN IV 02/10/18 13:15 Potassium Chloride 100 ml @ 50 mls/hr Q2H PRN IV 02/10/18 13:15 (K-Lyte Cl Eff) 50 meq UNSCH PRN PO 02/10/18 13:15 02/12/18 09:38 Potassium Chloride 100 ml @ 25 mls/hr UNSCH PRN IV 02/10/18 13:15 Potassium Chloride 100 ml @ 50 mls/hr Q2H PRN IV 02/10/18 13:15 Magnesium Sulfate 4 gm/Sodium Chloride 100 ml @ 50 mls/hr UNSCH PRN IV 02/10/18 13:15 (Mag-Ox) 800 mg UNSCH PRN PO 02/10/18 13:15 Magnesium Sulfate 2 gm/Sodium Chloride 100 ml @ 50 mls/hr UNSCH PRN IV 02/10/18 13:15 (K-Phos) 2,000 mg Q4H PRN PO 02/10/18 13:15 Sodium Phosphate 30 mmol/Sodium Chloride 250 ml @ 42 mls/hr UNSCH PRN IV 02/10/18 13:15 (K-Phos) 2,000 mg UNSCH PRN PO/TUBE 02/10/18 13:15 Potassium Phosphate 30 mmol/ Sodium Chloride 260 ml @ 42 mls/hr UNSCH PRN IV 02/10/18 13:15 (Peridex 0.12% Liq) 15 ml BID@08,20 MT 02/10/18 20:00 02/22/18 19:40 (D50w (Vial) Inj) 25 ml UNSCH PRN IV PUSH 02/10/18 13:15 (NovoLIN R SUPPLEMENTAL SCALE) 1 Q6HR SQ 02/10/18 18:00 02/21/18 06:28 (Zofran Inj) 4 mg Q6H PRN IV PUSH 02/10/18 13:15 Miscellaneous Information 1 Q361D XX 02/10/18 13:15 02/10/18 13:15 (Chlorhexidine 2% Cloth) Taper DAILY@04 TOP 02/11/18 04:00 02/07/19 03:59 02/19/18 04:20 (Chlorhexidine 2% Cloth) 3 pack UNSCH PRN TOP 02/10/18 13:15 (Anahi-Colace) 1 tab BID PO 02/10/18 21:00 02/22/18 19:56 (Milk Of Magnesia Liq) 30 ml Q12H PRN PO 02/10/18 13:15 (Senokot) 17.2 mg Q12H PRN PO 02/10/18 13:15 (Dulcolax Supp) 10 mg DAILY PRN RECTAL 02/10/18 13:15 (Lactulose Liq) 30 ml DAILY PRN PO 02/10/18 13:15 Midazolam HCl 100 ml @ 2 mls/hr TITRATE PRN IV 02/10/18 14:15 02/20/18 08:30 (Ativan Inj) 2 mg Q1H PRN IV PUSH 02/11/18 15:00 02/14/18 01:48 Propofol 100 ml @ 2.535 mls/ hr TITRATE PRN IV 02/11/18 15:00 02/21/18 01:55 Lacosamide 100 mg/ Sodium Chloride 110 ml @ 110 mls/hr Q8H IV 02/15/18 12:00 02/22/18 13:48 (NS Flush) See Protocol DAILY IV FLUSH 02/18/18 09:00 02/22/18 08:15 (NS Flush) See Protocol UNSCH PRN IV FLUSH 02/17/18 17:45 (Heparin Central Flush) See Protocol DAILY IV FLUSH 02/18/18 09:00 02/22/18 08:15 (Heparin Central Flush) See Protocol UNSCH PRN IV FLUSH 02/17/18 17:45 (NS Flush) UNSCH PRN IV FLUSH 02/17/18 17:45 02/21/18 09:51 (Tylenol 650 Mg/ 20 ml Liq) 650 mg Q6H PRN PO 02/18/18 09:30 02/22/18 19:57 (Tears Naturale Opth Soln) 1 drop Q8HR EACH EYE 02/18/18 14:00 02/22/18 13:49 (Albuterol Neb) 2.5 mg Q2HR NEB PRN NEB 02/18/18 09:30 02/19/18 00:33 (Trandate Inj) 10 mg Q1H PRN IV PUSH 02/18/18 09:30 02/22/18 17:36 (Prevacid Odt) 30 mg DAILY NG 02/19/18 09:00 02/22/18 08:15 (Singulair) 10 mg HS PO 02/18/18 21:00 02/22/18 19:56 (Xalatan 0.005% Opth Soln) 1 drop HS EACH EYE 02/18/18 21:00 02/22/18 19:40 (Lovenox Inj) 40 mg Q24H SQ 02/19/18 06:00 02/22/18 05:58 (Nitroglycerin 2% Oint) 2 inch Q6HR PRN TOPICAL 02/18/18 13:15 (Apresoline Inj) 10 mg Q1HR PRN IV PUSH 02/18/18 13:15 02/22/18 05:58 (Brethine Inj) 1 mg UNSCH PRN SQ 02/18/18 18:45 Phenylephrine HCl 160 mg/Sodium Chloride 500 ml @ 1.87 mls/hr TITRATE PRN IV 02/18/18 20:00 02/18/18 22:09 (Synthroid) 88 mcg DAILY@0600 PO 02/20/18 06:00 02/22/18 05:57 Valproate Sodium 500 mg/Sodium Chloride 105 ml @ 105 mls/hr Q4HR IV 02/19/18 20:00 02/22/18 19:56 (Luminal Inj) 130 mg Q6HR IV 02/20/18 12:00 02/22/18 17:36 (Duoneb Neb) 1 ampule Q6HR NEB INH 02/21/18 16:00 02/22/18 15:21 (Baciguent Oint) 1 applic Q12HR TOPICAL 02/21/18 21:00 02/22/18 08:19 (Flagyl) 500 mg Q8HR PO 02/22/18 14:00 02/22/18 13:56 (Prinivil) 5 mg BID PO 02/22/18 21:00 02/22/18 19:57 Allergies Allergies Coded Allergies fluconazole (Unverified Allergy, Severe, 02/10/18) hydromorphone (Unverified Allergy, Severe, 02/10/18) levetiracetam (Unverified Allergy, Severe, Anaphylaxis, 02/10/18) rifampin (Unverified Allergy, Severe, 02/10/18) phenytoin (Unverified Allergy, Mild, Rash, 02/10/18) Exam I&O / VS 02/22/18 02/22/18 02/23/18 15:00 23:00 07:00 Intake Total 650 ml Output Total 1050 ml Balance -400 ml Intake Oral 0 ml Tube Feeding 450 ml Other 200 ml Output Urine Total 850 ml Stool Total 200 ml Vital Signs Date Time Temp Pulse Resp B/P (MAP) Pulse Ox O2 Delivery O2 Flow Rate FiO2 02/22/18 18:00 80 02/22/18 17:00 87 30 181/79 (113) 95 02/22/18 16:00 77 02/22/18 16:00 40 02/22/18 16:00 98.6 77 19 126/58 (80) 96 02/22/18 15:21 96 40 02/22/18 15:00 75 18 128/58 (81) 96 02/22/18 14:00 96 02/22/18 14:00 98.6 96 20 175/73 (107) 96 02/22/18 12:00 96 02/22/18 12:00 40 02/22/18 12:00 96 0 154/68 (96) 100 02/22/18 11:10 100 40 02/22/18 10:00 95 0 151/66 (94) 100 02/22/18 10:00 95 02/22/18 08:00 40 02/22/18 08:00 93 02/22/18 08:00 40 02/22/18 08:00 98.8 93 0 184/78 (113) 99 02/22/18 07:52 97 40 02/22/18 06:00 93 0 209/87 (127) 98 02/22/18 06:00 93 02/22/18 04:05 99 40 02/22/18 04:00 40 02/22/18 04:00 93 02/22/18 04:00 99.0 93 16 162/72 (102) 98 02/22/18 02:00 93 02/22/18 01:40 98 40 02/22/18 01:20 100 100 02/22/18 00:00 85 02/22/18 00:00 98.8 85 15 132/67 (88) 99 02/22/18 00:00 40 02/21/18 22:25 100 40 02/21/18 22:00 97 Exam Comments sedated, nonresponseve No tonic clonic activity PERRL, EOM intact to dolls maneuver No focal deficit Objective Micro and Labs Laboratory Tests Test 02/22/18 04:20 White Blood Count 12.2 Red Blood Count 2.57 Hemoglobin 8.7 Hematocrit 25.5 Mean Corpuscular Volume 99.3 Mean Corpuscular Hemoglobin 33.8 Mean Corpuscular Hemoglobin Concent 34.0 Red Cell Distribution Width 16.3 Platelet Count 299 Mean Platelet Volume 9.2 Neutrophils (%) (Auto) 79.6 Lymphocytes (%) (Auto) 10.2 Monocytes (%) (Auto) 5.8 Eosinophils (%) (Auto) 3.6 Basophils (%) (Auto) 0.8 Neutrophils # (Auto) 9.7 Lymphocytes # (Auto) 1.2 Monocytes # (Auto) 0.7 Eosinophils # (Auto) 0.4 Basophils # (Auto) 0.1 CBC Comment AUTO DIFF Differential Total Cells Counted 100 Neutrophils % (Manual) 64 Band Neutrophils % 16 Lymphocytes % 9 Monocytes % 5 Eosinophils % 2 Neutrophils # (Manual) 10.2 Metamyelocytes 4 Differential Comment FINAL DIFF MANUAL Platelet Estimate NORMAL Platelet Morphology Comment NORMAL Red Cell Morphology Comment NORMAL Blood Urea Nitrogen 21 Creatinine 0.44 Random Glucose 162 Total Protein 5.8 Albumin 1.4 Calcium Level 8.4 Phosphorus Level 2.5 Magnesium Level 2.1 Alkaline Phosphatase 154 Aspartate Amino Transf (AST/SGOT) 26 Alanine Aminotransferase (ALT/SGPT) 17 Total Bilirubin 0.2 Sodium Level 148 Potassium Level 3.9 Chloride Level 111 Carbon Dioxide Level 30.5 Anion Gap 7 Estimat Glomerular Filtration Rate 142 Valproic Acid (Depakene) Level 53 Phenobarbital Level 34.1 Date/Time Source Procedure Growth Status 02/19/18 15:13 Blood Line Aerobic Blood Culture - Preliminary NO GROWTH IN 3 DAYS Resulted 02/19/18 15:13 Blood Line Anaerobic Blood Culture - Preliminary NO GROWTH IN 3 DAYS Resulted 02/19/18 21:30 Sputum Endotracheal Gram Stain - Final Complete 02/19/18 21:30 Sputum Endotracheal Sputum Culture - Final HEAVY GROWTH NORMAL RESPIRATORY EZEKIEL Complete 02/18/18 14:00 Urine Catheterized Urine Urine Culture - Final Kathy Glabrata Complete Loy Headley MD PhD Feb 22, 2018 20:01
[2018-02-23] VITALS (31 sets, daily range): BP systolic 129–209; BP diastolic 61–94; PULSE 67–83; RESP 13–20; TEMP 98–99.6; O2SAT 94–100
[2018-02-23] MEDS: VALPROATE INJ 500 MG in SODIUM CHLORIDE 0.9% INJ 100 ML IV SCH ×6 (00:10→21:37)
[2018-02-23] MEDS: PHENobarbital SOD 130 MG/ML VIAL IV SCH ×2 (02:02→10:54)
[2018-02-23] MEDS: RESP: ALBUTEROL 2.5 MG/IPRATROPIUM 0.5 MG NEB (SCH) INH ×4 (03:14→21:12)
[2018-02-23] MEDS: CHLORHEXIDINE GLUCONATE 2 % 1 PACK (2 CLOTHS) TOP SCH (03:41)
[2018-02-23] MEDS: LABETALOL HCL 100 MG/20 ML VIAL IV PUSH PRN ×2 (04:02→15:11)
[2018-02-23 04:15] LABS: BASOPHIL # 0.1 TH/MM3 (0-0.2); BASOPHIL % 0.5 % (0.0-2.0); EOSINOPHIL # 0.3 TH/MM3 (0-0.4); EOSINOPHIL % 2.7 % (0.0-4.0); HEMATOCRIT 24.2 % (35.0-46.0); LYMPH % 16.4 % (9.0-44.0); MEAN CORPUSCULAR HEMOGLOBIN 32.9 PG (27.0-34.0); MEAN CORPUSCULAR HGB CONC 32.9 % (32.0-36.0); MEAN PLATELET VOLUME 8.8 FL (7.0-11.0); MONO % 6.9 % (0.0-8.0); MONOCYTE # 0.8 TH/MM3 (0-0.9); NEUT % 73.5 % (16.0-70.0); PLATELET COUNT 366 TH/MM3 (150-450); RED BLOOD COUNT 2.42 MIL/MM3 (4.00-5.30); RED CELL DISTRIBUTION WIDTH 15.9 % (11.6-17.2); WHITE BLOOD COUNT 12.2 TH/MM3 (4.0-11.0)
[2018-02-23 04:38] LABS: ALBUMIN 1.4 GM/DL (3.4-5.0); ALT (GPT) 11 U/L (10-53); AST (GOT) 23 U/L (15-37); BICARBONATE 30.2 MEQ/L (21.0-32.0); BLOOD UREA NITROGEN 25 MG/DL (7-18); CALCIUM 8.4 MG/DL (8.5-10.1); CHLORIDE 111 MEQ/L (98-107); CREATININE 0.37 MG/DL (0.50-1.00); GLOMERULAR FILTRATION RATE 174 ML/MIN (>89); GLUCOSE,RANDOM 133 MG/DL (74-106); MAGNESIUM 2.2 MG/DL (1.5-2.5); PHOSPHORUS 3.2 MG/DL (2.5-4.9); SODIUM (NA) 146 MEQ/L (136-145)
[2018-02-23 04:43] LABS: ALKALINE PHOSPHATASE 75 U/L (45-117); TOTAL BILIRUBIN ADULT 0.2 MG/DL (0.2-1.0); TOTAL PROTEIN 5.8 GM/DL (6.4-8.2)
[2018-02-23] MEDS: ARTIFICIAL TEARS OPTH SOLN 15 ML BTL EACH EYE SCH ×3 (05:12→21:37)
[2018-02-23] MEDS: LACOSAMIDE INJ 100 MG in SODIUM CHLORIDE 0.9% INJ 100 ML IV SCH ×3 (05:12→21:38)
[2018-02-23] MEDS: INSULIN NovoLIN REGULAR SUPPLEMENTAL SCALE SQ SCH ×4 (05:25→18:00)
[2018-02-23] MEDS: LEVOTHYROXINE SODIUM 88 MCG TAB PO SCH (05:25)
[2018-02-23] MEDS: metroNIDAZOLE 500 MG TAB PO SCH ×3 (05:25→21:37)
[2018-02-23] MEDS: ENOXAPARIN SODIUM 40 MG/0.4 ML SYRINGE SQ SCH (05:25)
[2018-02-23] MEDS: hydrALAZINE HCL 20 MG/ML VIAL IV PUSH PRN ×2 (06:05→21:36)
--- NOTE | 2018-02-23 06:24 | RADRPT ---
EXAM DATE/TIME: 02/23/2018 05:17 [place] COMPARISON: CHEST SINGLE AP, February 21, 2018, 3:25. INDICATIONS : Short of breath. MEDICAL HISTORY : Arthritis. Hypertension Seizures SURGICAL HISTORY : Hysterectomy. section. ENCOUNTER: Subsequent ACUITY: 1 week PAIN SCORE: Non-responsive. LOCATION: Bilateral chest FINDINGS: Endotracheal tube and nasogastric tube are again noted. Left arm PICC line is stable. Hazy bilateral pleural-parenchymal opacities persist unchanged. Visualized cardiac contours are grossly stable. CONCLUSION: No significant change Bautista Paul MD on February 23, 2018 at 6:20 Board Certified Radiologist. This report was verified electronically.
[2018-02-23 07:08] LABS: BANDS 27 % (0-6); BASOPHILS 1 % (0-2); CORRECTED NUCLEATED RBC 2 /100 WBC (0-0); LYMPHOCYTES 11 % (9-44); METAMYELOCYTES 1 % (0-1); MONOCYTES 7 % (0-8); MYELOCYTES 2 % (0-0); NEUTROPHIL # MANUAL DIFF 9.8 TH/MM3 (1.8-7.7); NUCLEATED RED BLOOD CELL 2 (0-0); POLYS (SEG NEUTROPHILS) 50 % (16-70)
[2018-02-23] MEDS: LISINOPRIL 5 MG TAB PO SCH ×2 (08:25→21:37)
[2018-02-23] MEDS: LANSOPRAZOLE SOLUTAB 30 MG TAB NG SCH (08:25)
[2018-02-23] MEDS: DOCUSATE SODIUM 50 MG/SENNA 8.6 MG TAB PO SCH ×2 (08:25→21:37)
[2018-02-23] MEDS: CHLORHEXIDINE 0.12% (ORAL KIT) 15 ML CUP MT SCH ×2 (08:26→21:38)
[2018-02-23] MEDS: BACITRACIN TOP OINT 15 GM TUBE TOPICAL SCH ×2 (08:27→21:38)
[2018-02-23] MEDS: SODIUM CHLORIDE 0.9% FLUSH 10 ML FLUSH IV FLUSH SCH (08:27)
--- NOTE | 2018-02-23 19:08 | HHI.PR ---
Review/Management Diagnosis status epilepticus--resolved now off of versed and propofol Plan reduce phenobarbita dose to 100 mg Q 8 hr and recheck levels Monday Diagnosis/Plan: Subjective Subjective Comments No acute events reported No clinical seizures Active Medications Current Medications Medications (Trade) Dose Ordered Sig/Tiera Route Start Time Stop Time Status Last Admin (NS Flush) 2 ml UNSCH PRN IV FLUSH 02/10/18 11:15 Potassium Chloride 100 ml @ 25 mls/hr Q2H PRN IV 02/10/18 13:15 Potassium Chloride 100 ml @ 50 mls/hr Q2H PRN IV 02/10/18 13:15 (K-Lyte Cl Eff) 50 meq UNSCH PRN PO 02/10/18 13:15 02/12/18 09:38 Potassium Chloride 100 ml @ 25 mls/hr UNSCH PRN IV 02/10/18 13:15 Potassium Chloride 100 ml @ 50 mls/hr Q2H PRN IV 02/10/18 13:15 Magnesium Sulfate 4 gm/Sodium Chloride 100 ml @ 50 mls/hr UNSCH PRN IV 02/10/18 13:15 (Mag-Ox) 800 mg UNSCH PRN PO 02/10/18 13:15 Magnesium Sulfate 2 gm/Sodium Chloride 100 ml @ 50 mls/hr UNSCH PRN IV 02/10/18 13:15 (K-Phos) 2,000 mg Q4H PRN PO 02/10/18 13:15 Sodium Phosphate 30 mmol/Sodium Chloride 250 ml @ 42 mls/hr UNSCH PRN IV 02/10/18 13:15 (K-Phos) 2,000 mg UNSCH PRN PO/TUBE 02/10/18 13:15 Potassium Phosphate 30 mmol/ Sodium Chloride 260 ml @ 42 mls/hr UNSCH PRN IV 02/10/18 13:15 (Peridex 0.12% Liq) 15 ml BID@08,20 MT 02/10/18 20:00 02/23/18 08:26 (D50w (Vial) Inj) 25 ml UNSCH PRN IV PUSH 02/10/18 13:15 (NovoLIN R SUPPLEMENTAL SCALE) 1 Q6HR SQ 02/10/18 18:00 02/21/18 06:28 (Zofran Inj) 4 mg Q6H PRN IV PUSH 02/10/18 13:15 Miscellaneous Information 1 Q361D XX 02/10/18 13:15 02/10/18 13:15 (Chlorhexidine 2% Cloth) Taper DAILY@04 TOP 02/11/18 04:00 02/07/19 03:59 02/19/18 04:20 (Chlorhexidine 2% Cloth) 3 pack UNSCH PRN TOP 02/10/18 13:15 (Anahi-Colace) 1 tab BID PO 02/10/18 21:00 02/23/18 08:25 (Milk Of Magnesia Liq) 30 ml Q12H PRN PO 02/10/18 13:15 (Senokot) 17.2 mg Q12H PRN PO 02/10/18 13:15 (Dulcolax Supp) 10 mg DAILY PRN RECTAL 02/10/18 13:15 (Lactulose Liq) 30 ml DAILY PRN PO 02/10/18 13:15 Midazolam HCl 100 ml @ 2 mls/hr TITRATE PRN IV 02/10/18 14:15 02/20/18 08:30 (Ativan Inj) 2 mg Q1H PRN IV PUSH 02/11/18 15:00 02/14/18 01:48 Propofol 100 ml @ 2.535 mls/ hr TITRATE PRN IV 02/11/18 15:00 02/21/18 01:55 Lacosamide 100 mg/ Sodium Chloride 110 ml @ 110 mls/hr Q8H IV 02/15/18 12:00 02/23/18 11:46 (NS Flush) See Protocol DAILY IV FLUSH 02/18/18 09:00 02/23/18 08:27 (NS Flush) See Protocol UNSCH PRN IV FLUSH 02/17/18 17:45 (Heparin Central Flush) See Protocol DAILY IV FLUSH 02/18/18 09:00 02/23/18 10:54 (Heparin Central Flush) See Protocol UNSCH PRN IV FLUSH 02/17/18 17:45 02/23/18 15:11 (NS Flush) UNSCH PRN IV FLUSH 02/17/18 17:45 02/23/18 15:11 (Tylenol 650 Mg/ 20 ml Liq) 650 mg Q6H PRN PO 02/18/18 09:30 02/22/18 19:57 (Tears Naturale Opth Soln) 1 drop Q8HR EACH EYE 02/18/18 14:00 02/23/18 14:02 (Albuterol Neb) 2.5 mg Q2HR NEB PRN NEB 02/18/18 09:30 02/19/18 00:33 (Trandate Inj) 10 mg Q1H PRN IV PUSH 02/18/18 09:30 02/23/18 15:11 (Prevacid Odt) 30 mg DAILY NG 02/19/18 09:00 02/23/18 08:25 (Singulair) 10 mg HS PO 02/18/18 21:00 02/22/18 19:56 (Xalatan 0.005% Opth Soln) 1 drop HS EACH EYE 02/18/18 21:00 02/22/18 19:40 (Lovenox Inj) 40 mg Q24H SQ 02/19/18 06:00 02/23/18 05:25 (Nitroglycerin 2% Oint) 2 inch Q6HR PRN TOPICAL 02/18/18 13:15 (Apresoline Inj) 10 mg Q1HR PRN IV PUSH 02/18/18 13:15 02/23/18 06:05 (Brethine Inj) 1 mg UNSCH PRN SQ 02/18/18 18:45 Phenylephrine HCl 160 mg/Sodium Chloride 500 ml @ 1.87 mls/hr TITRATE PRN IV 02/18/18 20:00 02/18/18 22:09 (Synthroid) 88 mcg DAILY@0600 PO 02/20/18 06:00 02/23/18 05:25 Valproate Sodium 500 mg/Sodium Chloride 105 ml @ 105 mls/hr Q4HR IV 02/19/18 20:00 02/23/18 14:02 (Duoneb Neb) 1 ampule Q6HR NEB INH 02/21/18 16:00 02/23/18 16:00 (Baciguent Oint) 1 applic Q12HR TOPICAL 02/21/18 21:00 02/23/18 08:27 (Flagyl) 500 mg Q8HR PO 02/22/18 14:00 02/23/18 14:02 (Prinivil) 5 mg BID PO 02/22/18 21:00 02/23/18 08:25 (Luminal Inj) 130 mg Q8H IV 02/23/18 02:00 02/23/18 10:54 Allergies Allergies Coded Allergies fluconazole (Unverified Allergy, Severe, 02/10/18) hydromorphone (Unverified Allergy, Severe, 02/10/18) levetiracetam (Unverified Allergy, Severe, Anaphylaxis, 02/10/18) rifampin (Unverified Allergy, Severe, 02/10/18) phenytoin (Unverified Allergy, Mild, Rash, 02/10/18) Exam I&O / VS Vital Signs Date Time Temp Pulse Resp B/P (MAP) Pulse Ox O2 Delivery O2 Flow Rate FiO2 02/23/18 16:01 97 40 02/23/18 16:00 71 02/23/18 14:00 79 02/23/18 12:00 79 02/23/18 11:10 98 40 02/23/18 10:00 79 02/23/18 08:00 79 02/23/18 08:00 99.1 79 20 160/68 (98) 96 02/23/18 08:00 40 02/23/18 07:40 40 02/23/18 07:40 94 40 02/23/18 06:00 75 02/23/18 04:10 95 40 02/23/18 04:00 40 02/23/18 04:00 81 02/23/18 04:00 99.4 81 16 206/85 (125) 97 02/23/18 03:45 80 16 172/85 (114) 98 02/23/18 03:30 80 16 179/83 (115) 97 02/23/18 03:15 80 16 183/84 (117) 100 02/23/18 03:01 80 16 190/80 (116) 97 02/23/18 03:00 81 16 96 02/23/18 02:00 74 16 145/66 (92) 97 02/23/18 02:00 74 02/23/18 01:00 77 16 132/67 (88) 96 02/23/18 00:11 96 40 02/23/18 00:00 99.6 77 16 129/67 (87) 95 02/23/18 00:00 40 02/23/18 00:00 77 02/22/18 23:00 78 16 125/58 (80) 96 02/22/18 22:00 81 16 121/63 (82) 96 02/22/18 22:00 81 02/22/18 21:00 83 17 122/62 (82) 96 02/22/18 20:48 96 40 02/22/18 20:00 40 02/22/18 20:00 85 02/22/18 20:00 100.7 85 23 139/60 (86) 95 Exam Comments opens eyes to voice No tonic clonic activity PERRL, EOM intact to dolls maneuver No focal deficit Objective Micro and Labs Laboratory Tests Test 02/23/18 03:45 02/23/18 10:26 White Blood Count 12.2 Red Blood Count 2.42 Hemoglobin 8.0 Hematocrit 24.2 Mean Corpuscular Volume 100.0 Mean Corpuscular Hemoglobin 32.9 Mean Corpuscular Hemoglobin Concent 32.9 Red Cell Distribution Width 15.9 Platelet Count 366 Mean Platelet Volume 8.8 Neutrophils (%) (Auto) 73.5 Lymphocytes (%) (Auto) 16.4 Monocytes (%) (Auto) 6.9 Eosinophils (%) (Auto) 2.7 Basophils (%) (Auto) 0.5 Neutrophils # (Auto) 9.0 Lymphocytes # (Auto) 2.0 Monocytes # (Auto) 0.8 Eosinophils # (Auto) 0.3 Basophils # (Auto) 0.1 CBC Comment AUTO DIFF Differential Total Cells Counted 100 Neutrophils % (Manual) 50 Band Neutrophils % 27 Lymphocytes % 11 Monocytes % 7 Eosinophils % 1 Basophils % 1 Neutrophils # (Manual) 9.8 Metamyelocytes 1 Myelocytes 2 Nucleated Red Blood Cells 2 Differential Comment FINAL DIFF MANUAL Platelet Estimate NORMAL Platelet Morphology Comment NORMAL Blood Urea Nitrogen 25 Creatinine 0.37 Random Glucose 133 Total Protein 5.8 Albumin 1.4 Calcium Level 8.4 Phosphorus Level 3.2 Magnesium Level 2.2 Alkaline Phosphatase 75 Aspartate Amino Transf (AST/SGOT) 23 Alanine Aminotransferase (ALT/SGPT) 11 Total Bilirubin 0.2 Sodium Level 146 Potassium Level 3.9 Chloride Level 111 Carbon Dioxide Level 30.2 Anion Gap 5 Estimat Glomerular Filtration Rate 174 Valproic Acid (Depakene) Level 48 55 Phenobarbital Level 36.1 39.6 Date/Time Source Procedure Growth Status 02/19/18 15:13 Blood Line Aerobic Blood Culture - Preliminary NO GROWTH IN 4 DAYS Resulted 02/19/18 15:13 Blood Line Anaerobic Blood Culture - Preliminary NO GROWTH IN 4 DAYS Resulted 02/19/18 21:30 Sputum Endotracheal Gram Stain - Final Complete 02/19/18 21:30 Sputum Endotracheal Sputum Culture - Final HEAVY GROWTH NORMAL RESPIRATORY EZEKIEL Complete 02/18/18 14:00 Urine Catheterized Urine Urine Culture - Final Kathy Glabrata Complete Loy Headley MD PhD Feb 23, 2018 19:08
--- NOTE | 2018-02-23 19:43 | HHI.CCPN ---
Subjective Remarks/Hospital Course This is a 67-year-old female with a history of poorly controlled seizures who presents with acute altered mental status. She was last seen normal at 3 AM this morning. Initially she was considered to be a stroke alert, however CT noncontrasted brain was negative and her nonfocal appearance was much more suggestive of seizures and stroke, along with the fact that her last seen normal time was significantly delayed. Stat EEG was ordered and she was found to be in status epilepticus. She was emergently intubated due to her poor mental status. I was called immediately down to the bedside for the EEG demonstrating status. At the bedside, I pushed 10 mg of Versed IV 1 and started her on a Versed drip at 10 mg an hour. No information is available from the patient due to her mental status. ROS is unobtainable. The majority of the information I have is obtained from medical record, and in specifically the H&P documented by Dr. Guerra back in October 2017, which is very helpful. In reading through her chart, it appears that when she comes off her Topamax, she goes into status. It appears that she has recently come off Topamax again due to side effects. She is anaphylactically allergic to Keppra and phenytoin, so these are not available to us to use. Versed drip was used successfully in her last admission October 2017, so that is what we have chosen. I have spoken with Dr. Headley who is not only an on-call neurologist but her personal neurologist who sees her frequently, and he agrees with this plan. He also thinks that Vimpat is a good option for seizure control, which I agree with. We will plan to load her with that. 02/11/18: Remains encephalopathy on the vent. No spontaneous movement noted when Versed is held. Will get a repeat EEG today. Wean sedation only if seizure controlled 02/12: Calm now, no convulsive activity. EEG result pending. Midazolam at 10. 02/13: On continuous EEG monitoring, no seizures noted. Versed had been weaned down to 5 mg/h, propofol at 20 mcg/kg/min. Patient does not open eyes or moves spontaneously 02/14: On attempted sedation wean yesterday night patient developed 2 episodes of seizures. Currently no clinical seizures. I discussed with Dr. Headley, will start phenobarbital 90 mg IV every 8 hours. Repeat EEG today. Currently back on 50 mcg/kg/min of propofol, Versed 7 mg per hour 02/15: Remains heavily sedated, started on phenobarbital IV yesterday. Level only 2.8. Will increase dose to 120 mg every 8 hours repeat level in a.m. EEG today pending. No sedation weaning without clearance from Dr. Headley. EEG yesterday showed some left-sided phase reversal. Leukocytosis with bandemia noted, will re culture 02/16: Pt had persistent epileptiform activity on eeg 02/[address] Headley. No sedation vacation until repeat EEG shows resolution. I have updated about this at the bedside. Repeat cultures pending at this time. Check renal ultrasound as the patient had recent hydronephrosis, ureteral stent. Patient remains critically ill in severely encephalopathic due to uncontrolled seizures 02/17: remains deeply sedated for status epilepticus. phenobarb level 55.[address] Headley managing anti-epileptics: very difficult to control seizures as well as difficult medication titration given multiple anaphylactic allergies to anticonvulsants. 02/18: T-max 100. Currently 99.4. Tolerating tube feeding. No bowel movement. 4 days. Remains sedated on midazolam and propofol drips 02/19: T-max 101.6. Currently 99.6. Tolerating tube feeds. 2 problems overnight. Remains on midazolam and propofol drips and phenobarbital, valproic acid and lacosamide 02/20: Afebrile. Propofol increased to 30 mg/kg/min overnight. Suppressing seizures currently. Increasing antiepileptics per neurology. Tolerating tube feeding. Positive BM. 02/21: Afebrile. Off propofol drip. Midazolam drip at 1 mg an hour. No signs of seizure activity on the last 2 EEGs. Tolerating tube feeding. Positive BM. 02/22: Off all sedation. EEG reveals moderate to severe encephalopathy. No epileptiform activity. Blinks eyes. Withdraws to pain in all 4 extremities. Subjective 02/23: Again off all sedation. Phenobarbital decreased to 100 mg every 8 hours per neurology. Opens eyes and blinks. Does not follow commands. Quite edematous. Objective Vital Signs Date Time Temp Pulse Resp B/P (MAP) Pulse Ox O2 Delivery O2 Flow Rate FiO2 02/23/18 16:01 97 40 02/23/18 16:00 71 02/23/18 08:00 99.1 20 160/68 (98) Intake and Output 02/23/18 02/23/18 02/23/18 07:59 15:59 23:59 Intake Total 1294 ml Output Total 1050 ml Balance 244 ml Result Diagram: 02/23/18 0345 02/23/18 0345 Other Results Microbiology Date/Time Source Procedure Growth Status 02/19/18 15:13 Blood Line Aerobic Blood Culture - Preliminary NO GROWTH IN 4 DAYS Resulted 02/19/18 15:13 Blood Line Anaerobic Blood Culture - Preliminary NO GROWTH IN 4 DAYS Resulted 02/19/18 21:30 Sputum Endotracheal Gram Stain - Final Complete 02/19/18 21:30 Sputum Endotracheal Sputum Culture - Final HEAVY GROWTH NORMAL RESPIRATORY EZEKIEL Complete 02/18/18 14:00 Urine Catheterized Urine Urine Culture - Final Kathy Glabrata Complete Imaging Last Impressions Chest X-Ray 02/23/18 0600 Signed Impressions: Service Date/Time: Friday, February 23, 2018 05:17 - CONCLUSION: No significant change Bautista Paul MD Renal Ultrasound 02/16/18 0000 Signed Impressions: Service Date/Time: Friday, February 16, 2018 10:17 - CONCLUSION: 1. Unremarkable renal ultrasound examination without evidence for obstructive uropathy. Adin Sanchez MD Head CT 02/10/18 1115 Signed Impressions: Service Date/Time: Saturday, February 10, 2018 12:19 - CONCLUSION: Stable negative noncontrast CT. Mustapha Grossman MD Brain MRI 02/10/18 0000 Signed Impressions: Service Date/Time: Saturday, February 10, 2018 16:30 - CONCLUSION: 1. Stable appearance with no acute hemorrhage, mass or infarction. 2. Moderate atrophic change and stable mild ventricular prominence. Mustapha Grossman MD Objective Remarks GENERAL: 67-year-old female currently orotracheally intubated HEENT: Normocephalic. Atraumatic. Pupils 2mm, equal, round, reactive, conjugate. Mucous membranes are moist and pink.. NECK: Trachea is midline. Orally intubated. CHEST: Essentially clear to auscultation bilaterally without wheezes rales rhonchi CARDIOVASCULAR: RRR. S1, S2 no strip without murmur ABDOMEN: Soft, nontender, nondistended. No guarding. MUSCULOSKELETAL: Pulses 2+. 2+ peripheral edema NEUROLOGICAL: . Opens eyes to voice. Does not follow commands. Positive cough. Positive corneal reflex. Withdraws to pain bilateral upper extremities. Upward toes. SKIN: Bullous/clear areas bilateral upper extremities right greater than left. Urinary Catheter: Yes Assessment to: Continue Ardon insert reason: Prolonged Immobilization Vascular Central Line Catheter: Yes Assessment to: Continue Date of Insertion: Feb 17, 2018 Line: PICC Side: Left Location: Antecubital A/P Assessment and Plan Neuro/Psych: Status epilepticus Elevated IOP Acute encephalopathy Off midazolam and propofol drips was 12 hours Continue valproate 500 mg IV every 4 hours. Level currently 55. Continue phenobarbital 100 mg IV every 8 hours. Level currently 39.2 Continue lacosamide 100 mg IV every 8 hours. MRI brain 02/10 revealed mild ventricular enlargement. Atrophy. EEG 02/21 revealed moderate encephalopathy. No epileptic activity EEG 02/20 revealed moderate to severe encephalopathy. No epileptiform activity EEG brain 02/18 revealed suppressed platelets. EEG brain 02/16 revealed left frontal central spiking. -EEG 02/15/18 showed persistent seizure activity 02/14 probable phase reversal noted on left side. 02/15 persistent seizures -EEG repeat 02/12 no active seizures. -No sedation vacation until cleared by Dr. Headley -Continue ICU care, frequent neuro checks At home on valproic acid 500 mg 3 times daily with 250 mg at night Acetaminophen 650 mg every 6 hours as needed fever Continue bimatoprost 0.01% 1 drop each eye at night with appropriate hospital substitution latanoprost 0.005% 1 drop each eye at night Resp: Acute respiratory failure/hypoxic and hypercapnic ACV 15/500/5/40 PSV trial 15/5 and 40% Ventilator bundle Albuterol/ipratropium aerosols every 6 hours with albuterol aerosols every 2 hours as needed dyspnea Continue montelukast 10 mg by tube daily Spontaneous breathing trials when okay with neurology Follow-up chest x-ray in a.m. 02/24 CV: Hypertension Dyslipidemia Off phenylephrine drip at 10 mcg/min to maintain mean arterial pressure greater than 65 When appropriate lisinopril 20 mg p.o. daily/home medication for hypertension. Currently on 5 mg twice daily As needed hydralazine/labetalol and Nitropaste to keep systolic blood pressure less than 170 Continue aspirin 81 mg p.o. daily Hospital no substitution for ezetimibe 10 mg p.o. daily for dyslipidemia GI Hypoalbuminemia OG tube and tube feeds with vital high-protein goal 65 cc/h per nutrition's recommendations Lansoprazole for GI prophylaxis Docusate sodium/senna 1 tablet twice daily for bowel regimen Continue free water 100 mL every 6 hours : Overactive bladder Recent ureteral stent for hydronephrosis -daily BMP. Sodium slowly improving currently 140 -ICU electrolyte protocol. Keep Mag>2 Renal ultrasound revealed no hydronephrosis 02/16 Currently holding oxybutynin 5 mg daily ID: -UTI with E. coli 02/10 Funguria C. difficile Will discontinue cefepime 2 g IV every 8 hours 02/18 with status epilepticus. Discontinue piperacillin/tazobactam day #5 per infectious disease on 02/22 Metronidazole 500 mg by tube 3 times daily for C. difficile Pertinent cultures No growth to date blood cultures 2 and sputum 02/19 02/18 -urine culture -C glabrata 02/15 -UA -no growth 02/15 blood cultures 2 -no growth 02/10 -UA -E. coli HEME: Leukocytosis Macrocytic anemia -Monitor CBC. Follow trend Endo Mild hyperglycemia Hypothyroidism Sliding scale insulin with NovoLog with Accu-Cheks to maintain euglycemia/low regimen every 6 hours Continue levothyroxine 75 mcg by tube daily recheck TSH was 10.4. Will increase levothyroxine to 88 mcg daily Access -Left antecubital PICC line placed 02/17/dual-lumen Prophylaxis -GI -lansoprazole -DVT -SCD/enoxaparin Level 3 follow-up. Tonny Lomeli MD Feb 23, 2018 19:43
--- NOTE | 2018-02-23 19:59 | HHI.IDPN ---
Note Infectious Disease Note Patient is on the ventilator. CPAP in progress. Afebrile No new seizure activity noted. Patient has lots of loose stools via rectal bag. Stool C. difficile toxin PCR is positive. Urine culture as Kathy glabrata. Presented to the emergency department on 02/10/2018 with acute altered mental status. She was found to be with status epilepticus. In the emergency department, the temperature phyllis to 103 degrees on the evening of admission. She was intubated and EEG has been repeatedly performed and shows that she is continuing to have seizure activity. The patient continues to have fever with temperature spike of 102 early today. She received IV antibiotic treatment for urinary tract infection due to Escherichia coli, which was cultured on admission urine culture. PAST MEDICAL HISTORY: Hypertension, hyperlipidemia, seizure disorder, urinary incontinence, history of back surgery, history of shoulder surgery, hysterectomy, history of knee surgery. ALLERGIES: FLUCONAZOLE, PHENYTOIN, RIFAMPIN, LEVETIRACETAM, HYDROMORPHONE. MEDICATIONS: Current Medications Medications (Trade) Dose Ordered Sig/Tiera Route PRN Reason Start Time Stop Time Status Last Admin Dose Admin Sodium Chloride (NS Flush) 2 ml UNSCH PRN IV FLUSH FLUSH AFTER USING IV ACCESS 02/10/18 11:15 Potassium Chloride 100 ml @ 25 mls/hr Q2H PRN IV For Potassium 2.8 - 3.2 mEq/L 02/10/18 13:15 Potassium Chloride 100 ml @ 50 mls/hr Q2H PRN IV For Potassium 2.8 - 3.2 mEq/L 02/10/18 13:15 Potassium Bicarb/ Potassium Chloride (K-Lyte Cl Eff) 50 meq UNSCH PRN PO For Potassium 3.3 - 3.5 mEq/L 02/10/18 13:15 02/12/18 09:38 Potassium Chloride 100 ml @ 25 mls/hr UNSCH PRN IV For Potassium 3.3 - 3.5 mEq/L 02/10/18 13:15 Potassium Chloride 100 ml @ 50 mls/hr Q2H PRN IV For Potassium 3.3 - 3.5 mEq/L 02/10/18 13:15 Magnesium Sulfate 4 gm/Sodium Chloride 100 ml @ 50 mls/hr UNSCH PRN IV For Magnesium 0.9 - 1.1 mg/dL 02/10/18 13:15 Magnesium Oxide (Mag-Ox) 800 mg UNSCH PRN PO For Magnesium 1.2 - 1.6 mg/dL 02/10/18 13:15 Magnesium Sulfate 2 gm/Sodium Chloride 100 ml @ 50 mls/hr UNSCH PRN IV For Magnesium 1.2 - 1.6 mg/dL 02/10/18 13:15 Potassium Phosphate (K-Phos) 2,000 mg Q4H PRN PO For Phosphorus < 2.5 mg/dL 02/10/18 13:15 Sodium Phosphate 30 mmol/Sodium Chloride 250 ml @ 42 mls/hr UNSCH PRN IV For Phosphorus < 2.5 mg/dL 02/10/18 13:15 Potassium Phosphate (K-Phos) 2,000 mg UNSCH PRN PO/TUBE SEE LABEL COMMENTS 02/10/18 13:15 Potassium Phosphate 30 mmol/ Sodium Chloride 260 ml @ 42 mls/hr UNSCH PRN IV SEE LABEL COMMENTS 02/10/18 13:15 Chlorhexidine Gluconate (Peridex 0.12% Liq) 15 ml BID@08,20 MT 02/10/18 20:00 02/23/18 08:26 Dextrose (D50w (Vial) Inj) 25 ml UNSCH PRN IV PUSH HYPOGLYCEMIA-SEE COMMENTS 02/10/18 13:15 Insulin Human Regular (NovoLIN R SUPPLEMENTAL SCALE) 1 Q6HR SQ 02/10/18 18:00 02/21/18 06:28 Ondansetron HCl (Zofran Inj) 4 mg Q6H PRN IV PUSH NAUSEA OR VOMITING 02/10/18 13:15 Miscellaneous Information 1 Q361D XX 02/10/18 13:15 02/10/18 13:15 Chlorhexidine Gluconate (Chlorhexidine 2% Cloth) Taper DAILY@04 TOP 02/11/18 04:00 02/07/19 03:59 02/19/18 04:20 Chlorhexidine Gluconate (Chlorhexidine 2% Cloth) 3 pack UNSCH PRN TOP HYGIENIC CARE 02/10/18 13:15 Senna/Docusate Sodium (Anahi-Colace) 1 tab BID PO 02/10/18 21:00 02/23/18 08:25 Magnesium Hydroxide (Milk Of Magnesia Liq) 30 ml Q12H PRN PO Mild constipation 02/10/18 13:15 Sennosides (Senokot) 17.2 mg Q12H PRN PO Moderate constipation 02/10/18 13:15 Bisacodyl (Dulcolax Supp) 10 mg DAILY PRN RECTAL SEVERE CONSITIPATION 02/10/18 13:15 Lactulose (Lactulose Liq) 30 ml DAILY PRN PO SEVERE CONSITIPATION 02/10/18 13:15 Midazolam HCl 100 ml @ 2 mls/hr TITRATE PRN IV SEDATION 02/10/18 14:15 02/20/18 08:30 Lorazepam (Ativan Inj) 2 mg Q1H PRN IV PUSH seizures 02/11/18 15:00 02/14/18 01:48 Propofol 100 ml @ 2.535 mls/ hr TITRATE PRN IV SEDATION 02/11/18 15:00 02/21/18 01:55 Lacosamide 100 mg/ Sodium Chloride 110 ml @ 110 mls/hr Q8H IV 02/15/18 12:00 02/23/18 11:46 Sodium Chloride (NS Flush) See Protocol DAILY IV FLUSH 02/18/18 09:00 02/23/18 08:27 Sodium Chloride (NS Flush) See Protocol UNSCH PRN IV FLUSH SEE PROTOCOL TABLE 02/17/18 17:45 Heparin Sodium (Porcine) (Heparin Central Flush) See Protocol DAILY IV FLUSH 02/18/18 09:00 02/23/18 10:54 Heparin Sodium (Porcine) (Heparin Central Flush) See Protocol UNSCH PRN IV FLUSH SEE PROTOCOL TABLE 02/17/18 17:45 02/23/18 15:11 Sodium Chloride (NS Flush) UNSCH PRN IV FLUSH SEE PROTOCOL TABLE 02/17/18 17:45 02/23/18 15:11 Acetaminophen (Tylenol 650 Mg/ 20 ml Liq) 650 mg Q6H PRN PO fever 02/18/18 09:30 02/22/18 19:57 Artificial Tears (Tears Naturale Opth Soln) 1 drop Q8HR EACH EYE 02/18/18 14:00 02/23/18 14:02 Albuterol Sulfate (Albuterol Neb) 2.5 mg Q2HR NEB PRN NEB dyspnea 02/18/18 09:30 02/19/18 00:33 Labetalol HCl (Trandate Inj) 10 mg Q1H PRN IV PUSH SBP>170, DBP>90 02/18/18 09:30 02/23/18 15:11 Lansoprazole (Prevacid Odt) 30 mg DAILY NG 02/19/18 09:00 02/23/18 08:25 Montelukast Sodium (Singulair) 10 mg HS PO 02/18/18 21:00 02/22/18 19:56 Latanoprost (Xalatan 0.005% Opth Soln) 1 drop HS EACH EYE 02/18/18 21:00 02/22/18 19:40 Enoxaparin Sodium (Lovenox Inj) 40 mg Q24H SQ 02/19/18 06:00 02/23/18 05:25 Nitroglycerin (Nitroglycerin 2% Oint) 2 inch Q6HR PRN TOPICAL SBP>160, DBP>90 02/18/18 13:15 Hydralazine HCl (Apresoline Inj) 10 mg Q1HR PRN IV PUSH SBP>160, DBP>90 02/18/18 13:15 02/23/18 06:05 Terbutaline Sulfate (Brethine Inj) 1 mg UNSCH PRN SQ For Extravasation 02/18/18 18:45 Phenylephrine HCl 160 mg/Sodium Chloride 500 ml @ 1.87 mls/hr TITRATE PRN IV Blood pressure management 02/18/18 20:00 02/18/18 22:09 Levothyroxine Sodium (Synthroid) 88 mcg DAILY@0600 PO 02/20/18 06:00 02/23/18 05:25 Valproate Sodium 500 mg/Sodium Chloride 105 ml @ 105 mls/hr Q4HR IV 02/19/18 20:00 02/23/18 14:02 Albuterol/ Ipratropium (Duoneb Neb) 1 ampule Q6HR NEB INH 02/21/18 16:00 02/23/18 16:00 Bacitracin (Baciguent Oint) 1 applic Q12HR TOPICAL 02/21/18 21:00 02/23/18 08:27 Metronidazole (Flagyl) 500 mg Q8HR PO 02/22/18 14:00 02/23/18 14:02 Lisinopril (Prinivil) 5 mg BID PO 02/22/18 21:00 02/23/18 08:25 Phenobarbital Sodium (Luminal Inj) 100 mg Q8H IV 02/24/18 02:00 Objective: Vital Signs Date Time Temp Pulse Resp B/P (MAP) Pulse Ox O2 Delivery O2 Flow Rate FiO2 02/23/18 19:00 74 14 141/62 (88) 97 02/23/18 18:00 79 02/23/18 18:00 73 16 145/63 (90) 98 02/23/18 17:00 71 16 142/65 (90) 98 02/23/18 16:01 97 40 02/23/18 16:00 40 02/23/18 16:00 98.9 71 16 141/63 (89) 97 02/23/18 16:00 71 02/23/18 15:16 67 14 138/61 (86) 97 02/23/18 15:00 80 16 209/94 (132) 98 02/23/18 14:00 79 02/23/18 14:00 79 17 161/71 (101) 97 02/23/18 13:00 79 17 166/72 (103) 97 02/23/18 12:00 79 02/23/18 12:00 40 02/23/18 12:00 99.0 79 17 158/71 (100) 97 02/23/18 11:10 98 40 02/23/18 11:00 79 18 151/67 (95) 98 02/23/18 10:00 79 18 160/70 (100) 98 02/23/18 10:00 79 02/23/18 09:00 80 18 165/71 (102) 97 02/23/18 08:00 79 02/23/18 08:00 99.1 79 20 160/68 (98) 96 02/23/18 08:00 40 02/23/18 07:40 40 02/23/18 07:40 94 40 02/23/18 06:00 75 02/23/18 04:10 95 40 02/23/18 04:00 40 02/23/18 04:00 81 02/23/18 04:00 99.4 81 16 206/85 (125) 97 02/23/18 03:45 80 16 172/85 (114) 98 02/23/18 03:30 80 16 179/83 (115) 97 02/23/18 03:15 80 16 183/84 (117) 100 02/23/18 03:01 80 16 190/80 (116) 97 02/23/18 03:00 81 16 96 02/23/18 02:00 74 16 145/66 (92) 97 02/23/18 02:00 74 02/23/18 01:00 77 16 132/67 (88) 96 02/23/18 00:11 96 40 02/23/18 00:00 99.6 77 16 129/67 (87) 95 02/23/18 00:00 40 02/23/18 00:00 77 02/22/18 23:00 78 16 125/58 (80) 96 02/22/18 22:00 81 16 121/63 (82) 96 02/22/18 22:00 81 02/22/18 21:00 83 17 122/62 (82) 96 02/22/18 20:48 96 40 02/22/18 20:00 40 02/22/18 20:00 85 02/22/18 20:00 100.7 85 23 139/60 (86) 95 Laboratory Tests Test 02/22/18 04:20 02/23/18 03:45 White Blood Count 12.2 TH/MM3 12.2 TH/MM3 Red Blood Count 2.57 MIL/MM3 2.42 MIL/MM3 Hemoglobin 8.7 GM/DL 8.0 GM/DL Hematocrit 25.5 % 24.2 % Mean Corpuscular Volume 99.3 FL 100.0 FL Mean Corpuscular Hemoglobin 33.8 PG 32.9 PG Mean Corpuscular Hemoglobin Concent 34.0 % 32.9 % Red Cell Distribution Width 16.3 % 15.9 % Platelet Count 299 TH/MM3 366 TH/MM3 Mean Platelet Volume 9.2 FL 8.8 FL Neutrophils (%) (Auto) 79.6 % 73.5 % Lymphocytes (%) (Auto) 10.2 % 16.4 % Monocytes (%) (Auto) 5.8 % 6.9 % Eosinophils (%) (Auto) 3.6 % 2.7 % Basophils (%) (Auto) 0.8 % 0.5 % Neutrophils # (Auto) 9.7 TH/MM3 9.0 TH/MM3 Lymphocytes # (Auto) 1.2 TH/MM3 2.0 TH/MM3 Monocytes # (Auto) 0.7 TH/MM3 0.8 TH/MM3 Eosinophils # (Auto) 0.4 TH/MM3 0.3 TH/MM3 Basophils # (Auto) 0.1 TH/MM3 0.1 TH/MM3 CBC Comment AUTO DIFF AUTO DIFF Differential Total Cells Counted 100 100 Neutrophils % (Manual) 64 % 50 % Band Neutrophils % 16 % 27 % Lymphocytes % 9 % 11 % Monocytes % 5 % 7 % Eosinophils % 2 % 1 % Neutrophils # (Manual) 10.2 TH/MM3 9.8 TH/MM3 Metamyelocytes 4 % 1 % Differential Comment FINAL DIFF MANUAL FINAL DIFF MANUAL Platelet Estimate NORMAL NORMAL Platelet Morphology Comment NORMAL NORMAL Red Cell Morphology Comment NORMAL Basophils % 1 % Myelocytes 2 % Nucleated Red Blood Cells 2 /100 WBC Laboratory Tests Test 02/22/18 04:20 02/23/18 03:45 Blood Urea Nitrogen 21 MG/DL 25 MG/DL Creatinine 0.44 MG/DL 0.37 MG/DL Random Glucose 162 MG/DL 133 MG/DL Total Protein 5.8 GM/DL 5.8 GM/DL Albumin 1.4 GM/DL 1.4 GM/DL Calcium Level 8.4 MG/DL 8.4 MG/DL Phosphorus Level 2.5 MG/DL 3.2 MG/DL Magnesium Level 2.1 MG/DL 2.2 MG/DL Alkaline Phosphatase 154 U/L 75 U/L Aspartate Amino Transf (AST/SGOT) 26 U/L 23 U/L Alanine Aminotransferase (ALT/SGPT) 17 U/L 11 U/L Total Bilirubin 0.2 MG/DL 0.2 MG/DL Sodium Level 148 MEQ/L 146 MEQ/L Potassium Level 3.9 MEQ/L 3.9 MEQ/L Chloride Level 111 MEQ/L 111 MEQ/L Carbon Dioxide Level 30.5 MEQ/L 30.2 MEQ/L Anion Gap 7 MEQ/L 5 MEQ/L Estimat Glomerular Filtration Rate 142 ML/MIN 174 ML/MIN Imaging: Chest X-Ray 02/21/18 0600 Signed Impressions: Service Date/Time: Wednesday, February 21, 2018 03:25 - CONCLUSION: Bibasilar densities and probable pleural effusions. Kashif Forrest MD Chest X-Ray 02/20/18 0600 Signed Impressions: Service Date/Time: Tuesday, February 20, 2018 02:58 - CONCLUSION: Stable exam with bibasilar densities and probable pleural effusions. Kashif Forrest MD Renal Ultrasound 02/16/18 0000 Signed Impressions: Service Date/Time: Friday, February 16, 2018 10:17 - CONCLUSION: 1. Unremarkable renal ultrasound examination without evidence for obstructive uropathy. Adin Sanchez MD Head CT 02/10/18 1115 Signed Impressions: Service Date/Time: Saturday, February 10, 2018 12:19 - CONCLUSION: Stable negative noncontrast CT. Mustapha Grossman MD Brain MRI 02/10/18 0000 Signed Impressions: Service Date/Time: Saturday, February 10, 2018 16:30 - CONCLUSION: 1. Stable appearance with no acute hemorrhage, mass or infarction. 2. Moderate atrophic change and stable mild ventricular prominence. Mustapha Grossman MD PHYSICAL EXAMINATION: GENERAL: Patient is sedated. HEENT: Unable to fully assess. The patient cannot cooperate. No icterus. Oropharynx intubated. NECK: Supple, no adenopathy. LUNGS: Diminished breath sounds. HEART: Regular S1 and S2, without audible murmurs, rubs or gallops. ABDOMEN: Obese, soft, diminished bowel sounds. No tenderness appreciated. EXTREMITIES: Diffuse edema with clear fluid filled blisters on the arms. SKIN: No diffuse rash. NEUROLOGIC: Unable to assess. PSYCHIATRIC: Unable to assess. IMPRESSION: 1. Fever in patient with status epilepticus. Temperature improved. 2. Urinary tract infection due to Kathy. We will hold off on additional treatment for now. The urine culture can be repeated if the white blood cell count increases. 3. C. difficile colitis. It may be contributing to the elevated white blood cell count. 4. Acute respiratory failure. Probable pneumonia. Sputum culture has normal beka. Chest x-ray without acute infiltrate. 5. Probable sepsis. Blood cultures no growth. RECOMMENDATIONS: 1. Continue to treat the C. difficile with metronidazole. 2. Monitor white blood cell count. 3. Monitor clinical status. Dr. Cano available on weekend for ID if needed. Irving Rolle MD Feb 23, 2018 19:59
[2018-02-23] MEDS: MONTELUKAST SODIUM 10 MG TAB PO SCH (21:36)
[2018-02-23] MEDS: LATANOPROST 0.005% OPHT SOLN 2.5 ML BTL EACH EYE SCH (21:37)
[2018-02-24] VITALS (17 sets, daily range): BP systolic 141–167; BP diastolic 63–74; PULSE 74–91; RESP 14–16; TEMP 97.7–98.9; O2SAT 95–98
[2018-02-24] MEDS: VALPROATE INJ 500 MG in SODIUM CHLORIDE 0.9% INJ 100 ML IV SCH ×6 (01:06→19:48)
[2018-02-24] MEDS: PHENobarbital SOD 130 MG/ML VIAL IV SCH ×3 (01:07→17:38)
[2018-02-24] MEDS: RESP: ALBUTEROL 2.5 MG/IPRATROPIUM 0.5 MG NEB (SCH) INH ×4 (03:07→20:45)
[2018-02-24] MEDS: CHLORHEXIDINE GLUCONATE 2 % 1 PACK (2 CLOTHS) TOP SCH (04:00)
[2018-02-24] MEDS: LACOSAMIDE INJ 100 MG in SODIUM CHLORIDE 0.9% INJ 100 ML IV SCH ×3 (04:52→19:52)
[2018-02-24] MEDS: LABETALOL HCL 100 MG/20 ML VIAL IV PUSH PRN (04:52)
[2018-02-24] MEDS: ARTIFICIAL TEARS OPTH SOLN 15 ML BTL EACH EYE SCH ×3 (04:53→19:48)
--- NOTE | 2018-02-24 05:51 | RADRPT ---
EXAM DATE/TIME: 02/24/2018 04:03 [facility] COMPARISON: CHEST SINGLE AP, February 23, 2018, 5:17. INDICATIONS : Shortness of breath, possible pulmonary disease. MEDICAL HISTORY : Arthritis. Hypertension Seizures SURGICAL HISTORY : Hysterectomy. section. ENCOUNTER: Subsequent ACUITY: 2 weeks PAIN SCORE: Non-responsive. LOCATION: Bilateral chest FINDINGS: The cardiac silhouette is normal in transverse diameter. There is patchy alveolar disease bilaterally compatible with edema or pneumonia. Moderate size bilateral pleural effusions are identified. There has been no significant change when compared to the prior exam. A PICC line is in place via left-side d approach with its tip in the region of the superior vena cava. CONCLUSION: 1. Patchy alveolar disease characteristic of edema or pneumonia. There has been no significant dickinson e when compared to the prior exam. Bilateral effusions Inder Maria MD on February 24, 2018 at 5:47 Board Certified Radiologist. This report was verified electronically.
[2018-02-24] MEDS: INSULIN NovoLIN REGULAR SUPPLEMENTAL SCALE SQ SCH ×4 (06:00→17:41)
[2018-02-24] MEDS: LEVOTHYROXINE SODIUM 88 MCG TAB PO SCH (06:26)
[2018-02-24] MEDS: ENOXAPARIN SODIUM 40 MG/0.4 ML SYRINGE SQ SCH (06:26)
[2018-02-24] MEDS: metroNIDAZOLE 500 MG TAB PO SCH ×3 (06:26→19:52)
[2018-02-24 06:43] LABS: ALBUMIN 1.4 GM/DL (3.4-5.0); ALT (GPT) 12 U/L (10-53); AST (GOT) 24 U/L (15-37); BICARBONATE 28.7 MEQ/L (21.0-32.0); BLOOD UREA NITROGEN 28 MG/DL (7-18); CALCIUM 8.6 MG/DL (8.5-10.1); CHLORIDE 110 MEQ/L (98-107); CREATININE 0.37 MG/DL (0.50-1.00); GLOMERULAR FILTRATION RATE 174 ML/MIN (>89); GLUCOSE,RANDOM 129 MG/DL (74-106); MAGNESIUM 2.1 MG/DL (1.5-2.5); SODIUM (NA) 146 MEQ/L (136-145)
[2018-02-24 06:47] LABS: ALKALINE PHOSPHATASE 72 U/L (45-117); PHOSPHORUS 3.2 MG/DL (2.5-4.9); TOTAL BILIRUBIN ADULT 0.2 MG/DL (0.2-1.0); TOTAL PROTEIN 5.9 GM/DL (6.4-8.2)
--- NOTE | 2018-02-24 07:14 | MG ---
cc: Agapito Cunningham MD EEG RECORD NUMBER [id number] INTERPRETATION 10-20 microvolt, 4-6 Hz activity occurring with 2-3 areas delta activity. Limited driving with photic stimulation, appearance of spindle activity as well. Single lead EKG showing sinus rhythm. INTERPRETATION: Improved EEG demonstrating mild encephalopathy in sleep state. Clinical correlation. MD HAMMAD Wells/VAHID , 06:56 AM , 07:13 AM
[2018-02-24 08:18] LABS: AUTOMATED NEUTROPHIL # 10.1 TH/MM3 (1.8-7.7); BASOPHIL # 0.1 TH/MM3 (0-0.2); BASOPHIL % 0.6 % (0.0-2.0); EOSINOPHIL # 0.2 TH/MM3 (0-0.4); EOSINOPHIL % 1.6 % (0.0-4.0); HEMOGLOBIN 8.1 GM/DL (11.6-15.3); LYMPH % 19.2 % (9.0-44.0); LYMPHOCYTE # 2.7 TH/MM3 (1.0-4.8); MEAN CELL VOLUME 100.5 FL (80.0-100.0); MEAN CORPUSCULAR HEMOGLOBIN 32.6 PG (27.0-34.0); MEAN CORPUSCULAR HGB CONC 32.4 % (32.0-36.0); MEAN PLATELET VOLUME 8.7 FL (7.0-11.0); MONO % 7.2 % (0.0-8.0); NEUT % 71.4 % (16.0-70.0); PLATELET COUNT 415 TH/MM3 (150-450); RED BLOOD COUNT 2.49 MIL/MM3 (4.00-5.30); RED CELL DISTRIBUTION WIDTH 16.3 % (11.6-17.2); WHITE BLOOD COUNT 14.1 TH/MM3 (4.0-11.0)
[2018-02-24] MEDS: LANSOPRAZOLE SOLUTAB 30 MG TAB NG SCH (08:45)
[2018-02-24] MEDS: DOCUSATE SODIUM 50 MG/SENNA 8.6 MG TAB PO SCH ×2 (08:46→19:47)
[2018-02-24] MEDS: BACITRACIN TOP OINT 15 GM TUBE TOPICAL SCH ×2 (08:46→19:49)
[2018-02-24] MEDS: LISINOPRIL 5 MG TAB PO SCH (08:46)
[2018-02-24] MEDS: SODIUM CHLORIDE 0.9% FLUSH 10 ML FLUSH IV FLUSH SCH (09:00)
[2018-02-24 09:16] LABS: BANDS 9 % (0-6); LYMPHOCYTES 17 % (9-44); METAMYELOCYTES 3 % (0-1); MONOCYTES 3 % (0-8); MYELOCYTES 2 % (0-0); PLASMA CELLS 1 % (0-0); POLYS (SEG NEUTROPHILS) 64 % (16-70)
--- NOTE | 2018-02-24 12:00 | HHI.CCPN ---
Subjective Remarks/Hospital Course This is a 67-year-old female with a history of poorly controlled seizures who presents with acute altered mental status. She was last seen normal at 3 AM this morning. Initially she was considered to be a stroke alert, however CT noncontrasted brain was negative and her nonfocal appearance was much more suggestive of seizures and stroke, along with the fact that her last seen normal time was significantly delayed. Stat EEG was ordered and she was found to be in status epilepticus. She was emergently intubated due to her poor mental status. I was called immediately down to the bedside for the EEG demonstrating status. At the bedside, I pushed 10 mg of Versed IV 1 and started her on a Versed drip at 10 mg an hour. No information is available from the patient due to her mental status. ROS is unobtainable. The majority of the information I have is obtained from medical record, and in specifically the H&P documented by Dr. Guerra back in October 2017, which is very helpful. In reading through her chart, it appears that when she comes off her Topamax, she goes into status. It appears that she has recently come off Topamax again due to side effects. She is anaphylactically allergic to Keppra and phenytoin, so these are not available to us to use. Versed drip was used successfully in her last admission October 2017, so that is what we have chosen. I have spoken with Dr. Headley who is not only an on-call neurologist but her personal neurologist who sees her frequently, and he agrees with this plan. He also thinks that Vimpat is a good option for seizure control, which I agree with. We will plan to load her with that. 02/11/18: Remains encephalopathy on the vent. No spontaneous movement noted when Versed is held. Will get a repeat EEG today. Wean sedation only if seizure controlled 02/12: Calm now, no convulsive activity. EEG result pending. Midazolam at 10. 02/13: On continuous EEG monitoring, no seizures noted. Versed had been weaned down to 5 mg/h, propofol at 20 mcg/kg/min. Patient does not open eyes or moves spontaneously 02/14: On attempted sedation wean yesterday night patient developed 2 episodes of seizures. Currently no clinical seizures. I discussed with Dr. Headley, will start phenobarbital 90 mg IV every 8 hours. Repeat EEG today. Currently back on 50 mcg/kg/min of propofol, Versed 7 mg per hour 02/15: Remains heavily sedated, started on phenobarbital IV yesterday. Level only 2.8. Will increase dose to 120 mg every 8 hours repeat level in a.m. EEG today pending. No sedation weaning without clearance from Dr. Headley. EEG yesterday showed some left-sided phase reversal. Leukocytosis with bandemia noted, will re culture 02/16: Pt had persistent epileptiform activity on eeg 02/[address] Headley. No sedation vacation until repeat EEG shows resolution. I have updated about this at the bedside. Repeat cultures pending at this time. Check renal ultrasound as the patient had recent hydronephrosis, ureteral stent. Patient remains critically ill in severely encephalopathic due to uncontrolled seizures 02/17: remains deeply sedated for status epilepticus. phenobarb level 55.[address] Headley managing anti-epileptics: very difficult to control seizures as well as difficult medication titration given multiple anaphylactic allergies to anticonvulsants. 02/18: T-max 100. Currently 99.4. Tolerating tube feeding. No bowel movement. 4 days. Remains sedated on midazolam and propofol drips 02/19: T-max 101.6. Currently 99.6. Tolerating tube feeds. 2 problems overnight. Remains on midazolam and propofol drips and phenobarbital, valproic acid and lacosamide 02/20: Afebrile. Propofol increased to 30 mg/kg/min overnight. Suppressing seizures currently. Increasing antiepileptics per neurology. Tolerating tube feeding. Positive BM. 02/21: Afebrile. Off propofol drip. Midazolam drip at 1 mg an hour. No signs of seizure activity on the last 2 EEGs. Tolerating tube feeding. Positive BM. 02/22: Off all sedation. EEG reveals moderate to severe encephalopathy. No epileptiform activity. Blinks eyes. Withdraws to pain in all 4 extremities. 02/23: Again off all sedation. Phenobarbital decreased to 100 mg every 8 hours per neurology. Opens eyes and blinks. Does not follow commands. Quite edematous. SUBJECTIVE: 02/24: Afebrile. Currently on CPAP trial. Opens eyes and blinks. Does not follow commands. Receiving furosemide 40 mg 1 for diuresis. Objective Vital Signs Date Time Temp Pulse Resp B/P (MAP) Pulse Ox O2 Delivery O2 Flow Rate FiO2 02/24/18 11:44 97 35 02/24/18 10:00 74 02/24/18 08:00 98.0 14 162/74 (103) Intake and Output 02/24/18 02/24/18 02/25/18 08:00 16:00 00:00 Intake Total 1046 ml Output Total 1675 ml Balance -629 ml Result Diagram: 02/24/18 0728 02/24/18 0505 Other Results Microbiology Date/Time Source Procedure Growth Status 02/19/18 15:13 Blood Line Aerobic Blood Culture - Final NO GROWTH IN 5 DAYS Complete 02/19/18 15:13 Blood Line Anaerobic Blood Culture - Final NO GROWTH IN 5 DAYS Complete 02/19/18 21:30 Sputum Endotracheal Gram Stain - Final Complete 02/19/18 21:30 Sputum Endotracheal Sputum Culture - Final HEAVY GROWTH NORMAL RESPIRATORY EZEKIEL Complete 02/18/18 14:00 Urine Catheterized Urine Urine Culture - Final Kathy Glabrata Complete Imaging Last Impressions Chest X-Ray 02/24/18 0600 Signed Impressions: Service Date/Time: Saturday, February 24, 2018 04:03 - CONCLUSION: 1. Patchy alveolar disease characteristic of edema or pneumonia. There has been no significant change when compared to the prior exam. Bilateral effusions Inder Maria MD Renal Ultrasound 02/16/18 0000 Signed Impressions: Service Date/Time: Friday, February 16, 2018 10:17 - CONCLUSION: 1. Unremarkable renal ultrasound examination without evidence for obstructive uropathy. Adin Sanchez MD Head CT 02/10/18 1115 Signed Impressions: Service Date/Time: Saturday, February 10, 2018 12:19 - CONCLUSION: Stable negative noncontrast CT. Mustapha Grossman MD Brain MRI 02/10/18 0000 Signed Impressions: Service Date/Time: Saturday, February 10, 2018 16:30 - CONCLUSION: 1. Stable appearance with no acute hemorrhage, mass or infarction. 2. Moderate atrophic change and stable mild ventricular prominence. Mustapha Grossman MD Objective Remarks GENERAL: 67-year-old female currently orotracheally intubated HEENT: Normocephalic. Atraumatic. Pupils 2mm, equal, round, reactive, conjugate. Mucous membranes are moist and pink.. NECK: Trachea is midline. Orally intubated. CHEST: Essentially clear to auscultation bilaterally without wheezes rales rhonchi CARDIOVASCULAR: RRR. S1, S2 no strip without murmur ABDOMEN: Soft, nontender, nondistended. No guarding. MUSCULOSKELETAL: Pulses 2+. 2+ peripheral edema NEUROLOGICAL: . Opens eyes to voice. Does not follow commands. Positive cough. Positive corneal reflex. Withdraws to pain bilateral upper extremities. Upward toes. SKIN: Bullous/clear areas bilateral upper extremities right greater than left. Date of Insertion: Feb 17, 2018 Line: PICC Side: Left Location: Antecubital A/P Assessment and Plan Neuro/Psych: Status epilepticus Elevated IOP Acute encephalopathy Off midazolam and propofol drips was 12 hours Continue valproate 500 mg IV every 4 hours. Level currently 41. Continue phenobarbital 100 mg IV every 8 hours. Level currently 35.1 Continue lacosamide 100 mg IV every 8 hours. MRI brain 02/10 revealed mild ventricular enlargement. Atrophy. EEG 02/24 Improved EEG demonstrating mild encephalopathy in sleep state. Clinical correlation. EEG 02/21 revealed moderate encephalopathy. No epileptic activity EEG 02/20 revealed moderate to severe encephalopathy. No epileptiform activity EEG brain 02/18 revealed suppressed platelets. EEG brain 02/16 revealed left frontal central spiking. -EEG 02/15/18 showed persistent seizure activity / probable phase reversal noted on left side. 4/ persistent seizures -EEG repeat 02/12 no active seizures. -No sedation vacation until cleared by Dr. Headley -Continue ICU care, frequent neuro checks At home on valproic acid 500 mg 3 times daily with 250 mg at night Acetaminophen 650 mg every 6 hours as needed fever Continue bimatoprost 0.01% 1 drop each eye at night with appropriate hospital substitution latanoprost 0.005% 1 drop each eye at night Resp: Acute respiratory failure/hypoxic and hypercapnic ACV 15/500/5/40 PSV trial 15/5 and 40% Ventilator bundle Albuterol/ipratropium aerosols every 6 hours with albuterol aerosols every 2 hours as needed dyspnea Continue montelukast 10 mg by tube daily Spontaneous breathing trials when okay with neurology Follow-up chest x-ray in a.m. 02/24 CV: Hypertension Dyslipidemia Off phenylephrine drip at 10 mcg/min to maintain mean arterial pressure greater than 65 When appropriate lisinopril 20 mg p.o. daily/home medication for hypertension. Currently on 10 mg twice daily As needed hydralazine/labetalol and Nitropaste to keep systolic blood pressure less than 170 Continue aspirin 81 mg p.o. daily Hospital no substitution for ezetimibe 10 mg p.o. daily for dyslipidemia GI Hypoalbuminemia OG tube and tube feeds with vital high-protein goal 65 cc/h per nutrition's recommendations Lansoprazole for GI prophylaxis Docusate sodium/senna 1 tablet twice daily for bowel regimen Continue free water 100 mL every 6 hours : Overactive bladder Recent ureteral stent for hydronephrosis -daily BMP. Sodium slowly improving currently 140 -ICU electrolyte protocol. Keep Mag>2 Renal ultrasound revealed no hydronephrosis 02/16 Currently holding oxybutynin 5 mg daily ID: -UTI with E. coli 02/10 Funguria C. difficile Will discontinue cefepime 2 g IV every 8 hours 02/18 with status epilepticus. Discontinue piperacillin/tazobactam day #5 per infectious disease on 02/22 Metronidazole 500 mg by tube 3 times daily for C. difficile Pertinent cultures No growth to date blood cultures 2 and sputum 02/19 02/18 -urine culture -C glabrata 02/15 -UA -no growth 02/15 blood cultures 2 -no growth 02/10 -UA -E. coli HEME: Leukocytosis Macrocytic anemia -Monitor CBC. Follow trend Endo Mild hyperglycemia Hypothyroidism Sliding scale insulin with NovoLog with Accu-Cheks to maintain euglycemia/low regimen every 6 hours Continue levothyroxine 75 mcg by tube daily recheck TSH was 10.4. Will increase levothyroxine to 88 mcg daily Access -Left antecubital PICC line placed 02/17/dual-lumen Prophylaxis -GI -lansoprazole -DVT -SCD/enoxaparin Level 3 follow-up. Tonny Lomeli MD Feb 24, 2018 12:00
[2018-02-24] MEDS ORDERED: FUROSEMIDE 40 MG/4 ML VIAL IV PUSH ONE (12:15)
[2018-02-24] MEDS ORDERED: VALPROATE INJ 500 MG in SODIUM CHLORIDE 0.9% INJ 100 ML IV ONE (12:15)
[2018-02-24] MEDS: MONTELUKAST SODIUM 10 MG TAB PO SCH (19:47)
[2018-02-24] MEDS: LATANOPROST 0.005% OPHT SOLN 2.5 ML BTL EACH EYE SCH (19:49)
[2018-02-24] MEDS: CHLORHEXIDINE 0.12% (ORAL KIT) 15 ML CUP MT SCH (19:49)
[2018-02-24] MEDS: LISINOPRIL 10 MG TAB PO SCH (19:52)
[2018-02-25] VITALS (17 sets, daily range): BP systolic 116–148; BP diastolic 55–66; PULSE 16–102; RESP 13–18; TEMP 97.9–100.4; O2SAT 92–98
[2018-02-25] MEDS: VALPROATE INJ 500 MG in SODIUM CHLORIDE 0.9% INJ 100 ML IV SCH ×6 (02:50→21:18)
[2018-02-25] MEDS: PHENobarbital SOD 130 MG/ML VIAL IV SCH ×3 (02:50→21:23)
[2018-02-25] MEDS: RESP: ALBUTEROL 2.5 MG/IPRATROPIUM 0.5 MG NEB (SCH) INH ×3 (03:08→14:51)
[2018-02-25] MEDS: LACOSAMIDE INJ 100 MG in SODIUM CHLORIDE 0.9% INJ 100 ML IV SCH ×3 (04:00→21:18)
[2018-02-25] MEDS: CHLORHEXIDINE GLUCONATE 2 % 1 PACK (2 CLOTHS) TOP SCH (04:00)
[2018-02-25] MEDS: metroNIDAZOLE 500 MG TAB PO SCH ×3 (04:50→21:17)
[2018-02-25] MEDS: LEVOTHYROXINE SODIUM 88 MCG TAB PO SCH (04:50)
[2018-02-25] MEDS: ARTIFICIAL TEARS OPTH SOLN 15 ML BTL EACH EYE SCH ×3 (04:50→21:19)
[2018-02-25] MEDS: ENOXAPARIN SODIUM 40 MG/0.4 ML SYRINGE SQ SCH (04:50)
--- NOTE | 2018-02-25 05:15 | RADRPT ---
EXAM DATE/TIME: 02/25/2018 04:05 [facility] COMPARISON: CHEST SINGLE AP, February 24, 2018, 4:03. INDICATIONS : Shortness of breath, possible pulmonary disease. MEDICAL HISTORY : Arthritis. Hypertension Seizures SURGICAL HISTORY : Hysterectomy. section. ENCOUNTER: Subsequent ACUITY: 2 weeks PAIN SCORE: Non-responsive. LOCATION: Bilateral chest FINDINGS: The cardiac silhouette is enlarged in transverse diameter. There is bilateral lower lobe atelectasis versus pneumonia. Support lines and tubes are in satisfactory position. CONCLUSION: 1. Bilateral lower lobe atelectasis versus pneumonia. There has been no significant change when mariana red to the prior exam. Inder Maira MD on February 25, 2018 at 5:13 Board Certified Radiologist. This report was verified electronically.
[2018-02-25] MEDS: INSULIN NovoLIN REGULAR SUPPLEMENTAL SCALE SQ SCH ×4 (06:00→18:00)
[2018-02-25 07:22] LABS: HEMATOCRIT 22.9 % (35.0-46.0); HEMOGLOBIN 7.7 GM/DL (11.6-15.3); MEAN CELL VOLUME 101.1 FL (80.0-100.0); MEAN CORPUSCULAR HEMOGLOBIN 34.1 PG (27.0-34.0); MEAN CORPUSCULAR HGB CONC 33.7 % (32.0-36.0); RED BLOOD COUNT 2.27 MIL/MM3 (4.00-5.30); RED CELL DISTRIBUTION WIDTH 16.2 % (11.6-17.2); WHITE BLOOD COUNT 13.8 TH/MM3 (4.0-11.0)
[2018-02-25 07:23] LABS: AUTOMATED NEUTROPHIL # 9.1 TH/MM3 (1.8-7.7); BASOPHIL # 0.1 TH/MM3 (0-0.2); BASOPHIL % 0.8 % (0.0-2.0); EOSINOPHIL # 0.3 TH/MM3 (0-0.4); LYMPH % 23.6 % (9.0-44.0); LYMPHOCYTE # 3.3 TH/MM3 (1.0-4.8); MEAN PLATELET VOLUME 8.5 FL (7.0-11.0); MONO % 7.4 % (0.0-8.0); NEUT % 66.2 % (16.0-70.0); PLATELET COUNT 407 TH/MM3 (150-450)
[2018-02-25 07:44] LABS: ALBUMIN 1.4 GM/DL (3.4-5.0); ALT (GPT) 11 U/L (10-53); AST (GOT) 23 U/L (15-37); BICARBONATE 29.2 MEQ/L (21.0-32.0); BLOOD UREA NITROGEN 24 MG/DL (7-18); CALCIUM 8.7 MG/DL (8.5-10.1); CHLORIDE 109 MEQ/L (98-107); GLOMERULAR FILTRATION RATE 159 ML/MIN (>89); GLUCOSE,RANDOM 129 MG/DL (74-106); SODIUM (NA) 145 MEQ/L (136-145)
[2018-02-25 07:48] LABS: ALKALINE PHOSPHATASE 71 U/L (45-117); PHOSPHORUS 3.1 MG/DL (2.5-4.9); TOTAL BILIRUBIN ADULT 0.2 MG/DL (0.2-1.0); TOTAL PROTEIN 5.8 GM/DL (6.4-8.2)
[2018-02-25] MEDS: CHLORHEXIDINE 0.12% (ORAL KIT) 15 ML CUP MT SCH ×2 (08:00→20:00)
[2018-02-25] MEDS: LANSOPRAZOLE SOLUTAB 30 MG TAB NG SCH (08:23)
[2018-02-25] MEDS: DOCUSATE SODIUM 50 MG/SENNA 8.6 MG TAB PO SCH ×2 (08:23→21:17)
[2018-02-25] MEDS: LISINOPRIL 10 MG TAB PO SCH ×2 (08:23→21:23)
[2018-02-25] MEDS: SODIUM CHLORIDE 0.9% FLUSH 10 ML FLUSH IV FLUSH SCH (08:24)
[2018-02-25 09:38] LABS: BANDS 5 % (0-6); CORRECTED NUCLEATED RBC 1 /100 WBC (0-0); LYMPHOCYTES 22 % (9-44); METAMYELOCYTES 3 % (0-1); MONOCYTES 5 % (0-8); MYELOCYTES 4 % (0-0); NEUTROPHIL # MANUAL DIFF 9.9 TH/MM3 (1.8-7.7); NUCLEATED RED BLOOD CELL 1 (0-0); POLYS (SEG NEUTROPHILS) 60 % (16-70)
--- NOTE | 2018-02-25 15:21 | HHI.CCPN ---
Subjective Remarks/Hospital Course This is a 67-year-old female with a history of poorly controlled seizures who presents with acute altered mental status. She was last seen normal at 3 AM this morning. Initially she was considered to be a stroke alert, however CT noncontrasted brain was negative and her nonfocal appearance was much more suggestive of seizures and stroke, along with the fact that her last seen normal time was significantly delayed. Stat EEG was ordered and she was found to be in status epilepticus. She was emergently intubated due to her poor mental status. I was called immediately down to the bedside for the EEG demonstrating status. At the bedside, I pushed 10 mg of Versed IV 1 and started her on a Versed drip at 10 mg an hour. No information is available from the patient due to her mental status. ROS is unobtainable. The majority of the information I have is obtained from medical record, and in specifically the H&P documented by Dr. Guerra back in October 2017, which is very helpful. In reading through her chart, it appears that when she comes off her Topamax, she goes into status. It appears that she has recently come off Topamax again due to side effects. She is anaphylactically allergic to Keppra and phenytoin, so these are not available to us to use. Versed drip was used successfully in her last admission October 2017, so that is what we have chosen. I have spoken with Dr. Headley who is not only an on-call neurologist but her personal neurologist who sees her frequently, and he agrees with this plan. He also thinks that Vimpat is a good option for seizure control, which I agree with. We will plan to load her with that. 02/11/18: Remains encephalopathy on the vent. No spontaneous movement noted when Versed is held. Will get a repeat EEG today. Wean sedation only if seizure controlled 02/12: Calm now, no convulsive activity. EEG result pending. Midazolam at 10. 02/13: On continuous EEG monitoring, no seizures noted. Versed had been weaned down to 5 mg/h, propofol at 20 mcg/kg/min. Patient does not open eyes or moves spontaneously 02/14: On attempted sedation wean yesterday night patient developed 2 episodes of seizures. Currently no clinical seizures. I discussed with Dr. Headley, will start phenobarbital 90 mg IV every 8 hours. Repeat EEG today. Currently back on 50 mcg/kg/min of propofol, Versed 7 mg per hour 02/15: Remains heavily sedated, started on phenobarbital IV yesterday. Level only 2.8. Will increase dose to 120 mg every 8 hours repeat level in a.m. EEG today pending. No sedation weaning without clearance from Dr. Headley. EEG yesterday showed some left-sided phase reversal. Leukocytosis with bandemia noted, will re culture 02/16: Pt had persistent epileptiform activity on eeg 02/[address] Headley. No sedation vacation until repeat EEG shows resolution. I have updated about this at the bedside. Repeat cultures pending at this time. Check renal ultrasound as the patient had recent hydronephrosis, ureteral stent. Patient remains critically ill in severely encephalopathic due to uncontrolled seizures 02/17: remains deeply sedated for status epilepticus. phenobarb level 55.[address] Headley managing anti-epileptics: very difficult to control seizures as well as difficult medication titration given multiple anaphylactic allergies to anticonvulsants. 02/18: T-max 100. Currently 99.4. Tolerating tube feeding. No bowel movement. 4 days. Remains sedated on midazolam and propofol drips 02/19: T-max 101.6. Currently 99.6. Tolerating tube feeds. 2 problems overnight. Remains on midazolam and propofol drips and phenobarbital, valproic acid and lacosamide 02/20: Afebrile. Propofol increased to 30 mg/kg/min overnight. Suppressing seizures currently. Increasing antiepileptics per neurology. Tolerating tube feeding. Positive BM. 02/21: Afebrile. Off propofol drip. Midazolam drip at 1 mg an hour. No signs of seizure activity on the last 2 EEGs. Tolerating tube feeding. Positive BM. 02/22: Off all sedation. EEG reveals moderate to severe encephalopathy. No epileptiform activity. Blinks eyes. Withdraws to pain in all 4 extremities. 02/23: Again off all sedation. Phenobarbital decreased to 100 mg every 8 hours per neurology. Opens eyes and blinks. Does not follow commands. Quite edematous. SUBJECTIVE: 02/24: Afebrile. Currently on CPAP trial. Opens eyes and blinks. Does not follow commands. Receiving furosemide 40 mg 1 for diuresis. 02/24: T-max 100.4. Patient continues on CPAP trials 27/03.35. Patient not following commands. Patient remains off sedation since 02/22/18. Discussion regarding tracheostomy and PEG placement with family at bedside. Objective Vital Signs Date Time Temp Pulse Resp B/P (MAP) Pulse Ox O2 Delivery O2 Flow Rate FiO2 02/25/18 14:53 92 40 02/25/18 14:00 88 02/25/18 12:00 99.4 16 116/55 (75) Intake and Output 02/25/18 02/25/18 02/26/18 08:00 16:00 00:00 Intake Total 1323 ml 320 ml Output Total 1900 ml Balance -577 ml 320 ml Result Diagram: 02/25/1859902/25/18599 Imaging Last Impressions Chest X-Ray 02/25/18 06 Signed Impressions: Service Date/Time: Sunday, February 25, 2018 04:05 - CONCLUSION: 1. Bilateral lower lobe atelectasis versus pneumonia. There has been no significant change when compared to the prior exam. Inder Maria MD Renal Ultrasound 02/16/18 0000 Signed Impressions: Service Date/Time: Friday, February 16, 2018 10:17 - CONCLUSION: 1. Unremarkable renal ultrasound examination without evidence for obstructive uropathy. Adin Sanchez MD Head CT 02/10/18 1115 Signed Impressions: Service Date/Time: Saturday, February 10, 2018 12:19 - CONCLUSION: Stable negative noncontrast CT. Mustapha Grossman MD Brain MRI 02/10/18 0000 Signed Impressions: Service Date/Time: Saturday, February 10, 2018 16:30 - CONCLUSION: 1. Stable appearance with no acute hemorrhage, mass or infarction. 2. Moderate atrophic change and stable mild ventricular prominence. Mustapha Grossman MD Last Impressions Chest X-Ray 02/24/18 06 Signed Impressions: Service Date/Time: Saturday, February 24, 2018 04:03 - CONCLUSION: 1. Patchy alveolar disease characteristic of edema or pneumonia. There has been no significant change when compared to the prior exam. Bilateral effusions Inder Maria MD Renal Ultrasound 02/16/18 0000 Signed Impressions: Service Date/Time: Friday, February 16, 2018 10:17 - CONCLUSION: 1. Unremarkable renal ultrasound examination without evidence for obstructive uropathy. Adin Sanchez MD Head CT 02/10/18 1115 Signed Impressions: Service Date/Time: Saturday, February 10, 2018 12:19 - CONCLUSION: Stable negative noncontrast CT. Mustapha Grossman MD Brain MRI 02/10/18 0000 Signed Impressions: Service Date/Time: Saturday, February 10, 2018 16:30 - CONCLUSION: 1. Stable appearance with no acute hemorrhage, mass or infarction. 2. Moderate atrophic change and stable mild ventricular prominence. Mustapha Grossman MD Objective Remarks GENERAL: 67-year-old female currently orotracheally intubated HEENT: Normocephalic. Atraumatic. Pupils 2mm, equal, round, reactive, conjugate. Mucous membranes are moist and pink.. NECK: Trachea is midline. Orally intubated. CHEST: Essentially clear to auscultation bilaterally without wheezes rales rhonchi CARDIOVASCULAR: RRR. S1, S2 no strip without murmur ABDOMEN: Soft, nontender, nondistended. No guarding. MUSCULOSKELETAL: Pulses 2+. 2+ peripheral edema NEUROLOGICAL: Does not follow commands. Positive cough. Positive corneal reflex. Withdraws to pain bilateral upper extremities. Upward toes. SKIN: Bullous/clear areas bilateral upper extremities right greater than left. Date of Insertion: Feb 17, 2018 Line: PICC Side: Left Location: Antecubital A/P Assessment and Plan Neuro/Psych: Status epilepticus Elevated IOP Acute encephalopathy Off midazolam and propofol drips was 12 hours Continue valproate 500 mg IV every 4 hours. Level currently 41. Continue phenobarbital 100 mg IV every 8 hours. Level currently 35.1 Continue lacosamide 100 mg IV every 8 hours. MRI brain 02/10 revealed mild ventricular enlargement. Atrophy. EEG 02/24 Improved EEG demonstrating mild encephalopathy in sleep state. Clinical correlation. EEG 02/21 revealed moderate encephalopathy. No epileptic activity EEG 02/20 revealed moderate to severe encephalopathy. No epileptiform activity EEG brain 02/18 revealed suppressed platelets. EEG brain 02/16 revealed left frontal central spiking. -EEG 02/15/18 showed persistent seizure activity 4/4 probable phase reversal noted on left side. 4/5 persistent seizures -EEG repeat 02/12 no active seizures. -No sedation vacation until cleared by Dr. Kayode-off sedation since 02/22 -Continue ICU care, frequent neuro checks At home on valproic acid 500 mg 3 times daily with 250 mg at night Acetaminophen 650 mg every 6 hours as needed fever Continue bimatoprost 0.01% 1 drop each eye at night with appropriate hospital substitution latanoprost 0.005% 1 drop each eye at night Resp: Acute respiratory failure/hypoxic and hypercapnic ACV 15/500/5/40 PSV trial 15/5 and 40% Ventilator bundle Albuterol/ipratropium aerosols every 6 hours with albuterol aerosols every 2 hours as needed dyspnea Continue montelukast 10 mg by tube daily Spontaneous breathing trials when okay with neurology 02/25 chest x-ray in a.m. -bilateral lobe atelectasis versus pneumonia 02/25-neurosurgery consulted for tracheostomy placement CV: Hypertension Dyslipidemia Off phenylephrine drip at 10 mcg/min to maintain mean arterial pressure greater than 65 When appropriate lisinopril 20 mg p.o. daily/home medication for hypertension. Currently on 10 mg twice daily As needed hydralazine/labetalol and Nitropaste to keep systolic blood pressure less than 170 Continue aspirin 81 mg p.o. daily Hospital no substitution for ezetimibe 10 mg p.o. daily for dyslipidemia GI Hypoalbuminemia OG tube and tube feeds with vital high-protein goal 65 cc/h per nutrition's recommendations Lansoprazole for GI prophylaxis Docusate sodium/senna 1 tablet twice daily for bowel regimen Continue free water 100 mL every 6 hours Consult GI- PEG placement : Overactive bladder Recent ureteral stent for hydronephrosis -daily BMP. Sodium slowly improving currently 140 -ICU electrolyte protocol. Keep Mag>2 Renal ultrasound revealed no hydronephrosis 02/16 Currently holding oxybutynin 5 mg daily ID: -UTI with E. coli 02/10 Funguria C. difficile Will discontinue cefepime 2 g IV every 8 hours 02/18 with status epilepticus. Discontinue piperacillin/tazobactam day #5 per infectious disease on 02/22 Metronidazole 500 mg by tube 3 times daily for C. difficile Pertinent cultures No growth to date blood cultures 2 and sputum 02/19 02/18 -urine culture -C glabrata 02/15 -UA -no growth 02/15 blood cultures 2 -no growth 02/10 -UA -E. coli HEME: Leukocytosis Macrocytic anemia -Monitor CBC. Follow trend Endo Mild hyperglycemia Hypothyroidism Sliding scale insulin with NovoLog with Accu-Cheks to maintain euglycemia/low regimen every 6 hours Continue levothyroxine 75 mcg by tube daily recheck TSH was 10.4. Will increase levothyroxine to 88 mcg daily Access -Left antecubital PICC line placed 02/17/dual-lumen Prophylaxis -GI -lansoprazole -DVT -SCD/enoxaparin Level 3 follow-up. 02/25 extensive discussion with family at bedside requesting patient undergo tracheostomy and PEG placement. General surgery and gastroenterology has been consulted. Physician Gini Sahu MD Feb 25, 2018 15:21
--- NOTE | 2018-02-25 16:58 | MB ---
cc: Breezy De La Cruz MD DATE: 02/25/2018 REFERRING PHYSICIAN: Joseph Mei MD REASON FOR REFERRAL: Dysphagia, possible need for PEG tube. Thank you for the consultation. HISTORY OF PRESENT ILLNESS: A 67-year-old lady who is intubated, sedated. Apparently, patient had a stroke alert. The patient became unresponsive. She had intubated and prolonged course and now, she needs what looks like long-term intubation and possible need for trach and PEG tube for feeding purposes. The patient is sedated and unable to give any history. Most of the history was obtained from the chart. REVIEW OF SYSTEMS: Unobtainable. ALLERGIES: REVIEWED IN THE CHART, MULTIPLE MEDICATIONS. PAST MEDICAL HISTORY: Significant for hypertension, seizure activity, urinary incontinence and hyperlipidemia, neck surgery, back surgery, shoulder surgery, hysterectomy, knee surgery. MEDICATIONS: Reviewed in the chart. FAMILY HISTORY: Unobtainable. SOCIAL HISTORY: Unobtainable. PHYSICAL EXAMINATION: GENERAL: The patient lying in bed, intubated and sedated. HEENT: Pupils round, reactive. NECK: Supple. CHEST: Bilateral crackles. CARDIAC: Regular rate and rhythm. ABDOMEN: Soft, nondistended. Positive bowel sounds. EXTREMITIES: Multiple blisters and scarring. NEUROLOGIC: Unable to assess because of intubation, sedation. PSYCHOLOGICAL: Unable to assess because of intubation, sedation. LABORATORY DATA: White count 13.8, hemoglobin 7.7, platelets 407. INR 1.0. Liver function test normal. C. difficile was positive on 02/21. Chest x-ray today, bilateral lower lobe atelectasis. ASSESSMENT AND PLAN: A 67-year-old lady with a possible stroke, unresponsive, intubated, sedated, also has anemia. I was asked to evaluate her for possible percutaneous endoscopic gastrostomy tube. The patient is reasonable risk for PEG tube placement. I reviewed the chart and plan on doing this tomorrow. We will give her antibiotic during the procedure if needed and will obtain consent from her . Also, during the procedure, will evaluate for reason for anemia. The patient currently not on any blood thinner according to her nurse. MD PERRY Gomez/ANAMARIA , 04:38 PM , 04:57 PM
[2018-02-25] MEDS: BACITRACIN TOP OINT 15 GM TUBE TOPICAL SCH (21:00)
[2018-02-25] MEDS: MONTELUKAST SODIUM 10 MG TAB PO SCH (21:17)
[2018-02-25] MEDS: ACETAMINOPHEN 650 MG/20.3 ML UDC PO PRN (21:17)
[2018-02-25] MEDS: LATANOPROST 0.005% OPHT SOLN 2.5 ML BTL EACH EYE SCH (21:19)
[2018-02-26] VITALS (15 sets, daily range): BP systolic 124–166; BP diastolic 58–70; PULSE 75–90; RESP 16; TEMP 98.4–100.4; O2SAT 93–100
[2018-02-26] MEDS: PHENobarbital SOD 130 MG/ML VIAL IV SCH ×3 (01:08→17:26)
[2018-02-26] MEDS: VALPROATE INJ 500 MG in SODIUM CHLORIDE 0.9% INJ 100 ML IV SCH ×7 (01:08→23:41)
[2018-02-26] MEDS: ACETAMINOPHEN 650 MG/20.3 ML UDC PO PRN (01:21)
[2018-02-26] MEDS: CHLORHEXIDINE GLUCONATE 2 % 1 PACK (2 CLOTHS) TOP SCH (04:00)
[2018-02-26] MEDS: LACOSAMIDE INJ 100 MG in SODIUM CHLORIDE 0.9% INJ 100 ML IV SCH ×3 (04:04→20:59)
[2018-02-26] MEDS: LEVOTHYROXINE SODIUM 88 MCG TAB PO SCH (04:04)
[2018-02-26] MEDS: metroNIDAZOLE 500 MG TAB PO SCH ×3 (04:05→21:56)
[2018-02-26] MEDS: ARTIFICIAL TEARS OPTH SOLN 15 ML BTL EACH EYE SCH ×3 (04:05→21:57)
--- NOTE | 2018-02-26 05:05 | RADRPT ---
EXAM DATE/TIME: 02/26/2018 04:14 [facility] COMPARISON: CHEST SINGLE AP, February 25, 2018, 4:05. INDICATIONS : Shortness of breath, possible pulmonary disease. MEDICAL HISTORY : Arthritis. Hypertension Seizures SURGICAL HISTORY : Hysterectomy. section. ENCOUNTER: Subsequent ACUITY: 2 weeks PAIN SCORE: Non-responsive. LOCATION: Bilateral chest FINDINGS: Mild bibasilar consolidation not significantly changed. There are small, bilateral pleural effusions. No pneumothorax. Heart size stable, but limits of normal. Endotracheal tube tip is approximately 3 cm above the alfreda. Nasogastric tube courses into the stoma ch. There is a left subclavian central venous catheter tip in the superior vena cava. CONCLUSION: No significant change. Bautista Wynne MD on February 26, 2018 at 5:03 Board Certified Radiologist. This report was verified electronically.
[2018-02-26] MEDS ORDERED: SODIUM CHLORID 0.9% 500 ML IV PRN (06:00)
[2018-02-26] MEDS ORDERED: POVIDONE IODINE 5% (ANTISEPSIS KIT) 4 APPLICATIONS EACH NARE PRN (06:00)
[2018-02-26] MEDS: INSULIN NovoLIN REGULAR SUPPLEMENTAL SCALE SQ SCH ×5 (06:00→23:41)
[2018-02-26] MEDS ORDERED: CHLORHEXIDINE GLUCONATE 2 % 1 PACK (2 CLOTHS) TOPICAL PRN (06:00)
[2018-02-26] MEDS ORDERED: LACTATED RINGER'S 1000 ML IV PRN (06:00)
[2018-02-26 07:13] LABS: AUTOMATED NEUTROPHIL # 8.7 TH/MM3 (1.8-7.7); BASOPHIL # 0.1 TH/MM3 (0-0.2); BASOPHIL % 0.7 % (0.0-2.0); EOSINOPHIL # 0.3 TH/MM3 (0-0.4); EOSINOPHIL % 1.9 % (0.0-4.0); HEMATOCRIT 22.9 % (35.0-46.0); HEMOGLOBIN 7.5 GM/DL (11.6-15.3); LYMPH % 27.6 % (9.0-44.0); MEAN CELL VOLUME 101.4 FL (80.0-100.0); MEAN CORPUSCULAR HEMOGLOBIN 33.4 PG (27.0-34.0); MEAN CORPUSCULAR HGB CONC 32.9 % (32.0-36.0); MONO % 9.9 % (0.0-8.0); MONOCYTE # 1.4 TH/MM3 (0-0.9); NEUT % 59.9 % (16.0-70.0); PLATELET COUNT 408 TH/MM3 (150-450); RED BLOOD COUNT 2.26 MIL/MM3 (4.00-5.30); RED CELL DISTRIBUTION WIDTH 16.5 % (11.6-17.2); WHITE BLOOD COUNT 14.5 TH/MM3 (4.0-11.0)
[2018-02-26 07:36] LABS: BICARBONATE 28.2 MEQ/L (21.0-32.0); CALCIUM 8.3 MG/DL (8.5-10.1); CREATININE 0.44 MG/DL (0.50-1.00)
[2018-02-26 08:05] LABS: PROTHROMBIN TIME - PATIENT 10.3 SEC (9.8-11.6)
[2018-02-26 08:24] LABS: BANDS 17 % (0-6); LYMPHOCYTES 21 % (9-44); MONOCYTES 9 % (0-8); MYELOCYTES 2 % (0-0); NEUTROPHIL # MANUAL DIFF 9.9 TH/MM3 (1.8-7.7); POLYS (SEG NEUTROPHILS) 49 % (16-70)
[2018-02-26] MEDS ORDERED: MIDAZOLAM HCL 2 MG/2 ML VIAL IV PUSH ONE (08:30)
[2018-02-26] MEDS ORDERED: ROCURONIUM INJ 100 MG/10 ML VIAL IV ONE (08:30)
[2018-02-26] MEDS ORDERED: MIDAZOLAM HCL 5 MG/ML VIAL (1 ML) ONE (08:40)
[2018-02-26] MEDS: DOCUSATE SODIUM 50 MG/SENNA 8.6 MG TAB PO SCH ×2 (09:00→21:56)
--- NOTE | 2018-02-26 09:03 | HHI.PR ---
Review/Management Diagnosis status epilepticus--resolved now off of versed and propofol Plan continue current doses of vpa and phenobarbital as levels this am are stable Diagnosis/Plan: Subjective Subjective Comments No acute events reported EEG on 02/24 improved with no epileptiform activity Active Medications Current Medications Medications (Trade) Dose Ordered Sig/Tiera Route Start Time Stop Time Status Last Admin (NS Flush) 2 ml UNSCH PRN IV FLUSH 02/10/18 11:15 Potassium Chloride 100 ml @ 25 mls/hr Q2H PRN IV 02/10/18 13:15 Potassium Chloride 100 ml @ 50 mls/hr Q2H PRN IV 02/10/18 13:15 (K-Lyte Cl Eff) 50 meq UNSCH PRN PO 02/10/18 13:15 02/12/18 09:38 Potassium Chloride 100 ml @ 25 mls/hr UNSCH PRN IV 02/10/18 13:15 Potassium Chloride 100 ml @ 50 mls/hr Q2H PRN IV 02/10/18 13:15 Magnesium Sulfate 4 gm/Sodium Chloride 100 ml @ 50 mls/hr UNSCH PRN IV 02/10/18 13:15 (Mag-Ox) 800 mg UNSCH PRN PO 02/10/18 13:15 Magnesium Sulfate 2 gm/Sodium Chloride 100 ml @ 50 mls/hr UNSCH PRN IV 02/10/18 13:15 (K-Phos) 2,000 mg Q4H PRN PO 02/10/18 13:15 Sodium Phosphate 30 mmol/Sodium Chloride 250 ml @ 42 mls/hr UNSCH PRN IV 02/10/18 13:15 (K-Phos) 2,000 mg UNSCH PRN PO/TUBE 02/10/18 13:15 Potassium Phosphate 30 mmol/ Sodium Chloride 260 ml @ 42 mls/hr UNSCH PRN IV 02/10/18 13:15 (Peridex 0.12% Liq) 15 ml BID@08,20 MT 02/10/18 20:00 02/25/18 20:00 (D50w (Vial) Inj) 25 ml UNSCH PRN IV PUSH 02/10/18 13:15 (NovoLIN R SUPPLEMENTAL SCALE) 1 Q6HR SQ 02/10/18 18:00 02/25/18 00:00 (Zofran Inj) 4 mg Q6H PRN IV PUSH 02/10/18 13:15 Miscellaneous Information 1 Q361D XX 02/10/18 13:15 02/10/18 13:15 (Chlorhexidine 2% Cloth) Taper DAILY@04 TOP 02/11/18 04:00 02/07/19 03:59 02/19/18 04:20 (Chlorhexidine 2% Cloth) 3 pack UNSCH PRN TOP 02/10/18 13:15 (Anahi-Colace) 1 tab BID PO 02/10/18 21:00 02/25/18 21:17 (Milk Of Magnesia Liq) 30 ml Q12H PRN PO 02/10/18 13:15 (Senokot) 17.2 mg Q12H PRN PO 02/10/18 13:15 (Dulcolax Supp) 10 mg DAILY PRN RECTAL 02/10/18 13:15 (Lactulose Liq) 30 ml DAILY PRN PO 02/10/18 13:15 Midazolam HCl 100 ml @ 2 mls/hr TITRATE PRN IV 02/10/18 14:15 Future Hold 02/20/18 08:30 (Ativan Inj) 2 mg Q1H PRN IV PUSH 02/11/18 15:00 02/14/18 01:48 Propofol 100 ml @ 2.535 mls/ hr TITRATE PRN IV 02/11/18 15:00 02/21/18 01:55 Lacosamide 100 mg/ Sodium Chloride 110 ml @ 110 mls/hr Q8H IV 02/15/18 12:00 02/26/18 04:04 (NS Flush) See Protocol DAILY IV FLUSH 02/18/18 09:00 02/25/18 08:24 (NS Flush) See Protocol UNSCH PRN IV FLUSH 02/17/18 17:45 (Heparin Central Flush) See Protocol DAILY IV FLUSH 02/18/18 09:00 02/25/18 08:24 (Heparin Central Flush) See Protocol UNSCH PRN IV FLUSH 02/17/18 17:45 02/23/18 15:11 (NS Flush) UNSCH PRN IV FLUSH 02/17/18 17:45 02/23/18 15:11 (Tylenol 650 Mg/ 20 ml Liq) 650 mg Q6H PRN PO 4/8/18 09:30 02/26/18 01:21 (Tears Naturale Opth Soln) 1 drop Q8HR EACH EYE 02/18/18 14:00 02/26/18 04:05 (Albuterol Neb) 2.5 mg Q2HR NEB PRN NEB 02/18/18 09:30 02/19/18 00:33 (Trandate Inj) 10 mg Q1H PRN IV PUSH 02/18/18 09:30 02/24/18 04:52 (Prevacid Odt) 30 mg DAILY NG 02/19/18 09:00 02/25/18 08:23 (Singulair) 10 mg HS PO 02/18/18 21:00 02/25/18 21:17 (Xalatan 0.005% Opth Soln) 1 drop HS EACH EYE 02/18/18 21:00 02/25/18 21:19 (Nitroglycerin 2% Oint) 2 inch Q6HR PRN TOPICAL 02/18/18 13:15 (Apresoline Inj) 10 mg Q1HR PRN IV PUSH 02/18/18 13:15 02/23/18 21:36 (Brethine Inj) 1 mg UNSCH PRN SQ 02/18/18 18:45 (Synthroid) 88 mcg DAILY@0600 PO 02/20/18 06:00 02/26/18 04:04 Valproate Sodium 500 mg/Sodium Chloride 105 ml @ 105 mls/hr Q4HR IV 02/19/18 20:00 02/26/18 04:04 (Baciguent Oint) 1 applic Q12HR TOPICAL 02/21/18 21:00 02/25/18 21:00 (Flagyl) 500 mg Q8HR PO 02/22/18 14:00 02/26/18 04:05 (Luminal Inj) 100 mg Q8H IV 02/24/18 02:00 02/26/18 01:08 (Prinivil) 10 mg BID PO 02/24/18 21:00 02/25/18 21:23 Lactated Ringer's 1,000 ml @ 30 mls/hr Q24H PRN IV 02/26/18 06:00 03/01/18 05:59 Sodium Chloride 500 ml @ 30 mls/hr [id number] PRN IV 02/26/18 06:00 03/01/18 05:59 (Betadine 5% Antisepsis Kit) 1 applic [employer] PRN EACH NARE 02/26/18 06:00 03/01/18 05:59 (Chlorhexidine 2% Cloth) 3 pack [employer] PRN TOPICAL 02/26/18 06:00 03/01/18 05:59 (Zemuron Inj) 50 mg BOLUS ONCE IV 02/26/18 08:30 02/26/18 08:31 UNV (Versed Inj) 2 mg ONCE ONCE IV PUSH 02/26/18 08:30 02/26/18 08:31 UNV Allergies Allergies Coded Allergies fluconazole (Unverified Allergy, Severe, 02/10/18) hydromorphone (Unverified Allergy, Severe, 02/10/18) levetiracetam (Unverified Allergy, Severe, Anaphylaxis, 02/10/18) rifampin (Unverified Allergy, Severe, 02/10/18) phenytoin (Unverified Allergy, Mild, Rash, 02/10/18) Exam I&O / VS Vital Signs Date Time Temp Pulse Resp B/P (MAP) Pulse Ox O2 Delivery O2 Flow Rate FiO2 02/26/18 06:00 80 02/26/18 04:07 94 40 02/26/18 04:00 80 02/26/18 04:00 35 02/26/18 04:00 99.2 77 16 134/60 (84) 94 02/26/18 02:00 87 02/26/18 00:23 94 40 02/26/18 00:00 89 02/26/18 00:00 35 02/26/18 00:00 100.4 90 16 124/58 (80) 93 02/25/18 22:00 92 02/25/18 21:04 93 40 02/25/18 20:00 100.3 96 13 136/64 (88) 93 02/25/18 20:00 96 02/25/18 20:00 35 02/25/18 16:00 100 02/25/18 16:00 99.4 16 15 129/58 (81) 98 02/25/18 16:00 35 02/25/18 14:53 92 40 02/25/18 14:00 88 02/25/18 12:00 88 02/25/18 12:00 35 02/25/18 12:00 99.4 16 16 116/55 (75) 97 02/25/18 11:22 92 35 02/25/18 10:00 88 Exam Comments opens eyes to voice No tonic clonic activity PERRL, EOM intact to dolls maneuver No focal deficit Objective Micro and Labs Laboratory Tests Test 02/26/18 06:39 White Blood Count 14.5 Red Blood Count 2.26 Hemoglobin 7.5 Hematocrit 22.9 Mean Corpuscular Volume 101.4 Mean Corpuscular Hemoglobin 33.4 Mean Corpuscular Hemoglobin Concent 32.9 Red Cell Distribution Width 16.5 Platelet Count 408 Mean Platelet Volume 8.0 Neutrophils (%) (Auto) 59.9 Lymphocytes (%) (Auto) 27.6 Monocytes (%) (Auto) 9.9 Eosinophils (%) (Auto) 1.9 Basophils (%) (Auto) 0.7 Neutrophils # (Auto) 8.7 Lymphocytes # (Auto) 4.0 Monocytes # (Auto) 1.4 Eosinophils # (Auto) 0.3 Basophils # (Auto) 0.1 CBC Comment AUTO DIFF Differential Total Cells Counted 100 Neutrophils % (Manual) 49 Band Neutrophils % 17 Lymphocytes % 21 Monocytes % 9 Eosinophils % 2 Neutrophils # (Manual) 9.9 Myelocytes 2 Differential Comment AUTO DIFF CONFIRMED Platelet Estimate NORMAL Platelet Morphology Comment NORMAL Prothrombin Time 10.3 Prothromb Time International Ratio 1.0 Blood Urea Nitrogen 25 Creatinine 0.44 Random Glucose 83 Calcium Level 8.3 Sodium Level 146 Potassium Level 4.1 Chloride Level 112 Carbon Dioxide Level 28.2 Anion Gap 6 Estimat Glomerular Filtration Rate 142 Valproic Acid (Depakene) Level 52 Phenobarbital Level 36.6 Date/Time Source Procedure Growth Status 02/19/18 15:13 Blood Line Aerobic Blood Culture - Final NO GROWTH IN 5 DAYS Complete 02/19/18 15:13 Blood Line Anaerobic Blood Culture - Final NO GROWTH IN 5 DAYS Complete 02/19/18 21:30 Sputum Endotracheal Gram Stain - Final Complete 02/19/18 21:30 Sputum Endotracheal Sputum Culture - Final HEAVY GROWTH NORMAL RESPIRATORY EZEKIEL Complete 02/18/18 14:00 Urine Catheterized Urine Urine Culture - Final Kathy Glabrata Complete Loy Headley MD PhD Feb 26, 2018 09:03
--- NOTE | 2018-02-26 09:12 | MB ---
cc: Andre Melgar MD DATE: 02/25/2018 REASON FOR CONSULTATION: Ventilator dependence, acute respiratory failure, need for tracheostomy. HISTORY OF PRESENT ILLNESS: The patient is a 67-year-old female who has history of seizure disorder and presented on 02/10/2018 with altered mental status. She was found to be in status epilepticus and altered mental status. She was also noted to be febrile at that time. She is noted to have a UTI, currently on antibiotic treatment. She had an EEG confirming her seizure activity. She has been continuing to be somewhat unresponsive and remains in an intubated state with a prolonged ventilator dependence. Therefore, Surgery was consulted for tracheostomy placement. Further history obtained via the chart as the patient is intubated state and unable to obtain. PAST MEDICAL HISTORY: Hypertension, hyperlipidemia, seizure disorder, incontinence, back surgery, hysterectomy, knee surgery. PAST SURGICAL HISTORY: As above. ALLERGIES: FLUCONAZOLE, PHENYTOIN, RIFAMPIN, LEVETIRACETAM, HYDROMORPHONE. MEDICATIONS: See EMR. SOCIAL HISTORY: Unable to obtain. FAMILY HISTORY: Unable to obtain. REVIEW OF SYSTEMS: Unable to obtain due to intubated state. PHYSICAL EXAMINATION: GENERAL: The patient is on a ventilator. CPAP, unresponsive. VITAL SIGNS: Temperature 99.4, pulse 100, respirations 16, blood pressure 129/58, saturation 98% on 35 FiO2. HEENT: Pupils equal, round and reactive. NECK: Supple. Trachea midline. LUNGS: Bilateral expansion, coarse. HEART: S1, S2. Regular. ABDOMEN: Soft, nontender, nondistended. EXTREMITIES: Multiple abrasions with fluid-filled ulcerations and blistering. EXTREMITIES: Warm and perfused. NEUROLOGIC: Intubated, unable to do full exam. PSYCHIATRIC: Unable to obtain. INTEGUMENT: Blistering as above. LABORATORY AND DIAGNOSTIC DATA: WBC 13.8, hemoglobin 7.7, hematocrit 22.9, platelets 407. Sodium 145, potassium 3.8, chloride 109, BUN 24, creatinine 0.4. INR 1. Chest x-ray, bilateral lower atelectasis versus pneumonia. No significant change. ASSESSMENT: The patient is a 67-year-old female, acute respiratory failure, in need of a tracheostomy. PLAN: After full workup, the patient with the above main issues. The patient currently is unable to wean from ventilator, ventilator dependent. Therefore, decision for tracheostomy placement. Discussed with for a consultation and consent, agrees with the plan and would like to proceed. The patient is having a PEG tube placed as well. We will try to coordinate with Dr. Pedro with IOC and GI and PEG tube placement for possible tracheostomy placement tomorrow. Discussed with staff and again . MD BIRGIT Macias/MARCIA , 08:46 PM , 09:42 PM
--- NOTE | 2018-02-26 09:50 | PD.OP ---
cc: Ned Marrero MD Operative Report Date of Surgery: Feb 26, 2018 Preoperative Diagnosis: (1) Acute respiratory failure (2) Aspiration into airway (3) Status epilepticus Postoperative Diagnosis: (1) Seizure (2) Altered mental status (3) Acute respiratory failure Procedure: Percutaneous tracheostomy Anesthesia: Dr. Pedro Surgeon: Ned Marrero Carbide Grinder(s): See procedure records Operation and Findings: DATE OF PROCEDURE February 26, 2018 PREOP DIAGNOSIS: ventilator dependence POSTOP DIAGNOSIS: ventilator dependence PROCEDURE; Percutaneous Tracheostomy with bronchoscopic assistance. #8 Shiley tracheostomy tube ANESTHESIA: IV sedation BRONCHOSCOPY done by Dr. Pedro ATTENDING SURGEON: Ned Marrero M.D. DETAILS of PROCEDURE: Patient was in the intensive care unit on the ventilator. 524 Patient was identified. Routine time out was performed. Neck was prepped with Betadine that was in the tracheostomy kit. Trachea was identified in the midline 2 fingerbreadths above the sternal notch. Area was anesthetized with the lidocaine supply within the tracheostomy Kit. 5mm horizontal incision is made. Angiocath was placed into the trachea. After air return, a wire was threaded through the Angiocath. This was done under videoscopic surveillance by bronchoscopy. The blue rhino punch was then used to dilate up the tracheal track. Blue Rhino was then placed over the guidewire to dilate up the tracheal tract. The #8 Shiley tracheostomy was then placed over the Blue Rhino into the trachea. The Blue Rhino and the guidewire were removed. The tracheostomy was secured in place with the suture supply within the tracheostomy kit. Bronchoscopic evaluation showed the tracheostomy tube in good position with minimal bleeding. Sutured and dressing applied The patient was placed the on the ventilator in preprocedure state. Ned Lowe M.D., FACS., MD Feb 26, 2018 09:50
[2018-02-26] MEDS: SODIUM CHLORIDE 0.9% FLUSH 10 ML FLUSH IV FLUSH SCH (10:14)
[2018-02-26] MEDS: LISINOPRIL 10 MG TAB PO SCH ×2 (10:15→21:56)
--- NOTE | 2018-02-26 10:15 | RADRPT ---
EXAM DATE/TIME: 02/26/2018 10:46 [facility] COMPARISON: CHEST SINGLE AP, February 26, 2018, 4:14. INDICATIONS : Status post tracheostomy and bronchoscopy. MEDICAL HISTORY : Arthritis. Hypertension Seizures SURGICAL HISTORY : Hysterectomy. section. ENCOUNTER: Initial ACUITY: 1 day PAIN SCORE: Non-responsive. LOCATION: Bilateral chest FINDINGS: Interval placement of a tracheostomy with tip at the level the clavicles. Stable left-sided PICC line in place. Redemonstration of hazy bilateral lower lung zone opacities without significant pneumothor ax. Cardiomediastinal contours are stable. Remainder of the exam is unchanged. CONCLUSION: 1. Tracheostomy good position. No pneumothorax. 2. Persistent bilateral lower lung zone airspace disease and associated pleural effusions. Adin Sanchez MD on February 26, 2018 at 10:11 Board Certified Radiologist. This report was verified electronically.
--- NOTE | 2018-02-26 10:15 | PD.PROCEDR ---
Procedure Note Procedure Procedure: Fiberoptic Bronchoscopy Diagnosis: Failure to wean from ventilator Indications: Percutaneous tracheostomy placement Consent: Obtained from Mr. Márquez Anesthesia: see [facility] Description of the Procedure: The patient was sedated and mechanically ventilated. The patient was placed on 100% FIO2 and a volume control mode of ventilation. The fiberoptic bronchoscopy was inserted via 8.0 ETT. The trachea, right and left mainstem bronchi, and sub-segmental bronchi were evaluated. The endobronchial anatomy was normal. Findings: Normal anatomy BAL samples: 1 The patient tolerated the procedure well with no hemodynamic instability or hypoxia. There were no immediate complications noted. At the conclusion of the procedure, the patient was placed back on their pre-procedure ventilatory settings. There was minimal EBL. A chest x-ray has been ordered. I personally performed the procedure. Gini Pedro MD Feb 26, 2018 10:15
--- NOTE | 2018-02-26 10:27 | HHI.CCPN ---
Subjective Remarks/Hospital Course This is a 67-year-old female with a history of poorly controlled seizures who presents with acute altered mental status. She was last seen normal at 3 AM this morning. Initially she was considered to be a stroke alert, however CT noncontrasted brain was negative and her nonfocal appearance was much more suggestive of seizures and stroke, along with the fact that her last seen normal time was significantly delayed. Stat EEG was ordered and she was found to be in status epilepticus. She was emergently intubated due to her poor mental status. I was called immediately down to the bedside for the EEG demonstrating status. At the bedside, I pushed 10 mg of Versed IV 1 and started her on a Versed drip at 10 mg an hour. No information is available from the patient due to her mental status. ROS is unobtainable. The majority of the information I have is obtained from medical record, and in specifically the H&P documented by Dr. Guerra back in October 2017, which is very helpful. In reading through her chart, it appears that when she comes off her Topamax, she goes into status. It appears that she has recently come off Topamax again due to side effects. She is anaphylactically allergic to Keppra and phenytoin, so these are not available to us to use. Versed drip was used successfully in her last admission October 2017, so that is what we have chosen. I have spoken with Dr. Headley who is not only an on-call neurologist but her personal neurologist who sees her frequently, and he agrees with this plan. He also thinks that Vimpat is a good option for seizure control, which I agree with. We will plan to load her with that. 02/11/18: Remains encephalopathy on the vent. No spontaneous movement noted when Versed is held. Will get a repeat EEG today. Wean sedation only if seizure controlled 02/12: Calm now, no convulsive activity. EEG result pending. Midazolam at 10. 02/13: On continuous EEG monitoring, no seizures noted. Versed had been weaned down to 5 mg/h, propofol at 20 mcg/kg/min. Patient does not open eyes or moves spontaneously 02/14: On attempted sedation wean yesterday night patient developed 2 episodes of seizures. Currently no clinical seizures. I discussed with Dr. Headley, will start phenobarbital 90 mg IV every 8 hours. Repeat EEG today. Currently back on 50 mcg/kg/min of propofol, Versed 7 mg per hour 02/15: Remains heavily sedated, started on phenobarbital IV yesterday. Level only 2.8. Will increase dose to 120 mg every 8 hours repeat level in a.m. EEG today pending. No sedation weaning without clearance from Dr. Headley. EEG yesterday showed some left-sided phase reversal. Leukocytosis with bandemia noted, will re culture 02/16: Pt had persistent epileptiform activity on eeg 02/[address] Headley. No sedation vacation until repeat EEG shows resolution. I have updated about this at the bedside. Repeat cultures pending at this time. Check renal ultrasound as the patient had recent hydronephrosis, ureteral stent. Patient remains critically ill in severely encephalopathic due to uncontrolled seizures 02/17: remains deeply sedated for status epilepticus. phenobarb level 55.[address] Headley managing anti-epileptics: very difficult to control seizures as well as difficult medication titration given multiple anaphylactic allergies to anticonvulsants. 02/18: T-max 100. Currently 99.4. Tolerating tube feeding. No bowel movement. 4 days. Remains sedated on midazolam and propofol drips 02/19: T-max 101.6. Currently 99.6. Tolerating tube feeds. 2 problems overnight. Remains on midazolam and propofol drips and phenobarbital, valproic acid and lacosamide 02/20: Afebrile. Propofol increased to 30 mg/kg/min overnight. Suppressing seizures currently. Increasing antiepileptics per neurology. Tolerating tube feeding. Positive BM. 02/21: Afebrile. Off propofol drip. Midazolam drip at 1 mg an hour. No signs of seizure activity on the last 2 EEGs. Tolerating tube feeding. Positive BM. 02/22: Off all sedation. EEG reveals moderate to severe encephalopathy. No epileptiform activity. Blinks eyes. Withdraws to pain in all 4 extremities. 02/23: Again off all sedation. Phenobarbital decreased to 100 mg every 8 hours per neurology. Opens eyes and blinks. Does not follow commands. Quite edematous. SUBJECTIVE: 02/24: Afebrile. Currently on CPAP trial. Opens eyes and blinks. Does not follow commands. Receiving furosemide 40 mg 1 for diuresis. 02/25: T-max 100.4. Patient continues on CPAP trials 27/03.35. Patient not following commands. Patient remains off sedation since 02/22/18. Discussion regarding tracheostomy and PEG placement with family at bedside. 02/26: Patient experienced low-grade temperature last night. Patient tolerated CPAP trials greater than 12 hours yesterday. Plan for tracheostomy and PEG placement today. Noted slight increase in WBC count. Bronchoscopy BAL sputum culture sent post tracheostomy. Phenobarbital and valproic acid levels therapeutic. Objective Vital Signs Date Time Temp Pulse Resp B/P (MAP) Pulse Ox O2 Delivery O2 Flow Rate FiO2 02/26/18 09:00 96 60 02/26/18 06:00 80 02/26/18 04:00 99.2 16 134/60 (84) Intake and Output 02/26/18 02/26/18 02/27/18 08:00 16:00 00:00 Intake Total 954 ml Output Total 2100 ml Balance -1146 ml Result Diagram: 02/26/18 0639 02/26/18 0639 Imaging Last Impressions Chest X-Ray 02/25/18 0600 Signed Impressions: Service Date/Time: Sunday, February 25, 2018 04:05 - CONCLUSION: 1. Bilateral lower lobe atelectasis versus pneumonia. There has been no significant change when compared to the prior exam. Inder Maria MD Renal Ultrasound 02/16/18 0000 Signed Impressions: Service Date/Time: Friday, February 16, 2018 10:17 - CONCLUSION: 1. Unremarkable renal ultrasound examination without evidence for obstructive uropathy. Adin Sanchez MD Head CT 02/10/18 1115 Signed Impressions: Service Date/Time: Saturday, February 10, 2018 12:19 - CONCLUSION: Stable negative noncontrast CT. Mustapha Grossman MD Brain MRI 02/10/18 0000 Signed Impressions: Service Date/Time: Saturday, February 10, 2018 16:30 - CONCLUSION: 1. Stable appearance with no acute hemorrhage, mass or infarction. 2. Moderate atrophic change and stable mild ventricular prominence. Mustapha Grossman MD Last Impressions Chest X-Ray 02/24/18 0600 Signed Impressions: Service Date/Time: Saturday, February 24, 2018 04:03 - CONCLUSION: 1. Patchy alveolar disease characteristic of edema or pneumonia. There has been no significant change when compared to the prior exam. Bilateral effusions Inder Maria MD Renal Ultrasound 02/16/18 0000 Signed Impressions: Service Date/Time: Friday, February 16, 2018 10:17 - CONCLUSION: 1. Unremarkable renal ultrasound examination without evidence for obstructive uropathy. Adin Sanchez MD Head CT 02/10/18 1115 Signed Impressions: Service Date/Time: Saturday, February 10, 2018 12:19 - CONCLUSION: Stable negative noncontrast CT. Mustapha Grossman MD Brain MRI 02/10/18 0000 Signed Impressions: Service Date/Time: Saturday, February 10, 2018 16:30 - CONCLUSION: 1. Stable appearance with no acute hemorrhage, mass or infarction. 2. Moderate atrophic change and stable mild ventricular prominence. Mustapha Grossman MD Objective Remarks GENERAL: 67-year-old female with anasarca S/P tracheostomy HEENT: Normocephalic. Atraumatic. Pupils 2mm, equal, round, reactive, conjugate. Mucous membranes are moist and pink.. NECK: Trachea is midline. 8.0 Shiley tracheostomy CHEST: Essentially clear to auscultation bilaterally. Equal chest rise CARDIOVASCULAR: RRR. S1, S2 no strip without murmur ABDOMEN: Soft, nontender, nondistended. No guarding. MUSCULOSKELETAL: Pulses 2+. 2+ peripheral edema NEUROLOGICAL: Does not follow commands. Positive cough. Positive corneal reflex. Withdraws to pain bilateral upper extremities. Upward toes. SKIN: Bullous/clear areas bilateral upper extremities right greater than left. Urinary Catheter: Yes Ardon insert reason: Measure Accurate Output Date of Insertion: Feb 25, 2018 Date of Insertion: Feb 17, 2018 Line: PICC Side: Left Location: Antecubital A/P Assessment and Plan Neuro/Psych: Status epilepticus Elevated IOP Acute encephalopathy Continue valproate 500 mg IV every 4 hours. Level currently 41. Continue phenobarbital 100 mg IV every 8 hours. Level currently 35.1 Continue lacosamide 100 mg IV every 8 hours. MRI brain 02/10 revealed mild ventricular enlargement. Atrophy. EEG 02/24 Improved EEG demonstrating mild encephalopathy in sleep state. Clinical correlation. EEG 02/21 revealed moderate encephalopathy. No epileptic activity EEG 02/20 revealed moderate to severe encephalopathy. No epileptiform activity EEG brain 02/18 revealed suppressed platelets. EEG brain 02/16 revealed left frontal central spiking. -EEG 02/15/18 showed persistent seizure activity 02/14 probable phase reversal noted on left side. 02/15 persistent seizures -EEG repeat 02/12 no active seizures. -No sedation vacation until cleared by Dr. Headley-off sedation since 02/22 -Continue ICU care, frequent neuro checks At home on valproic acid 500 mg 3 times daily with 250 mg at night Acetaminophen 650 mg every 6 hours as needed fever Continue bimatoprost 0.01% 1 drop each eye at night with appropriate hospital substitution latanoprost 0.005% 1 drop each eye at night Folic acid and phenobarbital levels-therapeutic limits Resp: Acute respiratory failure/hypoxic and hypercapnic ACV 15/500/5/40 PSV trial 27/03 and 40% Ventilator bundle Albuterol/ipratropium aerosols every 6 hours with albuterol aerosols every 2 hours as needed dyspnea Continue montelukast 10 mg by tube daily Spontaneous breathing trials asa tolerated 02/25 chest x-ray in a.m. -bilateral lobe atelectasis versus pneumonia 02/25-neurosurgery consulted for tracheostomy placement CV: Hypertension Dyslipidemia Maintain mean arterial pressure greater than 65 When appropriate lisinopril 20 mg p.o. daily/home medication for hypertension. Currently on 10 mg twice daily As needed hydralazine/labetalol and Nitropaste to keep systolic blood pressure less than 170 Continue aspirin 81 mg p.o. daily Hospital no substitution for ezetimibe 10 mg p.o. daily for dyslipidemia GI Hypoalbuminemia OG tube and tube feeds with vital high-protein goal 65 cc/h per nutrition's recommendations Lansoprazole for GI prophylaxis Docusate sodium/senna 1 tablet twice daily for bowel regimen Continue free water 100 mL every 6 hours Consult GI- PEG placement scheduled for today : Overactive bladder Recent ureteral stent for hydronephrosis -daily BMP. Sodium slowly improving currently 140 -ICU electrolyte protocol. Keep Mag>2 Renal ultrasound revealed no hydronephrosis 02/16 Currently holding oxybutynin 5 mg daily ID: -UTI with E. coli 02/10 Funguria C. difficile Persistent leukocytosis Will discontinue cefepime 2 g IV every 8 hours 02/18 with status epilepticus. Discontinue piperacillin/tazobactam day #5 per infectious disease on 02/22 Metronidazole 500 mg by tube 3 times daily for C. difficile ID following-Dr. Rolle Pertinent cultures No growth to date blood cultures 2 and sputum 02/19 02/18 -urine culture -C glabrata 02/15 -UA -no growth 02/15 blood cultures 2 -no growth 02/10 -UA -E. coli HEME: Leukocytosis Macrocytic anemia -Monitor CBC. Follow trend Endo Mild hyperglycemia Hypothyroidism Sliding scale insulin with NovoLog with Accu-Cheks to maintain euglycemia/low regimen every 6 hours Continue levothyroxine 75 mcg by tube daily recheck TSH was 10.4. Will increase levothyroxine to 88 mcg daily Access -Left antecubital PICC line placed 02/17/dual-lumen Prophylaxis -GI -lansoprazole -DVT -SCD/enoxaparin Level 3 follow-up. 02/26: Tracheostomy performed this a.m. uneventful. Mr. Márquez is now at bedside provided medical update all questions answered PEG placement pending for today. Physician Gini Sahu MD Feb 26, 2018 10:27
[2018-02-26] MEDS: LANSOPRAZOLE SOLUTAB 30 MG TAB NG SCH (10:29)
[2018-02-26] MEDS: CHLORHEXIDINE 0.12% (ORAL KIT) 15 ML CUP MT SCH ×2 (10:31→20:59)
[2018-02-26] MEDS: BACITRACIN TOP OINT 15 GM TUBE TOPICAL SCH ×2 (10:31→21:56)
[2018-02-26] MEDS: hydrALAZINE HCL 20 MG/ML VIAL IV PUSH PRN ×2 (11:35→18:48)
[2018-02-26] MEDS ORDERED: ePHEDrine/NS 25 MG/5 ML SYRINGE IV ONE (12:00)
[2018-02-26] MEDS ORDERED: PHENYLEPH/NS 1000 MCG/10 ML SYR IV ONE (12:00)
[2018-02-26] MEDS ORDERED: PROPOFOL 200 MG/20 ML AMP IV ONE (12:00)
--- NOTE | 2018-02-26 15:41 | GIPROC ---
[facility] [address] [facility]. [facility], [id number] EGD WITH PEG PROCEDURE REPORT EXAM DATE: 02/26/2018 PATIENT NAME: Lena Márquez MR#: [id number] BIRTHDATE: 1950 ATTENDING: Bárbara Leblanc MD ORDER #: [id number] FUR TINTER: Eric Barney and Maris Liu STATUS: inpatient INDICATIONS: The patient is a 67 yr old female here for an EGD with PEG due to dysphagia , ventilator dependent PROCEDURE PERFORMED: EGD with PEG placement EGD with biopsy MEDICATIONS: Per Anesthesia and None. TOPICAL ANESTHETIC: none CONSENT: The patient understands the risks and benefits of the procedure and understands that these risks include, but are not limited to: sedation, allergic reaction, infection, perforation and/or bleeding. Alternative means of evaluation and treatment include, among others: physical exam, x-rays, and/or surgical intervention. The patient elects to proceed with this endoscopic procedure. medical equipment was checked for proper function. Hand hygiene and appropriate measures for infection prevention was taken. After the risks, benefits and alternatives of the procedure were thoroughly explained, Informed consent was verified, confirmed and timeout was successfully executed by the treatment team. The patient was anesthetized with topical anesthesia and the Pentax [id number] endoscope was introduced through the mouth and advanced to the second portion of the duodenum. The instrument was slowly withdrawn as the mucosa was fully examined. Mild gastritis was found in antrum. The stomach was then inflated with air, and by a combination of transillumination and manual palpation, the site for the gastrostomy tube placement was selected and marked on the anterior abdominal wall. The skin of the anterior abdomen was surgically prepped and draped with sterile towels. Utilizing strict sterile technique, the selected site was then anesthetized with 1% xylocaine by injection into the skin and subcutaneous tissue. A 1 cm incision was made through the skin and subcutaneous tissue, and the needle/cannula assembly was then passed through the abdominal wall and through the anterior wall of the stomach, maintaining visualization with the endoscope. A snare device previously placed through the instrument channel was then opened and placed around the cannula, the needle was removed, and the insertion wire was passed through the cannula and into the stomach lumen. The snare was then loosened from the cannula, and repositioned to snare the insertion wire. The snare was then pulled up to the endoscope distal tip, and the scope was then withdrawn bringing with it the snare and insertion wire. The insertion wire was then released from the snare, and then loop-attached to the gastrostomy tube. Using the "pull technique", the G-tube was then pulled into place by traction on the insertion wire at the abdominal wall end. The G-tube insertion site was then cleansed once again, and the external bolster was placed over the tube to secure it to the abdominal wall. A sterile dressing was then applied, and the procedure terminated. a hiatal hernia The gastroscope was then slowly withdrawn and removed. ADVERSE EVENT: There were no complications. IMPRESSIONS: 1. Mild gastritis was found in antrum-biopsy 2. A hiatal hernia 3.s/p peg placement, placement of internal bumper documented endoscopically RECOMMENDATIONS: 1. Anti-reflux regimen 2. Continue PPI 3. abdominal binder 4.start tf in am 5. ok to use peg for medications only today REPEAT EXAM: Return 3 month(s) EGD Bárbara Leblanc MD eSigned: Bárbara Leblanc MD 02/26/2018 3:41 PM cc: PATIENT NAME: Lena Márquez MR#: [id number]
--- NOTE | 2018-02-26 16:55 | HHI.IDPN ---
Note Infectious Disease Note Patient is on the ventilator. Post tracheostomy. Had low-grade fever yesterday evening. Afebrile. Sedated. No new seizure activity noted. Stool C. difficile toxin PCR is positive. Urine culture as Kathy glabrata. Presented to the emergency department on 02/10/2018 with acute altered mental status. She was found to be with status epilepticus. In the emergency department, the temperature phyllis to 103 degrees on the evening of admission. She was intubated and EEG has been repeatedly performed and shows that she is continuing to have seizure activity. The patient continues to have fever with temperature spike of 102 early today. She received IV antibiotic treatment for urinary tract infection due to Escherichia coli, which was cultured on admission urine culture. PAST MEDICAL HISTORY: Hypertension, hyperlipidemia, seizure disorder, urinary incontinence, history of back surgery, history of shoulder surgery, hysterectomy, history of knee surgery. ALLERGIES: FLUCONAZOLE, PHENYTOIN, RIFAMPIN, LEVETIRACETAM, HYDROMORPHONE. MEDICATIONS: Current Medications Medications (Trade) Dose Ordered Sig/Tiera Route PRN Reason Start Time Stop Time Status Last Admin Dose Admin Sodium Chloride (NS Flush) 2 ml UNSCH PRN IV FLUSH FLUSH AFTER USING IV ACCESS 02/10/18 11:15 Potassium Chloride 100 ml @ 25 mls/hr Q2H PRN IV For Potassium 2.8 - 3.2 mEq/L 02/10/18 13:15 Potassium Chloride 100 ml @ 50 mls/hr Q2H PRN IV For Potassium 2.8 - 3.2 mEq/L 02/10/18 13:15 Potassium Bicarb/ Potassium Chloride (K-Lyte Cl Eff) 50 meq UNSCH PRN PO For Potassium 3.3 - 3.5 mEq/L 02/10/18 13:15 02/12/18 09:38 Potassium Chloride 100 ml @ 25 mls/hr UNSCH PRN IV For Potassium 3.3 - 3.5 mEq/L 02/10/18 13:15 Potassium Chloride 100 ml @ 50 mls/hr Q2H PRN IV For Potassium 3.3 - 3.5 mEq/L 02/10/18 13:15 Magnesium Sulfate 4 gm/Sodium Chloride 100 ml @ 50 mls/hr UNSCH PRN IV For Magnesium 0.9 - 1.1 mg/dL 02/10/18 13:15 Magnesium Oxide (Mag-Ox) 800 mg UNSCH PRN PO For Magnesium 1.2 - 1.6 mg/dL 02/10/18 13:15 Magnesium Sulfate 2 gm/Sodium Chloride 100 ml @ 50 mls/hr UNSCH PRN IV For Magnesium 1.2 - 1.6 mg/dL 02/10/18 13:15 Potassium Phosphate (K-Phos) 2,000 mg Q4H PRN PO For Phosphorus < 2.5 mg/dL 02/10/18 13:15 Sodium Phosphate 30 mmol/Sodium Chloride 250 ml @ 42 mls/hr UNSCH PRN IV For Phosphorus < 2.5 mg/dL 02/10/18 13:15 Potassium Phosphate (K-Phos) 2,000 mg UNSCH PRN PO/TUBE SEE LABEL COMMENTS 02/10/18 13:15 Potassium Phosphate 30 mmol/ Sodium Chloride 260 ml @ 42 mls/hr UNSCH PRN IV SEE LABEL COMMENTS 02/10/18 13:15 Chlorhexidine Gluconate (Peridex 0.12% Liq) 15 ml BID@08,20 MT 02/10/18 20:00 02/26/18 10:31 Dextrose (D50w (Vial) Inj) 25 ml UNSCH PRN IV PUSH HYPOGLYCEMIA-SEE COMMENTS 02/10/18 13:15 Insulin Human Regular (NovoLIN R SUPPLEMENTAL SCALE) 1 Q6HR SQ 02/10/18 18:00 02/25/18 00:00 Ondansetron HCl (Zofran Inj) 4 mg Q6H PRN IV PUSH NAUSEA OR VOMITING 02/10/18 13:15 Miscellaneous Information 1 Q361D XX 02/10/18 13:15 02/10/18 13:15 Chlorhexidine Gluconate (Chlorhexidine 2% Cloth) Taper DAILY@04 TOP 02/11/18 04:00 02/07/19 03:59 02/19/18 04:20 Chlorhexidine Gluconate (Chlorhexidine 2% Cloth) 3 pack UNSCH PRN TOP HYGIENIC CARE 02/10/18 13:15 Senna/Docusate Sodium (Anahi-Colace) 1 tab BID PO 02/10/18 21:00 02/25/18 21:17 Magnesium Hydroxide (Milk Of Magnesia Liq) 30 ml Q12H PRN PO Mild constipation 02/10/18 13:15 Sennosides (Senokot) 17.2 mg Q12H PRN PO Moderate constipation 02/10/18 13:15 Bisacodyl (Dulcolax Supp) 10 mg DAILY PRN RECTAL SEVERE CONSITIPATION 02/10/18 13:15 Lactulose (Lactulose Liq) 30 ml DAILY PRN PO SEVERE CONSITIPATION 02/10/18 13:15 Midazolam HCl 100 ml @ 2 mls/hr TITRATE PRN IV SEDATION 02/10/18 14:15 Future Hold 02/20/18 08:30 Lorazepam (Ativan Inj) 2 mg Q1H PRN IV PUSH seizures 02/11/18 15:00 02/14/18 01:48 Propofol 100 ml @ 2.535 mls/ hr TITRATE PRN IV SEDATION 02/11/18 15:00 02/21/18 01:55 Lacosamide 100 mg/ Sodium Chloride 110 ml @ 110 mls/hr Q8H IV 02/15/18 12:00 02/26/18 10:31 Sodium Chloride (NS Flush) See Protocol DAILY IV FLUSH 02/18/18 09:00 02/26/18 10:14 Sodium Chloride (NS Flush) See Protocol UNSCH PRN IV FLUSH SEE PROTOCOL TABLE 02/17/18 17:45 Heparin Sodium (Porcine) (Heparin Central Flush) See Protocol DAILY IV FLUSH 02/18/18 09:00 02/26/18 10:30 Heparin Sodium (Porcine) (Heparin Central Flush) See Protocol UNSCH PRN IV FLUSH SEE PROTOCOL TABLE 02/17/18 17:45 02/23/18 15:11 Sodium Chloride (NS Flush) UNSCH PRN IV FLUSH SEE PROTOCOL TABLE 02/17/18 17:45 02/23/18 15:11 Acetaminophen (Tylenol 650 Mg/ 20 ml Liq) 650 mg Q6H PRN PO fever 02/18/18 09:30 02/26/18 01:21 Artificial Tears (Tears Naturale Opth Soln) 1 drop Q8HR EACH EYE 02/18/18 14:00 02/26/18 14:00 Albuterol Sulfate (Albuterol Neb) 2.5 mg Q2HR NEB PRN NEB dyspnea 02/18/18 09:30 02/19/18 00:33 Labetalol HCl (Trandate Inj) 10 mg Q1H PRN IV PUSH SBP>170, DBP>90 02/18/18 09:30 02/24/18 04:52 Lansoprazole (Prevacid Odt) 30 mg DAILY NG 02/19/18 09:00 02/26/18 10:29 Montelukast Sodium (Singulair) 10 mg HS PO 02/18/18 21:00 02/25/18 21:17 Latanoprost (Xalatan 0.005% Opth Soln) 1 drop HS EACH EYE 02/18/18 21:00 02/25/18 21:19 Nitroglycerin (Nitroglycerin 2% Oint) 2 inch Q6HR PRN TOPICAL SBP>160, DBP>90 02/18/18 13:15 Hydralazine HCl (Apresoline Inj) 10 mg Q1HR PRN IV PUSH SBP>160, DBP>90 02/18/18 13:15 02/26/18 11:35 Terbutaline Sulfate (Brethine Inj) 1 mg UNSCH PRN SQ For Extravasation 02/18/18 18:45 Levothyroxine Sodium (Synthroid) 88 mcg DAILY@0600 PO 02/20/18 06:00 02/26/18 04:04 Valproate Sodium 500 mg/Sodium Chloride 105 ml @ 105 mls/hr Q4HR IV 02/19/18 20:00 02/26/18 16:05 Bacitracin (Baciguent Oint) 1 applic Q12HR TOPICAL 02/21/18 21:00 02/26/18 10:31 Metronidazole (Flagyl) 500 mg Q8HR PO 02/22/18 14:00 02/26/18 16:06 Phenobarbital Sodium (Luminal Inj) 100 mg Q8H IV 02/24/18 02:00 02/26/18 10:15 Lisinopril (Prinivil) 10 mg BID PO 02/24/18 21:00 02/26/18 10:15 Lactated Ringer's 1,000 ml @ 30 mls/hr Q24H PRN IV SEE LABEL COMMENTS 02/26/18 06:00 03/01/18 05:59 Sodium Chloride 500 ml @ 30 mls/hr [id number] PRN IV SEE LABEL COMMENTS 02/26/18 06:00 03/01/18 05:59 Povidone Iodine (Betadine 5% Antisepsis Kit) 1 applic HEAVY DUTY CUSTODIAN PRN EACH NARE SEE LABEL COMMENTS 02/26/18 06:00 03/01/18 05:59 Chlorhexidine Gluconate (Chlorhexidine 2% Cloth) 3 pack HEAVY DUTY CUSTODIAN PRN TOPICAL SEE LABEL COMMENTS 02/26/18 06:00 03/01/18 05:59 Objective: Vital Signs Date Time Temp Pulse Resp B/P (MAP) Pulse Ox O2 Delivery O2 Flow Rate FiO2 02/26/18 16:45 100 45 02/26/18 13:11 98 50 02/26/18 09:00 96 60 02/26/18 09:00 100 100 02/26/18 06:00 80 02/26/18 04:07 94 40 02/26/18 04:00 80 02/26/18 04:00 35 02/26/18 04:00 99.2 77 16 134/60 (84) 94 02/26/18 02:00 87 02/26/18 00:23 94 40 02/26/18 00:00 89 02/26/18 00:00 35 02/26/18 00:00 100.4 90 16 124/58 (80) 93 02/25/18 22:00 92 02/25/18 21:04 93 40 02/25/18 20:00 100.3 96 13 136/64 (88) 93 02/25/18 20:00 96 02/25/18 20:00 35 Laboratory Tests Test 02/25/18 06:00 02/26/18 06:39 White Blood Count 13.8 TH/MM3 14.5 TH/MM3 Red Blood Count 2.27 MIL/MM3 2.26 MIL/MM3 Hemoglobin 7.7 GM/DL 7.5 GM/DL Hematocrit 22.9 % 22.9 % Mean Corpuscular Volume 101.1 FL 101.4 FL Mean Corpuscular Hemoglobin 34.1 PG 33.4 PG Mean Corpuscular Hemoglobin Concent 33.7 % 32.9 % Red Cell Distribution Width 16.2 % 16.5 % Platelet Count 407 TH/MM3 408 TH/MM3 Mean Platelet Volume 8.5 FL 8.0 FL Neutrophils (%) (Auto) 66.2 % 59.9 % Lymphocytes (%) (Auto) 23.6 % 27.6 % Monocytes (%) (Auto) 7.4 % 9.9 % Eosinophils (%) (Auto) 2.0 % 1.9 % Basophils (%) (Auto) 0.8 % 0.7 % Neutrophils # (Auto) 9.1 TH/MM3 8.7 TH/MM3 Lymphocytes # (Auto) 3.3 TH/MM3 4.0 TH/MM3 Monocytes # (Auto) 1.0 TH/MM3 1.4 TH/MM3 Eosinophils # (Auto) 0.3 TH/MM3 0.3 TH/MM3 Basophils # (Auto) 0.1 TH/MM3 0.1 TH/MM3 CBC Comment AUTO DIFF AUTO DIFF Differential Total Cells Counted 100 100 Neutrophils % (Manual) 60 % 49 % Band Neutrophils % 5 % 17 % Lymphocytes % 22 % 21 % Monocytes % 5 % 9 % Eosinophils % 1 % 2 % Neutrophils # (Manual) 9.9 TH/MM3 9.9 TH/MM3 Metamyelocytes 3 % Myelocytes 4 % 2 % Nucleated Red Blood Cells 1 /100 WBC Differential Comment FINAL DIFF MANUAL AUTO DIFF CONFIRMED Platelet Estimate HIGH NORMAL Platelet Morphology Comment NORMAL NORMAL Laboratory Tests Test 02/25/18 06:00 02/26/18 06:39 Blood Urea Nitrogen 24 MG/DL 25 MG/DL Creatinine 0.40 MG/DL 0.44 MG/DL Random Glucose 129 MG/DL 83 MG/DL Total Protein 5.8 GM/DL Albumin 1.4 GM/DL Calcium Level 8.7 MG/DL 8.3 MG/DL Phosphorus Level 3.1 MG/DL Magnesium Level 2.0 MG/DL Alkaline Phosphatase 71 U/L Aspartate Amino Transf (AST/SGOT) 23 U/L Alanine Aminotransferase (ALT/SGPT) 11 U/L Total Bilirubin 0.2 MG/DL Sodium Level 145 MEQ/L 146 MEQ/L Potassium Level 3.8 MEQ/L 4.1 MEQ/L Chloride Level 109 MEQ/L 112 MEQ/L Carbon Dioxide Level 29.2 MEQ/L 28.2 MEQ/L Anion Gap 7 MEQ/L 6 MEQ/L Estimat Glomerular Filtration Rate 159 ML/MIN 142 ML/MIN Microbiology Date/Time Source Procedure Growth Status 02/26/18 09:30 Bronchial Washings Bronchial Acid Fast Stain Pending Received 02/26/18 09:30 Bronchial Washings Bronchial Mycobacterial Culture Pending Received 02/26/18 09:30 Bronchial Washings Bronchial Fungal Smear - Final NO FUNGAL ELEMENTS SEEN. Resulted 02/26/18 09:30 Bronchial Washings Bronchial Fungal Culture Pending Resulted 02/26/18 09:30 Bronchial Washings Bronchial Gram Stain - Final Resulted 02/26/18 09:30 Bronchial Washings Bronchial Bronchial Culture Pending Resulted Imaging: Chest X-Ray 02/26/18 0600 Signed Impressions: Service Date/Time: Monday, February 26, 2018 04:14 - CONCLUSION: No significant change. Bautista Wynne MD Chest X-Ray 02/26/18 0000 Signed Impressions: Service Date/Time: Monday, February 26, 2018 10:46 - CONCLUSION: 1. Tracheostomy good position. No pneumothorax. 2. Persistent bilateral lower lung zone airspace disease and associated pleural effusions. Adin Sanchez MD Chest X-Ray 02/25/18 0600 Signed Impressions: Service Date/Time: Sunday, February 25, 2018 04:05 - CONCLUSION: 1. Bilateral lower lobe atelectasis versus pneumonia. There has been no significant change when compared to the prior exam. Inder Maria MD Chest X-Ray 02/24/18 0600 Signed Impressions: Service Date/Time: Saturday, February 24, 2018 04:03 - CONCLUSION: 1. Patchy alveolar disease characteristic of edema or pneumonia. There has been no significant change when compared to the prior exam. Bilateral effusions Inder Maria MD Chest X-Ray 02/21/18 0600 Signed Impressions: Service Date/Time: Wednesday, February 21, 2018 03:25 - CONCLUSION: Bibasilar densities and probable pleural effusions. Kashif Forrest MD Chest X-Ray 02/20/18 0600 Signed Impressions: Service Date/Time: Tuesday, February 20, 2018 02:58 - CONCLUSION: Stable exam with bibasilar densities and probable pleural effusions. Kashif Forrest MD Renal Ultrasound 02/16/18 0000 Signed Impressions: Service Date/Time: Friday, February 16, 2018 10:17 - CONCLUSION: 1. Unremarkable renal ultrasound examination without evidence for obstructive uropathy. Adin Sanchez MD Head CT 02/10/18 1115 Signed Impressions: Service Date/Time: Saturday, February 10, 2018 12:19 - CONCLUSION: Stable negative noncontrast CT. Mustapha Grossman MD Brain MRI 02/10/18 0000 Signed Impressions: Service Date/Time: Saturday, February 10, 2018 16:30 - CONCLUSION: 1. Stable appearance with no acute hemorrhage, mass or infarction. 2. Moderate atrophic change and stable mild ventricular prominence. Mustapha Grossman MD PHYSICAL EXAMINATION: GENERAL: Patient is sedated. No acute distress. HEENT: Unable to fully assess. The patient cannot cooperate. No icterus. NECK: Supple, no adenopathy. LUNGS: Diminished breath sounds. HEART: Regular S1 and S2, without audible murmurs, rubs or gallops. ABDOMEN: Obese, soft, positive bowel sounds. EXTREMITIES: Diffuse edema with clear fluid filled blisters on the arms. SKIN: No diffuse rash. NEUROLOGIC: Unable to assess. PSYCHIATRIC: Unable to assess. IMPRESSION: 1. Fever in patient with status epilepticus. Temperature improved. Now has low-grade. 2. Urinary tract infection due to Kathy. The urine culture can be repeated if the white blood cell count increases. 3. C. difficile colitis. It may be contributing to the elevated white blood cell count. 4. Acute respiratory failure. Probable pneumonia. Sputum culture has normal beka. Chest x-ray without acute infiltrate. 5. Probable sepsis. Blood cultures no growth. RECOMMENDATIONS: 1. Continue to treat the C. difficile with metronidazole. 2. Add Diflucan because of the low-grade fever and white blood cell count remaining elevated. 3. Monitor white blood cell count. 4. Monitor clinical status. Discussed with at bedside. Irving Rolle MD Feb 26, 2018 16:54
[2018-02-26] MEDS ORDERED: FLUCONAZOLE 100 MG TAB PO SCH (17:00)
[2018-02-26] MEDS ORDERED: DO NOT ADM ANY ANTICOAGULANT DRUGS PRN (18:15)
[2018-02-26] MEDS: MONTELUKAST SODIUM 10 MG TAB PO SCH (21:56)
[2018-02-26] MEDS: LATANOPROST 0.005% OPHT SOLN 2.5 ML BTL EACH EYE SCH (21:56)
[2018-02-26] MEDS: MICAFUNGIN 100 MG/NS 100 ML IV SCH ×2 (23:41)
[2018-02-27] VITALS (25 sets, daily range): BP systolic 151–180; BP diastolic 67–83; PULSE 66–80; RESP 16–31; TEMP 98–99.1; O2SAT 94–100
[2018-02-27] MEDS ORDERED: DEXTROSE 5% IN WATE 1000ML INJ 1,000 ML IV SCH (01:15)
[2018-02-27] MEDS: PHENobarbital SOD 130 MG/ML VIAL IV SCH ×3 (01:20→18:06)
[2018-02-27] MEDS: LACOSAMIDE INJ 100 MG in SODIUM CHLORIDE 0.9% INJ 100 ML IV SCH ×4 (03:50→21:08)
[2018-02-27] MEDS: VALPROATE INJ 500 MG in SODIUM CHLORIDE 0.9% INJ 100 ML IV SCH ×5 (03:50→21:08)
[2018-02-27] MEDS: CHLORHEXIDINE GLUCONATE 2 % 1 PACK (2 CLOTHS) TOP SCH (03:51)
[2018-02-27 05:38] LABS: AUTOMATED NEUTROPHIL # 6.6 TH/MM3 (1.8-7.7); BASOPHIL # 0.1 TH/MM3 (0-0.2); BASOPHIL % 0.6 % (0.0-2.0); EOSINOPHIL # 0.1 TH/MM3 (0-0.4); EOSINOPHIL % 0.9 % (0.0-4.0); LYMPH % 22.9 % (9.0-44.0); LYMPHOCYTE # 2.3 TH/MM3 (1.0-4.8); MEAN CELL VOLUME 101.9 FL (80.0-100.0); MEAN CORPUSCULAR HEMOGLOBIN 34.2 PG (27.0-34.0); MEAN CORPUSCULAR HGB CONC 33.5 % (32.0-36.0); MEAN PLATELET VOLUME 7.9 FL (7.0-11.0); MONO % 8.5 % (0.0-8.0); MONOCYTE # 0.8 TH/MM3 (0-0.9); NEUT % 67.1 % (16.0-70.0); PLATELET COUNT 329 TH/MM3 (150-450); RED BLOOD COUNT 1.93 MIL/MM3 (4.00-5.30); RED CELL DISTRIBUTION WIDTH 16.2 % (11.6-17.2); WHITE BLOOD COUNT 9.9 TH/MM3 (4.0-11.0)
[2018-02-27 05:44] LABS: HEMATOCRIT 19.6 % (35.0-46.0); HEMOGLOBIN 6.6 GM/DL (11.6-15.3)
--- NOTE | 2018-02-27 05:59 | RADRPT ---
EXAM DATE/TIME: 02/27/2018 04:51 [facility] COMPARISON: CHEST SINGLE AP, February 26, 2018, 10:46. INDICATIONS : Short of breath. MEDICAL HISTORY : Arthritis. Hypertension Seizures SURGICAL HISTORY : Hysterectomy. section. ENCOUNTER: Subsequent ACUITY: 1 week PAIN SCORE: 0/10 LOCATION: Bilateral chest FINDINGS: Mild bibasilar consolidation and very small effusions not significantly changed. No pneumothorax seen . Heart size stable, upper limits of normal. Tracheostomy tube again noted. There is a left arm PICC with tip in the superior vena cava. Patient h as had previous thoracic spine surgery with posterior fusion hardware. CONCLUSION: No significant change. Bautista Wynne MD on February 27, 2018 at 5:57 Board Certified Radiologist. This report was verified electronically.
[2018-02-27] MEDS: INSULIN NovoLIN REGULAR SUPPLEMENTAL SCALE SQ SCH ×3 (06:00→18:00)
[2018-02-27 06:20] LABS: BICARBONATE 20.8 MEQ/L (21.0-32.0); CALCIUM 6.6 MG/DL (8.5-10.1); CREATININE 0.26 MG/DL (0.50-1.00); MAGNESIUM 1.7 MG/DL (1.5-2.5); PHOSPHORUS 2.7 MG/DL (2.5-4.9)
[2018-02-27 06:37] LABS: CALCIUM-PROTEIN CORRECTED 7.6 MG/DL (8.5-10.1); TOTAL PROTEIN 5.1 GM/DL (6.4-8.2)
[2018-02-27] MEDS: ARTIFICIAL TEARS OPTH SOLN 15 ML BTL EACH EYE SCH ×3 (06:50→21:21)
[2018-02-27] MEDS: metroNIDAZOLE 500 MG TAB PO SCH ×3 (06:50→21:20)
[2018-02-27] MEDS: LEVOTHYROXINE SODIUM 88 MCG TAB PO SCH (06:50)
[2018-02-27 07:47] LABS: MEAN CELL VOLUME 110.1 FL (80.0-100.0); MEAN CORPUSCULAR HEMOGLOBIN 34.1 PG (27.0-34.0); MEAN PLATELET VOLUME 8.4 FL (7.0-11.0); PLATELET COUNT 336 TH/MM3 (150-450); RED BLOOD COUNT 1.98 MIL/MM3 (4.00-5.30); WHITE BLOOD COUNT 9.7 TH/MM3 (4.0-11.0)
[2018-02-27 07:55] LABS: HEMATOCRIT 21.8 % (35.0-46.0); HEMOGLOBIN 6.8 GM/DL (11.6-15.3)
[2018-02-27] MEDS: CHLORHEXIDINE 0.12% (ORAL KIT) 15 ML CUP MT SCH ×2 (08:00→21:08)
[2018-02-27] MEDS: POTASSIUM CHLOR 20 MEQ PREMIX 100 ML IV PRN ×4 (08:20→21:38)
[2018-02-27] MEDS: LABETALOL HCL 100 MG/20 ML VIAL IV PUSH PRN ×3 (08:21→16:31)
[2018-02-27] MEDS: LANSOPRAZOLE SOLUTAB 30 MG TAB NG SCH (08:23)
[2018-02-27] MEDS: DOCUSATE SODIUM 50 MG/SENNA 8.6 MG TAB PO SCH ×2 (08:23→21:20)
[2018-02-27] MEDS: LISINOPRIL 10 MG TAB PO SCH ×2 (08:23→21:20)
[2018-02-27] MEDS: BACITRACIN TOP OINT 15 GM TUBE TOPICAL SCH ×2 (08:25→21:21)
[2018-02-27] MEDS: SODIUM CHLORIDE 0.9% FLUSH 10 ML FLUSH IV FLUSH SCH (08:25)
--- NOTE | 2018-02-27 11:42 | HHI.GIFU ---
Subjective Remarks Pt remains on sedation and mechanically ventilated via trach PEG clamped, site with scant amount of dried blood Covered with clean and dry gauze (Mya Castro) Objective Vitals I&O Vital Signs Date Time Temp Pulse Resp B/P (MAP) Pulse Ox O2 Delivery O2 Flow Rate FiO2 02/27/18 11:10 99.1 72 19 157/70 100 02/27/18 10:40 100 45 02/27/18 10:00 71 02/27/18 08:13 100 45 02/27/18 08:13 45 02/27/18 08:00 69 02/27/18 08:00 45 02/27/18 08:00 99.0 76 16 157/72 (100) 100 02/27/18 06:00 77 02/27/18 04:10 99 45 02/27/18 04:00 98.9 80 16 180/73 (108) 100 02/27/18 04:00 80 02/27/18 04:00 45 02/27/18 02:00 79 02/27/18 00:25 100 45 02/27/18 00:00 45 02/27/18 00:00 98.7 80 16 154/67 (96) 100 02/27/18 00:00 80 02/26/18 22:00 82 02/26/18 20:49 96 55 02/26/18 20:00 45 02/26/18 20:00 87 02/26/18 20:00 98.4 87 16 142/60 (87) 99 02/26/18 16:45 100 45 02/26/18 16:00 45 02/26/18 16:00 99.3 78 16 166/70 (102) 98 02/26/18 13:11 98 50 02/26/18 12:00 35 02/26/18 12:00 99.0 88 16 152/67 (95) 100 I/O 02/26/18 02/26/18 02/26/18 02/27/18 02/27/18 02/27/18 07:00 15:00 23:00 07:00 15:00 23:00 Intake Total 954 ml 320 ml 370 ml 205 ml 30 ml Output Total 2100 ml 1250 ml 1050 ml Balance -1146 ml 320 ml -880 ml -845 ml 30 ml IV Total 320 ml 320 ml 205 ml Tube Feeding 754 ml Blood Product IV Normal Saline Flush 30 ml Other 200 ml 50 ml Output Urine Total 2000 ml 1150 ml 1000 ml Stool Total 100 ml 100 ml 50 ml Laboratory Laboratory Tests Test 02/27/18 05:00 02/27/18 06:45 White Blood Count 9.9 9.7 Red Blood Count 1.93 1.98 Hemoglobin 6.6 6.8 Hematocrit 19.6 21.8 Mean Corpuscular Volume 101.9 110.1 Mean Corpuscular Hemoglobin 34.2 34.1 Mean Corpuscular Hemoglobin Concent 33.5 31.0 Red Cell Distribution Width 16.2 18.0 Platelet Count 329 336 Mean Platelet Volume 7.9 8.4 Neutrophils (%) (Auto) 67.1 Lymphocytes (%) (Auto) 22.9 Monocytes (%) (Auto) 8.5 Eosinophils (%) (Auto) 0.9 Basophils (%) (Auto) 0.6 Neutrophils # (Auto) 6.6 Lymphocytes # (Auto) 2.3 Monocytes # (Auto) 0.8 Eosinophils # (Auto) 0.1 Basophils # (Auto) 0.1 CBC Comment DIFF FINAL Differential Comment Blood Urea Nitrogen 16 Creatinine 0.26 Random Glucose 75 Total Protein 5.1 Calcium Level 6.6 Phosphorus Level 2.7 Magnesium Level 1.7 Sodium Level 148 Potassium Level 3.0 Chloride Level 119 Carbon Dioxide Level 20.8 Anion Gap 8 Estimat Glomerular Filtration Rate 261 Protein Corrected Calcium 7.6 Date/Time Source Procedure Growth Status 02/19/18 15:13 Blood Line Aerobic Blood Culture - Final NO GROWTH IN 5 DAYS Complete 02/19/18 15:13 Blood Line Anaerobic Blood Culture - Final NO GROWTH IN 5 DAYS Complete 02/26/18 09:30 Bronchial Washings Bronchial Acid Fast Stain Pending Received 02/26/18 09:30 Bronchial Washings Bronchial Mycobacterial Culture Pending Received 02/18/18 14:00 Urine Catheterized Urine Urine Culture - Final Kathy Glabrata Complete Imaging Last Impressions Chest X-Ray 02/27/18 0600 Signed Impressions: Service Date/Time: Tuesday, February 27, 2018 04:51 - CONCLUSION: No significant change. Bautista Wynne MD Renal Ultrasound 02/16/18 0000 Signed Impressions: Service Date/Time: Friday, February 16, 2018 10:17 - CONCLUSION: 1. Unremarkable renal ultrasound examination without evidence for obstructive uropathy. Adin Sanchez MD Head CT 02/10/18 1115 Signed Impressions: Service Date/Time: Saturday, February 10, 2018 12:19 - CONCLUSION: Stable negative noncontrast CT. Mustapha Grossman MD Brain MRI 02/10/18 0000 Signed Impressions: Service Date/Time: Saturday, February 10, 2018 16:30 - CONCLUSION: 1. Stable appearance with no acute hemorrhage, mass or infarction. 2. Moderate atrophic change and stable mild ventricular prominence. Mustapha Grossman MD Physical Exam HEENT: Normocephalic; atraumatic CHEST: Respiration synchronized with vent ABDOMEN: Soft, nondistended, bowel sounds active. PEG clamped, site with scant amount of dried blood SKIN: Pale STUDENT SERVICES VICE PRESIDENT: Sedated (Mya Castro) Assessment and Plan Plan Assessment: - S/P EGD with PEG placement --> Mild gastritis in the antrum. A hiatal hernia. Nutrition recommendations: Vital High Protein @ 65 mL/hr x 22 hrs- hold TF an hour before and an hour after Synthroid - C. diff positive- Flexiseal with liquid stool. On Flagyl - Anemia noted- Drop in H/H noted- no obvious source of bleeding - S/P trach yesterday Plan: TF per nutrition- Vital High Protein @ 65 mL/hr x 22 hrs Flush PEG q 6 hrs and after feedings GI will sign off, please reconsult as needed Pt has been seen and examined by myself and Dr. Leblanc and this note is written on her behalf (Mya Castro) Mya Castro Feb 27, 2018 11:42 Bárbara Leblanc MD Feb 27, 2018 20:38
--- NOTE | 2018-02-27 13:57 | HHI.PR ---
cc: Ned Marrero MD Subjective Subjective Notes DAILY PROGRESS NOTE FOR SURGICAL ATTENDING, DR. NED MARRERO On MV via trach Family at bedside Objective Vitals/I&O Vital Signs Date Time Temp Pulse Resp B/P (MAP) Pulse Ox O2 Delivery O2 Flow Rate FiO2 02/27/18 12:50 99 45 02/27/18 12:00 69 02/27/18 12:00 98.7 21 155/83 (107) Labs Laboratory Tests Test 02/27/18 05:00 02/27/18 06:45 White Blood Count 9.9 9.7 Red Blood Count 1.93 1.98 Hemoglobin 6.6 6.8 Hematocrit 19.6 21.8 Mean Corpuscular Volume 101.9 110.1 Mean Corpuscular Hemoglobin 34.2 34.1 Mean Corpuscular Hemoglobin Concent 33.5 31.0 Red Cell Distribution Width 16.2 18.0 Platelet Count 329 336 Mean Platelet Volume 7.9 8.4 Neutrophils (%) (Auto) 67.1 Lymphocytes (%) (Auto) 22.9 Monocytes (%) (Auto) 8.5 Eosinophils (%) (Auto) 0.9 Basophils (%) (Auto) 0.6 Neutrophils # (Auto) 6.6 Lymphocytes # (Auto) 2.3 Monocytes # (Auto) 0.8 Eosinophils # (Auto) 0.1 Basophils # (Auto) 0.1 CBC Comment DIFF FINAL Differential Comment Blood Urea Nitrogen 16 Creatinine 0.26 Random Glucose 75 Total Protein 5.1 Calcium Level 6.6 Phosphorus Level 2.7 Magnesium Level 1.7 Sodium Level 148 Potassium Level 3.0 Chloride Level 119 Carbon Dioxide Level 20.8 Anion Gap 8 Estimat Glomerular Filtration Rate 261 Protein Corrected Calcium 7.6 Date/Time Source Procedure Growth Status 02/19/18 15:13 Blood Line Aerobic Blood Culture - Final NO GROWTH IN 5 DAYS Complete 02/19/18 15:13 Blood Line Anaerobic Blood Culture - Final NO GROWTH IN 5 DAYS Complete 02/26/18 09:30 Bronchial Washings Bronchial Acid Fast Stain Pending Received 02/26/18 09:30 Bronchial Washings Bronchial Mycobacterial Culture Pending Received 02/18/18 14:00 Urine Catheterized Urine Urine Culture - Final Kathy Glabrata Complete Radiology Last Impressions Chest X-Ray 02/27/18 0600 Signed Impressions: Service Date/Time: Tuesday, February 27, 2018 04:51 - CONCLUSION: No significant change. Bautista Wynne MD Renal Ultrasound 02/16/18 0000 Signed Impressions: Service Date/Time: Friday, February 16, 2018 10:17 - CONCLUSION: 1. Unremarkable renal ultrasound examination without evidence for obstructive uropathy. Adin Sanchez MD Head CT 02/10/18 1115 Signed Impressions: Service Date/Time: Saturday, February 10, 2018 12:19 - CONCLUSION: Stable negative noncontrast CT. Mustapha Grossman MD Brain MRI 02/10/18 0000 Signed Impressions: Service Date/Time: Saturday, February 10, 2018 16:30 - CONCLUSION: 1. Stable appearance with no acute hemorrhage, mass or infarction. 2. Moderate atrophic change and stable mild ventricular prominence. Mustapha Grossman MD Cardiovascular: Regular Lungs: Clear, Other (trach) Abdomen: Other (PEG in place ) Extremities: No edema A/P Assessment and Plan 67 year old female with multiple medical problems; VDRF; POD1 trach placement -No issues with trach overnight -Continue routine trach care -Vent per CCM; on CPAP -General Surgery will sign off; Please call with any questions Attending Statement NOTE FOR SURGICAL ATTENDING, DR. NED MARRERO I agree with above assessment and plan. I reviewed and agree with the findings presented. The following services were provided during this hospital visit: Chart data review, vital sign assessments/reviewing monitor data Review of consultations notes if present. Medication orders/review and/or management Ordering and/or reviewing lab tests Ordering and/or interpreting/reviewing x-rays and/or diagnostic studies Care of the patient and discussion of the patient with the care team Documentation time To help prompt me to consider important information that might be impacting today's encounter and assessment, Information from prior notes written by myself or my colleagues may have been "brought forward/copy and pasted" into today's note. Lynsye Brandt/[employer] Shift Manager DINKEY PRESS OPERATOR Feb 27, 2018 13:57 Ned Marrero MD Feb 27, 2018 16:08
--- NOTE | 2018-02-27 16:40 | HHI.CCPN ---
Subjective Remarks/Hospital Course This is a 67-year-old female with a history of poorly controlled seizures who presents with acute altered mental status. She was last seen normal at 3 AM this morning. Initially she was considered to be a stroke alert, however CT noncontrasted brain was negative and her nonfocal appearance was much more suggestive of seizures and stroke, along with the fact that her last seen normal time was significantly delayed. Stat EEG was ordered and she was found to be in status epilepticus. She was emergently intubated due to her poor mental status. I was called immediately down to the bedside for the EEG demonstrating status. At the bedside, I pushed 10 mg of Versed IV 1 and started her on a Versed drip at 10 mg an hour. No information is available from the patient due to her mental status. ROS is unobtainable. The majority of the information I have is obtained from medical record, and in specifically the H&P documented by Dr. Guerra back in October 2017, which is very helpful. In reading through her chart, it appears that when she comes off her Topamax, she goes into status. It appears that she has recently come off Topamax again due to side effects. She is anaphylactically allergic to Keppra and phenytoin, so these are not available to us to use. Versed drip was used successfully in her last admission October 2017, so that is what we have chosen. I have spoken with Dr. Headley who is not only an on-call neurologist but her personal neurologist who sees her frequently, and he agrees with this plan. He also thinks that Vimpat is a good option for seizure control, which I agree with. We will plan to load her with that. 02/11/18: Remains encephalopathy on the vent. No spontaneous movement noted when Versed is held. Will get a repeat EEG today. Wean sedation only if seizure controlled 02/12: Calm now, no convulsive activity. EEG result pending. Midazolam at 10. 02/13: On continuous EEG monitoring, no seizures noted. Versed had been weaned down to 5 mg/h, propofol at 20 mcg/kg/min. Patient does not open eyes or moves spontaneously 02/14: On attempted sedation wean yesterday night patient developed 2 episodes of seizures. Currently no clinical seizures. I discussed with Dr. Headley, will start phenobarbital 90 mg IV every 8 hours. Repeat EEG today. Currently back on 50 mcg/kg/min of propofol, Versed 7 mg per hour 02/15: Remains heavily sedated, started on phenobarbital IV yesterday. Level only 2.8. Will increase dose to 120 mg every 8 hours repeat level in a.m. EEG today pending. No sedation weaning without clearance from Dr. Headley. EEG yesterday showed some left-sided phase reversal. Leukocytosis with bandemia noted, will re culture 02/16: Pt had persistent epileptiform activity on eeg 02/[address] Headley. No sedation vacation until repeat EEG shows resolution. I have updated about this at the bedside. Repeat cultures pending at this time. Check renal ultrasound as the patient had recent hydronephrosis, ureteral stent. Patient remains critically ill in severely encephalopathic due to uncontrolled seizures 02/17: remains deeply sedated for status epilepticus. phenobarb level 55.[address] Headley managing anti-epileptics: very difficult to control seizures as well as difficult medication titration given multiple anaphylactic allergies to anticonvulsants. 02/18: T-max 100. Currently 99.4. Tolerating tube feeding. No bowel movement. 4 days. Remains sedated on midazolam and propofol drips 02/19: T-max 101.6. Currently 99.6. Tolerating tube feeds. 2 problems overnight. Remains on midazolam and propofol drips and phenobarbital, valproic acid and lacosamide 02/20: Afebrile. Propofol increased to 30 mg/kg/min overnight. Suppressing seizures currently. Increasing antiepileptics per neurology. Tolerating tube feeding. Positive BM. 02/21: Afebrile. Off propofol drip. Midazolam drip at 1 mg an hour. No signs of seizure activity on the last 2 EEGs. Tolerating tube feeding. Positive BM. 02/22: Off all sedation. EEG reveals moderate to severe encephalopathy. No epileptiform activity. Blinks eyes. Withdraws to pain in all 4 extremities. 02/23: Again off all sedation. Phenobarbital decreased to 100 mg every 8 hours per neurology. Opens eyes and blinks. Does not follow commands. Quite edematous. SUBJECTIVE: 02/24: Afebrile. Currently on CPAP trial. Opens eyes and blinks. Does not follow commands. Receiving furosemide 40 mg 1 for diuresis. 02/25: T-max 100.4. Patient continues on CPAP trials 155.35. Patient not following commands. Patient remains off sedation since 02/22/18. Discussion regarding tracheostomy and PEG placement with family at bedside. 02/26: Patient experienced low-grade temperature last night. Patient tolerated CPAP trials greater than 12 hours yesterday. Plan for tracheostomy and PEG placement today. Noted slight increase in WBC count. Bronchoscopy BAL sputum culture sent post tracheostomy. Phenobarbital and valproic acid levels therapeutic. 02/27: No acute events overnight. The patient's hemoglobin this a.m. was noted to be 6.6 labs repeated consistent with hemoglobin 6.8 the patient is receiving 2 units of packed red blood cells. Patient was noted to be hypocalcemic will receive 2 g calcium gluconate and electrolytes are being repleted. Patient's propofol was discontinued at 1900 on 02/26/18. Patient spontaneously opens eyes to stimulation. Tube feeds resumed post PEG placement. Objective Vital Signs Date Time Temp Pulse Resp B/P (MAP) Pulse Ox O2 Delivery O2 Flow Rate FiO2 02/27/18 16:02 100 45 02/27/18 14:13 98.6 68 17 157/68 Intake and Output 02/27/18 02/27/18 02/28/18 08:00 16:00 00:00 Intake Total 205 ml 1480 ml 430 ml Output Total 1050 ml Balance -845 ml 1480 ml 430 ml Result Diagram: 02/27/18 0645 02/27/18 0500 Imaging Last Impressions Chest X-Ray 02/27/18 0600 Signed Impressions: Service Date/Time: Tuesday, February 27, 2018 04:51 - CONCLUSION: No significant change. Bautista Wynne MD Renal Ultrasound 02/16/18 0000 Signed Impressions: Service Date/Time: Friday, February 16, 2018 10:17 - CONCLUSION: 1. Unremarkable renal ultrasound examination without evidence for obstructive uropathy. Adin Sanchez MD Head CT 02/10/18 1115 Signed Impressions: Service Date/Time: Saturday, February 10, 2018 12:19 - CONCLUSION: Stable negative noncontrast CT. Mustapha Grossman MD Brain MRI 02/10/18 0000 Signed Impressions: Service Date/Time: Saturday, February 10, 2018 16:30 - CONCLUSION: 1. Stable appearance with no acute hemorrhage, mass or infarction. 2. Moderate atrophic change and stable mild ventricular prominence. Mustapha Grossman MD Last Impressions Chest X-Ray 02/25/18 0600 Signed Impressions: Service Date/Time: Sunday, February 25, 2018 04:05 - CONCLUSION: 1. Bilateral lower lobe atelectasis versus pneumonia. There has been no significant change when compared to the prior exam. Inder Maria MD Renal Ultrasound 02/16/18 0000 Signed Impressions: Service Date/Time: Friday, February 16, 2018 10:17 - CONCLUSION: 1. Unremarkable renal ultrasound examination without evidence for obstructive uropathy. Adin Sanchez MD Head CT 02/10/18 1115 Signed Impressions: Service Date/Time: Saturday, February 10, 2018 12:19 - CONCLUSION: Stable negative noncontrast CT. Mustapha Grossman MD Brain MRI 02/10/18 0000 Signed Impressions: Service Date/Time: Saturday, February 10, 2018 16:30 - CONCLUSION: 1. Stable appearance with no acute hemorrhage, mass or infarction. 2. Moderate atrophic change and stable mild ventricular prominence. Mustapha Grossman MD Last Impressions Chest X-Ray 02/24/18 06 Signed Impressions: Service Date/Time: Saturday, February 24, 2018 04:03 - CONCLUSION: 1. Patchy alveolar disease characteristic of edema or pneumonia. There has been no significant change when compared to the prior exam. Bilateral effusions Inder Maria MD Renal Ultrasound 02/16/18 Signed Impressions: Service Date/Time: Friday, February 16, 2018 10:17 - CONCLUSION: 1. Unremarkable renal ultrasound examination without evidence for obstructive uropathy. Adin Sanchez MD Head CT 02/10/18 1115 Signed Impressions: Service Date/Time: Saturday, February 10, 2018 12:19 - CONCLUSION: Stable negative noncontrast CT. Mustapha Grossman MD Brain MRI 02/10/18 0000 Signed Impressions: Service Date/Time: Saturday, February 10, 2018 16:30 - CONCLUSION: 1. Stable appearance with no acute hemorrhage, mass or infarction. 2. Moderate atrophic change and stable mild ventricular prominence. Mustapha Grossman MD Procedures 02/26-PEG placement 02/26-percutaneous tracheostomy Objective Remarks GENERAL: 67-year-old female with generalized anasarca with no sedation , nonresponsive HEENT: Normocephalic. Atraumatic. Pupils 2mm, equal, round, reactive, conjugate. Mucous membranes are moist and pink.. NECK: Trachea is midline. 8.0 Shiley tracheostomy CHEST: Essentially clear to auscultation bilaterally. Equal chest rise CARDIOVASCULAR: RRR. S1, S2 without murmur ABDOMEN: Soft, nontender, obese nondistended. No guarding. PEG site clean dry and intact MUSCULOSKELETAL: Pulses 2+. 2+ peripheral edema NEUROLOGICAL: Does not follow commands. Positive cough. Positive corneal reflex. Withdraws to pain bilateral upper extremities. Upward toes. Spontaneous eye opening to physical stimulation SKIN: Bullous/clear areas bilateral upper extremities right greater than left. Date of Insertion: Feb 25, 2018 Date of Insertion: Feb 17, 2018 Line: PICC Side: Left Location: Antecubital A/P Assessment and Plan Neuro/Psych: Status epilepticus Elevated IOP Acute encephalopathy Continue valproate 500 mg IV every 4 hours. Level currently 41. Continue phenobarbital 100 mg IV every 8 hours. Level currently 35.1 Continue lacosamide 100 mg IV every 8 hours. MRI brain 02/10 revealed mild ventricular enlargement. Atrophy. EEG 02/24 Improved EEG demonstrating mild encephalopathy in sleep state. Clinical correlation. EEG 02/21 revealed moderate encephalopathy. No epileptic activity EEG 02/20 revealed moderate to severe encephalopathy. No epileptiform activity EEG brain 02/18 revealed suppressed platelets. EEG brain 02/16 revealed left frontal central spiking. -EEG 02/15/18 showed persistent seizure activity 02/14 probable phase reversal noted on left side. 02/15 persistent seizures -EEG repeat 02/12 no active seizures. -No sedation vacation until cleared by Dr. Headley-off sedation since 02/22 -Continue ICU care, frequent neuro checks-patient currently off all sedation spontaneous eye opening with stimulation At home on valproic acid 500 mg 3 times daily with 250 mg at night Acetaminophen 650 mg every 6 hours as needed fever Continue bimatoprost 0.01% 1 drop each eye at night with appropriate hospital substitution latanoprost 0.005% 1 drop each eye at night Folic acid and phenobarbital levels-therapeutic limits Resp: Acute respiratory failure/hypoxic and hypercapnic ACV 500/5/40 PSV trial 15/5 and 40%, continue Ventilator bundle Albuterol/ipratropium aerosols every 6 hours with albuterol aerosols every 2 hours as needed dyspnea Continue montelukast 10 mg by tube daily Spontaneous breathing trials asa tolerated 02/25 chest x-ray in a.m. -bilateral lobe atelectasis versus pneumonia 02/26 S/P tracheostomy placement CV: Hypertension Dyslipidemia Maintain mean arterial pressure greater than 65 When appropriate lisinopril 20 mg p.o. daily/home medication for hypertension. As needed hydralazine/labetalol and Nitropaste to keep systolic blood pressure less than 170 Continue aspirin 81 mg p.o. daily Hospital no substitution for ezetimibe 10 mg p.o. daily for dyslipidemia GI Hypoalbuminemia OG tube and tube feeds with vital high-protein goal 65 cc/h per nutrition's recommendations Lansoprazole for GI prophylaxis Docusate sodium/senna 1 tablet twice daily for bowel regimen Continue free water 100 mL every 6 hours Consult GI- PEG placement scheduled for today 02/27 resume tube feeds : Overactive bladder Recent ureteral stent for hydronephrosis -daily BMP. Sodium slowly improving currently 140 -ICU electrolyte protocol. Keep Mag>2 Renal ultrasound revealed no hydronephrosis 02/16 Currently holding oxybutynin 5 mg daily ID: -UTI with E. coli 02/10 Funguria C. difficile Persistent leukocytosis Will discontinue cefepime 2 g IV every 8 hours 02/18 with status epilepticus. Discontinue piperacillin/tazobactam day #5 per infectious disease on 02/22 Metronidazole 500 mg by tube 3 times daily for C. difficile, 02/26 micafungin initiated ID following-Dr. Rolle Pertinent cultures No growth to date blood cultures 2 and sputum 02/19 02/18 -urine culture -C glabrata 02/15 -UA -no growth 02/15 blood cultures 2 -no growth 02/10 -UA -E. coli HEME: Leukocytosis Macrocytic anemia -Monitor CBC. Follow trend 02/27 hemoglobin 6.8, transfused 2 units packed red blood cell, follow-up posttransfusion CBC Endo Mild hyperglycemia Hypothyroidism Sliding scale insulin with NovoLog with Accu-Cheks to maintain euglycemia/low regimen every 6 hours Continue levothyroxine 75 mcg by tube daily recheck TSH was 10.4. Continue levothyroxine to 88 mcg daily Access -Left antecubital PICC line placed 02/17/dual-lumen Prophylaxis -GI -lansoprazole -DVT -SCD/enoxaparin Level 3 follow-up. Discussed with LUBRICATION TECHNICIAN at bedside ([facility]) Physician Gini Sahu MD Feb 27, 2018 16:40
--- NOTE | 2018-02-27 17:30 | RADRPT ---
EXAM DATE/TIME: 02/27/2018 17:12 [place] COMPARISON: CHEST SINGLE AP, February 27, 2018, 4:51. INDICATIONS : Respiratory failure. MEDICAL HISTORY : Arthritis. Hypertension Seizures SURGICAL HISTORY : Hysterectomy. section. Thoracic fusion. ENCOUNTER: Subsequent ACUITY: 1 week PAIN SCORE: Non-responsive. LOCATION: Bilateral chest FINDINGS: Increasing air space disease is identified in the left midlung. There is persistent significant airsp pedrito disease in both bases with suspected bilateral effusions. Heart and mediastinal structures are stable. Tracheostomy tube and left upper extremity PICC line are in stable position. Posterior fusion rods are again noted. CONCLUSION: Increasing airspace disease especially in the left lung. No other significant change. Ken Avila MD on February 27, 2018 at 17:26 Board Certified Radiologist. This report was verified electronically.
[2018-02-27] MEDS ORDERED: CALCIUM GLUCONATE INJ 2 GM in DEXTROSE 5% IN WATER 100ML INJ 100 ML IV ONE ×2 (18:00)
[2018-02-27] MEDS: MONTELUKAST SODIUM 10 MG TAB PO SCH (21:20)
[2018-02-27] MEDS: LATANOPROST 0.005% OPHT SOLN 2.5 ML BTL EACH EYE SCH (21:21)
[2018-02-27 22:05] LABS: HEMATOCRIT 31.7 % (35.0-46.0); HEMOGLOBIN 10.7 GM/DL (11.6-15.3)
[2018-02-27] MEDS: MICAFUNGIN 100 MG/NS 100 ML IV SCH ×2 (23:52)
[2018-02-28] VITALS (23 sets, daily range): BP systolic 135–193; BP diastolic 63–87; PULSE 71–92; RESP 15–34; TEMP 98.5–99.7; O2SAT 97–100
[2018-02-28] MEDS: VALPROATE INJ 500 MG in SODIUM CHLORIDE 0.9% INJ 100 ML IV SCH ×6 (00:14→20:34)
[2018-02-28] MEDS: PHENobarbital SOD 130 MG/ML VIAL IV SCH ×3 (02:17→17:34)
[2018-02-28] MEDS: POTASSIUM CHLOR 20 MEQ PREMIX 100 ML IV PRN ×3 (02:31→05:16)
[2018-02-28] MEDS: CHLORHEXIDINE GLUCONATE 2 % 1 PACK (2 CLOTHS) TOP SCH (04:00)
[2018-02-28] MEDS: LACOSAMIDE INJ 100 MG in SODIUM CHLORIDE 0.9% INJ 100 ML IV SCH ×3 (04:18→20:16)
[2018-02-28] MEDS: hydrALAZINE HCL 20 MG/ML VIAL IV PUSH PRN (04:19)
[2018-02-28] MEDS: INSULIN NovoLIN REGULAR SUPPLEMENTAL SCALE SQ SCH ×4 (06:00→17:34)
[2018-02-28 06:23] LABS: HEMATOCRIT 28.4 % (35.0-46.0); HEMOGLOBIN 9.7 GM/DL (11.6-15.3); MEAN CELL VOLUME 94.9 FL (80.0-100.0); MEAN CORPUSCULAR HEMOGLOBIN 32.3 PG (27.0-34.0); PLATELET COUNT 302 TH/MM3 (150-450); RED BLOOD COUNT 2.99 MIL/MM3 (4.00-5.30); RED CELL DISTRIBUTION WIDTH 20.4 % (11.6-17.2); WHITE BLOOD COUNT 12.1 TH/MM3 (4.0-11.0)
[2018-02-28] MEDS: metroNIDAZOLE 500 MG TAB PO SCH ×3 (06:43→20:17)
[2018-02-28] MEDS: LEVOTHYROXINE SODIUM 88 MCG TAB PO SCH (06:44)
[2018-02-28] MEDS: ARTIFICIAL TEARS OPTH SOLN 15 ML BTL EACH EYE SCH ×3 (06:44→20:17)
[2018-02-28] MEDS: SODIUM CHLORIDE 0.9% FLUSH 10 ML FLUSH IV FLUSH SCH (07:59)
[2018-02-28] MEDS: LANSOPRAZOLE SOLUTAB 30 MG TAB NG SCH (07:59)
[2018-02-28] MEDS: LISINOPRIL 10 MG TAB PO SCH ×2 (07:59→20:17)
[2018-02-28] MEDS: CHLORHEXIDINE 0.12% (ORAL KIT) 15 ML CUP MT SCH ×2 (08:00→20:00)
[2018-02-28] MEDS: DOCUSATE SODIUM 50 MG/SENNA 8.6 MG TAB PO SCH ×2 (08:01→20:17)
[2018-02-28] MEDS: BACITRACIN TOP OINT 15 GM TUBE TOPICAL SCH ×2 (08:01→20:18)
[2018-02-28] MEDS: RESP: ALBUTEROL 2.5 MG/3 ML NEB (PRN) NEB (08:37)
--- NOTE | 2018-02-28 08:44 | HHI.CCPN ---
Subjective Remarks/Hospital Course This is a 67-year-old female with a history of poorly controlled seizures who presents with acute altered mental status. She was last seen normal at 3 AM this morning. Initially she was considered to be a stroke alert, however CT noncontrasted brain was negative and her nonfocal appearance was much more suggestive of seizures and stroke, along with the fact that her last seen normal time was significantly delayed. Stat EEG was ordered and she was found to be in status epilepticus. She was emergently intubated due to her poor mental status. I was called immediately down to the bedside for the EEG demonstrating status. At the bedside, I pushed 10 mg of Versed IV 1 and started her on a Versed drip at 10 mg an hour. No information is available from the patient due to her mental status. ROS is unobtainable. The majority of the information I have is obtained from medical record, and in specifically the H&P documented by Dr. Guerra back in October 2017, which is very helpful. In reading through her chart, it appears that when she comes off her Topamax, she goes into status. It appears that she has recently come off Topamax again due to side effects. She is anaphylactically allergic to Keppra and phenytoin, so these are not available to us to use. Versed drip was used successfully in her last admission October 2017, so that is what we have chosen. I have spoken with Dr. Headley who is not only an on-call neurologist but her personal neurologist who sees her frequently, and he agrees with this plan. He also thinks that Vimpat is a good option for seizure control, which I agree with. We will plan to load her with that. 02/11/18: Remains encephalopathy on the vent. No spontaneous movement noted when Versed is held. Will get a repeat EEG today. Wean sedation only if seizure controlled 02/12: Calm now, no convulsive activity. EEG result pending. Midazolam at 10. 02/13: On continuous EEG monitoring, no seizures noted. Versed had been weaned down to 5 mg/h, propofol at 20 mcg/kg/min. Patient does not open eyes or moves spontaneously 02/14: On attempted sedation wean yesterday night patient developed 2 episodes of seizures. Currently no clinical seizures. I discussed with Dr. Headley, will start phenobarbital 90 mg IV every 8 hours. Repeat EEG today. Currently back on 50 mcg/kg/min of propofol, Versed 7 mg per hour 02/15: Remains heavily sedated, started on phenobarbital IV yesterday. Level only 2.8. Will increase dose to 120 mg every 8 hours repeat level in a.m. EEG today pending. No sedation weaning without clearance from Dr. Headley. EEG yesterday showed some left-sided phase reversal. Leukocytosis with bandemia noted, will re culture 02/16: Pt had persistent epileptiform activity on eeg 02/[address] Headley. No sedation vacation until repeat EEG shows resolution. I have updated about this at the bedside. Repeat cultures pending at this time. Check renal ultrasound as the patient had recent hydronephrosis, ureteral stent. Patient remains critically ill in severely encephalopathic due to uncontrolled seizures 02/17: remains deeply sedated for status epilepticus. phenobarb level 55.[address] Headley managing anti-epileptics: very difficult to control seizures as well as difficult medication titration given multiple anaphylactic allergies to anticonvulsants. 02/18: T-max 100. Currently 99.4. Tolerating tube feeding. No bowel movement. 4 days. Remains sedated on midazolam and propofol drips 02/19: T-max 101.6. Currently 99.6. Tolerating tube feeds. 2 problems overnight. Remains on midazolam and propofol drips and phenobarbital, valproic acid and lacosamide 02/20: Afebrile. Propofol increased to 30 mg/kg/min overnight. Suppressing seizures currently. Increasing antiepileptics per neurology. Tolerating tube feeding. Positive BM. 02/21: Afebrile. Off propofol drip. Midazolam drip at 1 mg an hour. No signs of seizure activity on the last 2 EEGs. Tolerating tube feeding. Positive BM. 02/22: Off all sedation. EEG reveals moderate to severe encephalopathy. No epileptiform activity. Blinks eyes. Withdraws to pain in all 4 extremities. 02/23: Again off all sedation. Phenobarbital decreased to 100 mg every 8 hours per neurology. Opens eyes and blinks. Does not follow commands. Quite edematous. SUBJECTIVE: 02/24: Afebrile. Currently on CPAP trial. Opens eyes and blinks. Does not follow commands. Receiving furosemide 40 mg 1 for diuresis. 02/25: T-max 100.4. Patient continues on CPAP trials 27/03.35. Patient not following commands. Patient remains off sedation since 02/22/18. Discussion regarding tracheostomy and PEG placement with family at bedside. 02/26: Patient experienced low-grade temperature last night. Patient tolerated CPAP trials greater than 12 hours yesterday. Plan for tracheostomy and PEG placement today. Noted slight increase in WBC count. Bronchoscopy BAL sputum culture sent post tracheostomy. Phenobarbital and valproic acid levels therapeutic. 02/27: No acute events overnight. The patient's hemoglobin this a.m. was noted to be 6.6 labs repeated consistent with hemoglobin 6.8 the patient is receiving 2 units of packed red blood cells. Patient was noted to be hypocalcemic will receive 2 g calcium gluconate and electrolytes are being repleted. Patient's propofol was discontinued at 1900 on 02/26/18. Patient spontaneously opens eyes to stimulation. Tube feeds resumed post PEG placement. 02/28: Patient opens eyes to stimulation. Complete sedation discontinued since , post tracheostomy and PEG tube placement. CPAP trials in progress. Patient tolerating tube feeds. WBC count slightly elevated, BMP pending. Objective Vital Signs Date Time Temp Pulse Resp B/P (MAP) Pulse Ox O2 Delivery O2 Flow Rate FiO2 02/28/18 06:00 88 02/28/18 04:23 99 45 02/28/18 04:00 98.7 19 193/87 (122) Intake and Output 02/28/18 02/28/18 03/01/18 08:00 16:00 00:00 Intake Total 766 ml Output Total 1625 ml Balance -859 ml Result Diagram: 02/28/18 0500 02/27/18 1825 Imaging Last Impressions Chest X-Ray 02/27/18 0600 Signed Impressions: Service Date/Time: Tuesday, February 27, 2018 04:51 - CONCLUSION: No significant change. Bautista Wynne MD Renal Ultrasound 02/16/18 0000 Signed Impressions: Service Date/Time: Friday, February 16, 2018 10:17 - CONCLUSION: 1. Unremarkable renal ultrasound examination without evidence for obstructive uropathy. Adin Sanchez MD Head CT 02/10/18 1115 Signed Impressions: Service Date/Time: Saturday, February 10, 2018 12:19 - CONCLUSION: Stable negative noncontrast CT. Mustapha Grossman MD Brain MRI 02/10/18 0000 Signed Impressions: Service Date/Time: Saturday, February 10, 2018 16:30 - CONCLUSION: 1. Stable appearance with no acute hemorrhage, mass or infarction. 2. Moderate atrophic change and stable mild ventricular prominence. Mustapha Grossman MD Last Impressions Chest X-Ray 02/27/18 0600 Signed Impressions: Service Date/Time: Tuesday, February 27, 2018 04:51 - CONCLUSION: No significant change. Bautista Wynne MD Renal Ultrasound 02/16/18 0000 Signed Impressions: Service Date/Time: Friday, February 16, 2018 10:17 - CONCLUSION: 1. Unremarkable renal ultrasound examination without evidence for obstructive uropathy. Adin Sanchez MD Head CT 02/10/18 1115 Signed Impressions: Service Date/Time: Saturday, February 10, 2018 12:19 - CONCLUSION: Stable negative noncontrast CT. Mustapha Grossman MD Brain MRI 02/10/18 0000 Signed Impressions: Service Date/Time: Saturday, February 10, 2018 16:30 - CONCLUSION: 1. Stable appearance with no acute hemorrhage, mass or infarction. 2. Moderate atrophic change and stable mild ventricular prominence. Mustapha Grossman MD Last Impressions Chest X-Ray 02/25/18 0600 Signed Impressions: Service Date/Time: Sunday, February 25, 2018 04:05 - CONCLUSION: 1. Bilateral lower lobe atelectasis versus pneumonia. There has been no significant change when compared to the prior exam. Inder Maria MD Renal Ultrasound 02/16/18 0000 Signed Impressions: Service Date/Time: Friday, February 16, 2018 10:17 - CONCLUSION: 1. Unremarkable renal ultrasound examination without evidence for obstructive uropathy. Adin Sanchez MD Head CT 02/10/18 1115 Signed Impressions: Service Date/Time: Saturday, February 10, 2018 12:19 - CONCLUSION: Stable negative noncontrast CT. Mustapha Grossman MD Brain MRI 02/10/18 0000 Signed Impressions: Service Date/Time: Saturday, February 10, 2018 16:30 - CONCLUSION: 1. Stable appearance with no acute hemorrhage, mass or infarction. 2. Moderate atrophic change and stable mild ventricular prominence. Mustapha Grossman MD Last Impressions Chest X-Ray 02/24/18 0600 Signed Impressions: Service Date/Time: Saturday, February 24, 2018 04:03 - CONCLUSION: 1. Patchy alveolar disease characteristic of edema or pneumonia. There has been no significant change when compared to the prior exam. Bilateral effusions Inder Maria MD Renal Ultrasound 02/16/18 0000 Signed Impressions: Service Date/Time: Friday, February 16, 2018 10:17 - CONCLUSION: 1. Unremarkable renal ultrasound examination without evidence for obstructive uropathy. Adin Sanchez MD Head CT 02/10/18 1115 Signed Impressions: Service Date/Time: Saturday, February 10, 2018 12:19 - CONCLUSION: Stable negative noncontrast CT. Mustapha Grossman MD Brain MRI 02/10/18 0000 Signed Impressions: Service Date/Time: Saturday, February 10, 2018 16:30 - CONCLUSION: 1. Stable appearance with no acute hemorrhage, mass or infarction. 2. Moderate atrophic change and stable mild ventricular prominence. Mustapha Grossman MD Procedures 02/26-PEG placement 02/26-percutaneous tracheostomy Objective Remarks GENERAL: 67-year-old female with generalized anasarca with no sedation , nonresponsive HEENT: Normocephalic. Atraumatic. Pupils 2mm, equal, round, reactive, conjugate. Mucous membranes are moist and pink.. NECK: Trachea is midline. 8.0 Shiley tracheostomy CHEST: Essentially clear to auscultation bilaterally. Equal chest rise CARDIOVASCULAR: RRR. S1, S2 without murmur ABDOMEN: Soft, nontender, obese nondistended. No guarding. PEG site clean dry and intact MUSCULOSKELETAL: Pulses 2+. 2+ peripheral edema NEUROLOGICAL: Does not follow commands. Positive cough. Positive corneal reflex. Withdraws to pain bilateral upper extremities. Upward toes. Spontaneous eye opening to physical stimulation SKIN: Bullous/clear areas bilateral upper extremities right greater than left. Date of Insertion: Feb 25, 2018 Date of Insertion: Feb 17, 2018 Line: PICC Side: Left Location: Antecubital A/P Assessment and Plan Neuro/Psych: Status epilepticus Elevated IOP Acute encephalopathy Continue valproate 500 mg IV every 4 hours. Level currently 41. Continue phenobarbital 100 mg IV every 8 hours. Level currently 35.1 Continue lacosamide 100 mg IV every 8 hours. MRI brain 02/10 revealed mild ventricular enlargement. Atrophy. EEG 02/24 Improved EEG demonstrating mild encephalopathy in sleep state. Clinical correlation. EEG 02/21 revealed moderate encephalopathy. No epileptic activity EEG 02/20 revealed moderate to severe encephalopathy. No epileptiform activity EEG brain 02/18 revealed suppressed platelets. EEG brain 02/16 revealed left frontal central spiking. -EEG 02/15/18 showed persistent seizure activity 02/14 probable phase reversal noted on left side. 02/15 persistent seizures -EEG repeat 02/12 no active seizures. -No sedation vacation until cleared by Dr. Headley-off sedation since 02/22 -Continue ICU care, frequent neuro checks-patient currently off all sedation spontaneous eye opening with stimulation At home on valproic acid 500 mg 3 times daily with 250 mg at night Acetaminophen 650 mg every 6 hours as needed fever Continue bimatoprost 0.01% 1 drop each eye at night with appropriate hospital substitution latanoprost 0.005% 1 drop each eye at night Folic acid and phenobarbital levels-therapeutic limits Resp: Acute respiratory failure/hypoxic and hypercapnic ACV 15/500/5/40 PSV trial 15/5 and 40%, continue Ventilator bundle Albuterol/ipratropium aerosols every 6 hours with albuterol aerosols every 2 hours as needed dyspnea Continue montelukast 10 mg by tube daily Spontaneous breathing trials asa tolerated 02/25 chest x-ray in a.m. -bilateral lobe atelectasis versus pneumonia 02/26 S/P tracheostomy placement CV: Hypertension Dyslipidemia Maintain mean arterial pressure greater than 65 When appropriate lisinopril 20 mg p.o. daily/home medication for hypertension. As needed hydralazine/labetalol and Nitropaste to keep systolic blood pressure less than 170 Continue aspirin 81 mg p.o. daily Hospital no substitution for ezetimibe 10 mg p.o. daily for dyslipidemia GI Hypoalbuminemia OG tube and tube feeds with vital high-protein goal 65 cc/h per nutrition's recommendations Lansoprazole for GI prophylaxis Docusate sodium/senna 1 tablet twice daily for bowel regimen Continue free water 100 mL every 6 hours 02/26 PEG placement : Overactive bladder Recent ureteral stent for hydronephrosis -daily BMP. Sodium slowly improving currently 140 -ICU electrolyte protocol. Keep Mag>2 Renal ultrasound revealed no hydronephrosis 02/16 Currently holding oxybutynin 5 mg daily ID: -UTI with E. coli 02/10 Funguria C. difficile Persistent leukocytosis Discontinued cefepime 2 g IV every 8 hours 02/18 with status epilepticus. Discontinue piperacillin/tazobactam day #5 per infectious disease on 02/22 Metronidazole 500 mg by tube 3 times daily for C. difficile, 02/26 micafungin initiated ID following-Dr. Rolle Pertinent cultures No growth to date blood cultures 2 and sputum 02/19 02/18 -urine culture -C glabrata 02/15 -UA -no growth 02/15 blood cultures 2 -no growth 02/10 -UA -E. coli HEME: Leukocytosis Macrocytic anemia -Monitor CBC. Follow trend 02/27 hemoglobin 6.8, transfused 2 units packed red blood cell Endo Mild hyperglycemia Hypothyroidism Sliding scale insulin with NovoLog with Accu-Cheks to maintain euglycemia/low regimen every 6 hours TSH was 10.4. Continue levothyroxine to 88 mcg daily Access -Left antecubital PICC line placed 02/17/dual-lumen Prophylaxis -GI -lansoprazole -DVT -SCD/enoxaparin Level 3 follow-up. Discussed with [employer] at bedside (Briana) Physician Gini Sahu MD Feb 28, 2018 08:44
[2018-02-28] MEDS: FUROSEMIDE 40 MG/4 ML VIAL IV PUSH SCH ×2 (10:47→17:34)
[2018-02-28 14:29] LABS: HEMATOCRIT 36.5 % (35.0-46.0); HEMOGLOBIN 12.1 GM/DL (11.6-15.3); MEAN CELL VOLUME 94.9 FL (80.0-100.0); MEAN CORPUSCULAR HEMOGLOBIN 31.4 PG (27.0-34.0); MEAN CORPUSCULAR HGB CONC 33.1 % (32.0-36.0); MEAN PLATELET VOLUME 8.1 FL (7.0-11.0); PLATELET COUNT 314 TH/MM3 (150-450); RED BLOOD COUNT 3.85 MIL/MM3 (4.00-5.30); RED CELL DISTRIBUTION WIDTH 20.3 % (11.6-17.2); WHITE BLOOD COUNT 12.7 TH/MM3 (4.0-11.0)
[2018-02-28 14:33] LABS: BICARBONATE 26.3 MEQ/L (21.0-32.0); CALCIUM 8.6 MG/DL (8.5-10.1); CREATININE 0.42 MG/DL (0.50-1.00); PHOSPHORUS 3.3 MG/DL (2.5-4.9)
--- NOTE | 2018-02-28 15:22 | HHI.IDPN ---
Note Infectious Disease Note Patient is on the ventilator. CPAP in progress. Post tracheostomy 02/26. Sedated. Afebrile. kelley. No new seizure activity noted. Presented to the emergency department on 02/10/2018 with acute altered mental status. She was found to be with status epilepticus. In the emergency department, the temperature phyllis to 103 degrees on the evening of admission. She was intubated and EEG has been repeatedly performed and shows that she is continuing to have seizure activity. The patient continues to have fever with temperature spike of 102 early today. She received IV antibiotic treatment for urinary tract infection due to Escherichia coli, which was cultured on admission urine culture. PAST MEDICAL HISTORY: Hypertension, hyperlipidemia, seizure disorder, urinary incontinence, history of back surgery, history of shoulder surgery, hysterectomy, history of knee surgery. ALLERGIES: FLUCONAZOLE, PHENYTOIN, RIFAMPIN, LEVETIRACETAM, HYDROMORPHONE. MEDICATIONS: Current Medications Medications (Trade) Dose Ordered Sig/Tiera Route PRN Reason Start Time Stop Time Status Last Admin Dose Admin Sodium Chloride (NS Flush) 2 ml UNSCH PRN IV FLUSH FLUSH AFTER USING IV ACCESS 02/10/18 11:15 Potassium Chloride 100 ml @ 25 mls/hr Q2H PRN IV For Potassium 2.8 - 3.2 mEq/L 02/10/18 13:15 Potassium Chloride 100 ml @ 50 mls/hr Q2H PRN IV For Potassium 2.8 - 3.2 mEq/L 02/10/18 13:15 02/28/18 05:16 Potassium Bicarb/ Potassium Chloride (K-Lyte Cl Eff) 50 meq UNSCH PRN PO For Potassium 3.3 - 3.5 mEq/L 02/10/18 13:15 02/12/18 09:38 Potassium Chloride 100 ml @ 25 mls/hr UNSCH PRN IV For Potassium 3.3 - 3.5 mEq/L 02/10/18 13:15 Potassium Chloride 100 ml @ 50 mls/hr Q2H PRN IV For Potassium 3.3 - 3.5 mEq/L 02/10/18 13:15 Magnesium Sulfate 4 gm/Sodium Chloride 100 ml @ 50 mls/hr UNSCH PRN IV For Magnesium 0.9 - 1.1 mg/dL 02/10/18 13:15 Magnesium Oxide (Mag-Ox) 800 mg UNSCH PRN PO For Magnesium 1.2 - 1.6 mg/dL 02/10/18 13:15 Magnesium Sulfate 2 gm/Sodium Chloride 100 ml @ 50 mls/hr UNSCH PRN IV For Magnesium 1.2 - 1.6 mg/dL 02/10/18 13:15 Potassium Phosphate (K-Phos) 2,000 mg Q4H PRN PO For Phosphorus < 2.5 mg/dL 02/10/18 13:15 Sodium Phosphate 30 mmol/Sodium Chloride 250 ml @ 42 mls/hr UNSCH PRN IV For Phosphorus < 2.5 mg/dL 02/10/18 13:15 Potassium Phosphate (K-Phos) 2,000 mg UNSCH PRN PO/TUBE SEE LABEL COMMENTS 02/10/18 13:15 Potassium Phosphate 30 mmol/ Sodium Chloride 260 ml @ 42 mls/hr UNSCH PRN IV SEE LABEL COMMENTS 02/10/18 13:15 Chlorhexidine Gluconate (Peridex 0.12% Liq) 15 ml BID@08,20 MT 02/10/18 20:00 02/28/18 08:00 Dextrose (D50w (Vial) Inj) 25 ml UNSCH PRN IV PUSH HYPOGLYCEMIA-SEE COMMENTS 02/10/18 13:15 02/26/18 23:47 Insulin Human Regular (NovoLIN R SUPPLEMENTAL SCALE) 1 Q6HR SQ 02/10/18 18:00 02/25/18 00:00 Ondansetron HCl (Zofran Inj) 4 mg Q6H PRN IV PUSH NAUSEA OR VOMITING 02/10/18 13:15 Miscellaneous Information 1 Q361D XX 02/10/18 13:15 02/10/18 13:15 Chlorhexidine Gluconate (Chlorhexidine 2% Cloth) Taper DAILY@04 TOP 02/11/18 04:00 02/07/19 03:59 02/19/18 04:20 Chlorhexidine Gluconate (Chlorhexidine 2% Cloth) 3 pack UNSCH PRN TOP HYGIENIC CARE 02/10/18 13:15 Senna/Docusate Sodium (Anahi-Colace) 1 tab BID PO 02/10/18 21:00 02/27/18 21:20 Magnesium Hydroxide (Milk Of Magnesia Liq) 30 ml Q12H PRN PO Mild constipation 02/10/18 13:15 Sennosides (Senokot) 17.2 mg Q12H PRN PO Moderate constipation 02/10/18 13:15 Bisacodyl (Dulcolax Supp) 10 mg DAILY PRN RECTAL SEVERE CONSITIPATION 02/10/18 13:15 Lactulose (Lactulose Liq) 30 ml DAILY PRN PO SEVERE CONSITIPATION 02/10/18 13:15 Midazolam HCl 100 ml @ 2 mls/hr TITRATE PRN IV SEDATION 02/10/18 14:15 Future Hold 02/20/18 08:30 Lorazepam (Ativan Inj) 2 mg Q1H PRN IV PUSH seizures 02/11/18 15:00 02/14/18 01:48 Lacosamide 100 mg/ Sodium Chloride 110 ml @ 110 mls/hr Q8H IV 02/15/18 12:00 02/28/18 11:53 Sodium Chloride (NS Flush) See Protocol DAILY IV FLUSH 02/18/18 09:00 02/28/18 07:59 Sodium Chloride (NS Flush) See Protocol UNSCH PRN IV FLUSH SEE PROTOCOL TABLE 02/17/18 17:45 Heparin Sodium (Porcine) (Heparin Central Flush) See Protocol DAILY IV FLUSH 02/18/18 09:00 02/28/18 08:01 Heparin Sodium (Porcine) (Heparin Central Flush) See Protocol UNSCH PRN IV FLUSH SEE PROTOCOL TABLE 02/17/18 17:45 02/28/18 01:33 Sodium Chloride (NS Flush) UNSCH PRN IV FLUSH SEE PROTOCOL TABLE 02/17/18 17:45 02/23/18 15:11 Acetaminophen (Tylenol 650 Mg/ 20 ml Liq) 650 mg Q6H PRN PO fever 02/18/18 09:30 02/26/18 01:21 Artificial Tears (Tears Naturale Opth Soln) 1 drop Q8HR EACH EYE 02/18/18 14:00 02/28/18 11:53 Albuterol Sulfate (Albuterol Neb) 2.5 mg Q2HR NEB PRN NEB dyspnea 02/18/18 09:30 02/28/18 08:37 Labetalol HCl (Trandate Inj) 10 mg Q1H PRN IV PUSH SBP>170, DBP>90 02/18/18 09:30 02/27/18 16:31 Lansoprazole (Prevacid Odt) 30 mg DAILY NG 02/19/18 09:00 02/28/18 07:59 Montelukast Sodium (Singulair) 10 mg HS PO 02/18/18 21:00 02/27/18 21:20 Latanoprost (Xalatan 0.005% Opth Soln) 1 drop HS EACH EYE 02/18/18 21:00 02/27/18 21:21 Nitroglycerin (Nitroglycerin 2% Oint) 2 inch Q6HR PRN TOPICAL SBP>160, DBP>90 02/18/18 13:15 Hydralazine HCl (Apresoline Inj) 10 mg Q1HR PRN IV PUSH SBP>160, DBP>90 02/18/18 13:15 02/28/18 04:19 Terbutaline Sulfate (Brethine Inj) 1 mg UNSCH PRN SQ For Extravasation 02/18/18 18:45 Levothyroxine Sodium (Synthroid) 88 mcg DAILY@0600 PO 02/20/18 06:00 02/28/18 06:44 Valproate Sodium 500 mg/Sodium Chloride 105 ml @ 105 mls/hr Q4HR IV 02/19/18 20:00 02/28/18 11:53 Bacitracin (Baciguent Oint) 1 applic Q12HR TOPICAL 02/21/18 21:00 02/28/18 08:01 Metronidazole (Flagyl) 500 mg Q8HR PO 02/22/18 14:00 02/28/18 13:40 Phenobarbital Sodium (Luminal Inj) 100 mg Q8H IV 02/24/18 02:00 02/28/18 10:48 Lisinopril (Prinivil) 10 mg BID PO 02/24/18 21:00 02/28/18 07:59 Lactated Ringer's 1,000 ml @ 30 mls/hr Q24H PRN IV SEE LABEL COMMENTS 02/26/18 06:00 03/01/18 05:59 Sodium Chloride 500 ml @ 30 mls/hr [id number] PRN IV SEE LABEL COMMENTS 02/26/18 06:00 03/01/18 05:59 Povidone Iodine (Betadine 5% Antisepsis Kit) 1 applic NAILER MACHINE PRN EACH NARE SEE LABEL COMMENTS 02/26/18 06:00 03/01/18 05:59 Chlorhexidine Gluconate (Chlorhexidine 2% Cloth) 3 pack NAILER MACHINE PRN TOPICAL SEE LABEL COMMENTS 02/26/18 06:00 03/01/18 05:59 Micafungin Sodium 100 mg/Sodium Chloride 100 ml @ 100 mls/hr Q24H IV 02/26/18 23:00 02/27/18 23:52 Albuterol/ Ipratropium (Duoneb Neb) 1 ampule Q6HR NEB NEB 02/28/18 10:00 Furosemide (Lasix Inj) 40 mg BID@ IV PUSH 02/28/18 09:00 02/28/18 10:47 Objective: Vital Signs Date Time Temp Pulse Resp B/P (MAP) Pulse Ox O2 Delivery O2 Flow Rate FiO2 02/26/18 16:45 100 45 02/26/18 13:11 98 50 02/26/18 09:00 96 60 02/26/18 09:00 100 100 02/26/18 06:00 80 02/26/18 04:07 94 40 02/26/18 04:00 80 02/26/18 04:00 35 02/26/18 04:00 99.2 77 16 134/60 (84) 94 02/26/18 02:00 87 02/26/18 00:23 94 40 02/26/18 00:00 89 02/26/18 00:00 35 02/26/18 00:00 100.4 90 16 124/58 (80) 93 02/25/18 22:00 92 02/25/18 21:04 93 40 02/25/18 20:00 100.3 96 13 136/64 (88) 93 02/25/18 20:00 96 02/25/18 20:00 35 Laboratory Tests Test 02/27/18 05:00 02/27/18 06:45 02/27/18 20:30 02/28/18 05:00 White Blood Count 9.9 TH/MM3 9.7 TH/MM3 12.1 TH/MM3 Red Blood Count 1.93 MIL/MM3 1.98 MIL/MM3 2.99 MIL/MM3 Hemoglobin 6.6 GM/DL 6.8 GM/DL 10.7 GM/DL 9.7 GM/DL Hematocrit 19.6 % 21.8 % 31.7 % 28.4 % Mean Corpuscular Volume 101.9 FL 110.1 FL 94.9 FL Mean Corpuscular Hemoglobin 34.2 PG 34.1 PG 32.3 PG Mean Corpuscular Hemoglobin Concent 33.5 % 31.0 % 34.0 % Red Cell Distribution Width 16.2 % 18.0 % 20.4 % Platelet Count 329 TH/MM3 336 TH/MM3 302 TH/MM3 Mean Platelet Volume 7.9 FL 8.4 FL 8.0 FL Neutrophils (%) (Auto) 67.1 % Lymphocytes (%) (Auto) 22.9 % Monocytes (%) (Auto) 8.5 % Eosinophils (%) (Auto) 0.9 % Basophils (%) (Auto) 0.6 % Neutrophils # (Auto) 6.6 TH/MM3 Lymphocytes # (Auto) 2.3 TH/MM3 Monocytes # (Auto) 0.8 TH/MM3 Eosinophils # (Auto) 0.1 TH/MM3 Basophils # (Auto) 0.1 TH/MM3 CBC Comment DIFF FINAL Differential Comment Test 02/28/18 14:00 White Blood Count 12.7 TH/MM3 Red Blood Count 3.85 MIL/MM3 Hemoglobin 12.1 GM/DL Hematocrit 36.5 % Mean Corpuscular Volume 94.9 FL Mean Corpuscular Hemoglobin 31.4 PG Mean Corpuscular Hemoglobin Concent 33.1 % Red Cell Distribution Width 20.3 % Platelet Count 314 TH/MM3 Mean Platelet Volume 8.1 FL Laboratory Tests Test 02/27/18 05:00 02/27/18 18:25 02/28/18 14:00 Blood Urea Nitrogen 16 MG/DL 15 MG/DL Creatinine 0.26 MG/DL 0.42 MG/DL Random Glucose 75 MG/DL 137 MG/DL Total Protein 5.1 GM/DL Calcium Level 6.6 MG/DL 8.6 MG/DL Phosphorus Level 2.7 MG/DL 3.3 MG/DL Magnesium Level 1.7 MG/DL 2.0 MG/DL Sodium Level 148 MEQ/L 142 MEQ/L Potassium Level 3.0 MEQ/L 3.1 MEQ/L 3.9 MEQ/L Chloride Level 119 MEQ/L 107 MEQ/L Carbon Dioxide Level 20.8 MEQ/L 26.3 MEQ/L Anion Gap 8 MEQ/L 9 MEQ/L Estimat Glomerular Filtration Rate 261 ML/MIN 150 ML/MIN Protein Corrected Calcium 7.6 MG/DL Microbiology Date/Time Source Procedure Growth Status 02/26/18 09:30 Bronchial Washings Bronchial Acid Fast Stain - Final NO ACID FAST BACILLI SEEN Resulted 02/26/18 09:30 Bronchial Washings Bronchial Mycobacterial Culture Pending Resulted 02/26/18 09:30 Bronchial Washings Bronchial Fungal Smear - Final NO FUNGAL ELEMENTS SEEN. Resulted 02/26/18 09:30 Bronchial Washings Bronchial Fungal Culture Pending Resulted 02/26/18 09:30 Bronchial Washings Bronchial Gram Stain - Final Complete 02/26/18 09:30 Bronchial Washings Bronchial Bronchial Culture - Final HEAVY GROWTH NORMAL RESPIRATORY BEKA Complete Microbiology Date/Time Source Procedure Growth Status 02/26/18 09:30 Bronchial Washings Bronchial Acid Fast Stain Pending Received 02/26/18 09:30 Bronchial Washings Bronchial Mycobacterial Culture Pending Received 02/26/18 09:30 Bronchial Washings Bronchial Fungal Smear - Final NO FUNGAL ELEMENTS SEEN. Resulted 02/26/18 09:30 Bronchial Washings Bronchial Fungal Culture Pending Resulted 02/26/18 09:30 Bronchial Washings Bronchial Gram Stain - Final Resulted 02/26/18 09:30 Bronchial Washings Bronchial Bronchial Culture Pending Resulted Imaging: Chest X-Ray 02/27/18 0600 Signed Impressions: Service Date/Time: Tuesday, February 27, 2018 04:51 - CONCLUSION: No significant change. Bautista Wynne MD Chest X-Ray 02/27/18 0000 Signed Impressions: Service Date/Time: Tuesday, February 27, 2018 17:12 - CONCLUSION: Increasing airspace disease especially in the left lung. No other significant change. Ken Avila MD Chest X-Ray 02/26/18 0600 Signed Impressions: Service Date/Time: Monday, February 26, 2018 04:14 - CONCLUSION: No significant change. Bautista Wynne MD Chest X-Ray 02/26/18 0000 Signed Impressions: Service Date/Time: Monday, February 26, 2018 10:46 - CONCLUSION: 1. Tracheostomy good position. No pneumothorax. 2. Persistent bilateral lower lung zone airspace disease and associated pleural effusions. Adin Sanchez MD Chest X-Ray 02/25/18 0600 Signed Impressions: Service Date/Time: Sunday, February 25, 2018 04:05 - CONCLUSION: 1. Bilateral lower lobe atelectasis versus pneumonia. There has been no significant change when compared to the prior exam. Inder Maria MD Chest X-Ray 02/24/18 0600 Signed Impressions: Service Date/Time: Saturday, February 24, 2018 04:03 - CONCLUSION: 1. Patchy alveolar disease characteristic of edema or pneumonia. There has been no significant change when compared to the prior exam. Bilateral effusions Inder Maria MD PHYSICAL EXAMINATION: GENERAL: Patient is sedated. No acute distress. HEENT: No icterus. NECK: Supple, no adenopathy. LUNGS: Decreased breath sounds. No audible rhonchi. HEART: Regular S1 and S2, without audible murmurs, rubs or gallops. ABDOMEN: Obese, soft, positive bowel sounds. EXTREMITIES: Diffuse edema with clear fluid filled blisters on the arms. SKIN: No diffuse rash. NEUROLOGIC: Unable to assess. PSYCHIATRIC: Unable to assess. IMPRESSION: 1. Fever in patient with status epilepticus. Temperature improved. Now has low-grade. 2. Urinary tract infection due to Kathy. The urine culture can be repeated if the white blood cell count increases. 3. C. difficile colitis. It may be contributing to the elevated white blood cell count. 4. Acute respiratory failure. Probable pneumonia. Sputum culture has normal beka. Chest x-ray without acute infiltrate. 5. Probable sepsis. Blood cultures no growth. RECOMMENDATIONS: 1. Continue to treat the C. difficile with metronidazole. 2. Continue micafungin. 3. Monitor white blood cell count. 4. Monitor clinical status. 5. Repeat urine culture. Discussed with at bedside. Irving Rolle MD Feb 28, 2018 15:21
[2018-02-28] MEDS: RESP: ALBUTEROL 2.5 MG/IPRATROPIUM 0.5 MG NEB (SCH) NEB ×2 (15:40→20:00)
[2018-02-28] MEDS: MONTELUKAST SODIUM 10 MG TAB PO SCH (20:17)
[2018-02-28] MEDS: LATANOPROST 0.005% OPHT SOLN 2.5 ML BTL EACH EYE SCH (20:34)
[2018-03-01] VITALS (17 sets, daily range): BP systolic 113–157; BP diastolic 58–67; PULSE 60–110; RESP 16–36; TEMP 97.7–98.7; O2SAT 97–100
[2018-03-01] MEDS: VALPROATE INJ 500 MG in SODIUM CHLORIDE 0.9% INJ 100 ML IV SCH ×6 (01:30→22:23)
[2018-03-01] MEDS: RESP: ALBUTEROL 2.5 MG/IPRATROPIUM 0.5 MG NEB (SCH) NEB ×4 (02:48→20:19)
[2018-03-01] MEDS: PHENobarbital SOD 130 MG/ML VIAL IV SCH ×3 (03:06→16:47)
[2018-03-01] MEDS: LACOSAMIDE INJ 100 MG in SODIUM CHLORIDE 0.9% INJ 100 ML IV SCH ×3 (03:07→22:23)
[2018-03-01] MEDS: CHLORHEXIDINE GLUCONATE 2 % 1 PACK (2 CLOTHS) TOP SCH (04:00)
[2018-03-01] MEDS: ARTIFICIAL TEARS OPTH SOLN 15 ML BTL EACH EYE SCH ×3 (05:35→22:25)
[2018-03-01] MEDS: LEVOTHYROXINE SODIUM 88 MCG TAB PO SCH (05:35)
[2018-03-01] MEDS: metroNIDAZOLE 500 MG TAB PO SCH ×3 (05:35→22:24)
[2018-03-01 05:37] LABS: HEMATOCRIT 29.3 % (35.0-46.0); HEMOGLOBIN 9.9 GM/DL (11.6-15.3); MEAN CORPUSCULAR HEMOGLOBIN 32.1 PG (27.0-34.0); MEAN CORPUSCULAR HGB CONC 33.8 % (32.0-36.0); MEAN PLATELET VOLUME 7.7 FL (7.0-11.0); PLATELET COUNT 312 TH/MM3 (150-450); RED BLOOD COUNT 3.09 MIL/MM3 (4.00-5.30); RED CELL DISTRIBUTION WIDTH 19.9 % (11.6-17.2); WHITE BLOOD COUNT 10.2 TH/MM3 (4.0-11.0)
[2018-03-01] MEDS: INSULIN NovoLIN REGULAR SUPPLEMENTAL SCALE SQ SCH ×5 (05:40→23:35)
[2018-03-01 05:56] LABS: BICARBONATE 28.1 MEQ/L (21.0-32.0); CALCIUM 8.2 MG/DL (8.5-10.1); CREATININE 0.37 MG/DL (0.50-1.00); MAGNESIUM 1.9 MG/DL (1.5-2.5); PHOSPHORUS 3.3 MG/DL (2.5-4.9)
[2018-03-01] MEDS: DOCUSATE SODIUM 50 MG/SENNA 8.6 MG TAB PO SCH ×2 (09:00→22:24)
[2018-03-01] MEDS: LISINOPRIL 10 MG TAB PO SCH ×2 (09:09→22:24)
[2018-03-01] MEDS: FUROSEMIDE 40 MG/4 ML VIAL IV PUSH SCH ×2 (09:12→16:46)
[2018-03-01] MEDS: SODIUM CHLORIDE 0.9% FLUSH 10 ML FLUSH IV FLUSH SCH (09:12)
[2018-03-01] MEDS: LANSOPRAZOLE SOLUTAB 30 MG TAB NG SCH (09:13)
[2018-03-01] MEDS: CHLORHEXIDINE 0.12% (ORAL KIT) 15 ML CUP MT SCH ×2 (09:13→22:23)
--- NOTE | 2018-03-01 12:32 | HHI.CCPN ---
Subjective Remarks/Hospital Course This is a 67-year-old female with a history of poorly controlled seizures who presents with acute altered mental status. She was last seen normal at 3 AM this morning. Initially she was considered to be a stroke alert, however CT noncontrasted brain was negative and her nonfocal appearance was much more suggestive of seizures and stroke, along with the fact that her last seen normal time was significantly delayed. Stat EEG was ordered and she was found to be in status epilepticus. She was emergently intubated due to her poor mental status. I was called immediately down to the bedside for the EEG demonstrating status. At the bedside, I pushed 10 mg of Versed IV 1 and started her on a Versed drip at 10 mg an hour. No information is available from the patient due to her mental status. ROS is unobtainable. The majority of the information I have is obtained from medical record, and in specifically the H&P documented by Dr. Guerra back in October 2017, which is very helpful. In reading through her chart, it appears that when she comes off her Topamax, she goes into status. It appears that she has recently come off Topamax again due to side effects. She is anaphylactically allergic to Keppra and phenytoin, so these are not available to us to use. Versed drip was used successfully in her last admission October 2017, so that is what we have chosen. I have spoken with Dr. Headley who is not only an on-call neurologist but her personal neurologist who sees her frequently, and he agrees with this plan. He also thinks that Vimpat is a good option for seizure control, which I agree with. We will plan to load her with that. 02/11/18: Remains encephalopathy on the vent. No spontaneous movement noted when Versed is held. Will get a repeat EEG today. Wean sedation only if seizure controlled 02/12: Calm now, no convulsive activity. EEG result pending. Midazolam at 10. 02/13: On continuous EEG monitoring, no seizures noted. Versed had been weaned down to 5 mg/h, propofol at 20 mcg/kg/min. Patient does not open eyes or moves spontaneously 02/14: On attempted sedation wean yesterday night patient developed 2 episodes of seizures. Currently no clinical seizures. I discussed with Dr. Headley, will start phenobarbital 90 mg IV every 8 hours. Repeat EEG today. Currently back on 50 mcg/kg/min of propofol, Versed 7 mg per hour 02/15: Remains heavily sedated, started on phenobarbital IV yesterday. Level only 2.8. Will increase dose to 120 mg every 8 hours repeat level in a.m. EEG today pending. No sedation weaning without clearance from Dr. Headley. EEG yesterday showed some left-sided phase reversal. Leukocytosis with bandemia noted, will re culture 02/16: Pt had persistent epileptiform activity on eeg 02/[address] Headley. No sedation vacation until repeat EEG shows resolution. I have updated about this at the bedside. Repeat cultures pending at this time. Check renal ultrasound as the patient had recent hydronephrosis, ureteral stent. Patient remains critically ill in severely encephalopathic due to uncontrolled seizures 02/17: remains deeply sedated for status epilepticus. phenobarb level 55.[address] Headley managing anti-epileptics: very difficult to control seizures as well as difficult medication titration given multiple anaphylactic allergies to anticonvulsants. 02/18: T-max 100. Currently 99.4. Tolerating tube feeding. No bowel movement. 4 days. Remains sedated on midazolam and propofol drips 02/19: T-max 101.6. Currently 99.6. Tolerating tube feeds. 2 problems overnight. Remains on midazolam and propofol drips and phenobarbital, valproic acid and lacosamide 02/20: Afebrile. Propofol increased to 30 mg/kg/min overnight. Suppressing seizures currently. Increasing antiepileptics per neurology. Tolerating tube feeding. Positive BM. 02/21: Afebrile. Off propofol drip. Midazolam drip at 1 mg an hour. No signs of seizure activity on the last 2 EEGs. Tolerating tube feeding. Positive BM. 02/22: Off all sedation. EEG reveals moderate to severe encephalopathy. No epileptiform activity. Blinks eyes. Withdraws to pain in all 4 extremities. 02/23: Again off all sedation. Phenobarbital decreased to 100 mg every 8 hours per neurology. Opens eyes and blinks. Does not follow commands. Quite edematous. SUBJECTIVE: 02/24: Afebrile. Currently on CPAP trial. Opens eyes and blinks. Does not follow commands. Receiving furosemide 40 mg 1 for diuresis. 02/25: T-max 100.4. Patient continues on CPAP trials 27/03.35. Patient not following commands. Patient remains off sedation since 02/22/18. Discussion regarding tracheostomy and PEG placement with family at bedside. 02/26: Patient experienced low-grade temperature last night. Patient tolerated CPAP trials greater than 12 hours yesterday. Plan for tracheostomy and PEG placement today. Noted slight increase in WBC count. Bronchoscopy BAL sputum culture sent post tracheostomy. Phenobarbital and valproic acid levels therapeutic. 02/27: No acute events overnight. The patient's hemoglobin this a.m. was noted to be 6.6 labs repeated consistent with hemoglobin 6.8 the patient is receiving 2 units of packed red blood cells. Patient was noted to be hypocalcemic will receive 2 g calcium gluconate and electrolytes are being repleted. Patient's propofol was discontinued at 1900 on 02/26/18. Patient spontaneously opens eyes to stimulation. Tube feeds resumed post PEG placement. 02/28: Patient opens eyes to stimulation. Complete sedation discontinued since , post tracheostomy and PEG tube placement. CPAP trials in progress. Patient tolerating tube feeds. WBC count slightly elevated, BMP pending. 03/01: Afebrile .WBC count trending down. Patient awake, has spontaneous eye opening, no tracking, not moving extremities. Patient tolerating tube feeds. Continues on CPAP trials Objective Vital Signs Date Time Temp Pulse Resp B/P (MAP) Pulse Ox O2 Delivery O2 Flow Rate FiO2 03/01/18 10:56 99 45 03/01/18 06:00 68 03/01/18 04:00 98.6 16 137/62 (87) Intake and Output 03/01/18 03/01/18 03/02/18 08:00 16:00 00:00 Intake Total 630 ml 105 ml Output Total 1800 ml Balance -1170 ml 105 ml Result Diagram: 03/01/18 0515 03/01/18 0515 Imaging Last Impressions Chest X-Ray 02/27/18 0600 Signed Impressions: Service Date/Time: Tuesday, February 27, 2018 04:51 - CONCLUSION: No significant change. Bautista Wynne MD Renal Ultrasound 02/16/18 0000 Signed Impressions: Service Date/Time: Friday, February 16, 2018 10:17 - CONCLUSION: 1. Unremarkable renal ultrasound examination without evidence for obstructive uropathy. Adin Sanchez MD Head CT 02/10/18 1115 Signed Impressions: Service Date/Time: Saturday, February 10, 2018 12:19 - CONCLUSION: Stable negative noncontrast CT. Mustapha Grossman MD Brain MRI 02/10/18 0000 Signed Impressions: Service Date/Time: Saturday, February 10, 2018 16:30 - CONCLUSION: 1. Stable appearance with no acute hemorrhage, mass or infarction. 2. Moderate atrophic change and stable mild ventricular prominence. Mustapha Grossman MD Last Impressions Chest X-Ray 02/27/18 0600 Signed Impressions: Service Date/Time: Tuesday, February 27, 2018 04:51 - CONCLUSION: No significant change. Bautista Wynne MD Renal Ultrasound 02/16/18 0000 Signed Impressions: Service Date/Time: Friday, February 16, 2018 10:17 - CONCLUSION: 1. Unremarkable renal ultrasound examination without evidence for obstructive uropathy. Adin Sanchez MD Head CT 02/10/18 1115 Signed Impressions: Service Date/Time: Saturday, February 10, 2018 12:19 - CONCLUSION: Stable negative noncontrast CT. Mustapha Grossman MD Brain MRI 02/10/18 0000 Signed Impressions: Service Date/Time: Saturday, February 10, 2018 16:30 - CONCLUSION: 1. Stable appearance with no acute hemorrhage, mass or infarction. 2. Moderate atrophic change and stable mild ventricular prominence. Mustapha Grossman MD Last Impressions Chest X-Ray 02/25/18 0600 Signed Impressions: Service Date/Time: Sunday, February 25, 2018 04:05 - CONCLUSION: 1. Bilateral lower lobe atelectasis versus pneumonia. There has been no significant change when compared to the prior exam. Inder Maria MD Renal Ultrasound 02/16/18 0000 Signed Impressions: Service Date/Time: Friday, February 16, 2018 10:17 - CONCLUSION: 1. Unremarkable renal ultrasound examination without evidence for obstructive uropathy. Adin Sanchez MD Head CT 02/10/18 1115 Signed Impressions: Service Date/Time: Saturday, February 10, 2018 12:19 - CONCLUSION: Stable negative noncontrast CT. Mustapha Grossman MD Brain MRI 02/10/18 0000 Signed Impressions: Service Date/Time: Saturday, February 10, 2018 16:30 - CONCLUSION: 1. Stable appearance with no acute hemorrhage, mass or infarction. 2. Moderate atrophic change and stable mild ventricular prominence. Mustapha Grossman MD Last Impressions Chest X-Ray 02/24/18 0600 Signed Impressions: Service Date/Time: Saturday, February 24, 2018 04:03 - CONCLUSION: 1. Patchy alveolar disease characteristic of edema or pneumonia. There has been no significant change when compared to the prior exam. Bilateral effusions Inder Maria MD Renal Ultrasound 02/16/18 0000 Signed Impressions: Service Date/Time: Friday, February 16, 2018 10:17 - CONCLUSION: 1. Unremarkable renal ultrasound examination without evidence for obstructive uropathy. Adin Sanchez MD Head CT 02/10/18 1115 Signed Impressions: Service Date/Time: Saturday, February 10, 2018 12:19 - CONCLUSION: Stable negative noncontrast CT. Mustapha Grossman MD Brain MRI 02/10/18 0000 Signed Impressions: Service Date/Time: Saturday, February 10, 2018 16:30 - CONCLUSION: 1. Stable appearance with no acute hemorrhage, mass or infarction. 2. Moderate atrophic change and stable mild ventricular prominence. Mustapha Grossman MD Procedures 02/26-PEG placement 02/26-percutaneous tracheostomy Objective Remarks GENERAL: 67-year-old female with generalized anasarca with no sedation , nonresponsive HEENT: Normocephalic. Atraumatic. Pupils 2mm, equal, round, reactive, conjugate. Mucous membranes are moist and pink.. NECK: Trachea is midline. 8.0 Shiley tracheostomy CHEST: Essentially clear to auscultation bilaterally. Equal chest rise CARDIOVASCULAR: RRR. S1, S2 without murmur ABDOMEN: Soft, nontender, obese nondistended. No guarding. PEG site clean dry and intact MUSCULOSKELETAL: Pulses 2+. 2+ peripheral edema NEUROLOGICAL: Does not follow commands. Positive cough. Positive corneal reflex. Withdraws to pain bilateral upper extremities. Upward toes. Spontaneous eye opening to physical stimulation SKIN: Bullous/clear areas bilateral upper extremities right greater than left. Date of Insertion: Feb 25, 2018 Date of Insertion: Feb 17, 2018 Line: PICC Side: Left Location: Antecubital A/P Assessment and Plan Neuro/Psych: Status epilepticus Elevated IOP Acute encephalopathy Continue valproate 500 mg IV every 4 hours. Level currently 41. Continue phenobarbital 100 mg IV every 8 hours. Level currently 35.1 Continue lacosamide 100 mg IV every 8 hours. MRI brain 02/10 revealed mild ventricular enlargement. Atrophy. EEG 02/24 Improved EEG demonstrating mild encephalopathy in sleep state. Clinical correlation. EEG 02/21 revealed moderate encephalopathy. No epileptic activity EEG 02/20 revealed moderate to severe encephalopathy. No epileptiform activity EEG brain 02/18 revealed suppressed platelets. EEG brain 02/16 revealed left frontal central spiking. -EEG 02/15/18 showed persistent seizure activity 02/14 probable phase reversal noted on left side. 02/15 persistent seizures -EEG repeat 02/12 no active seizures. -off sedation since 02/22. Sedated on 02/26 for tracheostomy and PEG placement -Continue ICU care, frequent neuro checks-patient currently off all sedation spontaneous eye opening with stimulation At home on valproic acid 500 mg 3 times daily with 250 mg at night Acetaminophen 650 mg every 6 hours as needed fever Continue bimatoprost 0.01% 1 drop each eye at night with appropriate hospital substitution latanoprost 0.005% 1 drop each eye at night Folic acid and phenobarbital levels-therapeutic limits Resp: Acute respiratory failure/hypoxic and hypercapnic ACV 15/500/5/40 PSV trial 15/5 and 40%, continue Ventilator bundle Albuterol/ipratropium aerosols every 6 hours with albuterol aerosols every 2 hours as needed dyspnea Continue montelukast 10 mg by tube daily Spontaneous breathing trials asa tolerated 02/25 chest x-ray in a.m. -bilateral lobe atelectasis versus pneumonia 02/26 S/P tracheostomy placement CV: Hypertension Dyslipidemia Maintain mean arterial pressure greater than 65 When appropriate lisinopril 20 mg p.o. daily/home medication for hypertension. As needed hydralazine/labetalol and Nitropaste to keep systolic blood pressure less than 170 Continue aspirin 81 mg p.o. daily Hospital no substitution for ezetimibe 10 mg p.o. daily for dyslipidemia GI Hypoalbuminemia OG tube and tube feeds with vital high-protein goal 65 cc/h per nutrition's recommendations Lansoprazole for GI prophylaxis Docusate sodium/senna 1 tablet twice daily for bowel regimen Continue free water 100 mL every 6 hours 02/26 PEG placement : Overactive bladder Recent ureteral stent for hydronephrosis -daily BMP. Sodium slowly improving currently 140 -ICU electrolyte protocol. Keep Mag>2 Renal ultrasound revealed no hydronephrosis 02/16 Currently holding oxybutynin 5 mg daily ID: -UTI with E. coli 02/10 Funguria C. difficile Discontinued cefepime 2 g IV every 8 hours 02/18 with status epilepticus. Discontinue piperacillin/tazobactam day #5 per infectious disease on 02/22 Metronidazole 500 mg by tube 3 times daily for C. difficile, 02/26 micafungin initiated ID following-Dr. Rolle WBC count downtrending Pertinent cultures No growth to date blood cultures 2 and sputum 02/19 02/18 -urine culture -C glabrata 02/15 -UA -no growth 02/15 blood cultures 2 -no growth 02/10 -UA -E. coli HEME: Leukocytosis Macrocytic anemia -Monitor CBC. Follow trend 02/27 hemoglobin 6.8, transfused 2 units packed red blood cell Endo Mild hyperglycemia Hypothyroidism Sliding scale insulin with NovoLog with Accu-Cheks to maintain euglycemia/low regimen every 6 hours TSH was 10.4. Continue levothyroxine to 88 mcg daily Access -Left antecubital PICC line placed 02/17/dual-lumen Prophylaxis -GI -lansoprazole -DVT -SCD/enoxaparin Level 3 follow-up. Discussed with S[employer]W MACHINE REPA[employer]ER at bedside and Mr. Márquez. Case management consulted for possible transfer to [facility]. Physician Gini Sahu MD Mar 01, 2018 12:32
[2018-03-01] MEDS: BACITRACIN TOP OINT 15 GM TUBE TOPICAL SCH ×2 (16:51→22:25)
--- NOTE | 2018-03-01 17:06 | HHI.IDPN ---
Note Infectious Disease Note Patient on T-piece. She opens eyes to voice. No distress. Has positive urine culture. Gram-negative richard. Post tracheostomy 02/26. Afebrile. Rectal bag has a lot of liquid stool output. No seizure activity noted. Presented to the emergency department on 02/10/2018 with acute altered mental status. She was found to be with status epilepticus. In the emergency department, the temperature phyllis to 103 degrees on the evening of admission. She was intubated and EEG has been repeatedly performed and shows that she is continuing to have seizure activity. The patient continues to have fever with temperature spike of 102 early today. She received IV antibiotic treatment for urinary tract infection due to Escherichia coli, which was cultured on admission urine culture. PAST MEDICAL HISTORY: Hypertension, hyperlipidemia, seizure disorder, urinary incontinence, history of back surgery, history of shoulder surgery, hysterectomy, history of knee surgery. ALLERGIES: FLUCONAZOLE, PHENYTOIN, RIFAMPIN, LEVETIRACETAM, HYDROMORPHONE. MEDICATIONS: Current Medications Medications (Trade) Dose Ordered Sig/Tiera Route PRN Reason Start Time Stop Time Status Last Admin Dose Admin Sodium Chloride (NS Flush) 2 ml UNSCH PRN IV FLUSH FLUSH AFTER USING IV ACCESS 02/10/18 11:15 Potassium Chloride 100 ml @ 25 mls/hr Q2H PRN IV For Potassium 2.8 - 3.2 mEq/L 02/10/18 13:15 Potassium Chloride 100 ml @ 50 mls/hr Q2H PRN IV For Potassium 2.8 - 3.2 mEq/L 02/10/18 13:15 02/28/18 05:16 Potassium Bicarb/ Potassium Chloride (K-Lyte Cl Eff) 50 meq UNSCH PRN PO For Potassium 3.3 - 3.5 mEq/L 02/10/18 13:15 02/12/18 09:38 Potassium Chloride 100 ml @ 25 mls/hr UNSCH PRN IV For Potassium 3.3 - 3.5 mEq/L 02/10/18 13:15 Potassium Chloride 100 ml @ 50 mls/hr Q2H PRN IV For Potassium 3.3 - 3.5 mEq/L 02/10/18 13:15 Magnesium Sulfate 4 gm/Sodium Chloride 100 ml @ 50 mls/hr UNSCH PRN IV For Magnesium 0.9 - 1.1 mg/dL 02/10/18 13:15 Magnesium Oxide (Mag-Ox) 800 mg UNSCH PRN PO For Magnesium 1.2 - 1.6 mg/dL 02/10/18 13:15 Magnesium Sulfate 2 gm/Sodium Chloride 100 ml @ 50 mls/hr UNSCH PRN IV For Magnesium 1.2 - 1.6 mg/dL 02/10/18 13:15 Potassium Phosphate (K-Phos) 2,000 mg Q4H PRN PO For Phosphorus < 2.5 mg/dL 02/10/18 13:15 Sodium Phosphate 30 mmol/Sodium Chloride 250 ml @ 42 mls/hr UNSCH PRN IV For Phosphorus < 2.5 mg/dL 02/10/18 13:15 Potassium Phosphate (K-Phos) 2,000 mg UNSCH PRN PO/TUBE SEE LABEL COMMENTS 02/10/18 13:15 Potassium Phosphate 30 mmol/ Sodium Chloride 260 ml @ 42 mls/hr UNSCH PRN IV SEE LABEL COMMENTS 02/10/18 13:15 Chlorhexidine Gluconate (Peridex 0.12% Liq) 15 ml BID@08,20 MT 02/10/18 20:00 03/01/18 09:13 Dextrose (D50w (Vial) Inj) 25 ml UNSCH PRN IV PUSH HYPOGLYCEMIA-SEE COMMENTS 02/10/18 13:15 02/26/18 23:47 Insulin Human Regular (NovoLIN R SUPPLEMENTAL SCALE) 1 Q6HR SQ 02/10/18 18:00 02/25/18 00:00 Ondansetron HCl (Zofran Inj) 4 mg Q6H PRN IV PUSH NAUSEA OR VOMITING 02/10/18 13:15 Miscellaneous Information 1 Q361D XX 02/10/18 13:15 02/10/18 13:15 Chlorhexidine Gluconate (Chlorhexidine 2% Cloth) Taper DAILY@04 TOP 02/11/18 04:00 02/07/19 03:59 03/01/18 04:00 Chlorhexidine Gluconate (Chlorhexidine 2% Cloth) 3 pack UNSCH PRN TOP HYGIENIC CARE 02/10/18 13:15 Senna/Docusate Sodium (Anahi-Colace) 1 tab BID PO 02/10/18 21:00 02/28/18 20:17 Magnesium Hydroxide (Milk Of Magnesia Liq) 30 ml Q12H PRN PO Mild constipation 02/10/18 13:15 Sennosides (Senokot) 17.2 mg Q12H PRN PO Moderate constipation 02/10/18 13:15 Bisacodyl (Dulcolax Supp) 10 mg DAILY PRN RECTAL SEVERE CONSITIPATION 02/10/18 13:15 Lactulose (Lactulose Liq) 30 ml DAILY PRN PO SEVERE CONSITIPATION 02/10/18 13:15 Midazolam HCl 100 ml @ 2 mls/hr TITRATE PRN IV SEDATION 02/10/18 14:15 Future Hold 02/20/18 08:30 Lorazepam (Ativan Inj) 2 mg Q1H PRN IV PUSH seizures 02/11/18 15:00 02/14/18 01:48 Lacosamide 100 mg/ Sodium Chloride 110 ml @ 110 mls/hr Q8H IV 02/15/18 12:00 03/01/18 16:45 Sodium Chloride (NS Flush) See Protocol DAILY IV FLUSH 02/18/18 09:00 03/01/18 09:12 Sodium Chloride (NS Flush) See Protocol UNSCH PRN IV FLUSH SEE PROTOCOL TABLE 02/17/18 17:45 Heparin Sodium (Porcine) (Heparin Central Flush) See Protocol DAILY IV FLUSH 02/18/18 09:00 03/01/18 09:11 Heparin Sodium (Porcine) (Heparin Central Flush) See Protocol UNSCH PRN IV FLUSH SEE PROTOCOL TABLE 02/17/18 17:45 02/28/18 17:34 Sodium Chloride (NS Flush) UNSCH PRN IV FLUSH SEE PROTOCOL TABLE 02/17/18 17:45 02/23/18 15:11 Acetaminophen (Tylenol 650 Mg/ 20 ml Liq) 650 mg Q6H PRN PO fever 02/18/18 09:30 02/26/18 01:21 Artificial Tears (Tears Naturale Opth Soln) 1 drop Q8HR EACH EYE 02/18/18 14:00 03/01/18 16:50 Albuterol Sulfate (Albuterol Neb) 2.5 mg Q2HR NEB PRN NEB dyspnea 02/18/18 09:30 02/28/18 08:37 Labetalol HCl (Trandate Inj) 10 mg Q1H PRN IV PUSH SBP>170, DBP>90 02/18/18 09:30 02/27/18 16:31 Lansoprazole (Prevacid Odt) 30 mg DAILY NG 02/19/18 09:00 03/01/18 09:13 Montelukast Sodium (Singulair) 10 mg HS PO 02/18/18 21:00 02/28/18 20:17 Latanoprost (Xalatan 0.005% Opth Soln) 1 drop HS EACH EYE 02/18/18 21:00 02/28/18 20:34 Nitroglycerin (Nitroglycerin 2% Oint) 2 inch Q6HR PRN TOPICAL SBP>160, DBP>90 02/18/18 13:15 Hydralazine HCl (Apresoline Inj) 10 mg Q1HR PRN IV PUSH SBP>160, DBP>90 02/18/18 13:15 02/28/18 04:19 Terbutaline Sulfate (Brethine Inj) 1 mg UNSCH PRN SQ For Extravasation 02/18/18 18:45 Levothyroxine Sodium (Synthroid) 88 mcg DAILY@0600 PO 02/20/18 06:00 03/01/18 05:35 Valproate Sodium 500 mg/Sodium Chloride 105 ml @ 105 mls/hr Q4HR IV 02/19/18 20:00 03/01/18 16:46 Bacitracin (Baciguent Oint) 1 applic Q12HR TOPICAL 02/21/18 21:00 03/01/18 16:51 Metronidazole (Flagyl) 500 mg Q8HR PO 02/22/18 14:00 03/01/18 16:49 Phenobarbital Sodium (Luminal Inj) 100 mg Q8H IV 02/24/18 02:00 03/01/18 16:47 Lisinopril (Prinivil) 10 mg BID PO 02/24/18 21:00 03/01/18 09:09 Micafungin Sodium 100 mg/Sodium Chloride 100 ml @ 100 mls/hr Q24H IV 02/26/18 23:00 03/01/18 00:00 Albuterol/ Ipratropium (Duoneb Neb) 1 ampule Q6HR NEB NEB 02/28/18 10:00 03/01/18 16:12 Furosemide (Lasix Inj) 40 mg BID@ IV PUSH 02/28/18 09:00 03/01/18 16:46 Objective: Vital Signs Date Time Temp Pulse Resp B/P (MAP) Pulse Ox O2 Delivery O2 Flow Rate FiO2 02/26/18 16:45 100 45 02/26/18 13:11 98 50 02/26/18 09:00 96 60 02/26/18 09:00 100 100 02/26/18 06:00 80 02/26/18 04:07 94 40 02/26/18 04:00 80 02/26/18 04:00 35 02/26/18 04:00 99.2 77 16 134/60 (84) 94 02/26/18 02:00 87 02/26/18 00:23 94 40 02/26/18 00:00 89 02/26/18 00:00 35 02/26/18 00:00 100.4 90 16 124/58 (80) 93 02/25/18 22:00 92 02/25/18 21:04 93 40 02/25/18 20:00 100.3 96 13 136/64 (88) 93 02/25/18 20:00 96 02/25/18 20:00 35 Laboratory Tests Test 02/27/18 05:00 02/27/18 06:45 02/27/18 20:30 02/28/18 05:00 White Blood Count 9.9 TH/MM3 9.7 TH/MM3 12.1 TH/MM3 Red Blood Count 1.93 MIL/MM3 1.98 MIL/MM3 2.99 MIL/MM3 Hemoglobin 6.6 GM/DL 6.8 GM/DL 10.7 GM/DL 9.7 GM/DL Hematocrit 19.6 % 21.8 % 31.7 % 28.4 % Mean Corpuscular Volume 101.9 FL 110.1 FL 94.9 FL Mean Corpuscular Hemoglobin 34.2 PG 34.1 PG 32.3 PG Mean Corpuscular Hemoglobin Concent 33.5 % 31.0 % 34.0 % Red Cell Distribution Width 16.2 % 18.0 % 20.4 % Platelet Count 329 TH/MM3 336 TH/MM3 302 TH/MM3 Mean Platelet Volume 7.9 FL 8.4 FL 8.0 FL Neutrophils (%) (Auto) 67.1 % Lymphocytes (%) (Auto) 22.9 % Monocytes (%) (Auto) 8.5 % Eosinophils (%) (Auto) 0.9 % Basophils (%) (Auto) 0.6 % Neutrophils # (Auto) 6.6 TH/MM3 Lymphocytes # (Auto) 2.3 TH/MM3 Monocytes # (Auto) 0.8 TH/MM3 Eosinophils # (Auto) 0.1 TH/MM3 Basophils # (Auto) 0.1 TH/MM3 CBC Comment DIFF FINAL Differential Comment Test 02/28/18 14:00 White Blood Count 12.7 TH/MM3 Red Blood Count 3.85 MIL/MM3 Hemoglobin 12.1 GM/DL Hematocrit 36.5 % Mean Corpuscular Volume 94.9 FL Mean Corpuscular Hemoglobin 31.4 PG Mean Corpuscular Hemoglobin Concent 33.1 % Red Cell Distribution Width 20.3 % Platelet Count 314 TH/MM3 Mean Platelet Volume 8.1 FL Laboratory Tests Test 02/27/18 05:00 02/27/18 18:25 02/28/18 14:00 Blood Urea Nitrogen 16 MG/DL 15 MG/DL Creatinine 0.26 MG/DL 0.42 MG/DL Random Glucose 75 MG/DL 137 MG/DL Total Protein 5.1 GM/DL Calcium Level 6.6 MG/DL 8.6 MG/DL Phosphorus Level 2.7 MG/DL 3.3 MG/DL Magnesium Level 1.7 MG/DL 2.0 MG/DL Sodium Level 148 MEQ/L 142 MEQ/L Potassium Level 3.0 MEQ/L 3.1 MEQ/L 3.9 MEQ/L Chloride Level 119 MEQ/L 107 MEQ/L Carbon Dioxide Level 20.8 MEQ/L 26.3 MEQ/L Anion Gap 8 MEQ/L 9 MEQ/L Estimat Glomerular Filtration Rate 261 ML/MIN 150 ML/MIN Protein Corrected Calcium 7.6 MG/DL Imaging: Chest X-Ray 02/27/18 0600 Signed Impressions: Service Date/Time: Tuesday, February 27, 2018 04:51 - CONCLUSION: No significant change. Bautista Wynne MD Chest X-Ray 02/27/18 0000 Signed Impressions: Service Date/Time: Tuesday, February 27, 2018 17:12 - CONCLUSION: Increasing airspace disease especially in the left lung. No other significant change. Ken Avila MD Chest X-Ray 02/27/18 0600 Signed Impressions: Service Date/Time: Tuesday, February 27, 2018 04:51 - CONCLUSION: No significant change. Bautista Wynne MD Chest X-Ray 02/27/18 0000 Signed Impressions: Service Date/Time: Tuesday, February 27, 2018 17:12 - CONCLUSION: Increasing airspace disease especially in the left lung. No other significant change. Ken Avila MD Chest X-Ray 02/26/18 0600 Signed Impressions: Service Date/Time: Monday, February 26, 2018 04:14 - CONCLUSION: No significant change. Bautista Wynne MD Chest X-Ray 02/26/18 0000 Signed Impressions: Service Date/Time: Monday, February 26, 2018 10:46 - CONCLUSION: 1. Tracheostomy good position. No pneumothorax. 2. Persistent bilateral lower lung zone airspace disease and associated pleural effusions. dAin Sanchez MD Chest X-Ray 02/25/18 0600 Signed Impressions: Service Date/Time: Sunday, February 25, 2018 04:05 - CONCLUSION: 1. Bilateral lower lobe atelectasis versus pneumonia. There has been no significant change when compared to the prior exam. Inder Maria MD Chest X-Ray 02/24/18 0600 Signed Impressions: Service Date/Time: Saturday, February 24, 2018 04:03 - CONCLUSION: 1. Patchy alveolar disease characteristic of edema or pneumonia. There has been no significant change when compared to the prior exam. Bilateral effusions Inder Maria MD PHYSICAL EXAMINATION: GENERAL: Patient is sedated. No acute distress. HEENT: No icterus. NECK: Supple, no adenopathy. LUNGS: Decreased breath sounds. No audible rhonchi. HEART: Regular S1 and S2, without audible murmurs, rubs or gallops. ABDOMEN: Obese, soft, positive bowel sounds. EXTREMITIES: Diffuse edema blisters on the arms are drying up. SKIN: No diffuse rash. NEUROLOGIC: Unable to assess. PSYCHIATRIC: Unable to assess. IMPRESSION: 1. Fever in patient with status epilepticus. Temperature improved. Now has low-grade. 2. Urinary tract infection due to Kathy. Urine culture now has gram- negative richard. Urinary infection is likely due to indwelling Ardon catheter which the patient appears to need at this time. 3. C. difficile colitis. 4. Acute respiratory failure. Probable pneumonia. Sputum culture has normal beka. Chest x-ray without acute infiltrate. 5. Probable sepsis. Blood cultures no growth. RECOMMENDATIONS: 1. Continue to treat the C. difficile with metronidazole. 2. Continue micafungin. 3. Change the Ardon catheter. Hold off on additional antibiotics for the urine at this time. However monitor the urine culture ID and sensitivity. 4. Monitor white blood cell count. 5. Monitor clinical status. Irving Rolle MD Mar 01, 2018 17:06
[2018-03-01] MEDS: MONTELUKAST SODIUM 10 MG TAB PO SCH (22:24)
[2018-03-01] MEDS: LATANOPROST 0.005% OPHT SOLN 2.5 ML BTL EACH EYE SCH (22:24)
[2018-03-01] MEDS: MICAFUNGIN 100 MG/NS 100 ML IV SCH ×4 (22:25)
[2018-03-02] VITALS (19 sets, daily range): BP systolic 112–157; BP diastolic 53–90; PULSE 73–83; RESP 16–24; TEMP 98.3–99.2; O2SAT 94–100
[2018-03-02] MEDS: PHENobarbital SOD 130 MG/ML VIAL IV SCH ×3 (01:06→17:37)
[2018-03-02] MEDS: VALPROATE INJ 500 MG in SODIUM CHLORIDE 0.9% INJ 100 ML IV SCH ×7 (01:06→23:20)
[2018-03-02] MEDS: CHLORHEXIDINE GLUCONATE 2 % 1 PACK (2 CLOTHS) TOP SCH (04:00)
[2018-03-02] MEDS: LACOSAMIDE INJ 100 MG in SODIUM CHLORIDE 0.9% INJ 100 ML IV SCH ×3 (04:00→20:21)
[2018-03-02] MEDS: RESP: ALBUTEROL 2.5 MG/IPRATROPIUM 0.5 MG NEB (SCH) NEB ×4 (04:07→20:43)
[2018-03-02] MEDS: LEVOTHYROXINE SODIUM 88 MCG TAB PO SCH (06:00)
[2018-03-02] MEDS: INSULIN NovoLIN REGULAR SUPPLEMENTAL SCALE SQ SCH ×4 (06:00→23:22)
[2018-03-02] MEDS: metroNIDAZOLE 500 MG TAB PO SCH ×3 (06:00→23:20)
[2018-03-02] MEDS: ARTIFICIAL TEARS OPTH SOLN 15 ML BTL EACH EYE SCH ×3 (06:00→20:23)
--- NOTE | 2018-03-02 10:06 | HHI.CCPN ---
Subjective Remarks/Hospital Course This is a 67-year-old female with a history of poorly controlled seizures who presents with acute altered mental status. She was last seen normal at 3 AM this morning. Initially she was considered to be a stroke alert, however CT noncontrasted brain was negative and her nonfocal appearance was much more suggestive of seizures and stroke, along with the fact that her last seen normal time was significantly delayed. Stat EEG was ordered and she was found to be in status epilepticus. She was emergently intubated due to her poor mental status. I was called immediately down to the bedside for the EEG demonstrating status. At the bedside, I pushed 10 mg of Versed IV 1 and started her on a Versed drip at 10 mg an hour. No information is available from the patient due to her mental status. ROS is unobtainable. The majority of the information I have is obtained from medical record, and in specifically the H&P documented by Dr. Guerra back in October 2017, which is very helpful. In reading through her chart, it appears that when she comes off her Topamax, she goes into status. It appears that she has recently come off Topamax again due to side effects. She is anaphylactically allergic to Keppra and phenytoin, so these are not available to us to use. Versed drip was used successfully in her last admission October 2017, so that is what we have chosen. I have spoken with Dr. Headley who is not only an on-call neurologist but her personal neurologist who sees her frequently, and he agrees with this plan. He also thinks that Vimpat is a good option for seizure control, which I agree with. We will plan to load her with that. 02/11/18: Remains encephalopathy on the vent. No spontaneous movement noted when Versed is held. Will get a repeat EEG today. Wean sedation only if seizure controlled 02/12: Calm now, no convulsive activity. EEG result pending. Midazolam at 10. 02/13: On continuous EEG monitoring, no seizures noted. Versed had been weaned down to 5 mg/h, propofol at 20 mcg/kg/min. Patient does not open eyes or moves spontaneously 02/14: On attempted sedation wean yesterday night patient developed 2 episodes of seizures. Currently no clinical seizures. I discussed with Dr. Headley, will start phenobarbital 90 mg IV every 8 hours. Repeat EEG today. Currently back on 50 mcg/kg/min of propofol, Versed 7 mg per hour 02/15: Remains heavily sedated, started on phenobarbital IV yesterday. Level only 2.8. Will increase dose to 120 mg every 8 hours repeat level in a.m. EEG today pending. No sedation weaning without clearance from Dr. Headley. EEG yesterday showed some left-sided phase reversal. Leukocytosis with bandemia noted, will re culture 02/16: Pt had persistent epileptiform activity on eeg 02/[address] Headley. No sedation vacation until repeat EEG shows resolution. I have updated about this at the bedside. Repeat cultures pending at this time. Check renal ultrasound as the patient had recent hydronephrosis, ureteral stent. Patient remains critically ill in severely encephalopathic due to uncontrolled seizures 02/17: remains deeply sedated for status epilepticus. phenobarb level 55.[address] Headley managing anti-epileptics: very difficult to control seizures as well as difficult medication titration given multiple anaphylactic allergies to anticonvulsants. 02/18: T-max 100. Currently 99.4. Tolerating tube feeding. No bowel movement. 4 days. Remains sedated on midazolam and propofol drips 02/19: T-max 101.6. Currently 99.6. Tolerating tube feeds. 2 problems overnight. Remains on midazolam and propofol drips and phenobarbital, valproic acid and lacosamide 02/20: Afebrile. Propofol increased to 30 mg/kg/min overnight. Suppressing seizures currently. Increasing antiepileptics per neurology. Tolerating tube feeding. Positive BM. 02/21: Afebrile. Off propofol drip. Midazolam drip at 1 mg an hour. No signs of seizure activity on the last 2 EEGs. Tolerating tube feeding. Positive BM. 02/22: Off all sedation. EEG reveals moderate to severe encephalopathy. No epileptiform activity. Blinks eyes. Withdraws to pain in all 4 extremities. 02/23: Again off all sedation. Phenobarbital decreased to 100 mg every 8 hours per neurology. Opens eyes and blinks. Does not follow commands. Quite edematous. SUBJECTIVE: 02/24: Afebrile. Currently on CPAP trial. Opens eyes and blinks. Does not follow commands. Receiving furosemide 40 mg 1 for diuresis. 02/25: T-max 100.4. Patient continues on CPAP trials 27/03.35. Patient not following commands. Patient remains off sedation since 02/22/18. Discussion regarding tracheostomy and PEG placement with family at bedside. 02/26: Patient experienced low-grade temperature last night. Patient tolerated CPAP trials greater than 12 hours yesterday. Plan for tracheostomy and PEG placement today. Noted slight increase in WBC count. Bronchoscopy BAL sputum culture sent post tracheostomy. Phenobarbital and valproic acid levels therapeutic. 02/27: No acute events overnight. The patient's hemoglobin this a.m. was noted to be 6.6 labs repeated consistent with hemoglobin 6.8 the patient is receiving 2 units of packed red blood cells. Patient was noted to be hypocalcemic will receive 2 g calcium gluconate and electrolytes are being repleted. Patient's propofol was discontinued at 1900 on 02/26/18. Patient spontaneously opens eyes to stimulation. Tube feeds resumed post PEG placement. 02/28: Patient opens eyes to stimulation. Complete sedation discontinued since , post tracheostomy and PEG tube placement. CPAP trials in progress. Patient tolerating tube feeds. WBC count slightly elevated, BMP pending. 03/01: Afebrile .WBC count trending down. Patient awake, has spontaneous eye opening, no tracking, not moving extremities. Patient tolerating tube feeds. Continues on CPAP trials 03/02 No events overnight. On ventilator via trach. Afebrile. Objective Vital Signs Date Time Temp Pulse Resp B/P (MAP) Pulse Ox O2 Delivery O2 Flow Rate FiO2 03/02/18 08:24 100 35 03/02/18 08:00 98.3 80 16 157/90 (112) Intake and Output 03/02/18 03/02/18 03/03/18 08:00 16:00 00:00 Intake Total 2811 ml Output Total 625 ml Balance 2186 ml Result Diagram: 03/01/18 0515 03/01/18 0515 Imaging Last Impressions Chest X-Ray 02/27/18 0600 Signed Impressions: Service Date/Time: Tuesday, February 27, 2018 04:51 - CONCLUSION: No significant change. Bautista Wynne MD Renal Ultrasound 02/16/18 0000 Signed Impressions: Service Date/Time: Friday, February 16, 2018 10:17 - CONCLUSION: 1. Unremarkable renal ultrasound examination without evidence for obstructive uropathy. Adin Sanchez MD Head CT 02/10/18 1115 Signed Impressions: Service Date/Time: Saturday, February 10, 2018 12:19 - CONCLUSION: Stable negative noncontrast CT. Mustapha Grossman MD Brain MRI 02/10/18 0000 Signed Impressions: Service Date/Time: Saturday, February 10, 2018 16:30 - CONCLUSION: 1. Stable appearance with no acute hemorrhage, mass or infarction. 2. Moderate atrophic change and stable mild ventricular prominence. Mustapha Grossman MD Last Impressions Chest X-Ray 02/27/18 0600 Signed Impressions: Service Date/Time: Tuesday, February 27, 2018 04:51 - CONCLUSION: No significant change. Bautista Wynne MD Renal Ultrasound 02/16/18 0000 Signed Impressions: Service Date/Time: Friday, February 16, 2018 10:17 - CONCLUSION: 1. Unremarkable renal ultrasound examination without evidence for obstructive uropathy. Adin Sanchez MD Head CT 02/10/18 1115 Signed Impressions: Service Date/Time: Saturday, February 10, 2018 12:19 - CONCLUSION: Stable negative noncontrast CT. Mustapha Grossman MD Brain MRI 02/10/18 0000 Signed Impressions: Service Date/Time: Saturday, February 10, 2018 16:30 - CONCLUSION: 1. Stable appearance with no acute hemorrhage, mass or infarction. 2. Moderate atrophic change and stable mild ventricular prominence. Mustapha Grossman MD Last Impressions Chest X-Ray 02/25/18 0600 Signed Impressions: Service Date/Time: Sunday, February 25, 2018 04:05 - CONCLUSION: 1. Bilateral lower lobe atelectasis versus pneumonia. There has been no significant change when compared to the prior exam. Inder Maria MD Renal Ultrasound 02/16/18 0000 Signed Impressions: Service Date/Time: Friday, February 16, 2018 10:17 - CONCLUSION: 1. Unremarkable renal ultrasound examination without evidence for obstructive uropathy. Adin Sanchez MD Head CT 02/10/18 1115 Signed Impressions: Service Date/Time: Saturday, February 10, 2018 12:19 - CONCLUSION: Stable negative noncontrast CT. Mustapha Grossman MD Brain MRI 02/10/18 0000 Signed Impressions: Service Date/Time: Saturday, February 10, 2018 16:30 - CONCLUSION: 1. Stable appearance with no acute hemorrhage, mass or infarction. 2. Moderate atrophic change and stable mild ventricular prominence. Mustapha Grossman MD Last Impressions Chest X-Ray 02/24/18 0600 Signed Impressions: Service Date/Time: Saturday, February 24, 2018 04:03 - CONCLUSION: 1. Patchy alveolar disease characteristic of edema or pneumonia. There has been no significant change when compared to the prior exam. Bilateral effusions Inder Maria MD Renal Ultrasound 02/16/18 0000 Signed Impressions: Service Date/Time: Friday, February 16, 2018 10:17 - CONCLUSION: 1. Unremarkable renal ultrasound examination without evidence for obstructive uropathy. Adin Sanchez MD Head CT 02/10/18 1115 Signed Impressions: Service Date/Time: Saturday, February 10, 2018 12:19 - CONCLUSION: Stable negative noncontrast CT. Mustapha Grossman MD Brain MRI 02/10/18 0000 Signed Impressions: Service Date/Time: Saturday, February 10, 2018 16:30 - CONCLUSION: 1. Stable appearance with no acute hemorrhage, mass or infarction. 2. Moderate atrophic change and stable mild ventricular prominence. Mustapha Grossman MD Procedures 02/26-PEG placement 02/26-percutaneous tracheostomy Objective Remarks GENERAL: 67-year-old female with generalized anasarca with no sedation , nonresponsive HEENT: Normocephalic. Atraumatic. Pupils 2mm, equal, round, reactive, conjugate. Mucous membranes are moist and pink.. NECK: Trachea is midline. 8.0 Shiley tracheostomy CHEST: Essentially clear to auscultation bilaterally. Equal chest rise CARDIOVASCULAR: RRR. S1, S2 without murmur ABDOMEN: Soft, nontender, obese nondistended. No guarding. PEG site clean dry and intact MUSCULOSKELETAL: Pulses 2+. 2+ peripheral edema NEUROLOGICAL: Does not follow commands. Positive cough. Positive corneal reflex. Withdraws to pain bilateral upper extremities. Upward toes. Spontaneous eye opening to physical stimulation SKIN: Bullous/clear areas bilateral upper extremities right greater than left. Date of Insertion: Feb 25, 2018 Date of Insertion: Feb 17, 2018 Line: PICC Side: Left Location: Antecubital A/P Assessment and Plan Neuro/Psych: Status epilepticus Elevated IOP Acute encephalopathy Continue antiseizure meds per neuro-valproate, phenobarbital , lacosamide MRI brain 02/10 revealed mild ventricular enlargement. Atrophy. EEG 02/24 Improved EEG demonstrating mild encephalopathy in sleep state. Clinical correlation. EEG 02/21 revealed moderate encephalopathy. No epileptic activity EEG 02/20 revealed moderate to severe encephalopathy. No epileptiform activity EEG brain 02/18 revealed suppressed platelets. EEG brain 02/16 revealed left frontal central spiking. -EEG 02/15/18 showed persistent seizure activity 02/14 probable phase reversal noted on left side. 02/15 persistent seizures -EEG repeat 02/12 no active seizures. -off sedation since 02/22. -Continue ICU care, frequent neuro checks-patient currently off all sedation spontaneous eye opening with stimulation At home on valproic acid 500 mg 3 times daily with 250 mg at night Acetaminophen 650 mg every 6 hours as needed fever Continue bimatoprost 0.01% 1 drop each eye at night with appropriate hospital substitution latanoprost 0.005% 1 drop each eye at night Resp: Acute respiratory failure/hypoxic and hypercapnic Continue with vent support keep sats >92% ACV 15/500/5/40 Ventilator bundle Albuterol/ipratropium aerosols every 6 hours with albuterol aerosols every 2 hours as needed dyspnea Pulm toilet , trach care Continue montelukast 10 mg by tube daily Spontaneous breathing trials as tolerated 02/26 S/P tracheostomy placement CXR 02/27- unchanged CV: Hypertension Dyslipidemia Monitor HR abd BP keep MAP>65mmHg As needed hydralazine/labetalol and Nitropaste to keep systolic blood pressure less than 170 Continue aspirin 81 mg p.o. daily GI Hypoalbuminemia OG tube and tube feeds with vital high-protein goal 65 cc/h per nutrition's recommendations Lansoprazole for GI prophylaxis Docusate sodium/senna 1 tablet twice daily for bowel regimen 02/26 PEG placement : Overactive bladder Recent ureteral stent for hydronephrosis -Monitor renal function, electrolytes replacement per protocol -On Lasix 40mg BID Renal ultrasound revealed no hydronephrosis 02/16 ID: -UTI with E. coli 02/10 Funguria C. difficile Metronidazole 500 mg by tube 3 times daily for C. difficile, 02/26 micafungin initiated ID following-Dr. Rolle WBC count downtrending Pertinent cultures 02/28 Urine: GNR No growth to date blood cultures 2 and sputum 02/19 02/18 -urine culture -C glabrata 02/15 -UA -no growth 02/15 blood cultures 2 -no growth 02/10 -UA -E. coli HEME: Leukocytosis Macrocytic anemia -Monitor CBC. Endo Mild hyperglycemia Hypothyroidism Sliding scale insulin with NovoLog with Accu-Cheks to maintain euglycemia/low regimen every 6 hours TSH was 10.4. Continue levothyroxine to 88 mcg daily Access -Left antecubital PICC line placed 02/17/dual-lumen Prophylaxis -GI -lansoprazole -DVT -SCD/enoxaparin Check labs today Level 2 follow-up. Case management consulted for possible transfer to [facility]. Frankie Mark MD Mar 02, 2018 10:06
[2018-03-02] MEDS: FUROSEMIDE 40 MG/4 ML VIAL IV PUSH SCH ×2 (10:14→17:38)
[2018-03-02] MEDS: LANSOPRAZOLE SOLUTAB 30 MG TAB NG SCH (10:14)
[2018-03-02] MEDS: LISINOPRIL 10 MG TAB PO SCH ×2 (10:14→20:23)
[2018-03-02] MEDS: DOCUSATE SODIUM 50 MG/SENNA 8.6 MG TAB PO SCH ×2 (10:14→20:23)
[2018-03-02] MEDS: SODIUM CHLORIDE 0.9% FLUSH 10 ML FLUSH IV FLUSH SCH (10:15)
[2018-03-02] MEDS: CHLORHEXIDINE 0.12% (ORAL KIT) 15 ML CUP MT SCH ×2 (10:29→20:22)
[2018-03-02 11:05] LABS: AUTOMATED NEUTROPHIL # 7.9 TH/MM3 (1.8-7.7); BASOPHIL % 0.1 % (0.0-2.0); EOSINOPHIL # 0.2 TH/MM3 (0-0.4); HEMATOCRIT 30.8 % (35.0-46.0); HEMOGLOBIN 10.3 GM/DL (11.6-15.3); LYMPH % 18.3 % (9.0-44.0); MEAN CORPUSCULAR HEMOGLOBIN 32.3 PG (27.0-34.0); MEAN CORPUSCULAR HGB CONC 33.3 % (32.0-36.0); MEAN PLATELET VOLUME 8.1 FL (7.0-11.0); MONO % 7.6 % (0.0-8.0); MONOCYTE # 0.8 TH/MM3 (0-0.9); PLATELET COUNT 293 TH/MM3 (150-450); RED BLOOD COUNT 3.17 MIL/MM3 (4.00-5.30); RED CELL DISTRIBUTION WIDTH 19.5 % (11.6-17.2)
[2018-03-02 11:25] LABS: BICARBONATE 30.4 MEQ/L (21.0-32.0); CALCIUM 8.1 MG/DL (8.5-10.1); CREATININE 0.3 MG/DL (0.50-1.00)
[2018-03-02] MEDS: BACITRACIN TOP OINT 15 GM TUBE TOPICAL SCH ×2 (11:33→20:23)
--- NOTE | 2018-03-02 13:31 | HHI.IDPN ---
Note Infectious Disease Note Patient on T-piece. No distress. Post tracheostomy 02/26. Afebrile. Urine culture is E. coli. Ardon catheter changed. Rectal bag has a lot of liquid stool output. No seizure activity noted. Presented to the emergency department on 02/10/2018 with acute altered mental status. She was found to be with status epilepticus. In the emergency department, the temperature phyllis to 103 degrees on the evening of admission. She was intubated and EEG has been repeatedly performed and shows that she is continuing to have seizure activity. The patient continues to have fever with temperature spike of 102 early today. She received IV antibiotic treatment for urinary tract infection due to Escherichia coli, which was cultured on admission urine culture. PAST MEDICAL HISTORY: Hypertension, hyperlipidemia, seizure disorder, urinary incontinence, history of back surgery, history of shoulder surgery, hysterectomy, history of knee surgery. ALLERGIES: FLUCONAZOLE, PHENYTOIN, RIFAMPIN, LEVETIRACETAM, HYDROMORPHONE. MEDICATIONS: Current Medications Medications (Trade) Dose Ordered Sig/Tiera Route PRN Reason Start Time Stop Time Status Last Admin Dose Admin Sodium Chloride (NS Flush) 2 ml UNSCH PRN IV FLUSH FLUSH AFTER USING IV ACCESS 02/10/18 11:15 Potassium Chloride 100 ml @ 25 mls/hr Q2H PRN IV For Potassium 2.8 - 3.2 mEq/L 02/10/18 13:15 Potassium Chloride 100 ml @ 50 mls/hr Q2H PRN IV For Potassium 2.8 - 3.2 mEq/L 02/10/18 13:15 02/28/18 05:16 Potassium Bicarb/ Potassium Chloride (K-Lyte Cl Eff) 50 meq UNSCH PRN PO For Potassium 3.3 - 3.5 mEq/L 02/10/18 13:15 02/12/18 09:38 Potassium Chloride 100 ml @ 25 mls/hr UNSCH PRN IV For Potassium 3.3 - 3.5 mEq/L 02/10/18 13:15 Potassium Chloride 100 ml @ 50 mls/hr Q2H PRN IV For Potassium 3.3 - 3.5 mEq/L 02/10/18 13:15 Magnesium Sulfate 4 gm/Sodium Chloride 100 ml @ 50 mls/hr UNSCH PRN IV For Magnesium 0.9 - 1.1 mg/dL 02/10/18 13:15 Magnesium Oxide (Mag-Ox) 800 mg UNSCH PRN PO For Magnesium 1.2 - 1.6 mg/dL 02/10/18 13:15 Magnesium Sulfate 2 gm/Sodium Chloride 100 ml @ 50 mls/hr UNSCH PRN IV For Magnesium 1.2 - 1.6 mg/dL 02/10/18 13:15 Potassium Phosphate (K-Phos) 2,000 mg Q4H PRN PO For Phosphorus < 2.5 mg/dL 02/10/18 13:15 Sodium Phosphate 30 mmol/Sodium Chloride 250 ml @ 42 mls/hr UNSCH PRN IV For Phosphorus < 2.5 mg/dL 02/10/18 13:15 Potassium Phosphate (K-Phos) 2,000 mg UNSCH PRN PO/TUBE SEE LABEL COMMENTS 02/10/18 13:15 Potassium Phosphate 30 mmol/ Sodium Chloride 260 ml @ 42 mls/hr UNSCH PRN IV SEE LABEL COMMENTS 02/10/18 13:15 Chlorhexidine Gluconate (Peridex 0.12% Liq) 15 ml BID@08,20 MT 02/10/18 20:00 03/02/18 10:29 Dextrose (D50w (Vial) Inj) 25 ml UNSCH PRN IV PUSH HYPOGLYCEMIA-SEE COMMENTS 02/10/18 13:15 02/26/18 23:47 Insulin Human Regular (NovoLIN R SUPPLEMENTAL SCALE) 1 Q6HR SQ 02/10/18 18:00 02/25/18 00:00 Ondansetron HCl (Zofran Inj) 4 mg Q6H PRN IV PUSH NAUSEA OR VOMITING 02/10/18 13:15 Miscellaneous Information 1 Q361D XX 02/10/18 13:15 02/10/18 13:15 Chlorhexidine Gluconate (Chlorhexidine 2% Cloth) 3 pack Taper DAILY@04 TOP 02/11/18 04:00 02/07/19 03:59 03/01/18 04:00 Chlorhexidine Gluconate (Chlorhexidine 2% Cloth) 3 pack UNSCH PRN TOP HYGIENIC CARE 02/10/18 13:15 Senna/Docusate Sodium (Anahi-Colace) 1 tab BID PO 02/10/18 21:00 03/02/18 10:14 Magnesium Hydroxide (Milk Of Magnesia Liq) 30 ml Q12H PRN PO Mild constipation 02/10/18 13:15 Sennosides (Senokot) 17.2 mg Q12H PRN PO Moderate constipation 02/10/18 13:15 Bisacodyl (Dulcolax Supp) 10 mg DAILY PRN RECTAL SEVERE CONSITIPATION 02/10/18 13:15 Lactulose (Lactulose Liq) 30 ml DAILY PRN PO SEVERE CONSITIPATION 02/10/18 13:15 Midazolam HCl 100 ml @ 2 mls/hr TITRATE PRN IV SEDATION 02/10/18 14:15 Future Hold 02/20/18 08:30 Lorazepam (Ativan Inj) 2 mg Q1H PRN IV PUSH seizures 02/11/18 15:00 02/14/18 01:48 Lacosamide 100 mg/ Sodium Chloride 110 ml @ 110 mls/hr Q8H IV 02/15/18 12:00 03/02/18 11:21 Sodium Chloride (NS Flush) See Protocol DAILY IV FLUSH 02/18/18 09:00 03/02/18 10:15 Sodium Chloride (NS Flush) See Protocol UNSCH PRN IV FLUSH SEE PROTOCOL TABLE 02/17/18 17:45 Heparin Sodium (Porcine) (Heparin Central Flush) See Protocol DAILY IV FLUSH 02/18/18 09:00 03/02/18 10:16 Heparin Sodium (Porcine) (Heparin Central Flush) See Protocol UNSCH PRN IV FLUSH SEE PROTOCOL TABLE 02/17/18 17:45 02/28/18 17:34 Sodium Chloride (NS Flush) UNSCH PRN IV FLUSH SEE PROTOCOL TABLE 02/17/18 17:45 02/23/18 15:11 Acetaminophen (Tylenol 650 Mg/ 20 ml Liq) 650 mg Q6H PRN PO fever 02/18/18 09:30 02/26/18 01:21 Artificial Tears (Tears Naturale Opth Soln) 1 drop Q8HR EACH EYE 02/18/18 14:00 03/01/18 22:25 Albuterol Sulfate (Albuterol Neb) 2.5 mg Q2HR NEB PRN NEB dyspnea 02/18/18 09:30 02/28/18 08:37 Labetalol HCl (Trandate Inj) 10 mg Q1H PRN IV PUSH SBP>170, DBP>90 02/18/18 09:30 02/27/18 16:31 Lansoprazole (Prevacid Odt) 30 mg DAILY NG 02/19/18 09:00 03/02/18 10:14 Montelukast Sodium (Singulair) 10 mg HS PO 02/18/18 21:00 03/01/18 22:24 Latanoprost (Xalatan 0.005% Opth Soln) 1 drop HS EACH EYE 02/18/18 21:00 03/01/18 22:24 Nitroglycerin (Nitroglycerin 2% Oint) 2 inch Q6HR PRN TOPICAL SBP>160, DBP>90 02/18/18 13:15 Hydralazine HCl (Apresoline Inj) 10 mg Q1HR PRN IV PUSH SBP>160, DBP>90 02/18/18 13:15 02/28/18 04:19 Terbutaline Sulfate (Brethine Inj) 1 mg UNSCH PRN SQ For Extravasation 02/18/18 18:45 Levothyroxine Sodium (Synthroid) 88 mcg DAILY@0600 PO 02/20/18 06:00 03/02/18 06:00 Valproate Sodium 500 mg/Sodium Chloride 105 ml @ 105 mls/hr Q4HR IV 02/19/18 20:00 03/02/18 12:21 Bacitracin (Baciguent Oint) 1 applic Q12HR TOPICAL 02/21/18 21:00 03/02/18 11:33 Metronidazole (Flagyl) 500 mg Q8HR PO 02/22/18 14:00 03/02/18 06:00 Phenobarbital Sodium (Luminal Inj) 100 mg Q8H IV 02/24/18 02:00 03/02/18 10:14 Lisinopril (Prinivil) 10 mg BID PO 02/24/18 21:00 03/02/18 10:14 Micafungin Sodium 100 mg/Sodium Chloride 100 ml @ 100 mls/hr Q24H IV 02/26/18 23:00 03/01/18 22:25 Albuterol/ Ipratropium (Duoneb Neb) 1 ampule Q6HR NEB NEB 02/28/18 10:00 03/02/18 08:27 Furosemide (Lasix Inj) 40 mg BID@,18 IV PUSH 02/28/18 09:00 03/02/18 10:14 Objective: Vital Signs Date Time Temp Pulse Resp B/P (MAP) Pulse Ox O2 Delivery O2 Flow Rate FiO2 03/02/18 12:00 98.7 82 24 98 03/02/18 12:00 35 03/02/18 12:00 80 03/02/18 11:54 97 35 03/02/18 10:00 78 03/02/18 08:24 100 35 03/02/18 08:00 35 03/02/18 08:00 98.3 80 16 157/90 (112) 100 03/02/18 08:00 80 03/02/18 06:00 80 03/02/18 04:08 97 35 03/02/18 04:00 98.9 75 16 112/53 (72) 97 03/02/18 04:00 35 03/02/18 04:00 75 03/02/18 02:00 78 03/02/18 00:14 99 35 03/02/18 00:00 40 03/02/18 00:00 83 03/02/18 00:00 99.0 83 16 130/62 (84) 98 03/01/18 22:00 82 03/01/18 20:19 97 40 03/01/18 20:00 97.7 83 20 117/63 (81) 03/01/18 20:00 83 03/01/18 20:00 40 03/01/18 18:00 75 03/01/18 16:50 T-piece 40 03/01/18 16:50 40 03/01/18 16:00 110 03/01/18 16:00 45 03/01/18 16:00 98.5 85 23 113/62 (79) 97 03/01/18 14:00 104 Laboratory Tests Test 02/28/18 14:00 03/01/18 05:15 03/02/18 10:40 White Blood Count 12.7 TH/MM3 10.2 TH/MM3 11.0 TH/MM3 Red Blood Count 3.85 MIL/MM3 3.09 MIL/MM3 3.17 MIL/MM3 Hemoglobin 12.1 GM/DL 9.9 GM/DL 10.3 GM/DL Hematocrit 36.5 % 29.3 % 30.8 % Mean Corpuscular Volume 94.9 FL 95.0 FL 97.0 FL Mean Corpuscular Hemoglobin 31.4 PG 32.1 PG 32.3 PG Mean Corpuscular Hemoglobin Concent 33.1 % 33.8 % 33.3 % Red Cell Distribution Width 20.3 % 19.9 % 19.5 % Platelet Count 314 TH/MM3 312 TH/MM3 293 TH/MM3 Mean Platelet Volume 8.1 FL 7.7 FL 8.1 FL Neutrophils (%) (Auto) 72.0 % Lymphocytes (%) (Auto) 18.3 % Monocytes (%) (Auto) 7.6 % Eosinophils (%) (Auto) 2.0 % Basophils (%) (Auto) 0.1 % Neutrophils # (Auto) 7.9 TH/MM3 Lymphocytes # (Auto) 2.0 TH/MM3 Monocytes # (Auto) 0.8 TH/MM3 Eosinophils # (Auto) 0.2 TH/MM3 Basophils # (Auto) 0.0 TH/MM3 CBC Comment DIFF FINAL Differential Comment Laboratory Tests Test 02/28/18 14:00 03/01/18 05:15 03/02/18 10:40 Blood Urea Nitrogen 15 MG/DL 22 MG/DL 23 MG/DL Creatinine 0.42 MG/DL 0.37 MG/DL 0.30 MG/DL Random Glucose 137 MG/DL 120 MG/DL 129 MG/DL Calcium Level 8.6 MG/DL 8.2 MG/DL 8.1 MG/DL Phosphorus Level 3.3 MG/DL 3.3 MG/DL Magnesium Level 2.0 MG/DL 1.9 MG/DL Sodium Level 142 MEQ/L 144 MEQ/L 142 MEQ/L Potassium Level 3.9 MEQ/L 3.6 MEQ/L 3.5 MEQ/L Chloride Level 107 MEQ/L 107 MEQ/L 107 MEQ/L Carbon Dioxide Level 26.3 MEQ/L 28.1 MEQ/L 30.4 MEQ/L Anion Gap 9 MEQ/L 9 MEQ/L 5 MEQ/L Estimat Glomerular Filtration Rate 150 ML/MIN 174 ML/MIN 221 ML/MIN Microbiology Date/Time Source Procedure Growth Status 02/28/18 17:00 Urine Catheterized Urine Urine Culture - Final Escherichia Coli Complete Imaging: Chest X-Ray 02/27/18 0600 Signed Impressions: Service Date/Time: Tuesday, February 27, 2018 04:51 - CONCLUSION: No significant change. Bautista Wynne MD Chest X-Ray 02/27/18 0000 Signed Impressions: Service Date/Time: Tuesday, February 27, 2018 17:12 - CONCLUSION: Increasing airspace disease especially in the left lung. No other significant change. Ken Avila MD Chest X-Ray 02/26/18 0600 Signed Impressions: Service Date/Time: Monday, February 26, 2018 04:14 - CONCLUSION: No significant change. Bautista Wynne MD Chest X-Ray 02/26/18 0000 Signed Impressions: Service Date/Time: Monday, February 26, 2018 10:46 - CONCLUSION: 1. Tracheostomy good position. No pneumothorax. 2. Persistent bilateral lower lung zone airspace disease and associated pleural effusions. Adin Sanchez MD Chest X-Ray 02/25/18 0600 Signed Impressions: Service Date/Time: Sunday, February 25, 2018 04:05 - CONCLUSION: 1. Bilateral lower lobe atelectasis versus pneumonia. There has been no significant change when compared to the prior exam. Inder Maria MD Chest X-Ray 02/24/18 06 Signed Impressions: Service Date/Time: Saturday, February 24, 2018 04:03 - CONCLUSION: 1. Patchy alveolar disease characteristic of edema or pneumonia. There has been no significant change when compared to the prior exam. Bilateral effusions Inder Maria MD PHYSICAL EXAMINATION: GENERAL: Patient is sedated. No acute distress. HEENT: No icterus. NECK: Supple, no adenopathy. LUNGS: Decreased breath sounds. HEART: Regular S1 and S2, without audible murmurs, rubs or gallops. ABDOMEN: Obese, soft, positive bowel sounds. EXTREMITIES: Diffuse edema. SKIN: No diffuse rash. NEUROLOGIC: Unable to assess. PSYCHIATRIC: Unable to assess. IMPRESSION: 1. Fever in patient with status epilepticus. Temperature improved. 2. Urinary tract infection due to Kathy. Urine culture now has gram- negative richard. Urinary infection is likely due to indwelling Ardon catheter which the patient appears to need at this time. 3. C. difficile colitis. 4. Acute respiratory failure. Probable pneumonia. Sputum culture has normal beka. Chest x-ray without acute infiltrate. 5. Probable sepsis. Blood cultures no growth. RECOMMENDATIONS: 1. Continue to treat the C. difficile with metronidazole. 2. Stop micafungin. 3. Hold off on additional antibiotics for UTI at this time. Ardon catheter has been changed. Consider antibiotic if she has temperature spike. 4. Monitor white blood cell count. 5. Monitor clinical status. Irving Rolle MD Mar 02, 2018 13:31
[2018-03-02] MEDS: LATANOPROST 0.005% OPHT SOLN 2.5 ML BTL EACH EYE SCH (20:22)
[2018-03-02] MEDS: MONTELUKAST SODIUM 10 MG TAB PO SCH (20:23)
[2018-03-03] VITALS (19 sets, daily range): BP systolic 118–179; BP diastolic 57–84; PULSE 67–83; RESP 16–20; TEMP 98.5–98.8; O2SAT 93–98
[2018-03-03] MEDS: PHENobarbital SOD 130 MG/ML VIAL IV SCH ×3 (00:45→18:12)
[2018-03-03] MEDS: LABETALOL HCL 100 MG/20 ML VIAL IV PUSH PRN ×2 (01:27→02:25)
[2018-03-03] MEDS: CHLORHEXIDINE GLUCONATE 2 % 1 PACK (2 CLOTHS) TOP SCH (04:00)
[2018-03-03] MEDS: RESP: ALBUTEROL 2.5 MG/IPRATROPIUM 0.5 MG NEB (SCH) NEB ×4 (04:24→20:26)
[2018-03-03] MEDS: VALPROATE INJ 500 MG in SODIUM CHLORIDE 0.9% INJ 100 ML IV SCH ×6 (04:44→23:08)
[2018-03-03] MEDS: LACOSAMIDE INJ 100 MG in SODIUM CHLORIDE 0.9% INJ 100 ML IV SCH ×3 (04:45→20:47)
[2018-03-03] MEDS: metroNIDAZOLE 500 MG TAB PO SCH ×3 (04:46→20:46)
[2018-03-03] MEDS: hydrALAZINE HCL 20 MG/ML VIAL IV PUSH PRN (04:46)
[2018-03-03] MEDS: LEVOTHYROXINE SODIUM 88 MCG TAB PO SCH (04:46)
[2018-03-03] MEDS: ARTIFICIAL TEARS OPTH SOLN 15 ML BTL EACH EYE SCH ×3 (04:46→20:49)
--- NOTE | 2018-03-03 05:00 | RADRPT ---
EXAM DATE/TIME: 03/03/2018 04:29 [facility] COMPARISON: CHEST SINGLE AP, February 27, 2018, 17:12. INDICATIONS : Shortness of breath, possible pulmonary disease. MEDICAL HISTORY : Arthritis. Hypertension Seizures SURGICAL HISTORY : Hysterectomy. section. Fusion, thoracic. ENCOUNTER: Subsequent ACUITY: 3 weeks PAIN SCORE: Non-responsive. LOCATION: Bilateral chest FINDINGS: Overall no significant change from prior study. Basilar consolidation again seen bilaterally. No disc ernible effusions on the current exam. Heart is at the upper limits of normal in terms of size. Trach eostomy tube and left-sided PICC line. Orthopedic rods. CONCLUSION: No significant change with persistent bibasilar consolidation. Beni Castañeda Jr., MD on March 03, 2018 at 4:57 Board Certified Radiologist. This report was verified electronically.
[2018-03-03] MEDS: INSULIN NovoLIN REGULAR SUPPLEMENTAL SCALE SQ SCH ×4 (05:02→23:08)
[2018-03-03 06:00] LABS: BICARBONATE 29.6 MEQ/L (21.0-32.0); CALCIUM 8.5 MG/DL (8.5-10.1); CREATININE 0.35 MG/DL (0.50-1.00)
[2018-03-03 06:06] LABS: AUTOMATED NEUTROPHIL # 8.8 TH/MM3 (1.8-7.7); BASOPHIL # 0.1 TH/MM3 (0-0.2); EOSINOPHIL # 0.2 TH/MM3 (0-0.4); EOSINOPHIL % 1.9 % (0.0-4.0); HEMATOCRIT 32.5 % (35.0-46.0); HEMOGLOBIN 10.9 GM/DL (11.6-15.3); LYMPH % 19.9 % (9.0-44.0); LYMPHOCYTE # 2.4 TH/MM3 (1.0-4.8); MEAN CELL VOLUME 96.8 FL (80.0-100.0); MEAN CORPUSCULAR HEMOGLOBIN 32.4 PG (27.0-34.0); MEAN CORPUSCULAR HGB CONC 33.5 % (32.0-36.0); MEAN PLATELET VOLUME 8.5 FL (7.0-11.0); MONOCYTE # 0.6 TH/MM3 (0-0.9); NEUT % 72.2 % (16.0-70.0); PLATELET COUNT 307 TH/MM3 (150-450); RED BLOOD COUNT 3.36 MIL/MM3 (4.00-5.30); RED CELL DISTRIBUTION WIDTH 19.6 % (11.6-17.2); WHITE BLOOD COUNT 12.2 TH/MM3 (4.0-11.0)
[2018-03-03] MEDS: DOCUSATE SODIUM 50 MG/SENNA 8.6 MG TAB PO SCH ×2 (08:49→20:47)
[2018-03-03] MEDS: LANSOPRAZOLE SOLUTAB 30 MG TAB NG SCH (08:49)
[2018-03-03] MEDS: FUROSEMIDE 40 MG/4 ML VIAL IV PUSH SCH ×2 (08:49→18:12)
[2018-03-03] MEDS: LISINOPRIL 10 MG TAB PO SCH ×2 (08:49→20:47)
[2018-03-03] MEDS: BACITRACIN TOP OINT 15 GM TUBE TOPICAL SCH ×2 (08:51→20:49)
[2018-03-03] MEDS: SODIUM CHLORIDE 0.9% FLUSH 10 ML FLUSH IV FLUSH SCH (08:51)
[2018-03-03] MEDS: CHLORHEXIDINE 0.12% (ORAL KIT) 15 ML CUP MT SCH ×2 (08:51→20:48)
[2018-03-03] MEDS: POTASSIUM CHLORIDE 25 MEQ EFFERVESCENT TAB PO PRN (08:53)
--- NOTE | 2018-03-03 16:57 | HHI.CCPN ---
Subjective Remarks/Hospital Course This is a 67-year-old female with a history of poorly controlled seizures who presents with acute altered mental status. She was last seen normal at 3 AM this morning. Initially she was considered to be a stroke alert, however CT noncontrasted brain was negative and her nonfocal appearance was much more suggestive of seizures and stroke, along with the fact that her last seen normal time was significantly delayed. Stat EEG was ordered and she was found to be in status epilepticus. She was emergently intubated due to her poor mental status. I was called immediately down to the bedside for the EEG demonstrating status. At the bedside, I pushed 10 mg of Versed IV 1 and started her on a Versed drip at 10 mg an hour. No information is available from the patient due to her mental status. ROS is unobtainable. The majority of the information I have is obtained from medical record, and in specifically the H&P documented by Dr. Guerra back in October 2017, which is very helpful. In reading through her chart, it appears that when she comes off her Topamax, she goes into status. It appears that she has recently come off Topamax again due to side effects. She is anaphylactically allergic to Keppra and phenytoin, so these are not available to us to use. Versed drip was used successfully in her last admission October 2017, so that is what we have chosen. I have spoken with Dr. Headley who is not only an on-call neurologist but her personal neurologist who sees her frequently, and he agrees with this plan. He also thinks that Vimpat is a good option for seizure control, which I agree with. We will plan to load her with that. 02/11/18: Remains encephalopathy on the vent. No spontaneous movement noted when Versed is held. Will get a repeat EEG today. Wean sedation only if seizure controlled 02/12: Calm now, no convulsive activity. EEG result pending. Midazolam at 10. 02/13: On continuous EEG monitoring, no seizures noted. Versed had been weaned down to 5 mg/h, propofol at 20 mcg/kg/min. Patient does not open eyes or moves spontaneously 02/14: On attempted sedation wean yesterday night patient developed 2 episodes of seizures. Currently no clinical seizures. I discussed with Dr. Headley, will start phenobarbital 90 mg IV every 8 hours. Repeat EEG today. Currently back on 50 mcg/kg/min of propofol, Versed 7 mg per hour 02/15: Remains heavily sedated, started on phenobarbital IV yesterday. Level only 2.8. Will increase dose to 120 mg every 8 hours repeat level in a.m. EEG today pending. No sedation weaning without clearance from Dr. Headley. EEG yesterday showed some left-sided phase reversal. Leukocytosis with bandemia noted, will re culture 02/16: Pt had persistent epileptiform activity on eeg 02/[address] Headley. No sedation vacation until repeat EEG shows resolution. I have updated about this at the bedside. Repeat cultures pending at this time. Check renal ultrasound as the patient had recent hydronephrosis, ureteral stent. Patient remains critically ill in severely encephalopathic due to uncontrolled seizures 02/17: remains deeply sedated for status epilepticus. phenobarb level 55.[address] Headley managing anti-epileptics: very difficult to control seizures as well as difficult medication titration given multiple anaphylactic allergies to anticonvulsants. 02/18: T-max 100. Currently 99.4. Tolerating tube feeding. No bowel movement. 4 days. Remains sedated on midazolam and propofol drips 02/19: T-max 101.6. Currently 99.6. Tolerating tube feeds. 2 problems overnight. Remains on midazolam and propofol drips and phenobarbital, valproic acid and lacosamide 02/20: Afebrile. Propofol increased to 30 mg/kg/min overnight. Suppressing seizures currently. Increasing antiepileptics per neurology. Tolerating tube feeding. Positive BM. 02/21: Afebrile. Off propofol drip. Midazolam drip at 1 mg an hour. No signs of seizure activity on the last 2 EEGs. Tolerating tube feeding. Positive BM. 02/22: Off all sedation. EEG reveals moderate to severe encephalopathy. No epileptiform activity. Blinks eyes. Withdraws to pain in all 4 extremities. 02/23: Again off all sedation. Phenobarbital decreased to 100 mg every 8 hours per neurology. Opens eyes and blinks. Does not follow commands. Quite edematous. 02/24: Afebrile. Currently on CPAP trial. Opens eyes and blinks. Does not follow commands. Receiving furosemide 40 mg 1 for diuresis. 02/25: T-max 100.4. Patient continues on CPAP trials 27/03.35. Patient not following commands. Patient remains off sedation since 02/22/18. Discussion regarding tracheostomy and PEG placement with family at bedside. 02/26: Patient experienced low-grade temperature last night. Patient tolerated CPAP trials greater than 12 hours yesterday. Plan for tracheostomy and PEG placement today. Noted slight increase in WBC count. Bronchoscopy BAL sputum culture sent post tracheostomy. Phenobarbital and valproic acid levels therapeutic. 02/27: No acute events overnight. The patient's hemoglobin this a.m. was noted to be 6.6 labs repeated consistent with hemoglobin 6.8 the patient is receiving 2 units of packed red blood cells. Patient was noted to be hypocalcemic will receive 2 g calcium gluconate and electrolytes are being repleted. Patient's propofol was discontinued at 1900 on 02/26/18. Patient spontaneously opens eyes to stimulation. Tube feeds resumed post PEG placement. 02/28: Patient opens eyes to stimulation. Complete sedation discontinued since , post tracheostomy and PEG tube placement. CPAP trials in progress. Patient tolerating tube feeds. WBC count slightly elevated, BMP pending. 03/01: Afebrile .WBC count trending down. Patient awake, has spontaneous eye opening, no tracking, not moving extremities. Patient tolerating tube feeds. Continues on CPAP trials 03/02 No events overnight. On ventilator via trach. Afebrile. SUBJECTIVE: 03/03 On CPAP 12/ with RSBI in 40s. Decreased PS to 5 and RSBI in 70s, will continue to monitor there and transition to tpiece trial if appropriate. Afebrile. Off sedation, no change in neuro. Objective Vital Signs Date Time Temp Pulse Resp B/P (MAP) Pulse Ox O2 Delivery O2 Flow Rate FiO2 03/03/18 14:12 96 40 03/03/18 14:00 79 03/03/18 12:00 98.8 19 136/61 (86) 03/01/18 16:50 T-piece Intake and Output 03/03/18 03/03/18 03/04/18 08:00 16:00 00:00 Intake Total 545 ml Output Total 1350 ml Balance -805 ml Result Diagram: 03/03/18 0459 03/03/18 0459 Other Results Microbiology Date/Time Source Procedure Growth Status 02/28/18 17:00 Urine Catheterized Urine Urine Culture - Final Escherichia Coli Complete Imaging Last Impressions Chest X-Ray 02/27/18 0600 Signed Impressions: Service Date/Time: Tuesday, February 27, 2018 04:51 - CONCLUSION: No significant change. Bautista Wynne MD Renal Ultrasound 02/16/18 0000 Signed Impressions: Service Date/Time: Friday, February 16, 2018 10:17 - CONCLUSION: 1. Unremarkable renal ultrasound examination without evidence for obstructive uropathy. Adin Sanchez MD Head CT 02/10/18 1115 Signed Impressions: Service Date/Time: Saturday, February 10, 2018 12:19 - CONCLUSION: Stable negative noncontrast CT. Mustapha Grossman MD Brain MRI 02/10/18 0000 Signed Impressions: Service Date/Time: Saturday, February 10, 2018 16:30 - CONCLUSION: 1. Stable appearance with no acute hemorrhage, mass or infarction. 2. Moderate atrophic change and stable mild ventricular prominence. Mustapha Grossman MD Last Impressions Chest X-Ray 02/27/18 06 Signed Impressions: Service Date/Time: Tuesday, February 27, 2018 04:51 - CONCLUSION: No significant change. Bautista Wynne MD Renal Ultrasound 02/16/18 0000 Signed Impressions: Service Date/Time: Friday, February 16, 2018 10:17 - CONCLUSION: 1. Unremarkable renal ultrasound examination without evidence for obstructive uropathy. Adin Sanchez MD Head CT 02/10/18 1115 Signed Impressions: Service Date/Time: Saturday, February 10, 2018 12:19 - CONCLUSION: Stable negative noncontrast CT. Mustapha Grossman MD Brain MRI 02/10/18 0000 Signed Impressions: Service Date/Time: Saturday, February 10, 2018 16:30 - CONCLUSION: 1. Stable appearance with no acute hemorrhage, mass or infarction. 2. Moderate atrophic change and stable mild ventricular prominence. Mustapha Grossman MD Last Impressions Chest X-Ray 02/25/18 0600 Signed Impressions: Service Date/Time: Sunday, February 25, 2018 04:05 - CONCLUSION: 1. Bilateral lower lobe atelectasis versus pneumonia. There has been no significant change when compared to the prior exam. Inder Maria MD Renal Ultrasound 02/16/18 0000 Signed Impressions: Service Date/Time: Friday, February 16, 2018 10:17 - CONCLUSION: 1. Unremarkable renal ultrasound examination without evidence for obstructive uropathy. Adin Sanchez MD Head CT 02/10/18 1115 Signed Impressions: Service Date/Time: Saturday, February 10, 2018 12:19 - CONCLUSION: Stable negative noncontrast CT. Mustapha Grossman MD Brain MRI 02/10/18 0000 Signed Impressions: Service Date/Time: Saturday, February 10, 2018 16:30 - CONCLUSION: 1. Stable appearance with no acute hemorrhage, mass or infarction. 2. Moderate atrophic change and stable mild ventricular prominence. Mustapha Grossman MD Last Impressions Chest X-Ray 02/24/18 0600 Signed Impressions: Service Date/Time: Saturday, February 24, 2018 04:03 - CONCLUSION: 1. Patchy alveolar disease characteristic of edema or pneumonia. There has been no significant change when compared to the prior exam. Bilateral effusions Inder Maria MD Renal Ultrasound 02/16/18 0000 Signed Impressions: Service Date/Time: Friday, February 16, 2018 10:17 - CONCLUSION: 1. Unremarkable renal ultrasound examination without evidence for obstructive uropathy. Adin Sanchez MD Head CT 02/10/18 1115 Signed Impressions: Service Date/Time: Saturday, February 10, 2018 12:19 - CONCLUSION: Stable negative noncontrast CT. Mustapha Grossman MD Brain MRI 02/10/18 0000 Signed Impressions: Service Date/Time: Saturday, February 10, 2018 16:30 - CONCLUSION: 1. Stable appearance with no acute hemorrhage, mass or infarction. 2. Moderate atrophic change and stable mild ventricular prominence. Mustapha Grossman MD Procedures 02/26-PEG placement 02/26-percutaneous tracheostomy Objective Remarks GENERAL: 67-year-old female with generalized anasarca with no sedation. HEENT: Normocephalic. Atraumatic. Pupils 2mm, equal, round, reactive, conjugate. Mucous membranes are moist and pink.. NECK: Trachea is midline. 8.0 Shiley tracheostomy CHEST: Essentially clear to auscultation bilaterally. Equal chest rise CARDIOVASCULAR: RRR. S1, S2 without murmur ABDOMEN: Soft, nontender, obese nondistended. No guarding. PEG site clean dry and intact, tolerating tube feeds. MUSCULOSKELETAL: Pulses 2+. 2+ peripheral edema : Scott in place, light yellow urine output. NEUROLOGICAL: Eyes open to central noxious stimuli. Has a facial grimace. Does not appear to track.. Positive cough and gag Withdraws to pain bilateral upper extremities. Upward toes. SKIN: 2+ edema with weeping from ruptured bullae on upper extremities right greater than left. Date of Insertion: Feb 25, 2018 Date of Insertion: Feb 17, 2018 Line: PICC Side: Left Location: Antecubital A/P Assessment and Plan Neuro/Psych: Status epilepticus Elevated IOP Acute encephalopathy Continue antiseizure meds per neuro-valproate, phenobarbital , lacosamide MRI brain 02/10 revealed mild ventricular enlargement. Atrophy. EEG 02/24 Improved EEG demonstrating mild encephalopathy in sleep state. Clinical correlation. EEG 02/21 revealed moderate encephalopathy. No epileptic activity EEG 02/20 revealed moderate to severe encephalopathy. No epileptiform activity EEG brain 02/18 revealed suppressed platelets. EEG brain 02/16 revealed left frontal central spiking. -EEG 02/15/18 showed persistent seizure activity 02/14 probable phase reversal noted on left side. 02/15 persistent seizures -EEG repeat 02/12 no active seizures. -off sedation since 02/22. No significant change in mental status. Repeat EEG. - Check ammonia level, phenobarbital, depakote in am. Acetaminophen 650 mg every 6 hours as needed fever Continue bimatoprost 0.01% 1 drop each eye at night with appropriate hospital substitution latanoprost 0.005% 1 drop each eye at night Resp: Acute respiratory failure/hypoxic and hypercapnic Doing daily CPAP trials. failed tpiece trial on 03/01. Doing CPAP daily, weaned to 5/5 today and will transition to tpiece as tolerated. Resting on vent at night. ACV 15/500/5/40 Ventilator bundle Albuterol/ipratropium aerosols every 6 hours with albuterol aerosols every 2 hours as needed dyspnea Pulm toilet , trach care Continue montelukast 10 mg by tube daily 02/26 S/P tracheostomy placement CXR 03/03- bibasilar consolidation, no significant change. CV: Chronic diastolic heart failure Hypertension Dyslipidemia On lisinopril 10 po bid. HAs been requiring prn hydralazine/labetalol . Metoprolol 12.5 per tube bid. Continue aspirin 81 mg p.o. daily Zetia on hold Echo 12/25/14 EF 60-65% grade I diastolic dysfunction. GI Chronic moderate protein energy malnutrition. Gastritis Hiatal hernia OG tube and tube feeds with vital high-protein goal 65 cc/h per nutrition's recommendations Lansoprazole for GI prophylaxis Docusate sodium/senna 1 tablet twice daily for bowel regimen 02/26 PEG placement EGD 02/26 during PEG with mild gastritis at antrum, Antrum biopsy demonstrated chronic inflammation. H. pylori negative Dignishield in place no stool charted since 02/28 so will d/c. : Overactive bladder Recent ureteral stent for hydronephrosis -Monitor renal function, electrolytes replacement per protocol -On Lasix 40mg IV BID. Continue diuresis. Place purewick catheter and d/c scott. Renal ultrasound revealed no hydronephrosis 02/16 ID: -UTI with E. coli 02/10 Funguria C. difficile Metronidazole 500 mg by tube 3 times daily for C. difficile Afebrile, watching off other antibiotics due to C diff. Dr. Rolle aware of Ecoli in urine. Remove Scott, place purewick catheter. as on micafungin for 02/26 through 03/02 ID following-Dr. Rolle Pertinent cultures 02/28 Urine: E coli. No growth to date blood cultures 2 and sputum 02/19 02/18 -urine culture -C glabrata 02/15 -UA -no growth 02/15 blood cultures 2 -no growth 02/10 -UA -E. coli HEME: Leukocytosis Macrocytic anemia -Monitor CBC. Transfused 2 units on 02/27. Hgb responded and subsequently has been stable without signs of active bleeding. EGD showed gastritis. Will resume Lovenox. Endo Mild hyperglycemia Hypothyroidism Sliding scale insulin with NovoLog with Accu-Cheks to maintain euglycemia/low regimen every 6 hours. Not requiring coverage. TSH was 10.4. Continue levothyroxine to 88 mcg daily Access -Left antecubital PICC line placed 02/17/dual-lumen #15 Prophylaxis -GI -lansoprazole -DVT -SCD/resume enoxaparin PT/OT consulted. Case management consulted for possible transfer to [facility]. Referral placed per case management note 02/28. Level 2 follow-up. Mita Guerra MD Mar 03, 2018 16:57
[2018-03-03] MEDS ORDERED: PILL SPLITTER OTHER PRN (18:00)
[2018-03-03] MEDS: MONTELUKAST SODIUM 10 MG TAB PO SCH (20:47)
[2018-03-03] MEDS: METOPROLOL TARTRATE 25 MG TAB PEG SCH (20:47)
[2018-03-03] MEDS: LATANOPROST 0.005% OPHT SOLN 2.5 ML BTL EACH EYE SCH (20:49)
[2018-03-04] VITALS (19 sets, daily range): BP systolic 134–173; BP diastolic 63–127; PULSE 72–93; RESP 16–24; TEMP 98.4–98.8; O2SAT 96–100
[2018-03-04] MEDS: PHENobarbital SOD 130 MG/ML VIAL IV SCH ×3 (01:48→17:32)
[2018-03-04 03:27] LABS: AUTOMATED NEUTROPHIL # 9.5 TH/MM3 (1.8-7.7); BASOPHIL % 0.3 % (0.0-2.0); EOSINOPHIL # 0.2 TH/MM3 (0-0.4); EOSINOPHIL % 1.3 % (0.0-4.0); HEMATOCRIT 32.9 % (35.0-46.0); HEMOGLOBIN 10.9 GM/DL (11.6-15.3); LYMPH % 15.4 % (9.0-44.0); LYMPHOCYTE # 1.9 TH/MM3 (1.0-4.8); MEAN CELL VOLUME 97.3 FL (80.0-100.0); MEAN CORPUSCULAR HEMOGLOBIN 32.2 PG (27.0-34.0); MEAN CORPUSCULAR HGB CONC 33.1 % (32.0-36.0); MEAN PLATELET VOLUME 8.2 FL (7.0-11.0); MONO % 6.6 % (0.0-8.0); MONOCYTE # 0.8 TH/MM3 (0-0.9); NEUT % 76.4 % (16.0-70.0); PLATELET COUNT 315 TH/MM3 (150-450); RED BLOOD COUNT 3.38 MIL/MM3 (4.00-5.30); RED CELL DISTRIBUTION WIDTH 19.6 % (11.6-17.2); WHITE BLOOD COUNT 12.4 TH/MM3 (4.0-11.0)
[2018-03-04] MEDS: CHLORHEXIDINE GLUCONATE 2 % 1 PACK (2 CLOTHS) TOP SCH (03:29)
[2018-03-04] MEDS: LACOSAMIDE INJ 100 MG in SODIUM CHLORIDE 0.9% INJ 100 ML IV SCH ×3 (03:29→19:36)
[2018-03-04] MEDS: VALPROATE INJ 500 MG in SODIUM CHLORIDE 0.9% INJ 100 ML IV SCH ×5 (03:29→19:36)
[2018-03-04] MEDS: RESP: ALBUTEROL 2.5 MG/IPRATROPIUM 0.5 MG NEB (SCH) NEB ×4 (03:39→21:27)
[2018-03-04 03:44] LABS: ALBUMIN 1.5 GM/DL (3.4-5.0); ALT (GPT) 9 U/L (10-53); AST (GOT) 12 U/L (15-37); BICARBONATE 31.8 MEQ/L (21.0-32.0); BLOOD UREA NITROGEN 30 MG/DL (7-18); CALCIUM 8.5 MG/DL (8.5-10.1); CHLORIDE 105 MEQ/L (98-107); CREATININE 0.32 MG/DL (0.50-1.00); GLOMERULAR FILTRATION RATE 205 ML/MIN (>89); GLUCOSE,RANDOM 124 MG/DL (74-106); MAGNESIUM 1.9 MG/DL (1.5-2.5); SODIUM (NA) 143 MEQ/L (136-145)
[2018-03-04 03:47] LABS: ALKALINE PHOSPHATASE 57 U/L (45-117); PHOSPHORUS 3.5 MG/DL (2.5-4.9); TOTAL BILIRUBIN ADULT 0.2 MG/DL (0.2-1.0); TOTAL PROTEIN 6.8 GM/DL (6.4-8.2)
[2018-03-04] MEDS: INSULIN NovoLIN REGULAR SUPPLEMENTAL SCALE SQ SCH ×3 (06:00→17:35)
[2018-03-04] MEDS: LEVOTHYROXINE SODIUM 88 MCG TAB PO SCH (06:09)
[2018-03-04] MEDS: metroNIDAZOLE 500 MG TAB PO SCH ×3 (06:09→23:25)
[2018-03-04] MEDS: ARTIFICIAL TEARS OPTH SOLN 15 ML BTL EACH EYE SCH ×3 (06:10→23:26)
[2018-03-04] MEDS: SODIUM CHLORIDE 0.9% FLUSH 10 ML FLUSH IV FLUSH SCH (08:35)
[2018-03-04] MEDS: FUROSEMIDE 40 MG/4 ML VIAL IV PUSH SCH ×2 (08:35→17:32)
[2018-03-04] MEDS: LISINOPRIL 10 MG TAB PO SCH ×2 (08:36→19:36)
[2018-03-04] MEDS: DOCUSATE SODIUM 50 MG/SENNA 8.6 MG TAB PO SCH ×2 (08:36→19:35)
[2018-03-04] MEDS: METOPROLOL TARTRATE 25 MG TAB PEG SCH ×2 (08:36→19:36)
[2018-03-04] MEDS: LANSOPRAZOLE SOLUTAB 30 MG TAB NG SCH (08:36)
[2018-03-04] MEDS: BACITRACIN TOP OINT 15 GM TUBE TOPICAL SCH ×2 (08:37→19:39)
[2018-03-04] MEDS: CHLORHEXIDINE 0.12% (ORAL KIT) 15 ML CUP MT SCH ×2 (08:37→19:41)
[2018-03-04] MEDS: hydrALAZINE HCL 20 MG/ML VIAL IV PUSH PRN (12:19)
--- NOTE | 2018-03-04 16:06 | HHI.CCPN ---
Subjective Remarks/Hospital Course This is a 67-year-old female with a history of poorly controlled seizures who presents with acute altered mental status. She was last seen normal at 3 AM this morning. Initially she was considered to be a stroke alert, however CT noncontrasted brain was negative and her nonfocal appearance was much more suggestive of seizures and stroke, along with the fact that her last seen normal time was significantly delayed. Stat EEG was ordered and she was found to be in status epilepticus. She was emergently intubated due to her poor mental status. I was called immediately down to the bedside for the EEG demonstrating status. At the bedside, I pushed 10 mg of Versed IV 1 and started her on a Versed drip at 10 mg an hour. No information is available from the patient due to her mental status. ROS is unobtainable. The majority of the information I have is obtained from medical record, and in specifically the H&P documented by Dr. Guerra back in October 2017, which is very helpful. In reading through her chart, it appears that when she comes off her Topamax, she goes into status. It appears that she has recently come off Topamax again due to side effects. She is anaphylactically allergic to Keppra and phenytoin, so these are not available to us to use. Versed drip was used successfully in her last admission October 2017, so that is what we have chosen. I have spoken with Dr. Headley who is not only an on-call neurologist but her personal neurologist who sees her frequently, and he agrees with this plan. He also thinks that Vimpat is a good option for seizure control, which I agree with. We will plan to load her with that. 02/11/18: Remains encephalopathy on the vent. No spontaneous movement noted when Versed is held. Will get a repeat EEG today. Wean sedation only if seizure controlled 02/12: Calm now, no convulsive activity. EEG result pending. Midazolam at 10. 02/13: On continuous EEG monitoring, no seizures noted. Versed had been weaned down to 5 mg/h, propofol at 20 mcg/kg/min. Patient does not open eyes or moves spontaneously 02/14: On attempted sedation wean yesterday night patient developed 2 episodes of seizures. Currently no clinical seizures. I discussed with Dr. Headley, will start phenobarbital 90 mg IV every 8 hours. Repeat EEG today. Currently back on 50 mcg/kg/min of propofol, Versed 7 mg per hour 02/15: Remains heavily sedated, started on phenobarbital IV yesterday. Level only 2.8. Will increase dose to 120 mg every 8 hours repeat level in a.m. EEG today pending. No sedation weaning without clearance from Dr. Headley. EEG yesterday showed some left-sided phase reversal. Leukocytosis with bandemia noted, will re culture 02/16: Pt had persistent epileptiform activity on eeg 02/[address] Headley. No sedation vacation until repeat EEG shows resolution. I have updated about this at the bedside. Repeat cultures pending at this time. Check renal ultrasound as the patient had recent hydronephrosis, ureteral stent. Patient remains critically ill in severely encephalopathic due to uncontrolled seizures 02/17: remains deeply sedated for status epilepticus. phenobarb level 55.[address] Headley managing anti-epileptics: very difficult to control seizures as well as difficult medication titration given multiple anaphylactic allergies to anticonvulsants. 02/18: T-max 100. Currently 99.4. Tolerating tube feeding. No bowel movement. 4 days. Remains sedated on midazolam and propofol drips 02/19: T-max 101.6. Currently 99.6. Tolerating tube feeds. 2 problems overnight. Remains on midazolam and propofol drips and phenobarbital, valproic acid and lacosamide 02/20: Afebrile. Propofol increased to 30 mg/kg/min overnight. Suppressing seizures currently. Increasing antiepileptics per neurology. Tolerating tube feeding. Positive BM. 02/21: Afebrile. Off propofol drip. Midazolam drip at 1 mg an hour. No signs of seizure activity on the last 2 EEGs. Tolerating tube feeding. Positive BM. 02/22: Off all sedation. EEG reveals moderate to severe encephalopathy. No epileptiform activity. Blinks eyes. Withdraws to pain in all 4 extremities. 02/23: Again off all sedation. Phenobarbital decreased to 100 mg every 8 hours per neurology. Opens eyes and blinks. Does not follow commands. Quite edematous. 02/24: Afebrile. Currently on CPAP trial. Opens eyes and blinks. Does not follow commands. Receiving furosemide 40 mg 1 for diuresis. 02/25: T-max 100.4. Patient continues on CPAP trials 27/03.35. Patient not following commands. Patient remains off sedation since 02/22/18. Discussion regarding tracheostomy and PEG placement with family at bedside. 02/26: Patient experienced low-grade temperature last night. Patient tolerated CPAP trials greater than 12 hours yesterday. Plan for tracheostomy and PEG placement today. Noted slight increase in WBC count. Bronchoscopy BAL sputum culture sent post tracheostomy. Phenobarbital and valproic acid levels therapeutic. 02/27: No acute events overnight. The patient's hemoglobin this a.m. was noted to be 6.6 labs repeated consistent with hemoglobin 6.8 the patient is receiving 2 units of packed red blood cells. Patient was noted to be hypocalcemic will receive 2 g calcium gluconate and electrolytes are being repleted. Patient's propofol was discontinued at 1900 on 02/26/18. Patient spontaneously opens eyes to stimulation. Tube feeds resumed post PEG placement. 02/28: Patient opens eyes to stimulation. Complete sedation discontinued since , post tracheostomy and PEG tube placement. CPAP trials in progress. Patient tolerating tube feeds. WBC count slightly elevated, BMP pending. 03/01: Afebrile .WBC count trending down. Patient awake, has spontaneous eye opening, no tracking, not moving extremities. Patient tolerating tube feeds. Continues on CPAP trials 03/02 No events overnight. On ventilator via trach. Afebrile. 03/03 On CPAP / with RSBI in 40s. Decreased PS to 5 and RSBI in 70s, will continue to monitor there and transition to tpiece trial if appropriate. Afebrile. Off sedation, no change in neuro. SUBJECTIVE: 03/04 Tolerating CPAP, transitioned to Tpiece trials. Opens eyes, appears to track, protrudes tongue to command. Functional quadriparesis. Phenobarb level 44 (drawn 1.5 hours after dose), discussed with Dr. Jiang who recommends decrease phenobarbital to 90 mg IV q8 . Objective Vital Signs Date Time Temp Pulse Resp B/P (MAP) Pulse Ox O2 Delivery O2 Flow Rate FiO2 03/04/18 14:00 93 03/04/18 12:00 98.6 24 173/127 (142) 98 03/04/18 10:58 T-piece 35 Intake and Output 03/04/18 03/04/18 03/05/18 08:00 16:00 00:00 Intake Total 976 ml 105 ml Output Total 350 ml Balance 626 ml 105 ml Result Diagram: 03/04/1830903/04/180 Imaging Last Impressions Chest X-Ray 02/27/18 0600 Signed Impressions: Service Date/Time: Tuesday, February 27, 2018 04:51 - CONCLUSION: No significant change. Bautista Wynne MD Renal Ultrasound 02/16/18 0000 Signed Impressions: Service Date/Time: Friday, February 16, 2018 10:17 - CONCLUSION: 1. Unremarkable renal ultrasound examination without evidence for obstructive uropathy. Adin Sanchez MD Head CT 02/10/18 1115 Signed Impressions: Service Date/Time: Saturday, February 10, 2018 12:19 - CONCLUSION: Stable negative noncontrast CT. Mustapha Grossman MD Brain MRI 02/10/18 0000 Signed Impressions: Service Date/Time: Saturday, February 10, 2018 16:30 - CONCLUSION: 1. Stable appearance with no acute hemorrhage, mass or infarction. 2. Moderate atrophic change and stable mild ventricular prominence. Mustapha Grossman MD Last Impressions Chest X-Ray 02/27/18 06 Signed Impressions: Service Date/Time: Tuesday, February 27, 2018 04:51 - CONCLUSION: No significant change. Bautista Wynne MD Renal Ultrasound 02/16/18 0000 Signed Impressions: Service Date/Time: Friday, February 16, 2018 10:17 - CONCLUSION: 1. Unremarkable renal ultrasound examination without evidence for obstructive uropathy. Adin Sanchez MD Head CT 02/10/18 1115 Signed Impressions: Service Date/Time: Saturday, February 10, 2018 12:19 - CONCLUSION: Stable negative noncontrast CT. Mustapha Grossman MD Brain MRI 02/10/18 0000 Signed Impressions: Service Date/Time: Saturday, February 10, 2018 16:30 - CONCLUSION: 1. Stable appearance with no acute hemorrhage, mass or infarction. 2. Moderate atrophic change and stable mild ventricular prominence. Mustapha Grossman MD Last Impressions Chest X-Ray 02/25/18 06 Signed Impressions: Service Date/Time: Sunday, February 25, 2018 04:05 - CONCLUSION: 1. Bilateral lower lobe atelectasis versus pneumonia. There has been no significant change when compared to the prior exam. Inder Maria MD Renal Ultrasound 02/16/18 0000 Signed Impressions: Service Date/Time: Friday, February 16, 2018 10:17 - CONCLUSION: 1. Unremarkable renal ultrasound examination without evidence for obstructive uropathy. Adin Sanchez MD Head CT 02/10/18 1115 Signed Impressions: Service Date/Time: Saturday, February 10, 2018 12:19 - CONCLUSION: Stable negative noncontrast CT. Mustapha Grossman MD Brain MRI 02/10/18 0000 Signed Impressions: Service Date/Time: Saturday, February 10, 2018 16:30 - CONCLUSION: 1. Stable appearance with no acute hemorrhage, mass or infarction. 2. Moderate atrophic change and stable mild ventricular prominence. Mustapha Grossman MD Last Impressions Chest X-Ray 02/24/18 0600 Signed Impressions: Service Date/Time: Saturday, February 24, 2018 04:03 - CONCLUSION: 1. Patchy alveolar disease characteristic of edema or pneumonia. There has been no significant change when compared to the prior exam. Bilateral effusions Inder Maria MD Renal Ultrasound 02/16/18 0000 Signed Impressions: Service Date/Time: Friday, February 16, 2018 10:17 - CONCLUSION: 1. Unremarkable renal ultrasound examination without evidence for obstructive uropathy. Adin Sanchez MD Head CT 02/10/18 1115 Signed Impressions: Service Date/Time: Saturday, February 10, 2018 12:19 - CONCLUSION: Stable negative noncontrast CT. Mustapha Grossman MD Brain MRI 02/10/18 0000 Signed Impressions: Service Date/Time: Saturday, February 10, 2018 16:30 - CONCLUSION: 1. Stable appearance with no acute hemorrhage, mass or infarction. 2. Moderate atrophic change and stable mild ventricular prominence. Mustapha Grossman MD Procedures 02/26-PEG placement 02/26-percutaneous tracheostomy Objective Remarks GENERAL: 67-year-old female with generalized anasarca with no sedation. HEENT: Normocephalic. Atraumatic. Pupils 2mm, equal, round, reactive, conjugate. Mucous membranes are moist and pink.. NECK: Trachea is midline. 8.0 Shiley tracheostomy CHEST: CTAB, tolerating Tpiece. . Equal chest rise CARDIOVASCULAR: RRR. S1, S2 without murmur ABDOMEN: Soft, nontender, obese nondistended. No guarding. PEG site clean dry and intact, tolerating tube feeds. MUSCULOSKELETAL: Pulses 2+. 2+ peripheral edema : Purewick catheter in place. NEUROLOGICAL: Eyes open spontaneously and to stimulation. Has a facial grimace. Tracks. Protrudes tongue to command.. Positive cough and gag. Withdraws very minimally to pain bilateral upper extremities. SKIN: 2+ edema with weeping from ruptured bullae on upper extremities right greater than left. Date of Insertion: Feb 25, 2018 Date of Insertion: Feb 17, 2018 Line: PICC Side: Left Location: Antecubital A/P Assessment and Plan Neuro/Psych: Status epilepticus Elevated IOP Acute encephalopathy Functional quadriparesis Continue antiseizure meds per neuro-valproate, phenobarbital , lacosamide. Phenobarbital decreased to 90 mg IV q8 hours on 03/04 per d/w Dr. Jiang. Repeat level 03/06. Would d/w Dr. Headley on Monday...still lethargic...can phenobarbital be tapered further? MRI brain 02/10 revealed mild ventricular enlargement. Atrophy. EEG 02/24 Improved EEG demonstrating mild encephalopathy in sleep state. Clinical correlation. EEG 02/21 revealed moderate encephalopathy. No epileptic activity EEG 02/20 revealed moderate to severe encephalopathy. No epileptiform activity EEG brain 02/18 revealed suppressed platelets. EEG brain 02/16 revealed left frontal central spiking. -EEG 02/15/18 showed persistent seizure activity 02/14 probable phase reversal noted on left side. 02/15 persistent seizures -EEG repeat 02/12 no active seizures. -off sedation since 02/22. Very slow neuro improvement, now following commands with tongue protrusion, extremities weak. Acetaminophen 650 mg every 6 hours as needed fever Continue bimatoprost 0.01% 1 drop each eye at night with appropriate hospital substitution latanoprost 0.005% 1 drop each eye at night PT/OT daily. Resp: Acute respiratory failure/hypoxic and hypercapnic Doing daily CPAP trials. failed tpiece trial on 03/01. Has been doing daily CPAP. Today Tpiece trial tolerated during day. Will place back to CPAP at night. Ventilator bundle Albuterol/ipratropium aerosols every 6 hours with albuterol aerosols every 2 hours as needed dyspnea Pulm toilet , trach care Continue montelukast 10 mg by tube daily 02/26 S/P tracheostomy placement CXR 03/03- bibasilar consolidation, no significant change. CV: Chronic diastolic heart failure Hypertension Dyslipidemia On lisinopril 10 po bid. HAs still been requiring prn hydralazine/labetalol . Increase Metoprolol 25 per tube bid. Zetia on hold Echo 12/25/14 EF 60-65% grade I diastolic dysfunction. GI Chronic moderate protein energy malnutrition. Gastritis Hiatal hernia OG tube and tube feeds with vital high-protein goal 65 cc/h per nutrition's recommendations Lansoprazole for GI prophylaxis Docusate sodium/senna 1 tablet twice daily for bowel regimen 02/26 PEG placement EGD 02/26 during PEG with mild gastritis at antrum, Antrum biopsy demonstrated chronic inflammation. H. pylori negative Dignishield discontinued 03/03. : Overactive bladder Recent ureteral stent for hydronephrosis -Monitor renal function, electrolytes replacement per protocol -On Lasix 40mg IV BID. Continue diuresis. Continue purewick catheter . Ardon removed 03/03. Potassium 50 MEQ via peg. Renal ultrasound revealed no hydronephrosis 02/16 ID: -UTI with E. coli 02/10 Funguria C. difficile Metronidazole 500 mg by tube 3 times daily for C. difficile 02/22 #11. Afebrile, watching off other antibiotics due to C diff. Dr. Rolle aware of Ecoli in urine, plans to treat if she develops fever. . Removed Ardon, purewick catheter in place. as on micafungin for 02/26 through 03/02 ID following-Dr. Rolle Pertinent cultures 02/28 Urine: E coli. No growth to date blood cultures 2 and sputum 02/19 02/18 -urine culture -C glabrata 02/15 -UA -no growth 02/15 blood cultures 2 -no growth 02/10 -UA -E. coli HEME: Leukocytosis Macrocytic anemia -Monitor CBC. Transfused 2 units on 02/27. Hgb responded and subsequently has been stable without signs of active bleeding. EGD showed gastritis. Resumed Lovenox , monitor for bleeding. Endo Mild hyperglycemia Hypothyroidism Sliding scale insulin with NovoLog with Accu-Cheks to maintain euglycemia/low regimen every 6 hours. Not requiring coverage. TSH was 10.4. Continue levothyroxine to 88 mcg daily Access -Left antecubital PICC line placed 02/17/dual-lumen #16 Prophylaxis -GI -lansoprazole -DVT -SCD/resume enoxaparin PT/OT consulted for daily therapy. Case management consulted for possible transfer to [facility]. Referral placed per case management note 02/28. Appears stable for discharge soon. updated at bedside. Level 2 follow-up. Mita Guerra MD Mar 04, 2018 16:06
[2018-03-04] MEDS ORDERED: POTASSIUM CHLORIDE 25 MEQ EFFERVESCENT TAB PEG ONE (16:15)
[2018-03-04] MEDS: ENOXAPARIN SODIUM 40 MG/0.4 ML SYRINGE SQ SCH (17:31)
[2018-03-04] MEDS: MONTELUKAST SODIUM 10 MG TAB PO SCH (19:35)
[2018-03-04] MEDS: LATANOPROST 0.005% OPHT SOLN 2.5 ML BTL EACH EYE SCH (19:39)
[2018-03-05] VITALS (17 sets, daily range): BP systolic 114–161; BP diastolic 56–79; PULSE 67–79; RESP 17–22; TEMP 97.6–98.5; O2SAT 95–100
[2018-03-05] MEDS: VALPROATE INJ 500 MG in SODIUM CHLORIDE 0.9% INJ 100 ML IV SCH ×6 (00:26→21:00)
[2018-03-05] MEDS: PHENobarbital SOD 130 MG/ML VIAL IV SCH ×3 (01:08→18:11)
[2018-03-05] MEDS: CHLORHEXIDINE GLUCONATE 2 % 1 PACK (2 CLOTHS) TOP SCH (03:31)
[2018-03-05] MEDS: LACOSAMIDE INJ 100 MG in SODIUM CHLORIDE 0.9% INJ 100 ML IV SCH ×3 (03:31→21:00)
[2018-03-05] MEDS: RESP: ALBUTEROL 2.5 MG/IPRATROPIUM 0.5 MG NEB (SCH) NEB ×4 (03:39→20:22)
[2018-03-05 04:05] LABS: AUTOMATED NEUTROPHIL # 6.7 TH/MM3 (1.8-7.7); BASOPHIL % 0.3 % (0.0-2.0); EOSINOPHIL # 0.2 TH/MM3 (0-0.4); EOSINOPHIL % 2.4 % (0.0-4.0); HEMATOCRIT 32.1 % (35.0-46.0); HEMOGLOBIN 10.7 GM/DL (11.6-15.3); LYMPH % 24.7 % (9.0-44.0); LYMPHOCYTE # 2.5 TH/MM3 (1.0-4.8); MEAN CELL VOLUME 97.2 FL (80.0-100.0); MEAN CORPUSCULAR HEMOGLOBIN 32.3 PG (27.0-34.0); MEAN CORPUSCULAR HGB CONC 33.2 % (32.0-36.0); MONO % 7.3 % (0.0-8.0); MONOCYTE # 0.7 TH/MM3 (0-0.9); NEUT % 65.3 % (16.0-70.0); PLATELET COUNT 318 TH/MM3 (150-450); RED CELL DISTRIBUTION WIDTH 19.7 % (11.6-17.2); WHITE BLOOD COUNT 10.2 TH/MM3 (4.0-11.0)
[2018-03-05 04:31] LABS: BICARBONATE 32.2 MEQ/L (21.0-32.0); CALCIUM 8.8 MG/DL (8.5-10.1); CREATININE 0.24 MG/DL (0.50-1.00)
[2018-03-05] MEDS: INSULIN NovoLIN REGULAR SUPPLEMENTAL SCALE SQ SCH ×4 (06:00→17:04)
[2018-03-05] MEDS: LEVOTHYROXINE SODIUM 88 MCG TAB PO SCH (06:42)
[2018-03-05] MEDS: metroNIDAZOLE 500 MG TAB PO SCH ×2 (06:42→12:54)
[2018-03-05] MEDS: ARTIFICIAL TEARS OPTH SOLN 15 ML BTL EACH EYE SCH ×3 (06:43→21:02)
--- NOTE | 2018-03-05 08:13 | HHI.CCPN ---
Subjective Remarks/Hospital Course This is a 67-year-old female with a history of poorly controlled seizures who presents with acute altered mental status. She was last seen normal at 3 AM this morning. Initially she was considered to be a stroke alert, however CT noncontrasted brain was negative and her nonfocal appearance was much more suggestive of seizures and stroke, along with the fact that her last seen normal time was significantly delayed. Stat EEG was ordered and she was found to be in status epilepticus. She was emergently intubated due to her poor mental status. I was called immediately down to the bedside for the EEG demonstrating status. At the bedside, I pushed 10 mg of Versed IV 1 and started her on a Versed drip at 10 mg an hour. No information is available from the patient due to her mental status. ROS is unobtainable. The majority of the information I have is obtained from medical record, and in specifically the H&P documented by Dr. Guerra back in October 2017, which is very helpful. In reading through her chart, it appears that when she comes off her Topamax, she goes into status. It appears that she has recently come off Topamax again due to side effects. She is anaphylactically allergic to Keppra and phenytoin, so these are not available to us to use. Versed drip was used successfully in her last admission October 2017, so that is what we have chosen. I have spoken with Dr. Headley who is not only an on-call neurologist but her personal neurologist who sees her frequently, and he agrees with this plan. He also thinks that Vimpat is a good option for seizure control, which I agree with. We will plan to load her with that. 02/11/18: Remains encephalopathy on the vent. No spontaneous movement noted when Versed is held. Will get a repeat EEG today. Wean sedation only if seizure controlled 02/12: Calm now, no convulsive activity. EEG result pending. Midazolam at 10. 02/13: On continuous EEG monitoring, no seizures noted. Versed had been weaned down to 5 mg/h, propofol at 20 mcg/kg/min. Patient does not open eyes or moves spontaneously 02/14: On attempted sedation wean yesterday night patient developed 2 episodes of seizures. Currently no clinical seizures. I discussed with Dr. Headley, will start phenobarbital 90 mg IV every 8 hours. Repeat EEG today. Currently back on 50 mcg/kg/min of propofol, Versed 7 mg per hour 02/15: Remains heavily sedated, started on phenobarbital IV yesterday. Level only 2.8. Will increase dose to 120 mg every 8 hours repeat level in a.m. EEG today pending. No sedation weaning without clearance from Dr. Headley. EEG yesterday showed some left-sided phase reversal. Leukocytosis with bandemia noted, will re culture 02/16: Pt had persistent epileptiform activity on eeg 02/[address] Headley. No sedation vacation until repeat EEG shows resolution. I have updated about this at the bedside. Repeat cultures pending at this time. Check renal ultrasound as the patient had recent hydronephrosis, ureteral stent. Patient remains critically ill in severely encephalopathic due to uncontrolled seizures 02/17: remains deeply sedated for status epilepticus. phenobarb level 55.[address] Headley managing anti-epileptics: very difficult to control seizures as well as difficult medication titration given multiple anaphylactic allergies to anticonvulsants. 02/18: T-max 100. Currently 99.4. Tolerating tube feeding. No bowel movement. 4 days. Remains sedated on midazolam and propofol drips 02/19: T-max 101.6. Currently 99.6. Tolerating tube feeds. 2 problems overnight. Remains on midazolam and propofol drips and phenobarbital, valproic acid and lacosamide 02/20: Afebrile. Propofol increased to 30 mg/kg/min overnight. Suppressing seizures currently. Increasing antiepileptics per neurology. Tolerating tube feeding. Positive BM. 02/21: Afebrile. Off propofol drip. Midazolam drip at 1 mg an hour. No signs of seizure activity on the last 2 EEGs. Tolerating tube feeding. Positive BM. 02/22: Off all sedation. EEG reveals moderate to severe encephalopathy. No epileptiform activity. Blinks eyes. Withdraws to pain in all 4 extremities. 02/23: Again off all sedation. Phenobarbital decreased to 100 mg every 8 hours per neurology. Opens eyes and blinks. Does not follow commands. Quite edematous. 02/24: Afebrile. Currently on CPAP trial. Opens eyes and blinks. Does not follow commands. Receiving furosemide 40 mg 1 for diuresis. 02/25: T-max 100.4. Patient continues on CPAP trials 27/03.35. Patient not following commands. Patient remains off sedation since 02/22/18. Discussion regarding tracheostomy and PEG placement with family at bedside. 02/26: Patient experienced low-grade temperature last night. Patient tolerated CPAP trials greater than 12 hours yesterday. Plan for tracheostomy and PEG placement today. Noted slight increase in WBC count. Bronchoscopy BAL sputum culture sent post tracheostomy. Phenobarbital and valproic acid levels therapeutic. 02/27: No acute events overnight. The patient's hemoglobin this a.m. was noted to be 6.6 labs repeated consistent with hemoglobin 6.8 the patient is receiving 2 units of packed red blood cells. Patient was noted to be hypocalcemic will receive 2 g calcium gluconate and electrolytes are being repleted. Patient's propofol was discontinued at 1900 on 02/26/18. Patient spontaneously opens eyes to stimulation. Tube feeds resumed post PEG placement. 02/28: Patient opens eyes to stimulation. Complete sedation discontinued since , post tracheostomy and PEG tube placement. CPAP trials in progress. Patient tolerating tube feeds. WBC count slightly elevated, BMP pending. 03/01: Afebrile .WBC count trending down. Patient awake, has spontaneous eye opening, no tracking, not moving extremities. Patient tolerating tube feeds. Continues on CPAP trials 03/02 No events overnight. On ventilator via trach. Afebrile. 03/03 On CPAP / with RSBI in 40s. Decreased PS to 5 and RSBI in 70s, will continue to monitor there and transition to tpiece trial if appropriate. Afebrile. Off sedation, no change in neuro. SUBJECTIVE: 03/04 Tolerating CPAP, transitioned to Tpiece trials. Opens eyes, appears to track, protrudes tongue to command. Functional quadriparesis. Phenobarb level 44 (drawn 1.5 hours after dose), discussed with Dr. Jiang who recommends decrease phenobarbital to 90 mg IV q8 . 03/05 Patient remains on ventilator via trach. Afebrile. Tolerated TP's for most of day yesterday Objective Vital Signs Date Time Temp Pulse Resp B/P (MAP) Pulse Ox O2 Delivery O2 Flow Rate FiO2 03/05/18 06:00 79 03/05/18 04:13 98 35 4/23/18 04:00 98.5 20 161/68 (99) 03/04/18 19:15 T-piece 5.00 Intake and Output 03/05/18 03/05/18 03/05/18 07:59 15:59 23:59 Intake Total 1143 ml Output Total 1000 ml Balance 143 ml Result Diagram: 03/05/18 0350 03/05/18 0350 Other Results Last Impressions Chest X-Ray 03/03/18 0600 Signed Impressions: Service Date/Time: Saturday, March 03, 2018 04:29 - CONCLUSION: No significant change with persistent bibasilar consolidation. Beni Castañeda Jr., MD Renal Ultrasound 02/16/18 0000 Signed Impressions: Service Date/Time: Friday, February 16, 2018 10:17 - CONCLUSION: 1. Unremarkable renal ultrasound examination without evidence for obstructive uropathy. Adin Sanchez MD Head CT 02/10/18 1115 Signed Impressions: Service Date/Time: Saturday, February 10, 2018 12:19 - CONCLUSION: Stable negative noncontrast CT. Mustapha Grossman MD Brain MRI 02/10/18 0000 Signed Impressions: Service Date/Time: Saturday, February 10, 2018 16:30 - CONCLUSION: 1. Stable appearance with no acute hemorrhage, mass or infarction. 2. Moderate atrophic change and stable mild ventricular prominence. Mustapha Grossman MD Imaging Last Impressions Chest X-Ray 02/27/18 0600 Signed Impressions: Service Date/Time: Tuesday, February 27, 2018 04:51 - CONCLUSION: No significant change. Bautista Wynne MD Renal Ultrasound 02/16/18 0000 Signed Impressions: Service Date/Time: Friday, February 16, 2018 10:17 - CONCLUSION: 1. Unremarkable renal ultrasound examination without evidence for obstructive uropathy. Adin Sanchez MD Head CT 02/10/18 1115 Signed Impressions: Service Date/Time: Saturday, February 10, 2018 12:19 - CONCLUSION: Stable negative noncontrast CT. Mustapha Grossman MD Brain MRI 02/10/18 0000 Signed Impressions: Service Date/Time: Saturday, February 10, 2018 16:30 - CONCLUSION: 1. Stable appearance with no acute hemorrhage, mass or infarction. 2. Moderate atrophic change and stable mild ventricular prominence. Mustapha Grossman MD Last Impressions Chest X-Ray 02/27/18 0600 Signed Impressions: Service Date/Time: Tuesday, February 27, 2018 04:51 - CONCLUSION: No significant change. Bautista Wynne MD Renal Ultrasound 02/16/18 0000 Signed Impressions: Service Date/Time: Friday, February 16, 2018 10:17 - CONCLUSION: 1. Unremarkable renal ultrasound examination without evidence for obstructive uropathy. Adin Sanchez MD Head CT 02/10/18 1115 Signed Impressions: Service Date/Time: Saturday, February 10, 2018 12:19 - CONCLUSION: Stable negative noncontrast CT. Mustapha Grossman MD Brain MRI 02/10/18 0000 Signed Impressions: Service Date/Time: Saturday, February 10, 2018 16:30 - CONCLUSION: 1. Stable appearance with no acute hemorrhage, mass or infarction. 2. Moderate atrophic change and stable mild ventricular prominence. Mustapha Grossman MD Last Impressions Chest X-Ray 02/25/18 0600 Signed Impressions: Service Date/Time: Sunday, February 25, 2018 04:05 - CONCLUSION: 1. Bilateral lower lobe atelectasis versus pneumonia. There has been no significant change when compared to the prior exam. Inder Maria MD Renal Ultrasound 02/16/18 0000 Signed Impressions: Service Date/Time: Friday, February 16, 2018 10:17 - CONCLUSION: 1. Unremarkable renal ultrasound examination without evidence for obstructive uropathy. Adin Sanchez MD Head CT 02/10/18 1115 Signed Impressions: Service Date/Time: Saturday, February 10, 2018 12:19 - CONCLUSION: Stable negative noncontrast CT. Mustapha Grossman MD Brain MRI 02/10/18 0000 Signed Impressions: Service Date/Time: Saturday, February 10, 2018 16:30 - CONCLUSION: 1. Stable appearance with no acute hemorrhage, mass or infarction. 2. Moderate atrophic change and stable mild ventricular prominence. Mustapha Grossman MD Last Impressions Chest X-Ray 02/24/18 0600 Signed Impressions: Service Date/Time: Saturday, February 24, 2018 04:03 - CONCLUSION: 1. Patchy alveolar disease characteristic of edema or pneumonia. There has been no significant change when compared to the prior exam. Bilateral effusions Inder Maria MD Renal Ultrasound 02/16/18 0000 Signed Impressions: Service Date/Time: Friday, February 16, 2018 10:17 - CONCLUSION: 1. Unremarkable renal ultrasound examination without evidence for obstructive uropathy. Adin Sanchez MD Head CT 02/10/18 1115 Signed Impressions: Service Date/Time: Saturday, February 10, 2018 12:19 - CONCLUSION: Stable negative noncontrast CT. Mustapha Grossman MD Brain MRI 02/10/18 0000 Signed Impressions: Service Date/Time: Saturday, February 10, 2018 16:30 - CONCLUSION: 1. Stable appearance with no acute hemorrhage, mass or infarction. 2. Moderate atrophic change and stable mild ventricular prominence. Mustapha Grossman MD Procedures 02/26-PEG placement 02/26-percutaneous tracheostomy Objective Remarks GENERAL: 67-year-old female with generalized anasarca with no sedation. HEENT: Normocephalic. Atraumatic. Pupils 2mm, equal, round, reactive, conjugate. Mucous membranes are moist and pink.. NECK: Trachea is midline. 8.0 Shiley tracheostomy CHEST: CTAB, tolerating Tpiece. . Equal chest rise CARDIOVASCULAR: RRR. S1, S2 without murmur ABDOMEN: Soft, nontender, obese nondistended. No guarding. PEG site clean dry and intact, tolerating tube feeds. MUSCULOSKELETAL: Pulses 2+. 2+ peripheral edema : Purewick catheter in place. NEUROLOGICAL: Eyes open spontaneously and to stimulation. Has a facial grimace. Tracks. Protrudes tongue to command.. Positive cough and gag. Withdraws very minimally to pain bilateral upper extremities. SKIN: 2+ edema with weeping from ruptured bullae on upper extremities right greater than left. Date of Insertion: Feb 25, 2018 Date of Insertion: Feb 17, 2018 Line: PICC Side: Left Location: Antecubital A/P Assessment and Plan Neuro/Psych: Status epilepticus Elevated IOP Acute encephalopathy Functional quadriparesis Continue antiseizure meds per neuro-valproate, phenobarbital , lacosamide. Check Phenobarbital level: MRI brain 02/10 revealed mild ventricular enlargement. Atrophy. EEG 02/24 Improved EEG demonstrating mild encephalopathy in sleep state. Clinical correlation. EEG 02/21 revealed moderate encephalopathy. No epileptic activity EEG 02/20 revealed moderate to severe encephalopathy. No epileptiform activity EEG brain 02/18 revealed suppressed platelets. EEG brain 02/16 revealed left frontal central spiking. -EEG 02/15/18 showed persistent seizure activity 02/14 probable phase reversal noted on left side. 02/15 persistent seizures -EEG repeat 02/12 no active seizures. -off sedation since 02/22. Very slow neuro improvement, now following commands with tongue protrusion, extremities weak. Acetaminophen 650 mg every 6 hours as needed fever Continue bimatoprost 0.01% 1 drop each eye at night with appropriate hospital substitution latanoprost 0.005% 1 drop each eye at night PT/OT daily. Resp: Acute respiratory failure/hypoxic and hypercapnic Continue with vent support keep sats >92% Ventilator bundle Albuterol/ipratropium aerosols every 6 hours with albuterol aerosols every 2 hours as needed dyspnea Pulm toilet , trach care Continue montelukast 10 mg by tube daily 02/26 S/P tracheostomy placement Check CXR today CV: Chronic diastolic heart failure Hypertension Dyslipidemia Monitor HR and BP keep MAP>65mmHg On lisinopril 10 po bid, Metoprolol 25 per tube bid. Echo 12/25/14 EF 60-65% grade I diastolic dysfunction. GI Chronic moderate protein energy malnutrition. Gastritis Hiatal hernia OG tube and tube feeds with vital high-protein goal 65 cc/h per nutrition's recommendations Lansoprazole for GI prophylaxis Docusate sodium/senna 1 tablet twice daily for bowel regimen 02/26 PEG placement EGD 02/26 during PEG with mild gastritis at antrum, Antrum biopsy demonstrated chronic inflammation. H. pylori negative : Overactive bladder Recent ureteral stent for hydronephrosis -Monitor renal function, electrolytes replacement per protocol -D/C Lasix Renal ultrasound revealed no hydronephrosis 02/16 ID: -UTI with E. coli 02/10 Funguria C. difficile Metronidazole 500 mg by tube 3 times daily for C. difficile 02/22 #11. Afebrile, watching off other antibiotics due to C diff. Dr. Rolle aware of Ecoli in urine, plans to treat if she develops fever. Ardon removed, purewick catheter in place. as on micafungin for 02/26 through 03/02 ID following-Dr. Rolle Pertinent cultures 02/28 Urine: E coli. No growth to date blood cultures 2 and sputum 02/19 02/18 -urine culture -C glabrata 02/15 -UA -no growth 02/15 blood cultures 2 -no growth 02/10 -UA -E. coli HEME: Leukocytosis Macrocytic anemia -Monitor CBC. Transfused 2 units on 02/27. Hgb responded and subsequently has been stable without signs of active bleeding. EGD showed gastritis. Endo Mild hyperglycemia Hypothyroidism Sliding scale insulin with NovoLog with Accu-Cheks to maintain euglycemia/low regimen every 6 hours. Not requiring coverage. TSH was 10.4. Continue levothyroxine to 88 mcg daily Access -Left antecubital PICC line placed 02/17/dual-lumen Prophylaxis -GI -lansoprazole -DVT -SCD/resume enoxaparin PT/OT consulted for daily therapy. Case management consulted for possible transfer to [facility]. Level 2 follow-up. Frankie Mark MD Mar 05, 2018 08:13
--- NOTE | 2018-03-05 08:53 | RADRPT ---
EXAM DATE/TIME: 03/05/2018 08:07 [facility] COMPARISON: CHEST SINGLE AP, March 03, 2018, 4:29. INDICATIONS : Short of breath MEDICAL HISTORY : Arthritis, hypertension, seizures SURGICAL HISTORY : Hysterectomy. section. thoracic fusion ENCOUNTER: Subsequent ACUITY: 3 weeks PAIN SCORE: Non-responsive. LOCATION: Bilateral chest FINDINGS: There is bilateral lower lobe atelectasis versus pneumonia. There is resolving vascular congestion. S upport lines and tubes are in satisfactory position. CONCLUSION: 1. Resolving pulmonary vascular congestion 2. Bibasilar atelectasis unchanged Inder Maria MD on March 05, 2018 at 8:49 Board Certified Radiologist. This report was verified electronically.
[2018-03-05] MEDS: BACITRACIN TOP OINT 15 GM TUBE TOPICAL SCH ×2 (09:00→21:01)
[2018-03-05] MEDS: SODIUM CHLORIDE 0.9% FLUSH 10 ML FLUSH IV FLUSH SCH (09:00)
[2018-03-05] MEDS: METOPROLOL TARTRATE 25 MG TAB PEG SCH ×2 (09:46→21:01)
[2018-03-05] MEDS: LANSOPRAZOLE SOLUTAB 30 MG TAB NG SCH (09:46)
[2018-03-05] MEDS: DOCUSATE SODIUM 50 MG/SENNA 8.6 MG TAB PO SCH ×2 (09:46→21:01)
[2018-03-05] MEDS: CHLORHEXIDINE 0.12% (ORAL KIT) 15 ML CUP MT SCH ×2 (09:47→21:01)
[2018-03-05] MEDS: LISINOPRIL 10 MG TAB PO SCH ×2 (09:53→21:01)
--- NOTE | 2018-03-05 12:54 | HHI.IDPN ---
Note Infectious Disease Note Patient on T-piece. No distress. Appears comfortable. Opens eyes to voice. Post tracheostomy 02/26. Afebrile. No stools. Rectal bag was discontinued. No seizure activity noted. Presented to the emergency department on 02/10/2018 with acute altered mental status. She was found to be with status epilepticus. In the emergency department, the temperature phyllis to 103 degrees on the evening of admission. She was intubated and EEG has been repeatedly performed and shows that she is continuing to have seizure activity. The patient continues to have fever with temperature spike of 102 early today. She received IV antibiotic treatment for urinary tract infection due to Escherichia coli, which was cultured on admission urine culture. PAST MEDICAL HISTORY: Hypertension, hyperlipidemia, seizure disorder, urinary incontinence, history of back surgery, history of shoulder surgery, hysterectomy, history of knee surgery. ALLERGIES: FLUCONAZOLE, PHENYTOIN, RIFAMPIN, LEVETIRACETAM, HYDROMORPHONE. MEDICATIONS: Current Medications Medications (Trade) Dose Ordered Sig/Tiera Route PRN Reason Start Time Stop Time Status Last Admin Dose Admin Sodium Chloride (NS Flush) 2 ml UNSCH PRN IV FLUSH FLUSH AFTER USING IV ACCESS 02/10/18 11:15 Potassium Chloride 100 ml @ 25 mls/hr Q2H PRN IV For Potassium 2.8 - 3.2 mEq/L 02/10/18 13:15 Potassium Chloride 100 ml @ 50 mls/hr Q2H PRN IV For Potassium 2.8 - 3.2 mEq/L 02/10/18 13:15 02/28/18 05:16 Potassium Bicarb/ Potassium Chloride (K-Lyte Cl Eff) 50 meq UNSCH PRN PO For Potassium 3.3 - 3.5 mEq/L 02/10/18 13:15 03/03/18 08:53 Potassium Chloride 100 ml @ 25 mls/hr UNSCH PRN IV For Potassium 3.3 - 3.5 mEq/L 02/10/18 13:15 Potassium Chloride 100 ml @ 50 mls/hr Q2H PRN IV For Potassium 3.3 - 3.5 mEq/L 02/10/18 13:15 Magnesium Sulfate 4 gm/Sodium Chloride 100 ml @ 50 mls/hr UNSCH PRN IV For Magnesium 0.9 - 1.1 mg/dL 02/10/18 13:15 Magnesium Oxide (Mag-Ox) 800 mg UNSCH PRN PO For Magnesium 1.2 - 1.6 mg/dL 02/10/18 13:15 Magnesium Sulfate 2 gm/Sodium Chloride 100 ml @ 50 mls/hr UNSCH PRN IV For Magnesium 1.2 - 1.6 mg/dL 02/10/18 13:15 Potassium Phosphate (K-Phos) 2,000 mg Q4H PRN PO For Phosphorus < 2.5 mg/dL 02/10/18 13:15 Sodium Phosphate 30 mmol/Sodium Chloride 250 ml @ 42 mls/hr UNSCH PRN IV For Phosphorus < 2.5 mg/dL 02/10/18 13:15 Potassium Phosphate (K-Phos) 2,000 mg UNSCH PRN PO/TUBE SEE LABEL COMMENTS 02/10/18 13:15 Potassium Phosphate 30 mmol/ Sodium Chloride 260 ml @ 42 mls/hr UNSCH PRN IV SEE LABEL COMMENTS 02/10/18 13:15 Chlorhexidine Gluconate (Peridex 0.12% Liq) 15 ml BID@08,20 MT 02/10/18 20:00 03/05/18 09:47 Dextrose (D50w (Vial) Inj) 25 ml UNSCH PRN IV PUSH HYPOGLYCEMIA-SEE COMMENTS 02/10/18 13:15 02/26/18 23:47 Insulin Human Regular (NovoLIN R SUPPLEMENTAL SCALE) 1 Q6HR SQ 02/10/18 18:00 03/03/18 23:08 Ondansetron HCl (Zofran Inj) 4 mg Q6H PRN IV PUSH NAUSEA OR VOMITING 02/10/18 13:15 Miscellaneous Information 1 Q361D XX 02/10/18 13:15 02/10/18 13:15 Chlorhexidine Gluconate (Chlorhexidine 2% Cloth) 3 pack Taper DAILY@04 TOP 02/11/18 04:00 02/07/19 03:59 03/05/18 03:31 Chlorhexidine Gluconate (Chlorhexidine 2% Cloth) 3 pack UNSCH PRN TOP HYGIENIC CARE 02/10/18 13:15 Senna/Docusate Sodium (Anahi-Colace) 1 tab BID PO 02/10/18 21:00 03/05/18 09:46 Magnesium Hydroxide (Milk Of Magnesia Liq) 30 ml Q12H PRN PO Mild constipation 02/10/18 13:15 Sennosides (Senokot) 17.2 mg Q12H PRN PO Moderate constipation 02/10/18 13:15 Bisacodyl (Dulcolax Supp) 10 mg DAILY PRN RECTAL SEVERE CONSITIPATION 02/10/18 13:15 Lactulose (Lactulose Liq) 30 ml DAILY PRN PO SEVERE CONSITIPATION 02/10/18 13:15 Lorazepam (Ativan Inj) 2 mg Q1H PRN IV PUSH seizures 02/11/18 15:00 02/14/18 01:48 Lacosamide 100 mg/ Sodium Chloride 110 ml @ 110 mls/hr Q8H IV 02/15/18 12:00 03/05/18 03:31 Sodium Chloride (NS Flush) See Protocol DAILY IV FLUSH 02/18/18 09:00 03/04/18 08:35 Sodium Chloride (NS Flush) See Protocol UNSCH PRN IV FLUSH SEE PROTOCOL TABLE 02/17/18 17:45 Heparin Sodium (Porcine) (Heparin Central Flush) See Protocol DAILY IV FLUSH 02/18/18 09:00 03/04/18 08:35 Heparin Sodium (Porcine) (Heparin Central Flush) See Protocol UNSCH PRN IV FLUSH SEE PROTOCOL TABLE 02/17/18 17:45 02/28/18 17:34 Sodium Chloride (NS Flush) UNSCH PRN IV FLUSH SEE PROTOCOL TABLE 02/17/18 17:45 02/23/18 15:11 Acetaminophen (Tylenol 650 Mg/ 20 ml Liq) 650 mg Q6H PRN PO fever 02/18/18 09:30 02/26/18 01:21 Artificial Tears (Tears Naturale Opth Soln) 1 drop Q8HR EACH EYE 02/18/18 14:00 03/05/18 06:43 Albuterol Sulfate (Albuterol Neb) 2.5 mg Q2HR NEB PRN NEB dyspnea 02/18/18 09:30 02/28/18 08:37 Labetalol HCl (Trandate Inj) 10 mg Q1H PRN IV PUSH SBP>170, DBP>90 02/18/18 09:30 03/03/18 02:25 Lansoprazole (Prevacid Odt) 30 mg DAILY NG 02/19/18 09:00 03/05/18 09:46 Montelukast Sodium (Singulair) 10 mg HS PO 02/18/18 21:00 03/04/18 19:35 Latanoprost (Xalatan 0.005% Opth Soln) 1 drop HS EACH EYE 02/18/18 21:00 03/04/18 19:39 Nitroglycerin (Nitroglycerin 2% Oint) 2 inch Q6HR PRN TOPICAL SBP>160, DBP>90 02/18/18 13:15 Hydralazine HCl (Apresoline Inj) 10 mg Q1HR PRN IV PUSH SBP>160, DBP>90 02/18/18 13:15 03/04/18 12:19 Terbutaline Sulfate (Brethine Inj) 1 mg UNSCH PRN SQ For Extravasation 02/18/18 18:45 Levothyroxine Sodium (Synthroid) 88 mcg DAILY@0600 PO 02/20/18 06:00 03/05/18 06:42 Valproate Sodium 500 mg/Sodium Chloride 105 ml @ 105 mls/hr Q4HR IV 02/19/18 20:00 03/05/18 09:47 Bacitracin (Baciguent Oint) 1 applic Q12HR TOPICAL 02/21/18 21:00 03/04/18 19:39 Metronidazole (Flagyl) 500 mg Q8HR PO 02/22/18 14:00 03/05/18 06:42 Lisinopril (Prinivil) 10 mg BID PO 02/24/18 21:00 03/05/18 09:53 Albuterol/ Ipratropium (Duoneb Neb) 1 ampule Q6HR NEB NEB 03/03/18 22:00 03/05/18 08:04 Miscellaneous (Pill Splitter) 1 ea UNSCH PRN OTHER SEE LABEL COMMENTS 03/03/18 18:00 Phenobarbital Sodium (Luminal Inj) 90 mg Q8H IV 03/04/18 18:00 03/05/18 09:45 Metoprolol Tartrate (Lopressor) 25 mg Q12HR PEG 03/04/18 21:00 03/05/18 09:46 Enoxaparin Sodium (Lovenox Inj) 40 mg Q24H SQ 03/04/18 16:00 03/04/18 17:31 Objective: Vital Signs Date Time Temp Pulse Resp B/P (MAP) Pulse Ox O2 Delivery O2 Flow Rate FiO2 03/05/18 10:00 78 03/05/18 10:00 72 03/05/18 09:45 40 03/05/18 08:05 100 35 03/05/18 08:00 35 03/05/18 08:00 97.9 78 17 156/63 (94) 100 03/05/18 08:00 78 03/05/18 06:00 79 03/05/18 04:13 98 35 03/05/18 04:00 79 03/05/18 04:00 98.5 79 20 161/68 (99) 97 03/05/18 04:00 35 03/05/18 02:00 74 03/05/18 01:17 97 35 03/05/18 00:00 74 03/05/18 00:00 35 03/05/18 00:00 98.1 74 19 114/56 (75) 97 03/04/18 22:01 96 35 03/04/18 22:00 74 03/04/18 21:27 96 35 03/04/18 21:15 35 03/04/18 20:00 80 03/04/18 20:00 98.5 80 21 138/63 (88) 96 03/04/18 19:15 98 T-piece 5.00 35 03/04/18 18:00 85 03/04/18 16:00 98.4 90 21 157/65 (95) 96 03/04/18 16:00 90 03/04/18 14:00 93 Laboratory Tests Test 03/04/18 03:10 03/05/18 03:50 White Blood Count 12.4 TH/MM3 10.2 TH/MM3 Red Blood Count 3.38 MIL/MM3 3.30 MIL/MM3 Hemoglobin 10.9 GM/DL 10.7 GM/DL Hematocrit 32.9 % 32.1 % Mean Corpuscular Volume 97.3 FL 97.2 FL Mean Corpuscular Hemoglobin 32.2 PG 32.3 PG Mean Corpuscular Hemoglobin Concent 33.1 % 33.2 % Red Cell Distribution Width 19.6 % 19.7 % Platelet Count 315 TH/MM3 318 TH/MM3 Mean Platelet Volume 8.2 FL 8.0 FL Neutrophils (%) (Auto) 76.4 % 65.3 % Lymphocytes (%) (Auto) 15.4 % 24.7 % Monocytes (%) (Auto) 6.6 % 7.3 % Eosinophils (%) (Auto) 1.3 % 2.4 % Basophils (%) (Auto) 0.3 % 0.3 % Neutrophils # (Auto) 9.5 TH/MM3 6.7 TH/MM3 Lymphocytes # (Auto) 1.9 TH/MM3 2.5 TH/MM3 Monocytes # (Auto) 0.8 TH/MM3 0.7 TH/MM3 Eosinophils # (Auto) 0.2 TH/MM3 0.2 TH/MM3 Basophils # (Auto) 0.0 TH/MM3 0.0 TH/MM3 CBC Comment DIFF FINAL DIFF FINAL Differential Comment Laboratory Tests Test 03/04/18 03:10 03/05/18 03:50 Blood Urea Nitrogen 30 MG/DL 33 MG/DL Creatinine 0.32 MG/DL 0.24 MG/DL Random Glucose 124 MG/DL 123 MG/DL Total Protein 6.8 GM/DL Albumin 1.5 GM/DL Calcium Level 8.5 MG/DL 8.8 MG/DL Phosphorus Level 3.5 MG/DL Magnesium Level 1.9 MG/DL Alkaline Phosphatase 57 U/L Aspartate Amino Transf (AST/SGOT) 12 U/L Alanine Aminotransferase (ALT/SGPT) 9 U/L Total Bilirubin 0.2 MG/DL Sodium Level 143 MEQ/L 145 MEQ/L Potassium Level 3.6 MEQ/L 4.0 MEQ/L Chloride Level 105 MEQ/L 106 MEQ/L Carbon Dioxide Level 31.8 MEQ/L 32.2 MEQ/L Anion Gap 6 MEQ/L 7 MEQ/L Estimat Glomerular Filtration Rate 205 ML/MIN 286 ML/MIN Ammonia 33 MCMOL/L Microbiology Date/Time Source Procedure Growth Status 02/28/18 17:00 Urine Catheterized Urine Urine Culture - Final Escherichia Coli Complete Imaging: Chest X-Ray 03/05/18 0000 Signed Impressions: Service Date/Time: Monday, March 05, 2018 08:07 - CONCLUSION: 1. Resolving pulmonary vascular congestion 2. Bibasilar atelectasis unchanged Inder Maria MD Chest X-Ray 03/03/18 06 Signed Impressions: Service Date/Time: Saturday, March 03, 2018 04:29 - CONCLUSION: No significant change with persistent bibasilar consolidation. Beni Castañeda Jr., MD Chest X-Ray 02/27/18 0600 Signed Impressions: Service Date/Time: Tuesday, February 27, 2018 04:51 - CONCLUSION: No significant change. Bautista Wynne MD Chest X-Ray 02/27/18 0000 Signed Impressions: Service Date/Time: Tuesday, February 27, 2018 17:12 - CONCLUSION: Increasing airspace disease especially in the left lung. No other significant change. Ken Avila MD Chest X-Ray 02/26/18 0600 Signed Impressions: Service Date/Time: Monday, February 26, 2018 04:14 - CONCLUSION: No significant change. Bautista Wynne MD Chest X-Ray 02/26/18 0000 Signed Impressions: Service Date/Time: Monday, February 26, 2018 10:46 - CONCLUSION: 1. Tracheostomy good position. No pneumothorax. 2. Persistent bilateral lower lung zone airspace disease and associated pleural effusions. Adin Sanchez MD Chest X-Ray 02/25/18 0600 Signed Impressions: Service Date/Time: Sunday, February 25, 2018 04:05 - CONCLUSION: 1. Bilateral lower lobe atelectasis versus pneumonia. There has been no significant change when compared to the prior exam. Inder Maria MD Chest X-Ray 02/24/18 0600 Signed Impressions: Service Date/Time: Saturday, February 24, 2018 04:03 - CONCLUSION: 1. Patchy alveolar disease characteristic of edema or pneumonia. There has been no significant change when compared to the prior exam. Bilateral effusions Inder Maria MD PHYSICAL EXAMINATION: GENERAL: No acute distress. HEENT: No icterus. Oropharynx is moist mucosa. NECK: Supple, no adenopathy. LUNGS: Decreased breath sounds. HEART: Regular S1 and S2, without murmurs, rubs or gallops. ABDOMEN: Obese, soft, positive bowel sounds. EXTREMITIES: Diffuse edema has decreased. Currently 1+ edema. SKIN: No diffuse rash. NEUROLOGIC: Unable to assess. PSYCHIATRIC: Unable to assess. IMPRESSION: 1. Fever in patient with status epilepticus. Temperature improved. 2. Urinary tract infection due to Kathy. Urine culture now has gram- negative richard. Urinary infection is likely due to indwelling Ardon catheter which the patient appears to need at this time. 3. C. difficile colitis. 4. Acute respiratory failure. 5. Probable sepsis. Blood cultures had no growth. Appears stable. RECOMMENDATIONS: 1. Stop metronidazole. 2. Monitor clinical status. Irving Rolle MD Mar 05, 2018 12:54
[2018-03-05] MEDS: ENOXAPARIN SODIUM 40 MG/0.4 ML SYRINGE SQ SCH (15:37)
[2018-03-05] MEDS: LATANOPROST 0.005% OPHT SOLN 2.5 ML BTL EACH EYE SCH (21:01)
[2018-03-05] MEDS: MONTELUKAST SODIUM 10 MG TAB PO SCH (21:01)
[2018-03-06] VITALS (12 sets, daily range): BP systolic 125–161; BP diastolic 64–79; PULSE 68–90; RESP 14–19; TEMP 98.4–98.7; O2SAT 93–100
[2018-03-06] MEDS: PHENobarbital SOD 130 MG/ML VIAL IV SCH ×3 (00:37→17:31)
[2018-03-06] MEDS: VALPROATE INJ 500 MG in SODIUM CHLORIDE 0.9% INJ 100 ML IV SCH ×5 (00:37→17:28)
[2018-03-06] MEDS: CHLORHEXIDINE GLUCONATE 2 % 1 PACK (2 CLOTHS) TOP SCH (04:00)
[2018-03-06] MEDS: RESP: ALBUTEROL 2.5 MG/IPRATROPIUM 0.5 MG NEB (SCH) NEB ×3 (05:19→16:07)
[2018-03-06] MEDS: LACOSAMIDE INJ 100 MG in SODIUM CHLORIDE 0.9% INJ 100 ML IV SCH ×2 (05:51→12:05)
[2018-03-06] MEDS: LEVOTHYROXINE SODIUM 88 MCG TAB PO SCH (05:52)
[2018-03-06] MEDS: INSULIN NovoLIN REGULAR SUPPLEMENTAL SCALE SQ SCH ×3 (05:52→12:00)
[2018-03-06] MEDS: ARTIFICIAL TEARS OPTH SOLN 15 ML BTL EACH EYE SCH ×2 (05:52→12:07)
[2018-03-06 06:41] LABS: AUTOMATED NEUTROPHIL # 8.2 TH/MM3 (1.8-7.7); BASOPHIL # 0.1 TH/MM3 (0-0.2); BASOPHIL % 0.6 % (0.0-2.0); EOSINOPHIL # 0.3 TH/MM3 (0-0.4); EOSINOPHIL % 2.8 % (0.0-4.0); HEMATOCRIT 33.3 % (35.0-46.0); LYMPH % 20.3 % (9.0-44.0); LYMPHOCYTE # 2.4 TH/MM3 (1.0-4.8); MEAN CELL VOLUME 98.5 FL (80.0-100.0); MEAN CORPUSCULAR HEMOGLOBIN 32.5 PG (27.0-34.0); MEAN PLATELET VOLUME 8.8 FL (7.0-11.0); MONO % 6.5 % (0.0-8.0); MONOCYTE # 0.8 TH/MM3 (0-0.9); NEUT % 69.8 % (16.0-70.0); PLATELET COUNT 350 TH/MM3 (150-450); RED BLOOD COUNT 3.38 MIL/MM3 (4.00-5.30); RED CELL DISTRIBUTION WIDTH 19.4 % (11.6-17.2); WHITE BLOOD COUNT 11.8 TH/MM3 (4.0-11.0)
[2018-03-06 06:52] LABS: BICARBONATE 30.8 MEQ/L (21.0-32.0); CREATININE 0.28 MG/DL (0.50-1.00)
[2018-03-06] MEDS: DOCUSATE SODIUM 50 MG/SENNA 8.6 MG TAB PO SCH (08:38)
[2018-03-06] MEDS: LISINOPRIL 10 MG TAB PO SCH (08:38)
[2018-03-06] MEDS: LANSOPRAZOLE SOLUTAB 30 MG TAB NG SCH (08:38)
[2018-03-06] MEDS: METOPROLOL TARTRATE 25 MG TAB PEG SCH (08:38)
[2018-03-06] MEDS: SODIUM CHLORIDE 0.9% FLUSH 10 ML FLUSH IV FLUSH SCH (08:40)
[2018-03-06] MEDS: CHLORHEXIDINE 0.12% (ORAL KIT) 15 ML CUP MT SCH (08:40)
[2018-03-06] MEDS: BACITRACIN TOP OINT 15 GM TUBE TOPICAL SCH (08:41)
--- NOTE | 2018-03-06 09:30 | HHI.CCPN ---
Subjective Remarks/Hospital Course This is a 67-year-old female with a history of poorly controlled seizures who presents with acute altered mental status. She was last seen normal at 3 AM this morning. Initially she was considered to be a stroke alert, however CT noncontrasted brain was negative and her nonfocal appearance was much more suggestive of seizures and stroke, along with the fact that her last seen normal time was significantly delayed. Stat EEG was ordered and she was found to be in status epilepticus. She was emergently intubated due to her poor mental status. I was called immediately down to the bedside for the EEG demonstrating status. At the bedside, I pushed 10 mg of Versed IV 1 and started her on a Versed drip at 10 mg an hour. No information is available from the patient due to her mental status. ROS is unobtainable. The majority of the information I have is obtained from medical record, and in specifically the H&P documented by Dr. Guerra back in October 2017, which is very helpful. In reading through her chart, it appears that when she comes off her Topamax, she goes into status. It appears that she has recently come off Topamax again due to side effects. She is anaphylactically allergic to Keppra and phenytoin, so these are not available to us to use. Versed drip was used successfully in her last admission October 2017, so that is what we have chosen. I have spoken with Dr. Headley who is not only an on-call neurologist but her personal neurologist who sees her frequently, and he agrees with this plan. He also thinks that Vimpat is a good option for seizure control, which I agree with. We will plan to load her with that. 02/11/18: Remains encephalopathy on the vent. No spontaneous movement noted when Versed is held. Will get a repeat EEG today. Wean sedation only if seizure controlled 02/12: Calm now, no convulsive activity. EEG result pending. Midazolam at 10. 02/13: On continuous EEG monitoring, no seizures noted. Versed had been weaned down to 5 mg/h, propofol at 20 mcg/kg/min. Patient does not open eyes or moves spontaneously 02/14: On attempted sedation wean yesterday night patient developed 2 episodes of seizures. Currently no clinical seizures. I discussed with Dr. Headley, will start phenobarbital 90 mg IV every 8 hours. Repeat EEG today. Currently back on 50 mcg/kg/min of propofol, Versed 7 mg per hour 02/15: Remains heavily sedated, started on phenobarbital IV yesterday. Level only 2.8. Will increase dose to 120 mg every 8 hours repeat level in a.m. EEG today pending. No sedation weaning without clearance from Dr. Headley. EEG yesterday showed some left-sided phase reversal. Leukocytosis with bandemia noted, will re culture 02/16: Pt had persistent epileptiform activity on eeg 02/[address] Headley. No sedation vacation until repeat EEG shows resolution. I have updated about this at the bedside. Repeat cultures pending at this time. Check renal ultrasound as the patient had recent hydronephrosis, ureteral stent. Patient remains critically ill in severely encephalopathic due to uncontrolled seizures 02/17: remains deeply sedated for status epilepticus. phenobarb level 55.[address] Headley managing anti-epileptics: very difficult to control seizures as well as difficult medication titration given multiple anaphylactic allergies to anticonvulsants. 02/18: T-max 100. Currently 99.4. Tolerating tube feeding. No bowel movement. 4 days. Remains sedated on midazolam and propofol drips 02/19: T-max 101.6. Currently 99.6. Tolerating tube feeds. 2 problems overnight. Remains on midazolam and propofol drips and phenobarbital, valproic acid and lacosamide 02/20: Afebrile. Propofol increased to 30 mg/kg/min overnight. Suppressing seizures currently. Increasing antiepileptics per neurology. Tolerating tube feeding. Positive BM. 02/21: Afebrile. Off propofol drip. Midazolam drip at 1 mg an hour. No signs of seizure activity on the last 2 EEGs. Tolerating tube feeding. Positive BM. 02/22: Off all sedation. EEG reveals moderate to severe encephalopathy. No epileptiform activity. Blinks eyes. Withdraws to pain in all 4 extremities. 02/23: Again off all sedation. Phenobarbital decreased to 100 mg every 8 hours per neurology. Opens eyes and blinks. Does not follow commands. Quite edematous. 02/24: Afebrile. Currently on CPAP trial. Opens eyes and blinks. Does not follow commands. Receiving furosemide 40 mg 1 for diuresis. 02/25: T-max 100.4. Patient continues on CPAP trials 27/03.35. Patient not following commands. Patient remains off sedation since 02/22/18. Discussion regarding tracheostomy and PEG placement with family at bedside. 02/26: Patient experienced low-grade temperature last night. Patient tolerated CPAP trials greater than 12 hours yesterday. Plan for tracheostomy and PEG placement today. Noted slight increase in WBC count. Bronchoscopy BAL sputum culture sent post tracheostomy. Phenobarbital and valproic acid levels therapeutic. 02/27: No acute events overnight. The patient's hemoglobin this a.m. was noted to be 6.6 labs repeated consistent with hemoglobin 6.8 the patient is receiving 2 units of packed red blood cells. Patient was noted to be hypocalcemic will receive 2 g calcium gluconate and electrolytes are being repleted. Patient's propofol was discontinued at 1900 on 02/26/18. Patient spontaneously opens eyes to stimulation. Tube feeds resumed post PEG placement. 02/28: Patient opens eyes to stimulation. Complete sedation discontinued since , post tracheostomy and PEG tube placement. CPAP trials in progress. Patient tolerating tube feeds. WBC count slightly elevated, BMP pending. 03/01: Afebrile .WBC count trending down. Patient awake, has spontaneous eye opening, no tracking, not moving extremities. Patient tolerating tube feeds. Continues on CPAP trials 03/02 No events overnight. On ventilator via trach. Afebrile. 03/03 On CPAP / with RSBI in 40s. Decreased PS to 5 and RSBI in 70s, will continue to monitor there and transition to tpiece trial if appropriate. Afebrile. Off sedation, no change in neuro. SUBJECTIVE: 03/04 Tolerating CPAP, transitioned to Tpiece trials. Opens eyes, appears to track, protrudes tongue to command. Functional quadriparesis. Phenobarb level 44 (drawn 1.5 hours after dose), discussed with Dr. Jiang who recommends decrease phenobarbital to 90 mg IV q8 . 03/05 Patient remains on ventilator via trach. Afebrile. Tolerated TP's for most of day yesterday 03/06 Patient has been on TP's with 40% FIO2 since last night. Afebrile. Objective Vital Signs Date Time Temp Pulse Resp B/P (MAP) Pulse Ox O2 Delivery O2 Flow Rate FiO2 03/06/18 06:00 90 03/06/18 04:00 98.6 19 161/68 (99) 93 03/05/18 20:22 T-piece 5.00 40 Intake and Output 03/06/18 03/06/18 03/07/18 08:00 16:00 00:00 Intake Total 1069 ml Output Total 800 ml Balance 269 ml Result Diagram: 03/06/18 0600 03/06/18 0600 Other Results Last Impressions Chest X-Ray 03/05/18 0000 Signed Impressions: Service Date/Time: Monday, March 05, 2018 08:07 - CONCLUSION: 1. Resolving pulmonary vascular congestion 2. Bibasilar atelectasis unchanged Inder Maria MD Renal Ultrasound 02/16/18 0000 Signed Impressions: Service Date/Time: Friday, February 16, 2018 10:17 - CONCLUSION: 1. Unremarkable renal ultrasound examination without evidence for obstructive uropathy. Adin Sanchez MD Head CT 02/10/18 1115 Signed Impressions: Service Date/Time: Saturday, February 10, 2018 12:19 - CONCLUSION: Stable negative noncontrast CT. Mustapha Grossman MD Brain MRI 02/10/18 0000 Signed Impressions: Service Date/Time: Saturday, February 10, 2018 16:30 - CONCLUSION: 1. Stable appearance with no acute hemorrhage, mass or infarction. 2. Moderate atrophic change and stable mild ventricular prominence. Mustapha Grossman MD Imaging Last Impressions Chest X-Ray 02/27/18 0600 Signed Impressions: Service Date/Time: Tuesday, February 27, 2018 04:51 - CONCLUSION: No significant change. Bautista Wynne MD Renal Ultrasound 02/16/18 0000 Signed Impressions: Service Date/Time: Friday, February 16, 2018 10:17 - CONCLUSION: 1. Unremarkable renal ultrasound examination without evidence for obstructive uropathy. Adin Sanchez MD Head CT 02/10/18 1115 Signed Impressions: Service Date/Time: Saturday, February 10, 2018 12:19 - CONCLUSION: Stable negative noncontrast CT. Mustapha Grossman MD Brain MRI 02/10/18 0000 Signed Impressions: Service Date/Time: Saturday, February 10, 2018 16:30 - CONCLUSION: 1. Stable appearance with no acute hemorrhage, mass or infarction. 2. Moderate atrophic change and stable mild ventricular prominence. Mustapha Grossman MD Last Impressions Chest X-Ray 02/27/18 0600 Signed Impressions: Service Date/Time: Tuesday, February 27, 2018 04:51 - CONCLUSION: No significant change. Bautista Wynne MD Renal Ultrasound 02/16/18 0000 Signed Impressions: Service Date/Time: Friday, February 16, 2018 10:17 - CONCLUSION: 1. Unremarkable renal ultrasound examination without evidence for obstructive uropathy. Adin Sanchez MD Head CT 02/10/18 1115 Signed Impressions: Service Date/Time: Saturday, February 10, 2018 12:19 - CONCLUSION: Stable negative noncontrast CT. Mustapha Grossman MD Brain MRI 02/10/18 0000 Signed Impressions: Service Date/Time: Saturday, February 10, 2018 16:30 - CONCLUSION: 1. Stable appearance with no acute hemorrhage, mass or infarction. 2. Moderate atrophic change and stable mild ventricular prominence. Mustapha Grossman MD Last Impressions Chest X-Ray 02/25/18 0600 Signed Impressions: Service Date/Time: Sunday, February 25, 2018 04:05 - CONCLUSION: 1. Bilateral lower lobe atelectasis versus pneumonia. There has been no significant change when compared to the prior exam. Inder Maria MD Renal Ultrasound 02/16/18 0000 Signed Impressions: Service Date/Time: Friday, February 16, 2018 10:17 - CONCLUSION: 1. Unremarkable renal ultrasound examination without evidence for obstructive uropathy. Adin Sanchez MD Head CT 02/10/18 1115 Signed Impressions: Service Date/Time: Saturday, February 10, 2018 12:19 - CONCLUSION: Stable negative noncontrast CT. Mustapha Grossman MD Brain MRI 02/10/18 0000 Signed Impressions: Service Date/Time: Saturday, February 10, 2018 16:30 - CONCLUSION: 1. Stable appearance with no acute hemorrhage, mass or infarction. 2. Moderate atrophic change and stable mild ventricular prominence. Mustapha Grossman MD Last Impressions Chest X-Ray 02/24/18 0600 Signed Impressions: Service Date/Time: Saturday, February 24, 2018 04:03 - CONCLUSION: 1. Patchy alveolar disease characteristic of edema or pneumonia. There has been no significant change when compared to the prior exam. Bilateral effusions Inder Maria MD Renal Ultrasound 02/16/18 0000 Signed Impressions: Service Date/Time: Friday, February 16, 2018 10:17 - CONCLUSION: 1. Unremarkable renal ultrasound examination without evidence for obstructive uropathy. Adin Sanchez MD Head CT 02/10/18 1115 Signed Impressions: Service Date/Time: Saturday, February 10, 2018 12:19 - CONCLUSION: Stable negative noncontrast CT. Mustapha Grossman MD Brain MRI 02/10/18 0000 Signed Impressions: Service Date/Time: Saturday, February 10, 2018 16:30 - CONCLUSION: 1. Stable appearance with no acute hemorrhage, mass or infarction. 2. Moderate atrophic change and stable mild ventricular prominence. Mustapha Grossman MD Procedures 02/26-PEG placement 02/26-percutaneous tracheostomy Objective Remarks GENERAL: 67-year-old female with generalized anasarca with no sedation. HEENT: Normocephalic. Atraumatic. Pupils 2mm, equal, round, reactive, conjugate. Mucous membranes are moist and pink.. NECK: Trachea is midline. 8.0 Shiley tracheostomy CHEST: CTAB, tolerating Tpiece. . Equal chest rise CARDIOVASCULAR: RRR. S1, S2 without murmur ABDOMEN: Soft, nontender, obese nondistended. No guarding. PEG site clean dry and intact, tolerating tube feeds. MUSCULOSKELETAL: Pulses 2+. 2+ peripheral edema : Purewick catheter in place. NEUROLOGICAL: Eyes open spontaneously and to stimulation. Has a facial grimace. Tracks. Protrudes tongue to command.. Positive cough and gag. Withdraws very minimally to pain bilateral upper extremities. SKIN: 2+ edema with weeping from ruptured bullae on upper extremities right greater than left. Date of Insertion: Feb 25, 2018 Date of Insertion: Feb 17, 2018 Line: PICC Side: Left Location: Antecubital A/P Assessment and Plan Neuro/Psych: Status epilepticus Elevated IOP Acute encephalopathy Functional quadriparesis Continue antiseizure meds per neuro-valproate, phenobarbital , lacosamide. Check Phenobarbital level: MRI brain 02/10 revealed mild ventricular enlargement. Atrophy. EEG 02/24 Improved EEG demonstrating mild encephalopathy in sleep state. Clinical correlation. EEG 02/21 revealed moderate encephalopathy. No epileptic activity EEG 02/20 revealed moderate to severe encephalopathy. No epileptiform activity EEG brain 02/18 revealed suppressed platelets. EEG brain 02/16 revealed left frontal central spiking. -EEG 02/15/18 showed persistent seizure activity 02/14 probable phase reversal noted on left side. 02/15 persistent seizures -EEG repeat 02/12 no active seizures. -off sedation since 02/22. Very slow neuro improvement, now following commands with tongue protrusion, extremities weak. Acetaminophen 650 mg every 6 hours as needed fever Continue bimatoprost 0.01% 1 drop each eye at night with appropriate hospital substitution latanoprost 0.005% 1 drop each eye at night PT/OT daily. Resp: Acute respiratory failure/hypoxic and hypercapnic Continue with oxyge keep sats >92% Albuterol/ipratropium aerosols every 6 hours with albuterol aerosols every 2 hours as needed dyspnea Pulm toilet , trach care Continue montelukast 10 mg by tube daily 02/26 S/P tracheostomy placement CXR 03/05 resolving pulmonary vascular congestion, bibasilar atelectasis CV: Chronic diastolic heart failure Hypertension Dyslipidemia Monitor HR and BP keep MAP>65mmHg On lisinopril 10 po bid, Metoprolol 25 per tube bid. Echo 12/25/14 EF 60-65% grade I diastolic dysfunction. GI Chronic moderate protein energy malnutrition. Gastritis Hiatal hernia OG tube and tube feeds with vital high-protein goal 65 cc/h per nutrition's recommendations Lansoprazole for GI prophylaxis Docusate sodium/senna 1 tablet twice daily for bowel regimen 02/26 PEG placement EGD 02/26 during PEG with mild gastritis at antrum, Antrum biopsy demonstrated chronic inflammation. H. pylori negative : Overactive bladder Recent ureteral stent for hydronephrosis -Monitor renal function, electrolytes replacement per protocol Renal ultrasound revealed no hydronephrosis 02/16 ID: -UTI with E. coli 02/10 Funguria C. difficile Off abx s/p Metronidazole course for C. difficile Monitor off abx, ID is following- Dr. Rolle Ardon removed, purewick catheter in place. Pertinent cultures 02/28 Urine: E coli. No growth to date blood cultures 2 and sputum 02/19 02/18 -urine culture -C glabrata 02/15 -UA -no growth 02/15 blood cultures 2 -no growth 02/10 -UA -E. coli HEME: Leukocytosis Macrocytic anemia -Monitor CBC. Transfused 2 units on 02/27. Hgb responded and subsequently has been stable without signs of active bleeding. EGD showed gastritis. Endo Mild hyperglycemia Hypothyroidism Sliding scale insulin with NovoLog with Accu-Cheks to maintain euglycemia/low regimen every 6 hours. TSH was 10.4. Continue levothyroxine to 88 mcg daily Access -Left antecubital PICC line placed 02/17/dual-lumen Prophylaxis -GI -lansoprazole -DVT -SCD/ enoxaparin PT/OT consulted for daily therapy. Patient is [facility] by ID. Discussed with Dr. Rolle Level 2 follow-up. Frankie Mark MD Mar 06, 2018 09:30
[2018-03-06] MEDS: ENOXAPARIN SODIUM 40 MG/0.4 ML SYRINGE SQ SCH (17:28)
== END 2018-03-06 18:15 | DRG 4 ==
LOC: NEPC 11:08 → NEDA 13:10 → HIMW 17:00 → HIMN 02-22 01:20
PROVIDERS: ADMIT Internal Medicine Critical Care Medicine; ATTEND Internal Medicine Critical Care Medicine
PROC: 5A1955Z Respiratory Ventilation, Greater than 96 Consecutive Hours (ICD-10-PCS; 2018-02-10)
PROC: 0BH17EZ Insertion of Endotracheal Airway into Trachea, Via Natural or Artificial Opening (ICD-10-PCS; 2018-02-10)
PROC: 0T9B70Z Drainage of Bladder with Drainage Device, Via Natural or Artificial Opening (ICD-10-PCS; 2018-02-10)
PROC: 0D9670Z Drainage of Stomach with Drainage Device, Via Natural or Artificial Opening (ICD-10-PCS; 2018-02-10)
PROC: 0B9J8ZX Drainage of Left Lower Lung Lobe, Via Natural or Artificial Opening Endoscopic, Diagnostic (ICD-10-PCS; 2018-02-26)
PROC: 0DH63UZ Insertion of Feeding Device into Stomach, Percutaneous Approach (ICD-10-PCS; 2018-02-26)
PROC: 0B113F4 Bypass Trachea to Cutaneous with Tracheostomy Device, Percutaneous Approach (ICD-10-PCS; principal; 2018-02-26 15:11)
PROC: 30233N1 Transfusion of Nonautologous Red Blood Cells into Peripheral Vein, Percutaneous Approach (ICD-10-PCS; 2018-02-27)
DX: G40.911 Epilepsy, unspecified, intractable, with status epilepticus (principal); G93.40 Encephalopathy, unspecified; A41.9 Sepsis, unspecified organism; L89.152 Pressure ulcer of sacral region, stage 2; E87.0 Hyperosmolality and hypernatremia; R53.2 Functional quadriplegia; J18.9 Pneumonia, unspecified organism; J96.01 Acute respiratory failure with hypoxia; J96.02 Acute respiratory failure with hypercapnia; B37.49 Other urogenital candidiasis; J98.11 Atelectasis; A04.72 Enterocolitis due to Clostridium difficile, not specified as recurrent; E44.0 Moderate protein-calorie malnutrition; Z99.11 Dependence on respirator [ventilator] status; E87.2 Acidosis; I50.32 Chronic diastolic (congestive) heart failure; N39.0 Urinary tract infection, site not specified; I11.0 Hypertensive heart disease with heart failure; E03.9 Hypothyroidism, unspecified; E78.5 Hyperlipidemia, unspecified; J45.909 Unspecified asthma, uncomplicated; M19.90 Unspecified osteoarthritis, unspecified site; K21.9 Gastro-esophageal reflux disease without esophagitis; H40.9 Unspecified glaucoma; Z87.440 Personal history of urinary (tract) infections; B96.20 Unspecified Escherichia coli [E. coli] as the cause of diseases classified elsewhere; D69.6 Thrombocytopenia, unspecified; R13.10 Dysphagia, unspecified; K29.70 Gastritis, unspecified, without bleeding; K44.9 Diaphragmatic hernia without obstruction or gangrene; N32.81 Overactive bladder; Z90.710 Acquired absence of both cervix and uterus; R32 Unspecified urinary incontinence; E83.51 Hypocalcemia; D53.9 Nutritional anemia, unspecified; R23.8 Other skin changes
CPT/HCPCS: 31500; 31600; 31624; 36430; 36569; 36600; 51702; 70450; 70553; 71045; 76775; 76937; 80048; 80053; 80164; 80184; 81001; 82140; 82550; 82805; 82948; 83605; 83735; 84100; 84132; 84155; 84439; 84443; 84481; 84484; 85007; 85014; 85018; 85025; 85027; 85610; 85730; 86022; 86850; 86900; 86901; 86920; 87015; 87040; 87070; 87077; 87086; 87102; 87116; 87186; 87205; 87206; 87493; 87641; 88305; 88312; 93005; 94002; 94003; 94640; 94664; 95819; 96374; 96375; A7521; A9579; C9254; J0330; J0360; J0610; J0692; J0696; J1642; J1650; J1940; J2060; J2248; J2250; J2370; J2543; J2560; J3010; J3370; J3480; J7030; J7040; J7050; J7060; J7070; J7613; P9016; P9047